=== PATIENT | male | born 1955 | race Caucasian/White ===

== ENCOUNTER 2017-07-15 16:54 | Inpatient (IN) | payer BC ==
[~2017-07-15] VITALS: Ht 177.8 cm; Wt 95.8 kg
[~2017-07-15 16:54] MED LIST: ALLO100T PO; AZIT250T12 PO; COLC0.6T53 PO; EMERGEN-C PO; FURO40TA4 PO; IPRA3AMP INH; LISI-556 PO; METO50TA15 PO; NEBU-140 MC; POTA-51 PO; RT-ALBUINH IH
--- OUTSIDE RECORDS SUMMARY | 2017-07-15 16:59 | XMS REPORT | Clinical Summary ---
Author Author [facility] Organization [facility] Address Unknown Phone Unavailable Care Team Providers Care Puddler [employer] D[employer] Name Role Phone PCP Unavailable Source Comments Some departments are not documenting in the electronic medical record. If you do not see the information that you expected, contact Release of Information in the Health Information Management department at [phone] for further assistance in locating additional records.[facility] Allergies No Known Allergies Current Medications Prescription Sig. Disp. Refills Start End Date Status Date albuterol (VENTOLIN HFA, Inhale 2 Puffs by mouth Active PROAIR HFA) 90 every 6 hours as needed mcg/actuation inhaler for Wheezing. colchicine 0.6 mg tablet Take 1.2 mg by mouth as Active Needed. lisinopril (PRINIVIL, Take 2.5 mg by mouth Active ZESTRIL) 2.5 mg tablet daily. albuterol-ipratropium Inhale 3 mL solution as Active (DUONEB) 0.5 mg-3 mg(2.5 directed every 4 hours as mg base)/3 mL nebulizer needed for Wheezing. solution furosemide (LASIX) 40 mg Take 40 mg by mouth twice Active tablet daily. allopurinol (ZYLOPRIM) Take 100 mg by mouth Active 100 mg tablet twice daily. metoprolol (LOPRESSOR) 25 Take 1 Tab by mouth twice 180 Tab 3 Active mg tablet daily. 15 Active Problems Problem Noted Date NICM (nonischemic cardiomyopathy) ([facility]) 06/01/2015 Alcohol use 06/01/2015 Tobacco use disorder 06/01/2015 Atrial flutter ([facility]) 05/31/2015 Family History Relation Name Status Comments Father Mother Alive Social History Tobacco Use Types Packs/Day Years Used Date Former Smoker Cigarettes 1 20 Quit: 04/30/2015 Tobacco Cessation: Counseling Given: Yes Alcohol Use Drinks/Week oz/Week Comments Yes 17 Shots of 10.2 liquor Sex Assigned at Date Recorded Not on file Last Filed Vital Signs Vital Sign Reading Time Taken Blood Pressure 111/66 06/02/2015 8:36 AM CDT Pulse 87 06/02/2015 9:10 AM CDT Temperature 36.8 C (98.3 F) 06/02/2015 8:36 AM CDT Respiratory Rate - - Oxygen Saturation 92% 06/02/2015 9:10 AM CDT Inhaled Oxygen - - Concentration Weight 87.5 kg (193 lb) 06/02/2015 7:15 AM CDT Height 180.3 cm (5' 10.98") 06/01/2015 1:12 PM CDT Body Mass Index 26.93 06/02/2015 7:15 AM CDT Plan of Treatment Health Maintenance Due Date Last Done Comments HEPATITIS C SCREENING 1955 PHYSICAL (COMPREHENSIVE) 12/22/1962 EXAM PERTUSSIS VACCINE 12/22/1966 TETANUS VACCINE 12/22/1972 COLORECTAL CANCER 12/22/2005 SCREENING SHINGLES VACCINE 2015 INFLUENZA VACCINE 03/03/2017 Results Not on filefrom Last 3 Months
--- OUTSIDE RECORDS SUMMARY | 2017-07-15 17:00 | XMS REPORT | Continuity of Care Document ---
Author Author [facility] Address Unknown Phone Unavailable Allergies Active Description Code Type Severity Reaction Onset Reported/Identified Relationship to Patient Clinical Status Yes No Known Drug Allergies [id number] Drug Allergy Unknown N/ A 12/09/2013 Medications Problems Date Dx Coded Attending Type Code Diagnosis Diagnosed By 06/23/2013 ELVIRA BARRIENTOS APRN V06.1 TDAP DX 05/02/2015 Ot 288.60 05/02/2015 Ot 786.07 05/02/2015 Ot 786.2 05/02/2015 MEMO LOPEZ, NATALIE Walton Ot 211.3 05/02/2015 MEMO LOPEZ, NATALIE Walton Ot 562.10 05/02/2015 MEMO LOPEZ, NATALIE Walton Ot V76.51 05/02/2015 NATALIE HAMPTON MD Ot V72.84 05/11/2015 Ot 288.60 05/11/2015 Ot 786.07 05/11/2015 Ot 786.2 05/11/2015 MEMO LOPEZ, NATALIE Walton Ot 211.3 05/11/2015 MEMO LOPEZ, NATALIE Walton Ot 562.10 05/11/2015 MEMO LOPEZ, NATALIE Walton Ot V76.51 05/11/2015 NATALIE HAMPTON MD Ot V72.84 05/24/2015 CALE LOPEZ, KEHINDE Issa Ot F17.210 05/24/2015 CALE LOPEZ, KEHINDE Issa Ot I10 05/24/2015 CALE LOPEZ, KEHINDE Issa Ot I42.9 05/24/2015 CALE LOPEZ, KEHINDE Issa Ot I44.1 05/24/2015 CALE LOPEZ, KEHINDE Issa Ot I48.92 05/24/2015 CALE LOPEZ, KEHINDE Issa Ot I50.21 05/24/2015 CALE LOPEZ, KEHINDE Issa Ot R60.0 05/25/2015 CALE LOPEZ, KEHINDE Issa Ot F17.210 05/25/2015 CALE LOPEZ, KEHINDE Issa Ot I10 05/25/2015 KEHINDE MADSEN MD Ot I42.9 05/25/2015 KEHINDE MADSEN MD Ot I44.1 05/25/2015 KEHINDE MADSEN MD Ot I48.92 05/25/2015 KEHINDE MADSEN MD Ot I50.21 05/25/2015 KEHINDE MADSEN MD Ot R60.0 05/25/2015 KEHINDE MADSEN MD Ot F17.210 05/25/2015 KEHINDE MADSEN MD Ot I10 05/25/2015 KEHINDE MADSEN MD Ot I42.9 05/25/2015 KEHINDE MADSEN MD Ot I44.1 05/25/2015 KEHINDE MADSEN MD Ot I48.92 05/25/2015 KEHINDE MADSEN MD Ot I50.21 05/25/2015 KEHINDE MADSEN MD Ot R60.0 05/25/2015 KEHINDE MADSEN MD Ot F17.210 NICOTINE DEPENDENCE, CIGARETTES, UNCOMPL 05/25/2015 KEHINDE MADSEN MD Ot I10 ESSENTIAL (PRIMARY) HYPERTENSION 05/25/2015 KEHINDE MADSEN MD Ot I42.9 CARDIOMYOPATHY, UNSPECIFIED 05/25/2015 KEHINDE MADSEN MD Ot I44.1 ATRIOVENTRICULAR BLOCK, SECOND DEGREE 05/25/2015 KEHINDE MADSEN MD Ot I48.92 UNSPECIFIED ATRIAL FLUTTER 05/25/2015 KEHINDE MADSEN MD Ot I50.21 ACUTE SYSTOLIC (CONGESTIVE) HEART FAILUR 05/25/2015 KEHINDE MADSEN MD Ot M10.9 GOUT, UNSPECIFIED 05/25/2015 KEHINDE MADSEN MD Ot N28.9 DISORDER OF KIDNEY AND URETER, UNSPECIFI 05/25/2015 KEHINDE MADSEN MD Ot R60.0 LOCALIZED EDEMA 05/25/2015 KEHINDE MADSEN MD Ot R79.89 OTHER SPECIFIED ABNORMAL FINDINGS OF BLO 05/25/2015 KEHINDE MADSEN MD Ot Z23 ENCOUNTER FOR IMMUNIZATION 05/31/2015 KEHINDE MADSEN MD Ot F17.210 NICOTINE DEPENDENCE, CIGARETTES, UNCOMPL 05/31/2015 KEHINDE MADSEN MD Ot I10 ESSENTIAL (PRIMARY) HYPERTENSION 05/31/2015 KEHINDE MADSEN MD Ot I48.92 UNSPECIFIED ATRIAL FLUTTER 05/31/2015 CALE LOPEZ, KEHINDE Issa Ot I50.23 ACUTE ON CHRONIC SYSTOLIC (CONGESTIVE) H 05/31/2015 CALE LOPEZ, KEHINDE Issa Ot R17 UNSPECIFIED JAUNDICE 05/31/2015 KEHINDE MADSEN MD Ot R79.89 OTHER SPECIFIED ABNORMAL FINDINGS OF BLO 05/31/2015 KEHINDE MADSEN MD Ot 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 06/05/2015 ASYA MARTIN APRN Ot F17.210 06/05/2015 ASYA MARTIN APRN Ot R00.0 06/05/2015 ASYA MARTIN APRN Ot R06.02 06/07/2015 KEHINDE MADSEN MD Ot G47.33 OBSTRUCTIVE SLEEP APNEA (ADULT) ( PEDIATR 06/07/2015 CALE LOPEZ, KEHINDE Issa Ot G47.61 PERIODIC LIMB MOVEMENT DISORDER 06/07/2015 KEHINDE MADSEN MD Ot I48.91 UNSPECIFIED ATRIAL FIBRILLATION 10/08/2015 JOE BRAVO L MASK DESIGN ENGINEER Ot I42.0 10/08/2015 JOE BRAVO L MASK DESIGN ENGINEER Ot I48.3 10/08/2015 JOE BRAVO L MASK DESIGN ENGINEER Ot I48.91 06/09/2016 MEMO LOPEZ, NATALIE Walton Ot 211.3 BENIGN NEOPLASM LG BOWEL 06/09/2016 MEMO LOPEZ, NATALIE Walton Ot 562.10 DIVERTICULOSIS COLON (W/O MENT OF HEMORR 06/09/2016 MEMO LOPEZ, NATALIE Walton Ot V76.51 SCREEN MAL NEOP-COLON 06/09/2016 MEMO LOPEZ, NATALIE Walton Ot V72.84 EXAM PRE-OPERATIVE NOS 06/09/2016 ASYA MARTIN FLOOR PERSON Ot F17.210 NICOTINE DEPENDENCE, CIGARETTES, UNCOMPL 06/09/2016 ASYA MARTIN FLOOR PERSON Ot R00.0 TACHYCARDIA, UNSPECIFIED 06/09/2016 ASYA MARTIN APRN Ot R06.02 SHORTNESS OF BREATH 06/09/2016 JOE BRAVO MASK DESIGN ENGINEER Ot I42.0 DILATED CARDIOMYOPATHY 06/09/2016 BAIJOE CHANG L MASK DESIGN ENGINEER Ot I48.3 TYPICAL ATRIAL FLUTTER 06/09/2016 JOE BRAVO L MASK DESIGN ENGINEER Ot I48.91 UNSPECIFIED ATRIAL FIBRILLATION Procedures Code Description Performed By Performed On [id number] 05/22/2015 [id number] 05/22/2015 [id number] 05/22/2015 Results Encounters ACCT No. Visit Date/Time Discharge Status Pt. Type Provider Facility Loc./Unit Complaint [id number] 06/23/2013 15:01:00 06/23/2013 23: 59:59 CLS Outpatient ELVIRA BARRIENTOS APRN [id number] 09/19/2015 07:58:00 2015 23:59:59 CLS Outpatient JOE BRAVO [facility] CARD CARDIOMYOPATHY,AFIB [id number] 06/06/2015 20:06:00 2014 04:25:00 DIS Outpatient KEHINDE MADSEN MD [facility] SLEEP WITNESSED APNEA, CAD [id number] 05/30/2015 09:00:00 2014 17:44:00 DIS Inpatient KEHINDE MADSEN MD [facility] ICU SINUS TACHYCARDIA, A FIB [id number] 05/21/2015 10:34:00 2014 12:00:00 DIS Inpatient KEHINDE MADSEN MD [facility] CSD WIDE COMPLEX TACHYCARDIA,DSYPNEA,EDEMA ,ACUTE HF [id number] 05/21/2015 09:40:00 2014 23:59:59 CLS Outpatient ASYA MARTIN APRN [facility] RAD SHORTNESS OF BREATH [id number] 12/09/2013 06:51:00 2013 23:59:59 CLS Outpatient NATALIE HAMPTON MD [facility] SDC SCREENING [id number] 12/08/2013 10:17:00 2013 23:59:59 CLS Outpatient NATALIE HAMPTON MD [facility] PREOP SCREENING [id number] 07/15/2017 16:55:00 ACT Emergency JIAN DASILVA MD [facility] ER COUGH;FEVER;SOA [id number] 12/04/2009 07:18:00 Document Registration
[2017-07-15] MEDS ORDERED: cefTRIAXone 1 GM (ROCEPHIN) VIAL IV STA (17:41)
[2017-07-15] MEDS ORDERED: NS IV PRN (17:45)
[2017-07-15] MEDS ORDERED: ACETAMINOPHEN 500 MG TAB (TYLENOL) PO PRN (17:45)
[2017-07-15] MEDS ORDERED: RT-ALBUTEROL/IPRATROPIUM 3 ML (DUONEB) VIAL INH ONE ×2 (17:45→20:00)
[2017-07-15 18:02] LABS: BASOPHILS % (AUTO) 0 % (0-10); EOSINOPHILS % (AUTO) 0 % (0-10); LYMPHOCYTES # (AUTO) 1.3 X 10^3 (1.0-4.0); LYMPHOCYTES % (AUTO) 5 % (12-44); MEAN CORPUSCULAR HEMOGLOBIN 35 PG (25-34); MEAN CORPUSCULAR HGB CONC 36 G/DL (32-36); MEAN CORPUSCULAR VOLUME 98 FL (80-99); MEAN PLATELET VOLUME 10.7 FL (7.4-10.4); MONOCYTES # (AUTO) 3.2 X 10^3 (0.0-1.0); MONOCYTES % (AUTO) 12 % (0-12); NEUTROPHILS # (AUTO) 21.3 X 10^3 (1.8-7.8); NEUTROPHILS % (AUTO) 83 % (42-75); PLATELET COUNT 143 10^3/uL (130-400); RED BLOOD COUNT 4.44 10^6/uL (4.35-5.85); RED CELL DISTRIBUTION WIDTH 12.7 % (10.0-14.5); WHITE BLOOD COUNT 25.7 10^3/uL (4.3-11.0)
[2017-07-15 18:13] LABS: INR 1.1 (0.8-1.4); PROTHROMBIN TIME PATIENT 14.5 SEC (12.2-14.7)
[2017-07-15 18:20] LABS: ALANINE AMINOTRANSFERASE 36 U/L (0-55); ALBUMIN 4.2 GM/DL (3.2-4.5); ANION GAP 12 MMOL/L (5-14); ASPARTATE AMINO TRANSFERASE 29 U/L (5-34); BLOOD UREA NITROGEN 16 MG/DL (7-18); BUN/CREATININE RATIO 15; CALCIUM 9.7 MG/DL (8.5-10.1); CARBON DIOXIDE 26 MMOL/L (21-32); CHLORIDE 89 MMOL/L (98-107); CREATININE SERUM 1.09 MG/DL (0.60-1.30); GFR ESTIMATED > 60; GLUCOSE 121 MG/DL (70-105); SODIUM 127 MMOL/L (135-145); TOTAL PROTEIN 7.6 GM/DL (6.4-8.2)
[2017-07-15 18:28] LABS: TROPONIN I < 0.30 NG/ML (<0.30)
--- NOTE | 2017-07-15 18:31 | Diagnostic Imaging Report ---
Patient History: Cough and congestion Technique: Single frontal view of the chest Comparison: 05/30/2015 FINDINGS: Lung volumes are mildly large. There is minimal opacity in the right lung base, likely scarring given the stability since 2014. No new focal consolidation is seen. No pleural effusion or pneumothorax is present. There are old right-sided rib fractures. The cardiac silhouette is normal in size. IMPRESSION: No acute pulmonary abnormality is seen. Dictated by: Dictated on workstation # [id number]
[2017-07-15 18:35] LABS: BILIRUBIN,URINE NEGATIVE (NEGATIVE); KETONES,URINE 3+ (NEGATIVE); LEUKOCYTE ESTERASE ,URINE 3+ (NEGATIVE); NITRITE,URINE POSITIVE (NEGATIVE); PH,URINE 6 (5-9); PROTEIN,URINE 3+ (NEGATIVE); UROBILINOGEN,URINE NORMAL (NORMAL)
[2017-07-15 18:49] LABS: WBC,URINE TNTC /HPF
[2017-07-15 18:54] LABS: BAND NEUTROPHILS 4 %; BASOPHILS % (MANUAL) 0 %; EOSINOPHILS % (MANUAL) 0 %; LYMPHOCYTES % (MANUAL) 11 %; NEUTROPHILS % (MANUAL) 81 %
[2017-07-15] MEDS ORDERED: IOHEXOL 350 MG/ML 100 ML (OMNIPAQUE 350) VIAL IV ONE (19:00)
[2017-07-15] MEDS ORDERED: NS 100 ML (IVPB) BAG IV ONE (19:00)
--- NOTE | 2017-07-15 19:32 | Diagnostic Imaging Report ---
PROCEDURE: CT abdomen and pelvis with contrast. TECHNIQUE: Multiple contiguous axial images were obtained through the abdomen and pelvis after administration of intravenous contrast. INDICATION: Low back pain with UTI for three days. COMPARISON: None. FINDINGS: The lung bases are clear. The heart is normal in size. There is no pericardial effusion. There is hepatic steatosis of the liver with no focal hepatic lesion seen. The spleen, pancreas and adrenal glands appear normal. A small splenule is noted. There is decreased enhancement extending to the cortex of the posterolateral superior right kidney, with surrounding perirenal stranding, bilaterally. There is also an area of decreased enhancement in the anterior left kidney (image 36 series 2). There is mild bilateral periureteral stranding. No evidence of obstruction or hydronephrosis is seen. The bowel loops are nondistended. No evidence of obstruction is seen. The appendix appears mildly large, but no periappendiceal fat stranding or fluid collections are seen. No free fluid or free air is seen. No acute osseous abnormality is seen. IMPRESSION: 1. Bilateral pyelonephritis. No hydronephrosis. 2. Hepatic steatosis. Dictated by: Dictated on workstation # [id number]
--- NOTE | 2017-07-15 19:47 | ED General ---
General Chief Complaint: Fever-Adult/Adol Stated Complaint: COUGH;FEVER;SOA Nursing Triage Note: C/O FEVER, COUGH SOA. STATES HE HAS NEB TX AT HOME BUT DID NOT COMPLETE TX TODAY. WENT TO URGENT CARE WHO SENT PT. TO ER. Nursing Sepsis Screen: No Definite Risk Source of Information: Patient, Spouse Exam Limitations: No Limitations History of Present Illness Initial Comments 61-year-old male patient presents to the emergency department with complaints of 102.5 fever, cough, shortness of air the last couple of days. Patient has used his nebulizer treatments at home without improvement. Was not able to tolerate the full treatment. Patient went to urgent care and was told to come to the emergency department. Denies any nausea, vomiting, diarrhea, abdominal pain. Does report poor appetite. Allergies and Home Medications Allergies Coded Allergies: No Known Drug Allergies (Unverified , 12/09/13) Home Medications Albuterol Sulfate 8.5 Gm Hfa.aer.ad, 8.5 GM IH BID, #1 Ref 6 Prescribed by: KEHINDE NICOLAS on 05/25/15 0935 Allopurinol 100 Mg Tablet, 100 MG PO BIDPC, #60 Ref 6 Prescribed by: KEHINDE NICOLAS on 05/25/15 0935 Colchicine 0.6 Mg Tablet, 0.6 MG PO UD, #30 Ref 1 2PILLS AT ONSET OF GOUT PAIN, 1PILL 6 HOURS LATER IF NEEDED. NOT TO EXCEED 4PILLS IN 24HOURS Prescribed by: KEHINDE NICOLAS on 05/25/15 0937 Furosemide 40 Mg Tablet, 40 MG PO DAILY@07,12, #60 Ref 6 Prescribed by: KEHINDE NICOLAS on 05/25/15 0935 Ipratropium/Albuterol Sulfate 3 Ml Ampul.neb, 3 ML INH RTQ4HR PRN for SOB , #30 Ref 1 Prescribed by: KEHINDE NICOLAS on 05/25/15 0935 Lisinopril 5 Mg Tablet, 2.5 MG PO DAILY, #30 Ref 6 Prescribed by: KEHINDE NICOLAS on 05/25/15 0935 Metoprolol Tartrate 50 Mg Tablet, 25 MG PO TID, #90 Ref 6 Prescribed by: KEHINDE NICOLAS on 05/25/15 0935 Potassium Chloride 20 Meq Tablet.er, 20 MEQ PO BID, #60 Ref 6 Prescribed by: KEHINDE NICOLAS on 05/25/15 0935 [Emergen-C] , 1,000 UNITS PO DAILY, (Reported) Past Rrqrcxc-Yycdkz-Efwqdc Hx Patient Social History Alcohol Use: Occasionally Uses Recreational Drug Use: No Smoking Status: Current Everyday Smoker 2nd Hand Smoke Exposure: No Recent Foreign Travel: No Contact w/Someone Who Travel: No Recent Infectious Disease Expo: No Immunizations Up To Date Tetanus Booster (TDap): Less than 5yrs Date of Pneumonia Vaccine: May 25, 2015 Date of Influenza Vaccine: May 25, 2015 Seasonal Allergies Seasonal Allergies: No Surgeries History of Surgeries: Yes (CARDIAC ABLASION) Surgeries: Orthopedic Respiratory History of Respiratory Disorde: Yes Respiratory Disorders: COPD Cardiovascular History of Cardiac Disorders: Yes Cardiac Disorders: Atrial Fibrillation, Hypertension Neurological History of Neurological Disord: No Reproductive System Hx Reproductive Disorders: No Genitourinary History of Genitourinary Disor: No Gastrointestinal History of Gastrointestinal Di: No Musculoskeletal History of Musculoskeletal Dis: Yes (ROTATOR CUFF SURGERY LAST YEAR) Musculoskeletal Disorders: Gout Endocrine History of Endocrine Disorders: No HEENT History of HEENT Disorders: No Cancer History of Cancer: No Psychosocial History of Psychiatric Problem: No Integumentary History of Skin or Integumenta: No Blood Transfusions History of Blood Disorders: No Adverse Reaction to a Blood Tr: No Family Medical History Significant Family History: Heart Disease, Diabetes, Hypertension Family Medial History: Cardiovascular disease G8 BROTHER Hypertension G8 BROTHER Physical Exam-Suspected Sepsis Physical Exam Vital Signs Vital Sign - Last 12Hours 07/15/17 07/15/17 17:27 17:52 Temp 103.1 Pulse 120 Resp 22 B/P (MAP) 184/82 (116) Pulse Ox 90 O2 Delivery Room Air O2 Flow Rate 2.00 Capillary Refill : Less Than 3 Seconds Blood Pressure Mean: 116 Focused Exam Evaluation Lactate Level Laboratory Tests 07/15/17 17:48: Lactic Acid Level 1.01 Lactic Acid Level Laboratory Tests Test 07/15/17 17:48 Lactic Acid Level 1.01 MMOL/L (0.50-2.00) Progress/Results/Core Measures Suspected Sepsis Recent Fever Within 48 Hours: Yes Infection Criteria Present: Suspected New Infection New/Unexplained Altered Menta: No Sepsis Screen: No Definite Risk Sepsis Diagnosis: SIRS Temperature:103.1 Pulse: 120 Respiratory Rate: 22 Laboratory Tests 07/15/17 17:48: White Blood Count 25.7H Blood Pressure 184 /82 Mean: 116 Laboratory Tests 07/15/17 17:48: Lactic Acid Level 1.01 Laboratory Tests 07/15/17 17:48: Creatinine 1.09, INR Comment 1.1, Platelet Count 143, Total Bilirubin 4.0H Results/Orders Lab Results Laboratory Tests Test 07/15/17 17:48 07/15/17 17:50 Range/Units White Blood Count 25.7 H 4.3-11.0 10^3/uL Red Blood Count 4.44 4.35-5.85 10^6/uL Hemoglobin 15.5 13.3-17.7 G/DL Hematocrit 44 40-54 % Mean Corpuscular Volume 98 80-99 FL Mean Corpuscular Hemoglobin 35 H 25-34 PG Mean Corpuscular Hemoglobin Concent 36 32-36 G/DL Red Cell Distribution Width 12.7 10.0-14.5 % Platelet Count 143 130-400 10^3/uL Mean Platelet Volume 10.7 H 7.4-10.4 FL Neutrophils (%) (Auto) 83 H 42-75 % Lymphocytes (%) (Auto) 5 L 12-44 % Monocytes (%) (Auto) 12 0-12 % Eosinophils (%) (Auto) 0 0-10 % Basophils (%) (Auto) 0 0-10 % Neutrophils # (Auto) 21.3 H 1.8-7.8 X 10^3 Lymphocytes # (Auto) 1.3 1.0-4.0 X 10^3 Monocytes # (Auto) 3.2 H 0.0-1.0 X 10^3 Eosinophils # (Auto) 0.0 0.0-0.3 10^3/uL Basophils # (Auto) 0.0 0.0-0.1 10^3/uL Neutrophils % (Manual) 81 % Lymphocytes % (Manual) 11 % Monocytes % (Manual) 4 % Eosinophils % (Manual) 0 % Basophils % (Manual) 0 % Band Neutrophils 4 % Blood Morphology Comment NORMAL Prothrombin Time 14.5 12.2-14.7 SEC INR Comment 1.1 0.8-1.4 Activated Partial Thromboplast Time 33 24-35 SEC D-Dimer 1.54 H 0.00-0.49 UG/ML Sodium Level 127 L 135-145 MMOL/L Potassium Level 4.0 3.6-5.0 MMOL/L Chloride Level 89 L 98-107 MMOL/L Carbon Dioxide Level 26 21-32 MMOL/L Anion Gap 12 5-14 MMOL/L Blood Urea Nitrogen 16 7-18 MG/DL Creatinine 1.09 0.60-1.30 MG/DL Estimat Glomerular Filtration Rate > 60 BUN/Creatinine Ratio 15 Glucose Level 121 H 70-105 MG/DL Lactic Acid Level 1.01 0.50-2.00 MMOL/L Calcium Level 9.7 8.5-10.1 MG/DL Total Bilirubin 4.0 H 0.1-1.0 MG/DL Aspartate Amino Transf (AST/SGOT) 29 5-34 U/L Alanine Aminotransferase (ALT/SGPT) 36 0-55 U/L Alkaline Phosphatase 76 40-136 U/L Troponin I < 0.30 <0.30 NG/ML Total Protein 7.6 6.4-8.2 GM/DL Albumin 4.2 3.2-4.5 GM/DL Urine Color ELSA H Urine Clarity VERY CLOUDY H Urine pH 6 5-9 Urine Specific [place] 1.010 L 1.016-1.022 Urine Protein 3+ H NEGATIVE Urine Glucose (UA) NEGATIVE NEGATIVE Urine Ketones 3+ H NEGATIVE Urine Nitrite POSITIVE H NEGATIVE Urine Bilirubin NEGATIVE NEGATIVE Urine Urobilinogen NORMAL NORMAL MG/DL Urine Leukocyte Esterase 3+ H NEGATIVE Urine RBC (Auto) 5+ H NEGATIVE Urine RBC 50-100 H /HPF Urine WBC TNTC H /HPF Urine Crystals NONE /LPF Urine Bacteria LARGE H /HPF Urine Casts NONE /LPF Urine Mucus NEGATIVE /LPF Urine Culture Indicated YES Micro Results Microbiology 07/15/17 Influenza Types A,B Antigen (NADYA) - Final, Complete My Orders Orders - ROMÁN BRYANT PA Albuterol/Ipra Inhalation Soln (Duoneb I (07/15/17 17:45) Svn Sm Volume Nebulizer Rt-Rfs (07/15/17 17:40) Cbc With Automated Diff (07/15/17 17:41) Comprehensive Metabolic Panel (07/15/17 17:41) Lactic Acid Analyzer (07/15/17 17:41) Blood Culture (07/15/17 17:41) Sputum Culture (07/15/17 17:41) Ua Culture If Indicated (07/15/17 17:41) Protime With Inr (07/15/17 17:41) Partial Thromboplastin Time (07/15/17 17:41) Chest 1 View, Ap/Pa Only (07/15/17 17:41) O2 (07/15/17 17:41) Acetaminophen Tablet (Tylenol Tablet) (07/15/17 17:45) Saline Lock/Iv-Start (07/15/17 17:41) Saline Lock/Iv-Start (07/15/17 17:41) Ekg Tracing (07/15/17 17:41) Troponin I (07/15/17 17:41) Ns Iv 1000 Ml (Sodium Chloride 0.9%) (07/15/17 17:45) Vital Signs Adult Sepsis Patie Q1H (07/15/17 17:41) Ceftriaxone Injection (Rocephin Injectio (07/15/17 17:41) Remove Rings In Anticipation O (07/15/17 17:41) Influenza A And B Antigens (07/15/17 17:41) Manual Differential (07/15/17 17:48) Urine Culture (07/15/17 17:50) Ct Abdomen/Pelvis W (07/15/17 18:56) Albuterol/Ipra Inhalation Soln (Duoneb I (07/15/17 20:00) Svn Sm Volume Nebulizer Rt-Rfs (07/15/17 19:47) Albuterol Pre-Mix Nebs (Rt) (Proventil (07/15/17 20:31) Fibrin Degradation Products (07/15/17 20:31) Svn Sm Volume Nebulizer Rt-Rfs (07/15/17 20:31) Levofloxacin 750 Mg/150 Ml Iv (Levaquin (07/15/17 20:37) Medications Given in ED Current Medications Medications Dose Ordered Sig/Sourav Route Start Time Stop Time Status Last Admin Dose Admin Acetaminophen 1,000 mg ONCE PRN PO 07/15/17 17:45 07/15/17 18:14 DC 07/15/17 18:10 1,000 MG Albuterol/ Ipratropium 3 ml ONCE ONCE INH 07/15/17 17:45 07/15/17 17:46 DC 07/15/17 18:06 3 ML Albuterol/ Ipratropium 3 ml ONCE ONCE INH 07/15/17 20:00 12/13/17 20:01 DC 07/15/17 19:55 3 ML Iohexol 100 ml ONCE ONCE IV 07/15/17 19:00 07/15/17 19:04 DC 07/15/17 19:10 100 ML Sodium Chloride 100 ml ONCE ONCE IV 07/15/17 19:00 07/15/17 19:04 DC 07/15/17 19:10 80 ML Sodium Chloride 2,844.03 ml @ 1,422.015 mls/hr PRN PRN IV 07/15/17 17:45 07/15/17 18:07 1,422.015 MLS/HR Vital Signs/I&O Vital Sign - Last 12Hours 07/15/17 07/15/17 07/15/17 07/15/17 17:27 17:45 17:52 17:54 Temp 103.1 103.1 Pulse 120 120 Resp 22 22 B/P (MAP) 184/82 (116) 184/82 Pulse Ox 90 91 90 O2 Delivery Room Air Room Air Nasal Cannula O2 Flow Rate 2.00 2.00 07/15/17 07/15/17 19:55 20:39 Pulse Ox 96 93 O2 Delivery Nasal Cannula Nasal Cannula O2 Flow Rate 2.00 3.00 Capillary Refill : Less Than 3 Seconds Blood Pressure Mean: 116 Departure Communication (Admissions) Time/Spoke to Admitting Phy: 17:[address] Nicolas graciously accepts patient Impression Impression: Primary Impression: Sepsis Additional Impressions: Acute pyelonephritis Hyponatremia Acute bronchitis Tobacco dependence Disposition: ADMITTED INPATIENT Condition: Stable Admissions Decision to Admit Reason: Admit from ER (General) Decision to Admit/Date: Jul 15, 2017 Time/Decision to Admit Time: 17:45 Departure-Patient Inst. Referrals: KEHINDE NICOLAS MD (PCP/Family) Primary Care Physician ROMÁN BRYANT Jul 15, 2017 19:47
[2017-07-15] MEDS ORDERED: RT-ALBUTEROL SULF 2.5 MG/3 ML PRE-MIX VIAL INH STA (20:31)
[2017-07-15] MEDS ORDERED: LEVOFLOXACIN 750 MG/150 ML IV 150 ML IV STA (20:37)
[2017-07-15 21:30] VITALS: BP 146/74
[2017-07-15] MEDS ORDERED: ONDANSETRON 4 MG/2 ML (SDV) Z0FRAN IV PRN (22:15)
[2017-07-15] MEDS ORDERED: CATHETER FLUSH 10 ML SYR IV PRN (22:15)
[2017-07-15] MEDS: NS IV 1000 ML 1,000 ML IV SCH (22:43)
[2017-07-15] MEDS ORDERED: LEVOFLOXACIN 750 MG/150 ML IV 150 ML IV ONE (22:49)
[2017-07-15] MEDS: KETOROLAC 30 MG/ML VIAL IV PRN (23:20)
[2017-07-16] VITALS (7 sets, daily range): BP systolic 110–146; BP diastolic 61–83
[2017-07-16] MEDS ORDERED: RT-ALBUTEROL/IPRATROPIUM 3 ML (DUONEB) VIAL INH PRN (00:30)
[2017-07-16] MEDS: RT-ALBUTEROL/IPRATROPIUM 3 ML (DUONEB) VIAL INH SCH ×6 (02:00→22:20)
[2017-07-16] MEDS: NS IV 1000 ML 1,000 ML IV SCH ×5 (02:48→22:58)
[2017-07-16 05:31] LABS: BASOPHILS % (AUTO) 0 % (0-10); EOSINOPHILS % (AUTO) 0 % (0-10); LYMPHOCYTES # (AUTO) 0.7 X 10^3 (1.0-4.0); LYMPHOCYTES % (AUTO) 3 % (12-44); MEAN CORPUSCULAR HEMOGLOBIN 35 PG (25-34); MEAN CORPUSCULAR HGB CONC 35 G/DL (32-36); MEAN CORPUSCULAR VOLUME 100 FL (80-99); MEAN PLATELET VOLUME 10.3 FL (7.4-10.4); MONOCYTES # (AUTO) 2.3 X 10^3 (0.0-1.0); MONOCYTES % (AUTO) 11 % (0-12); NEUTROPHILS # (AUTO) 18.8 X 10^3 (1.8-7.8); NEUTROPHILS % (AUTO) 86 % (42-75); PLATELET COUNT 109 10^3/uL (130-400); RED BLOOD COUNT 3.82 10^6/uL (4.35-5.85); RED CELL DISTRIBUTION WIDTH 12.7 % (10.0-14.5); WHITE BLOOD COUNT 21.9 10^3/uL (4.3-11.0)
[2017-07-16 05:57] LABS: ALANINE AMINOTRANSFERASE 29 U/L (0-55); ALBUMIN 3.5 GM/DL (3.2-4.5); ANION GAP 11 MMOL/L (5-14); ASPARTATE AMINO TRANSFERASE 29 U/L (5-34); BILIRUBIN,TOTAL 2.6 MG/DL (0.1-1.0); BLOOD UREA NITROGEN 16 MG/DL (7-18); BUN/CREATININE RATIO 16; CALCIUM 7.9 MG/DL (8.5-10.1); CARBON DIOXIDE 22 MMOL/L (21-32); CHLORIDE 97 MMOL/L (98-107); CREATININE SERUM 1.03 MG/DL (0.60-1.30); GFR ESTIMATED > 60; GLUCOSE 122 MG/DL (70-105); SODIUM 130 MMOL/L (135-145); TOTAL PROTEIN 5.5 GM/DL (6.4-8.2)
[2017-07-16] MEDS: CATHETER FLUSH 10 ML SYR IV SCH ×3 (06:00→22:13)
[2017-07-16] MEDS ORDERED: INFLUENZA TRIvalent 2017-2018 0.5 ML/45 MCG SYR IM ONE (07:00)
[2017-07-16] MEDS ORDERED: LISI2.5T PO (07:53)
[2017-07-16] MEDS ORDERED: METO-333 PO (07:53)
[2017-07-16] MEDS ORDERED: FURO40TA4 PO (07:53)
[2017-07-16] MEDS ORDERED: POTA20TA15 PO (07:53)
[2017-07-16] MEDS ORDERED: ALLO100T PO (07:53)
[2017-07-16] MEDS ORDERED: ALBU2.5V4 NEB (07:53)
[2017-07-16] MEDS ORDERED: RT-ALBUINH INH (07:53)
[2017-07-16] MEDS: ACETAMINOPHEN 500 MG TAB (TYLENOL) PO PRN ×2 (08:40→15:36)
[2017-07-16] MEDS ORDERED: ASCO-341 PO (09:06)
--- NOTE | 2017-07-16 09:21 | History & Physicial ---
History of Present Illness History of Present Illness Reason for visit/HPI PT IS A 61 Y/O MALE WHO HAS BEEN ADMITTED TO THE HOSPITAL WITH PYELONEPHRITIS, HE IS KNOWN TO ME FROM CLINIC. THE PATIENT REPORTS THAT HE HAS NOT BEEN FEELING WELL FOR ABOUT 7-10 DAYS. HE STATES THAT HE HAD BEEN HAVING TROUBLE URINATING FOR THE PAST WEEK AND HE HAS BEEN HAVING INCREASING DISCOMFORT WITH URINATION OVER THE PAST 3 DAYS. HIS REPORTS THAT ON THURSDAY HE CAME HOME AT LUNCH AND DID NOT GO BACK TO WORK. SHE STATES THAT SHE TRIED TO GET HIM TO CALL THE OFFICE ON THURSDAY, BUT JUSTUS DID NOT CALL THE OFFICE. SHE REPORTS THAT HE DID NOT GO IN TO WORK ON THURSDAY AND SHE TOLD HIM AGAIN TO CALL MY OFFICE TO BE SEEN, BUT BY THE TIME SHE GOT HOME FROM WORK AT 3:30 - 3:45, HE HAD NOT YET CALLED THE OFFICE. SHE REPORTS THAT SHE CALLED THE OFFICE AFTER 4PM , AND WAS ADVISED AT THAT TIME TO GO TO [facility] OR THE HOSPITAL. THEY WENT TO [facility], THEN WERE ADVISED FROM THE PROVIDERS AT THAT CLINIC TO GO TO THE HOSPITAL BECAUSE HE WAS TOO SICK TO BE CARED FOR AN OUTPATIENT. HE WAS SEEN IN THE EMERGENCY DEPARTMENT AND FOUND TO HAVE ELEVATED WHITE COUNT, FEVER, AND PYELONEPHRITIS. TODAY HE STATES THAT HE IS STILL FEELING POORLY, BUT HE IS BETTER THAN ON ADMISSION. Date of Admission Jul 15, 2017 at 20:30 Date Seen by Provider: Jul 16, 2017 Time Seen by Provider: 08:45 Attending Physician Kehinde Nicolas MD Admitting Physician Kehinde Nicolas MD Consult Allergies and Home Medications Allergies Coded Allergies: No Known Drug Allergies (Unverified , 12/09/13) Home Medications Albuterol Sulfate 1 Puff Puff, 2 PUFF INH Q6H PRN for SHORTNESS OF BREATH, ( Reported) Albuterol Sulfate 2.5 Mg/3 Ml Vial.neb, 2.5 MG NEB QID PRN for SHORTNESS OF BREATH, (Reported) Allopurinol 100 Mg Tablet, 100 MG PO DAIILY, (Reported) Ascorbic Acid/Multivit-Min 1,000 Mg Effpowdpkt, 1,000 MG PO DAILY, (Reported) Furosemide 40 Mg Tablet, 40 MG PO DAILY, (Reported) Lisinopril 2.5 Mg Tablet, 2.5 MG PO DAILY, (Reported) Metoprolol Tartrate 25 Mg Tablet, 25 MG PO DAILY, (Reported) Potassium Chloride 20 Meq Tab.er.prt, 20 MEQ PO DAILY, (Reported) Past Agimnbk-Fmetjv-Kfnskw Hx Patient Social History Marrital Status: Living Status: LIVES AT HOME WITH SPOUSE Employed/Student: employed Alcohol Use: Regular Use Number of Drinks Today: 2 Alcohol Beverage of Choice: [place] Recreational Drug Use: No Smoking Status: Current Everyday Smoker Type Used: Cigarettes 2nd Hand Smoke Exposure: No Physical Abuse Screen: No Sexual Abuse: No Recent Foreign Travel: No Contact w/other who traveled: No Recent Hopitalizations: No Recent Infectious Disease Expo: No Immunizations Up To Date Tetanus Booster (TDap): Less than 5yrs Date of Pneumonia Vaccine: May 25, 2015 Date of Influenza Vaccine: May 25, 2015 Seasonal Allergies Seasonal Allergies: No Surgeries Yes (CARDIAC ABLASION) Orthopedic Respiratory Yes Sleep Apnea Currently Using CPAP: No (DOESN'T WEAR) Cardiovascular Yes Atrial Fibrillation, Hypertension Neurological No Reproductive System Hx Reproductive Disorders: No Sexually Transmitted Disease: No HIV/AIDS: No Genitourinary No Gastrointestinal No Musculoskeletal Yes (ROTATOR CUFF SURGERY LAST YEAR) Gout Endocrine History of Endocrine Disorders: No HEENT History of HEENT Disorders: No Loss of Vision: Denies Cancer No Psychosocial History of Psychiatric Problem: No Integumentary History of Skin or Integumenta: No Blood Transfusions History of Blood Disorders: No Adverse Reaction to a Blood Tr: No Reviewed Nursing Assessment Reviewed/Agree w Nursing PMH: Yes Family Medical History Significant Family History: Heart Disease, Diabetes, Hypertension Family Hx: Cardiovascular disease G8 BROTHER Hypertension G8 BROTHER Constitutional: No chills, fever, malaise, weakness EENTM: No hearing loss, No hoarseness, No throat pain Respiratory: No cough, dyspnea on exertion, short of breath Cardiovascular: No chest pain, No palpitations Gastrointestinal: abdominal pain, No constipation, No diarrhea, No loss of appetite, No nausea Genitourinary: frequency Musculoskeletal: back pain Skin: no symptoms reported Psychiatric/Neurological: No Symptoms Reported All Other Systems Reviewed Negative Unless Noted: Yes Physical Exam Vital Signs Vital Sign - Last 12Hours 07/15/17 07/15/17 17:27 17:52 Temp 103.1 Pulse 120 Resp 22 B/P (MAP) 184/82 (116) Pulse Ox 90 O2 Delivery Room Air O2 Flow Rate 2.00 Capillary Refill : Less Than 3 Seconds General Appearance: No Apparent Distress, WD/WN Eyes: Bilateral Eye Normal Inspection, Bilateral Eye PERRL, Bilateral Eye EOMI HEENT: PERRL/EOMI, Pharynx Normal Neck: Full Range of Motion, Supple Respiratory: Chest Non Tender, Lungs Clear, Normal Breath Sounds, No Accessory Muscle Use Cardiovascular: Regular Rate, Rhythm, No Edema Gastrointestinal: Normal Bowel Sounds, Non Tender, Soft Rectal: Deferred Back: CVA Tenderness (L), CVA Tenderness (R) Extremity: Normal Capillary Refill, Non Tender, No Calf Tenderness, No Pedal Edema Neurologic/Psychiatric: Alert, Oriented x3, No Motor/Sensory Deficits, Normal Mood/Affect, clinical rehabilitation aide II-XII Norm as Tested Skin: Normal Color, Warm/Dry Lymphatic: No Adenopathy Assessment/Plan Assessment and Plan PYELONEPHRITIS WITH ECOLI FEVER HYPERTENSION ATRIAL FIBRILLATION TOBACCOISM HYPONATREMIA HYPERBILIRUBINEMIA COPD GOUT PYELONEPHRITIS WITH ECOLI - PT ON IV ANTIBIOTIC - ROCEPHIN - CONTINUE WITH TREATMENT - WAITING ON SENSITIVITIES FEVER - IMPROVED HYPERTENSION - STABLE - CONTINUE WITH HOME MEDICATION. ATRIAL FIBRILLATION - STABLE - MONITOR TOBACCOISM - CHRONIC - SUPPORTIVE CARE HYPONATREMIA - ON IV FLUIDS - CONTINUE WITH NORMAL SALINE AND MONITOR CMP. 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 COPD - DUE TO CHRONIC TOBACCOISM - MONITOR, RESTART PRN ALBUTEROL. GOUT - CHRONIC - RESUME ALLOPURINOL. DVT PROPHYLAXIS - SCD'S AND LOVENOX GI PROPHYLAXIS WITH PEPCID. Problems: Admission Diagnosis PYELONEPHRITIS FEVER HYPERTENSION ATRIAL FIBRILLATION TOBACCOISM HYPONATREMIA HYPERBILIRUBINEMIA COPD GOUT Clinical Quality Measures DVT/VTE Risk/Contraindication: Risk Factor Score Per Nursin RFS Level Per Nursing on Admit: 4+=Very High KEHINDE NICOLAS MD Jul 16, 2017 09:21
[2017-07-16] MEDS ORDERED: RT-ALBUTEROL SULF 2.5 MG/3 ML PRE-MIX VIAL INH PRN (09:30)
[2017-07-16] MEDS: ALLOPURINOL 100 MG (ZYLOPRIM) TAB PO SCH (10:12)
[2017-07-16] MEDS: ENOXAPARIN 40 MG/0.4 ML (LOVENOX) SYR SC SCH (10:12)
[2017-07-16] MEDS: meTOprolol TARTRATE 25 MG (LOPRESSOR) TABLET PO SCH (10:12)
[2017-07-16] MEDS: lisINopril 5 MG (PRINIVIL) TABLET PO SCH (10:12)
[2017-07-16] MEDS ORDERED: IOHEXOL 350 MG/ML 150 ML (OMNIPAQUE 350) VIAL IV ONE (13:15)
[2017-07-16] MEDS ORDERED: NS 100 ML (IVPB) BAG IV ONE (13:15)
[2017-07-16] MEDS ORDERED: LEVOFLOXACIN 500 MG/100 ML IV 100 ML IV NR (15:45)
[2017-07-16] MEDS ORDERED: KETOROLAC 15 MG/ML VIAL IVP NR (15:45)
[2017-07-16] MEDS: LACTOBACILLUS Acidoph/Bulgar (LACTINEX/FLORANEX) TAB PO SCH (15:56)
--- NOTE | 2017-07-16 15:57 | Diagnostic Imaging Report ---
PROCEDURE: CT angiography of the chest with contrast. TECHNIQUE: Multiple contiguous axial images were obtained through the chest after uneventful bolus administration of intravenous contrast. Reconstructed CTA MIP acquisitions were also performed. INDICATION: Shortness of breath. Elevated d-dimer. 125 mL of Omnipaque 350 is administered intravenously. FINDINGS: The pulmonary arteries are well opacified with no filling defects to suggest pulmonary embolism. The thoracic aorta is normal in caliber. No dissection or aneurysm. The heart size is normal. No pericardial or pleural effusion. There is a 1.2 cm mildly enlarged lymph node in the right hilum. No significant lymphadenopathy in the mediastinum or left hilum. No significant lymphadenopathy in the axilla. The lungs demonstrate minimal areas of consolidation in the bases favored to be atelectasis. A 7 mm pulmonary nodule in the right lung base, axial image 128 is seen, indeterminate. There is heterogenous enhancement in the upper pole of the right kidney probably related to pyelonephritis. Diffuse hepatic steatosis is seen. The osseous structures demonstrate mild degenerative changes in the thoracic spine. IMPRESSION: 1. No PE or aortic dissection. 2. Findings in the upper pole of the right kidney is probably secondary to pyelonephritis. Followup ultrasound of the kidneys in 6 weeks after treatment is recommended to ensure no residual mass. 3. Hepatic steatosis. 4. A 7 mm pulmonary nodule in the right lung base, indeterminate. Six months followup low dose CT chest without contrast is recommended to ensure no adverse development. Dictated by: Dictated on workstation # [id number]
[2017-07-16] MEDS: cefTRIAXone 1 GM/NS 50 ML IVPB IV SCH ×2 (17:23)
[2017-07-16] MEDS: KETOROLAC 30 MG/ML VIAL IV PRN (21:06)
[2017-07-17] VITALS (7 sets, daily range): BP systolic 112–136; BP diastolic 57–79
[2017-07-17] MEDS: ACETAMINOPHEN 500 MG TAB (TYLENOL) PO PRN ×4 (01:34→18:26)
[2017-07-17] MEDS: RT-ALBUTEROL/IPRATROPIUM 3 ML (DUONEB) VIAL INH SCH ×6 (02:00→22:12)
[2017-07-17] MEDS: KETOROLAC 30 MG/ML VIAL IV PRN (03:58)
[2017-07-17 05:43] LABS: MEAN PLATELET VOLUME 10.8 FL (7.4-10.4); RED BLOOD COUNT 3.47 10^6/uL (4.35-5.85); RED CELL DISTRIBUTION WIDTH 12.6 % (10.0-14.5)
[2017-07-17] MEDS: NS IV 1000 ML 1,000 ML IV SCH ×2 (05:58→15:05)
[2017-07-17] MEDS: LACTOBACILLUS Acidoph/Bulgar (LACTINEX/FLORANEX) TAB PO SCH ×3 (06:09→15:05)
[2017-07-17] MEDS: CATHETER FLUSH 10 ML SYR IV SCH ×3 (06:09→23:32)
[2017-07-17 06:10] LABS: ALANINE AMINOTRANSFERASE 31 U/L (0-55); ALBUMIN 3.1 GM/DL (3.2-4.5); ANION GAP 10 MMOL/L (5-14); ASPARTATE AMINO TRANSFERASE 35 U/L (5-34); BILIRUBIN,TOTAL 0.8 MG/DL (0.1-1.0); BLOOD UREA NITROGEN 12 MG/DL (7-18); BUN/CREATININE RATIO 13; CALCIUM 8.2 MG/DL (8.5-10.1); CARBON DIOXIDE 20 MMOL/L (21-32); CHLORIDE 104 MMOL/L (98-107); CREATININE SERUM 0.91 MG/DL (0.60-1.30); GFR ESTIMATED > 60; GLUCOSE 114 MG/DL (70-105); POTASSIUM 3.6 MMOL/L (3.6-5.0); SODIUM 134 MMOL/L (135-145); TOTAL PROTEIN 5.7 GM/DL (6.4-8.2)
[2017-07-17] MEDS: lisINopril 5 MG (PRINIVIL) TABLET PO SCH (08:16)
[2017-07-17] MEDS: meTOprolol TARTRATE 25 MG (LOPRESSOR) TABLET PO SCH (08:16)
[2017-07-17] MEDS: ALLOPURINOL 100 MG (ZYLOPRIM) TAB PO SCH (08:16)
[2017-07-17] MEDS: ENOXAPARIN 40 MG/0.4 ML (LOVENOX) SYR SC SCH (08:16)
--- NOTE | 2017-07-17 09:41 | Progress Note (SOAP) ---
Subjective Date Seen by Provider: Jul 17, 2017 Time Seen by Provider: 09:15 Subjective/Events-last exam PT STATES THAT HE IS FEELING BETTER TODAY - HE STATES THAT HE IS STILL FATIGUED , HE IS WHEEZING AND OVERALL FEELING WEAK, BUT HE HAS NOTICED THAT HIS BACK PAIN AND OVERALL MALAISE IS BETTER. Review of Systems General: Fatigue, Malaise (IMPROVING) Pulmonary: Dyspnea, No Cough Cardiovascular: No: Chest Pain, Palpitations, Edema Gastrointestinal: No: Nausea, Abdominal Pain, Constipation Genitourinary: No Dysuria, Frequency Musculoskeletal: back pain (IMPROVED) Neurological: Weakness, No: Confusion Objective Exam Vital Signs Date Time Temp Pulse Resp B/P (MAP) Pulse Ox O2 Delivery O2 Flow Rate FiO2 07/17/17 08:35 98.5 93 20 92 Room Air 07/17/17 08:00 97.7 82 20 112/66 (81) 95 Room Air 07/17/17 04:28 97.0 07/17/17 04:28 97.0 07/17/17 03:58 100.5 07/17/17 03:56 100.5 95 22 121/64 (83) 94 Nasal Cannula 2.00 07/17/17 02:04 99.8 07/17/17 01:34 100.5 07/17/17 01:10 103 96 07/17/17 01:00 101 07/17/17 00:00 99.1 95 24 136/79 (98) 94 Nasal Cannula 2.00 07/16/17 22:55 98.4 07/16/17 22:22 93 Nasal Cannula 2.00 07/16/17 21:06 101.0 07/16/17 19:49 98.7 90 22 110/71 (84) 94 Nasal Cannula 2.00 07/16/17 19:40 Nasal Cannula 3.00 07/16/17 19:00 108 07/16/17 18:25 93 Nasal Cannula 2.00 07/16/17 17:00 100.0 07/16/17 16:24 102.1 07/16/17 15:56 102.4 07/16/17 15:30 102.4 99 22 138/83 (101) 93 Nasal Cannula 2.00 07/16/17 14:37 93 Nasal Cannula 3.00 07/16/17 12:00 96.5 90 20 127/61 (83) 93 Nasal Cannula 2.00 07/16/17 10:38 92 Nasal Cannula 3.00 I & O 07/17/17 07:00 Intake Total 6877 ml Balance 6877 ml Capillary Refill : Less Than 3 SecondsLess Than 3 Seconds General Appearance: No Apparent Distress, WD/WN HEENT: PERRL/EOMI, Pharynx Normal Neck: Full Range of Motion, Supple Respiratory: Chest Non Tender, Decreased Breath Sounds, Wheezing Cardiovascular: Regular Rate, Rhythm Gastrointestinal: normal bowel sounds, non tender, soft Extremity: Normal Capillary Refill, No Pedal Edema Neurologic/Psychiatric: Alert, Oriented x3, No Motor/Sensory Deficits, Normal Mood/Affect, 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 Norm as Tested Skin: Warm/Dry Lymphatic: No Adenopathy Results Lab Laboratory Tests 07/16/17 16:20: Lactic Acid Level 1.10 07/17/17 05:00: White Blood Count 11.0, Red Blood Count 3.47L, Hemoglobin 12.0L, Hematocrit 35L , Mean Corpuscular Volume 99, Mean Corpuscular Hemoglobin 35H, Mean Corpuscular Hemoglobin Concent 35, Red Cell Distribution Width 12.6, Platelet Count 106L, Mean Platelet Volume 10.8H, Sodium Level 134L, Potassium Level 3.6, Chloride Level 104, Carbon Dioxide Level 20L, Anion Gap 10, Blood Urea Nitrogen 12, Creatinine 0.91, Estimat Glomerular Filtration Rate > 60, BUN/Creatinine Ratio 13, Glucose Level 114H, Calcium Level 8.2L, Total Bilirubin 0.8, Aspartate Amino Transf (AST/SGOT) 35H, Alanine Aminotransferase (ALT/SGPT) 31, Alkaline Phosphatase 64, Total Protein 5.7L, Albumin 3.1L Microbiology 07/15/17 Blood Culture - Preliminary, Resulted No growth 07/15/17 Influenza Types A,B Antigen (NADYA) - Final, Complete 07/15/17 Urine Culture - Preliminary, Resulted Escherichia Coli Assessment/Plan Assessment/Plan Assess & Plan/Chief Complaint PYELONEPHRITIS WITH ECOLI FEVER HYPERTENSION ATRIAL FIBRILLATION TOBACCOISM HYPONATREMIA HYPERBILIRUBINEMIA COPD GOUT PYELONEPHRITIS WITH ECOLI - PT ON IV ANTIBIOTIC - ROCEPHIN - CONTINUE WITH TREATMENT - CULTURE REPORT SHOWS STONE-SENSITIVITY - WILL CONTINUE WITH ROCEPHIN, PT SPIKED ANOTHER FEVER LAST NIGHT AND WAS GIVEN A ONE TIME DOSE OF LEVAQUIN - I WILL CONTINUE WITH THE ROCEPHIN, WAIT ON BLOOD CULTURES. FEVER - OVERALL IMPROVED -BUT PT SPIKED A TEMPERATURE LAST NIGHT AND WE WILL CONTINUE TO WAIT ON BLOOD CULTURE REPORT - THUS FAR HIS BLOOD CULTURE IS NEGATIVE. HYPERTENSION - STABLE - CONTINUE WITH HOME MEDICATION. ATRIAL FIBRILLATION - STABLE - MONITOR TOBACCOISM - CHRONIC - SUPPORTIVE CARE - HE WAS OFFERED WELLBUTRIN TODAY -BUT HE REFUSED. I TALKED TO JUSTUS ABOUT THE SMOKING CESSATION CLASS OFFERED AT THE HOSPITAL, BUT HE STATED "LETS TAKE CARE OF ONE THING AT A TIME" AND WAS NOT INTERESTED IN BEING SET UP WITH THE CLASS OR STARTING ON WELLBUTRIN. WHEEZING/COPD SYMPTOMS - WILL START ON ADVAIR, CONTINUE WITH BREATHING TREATMENTS, MONITOR BLOOD PRESSURE. HYPONATREMIA - RESOLVED - DECREASE RATE OF IV FLUIDS - CONTINUE WITH NORMAL SALINE AND MONITOR CMP. 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 GOUT - CHRONIC - RESUMED ALLOPURINOL. DVT PROPHYLAXIS - SCD'S AND LOVENOX GI PROPHYLAXIS WITH PEPCID. Clinical Quality Measures DVT/VTE Risk/Contraindication: Risk Factor Score Per Nursin RFS Level Per Nursing on Admit: 4+=Very High KEHINDE MADSEN MD Jul 17, 2017 09:41
[2017-07-17] MEDS: RT-ADVAIR HFA 115/21 MCG PER PUFF IH SCH ×2 (14:30→18:52)
[2017-07-17] MEDS ORDERED: SULF1TAB35 PO (16:34)
[2017-07-17] MEDS ORDERED: FLUT12AE4 IH (16:34)
[2017-07-17] MEDS: cefTRIAXone 1 GM/NS 50 ML IVPB IV SCH ×2 (18:21)
[2017-07-18] VITALS: BP 157/79
[2017-07-18] MEDS: KETOROLAC 30 MG/ML VIAL IV PRN ×2 (00:31→08:01)
[2017-07-18] MEDS: RT-ALBUTEROL/IPRATROPIUM 3 ML (DUONEB) VIAL INH SCH ×3 (03:28→11:07)
[2017-07-18 04:00] VITALS: BP 142/85
[2017-07-18] MEDS: LACTOBACILLUS Acidoph/Bulgar (LACTINEX/FLORANEX) TAB PO SCH ×2 (05:21→11:24)
[2017-07-18] MEDS: NS IV 1000 ML 1,000 ML IV SCH (05:21)
[2017-07-18] MEDS: CATHETER FLUSH 10 ML SYR IV SCH (06:08)
[2017-07-18 07:50] VITALS: BP 155/82
[2017-07-18] MEDS: lisINopril 5 MG (PRINIVIL) TABLET PO SCH (08:01)
[2017-07-18] MEDS: ALLOPURINOL 100 MG (ZYLOPRIM) TAB PO SCH (08:01)
[2017-07-18] MEDS: meTOprolol TARTRATE 25 MG (LOPRESSOR) TABLET PO SCH (08:01)
[2017-07-18] MEDS: ENOXAPARIN 40 MG/0.4 ML (LOVENOX) SYR SC SCH (08:02)
[2017-07-18] MEDS: RT-ADVAIR HFA 115/21 MCG PER PUFF IH SCH (11:07)
[2017-07-18 11:40] VITALS: BP 159/67
--- NOTE | 2017-07-18 12:14 | Progress Note-Hospitalist ---
Standard Progress Note Progress Notes/Assess & Plan Date Seen 07/18/17 Time Seen by Provider: 12:11 Assess & Plan/Chief Complaint The patient reports that he is feeling much better. His maximum temperature in the last 24 hours was 100.9 at midnight. His white blood count has fallen from 25,002 21,900-11,000 today. Creatinine is 0.91. His E coli is widely sensitive and will allow for discharge and completing his antibiotics as an outpatient. Physical exam: Lungs are clear to auscultation. CV is regular without murmur. Abdomen is obese but nontender. There is no CVA tenderness. Impression: Bilateral pyelonephritis Plan: discharge with one week of outpatient antibiotics. Labs Laboratory Tests 07/17/17 05:00 ASHELY BUSCH MD Jul 18, 2017 12:14
--- NOTE | 2017-07-18 12:15 | Discharge Instructions ---
Discharge Instructions Patient Instructions Patient Instructions: Outpatient medications as prescribed by Dr. Nicolas. Lots of liquids. Resume activities as tolerated Return to The Hospital For: Recurrence of fever and chills. Activity & Diet Discharge Diet: No Restrictions Activity as Tolerated: Yes ASHELY BUSCH MD Jul 18, 2017 12:15
== END 2017-07-18 13:20 | disposition home or self-care (01) | DRG 690 ==
LOC: EDUNIT# 16:54 → ER 16:55 → 4TH 20:30 → UNDOADMIN 20:30
PROVIDERS: ADMIT Family Medicine; ATTEND Family Medicine
DX: N10 Acute pyelonephritis (principal); B96.20 Unspecified Escherichia coli [E. coli] as the cause of diseases classified elsewhere; J44.0 Chronic obstructive pulmonary disease with (acute) lower respiratory infection; J20.9 Acute bronchitis, unspecified; I10 Essential (primary) hypertension; I48.91 Unspecified atrial fibrillation; F17.210 Nicotine dependence, cigarettes, uncomplicated; G47.30 Sleep apnea, unspecified; E87.1 Hypo-osmolality and hyponatremia; E80.6 Other disorders of bilirubin metabolism; M10.9 Gout, unspecified
CPT/HCPCS: 36415; 71010; 71275; 74177; 80053; 81000; 83605; 84484; 85007; 85025; 85027; 85379; 85610; 85730; 87040; 87088; 87186; 87324; 87449; 87804; 93005; 94640; 94760; 96361; 96374

== ENCOUNTER → 2017-07-24 | Outpatient (CLI) | payer BC ==
[~2017-07-24] MED LIST changes: +ALBU2.5V4 NEB; +ASCO-341 PO; +FLUT12AE4 IH; +LISI2.5T PO; +METO-333 PO; +POTA20TA15 PO; +RT-ALBUINH INH; +SULF1TAB35 PO
--- NOTE | 2017-07-24 08:43 | Diagnostic Imaging Report ---
PA and lateral views of the chest Indication: Cough. Findings: The lungs are clear. The heart size is normal. There is no effusion or pneumothorax The mediastinum and lesly appear unremarkable. Old rib fractures in the posterior lateral mid the right ribs seen. Impression: No acute process. Dictated by: Dictated on workstation # [id number]
== END ==
LOC: RAD 08:14
PROVIDERS: ATTEND Nurse Practitioner Family
DX: R05 Cough (principal); R06.2 Wheezing
CPT/HCPCS: 71020

== ENCOUNTER 2019-08-12 20:11 | Emergency (ER) | payer BC ==
[~2019-08-12] VITALS: Ht 180 cm; Wt 93.0 kg
[~2019-08-12 20:11] MED LIST changes: -IPRA3AMP INH; +IPRA3AMP31 INH
[2019-08-12] MEDS ORDERED: methylPREDNISolone 125 MG (Solu-MEDROL) VIAL IV STA (20:21)
[2019-08-12] MEDS ORDERED: diphenhydrAMINE 50 MG/ML INJ (BENADRYL) IV STA (20:21)
[2019-08-12] MEDS ORDERED: FAMOTIDINE 20MG/2ML IV (PEPCID) IV STA (20:21)
--- NOTE | 2019-08-12 20:24 | ED EENT ---
History of Present Illness General Chief Complaint: Oral/Throat Problems Stated Complaint: TONGUE SWELLING Nursing Triage Note: Patient reports his tongue starting to swell at 1600. 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 NO SWELLING ANYWHERE ELSE NO RASH OR ITCHING ANYWHERE NO HISTORY OF SIMILAR PT HAS BEEN ON SAME DOSE OF LISINOPRIL FOR YEARS PT WAS TREATED FOR PNEUMONIA A WEEK AGO, WHILE IN [place]. WAS GIVEN A SHOT OF ANTIBIOTICS, A SHOT OF STEROIDS, AND RX FOR LEVAQUIN 750 MG, AND STEROIDS. 08/05/19. PT STATES THOSE SYMPTOMS ARE MUCH IMPROVED. NO OTHER MEDICATION CHANGES NO NEW FOODS, ETC. TOOK 50 MG BENADRYL AT 1900--NO IMPROVEMENT PCP: DR MADSEN Allergies and Home Medications Allergies Coded Allergies: NATALY Inhibitors (Verified Allergy, Unknown, 08/12/19) angioedema Home Medications Albuterol Sulfate 1 Puff Puff, 2 PUFF INH Q6H PRN for SHORTNESS OF BREATH, (Re ported) Albuterol Sulfate 2.5 Mg/3 Ml Vial.neb, 2.5 MG NEB QID PRN for SHORTNESS OF BREATH, (Reported) Allopurinol 100 Mg Tablet, 100 MG PO DAIILY, (Reported) Ascorbic Acid/Multivit-Min 1,000 Mg Effpowdpkt, 1,000 MG PO DAILY, (Reported) Famotidine 40 Mg Tablet, 40 MG PO DAILY Prescribed by: DIDI NICHOLAS on 08/12/192155 Fluticasone/Salmeterol 12 Gm Hfa.aer.ad, 2 PUFF IH BID@ Prescribed by: ALEXANDRU TURNER on 07/17/17 1634 Furosemide 40 Mg Tablet, 40 MG PO DAILY, (Reported) Lisinopril 2.5 Mg Tablet, 2.5 MG PO DAILY, (Reported) Metoprolol Tartrate 25 Mg Tablet, 25 MG PO DAILY, (Reported) Potassium Chloride 20 Meq Tab.er.prt, 20 MEQ PO DAILY, (Reported) Prednisone 20 Mg Tab, 40 MG PO DAILY Prescribed by: DIDI NICHOLAS on 08/12/192155 Sulfamethoxazole/Trimethoprim 1 Each Tablet, 1 EACH PO BID Prescribed by: ALEXANDRU TURNER on 07/17/17 1634 Patient Home Medication List Home Medication List Reviewed: Yes Review of Systems Review of Systems Constitutional: no symptoms reported; No chills, No diaphoresis, No dizziness, No fever, No malaise Eyes: No Symptoms Reported Ears: No Symptoms Reported Nose: no symptoms reported Mouth: see HPI Throat: no symptoms reported; denies neck stiffness, denies hoarse, denies aphonia, denies painful swallowing, denies difficulty with fluids Respiratory: no symptoms reported; No cough, No short of breath, No wheezing Cardiovascular: no symptoms reported Gastrointestinal: no symptoms reported Musculoskeletal: no symptoms reported Skin: no symptoms reported; No pruritus, No rash Neurological: No Symptoms Reported Hematologic/Lymphatic: No Symptoms Reported Immunological/Allergic: no symptoms reported Past Tvadtsu-Jdkcwn-Qrwjfc Hx Past Med/Social Hx: Reviewed and Corrections made Patient Social History Alcohol Use: Regular Use (DRINKS BOURBON DAILY) Number of Drinks Today: BB Alcohol Beverage of Choice: [place] Recreational Drug Use: No Smoking Status: Current Everyday Smoker (1 PPD) Type Used: Cigarettes (1 PPD) 2nd Hand Smoke Exposure: No Recent Foreign Travel: No Contact w/Someone Who Travel: No Recent Infectious Disease Expo: No Recent Hopitalizations: No Immunizations Up To Date Tetanus Booster (TDap): Less than 5yrs Date of Pneumonia Vaccine: May 25, 2015 Date of Influenza Vaccine: May 25, 2015 Seasonal Allergies Seasonal Allergies: No Past Medical History Surgeries: Yes (CARDIAC ABLATION; ROTATOR CUFF REPAIR ) Cardiac, Orthopedic Respiratory: Yes Pneumonia, Sleep Apnea, COPD Currently Using CPAP: No (DOESN'T WEAR) Cardiac: Yes (CARDIAC ABLATION) Atrial Fibrillation, Hypertension Neurological: No Reproductive Disorders: No Sexually Transmitted Disease: No HIV/AIDS: No Genitourinary: No Gastrointestinal: No Musculoskeletal: Yes (ROTATOR CUFF SURGERY LAST YEAR) Gout Endocrine: No HEENT: No Loss of Vision: Denies Cancer: No Psychosocial: No Integumentary: No Blood Disorders: No Adverse Reaction/Blood Tranf: No Family Medical History Cardiovascular disease G8 BROTHER Hypertension G8 BROTHER Heart Disease, Diabetes, Hypertension Physical Exam Vital Signs Vital Signs - First Documented 08/12/19 20:17 Temp 36.8 Pulse 84 Resp 18 B/P (MAP) 138/79 (98) Pulse Ox 98 Height, Weight, BMI Height: 5'10.00" Weight: 211lbs. 3.0oz. 95.333659rw; 28.00 BMI Method:Stated General Appearance: WD/WN, no apparent distress, other (STRONG ODOR OF CIGARETTES, AND ALCOHOL. ) Eyes: bilateral eye normal inspection, bilateral eye PERRL, bilateral eye abnormal EOM Nose: normal inspection Mouth/Throat: No excessive drooling, No mandibular swelling; tongue swollen, voice changes (VOICE SLIGHTLY MUFFLED), other (MODERATE SWELLING TO ENTIRE TONGUE. DOES NOT TOUCH ROOF OF MOUTH OR EXTEND BEYOND TEETH, BUT UNABLE TO VISUALIZE POSTERIOR PHARYNX OR UVULA. PT ABLE TO HANDLE SECRETIONS/ NO DROOLING. 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 tested, no motor/sensory deficits, alert, normal mood/affect, oriented x 3 Skin: normal color, warm/dry; No rash Progress/Results/Core Measures Results/Orders My Orders Orders - DIDI NICHOLAS DO Ed Iv/Invasive Line Start (08/12/19 20:21) Monitor-Rhythm Ecg Trace Only (08/12/19 20:21) Diphenhydramine Injection (Benadryl Inje (08/12/19 20:21) Methylprednisolone Sod Succ (Solu-Medrol (08/12/19 20:21) Famotidine Injection (Pepcid Injection) (08/12/19 20:21) Epinephrine 1 Mg Injection (Adrenalin I (08/12/19 20:30) Epinephrine 1 Mg Injection (Adrenalin I (08/12/19 21:15) Methylprednisolone Sod Succ (Solu-Medrol (08/12/19 21:15) Diphenhydramine Injection (Benadryl Inje (08/12/19 21:15) Famotidine Injection (Pepcid Injection) (08/12/19 21:15) Medications Given in ED Current Medications Medications Dose Ordered Sig/Sourav Route Start Time Stop Time Status Last Admin Dose Admin Diphenhydramine HCl 50 mg ONCE ONCE IVP 08/12/19 21:15 08/12/19 21:16 DC 08/12/19 21:37 50 MG Epinephrine HCl 0.3 mg ONCE ONCE IM 08/12/19 20:30 08/12/19 20:31 DC 08/12/19 20:44 0.3 MG Famotidine 40 mg ONCE ONCE IVP 08/12/19 21:15 08/12/19 21:16 DC 08/12/19 21:37 40 MG Vital Signs/I&O 08/12/19 08/12/19 20:17 22:13 Temp 36.8 36.8 Pulse 84 84 Resp 18 18 B/P (MAP) 138/79 (98) 138/79 (98) Pulse Ox 98 98 Blood Pressure Mean: 98 Progress Progress Note : Progress Note GIVEN EPINEPHRINE, BENADRYL, SOLU-MEDROL AND PEPCID WITH IMPROVEMENT IN SYMPTOMS--TONGUE SIZE APPEARS TO BE DECREASED BY HALF, AND NOW ABLE TO VIEW SOFT PALATE AND MOST OF UVULA, WHICH APPEAR NORMAL. PT ABLE TO SWALLOW WATER WITHOUT DIFFICULTY NO DETERIORATION IN PT'S CONDITION DURING ER STAY PT FEELS COMFORTABLE GOING HOME Departure Impression Primary Impression: ANGIOEDEMA OF TONGUE Additional Impression: NATALY INHIBITOR USE Disposition: HOME, SELF-CARE Condition: Improved Departure-Patient Inst. Referrals: KEHINDE MADSEN MD (PCP/Family) Primary Care Physician Patient Instructions: Angioedema (DC) Add. Discharge Instructions: STOP LISINOPRIL TAKE BENADRYL 50 MG EVERY 4 HOURS NEEDED LOTS OF CLEAR LIQUIDS FOLLOW UP WITH DR. MADSEN ON THURSDAY FOR FURTHER CARE, RETURN TO ER IF SYMPTOMS WORSEN All discharge instructions reviewed with patient and/or family. Voiced understanding. Scripts Famotidine (Pepcid) 40 Mg Tablet 40 MG PO DAILY, #10 TAB Prov: CRISTOPHERSUDHAA K DO 08/12/19 Prednisone (Prednisone) 20 Mg Tab 40 MG PO DAILY for 3 Days, #6 TAB Prov: CRISTOPHER,DIDI K DO 08/12/19 CRISTOPHERDIDI K DO Aug 12, 2019 20:24
[2019-08-12] MEDS ORDERED: EPINEPHrine INJECTION 1 MG/ML AMP IM ONE ×2 (20:30→21:15)
[2019-08-12] MEDS ORDERED: FAMOTIDINE 20MG/2ML IV (PEPCID) IVP ONE (21:15)
[2019-08-12] MEDS ORDERED: methylPREDNISolone 125 MG (Solu-MEDROL) VIAL IVP ONE (21:15)
[2019-08-12] MEDS ORDERED: diphenhydrAMINE 50 MG/ML INJ (BENADRYL) IVP ONE (21:15)
[2019-08-12] MEDS ORDERED: FAMO40TA72 PO (21:56)
[2019-08-12] MEDS ORDERED: PRD20T PO (21:56)
[2019-08-12 22:13] VITALS: BP 138/79
== END 2019-08-12 22:10 | disposition home or self-care (01) ==
LOC: EDUNIT# 20:11 → ER 20:12
DX: T78.3XXA Angioneurotic edema, initial encounter (principal); J44.9 Chronic obstructive pulmonary disease, unspecified; I10 Essential (primary) hypertension; I48.91 Unspecified atrial fibrillation; M10.9 Gout, unspecified; F17.210 Nicotine dependence, cigarettes, uncomplicated; Z79.51 Long term (current) use of inhaled steroids; Z88.8 Allergy status to other drugs, medicaments and biological substances; Z82.49 Family history of ischemic heart disease and other diseases of the circulatory system
CPT/HCPCS: 93041; 96372; 96374; 96375; 96376

== ENCOUNTER → 2021-09-19 | Outpatient (CLI) | payer MEDICARE, OTHER ==
[~2021-09-19] MED LIST changes: +FAMO40TA72 PO; -LISI-556 PO; -LISI2.5T PO; +LISI2.5T13 PO; +LISI5TAB20 PO; +POTA-179 PO; -POTA20TA15 PO; +PRD20T PO; +RT-ALBUTEROL SULF 2.5 MG/3 ML PRE-MIX VIAL INH ONE; -SULF1TAB35 PO; +SULF1TAB38 PO
--- NOTE | 2021-09-19 10:35 | Diagnostic Imaging Report ---
PROCEDURE: CT chest without contrast. TECHNIQUE: Multiple contiguous axial images were obtained through the chest without the use of intravenous contrast. Auto Exposure Controls were utilized during the CT exam to meet ALARA standards for radiation dose reduction. INDICATION: 65-year-old male, COPD with cough, recent respiratory infection. CORRELATION: CTA chest 07/16/2017 FINDINGS: A few small, nonpathologic enlarged mediastinal and axillary lymph nodes are suggested with noncontrast study. The heart size is unremarkable. Scattered, mildly prominent coronary artery calcification. Thoracic aorta normal in contour. 9 x 7 x 9 mm well-circumscribed nodule deep lateral right costophrenic angle is slightly larger, previously 7 x 5 x 7 mm. There is no consolidating infiltrate. There is however a prominent bronchial wall thickening particularly in the bilateral lower lobe distribution. No significant effusion or pneumothorax. The visualized portions of the upper abdomen are unremarkable. Prominent bridging osteophytes through the thoracic spine. IMPRESSION: 1. Mild bronchial wall thickening particularly lower lobe distribution may reflect nonspecific bronchitis. No consolidating infiltrate. 2. Slight interval increase in size of a right lower lobe costophrenic angle nodule. This is overall very minimal growth considering nearly 4 year time frame but is more prominent. This is considered borderline in size for evaluation with PET imaging. Follow-up CT imaging approximate 6-12 months recommended. Dictated by: Dictated on workstation # [id number]
== END ==
LOC: RAD 08:00
PROVIDERS: ATTEND Family Medicine
DX: J44.1 Chronic obstructive pulmonary disease with (acute) exacerbation (principal); R91.1 Solitary pulmonary nodule
CPT/HCPCS: 71250; 94060; 94726; 94729

== ENCOUNTER → 2022-08-14 | Outpatient (CLI) | payer MEDICARE, OTHER ==
[~2022-08-14] MED LIST changes: +ALBU8.5H6 IH; +ALBU8.5H6 INH; -RT-ALBUINH IH; -RT-ALBUINH INH; -RT-ALBUTEROL SULF 2.5 MG/3 ML PRE-MIX VIAL INH ONE
--- NOTE | 2022-08-14 17:05 | Diagnostic Imaging Report ---
PROCEDURE: CT chest without contrast. TECHNIQUE: Multiple contiguous axial images were obtained through the chest without the use of intravenous contrast. Auto Exposure Controls were utilized during the CT exam to meet ALARA standards for radiation dose reduction. INDICATION: COPD, difficulty breathing, right lung nodule. COMPARISON with chest CT 09/19/2021. FINDINGS: A small nodule inferolateral right lower lobe measures today 9.1 x 7.1 mm, previously 9.4 x 7.0 mm. Minimal differences likely owing to slice localization. No significant change is felt present. It had no appreciable fatty component but it does likely have a flake of internal calcification. Circumscribed and well-marginated, its presence as far back as 2017. No spiculated new or suspicious lung mass. No axillary, hilar or mediastinal lymphadenopathy. The lungs are hyperexpanded in a symmetric fashion. No bronchiectasis, blebs, bullous disease or air cysts. No pneumonia or edema. There are old rib deformities, healed and chronic. No acute chest wall pathology. Upper abdomen showed no acute finding. IMPRESSION: Right lower lobe mass present for the past 5 years and showed minimal increased size from 2017, likely with a partial calcification consistent with benign behavior and requiring no further dedicated workup. COPD and coronary artery atherosclerotic calcifications, chronic. No pneumonia, failure or acute abnormality. Dictated by: Dictated on workstation # [id number]
== END ==
LOC: RAD 13:28
PROVIDERS: ATTEND Family Medicine
DX: R91.8 Other nonspecific abnormal finding of lung field (principal); J44.9 Chronic obstructive pulmonary disease, unspecified; I25.10 Atherosclerotic heart disease of native coronary artery without angina pectoris
CPT/HCPCS: 71250

== ENCOUNTER 2022-09-15 14:18 | Inpatient (IN) | payer MEDICARE, OTHER ==
[~2022-09-15] VITALS: Ht 180 cm; Wt 96.8 kg
[~2022-09-15 14:18] MED LIST changes: -ALB0.5V INH; -AMIO200T65 PO; -APIX5TAB PO; -DIGO250T3 PO; -DILT180C85 PO; -DILT240C91 PO; -PRD10T PO
[2022-09-15 14:54] LABS: BASOPHILS % (AUTO) 0 % (0-10); EOSINOPHILS % (AUTO) 0 % (0-10); HEMATOCRIT 46 % (40-54); HEMOGLOBIN 15.7 g/dL (13.3-17.7); LYMPHOCYTES # (AUTO) 1.3 10^3/uL (1.0-4.0); LYMPHOCYTES % (AUTO) 8 % (12-44); MEAN CORPUSCULAR HEMOGLOBIN 34 pg (25-34); MEAN CORPUSCULAR HGB CONC 34 g/dL (32-36); MEAN CORPUSCULAR VOLUME 100 fL (80-99); MEAN PLATELET VOLUME 9.8 fL (9.0-12.2); MONOCYTES # (AUTO) 0.9 10^3/uL (0.0-1.0); MONOCYTES % (AUTO) 6 % (0-12); NEUTROPHILS % (AUTO) 85 % (42-75); PLATELET COUNT 280 10^3/uL (130-400); WHITE BLOOD COUNT 15.2 10^3/uL (4.3-11.0)
[2022-09-15 15:04] LABS: ALBUMIN 4.5 GM/DL (3.2-4.5)
[2022-09-15] MEDS ORDERED: NS IV 1000 ML 1,000 ML IV STA (15:04)
[2022-09-15 15:05] LABS: CALCIUM 9.9 MG/DL (8.5-10.1)
[2022-09-15 15:07] LABS: TOTAL PROTEIN 7.2 GM/DL (6.4-8.2)
[2022-09-15 15:08] LABS: BILIRUBIN,TOTAL 1.5 MG/DL (0.1-1.0)
[2022-09-15 15:10] LABS: CREATININE SERUM 1.13 MG/DL (0.60-1.30)
--- NOTE | 2022-09-15 15:10 | Diagnostic Imaging Report ---
EXAMINATION: Chest 1 view HISTORY: Chest pain. COMPARISON: 07/15/2017. FINDINGS: Heart size and pulmonary vasculature are normal. The lungs are clear without consolidation, pleural effusion, or pneumothorax. The osseous structures are intact. IMPRESSION: 1. No acute radiographic abnormality in the chest. Dictated by: Dictated on workstation # [id number]
[2022-09-15 15:22] LABS: INR 1.1 (0.8-1.4); PROTHROMBIN TIME PATIENT 14.5 SEC (12.2-14.7)
--- NOTE | 2022-09-15 15:33 | ED Cardiac General ---
History of Present Illness General Chief Complaint: Cardiac/General Problems Stated Complaint: ELEVATED HEART RATE Nursing Triage Note: ARRIVED VIA AMB TO ROOM 07. STATES HE TO HAVE A ECHO BUT WAS SENT TO THE ER FOR A HIGH HEART RATE. Source: patient Exam Limitations: no limitations History of Present Illness Date Seen by Provider: Sep 15, 2022 Time Seen by Provider: 14:26 Initial Comments 66-year-old male with past medical history of a flutter status post ablation, recent diagnosis of A-fib now on Eliquis, diltiazem, and digoxin via Dr. Hughes coming in due to concerns for A-fib with RVR. He was in here earlier for an echo, they put him on the monitor, and referred him to the ER because his heart rate was elevated. He states that he does feel palpitations, and feels short of breath with it. Mild chest discomfort with it as well. He states he was diagnosed with A-fib [address] Hughes's office and he started him on all those new medications which she has been taking. Last had a flutter in 2015 which was fixed with the ablation, and as far as he knows he is never been in A- fib before. Has had an upper respiratory infection and is finishing some antibiotics and steroids at this time. Does have COPD as well and continues to smoke. Allergies and Home Medications Allergies Coded Allergies: NATALY Inhibitors (Verified Allergy, Unknown, 08/12/19) angioedema Patient Home Medication List Home Medication List Reviewed: Yes Albuterol Sulfate (Ventolin Hfa) 1 Puff Puff, 2 PUFF INH Q6H PRN for SHORTNESS OF BREATH, (Reported) Entered as Reported by: CARLO CHOE on 07/16/17752 Albuterol Sulfate (Albuterol Sulfate) 2.5 Mg/3 Ml Vial.neb, 2.5 MG NEB QID PRN for SHORTNESS OF BREATH, (Reported) Entered as Reported by: CARLO CHOE on 07/16/17752 Allopurinol (Allopurinol) 100 Mg Tablet, 100 MG PO DAIILY, (Reported) Entered as Reported by: CARLO CHOE on 07/16/17752 Ascorbic Acid/Multivit-Min (Emergen-C 1,000 mg Packet) 1,000 Mg Effpowdpkt, 1,000 MG PO DAILY, (Reported) Entered as Reported by: CARLO CHOE on 07/16/17 0906 Famotidine (Pepcid) 40 Mg Tablet, 40 MG PO DAILY Prescribed by: DIDI NICHOLAS on 08/12/192155 Fluticasone/Salmeterol (Advair Hfa 115-21 Mcg Inhaler) 12 Gm Hfa.aer.ad, 2 PUFF IH BID@ Prescribed by: ALEXANDRU STEWART on 07/17/17 163 Furosemide (Furosemide) 40 Mg Tablet, 40 MG PO DAILY, (Reported) Entered as Reported by: CARLO CHOE on 07/16/17 075 Lisinopril (Lisinopril) 2.5 Mg Tablet, 2.5 MG PO DAILY, (Reported) Entered as Reported by: CARLO CHOE on 07/16/17 075 Metoprolol Tartrate (Metoprolol Tartrate) 25 Mg Tablet, 25 MG PO DAILY, (Reported) Entered as Reported by: CARLO CHOE on 07/16/17 075 Potassium Chloride (Potassium Chloride) 20 Meq Tab.er.prt, 20 MEQ PO DAILY, (Reported) Entered as Reported by: CARLO CHOE on 07/16/17 075 Prednisone (Prednisone) 20 Mg Tab, 40 MG PO DAILY Prescribed by: DIDI NICHOLAS on 08/12/192155 Sulfamethoxazole/Trimethoprim (Bactrim Ds Tablet) 1 Each Tablet, 1 EACH PO BID Prescribed by: ALEXANDRU STEWART on 07/17/17 163 Review of Systems Review of Systems Constitutional: No fever EENTM: No Symptoms Reported Respiratory: See HPI Cardiovascular: See HPI Gastrointestinal: No Symptoms Reported Genitourinary: No Symptoms Reported Musculoskeletal: no symptoms reported Skin: no symptoms reported Psychiatric/Neurological: No Symptoms Reported Endocrine: No Symptoms Reported Hematologic/Lymphatic: No Symptoms Reported Past Csbvwvi-Qbntgu-Ksflwd Hx Patient Social History Tobacco Use?: Yes Smoking Status: Current Everyday Smoker Substance use?: No Alcohol Use?: Yes Alcohol Frequency: Couple times a week Immunizations Up To Date Tetanus Booster (TDap): Less than 5yrs Seasonal Allergies Seasonal Allergies: No Past Medical History Surgeries: Yes (CARDIAC ABLATION; ROTATOR CUFF REPAIR ) Cardiac, Orthopedic Respiratory: Yes Pneumonia, Sleep Apnea, COPD Currently Using CPAP: No (DOESN'T WEAR) Cardiac: Yes (CARDIAC ABLATION) Atrial Fibrillation, Hypertension Neurological: No Reproductive Disorders: No Sexually Transmitted Disease: No HIV/AIDS: No Genitourinary: No Gastrointestinal: No Musculoskeletal: Yes (ROTATOR CUFF SURGERY LAST YEAR) Gout Endocrine: No HEENT: No Loss of Vision: Denies Cancer: No Psychosocial: No Integumentary: No Blood Disorders: No Adverse Reaction/Blood Tranf: No Family Medical History Cardiovascular disease G8 BROTHER Hypertension G8 BROTHER Heart Disease, Diabetes, Hypertension Physical Exam Vital Signs Vital Signs - First Documented 09/15/22 14:40 Temp 36.3 Pulse 181 Resp 16 B/P (MAP) 111/79 (90) Pulse Ox 93 O2 Delivery Room Air Capillary Refill : Less Than 3 Seconds Height, Weight, BMI Height: 5'10.00" Weight: 211lbs. 3.0oz. 95.834658mw; 28.00 BMI Method:Stated General Appearance: No Apparent Distress, WD/WN HEENT: PERRL/EOMI, Normal ENT Inspection, Pharynx Normal Neck: Full Range of Motion, Normal Inspection, Non Tender, Supple Respiratory: Chest Non Tender, No Accessory Muscle Use, No Respiratory Distress, Wheezing Cardiovascular: No Edema, Normal Peripheral Pulses, Irregularly Irregular, Tachycardia Gastrointestinal: Normal Bowel Sounds, Non Tender, Soft; No Distended, No Guarding Extremity: Normal Capillary Refill, Normal Inspection, Normal Range of Motion, Non Tender, No Calf Tenderness, No Pedal Edema Neurologic/Psychiatric: Alert, No Motor/Sensory Deficits, Normal Mood/Affect Skin: Normal Color, Warm/Dry Lymphatic: No Adenopathy Progress/Results/Core Measures Results/Orders Lab Results Laboratory Tests Test 09/15/22 14:48 Range/Units White Blood Count 15.2 H 4.3-11.0 10^3/uL Red Blood Count 4.58 4.30-5.52 10^6/uL Hemoglobin 15.7 13.3-17.7 g/dL Hematocrit 46 40-54 % Mean Corpuscular Volume 100 H 80-99 fL Mean Corpuscular Hemoglobin 34 25-34 pg Mean Corpuscular Hemoglobin Concent 34 32-36 g/dL Red Cell Distribution Width 12.5 10.0-14.5 % Platelet Count 280 130-400 10^3/uL Mean Platelet Volume 9.8 9.0-12.2 fL Immature Granulocyte % (Auto) 1 % Neutrophils (%) (Auto) 85 H 42-75 % Lymphocytes (%) (Auto) 8 L 12-44 % Monocytes (%) (Auto) 6 0-12 % Eosinophils (%) (Auto) 0 0-10 % Basophils (%) (Auto) 0 0-10 % Neutrophils # (Auto) 13.0 H 1.8-7.8 10^3/uL Lymphocytes # (Auto) 1.3 1.0-4.0 10^3/uL Monocytes # (Auto) 0.9 0.0-1.0 10^3/uL Eosinophils # (Auto) 0.0 0.0-0.3 10^3/uL Basophils # (Auto) 0.0 0.0-0.1 10^3/uL Immature Granulocyte # (Auto) 0.1 0.0-0.1 10^3/uL Neutrophils % (Manual) 88 % Lymphocytes % (Manual) 6 % Monocytes % (Manual) 5 % Band Neutrophils 1 % Blood Morphology Comment NORMAL Prothrombin Time 14.5 12.2-14.7 SEC INR Comment 1.1 0.8-1.4 Activated Partial Thromboplast Time 37 H 24-35 SEC Sodium Level 139 135-145 MMOL/L Potassium Level 4.0 3.6-5.0 MMOL/L Chloride Level 92 L 98-107 MMOL/L Carbon Dioxide Level 33 H 21-32 MMOL/L Anion Gap 14 5-14 MMOL/L Blood Urea Nitrogen 19 H 7-18 MG/DL Creatinine 1.13 0.60-1.30 MG/DL Estimat Glomerular Filtration Rate 72 BUN/Creatinine Ratio 17 Glucose Level 145 H 70-105 MG/DL Calcium Level 9.9 8.5-10.1 MG/DL Corrected Calcium 9.5 8.5-10.1 MG/DL Magnesium Level 2.0 1.6-2.4 MG/DL Total Bilirubin 1.5 H 0.1-1.0 MG/DL Aspartate Amino Transf (AST/SGOT) 30 5-34 U/L Alanine Aminotransferase (ALT/SGPT) 72 H 0-55 U/L Alkaline Phosphatase 59 40-136 U/L Troponin I < 0.028 <0.028 NG/ML B-Type Natriuretic Peptide 123.2 H <100.0 PG/ML Total Protein 7.2 6.4-8.2 GM/DL Albumin 4.5 3.2-4.5 GM/DL Lipase 13 8-78 U/L My Orders Orders - GADIEL CELESTE MD Ekg Tracing (09/15/22 14:42) Cbc With Automated Diff (09/15/22 14:45) Magnesium (09/15/22 14:45) Chest 1 View, Ap/Pa Only (09/15/22 14:45) Ekg Tracing (09/15/22 14:45) Comprehensive Metabolic Panel (09/15/22 14:45) Protime With Inr (09/15/22 14:45) Partial Thromboplastin Time (09/15/22 14:45) O2 (09/15/22 14:45) Monitor-Rhythm Ecg Trace Only (09/15/22 14:45) Ed Iv/Invasive Line Start (09/15/22 14:45) Lipase (09/15/22 14:45) Bnp [place] (09/15/22 14:45) Troponin I [place] (09/15/22 14:45) Manual Differential (09/15/22 14:48) Ns (Ivpb) (Sodium C... W/Diltiazem Iv Fo (09/15/22 15:04) Diltiazem Injection (Cardizem Injection) (09/15/22 15:15) Ns Iv 1000 Ml (Sodium Chloride 0.9%) (09/15/22 15:04) Digoxin (09/15/22 15:47) Medications Given in ED Current Medications Medications Dose Ordered Sig/Sourav Route Start Time Stop Time Status Last Admin Dose Admin Diltiazem HCl 20 mg ONCE ONCE IVP 09/15/22 15:15 09/15/22 15:16 DC 09/15/22 15:16 20 MG Vital Signs/I&O 09/15/22 09/15/22 09/15/22 14:40 15:16 15:18 Temp 36.3 Pulse 181 174 174 Resp 16 B/P (MAP) 111/79 (90) 101/81 Pulse Ox 93 O2 Delivery Room Air Blood Pressure Mean: 88 Progress Progress Note : Progress Note 66-year-old male with above history coming in due to concern for being in A-fib with RVR. Heart rate 170s to 180s in A-fib on arrival with normal blood pressure. EKG with no acute ischemic changes, showing A-fib with RVR on my interpretation. An IV was placed and basic labs were obtained including cardiac biomarkers. Troponin negative, and labs unrevealing at this time. I suspect he is in RVR due to his respiratory infection he was discussing. He was started on a diltiazem drip. He is already anticoagulated. I discussed the case with Dr. Paiz for consultation. I contacted Dr. Nicolas for admission to the intensive care unit. I then contacted the animal treatment investigator for signout as well. Initial ECG Impression Date: Sep 15, 2022 Initial ECG Impression Time: 14:47 Initial ECG Rate: 177 Initial ECG Rhythm: A Fib/Flutter Comment Narrow QRS, borderline left axis deviation, no STEMI, PVCs Diagnostic Imaging Diagonstic Imaging: Xray (chest) Comments [facility] [place], [place] NAME: JUSTUS NORIEGA [facility] REC#: [id number] PT STATUS: REG ER : 1955 PHYSICIAN: GADIEL CELESTE MD ADMIT DATE: 09/15/22/ER Signed Date of Exam:09/15/22 CHEST 1 VIEW, AP/PA ONLY EXAMINATION: Chest 1 view HISTORY: Chest pain. COMPARISON: 07/15/2017. FINDINGS: Heart size and pulmonary vasculature are normal. The lungs are clear without consolidation, pleural effusion, or pneumothorax. The osseous structures are intact. IMPRESSION: 1. No acute radiographic abnormality in the chest. Dictated by: Dictated on workstation # [id number] Dict: 09/15/22 1508 Trans: 09/15/22 1520 [id number] Interpreted by: EVERETT TODD DO Electronically signed by: EVERETT TODD DO 09/15/22 1520 Departure Impression Primary Impression: Atrial fibrillation with RVR Disposition: ADMITTED INPATIENT Condition: Stable Admissions Decision to Admit Reason: Admit from ER (General) Decision to Admit/Date: Sep 15, 2022 Time/Decision to Admit Time: 15:40 Departure-Patient Inst. Referrals: KEHINDE NICOLAS MD (PCP/Family) Primary Care Physician GADIEL CELESTE MD Sep 15, 2022 15:33
[2022-09-15 15:44] LABS: BAND NEUTROPHILS 1 %; LYMPHOCYTES % (MANUAL) 6 %; MONOCYTES % (MANUAL) 5 %; NEUTROPHILS % (MANUAL) 88 %; RBC MORPH NORMAL
[2022-09-15 17:07] VITALS: BP 111/79
[2022-09-15] MEDS ORDERED: RT-ALBUTEROL SULF 2.5 MG/3 ML PRE-MIX VIAL INH PRN (17:15)
[2022-09-15] MEDS ORDERED: RT-IPRATROPIUM (ATROVENT) 0.5MG/2.5ML AMP IH PRN (17:15)
[2022-09-15] MEDS ORDERED: ACETAMINOPHEN 500 MG TAB (TYLENOL) PO PRN (17:30)
[2022-09-15] MEDS ORDERED: CATHETER FLUSH 10 ML SYR IVP PRN (17:30)
[2022-09-15] MEDS ORDERED: ONDANSETRON 4 MG/2 ML (SDV) Z0FRAN IV PRN (17:30)
--- NOTE | 2022-09-15 17:33 | Consultation-Cardiology ---
HPI-Cardiology Cardiology Consultation Date of Consultation 09/15/22 Date of Admission Time Seen by Provider: 17:29 Indication: Atrial fibrillation HPI 66 years old gentleman with history of atrial flutter ablation. Had a recent diagnosis of atrial fibrillation during visit with Dr. Hughes, he was started on Cardizem and digoxin. Started on Eliquis. Still tachycardic, patient came in for echocardiogram evaluation where he was sent to the emergency room. He has been complaining of dyspnea on exertion, generalized fatigue and loss of energy. No chest pain. No syncope or near syncopal episodes. Home Medications & Allergies Allergies: Coded Allergies: NATALY Inhibitors (Verified Allergy, Unknown, 08/12/19) angioedema Home Medication List Reviewed: Yes EEI-Crhywx-Cemodw Hx Patient Social History Marital Status: Employed/Student: employed Smoking Status: Current Everyday Smoker Type Used: Cigarettes 2nd Hand Smoke Exposure: No Recent Hopitalizations: No Have you traveled recently?: No Alcohol Use?: Yes Immunizations Up To Date Tetanus Booster (TDap): Less than 5yrs Date of Pneumonia Vaccine: May 25, 2015 Date of Influenza Vaccine: May 25, 2015 Past Medical History Discussed below Family Medical History Significant Family History: Heart Disease, Diabetes, Hypertension Family History: Cardiovascular disease G8 BROTHER Hypertension G8 BROTHER Review of Systems-General Review of Systems Constitutional: No fever; malaise EENTM: see HPI, no symptoms reported Respiratory: see HPI, dyspnea on exertion, short of breath Cardiovascular: see HPI; No chest pain, No edema, No Hx of Intervention, No palpitations, No syncope, No vascular heart diseas, No other Gastrointestinal: no symptoms reported, see HPI Genitourinary: no symptoms reported, see HPI Musculoskeletal: no symptoms reported Skin: no symptoms reported Psychiatric/Neurological: No Symptoms Reported Reviewed Test Results Reviewed Test Results Lab Laboratory Tests Test 09/15/22 14:48 Range/Units White Blood Count 15.2 H 4.3-11.0 10^3/uL Red Blood Count 4.58 4.30-5.52 10^6/uL Hemoglobin 15.7 13.3-17.7 g/dL Hematocrit 46 40-54 % Mean Corpuscular Volume 100 H 80-99 fL Mean Corpuscular Hemoglobin 34 25-34 pg Mean Corpuscular Hemoglobin Concent 34 32-36 g/dL Red Cell Distribution Width 12.5 10.0-14.5 % Platelet Count 280 130-400 10^3/uL Mean Platelet Volume 9.8 9.0-12.2 fL Immature Granulocyte % (Auto) 1 % Neutrophils (%) (Auto) 85 H 42-75 % Lymphocytes (%) (Auto) 8 L 12-44 % Monocytes (%) (Auto) 6 0-12 % Eosinophils (%) (Auto) 0 0-10 % Basophils (%) (Auto) 0 0-10 % Neutrophils # (Auto) 13.0 H 1.8-7.8 10^3/uL Lymphocytes # (Auto) 1.3 1.0-4.0 10^3/uL Monocytes # (Auto) 0.9 0.0-1.0 10^3/uL Eosinophils # (Auto) 0.0 0.0-0.3 10^3/uL Basophils # (Auto) 0.0 0.0-0.1 10^3/uL Immature Granulocyte # (Auto) 0.1 0.0-0.1 10^3/uL Neutrophils % (Manual) 88 % Lymphocytes % (Manual) 6 % Monocytes % (Manual) 5 % Band Neutrophils 1 % Blood Morphology Comment NORMAL Prothrombin Time 14.5 12.2-14.7 SEC INR Comment 1.1 0.8-1.4 Activated Partial Thromboplast Time 37 H 24-35 SEC Sodium Level 139 135-145 MMOL/L Potassium Level 4.0 3.6-5.0 MMOL/L Chloride Level 92 L 98-107 MMOL/L Carbon Dioxide Level 33 H 21-32 MMOL/L Anion Gap 14 5-14 MMOL/L Blood Urea Nitrogen 19 H 7-18 MG/DL Creatinine 1.13 0.60-1.30 MG/DL Estimat Glomerular Filtration Rate 72 BUN/Creatinine Ratio 17 Glucose Level 145 H 70-105 MG/DL Calcium Level 9.9 8.5-10.1 MG/DL Corrected Calcium 9.5 8.5-10.1 MG/DL Magnesium Level 2.0 1.6-2.4 MG/DL Total Bilirubin 1.5 H 0.1-1.0 MG/DL Aspartate Amino Transf (AST/SGOT) 30 5-34 U/L Alanine Aminotransferase (ALT/SGPT) 72 H 0-55 U/L Alkaline Phosphatase 59 40-136 U/L Troponin I < 0.028 <0.028 NG/ML B-Type Natriuretic Peptide 123.2 H <100.0 PG/ML Total Protein 7.2 6.4-8.2 GM/DL Albumin 4.5 3.2-4.5 GM/DL Lipase 13 8-78 U/L Digoxin Level 0.34 L 0.80-2.00 NG/ML Physical Exam Physical Exam Vital Signs Vital Signs - First Documented 09/15/22 09/15/22 09/15/22 14:40 16:45 17:07 Temp 36.3 Pulse 181 Resp 16 B/P (MAP) 111/79 (90) Pulse Ox 93 O2 Delivery Room Air O2 Flow Rate 3.00 FiO2 21 Capillary Refill : Less Than 3 Seconds Height, Weight, BMI Height: 5'10.00" Weight: 211lbs. 3.0oz. 95.232941nl; 28.08 BMI Method:Stated General Appearance: No Apparent Distress, WD/WN Eyes: Bilateral Eye Normal Inspection, Bilateral Eye PERRL, Bilateral Eye EOMI HEENT: PERRL/EOMI, Normal ENT Inspection, Pharynx Normal Neck: Full Range of Motion, Normal Inspection, Non Tender, Supple Respiratory: Chest Non Tender, No Accessory Muscle Use, No Respiratory Distress, Wheezing Cardiovascular: No Edema, Normal Peripheral Pulses, Irregularly Irregular, Tachycardia Gastrointestinal: Normal Bowel Sounds, Non Tender, Soft; No Distended, No Guarding Back: Normal Inspection, No CVA Tenderness, No Vertebral Tenderness Extremity: Normal Capillary Refill, Normal Inspection, Normal Range of Motion, Non Tender, No Calf Tenderness, No Pedal Edema Neurologic/Psychiatric: Alert, No Motor/Sensory Deficits, Normal Mood/Affect Skin: Normal Color, Warm/Dry Lymphatic: No Adenopathy A/P-Cardiology Admission Diagnosis Atrial fibrillation Atrial flutter COPD Shortness of breath Assessment/Plan Atrial fibrillation with rapid ventricular response Started on Cardizem, digoxin and Eliquis recently. Currently admitted to ICU and started on Cardizem drip, planning to proceed with DARSHANA with electrical cardioversion. History of atrial flutter, had ablation done by Dr. Padilla in May 2015. Congestive heart failure, history of nonischemic cardiomyopathy with ejection fraction 20% on DARSHANA in May 2015. Patient reported resolution of the heart failure after the atrial flutter ablation. Shortness of breath, worsening recently, probably secondary to underlying COPD and to the atrial fibrillation History of sleep apnea, CPAP was advised. Noncompliant. CT of the chest in August 2022 reported as right lower lobe mass for the past 5 years, minimal increase in size from 2017 Patient is scheduled to see 's case water. Hypertension, monitor blood pressure Hyperlipidemia, monitor lipids BJORN HEART MD Sep 15, 2022 17:33
[2022-09-15] MEDS ORDERED: dilTIAZem DRIP 125 MG/125 ML DRIP IV SCH (18:15)
[2022-09-15] MEDS ORDERED: FLU QUADRIvalent (6 months+) 60 mcg/0.5 ml 2022-23 (Fluzone) IM ONE (18:15)
[2022-09-15] MEDS: ESMOLOL DRIP PREMIX 250 ML IV SCH (18:24)
[2022-09-15] MEDS: dilTIAZem DRIP PRE-MIX 125 ML IV SCH (18:28)
--- NOTE | 2022-09-15 18:44 | Tele-ICU Progress Note ---
Progress Note Video assessment done , Hemodynamically stable Available charting reviewed, discussed with RN NO TELE-ICU CONSULT REQUESTED CONTINUE TO MONITOR PER USUAL TELE-ICU PROTOCOL No need for Tele-ICU interventions Plans as delineated by bedside physicians / consultants A fib - RVR Started on Cardizem, digoxin and Eliquis recently. Currently on Cardizem drip -- planning to proceed with DARSHANA with electrical cardioversion. Focused Exam Height, Weight, BMI Height: 5'10.00" Weight: 211lbs. 3.0oz. 95.816686fk; 28.08 BMI Method:Stated JONATHON CORTEZ MD Sep 15, 2022 18:44
[2022-09-15] MEDS: APIXABAN 5 MG (ELIQUIS) TABLET PO SCH (21:15)
[2022-09-15] MEDS: RT-ALBUTEROL SULF 2.5 MG/3 ML PRE-MIX VIAL INH SCH (21:34)
[2022-09-15] MEDS: RT-IPRATROPIUM (ATROVENT) 0.5MG/2.5ML AMP IH SCH (21:34)
[2022-09-15] MEDS: CATHETER FLUSH 10 ML SYR IVP SCH (22:20)
[2022-09-16] MEDS: ESMOLOL DRIP PREMIX 250 ML IV SCH ×3 (02:40→23:49)
[2022-09-16 03:58] LABS: BASOPHILS # (AUTO) 0.1 10^3/uL (0.0-0.1); BASOPHILS % (AUTO) 0 % (0-10); EOSINOPHILS # (AUTO) 0.1 10^3/uL (0.0-0.3); EOSINOPHILS % (AUTO) 1 % (0-10); HEMATOCRIT 42 % (40-54); HEMOGLOBIN 14.2 g/dL (13.3-17.7); LYMPHOCYTES # (AUTO) 3.3 10^3/uL (1.0-4.0); LYMPHOCYTES % (AUTO) 22 % (12-44); MEAN CORPUSCULAR HEMOGLOBIN 35 pg (25-34); MEAN CORPUSCULAR HGB CONC 34 g/dL (32-36); MEAN CORPUSCULAR VOLUME 102 fL (80-99); MEAN PLATELET VOLUME 9.9 fL (9.0-12.2); MONOCYTES # (AUTO) 1.7 10^3/uL (0.0-1.0); MONOCYTES % (AUTO) 11 % (0-12); NEUTROPHILS # (AUTO) 9.7 10^3/uL (1.8-7.8); NEUTROPHILS % (AUTO) 64 % (42-75); PLATELET COUNT 245 10^3/uL (130-400); WHITE BLOOD COUNT 15.1 10^3/uL (4.3-11.0)
[2022-09-16 04:10] LABS: ALBUMIN 3.9 GM/DL (3.2-4.5); CHLORIDE 99 MMOL/L (98-107); POTASSIUM 3.8 MMOL/L (3.6-5.0); SODIUM 139 MMOL/L (135-145)
[2022-09-16 04:11] LABS: CALCIUM 8.9 MG/DL (8.5-10.1)
[2022-09-16 04:13] LABS: GLUCOSE 103 MG/DL (70-105); TOTAL PROTEIN 6.2 GM/DL (6.4-8.2)
[2022-09-16 04:14] LABS: BILIRUBIN,TOTAL 1.1 MG/DL (0.1-1.0); CARBON DIOXIDE 29 MMOL/L (21-32)
[2022-09-16 04:16] LABS: ALKALINE PHOSPHATASE 48 U/L (40-136); CREATININE SERUM 1.06 MG/DL (0.60-1.30); GFR ESTIMATED 77; PHOSPHORUS 5.4 MG/DL (2.3-4.7)
[2022-09-16 04:17] LABS: BUN/CREATININE RATIO 22
[2022-09-16 04:19] LABS: ALANINE AMINOTRANSFERASE 55 U/L (0-55)
[2022-09-16 04:20] LABS: MAGNESIUM 2.1 MG/DL (1.6-2.4)
[2022-09-16] MEDS: dilTIAZem DRIP PRE-MIX 125 ML IV SCH (04:42)
[2022-09-16] MEDS ORDERED: NS IV 1000 ML 1,000 ML ONE (05:50)
[2022-09-16] MEDS ORDERED: NS IV 1000 ML 1,000 ML IV SCH (06:00)
[2022-09-16] MEDS: RT-IPRATROPIUM (ATROVENT) 0.5MG/2.5ML AMP IH SCH ×2 (06:03→22:18)
[2022-09-16] MEDS: RT-ALBUTEROL SULF 2.5 MG/3 ML PRE-MIX VIAL INH SCH ×2 (06:03→22:18)
[2022-09-16] MEDS: CATHETER FLUSH 10 ML SYR IVP SCH ×3 (06:24→21:24)
--- NOTE | 2022-09-16 07:28 | Cardiac Procedure Note-CS/ASA ---
Pre-Procedure Note Pre-Op Procedure Note Date of Available H&P: Sep 16, 2022 Date H&P Reviewed: Sep 16, 2022 Time H&P Reviewed: 07:28 History & Physical: H&P Reviewed, Patient Examed, No changes noted Pre-Operative Diagnosis: Atrial fibrillation Conscious Sedation Pre-Proced Time 07:28 ASA Score 3 For ASA 3 and 4: Consider anesthesia and medical clearance. Also, for patients with a history of failed moderate sedation consider anesthesia. Airway Lungs Heart ASA score ASA 1: a normal healthy patient ASA 2: a patient with a mild systemic disease (mid diabetes, controlled hypertension, obesity ASA 3: a patient with a severe systemic disease that limits activity (angina, COPD, prior Myocardial infarction) ASA 4: a patient with an incapacitating disease that is a constant threat to life (CHF, renal failure) ASA 5: a moribund patient not expected to survive 24 hrs. (ruptured aneurysm) ASA 6: a declared brain- patient whose organs are being harvested. For emergent operations, add the letter E after the classification Mallampati Classification Grade 3 Sedation Plan Analgesia, Amnesia, Plan communicated to team members, Discussed options with patient/fam, Discussed risks with patient/fam The patient is an appropriate candidate to undergo the planned procedure, sedation, and anesthesia. The patient immediately re-assessed prior to indication. BJORN HEART MD Sep 16, 2022 07:28
--- NOTE | 2022-09-16 07:28 | Cardiology Progress Note ---
Subjective Date Seen by Provider: Sep 16, 2022 Time Seen by Provider: 07:27 Subjective/Events-last exam Patient was seen at bedside, laying down comfortably, did not sleep last night. Review of Systems General: No Chills, No Night Sweats; Fatigue; No Malaise, No Appetite, No Other HEENT: No Head Aches, No Visual Changes, No Eye Pain, No Ear Pain, No Dysphasia, No Sinus Congestion, No Post Nasal Drip, No Sore Throat, No Other Pulmonary: No Dyspnea, No Cough, No Pleuritic Chest Pain, No Other Cardiovascular: No: Chest Pain, Palpitations, Orthopnea, Paroxysmal Noc. Dyspnea, Edema, Lt Headedness, Other Objective-Cardiology Exam Last Set of Vital Signs Vital Signs 09/15/22 09/16/22 09/16/22 09/16/22 17:07 04:00 06:15 06:45 Temp 36.2 Pulse 151 Resp 20 B/P (MAP) 109/81 (90) Pulse Ox 91 O2 Delivery Nasal Cannula O2 Flow Rate 5.00 FiO2 21 I&O Intake and Output 09/15/22 23:59 Intake Total 1500 ml Output Total 300 ml Balance 1200 ml Intake Oral 500 ml IV Total 1000 ml Output Urine Total 300 ml Daily Weight Change No General: Alert, Oriented X3, Cooperative HEENT: Atraumatic, PERRLA Neck: Supple, No JVD, No Thyromegaly Lungs: Normal Air Movement, Other (Bilateral rhonchi) Heart: Normal S1, Normal S2, No Murmurs, Other (Atrial fibrillation with rapid ventricular response) Abdomen: Normal Bowel Sounds, Soft, No Tenderness, No Hepatosplenomegaly, No Masses Extremities: No Clubbing, No Cyanosis, No Edema, Normal Pulses, No Tenderness/Swelling Skin: No Rashes, No Breakdown, No Significant Lesion Neuro: Normal Gait, Normal Speech, Strength at 5/5 X4 Ext, Normal Tone, Sensation Intact Psych/Mental Status: Mental Status NL, Mood NL Results Lab Laboratory Tests 09/15/22 14:48 09/16/22 03:50 A/P-Cardiology Admission Diagnosis Atrial fibrillation Atrial flutter COPD Shortness of breath Assessment/Plan Atrial fibrillation with rapid ventricular response Did not respond to Cardizem drip or esmolol drip Received digoxin Had episode of hypotension, responded to bolus of IV fluid Planning to proceed with DARSHANA and electrical cardioversion today. History of atrial flutter, had ablation done by Dr. Padilla in May 2015. Congestive heart failure, history of nonischemic cardiomyopathy with ejection f raction 20% on DARSHANA in May 2015. Patient reported resolution of the heart failure after the atrial flutter ablation. Shortness of breath, worsening recently, probably secondary to underlying COPD and to the atrial fibrillation History of sleep apnea, CPAP was advised. Noncompliant. CT of the chest in August 2022 reported as right lower lobe mass for the past 5 years, minimal increase in size from 2017 Patient is scheduled to see 's case water. Hypertension, monitor blood pressure Hyperlipidemia, monitor lipids BJORN HEART MD Sep 16, 2022 07:28
[2022-09-16] MEDS ORDERED: MIDAZOLAM 2 MG/2 ML (VERSED) VIAL ONE (07:32)
[2022-09-16] MEDS ORDERED: proPOfol 200 MG/20 ML (DIPRIVAN) VIAL IV ONE ×2 (07:32→11:37)
[2022-09-16] MEDS ORDERED: PROPOFOL INJECTION 0 ML IV ONE (07:32)
[2022-09-16] MEDS ORDERED: KETAMINE 50 MG/5 ML SYRINGE ONE (07:33)
[2022-09-16] MEDS ORDERED: LIDOCAINE 2% VISCOUS 15 ML UDC PO ONE ×2 (07:45→08:00)
[2022-09-16] MEDS ORDERED: AMIODARONE FOR BOLUS 150 MG in NS (IVPB) 100 ML IV ONE (08:00)
--- NOTE | 2022-09-16 08:17 | Anesthesia-General Post-Op ---
MAC Patient Condition Mental Status/LOC: Same as Preop Cardiovascular: Satisfactory Nausea/Vomiting: Absent Respiratory: Satisfactory Pain: Controlled Complications: Absent Post Op Complications Complications None Follow Up Care/Instructions Patient Instructions None needed. Anesthesiology Discharge Order Discharge Order Patient is doing well, no complaints, stable vital signs, no apparent adverse anesthesia problems. No complications reported per nursing. LUIS M WALL CRNA Sep 16, 2022 08:17
[2022-09-16] MEDS: DIGOXIN 0.25 MG (LANOXIN) TAB PO SCH ×2 (08:18→12:54)
[2022-09-16] MEDS: APIXABAN 5 MG (ELIQUIS) TABLET PO SCH ×2 (08:18→21:23)
--- NOTE | 2022-09-16 08:30 | Cardioversion ---
Cardioversion PROCEDURE PHYSICIAN: Bjorn Paiz DATE OF PROCEDURE: 09/16/22 DIRECT EXTERNAL ELECTRICAL CARDIOVERSION: Indications: Atrial Fibrillation with rapid ventricular rate Preoperative diagnoses: Atrial Fibrillation with rapid ventricular rate Postoperative diagnosis: Atrial fibrillation Anesthesia: By Anesthesia services Complications: None Specimen: None Contrast: 0 Flouroscopy: none Procedure Details: The patient was brought the photo lab technician after informed consent was taken, all the risks and complications were explained including the risk of stroke. Electrical cardioversion was carried out with anesthesia support with propofol. 200 joules of synchronized shock was delivered through external patches which promptly restored sinus rhythm. Patient returned to atrial fibrillation again within few minutes of the cardioversion Conclusions: DC cardioversion was successful in terminating atrial fibrillation, patient could not maintain sinus rhythm and went back to atrial fibrillation Patient will be loaded with amiodarone bolus and a drip and planning to attempt another cardioversion later today BJORN PAIZ MD Sep 16, 2022 08:30
--- NOTE | 2022-09-16 08:38 | History & Physical ---
History of Present Illness History of Present Illness Reason for visit/HPI Pt is a 66 y/o male who is known to me from clinic. He has hx of atrial flutter status post ablation, recent diagnosis of A-fib now on Eliquis, diltiazem, and digoxin via Dr. Carty as of 09/13/22. Pt presented to the hospital after having an ECHO which showed concerns for A-fib with RVR. He states that he does feel palpitations, and feels short of breath with it. Mild chest discomfort with it as well. He has COPD and continues to smoke daily. Date of Admission Sep 15, 2022 at 15:49 Date Seen by a Provider: Sep 16, 2022 Time Seen by a Provider: 08:35 Attending Physician Kehinde Nicolas MD Admitting Physician Admitting Physician: Kehinde Nicolas MD Attending Physician: Kehinde Nicolas MD Consult Allergies and Home Medications Allergies Coded Allergies: NATALY Inhibitors (Verified Allergy, Unknown, 08/12/19) angioedema Patient Home Medication List Home Medication List Reviewed: Yes Albuterol Sulfate (Ventolin Hfa) 1 Puff Puff, 2 PUFF INH Q6H PRN for SHORTNESS OF BREATH, (Reported) Entered as Reported by: CARLO CHOE on 07/16/17 0753 Last Action: Reviewed Albuterol Sulfate (Albuterol Sulfate) 2.5 Mg/0.5 Ml Vial.neb, 2.5 MG INH Q4H PRN for SHORTNESS OF BREATH, (Reported) Entered as Reported by: YAMILE KRUSE on 09/16/22 1136 Last Action: Reviewed Apixaban (Eliquis) 5 Mg Tablet, 5 MG PO BID, (Reported) Entered as Reported by: YAMILE KRUSE on 09/16/22 113 Last Action: Reviewed Ascorbic Acid/Multivit-Min (Emergen-C 1,000 mg Packet) 1,000 Mg Effpowdpkt, 1,000 MG PO DAILY, (Reported) Entered as Reported by: CARLO CHOE on 07/16/17 0906 Last Action: Reviewed Azithromycin (Azithromycin) 250 Mg Tablet, 250 MG PO DAILY, (Reported) Entered as Reported by: YAMILE KRUSE on 09/16/22 1126 Last Action: Reviewed Digoxin (Digoxin) 250 Mcg (0.25 Mg) Tablet, 250 MCG PO 1800, (Reported) Entered as Reported by: YAMILE KRUSE on 09/16/221125 Last Action: Reviewed Diltiazem HCl (Diltiazem 24Hr ER) 180 Mg Cap.er.24h, 180 MG PO DAILY, (Reported) Entered as Reported by: YAMILE KRUSE on 09/16/221125 Last Action: Reviewed Furosemide (Furosemide) 40 Mg Tablet, 40 MG PO DAILY, (Reported) Entered as Reported by: CARLO CHOE on 07/16/17752 Last Action: Reviewed Lisinopril (Lisinopril) 2.5 Mg Tablet, 2.5 MG PO DAILY, (Reported) Entered as Reported by: CARLO CHOE on 07/16/17752 Last Action: Reviewed Potassium Chloride (Potassium Chloride) 20 Meq Tab.er.prt, 20 MEQ PO DAILY, (Reported) Entered as Reported by: CARLO CHOE on 07/16/17752 Last Action: Reviewed Prednisone (Prednisone) 10 Mg Tab, MG PO DAILY, (Reported) Entered as Reported by: YAMILE KRUSE on 09/16/221125 Last Action: Reviewed Discontinued Medications Albuterol Sulfate (Albuterol Sulfate) 2.5 Mg/3 Ml Vial.neb, 2.5 MG NEB QID PRN for SHORTNESS OF BREATH, (Reported) Discontinued Reason: No Longer Taking Entered as Reported by: CARLO CHOE on 07/16/17752 Last Action: Discontinued Allopurinol (Allopurinol) 100 Mg Tablet, 100 MG PO DAIILY, (Reported) Discontinued Reason: No Longer Taking Entered as Reported by: CARLO CHOE on 07/16/17752 Last Action: Discontinued Famotidine (Pepcid) 40 Mg Tablet, 40 MG PO DAILY Discontinued Reason: No Longer Taking Prescribed by: DIDI NICHOLAS on 08/12/192155 Last Action: Discontinued Fluticasone/Salmeterol (Advair Hfa 115-21 Mcg Inhaler) 12 Gm Hfa.aer.ad, 2 PUFF IH BID@ Discontinued Reason: No Longer Taking Prescribed by: ALEXANDRU STEWART on 07/17/17 1634 Last Action: Discontinued Metoprolol Tartrate (Metoprolol Tartrate) 25 Mg Tablet, 25 MG PO DAILY, (Reporte d) Discontinued Reason: No Longer Taking Entered as Reported by: CARLO CHOE on 07/16/17 0753 Last Action: Discontinued Prednisone (Prednisone) 20 Mg Tab, 40 MG PO DAILY Discontinued Reason: No Longer Taking Prescribed by: DIDI NICHOLAS on 08/12/19 2156 Last Action: Discontinued Sulfamethoxazole/Trimethoprim (Bactrim Ds Tablet) 1 Each Tablet, 1 EACH PO BID Discontinued Reason: No Longer Taking Prescribed by: ALEXANDRU STEWART on 07/17/17 1634 Last Action: Discontinued Past Cfqdnop-Cmttli-Uhbzig Hx Patient Social History Marrital Status: Living Status: lives at home with spouse Employed/Student: employed Tobacco Use?: Yes Tobacco type used: Cigarettes Smoking Status: Current Everyday Smoker Smokeless Tobacco Frequency: Current Someday User Use of E-Cig and/or Vaping dev: No Substance use?: No Alcohol Use?: Yes Alcohol type: Hard Liquor Alcohol Frequency: Daily Pt feels they are or have been: No Immunizations Up To Date Date of Influenza Vaccine: May 25, 2015 Hepatitis A: No Hepatitis B: No Date of Pneumonia Vaccine: May 25, 2015 Seasonal Allergies Seasonal Allergies: No Current Status Advance Directives: No Communicates: Verbally Primary Language: Maori Preferred Spoken Language: Maori Is interpretation needed?: No Sensory deficits: Vision impairment Implanted or Applied Medical D: None Past Medical History Surgeries: Cardiac, Orthopedic Pneumonia, Sleep Apnea, COPD Currently Using CPAP: No (DOESN'T WEAR) Atrial Fibrillation, Hypertension Sexually Transmitted Disease: No HIV/AIDS: No Gout Loss of Vision: Denies Blood Disorders: No Adverse Reaction/Blood Tranf: No Family Medical History Reviewed Nursing Family Hx Cardiovascular disease G8 BROTHER Hypertension G8 BROTHER Heart Disease, Diabetes, Hypertension Review of Systems Constitutional: No chills, No fever, No malaise, No weakness EENTM: No hoarseness, No throat pain Respiratory: cough, dyspnea on exertion, short of breath Cardiovascular: No chest pain, No edema; Hx of Intervention, palpitations Gastrointestinal: No abdominal pain, No constipation, No diarrhea, No nausea, No vomiting Genitourinary: no symptoms reported Musculoskeletal: no symptoms reported Skin: no symptoms reported Psychiatric/Neurological: Denies Anxiety, Denies Depressed, Denies Weakness All Other Systems Reviewed Negative Unless Noted: Yes Physical Exam Vital Signs Vital Signs - First Documented 09/15/22 09/15/22 14:40 17:07 Temp 36.3 Pulse 181 Resp 16 B/P (MAP) 111/79 (90) Pulse Ox 93 O2 Delivery Room Air FiO2 21 Capillary Refill : Less Than 3 Seconds Height, Weight, BMI Height: 5'10.00" Weight: 211lbs. 3.0oz. [id number]; 28.08 BMI Method:Stated General Appearance: No Apparent Distress, WD/WN HEENT: PERRL/EOMI, Pharynx Normal Neck: Full Range of Motion, Supple Respiratory: Chest Non Tender, Decreased Breath Sounds, Wheezing Cardiovascular: Irregularly Irregular, Tachycardia Gastrointestinal: Normal Bowel Sounds, Non Tender, Soft Rectal: Deferred Extremity: Pedal Edema (trace) Neurologic/Psychiatric: Alert, Oriented x3, No Motor/Sensory Deficits, Normal Mood/Affect Skin: Normal Color, Warm/Dry Lymphatic: No Adenopathy Assessment/Plan Assessment and Plan Atrial fibrillation with RVR Hypertension COPD with chronic exacerbation Tobaccoism Atrial fibrillation with RVR - defer to multimedia production assistant - attempted cardioversion, will attempt later today with amiodarone bolus pt on anticoagulatin - waiting on ECHO report. Hypertension - pt on antihypertensive at this time COPD with chronic exacerbation - continue with steroids, antibiotics. - breathing treatments. Tobaccoism - continue to encourage cessation Admission Diagnosis Atrial fibrillation with RVR Hypertension COPD with chronic exacerbation Tobaccoism Admission Status: Inpatient Order (span 2 midnights) Reason for Inpatient Admission: inpatient admission for afib with rvr - will require 2-3 midnights for conversion, stabilization of rate, and medication monitoring KEHINDE NICOLAS MD Sep 16, 2022 08:38
[2022-09-16] MEDS ORDERED: ENOXAPARIN 100 MG/1 ML (LOVENOX) SYR SC NR (09:00)
[2022-09-16] MEDS: AMIODARONE INJECTION 450 MG in NORMAL SALINE 250 ML IV SCH ×2 (09:19→17:01)
[2022-09-16] MEDS ORDERED: PRD10T PO (11:26)
[2022-09-16] MEDS ORDERED: DIGO250T3 PO (11:26)
[2022-09-16] MEDS ORDERED: AZIT250T12 PO (11:26)
[2022-09-16] MEDS ORDERED: DILT180C85 PO (11:26)
[2022-09-16] MEDS ORDERED: ALB0.5V INH (11:36)
[2022-09-16] MEDS ORDERED: APIX5TAB PO (11:36)
--- NOTE | 2022-09-16 12:11 | Anesthesia-General Post-Op ---
MAC Significant Intra-Op Events Notes re sedated for cardioversion. pt still npo. start time 1145 end time 1200. 50mg propofol given iv. Patient Condition Mental Status/LOC: Same as Preop Cardiovascular: Satisfactory Nausea/Vomiting: Absent Respiratory: Satisfactory Pain: Controlled Complications: Absent Post Op Complications Complications None Follow Up Care/Instructions Patient Instructions None needed. Anesthesiology Discharge Order Discharge Order Patient is doing well, no complaints, stable vital signs, no apparent adverse anesthesia problems. No complications reported per nursing. LUIS M WALL CRNA Sep 16, 2022 12:11
--- NOTE | 2022-09-16 12:17 | Cardioversion ---
Cardioversion PROCEDURE PHYSICIAN: Bjorn Paiz DATE OF PROCEDURE: 09/16/22 DIRECT EXTERNAL ELECTRICAL CARDIOVERSION: Indications: Atrial Fibrillation with rapid ventricular rate Preoperative diagnoses: Atrial Fibrillation with rapid ventricular rate Postoperative diagnosis: Sinus rhythm, Successful Electrical Cardioversion Anesthesia: By Anesthesia services Complications: None Specimen: None Contrast: 0 Flouroscopy: none Procedure Details: 66 years old gentleman with history of atrial flutter ablation, admitted with atrial fibrillation that was difficult to control, did not achieve adequate heart rate controlled with Cardizem drip and or esmolol drip. Patient was hypotensive. DARSHANA was done and cardioversion was done, patient failed to maintain sinus rhythm. He was loaded with amiodarone and a second attempt was made for this afternoon. The patient was brought the dental laboratory assistant after informed consent was taken, all the risks and complications were explained including the risk of stroke. Electrical cardioversion was carried out with anesthesia support with propofol. 200 joules of synchronized shock was delivered through external patches for 3 attempts, patient continues to have paroxysmal atrial fibrillation with lower heart rate and intermittent sinus beats. Conclusions: Successful electrical cardioversion after 3 attempts BJORN PAIZ MD Sep 16, 2022 12:17
[2022-09-16] MEDS: AMIODARONE 200 MG (CORDARONE) TAB PO SCH ×2 (12:53→21:23)
[2022-09-17 04:15] LABS: BASOPHILS # (AUTO) 0.1 10^3/uL (0.0-0.1); BASOPHILS % (AUTO) 1 % (0-10); EOSINOPHILS # (AUTO) 0.2 10^3/uL (0.0-0.3); EOSINOPHILS % (AUTO) 2 % (0-10); HEMATOCRIT 43 % (40-54); HEMOGLOBIN 14.3 g/dL (13.3-17.7); LYMPHOCYTES # (AUTO) 1.8 10^3/uL (1.0-4.0); LYMPHOCYTES % (AUTO) 14 % (12-44); MEAN CORPUSCULAR HEMOGLOBIN 34 pg (25-34); MEAN CORPUSCULAR HGB CONC 33 g/dL (32-36); MEAN CORPUSCULAR VOLUME 103 fL (80-99); MEAN PLATELET VOLUME 10.3 fL (9.0-12.2); MONOCYTES # (AUTO) 1.4 10^3/uL (0.0-1.0); MONOCYTES % (AUTO) 10 % (0-12); NEUTROPHILS # (AUTO) 9.4 10^3/uL (1.8-7.8); NEUTROPHILS % (AUTO) 73 % (42-75); PLATELET COUNT 195 10^3/uL (130-400); WHITE BLOOD COUNT 12.9 10^3/uL (4.3-11.0)
[2022-09-17 04:29] LABS: ALBUMIN 3.8 GM/DL (3.2-4.5); POTASSIUM 3.9 MMOL/L (3.6-5.0)
[2022-09-17 04:31] LABS: CALCIUM 8.4 MG/DL (8.5-10.1)
[2022-09-17 04:34] LABS: BILIRUBIN,TOTAL 1.7 MG/DL (0.1-1.0)
[2022-09-17 04:35] LABS: PHOSPHORUS 3.8 MG/DL (2.3-4.7)
[2022-09-17 04:36] LABS: CREATININE SERUM 0.83 MG/DL (0.60-1.30)
[2022-09-17 04:38] LABS: MAGNESIUM 1.9 MG/DL (1.6-2.4)
[2022-09-17] MEDS: CATHETER FLUSH 10 ML SYR IVP SCH ×3 (05:46→22:00)
[2022-09-17] MEDS: ESMOLOL DRIP PREMIX 250 ML IV SCH (06:42)
[2022-09-17] MEDS: RT-ALBUTEROL SULF 2.5 MG/3 ML PRE-MIX VIAL INH SCH ×2 (07:01→21:26)
[2022-09-17] MEDS: RT-IPRATROPIUM (ATROVENT) 0.5MG/2.5ML AMP IH SCH ×2 (07:01→21:25)
[2022-09-17] MEDS: AMIODARONE 200 MG (CORDARONE) TAB PO SCH ×2 (08:16→20:20)
[2022-09-17] MEDS: APIXABAN 5 MG (ELIQUIS) TABLET PO SCH ×2 (08:16→20:20)
[2022-09-17] MEDS: DIGOXIN 0.25 MG (LANOXIN) TAB PO SCH (08:16)
--- NOTE | 2022-09-17 08:24 | Progress Note ---
Subjective Subjective Date Seen by Provider: Sep 17, 2022 Time Seen by Provider: 08:15 Pt reports that he was doing okay this morning, feeling better, his heart rate has slowed down some over the past 24 hours. He states that he does not want to be wearing oxygen when he is discharged. He admits to not wearing his CPAP. He reports that he feels more energetic than he did yesterday. Review of Systems General: No Chills, No Night Sweats; Fatigue; No Malaise HEENT: No Head Aches, No Visual Changes, No Eye Pain, No Dysphasia, No Sinus Congestion Pulmonary: No Dyspnea, No Cough, No Pleuritic Chest Pain Cardiovascular: Palpitations, Orthopnea; No: Chest Pain, Edema All Other Systems Reviewed All Other Systems Reviewed: Yes Objective Exam Vital Signs Vital Signs Date Time Temp Pulse Resp B/P (MAP) Pulse Ox O2 Delivery O2 Flow Rate FiO2 09/17/22 08:00 135 24 129/101 (107) 93 Nasal Cannula 5.00 09/17/22 07:35 36.7 09/17/22 07:01 Nasal Cannula 5.00 09/17/22 07:01 Nasal Cannula 5.00 09/17/22 07:00 135 27 128/91 (110) 94 Nasal Cannula 5.00 09/17/22 07:00 131 09/17/22 06:00 135 17 108/87 (93) 95 09/17/22 05:00 80 22 97 09/17/22 04:30 Nasal Cannula 5.00 09/17/22 04:15 36.1 09/17/22 04:00 70 16 127/93 (100) 94 Nasal Cannula 5.00 09/17/22 04:00 69 14 127/93 (100) 96 Nasal Cannula 5.00 09/17/22 03:00 77 20 123/94 (105) 93 09/17/22 03:00 73 29 123/94 (105) 93 Nasal Cannula 5.00 09/17/22 02:00 75 28 103/71 (78) 92 09/17/22 01:00 72 20 125/72 (92) 92 09/17/22 01:00 75 09/17/22 00:00 Nasal Cannula 5.00 09/17/22 00:00 36.2 137 24 121/84 (97) 93 Nasal Cannula 5.00 09/16/22 23:00 138 23 130/96 (107) 96 09/16/22 22:19 Nasal Cannula 5.00 09/16/22 22:00 117 23 110/97 (101) 94 09/16/22 21:00 128 28 126/85 (100) 94 09/16/22 20:00 Nasal Cannula 5.00 09/16/22 20:00 36.2 140 23 130/86 (102) 93 09/16/22 19:00 125 09/16/22 19:00 133 24 105/77 (86) 94 Nasal Cannula 5.00 09/16/22 18:00 77 18 126/74 (91) 96 Nasal Cannula 5.00 09/16/22 17:00 78 27 106/90 (95) 96 Nasal Cannula 5.00 09/16/22 16:00 85 42 108/95 (99) 93 Nasal Cannula 5.00 09/16/22 15:18 Nasal Cannula 5.00 09/16/22 15:00 81 25 106/71 (83) 94 Nasal Cannula 5.00 09/16/22 14:00 77 21 114/63 (80) 93 Nasal Cannula 5.00 09/16/22 13:00 73 33 169/101 (123) 93 Nasal Cannula 5.00 09/16/22 12:49 98 09/16/22 12:00 79 33 116/73 (87) 91 Nasal Cannula 5.00 09/16/22 12:00 Nasal Cannula 5.00 09/16/22 11:58 80 09/16/22 11:19 36.2 09/16/22 11:00 161 27 83/60 (68) 93 Nasal Cannula 5.00 09/16/22 10:00 163 26 102/82 (89) 93 Nasal Cannula 5.00 09/16/22 09:00 165 24 104/81 (89) 94 Nasal Cannula 5.00 I & O 09/17/22 07:00 Intake Total 1603 ml Output Total 1750 ml Balance -147 ml General Appearance: No Apparent Distress, WD/WN Eyes: Bilateral Eye Normal Inspection, Bilateral Eye PERRL, Bilateral Eye EOMI HEENT: PERRL/EOMI, Pharynx Normal Neck: Full Range of Motion, Supple Respiratory: Chest Non Tender, Decreased Breath Sounds, Wheezing Cardiovascular: Irregularly Irregular, Tachycardia Gastrointestinal: Normal Bowel Sounds, Non Tender, Soft Rectal: Deferred Back: Normal Inspection, No CVA Tenderness, No Vertebral Tenderness Extremity: Pedal Edema (trace) Neurologic/Psychiatric: Alert, Oriented x3, No Motor/Sensory Deficits, Normal Mood/Affect Skin: Normal Color, Warm/Dry Lymphatic: No Adenopathy Results Lab Laboratory Tests 09/17/22 03:40: White Blood Count 12.9H, Red Blood Count 4.20L, Hemoglobin 14.3, Hematocrit 43, Mean Corpuscular Volume 103H, Mean Corpuscular Hemoglobin 34, Mean Corpuscular Hemoglobin Concent 33, Red Cell Distribution Width 12.6, Platelet Count 195, Mean Platelet Volume 10.3, Immature Granulocyte % (Auto) 1, Neutrophils (%) (Auto) 73, Lymphocytes (%) (Auto) 14, Monocytes (%) (Auto) 10, Eosinophils (%) (Auto) 2, Basophils (%) (Auto) 1, Neutrophils # (Auto) 9.4H, Lymphocytes # (Auto) 1.8, Monocytes # (Auto) 1.4H, Eosinophils # (Auto) 0.2, Basophils # (Auto) 0.1, Immature Granulocyte # (Auto) 0.1, Sodium Level 137, Potassium Level 3.9, Chloride Level 98, Carbon Dioxide Level 27, Anion Gap 12, Blood Urea Nitrogen 16, Creatinine 0.83, Estimat Glomerular Filtration Rate 97, BUN/Creatinine Ratio 19, Glucose Level 94, Calcium Level 8.4L, Corrected Calcium 8.6, Phosphorus Level 3.8, Magnesium Level 1.9, Total Bilirubin 1.7H, Aspartate Amino Transf (AST/SGOT) 27, Alanine Aminotransferase (ALT/SGPT) 54, Alkaline Phosphatase 54, Total Protein 6.0L, Albumin 3.8 Microbiology 09/15/22 MRSA Screen - Final, Complete MRSA not isolated Assessment/Plan Assessment/Plan Admission Dx Atrial fibrillation with RVR Hypertension COPD with chronic exacerbation Tobaccoism Assessment and Plan Atrial fibrillation with RVR Hypertension COPD with chronic exacerbation Tobaccoism Atrial fibrillation with RVR - defer to alumni relations officer - attempted cardioversion, with cardiology x 2 yesterday, they will continue with amiodarone and cardiology will work with him to do a cardioversion as outpatient. pt on anticoagulation Hypertension - pt on antihypertensive at this time COPD with chronic exacerbation - continue with steroids, antibiotics. - breathing treatments. Tobaccoism - continue to encourage cessation Admission Dx Atrial fibrillation with RVR Hypertension COPD with chronic exacerbation Tobaccoism Clinical Quality Measures Admission Status Admission Dx Atrial fibrillation with RVR Hypertension COPD with chronic exacerbation Tobaccoism KEHINDE MADSEN MD Sep 17, 2022 08:23
--- NOTE | 2022-09-17 09:09 | Cardiology Progress Note ---
Subjective Date Seen by Provider: Sep 17, 2022 Time Seen by Provider: 09:08 Subjective/Events-last exam Patient was seen at bedside, was in atrial fibrillation, has been in and out of sinus rhythm Review of Systems General: No Chills, No Night Sweats, No Fatigue, No Malaise, No Appetite, No Other HEENT: No Head Aches, No Visual Changes, No Eye Pain, No Ear Pain, No Dysphasia, No Sinus Congestion, No Post Nasal Drip, No Sore Throat, No Other Pulmonary: Dyspnea; No Cough, No Pleuritic Chest Pain, No Other Cardiovascular: No: Chest Pain, Palpitations, Orthopnea, Paroxysmal Noc. Dyspnea, Edema, Lt Headedness, Other Objective-Cardiology Exam Last Set of Vital Signs Vital Signs 09/15/22 09/17/22 09/17/22 17:07 07:35 09:00 Temp 36.7 Pulse 125 Resp 20 B/P (MAP) 120/97 (108) Pulse Ox 93 O2 Delivery Nasal Cannula O2 Flow Rate 5.00 FiO2 21 I&O Intake and Output 09/17/22 00:00 Intake Total 3078 ml Output Total 1300 ml Balance 1778 ml Intake Oral 1600 ml IV Total 1478 ml Output Urine Total 1300 ml General: Alert, Oriented X3, Cooperative HEENT: Atraumatic, PERRLA Neck: Supple, No JVD, No Thyromegaly Lungs: Normal Air Movement, Other (Bilateral rhonchi) Heart: Normal S1, Normal S2, No Murmurs, Other (Atrial fibrillation with rapid ventricular response) Abdomen: Normal Bowel Sounds, Soft, No Tenderness, No Hepatosplenomegaly, No Masses Extremities: No Clubbing, No Cyanosis, No Edema, Normal Pulses, No Tenderness/Swelling Skin: No Rashes, No Breakdown, No Significant Lesion Neuro: Normal Gait, Normal Speech, Strength at 5/5 X4 Ext, Normal Tone, Sensation Intact Psych/Mental Status: Mental Status NL, Mood NL Results Lab Laboratory Tests 09/17/22 03:40 A/P-Cardiology Admission Diagnosis Atrial fibrillation Atrial flutter COPD Shortness of breath Assessment/Plan Atrial fibrillation with rapid ventricular response Did not respond to Cardizem drip or esmolol drip Received digoxin Having soft blood pressure, started on amiodarone bolus and a drip He was scheduled for cardioversion today and appeared to be going in and out of sinus rhythm. I will continue with loading with amiodarone and will consider repeating cardioversion in 1 week after he is fully loaded. May require another ablation History of atrial flutter, had ablation done by Dr. Padilla in May 2015. Congestive heart failure, history of nonischemic cardiomyopathy with ejection fraction 20% on DARSHANA in May 2015. Patient reported resolution of the heart failure after the atrial flutter ablation. Shortness of breath, worsening recently, probably secondary to underlying COPD and to the atrial fibrillation History of sleep apnea, CPAP was advised. Noncompliant. CT of the chest in August 2022 reported as right lower lobe mass for the past 5 years, minimal increase in size from 2017 Patient is scheduled to see 's case water. Hypertension, monitor blood pressure Hyperlipidemia, monitor lipids BJORN HEART MD Sep 17, 2022 09:09
[2022-09-17] MEDS ORDERED: FLUTICASONE/VILANTEROL 200 MCG 14'S (BREO) IH SCH (09:45)
[2022-09-17] MEDS ORDERED: AMIODARONE FOR BOLUS 150 MG in NS (IVPB) 100 ML IV NR (13:15)
[2022-09-17 13:38] VITALS: BP 148/78
[2022-09-17] MEDS: RT--FLUTICASONE/SALMETEROL 232-14 (AIRDUO RespiCLICK) IH SCH (21:26)
[2022-09-18 04:28] LABS: BASOPHILS % (AUTO) 0 % (0-10); EOSINOPHILS # (AUTO) 0.2 10^3/uL (0.0-0.3); EOSINOPHILS % (AUTO) 2 % (0-10); HEMATOCRIT 42 % (40-54); HEMOGLOBIN 14.3 g/dL (13.3-17.7); LYMPHOCYTES # (AUTO) 1.5 10^3/uL (1.0-4.0); LYMPHOCYTES % (AUTO) 12 % (12-44); MEAN CORPUSCULAR HEMOGLOBIN 35 pg (25-34); MEAN CORPUSCULAR HGB CONC 34 g/dL (32-36); MEAN CORPUSCULAR VOLUME 102 fL (80-99); MEAN PLATELET VOLUME 10.5 fL (9.0-12.2); MONOCYTES # (AUTO) 1.5 10^3/uL (0.0-1.0); MONOCYTES % (AUTO) 11 % (0-12); NEUTROPHILS # (AUTO) 9.5 10^3/uL (1.8-7.8); NEUTROPHILS % (AUTO) 75 % (42-75); PLATELET COUNT 195 10^3/uL (130-400); WHITE BLOOD COUNT 12.7 10^3/uL (4.3-11.0)
[2022-09-18 04:40] LABS: ALBUMIN 3.9 GM/DL (3.2-4.5); POTASSIUM 3.9 MMOL/L (3.6-5.0)
[2022-09-18 04:42] LABS: CALCIUM 8.5 MG/DL (8.5-10.1)
[2022-09-18 04:43] LABS: TOTAL PROTEIN 6.3 GM/DL (6.4-8.2)
[2022-09-18 04:45] LABS: BILIRUBIN,TOTAL 1.6 MG/DL (0.1-1.0)
[2022-09-18 04:46] LABS: PHOSPHORUS 2.6 MG/DL (2.3-4.7)
[2022-09-18 04:47] LABS: CREATININE SERUM 0.84 MG/DL (0.60-1.30)
[2022-09-18 04:50] LABS: MAGNESIUM 1.9 MG/DL (1.6-2.4)
[2022-09-18] MEDS ORDERED: NS IV 500 ML 500 ML IV PRN (06:00)
[2022-09-18] MEDS ORDERED: KCL 20 MEQ TAB (K-DUR) PO SCH (06:00)
[2022-09-18] MEDS ORDERED: KCL 20 MEQ TAB (K-DUR) PO ONE (06:00)
[2022-09-18] MEDS ORDERED: MAGNESIUM 1 GM/100 ML IVPB 100 ML IV SCH (06:00)
[2022-09-18] MEDS ORDERED: POTASSIUM CL 10MEQ/50ML IVPB 50 ML IV SCH (06:00)
[2022-09-18] MEDS: MAGNESIUM 1 GM/100 ML IVPB 100 ML IV SCH ×2 (06:30→06:31)
[2022-09-18] MEDS: CATHETER FLUSH 10 ML SYR IVP SCH ×3 (06:31→22:03)
[2022-09-18] MEDS: RT-ALBUTEROL SULF 2.5 MG/3 ML PRE-MIX VIAL INH SCH ×2 (07:24→21:46)
[2022-09-18] MEDS: RT-IPRATROPIUM (ATROVENT) 0.5MG/2.5ML AMP IH SCH ×2 (07:24→21:46)
[2022-09-18] MEDS: RT--FLUTICASONE/SALMETEROL 232-14 (AIRDUO RespiCLICK) IH SCH (07:24)
--- NOTE | 2022-09-18 08:13 | Cardiology Progress Note ---
Subjective Date Seen by Provider: Sep 18, 2022 Time Seen by Provider: 08:12 Subjective/Events-last exam Patient is lying down in bed, has been in and out of atrial fibrillation. Review of Systems General: No Chills, No Night Sweats, No Fatigue, No Malaise, No Appetite, No Other HEENT: No Head Aches, No Visual Changes, No Eye Pain, No Ear Pain, No Dysphasia, No Sinus Congestion, No Post Nasal Drip, No Sore Throat, No Other Pulmonary: No Dyspnea, No Cough, No Pleuritic Chest Pain, No Other Cardiovascular: No: Chest Pain, Palpitations, Orthopnea, Paroxysmal Noc. Dyspnea, Edema, Lt Headedness, Other Objective-Cardiology Exam Last Set of Vital Signs Vital Signs 09/15/22 09/18/22 09/18/22 17:07 07:55 08:00 Temp 36.5 Pulse 108 Resp 20 B/P (MAP) 121/87 (101) Pulse Ox 90 O2 Delivery Nasal Cannula O2 Flow Rate 4.00 FiO2 21 I&O Intake and Output 09/18/22 00:00 Intake Total 2462 ml Output Total 450 ml Balance 2011 ml Intake Oral 2100 ml IV Total 362 ml Output Urine Total 450 ml # Voids 3 General: Alert, Oriented X3, Cooperative HEENT: Atraumatic, PERRLA Neck: Supple, No JVD, No Thyromegaly Lungs: Normal Air Movement, Other (Bilateral rhonchi) Heart: Normal S1, Normal S2, No Murmurs, Other (Atrial fibrillation with rapid ventricular response) Abdomen: Normal Bowel Sounds, Soft, No Tenderness, No Hepatosplenomegaly, No Masses Extremities: No Clubbing, No Cyanosis, No Edema, Normal Pulses, No Tenderness/Swelling Skin: No Rashes, No Breakdown, No Significant Lesion Neuro: Normal Gait, Normal Speech, Strength at 5/5 X4 Ext, Normal Tone, Sen sation Intact Psych/Mental Status: Mental Status NL, Mood NL Results Lab Laboratory Tests 09/18/22 03:36 A/P-Cardiology Admission Diagnosis Atrial fibrillation Atrial flutter COPD Shortness of breath Assessment/Plan Atrial fibrillation with rapid ventricular response Did not respond to Cardizem drip or esmolol drip Received digoxin Having soft blood pressure, started on amiodarone bolus and a drip He was scheduled for cardioversion today and appeared to be going in and out of sinus rhythm. I will continue with loading with amiodarone and will consider repeating cardioversion in 1 week after he is fully loaded. May require another ablation History of atrial flutter, had ablation done by Dr. Padilla in May 2015. Congestive heart failure, history of nonischemic cardiomyopathy with ejection fraction 20% on DARSHANA in May 2015. Patient reported resolution of the heart failure after the atrial flutter ablation. Shortness of breath, worsening recently, probably secondary to underlying COPD and to the atrial fibrillation History of sleep apnea, CPAP was advised. Noncompliant. CT of the chest in August 2022 reported as right lower lobe mass for the past 5 years, minimal increase in size from 2017 Patient is scheduled to see 's case water. Hypertension, monitor blood pressure Hyperlipidemia, monitor lipids BJORN HEART MD Sep 18, 2022 08:13
[2022-09-18] MEDS: AMIODARONE 200 MG (CORDARONE) TAB PO SCH ×2 (09:10→21:31)
[2022-09-18] MEDS: DIGOXIN 0.25 MG (LANOXIN) TAB PO SCH (09:10)
[2022-09-18] MEDS: APIXABAN 5 MG (ELIQUIS) TABLET PO SCH ×2 (09:10→21:31)
--- NOTE | 2022-09-18 11:29 | Physician Query Clarification ---
Physician Query-General Query to Physician: The medical record reflects the following clinical evidence: Clinical Indicators: RR 16 on admission, Mostly the 20s highest recorded was 31, O2 sat on admission 93% this was on room air, was placed on O2 and a few hours later had a sats 88-89 on 3 L (P/F=172), Nursing is documentation of shortness of air at rest and with exertion on admission, with ongoing documentation of shortness of air at rest, currently on 4 L oxygen with documentation O2 sats 81 to 90%, O2 needs up to 5 L Risk Factor(s): At. Fib with RVR, Smoker, Cardiomyopathy, COPD, No documentation of home 02 use, "Has had an upper respiratory infection and is finishing some antibiotics and steroids at this time" Multiple cardioversions with sedation Treatment: Supplemental O2, Monitoring in ICU, Atrovent, Air duo, Albuterol, Acute respiratory failure with hypoxia, present on admission Other explanation of clinical findings Unable to determine (no explanation for clinical findings) Please clarify and document your clinical opinion in the progress notes and discharge summary including the definitive and/or presumptive diagnosis, (suspected or probable), related to the above clinical findings. Please include clinical findings supporting your diagnosis. Lee Ann To, MSN, RN Clinical Engineer Steam [phone] [email or web address] PHYSICIAN RESPONSE: Based on the clinical findings in the record, please respond to the query above on this document as an addendum. Physician Response: Physician Response 1 If you have questions please contact: Refining Still Operator: Ext: Thank you for your time and cooperation. Clinical Engineer Steam/Refining Still Operator This is a permanent part of the medical record LEE ANN TO Sep 18, 2022 11:29 TABATHA JOHNSON DO Sep 20, 2022 06:17
--- NOTE | 2022-09-18 14:20 | Progress Note ---
BRANDEE LOPEZ 09/18/22 1420: Subjective Subjective/Events-last exam Mr Garcia is seen at bedside this morning. He reports that he is feeling well with no chest pain or shortness of breath. He denies the sensation of palpitations and seems to be in normal sinus rhythm when viewing the monitor. He says that Dr. Paiz has seen him and wants to keep him another day in order to achieve better rate control and speak with electrophysiology. He denies any issues overnight. He has had BMs and is urinating without issue. Review of Systems General: No Chills, No Night Sweats HEENT: No Head Aches Pulmonary: No Dyspnea, No Cough Cardiovascular: No: Chest Pain, Palpitations (at the time of interview), Edema Gastrointestinal: No: Nausea, Vomiting, Abdominal Pain Genitourinary: No Dysuria, No Hematuria Neurological: No: Confusion Objective Exam Last Set of Vital Signs Vital Signs Date Time Temp Pulse Resp B/P (MAP) Pulse Ox O2 Delivery O2 Flow Rate FiO2 09/18/22 12:49 70 09/18/22 12:00 36.5 09/18/22 12:00 24 135/67 (93) 93 Nasal Cannula 4.00 09/15/22 17:07 21 Capillary Refill : Less Than 3 Seconds I&O Intake and Output 09/17/22 23:59 Intake Total 2462 ml Output Total 450 ml Balance 2012 ml Intake Oral 2100 ml IV Total 362 ml Output Urine Total 450 ml # Voids 3 General: Alert, Oriented X3, Cooperative HEENT: EOMI Neck: Supple Lungs: Clear to Auscultation, Normal Air Movement Heart: No Murmurs, Other (tachycardic in the 120s on my exam) Abdomen: Soft, No Tenderness Extremities: No Cyanosis, No Edema Neuro: Normal Speech Psych/Mental Status: Mental Status NL, Mood NL Results Lab Laboratory Tests 09/18/22 03:36: White Blood Count 12.7H, Red Blood Count 4.10L, Hemoglobin 14.3, Hematocrit 42, Mean Corpuscular Volume 102H, Mean Corpuscular Hemoglobin 35H, Mean Corpuscular Hemoglobin Concent 34, Red Cell Distribution Width 12.3, Platelet Count 195, Mean Platelet Volume 10.5, Immature Granulocyte % (Auto) 1, Neutrophils (%) (Auto) 75, Lymphocytes (%) (Auto) 12, Monocytes (%) (Auto) 11, Eosinophils (%) (Auto) 2, Basophils (%) (Auto) 0, Neutrophils # (Auto) 9.5H, Lymphocytes # (Auto) 1.5, Monocytes # (Auto) 1.5H, Eosinophils # (Auto) 0.2, Basophils # (Auto) 0.0, Immature Granulocyte # (Auto) 0.1, Sodium Level 138, Potassium Level 3.9, Chloride Level 97L, Carbon Dioxide Level 30, Anion Gap 11, Blood Urea Nitrogen 10, Creatinine 0.84, Estimat Glomerular Filtration Rate 96, BUN/Creatinine Ratio 12, Glucose Level 103, Calcium Level 8.5, Corrected Calcium 8.6, Phosphorus Level 2.6, Magnesium Level 1.9, Total Bilirubin 1.6H, Aspartate Amino Transf (AST/SGOT) 22, Alanine Aminotransferase (ALT/SGPT) 44, Alkaline Phosphatase 59, Total Protein 6.3L, Albumin 3.9 Microbiology 09/15/22 MRSA Screen - Final, Complete MRSA not isolated Assessment/Plan Assessment/Plan Assess & Plan/Chief Complaint Afib with RVR Cardiology consulted On oral amio, diltizem, and digoxin Cardioversion x2 on 09/16 Echo on 09/16 showing L atrial dilation with no thrombus in the L atrial appendage Continue apixaban for stroke prophylaxis Dr Paiz has recommended loading amiodarone and cardioversion in 1wk, pt may ultimately need ablation Exacerbation of COPD On 4L by va, satting in the low 90s Wears O2 at home while sleeping Continue nebulized treatments and steroid Needs smoking cessation HTN lisinopril and lasix home meds held Pressures in acceptable ranges today Leukocytosis On steroids 12.7 today down from 15.2 on admission Continue to monitor for signs of infection Elevated BNP resolved, echo 09/16 showing slightly reduced systolic function of left ventricle Hx of aflutter s/p ablation in 2014 MADIE JOHNSON DO 09/19/22 0548: Subjective Date Seen by a Provider: Sep 18, 2022 Time Seen by a Provider: 09:00 Supervisory-Addendum Brief Verification & Attestation Participated in pt care: history, MDM, physical Personally performed: exam, history, MDM, supervision of care Care discussed with: Medical Student Procedures: n/a Results interpretation: Verified all documentation Verification and Attestation of Medical Student E/M Service A medical student performed and documented this service in my presence. I reviewed and verified all information documented by the medical student and made modifications to such information, when appropriate. I personally performed the physical exam and medical decision making. Madie Johnson, Sep 19, 2022,05:47 BRANDEE LOPEZ Sep 18, 2022 14:20 MADIE JOHNSON DO Sep 19, 2022 05:48
--- NOTE | 2022-09-18 14:39 | Occupational Therapy Eval ---
OT Evaluation-General/PLF Medical Diagnosis Admission Date Sep 15, 2022 at 15:49 Medical Diagnosis: Atrial fibrillation with RVR Onset Date: Sep 15, 2022 Therapy Diagnosis Therapy Diagnosis: 02 dependency Height/Weight Height (Feet): 5 Height (Inches): 10.00 Weight (Pounds): 211 Weight (Ounces): 3.0 Precautions Precautions/Isolations: Fall Prevention, Standard Precautions Weight Bear Status Weight Bearing Restriction: Weight Bearing/Tolerated Referral Referral Reason: Evaluation/Treatment Medical History Pertinent Medical History: Atrial Fib, HTN Additional Medical History Atrial fibrillation with RVR Hypertension COPD with chronic exacerbation Tobaccoism Current History Pt is a 66 y/o male has hx of atrial flutter status post ablation, recent diagnosis of A-fib now on Eliquis, diltiazem, and digoxin via Dr. Carty as of 09/13/22. Pt presented to the hospital after having an ECHO which showed concerns for A-fib with RVR. He states that he does feel palpitations, and feels short of breath with it. Mild chest discomfort with it as well. He has COPD and continues to smoke daily, Patient reports feeling much better today 09/18/22 Reviewed History: Yes Social History Home: Single Level Current Living Status: Spouse ADL-Prior Level of Function SCALE: Activities may be completed with or without assistive devices. 8-Awqwurinub-cqwykau completes the activity by him/herself with no assistance from a helper. 5-Set-up or Clean-up Assistance-helper sets up or cleans up; patient completes activity. [place] assists only prior to or following the activity. 4-Supervision or Touching Assistance-helper provides verbal cues and/or touching/steadying and/or contact guard assistance as patient completes activity. Assistance may be provided throughout the activity or intermittently. 3-Partial/Moderate Assistance-helper does LESS THAN HALF the effort. [place] lifts, holds or supports trunk or limbs, but provides less than half the effort. 2-Substantial/Maximal Assistance-helper does MORE THAN HALF the effort. [place] lifts or holds trunk or limbs and provides more than half the effort. 4-Dtyspubac-xrgovm does ALL the effort. Patient does none of the effort to complete the activity. Or, the assistance of 2 or more helpers is required for the patient to complete the activity. If activity was not attempted, code reason: 7-Patient Refused. 9-Not Applicable-not attempted and the patient did not perform the activity before the current illness, exacerbation or injury. 10-Not Attempted due to Environmental Limitations-(lack of equipment, weather restraints, etc.). 88-Not Attempted due to Medical Conditions or Safety Concerns. Self Care: Independent Functional Cognition: Independent Drive Self: Yes OT Current Status Subjective UP in chair, reports Physical Therapy taught him the ZAYDA SÁNCHEZE Pain Numeric Pain Scale: 0-No Pain Mental Status/Objective Patient Orientation: Person, Place, Time, Situation Eager to return home, hopes this medication fixes the issue Attachments: Oxygen, Telemetry Current Glasses/Contacts: Yes Upper Extremity ROM BUE WNL ROM/Strength/sensation/coordination ADL-Treatment Eating (QC): 6 Oral Hygiene (QC): 6 Shower/Bathe Self (QC): 7 (not tested declined) Upper Body Dressing (QC): 6 Lower Body Dressing (QC): 6 On/Off Footwear (QC): 6 Toileting Hygiene (QC): 6 Education OT Patient Education: Disease process, Energy conservation, Exercise program, Progress toward Goal/Update tx plan, Purpose of tx/functional activities, Reviewed precautions, Rehab process, Safety issues, Transfer techniques, Use of adapted equipment Teaching Recipient: Patient Teaching Methods: Demonstration, Discussion Response to Teaching: Verbalize Understanding OT Paint Department Supervisor Goals Senior Care Goals 1=Demonstrate adherence to instructed precautions during ADL tasks. 2=Patient will verbalize/demonstrate understanding of assistive devices/modifications for ADL. 3=Patient will improve strength/tolerance for activity to enable patient to perform ADL's. OT Education/Plan Problem List/Assessment Assessment: No Skilled OT Needs ID'd Discharge Recommendations Plan/Recommendations: Discontinue OT Therapy Discharge Recommendati: Home & Family Treatment Plan/Plan of Care Treatment,Training & Education: Yes Patient would benefit from OT for education, treatment and training to promote independence in ADL's, mobility, safety and/or upper extremity function for ADL's. Plan of Care: OTHER (Evaluation only) Treatment Duration: Sep 18, 2022 Frequency: 1 time per week Estimated Hrs Per Day: .25 hour per day Agreement: Yes Rehab Potential: Good Time Start Time: 13:44 Stop Time: 14:02 DATE: Sep 18, 2022 Total Time Billed (hr/min): 16 Billed Treatment Time 1 visit EVl 1 16 min JEREL ARMENDARIZ OT Sep 18, 2022 14:39
--- NOTE | 2022-09-18 14:48 | Physical Therapy Evaluation ---
PT Evaluation-General Medical Diagnosis Admission Date Sep 15, 2022 at 15:49 Medical Diagnosis: A-fib with RVR Onset Date: Sep 15, 2022 Therapy Diagnosis Therapy Diagnosis: debility Height/Weight Height (Feet): 5 Height (Inches): 10.00 Weight (Pounds): 211 Weight (Ounces): 3.0 Precautions Precautions/Isolations: Fall Prevention, Standard Precautions Referral Physician: Franci Reason for Referral: Evaluation/Treatment Medical History Pertinent Medical History: Atrial Fib, COPD, HTN, Smoking Current History ER secondary to elevated HR Reviewed History: Yes Social History Home: Single Level Current Living Status: Spouse Prior Prior Level of Function SCALE: Activities may be completed with or without assistive devices. 2-Uumfmpatbz-neqrhnf completes the activity by him/herself with no assistance from a helper. 5-Set-up or Clean-up Assistance-helper sets up or cleans up; patient completes activity. [place] assists only prior to or following the activity. 4-Supervision or Touching Assistance-helper provides verbal cues and/or touc tanika/steadying and/or contact guard assistance as patient completes activity. Assistance may be provided throughout the activity or intermittently. 3-Partial/Moderate Assistance-helper does LESS THAN HALF the effort. [place] lifts, holds or supports trunk or limbs, but provides less than half the effort. 2-Substantial/Maximal Assistance-helper does MORE THAN HALF the effort. [place] lifts or holds trunk or limbs and provides more than half the effort. 0-Spmqgqdak-sbxojk does ALL the effort. Patient does none of the effort to complete the activity. Or, the assistance of 2 or more helpers is required for the patient to complete the activity. If activity was not attempted, code reason: 7-Patient Refused. 9-Not Applicable-not attempted and the patient did not perform the activity before the current illness, exacerbation or injury. 10-Not Attempted due to Environmental Limitations-(lack of equipment, weather restraints, etc.). 88-Not Attempted due to Medical Conditions or Safety Concerns. Bed Mobility: 6 Transfers (B,C,W/C): 6 Gait: 6 Stairs: 6 Indoor Mobility (Ambulation): Independent Stairs: Independent Prior Devices Use: None PT Evaluation-Current Subjective Patient agrees to PT. Objective Patient Orientation: Normal For Age ROM/Strength ROM Lower Extremities bilateral LE WFL Strength Lower Extremities 5/5 grossly bilateral LE all planes Integumentary/Posture Bowel Incontinence: No Bladder Incontinence: No Posture WFL Neuromuscular (Tone, Coordination, Reflexes) grossly intact Sensory Vision: Wears Glasses Hearing: Functional Transfers Lying to Sitting/Side of Bed(Q: 6 Sit to Stand (QC): 6 Chair/Jmt-xz-Nxfir Xfer(QC): 6 Gait Mode of Locomotion: Walk Anticipated Mode of Locomotion: Walk Walk 10 feet (QC): 6 Walk 50 ft with 2 Turns(QC): 6 Walk 150 ft (QC): 6 Distance: >500' Gait Assistive Device: None Comments/Gait Description safe and functional with no deviation Balance Sitting Static: Normal Sitting Dynamic: Normal Standing Static: Normal Standing Dynamic: Normal Assessment/Needs Patient is currently at independent [facility] with all gross motor skills and does not require skilled PT intervention at this time. Rehab Potential: Fair PT Plan Treatment/Plan Treatment Plan: Discontinue PT Treatment Duration: Sep 18, 2022 Frequency: 1 time per week Estimated Hrs Per Day: .25 hour per day Patient and/or Family Agrees t: Yes Time Time In: 1325 Time Out: 1337 DATE: Sep 18, 2022 Total Billed Treatment Time: 12 Total [facility] [address] [facility] JENNYFER COSBY PT Sep 18, 2022 14:48
[2022-09-19 05:27] LABS: BASOPHILS # (AUTO) 0.1 10^3/uL (0.0-0.1); BASOPHILS % (AUTO) 0 % (0-10); EOSINOPHILS # (AUTO) 0.3 10^3/uL (0.0-0.3); EOSINOPHILS % (AUTO) 2 % (0-10); HEMATOCRIT 42 % (40-54); HEMOGLOBIN 14.1 g/dL (13.3-17.7); LYMPHOCYTES # (AUTO) 1.3 10^3/uL (1.0-4.0); LYMPHOCYTES % (AUTO) 11 % (12-44); MEAN CORPUSCULAR HEMOGLOBIN 34 pg (25-34); MEAN CORPUSCULAR HGB CONC 33 g/dL (32-36); MEAN CORPUSCULAR VOLUME 102 fL (80-99); MEAN PLATELET VOLUME 9.7 fL (9.0-12.2); MONOCYTES # (AUTO) 1.3 10^3/uL (0.0-1.0); MONOCYTES % (AUTO) 11 % (0-12); NEUTROPHILS # (AUTO) 8.5 10^3/uL (1.8-7.8); NEUTROPHILS % (AUTO) 74 % (42-75); PLATELET COUNT 192 10^3/uL (130-400); WHITE BLOOD COUNT 11.5 10^3/uL (4.3-11.0)
[2022-09-19 05:48] LABS: ALBUMIN 3.7 GM/DL (3.2-4.5); BILIRUBIN,TOTAL 1.3 MG/DL (0.1-1.0); CALCIUM 8.7 MG/DL (8.5-10.1); CREATININE SERUM 0.83 MG/DL (0.60-1.30); MAGNESIUM 2.1 MG/DL (1.6-2.4); POTASSIUM 4.1 MMOL/L (3.6-5.0)
[2022-09-19] MEDS: CATHETER FLUSH 10 ML SYR IVP SCH (06:03)
[2022-09-19] MEDS: RT-ALBUTEROL SULF 2.5 MG/3 ML PRE-MIX VIAL INH SCH (07:45)
[2022-09-19] MEDS: RT--FLUTICASONE/SALMETEROL 232-14 (AIRDUO RespiCLICK) IH SCH (07:45)
[2022-09-19] MEDS: RT-IPRATROPIUM (ATROVENT) 0.5MG/2.5ML AMP IH SCH (07:45)
[2022-09-19] MEDS: APIXABAN 5 MG (ELIQUIS) TABLET PO SCH (08:20)
[2022-09-19] MEDS: DIGOXIN 0.25 MG (LANOXIN) TAB PO SCH (08:20)
[2022-09-19] MEDS: AMIODARONE 200 MG (CORDARONE) TAB PO SCH (08:21)
[2022-09-19] MEDS ORDERED: APIX5TAB PO (11:12)
[2022-09-19] MEDS ORDERED: AMIO200T65 PO (11:12)
[2022-09-19] MEDS ORDERED: DILT240C91 PO (11:24)
--- NOTE | 2022-09-19 11:24 | Discharge Summary ---
Diagnosis/Chief Complaint Date of Admission Sep 15, 2022 at 15:49 Date of Discharge Discharge Date: Sep 19, 2022 Discharge Diagnosis Assess & Plan/Chief Complaint Afib with RVR Cardiology consulted On oral amio, diltizem, and digoxin Cardioversion x2 on 09/16 Echo on 09/16 showing L atrial dilation with no thrombus in the L atrial appendage Continue apixaban for stroke prophylaxis Dr Paiz has recommended loading amiodarone and cardioversion in 1wk, pt may ultimately need ablation Exacerbation of COPD On 4L by nc, satting in the low 90s Wears O2 at home while sleeping Continue nebulized treatments and steroid Needs smoking cessation HTN lisinopril and lasix home meds held Pressures in acceptable ranges today Leukocytosis On steroids 12.7 today down from 15.2 on admission Continue to monitor for signs of infection Elevated BNP resolved, echo 09/16 showing slightly reduced systolic function of left ventricle Hx of aflutter s/p ablation in 2014 Discharge Summary Discharge Physical Examination Allergies: Coded Allergies: NATALY Inhibitors (Verified Allergy, Unknown, 08/12/19) angioedema Vitals & I&Os Vital Signs Date Time Temp Pulse Resp B/P (MAP) Pulse Ox O2 Delivery O2 Flow Rate FiO2 09/19/22 13:12 09/19/22 11:17 37.0 66 20 94 High Flow N/C 2.00 09/15/22 17:07 21 General Appearance: Alert, Oriented X3, Cooperative Respiratory: Other (subtle wheeze, no O2) Neuro: Normal Gait, Normal Speech, Strength at 5/5 X4 Ext Hospital Course Was the Problem List Reviewed?: Yes Edward Garcia is a 66M who presented to the ER on 09/15. Past medical Hx of HTN, HLD, and aflutter s/p ablation in 2014. HPI from ER "66-year-old male with past medical history of a flutter status post ablation, recent diagnosis of A-fib now on Eliquis, diltiazem, and digoxin via Dr. Hughes coming in due to concerns for A-fib with RVR. He was in here earlier for an echo, they put him on the monitor, and referred him to the ER because his heart rate was elevated. He states that he does feel palpitations, and feels short of breath with it. Mild chest discomfort with it as well. He states he was diagnosed with A-fib [address] Hughes's office and he started him on all those new medications which she has been taking. Last had a flutter in 2016 which was fixed with the ablation, and as far as he knows he is never been in A- fib before. Has had an upper respiratory infection and is finishing some antibiotics and steroids at this time. Does have COPD as well and continues to smoke." In the ER he was given diltiazem. Cardiac workup was negative. Cadiology was consulted as well as Dr Nicolas for admission to the ICU. HPI from admission "Pt is a 66 y/o male who is known to me from clinic. He has hx of atrial flutter status post ablation, recent diagnosis of A-fib now on Eliquis, diltiazem, and digoxin via Dr. Carty as of 09/13/22. Pt presented to the hospital after having an ECHO which showed concerns for A-fib with RVR. He states that he does feel palpitations, and feels short of breath with it. Mild chest discomfort with it as well. He has COPD and continues to smoke daily." Rate control was attempted with diltiazem, amiodarone, and digoxin. Patient failed rate control with esmolol drip and cardizem drip. Cardioversion with Dr Paiz on 09/16. Went into sinus rhythm. Eventually reverted to afib. Cardioversion again on 09/16 Echo on 09/16 showed atrial dilation with no evidence of clot in the L atrial appendage. Rate control continued to be managed by cardiology, converted to sinus rhythm Anticoagulated with apixaban during his hospitalization Electrolytes replaced as needed Leukocytosis resolved with declining values each progressive day Pt also treated for COPD exacerbation with nebulized treatments and steroids. Required oxygen by nasal cannula during his stay that was eventually DCed before discharge Pt moved from ICU to 4th floor on 09/18 On 09/18 and 09/19 Dr Nicolas was ill so Dr Johnson covered her service in the hospital PT/OT began working with patient when he moved to fourth floor with good results Pt was cleared from Cardiology on 09/19 with plans to follow up as an outpatient with Dr Padilla for electrophysiology consult and potential ablation. Will also follow up with Dr Paiz and Dr Nicolas as an outpatient. Rx reviewed and sent to his pharmacy JOHN,BRANDEE Labs (last 24 hrs) Laboratory Tests 09/15/22 14:48: White Blood Count 15.2H, Red Blood Count 4.58, Hemoglobin 15.7, Hematocrit 46, Mean Corpuscular Volume 100H, Mean Corpuscular Hemoglobin 34, Mean Corpuscular Hemoglobin Concent 34, Red Cell Distribution Width 12.5, Platelet Count 280, Mean Platelet Volume 9.8, Immature Granulocyte % (Auto) 1, Neutrophils (%) (Auto) 85H, Lymphocytes (%) (Auto) 8L, Monocytes (%) (Auto) 6, Eosinophils (%) (Auto) 0, Basophils (%) (Auto) 0, Neutrophils # (Auto) 13.0H, Lymphocytes # (Auto) 1.3, Monocytes # (Auto) 0.9, Eosinophils # (Auto) 0.0, Basophils # (Auto) 0.0, Immature Granulocyte # (Auto) 0.1, Neutrophils % (Manual) 88, Lymphocytes % (Manual) 6, Monocytes % (Manual) 5, Band Neutrophils 1, Blood Morphology Comment NORMAL, Prothrombin Time 14.5, INR Comment 1.1, Activated Partial Thromboplast Time 37H, Sodium Level 139, Potassium Level 4.0, Chloride Level 92L, Carbon Dioxide Level 33H, Anion Gap 14, Blood Urea Nitrogen 19H, Creatinine 1.13, Estimat Glomerular Filtration Rate 72, BUN/Creatinine Ratio 17, Glucose Level 145H, Calcium Level 9.9, Corrected Calcium 9.5, Magnesium Level 2.0, Total Bilirubin 1.5H, Aspartate Amino Transf (AST/SGOT) 30, Alanine Aminotransferase (ALT/SGPT) 72H, Alkaline Phosphatase 59, Troponin I < 0.028, B-Type Natriuretic Peptide 123.2H, Total Protein 7.2, Albumin 4.5, Lipase 13, Digoxin Level 0.34L 09/16/22 03:50: White Blood Count 15.1H, Red Blood Count 4.09L, Hemoglobin 14.2, Hematocrit 42, Mean Corpuscular Volume 102H, Mean Corpuscular Hemoglobin 35H, Mean Corpuscular Hemoglobin Concent 34, Red Cell Distribution Width 12.8, Platelet Count 245, Mean Platelet Volume 9.9, Immature Granulocyte % (Auto) 1, Neutrophils (%) (Auto) 64, Lymphocytes (%) (Auto) 22, Monocytes (%) (Auto) 11, Eosinophils (%) (Auto) 1, Basophils (%) (Auto) 0, Neutrophils # (Auto) 9.7H, Lymphocytes # (Auto) 3.3, Monocytes # (Auto) 1.7H, Eosinophils # (Auto) 0.1, Basophils # (Auto) 0.1, Immature Granulocyte # (Auto) 0.1, Sodium Level 139, Potassium Level 3.8, Chloride Level 99, Carbon Dioxide Level 29, Anion Gap 11, Blood Urea Nitrogen 23H, Creatinine 1.06, Estimat Glomerular Filtration Rate 77, BUN/Creatinine Ratio 22, Glucose Level 103, Calcium Level 8.9, Corrected Calcium 9.0, Magnesium Level 2.1, Total Bilirubin 1.1H, Aspartate Amino Transf (AST/SGOT) 19, Alanine Aminotransferase (ALT/SGPT) 55, Alkaline Phosphatase 48, Troponin I < 0.028, B-Type Natriuretic Peptide 79.9, Total Protein 6.2L, Albumin 3.9, Digoxin Level 0.35L, Phosphorus Level 5.4H, Thyroid Stimulating Hormone (TSH) 1.20 09/17/22 03:40: White Blood Count 12.9H, Red Blood Count 4.20L, Hemoglobin 14.3, Hematocrit 43, Mean Corpuscular Volume 103H, Mean Corpuscular Hemoglobin 34, Mean Corpuscular Hemoglobin Concent 33, Red Cell Distribution Width 12.6, Platelet Count 195, Mean Platelet Volume 10.3, Immature Granulocyte % (Auto) 1, Neutrophils (%) (Auto) 73, Lymphocytes (%) (Auto) 14, Monocytes (%) (Auto) 10, Eosinophils (%) (Auto) 2, Basophils (%) (Auto) 1, Neutrophils # (Auto) 9.4H, Lymphocytes # (Auto) 1.8, Monocytes # (Auto) 1.4H, Eosinophils # (Auto) 0.2, Basophils # (Auto) 0.1, Immature Granulocyte # (Auto) 0.1, Sodium Level 137, Potassium Level 3.9, Chloride Level 98, Carbon Dioxide Level 27, Anion Gap 12, Blood Urea Nitrogen 16, Creatinine 0.83, Estimat Glomerular Filtration Rate 97, BUN/Creatinine Ratio 19, Glucose Level 94, Calcium Level 8.4L, Corrected Calcium 8.6, Magnesium Level 1.9, Total Bilirubin 1.7H, Aspartate Amino Transf (AST/SGOT) 27, Alanine Aminotransferase (ALT/SGPT) 54, Alkaline Phosphatase 54, Total Protein 6.0L, Albumin 3.8, Phosphorus Level 3.8 09/18/22 03:36: White Blood Count 12.7H, Red Blood Count 4.10L, Hemoglobin 14.3, Hematocrit 42, Mean Corpuscular Volume 102H, Mean Corpuscular Hemoglobin 35H, Mean Corpuscular Hemoglobin Concent 34, Red Cell Distribution Width 12.3, Platelet Count 195, Mean Platelet Volume 10.5, Immature Granulocyte % (Auto) 1, Neutrophils (%) (Auto) 75, Lymphocytes (%) (Auto) 12, Monocytes (%) (Auto) 11, Eosinophils (%) (Auto) 2, Basophils (%) (Auto) 0, Neutrophils # (Auto) 9.5H, Lymphocytes # (Auto) 1.5, Monocytes # (Auto) 1.5H, Eosinophils # (Auto) 0.2, Basophils # (Auto) 0.0, Immature Granulocyte # (Auto) 0.1, Sodium Level 138, Potassium Level 3.9, Chloride Level 97L, Carbon Dioxide Level 30, Anion Gap 11, Blood Urea Nitrogen 10, Creatinine 0.84, Estimat Glomerular Filtration Rate 96, BUN/Creatinine Ratio 12, Glucose Level 103, Calcium Level 8.5, Corrected Calcium 8.6, Magnesium Level 1.9, Total Bilirubin 1.6H, Aspartate Amino Transf (AST/SGOT) 22, Alanine Aminotransferase (ALT/SGPT) 44, Alkaline Phosphatase 59, Total Protein 6.3L, Albumin 3.9, Phosphorus Level 2.6 09/19/22 05:07: White Blood Count 11.5H, Red Blood Count 4.15L, Hemoglobin 14.1, Hematocrit 42, Mean Corpuscular Volume 102H, Mean Corpuscular Hemoglobin 34, Mean Corpuscular Hemoglobin Concent 33, Red Cell Distribution Width 12.3, Platelet Count 192, Mean Platelet Volume 9.7, Immature Granulocyte % (Auto) 1, Neutrophils (%) (Auto) 74, Lymphocytes (%) (Auto) 11L, Monocytes (%) (Auto) 11, Eosinophils (%) (Auto) 2, Basophils (%) (Auto) 0, Neutrophils # (Auto) 8.5H, Lymphocytes # (Auto) 1.3, Monocytes # (Auto) 1.3H, Eosinophils # (Auto) 0.3, Basophils # (Auto) 0.1, Immature Granulocyte # (Auto) 0.1, Sodium Level 139, Potassium Level 4.1, Chloride Level 96L, Carbon Dioxide Level 35H, Anion Gap 8, Blood Urea Nitrogen 9, Creatinine 0.83, Estimat Glomerular Filtration Rate 97, BUN/Creatinine Ratio 11, Glucose Level 105, Calcium Level 8.7, Corrected Calcium 8.9, Magnesium Level 2.1, Total Bilirubin 1.3H, Aspartate Amino Transf (AST/SGOT) 22, Alanine Aminotransferase (ALT/SGPT) 38, Alkaline Phosphatase 58, Total Protein 6.0L, Albumin 3.7 Microbiology 09/15/22 MRSA Screen - Final, Complete MRSA not isolated Pending Labs Microbiology Date/Time Source Procedure Growth Status 09/15/22 17:15 Nasal MRSA Screen - Final MRSA not isolated Complete Laboratory Tests 09/15/22 14:48: White Blood Count 15.2, Red Blood Count 4.58, Hemoglobin 15.7, Hematocrit 46, Mean Corpuscular Volume 100, Mean Corpuscular Hemoglobin 34, Mean Corpuscular Hemoglobin Concent 34, Red Cell Distribution Width 12.5, Platelet Count 280, Mean Platelet Volume 9.8, Immature Granulocyte % (Auto) 1, Neutrophils (%) (Auto) 85, Lymphocytes (%) (Auto) 8, Monocytes (%) (Auto) 6, Eosinophils (%) (Auto) 0, Basophils (%) (Auto) 0, Neutrophils # (Auto) 13.0, Lymphocytes # (Auto) 1.3, Monocytes # (Auto) 0.9, Eosinophils # (Auto) 0.0, Basophils # (Auto) 0.0, Immature Granulocyte # (Auto) 0.1, Neutrophils % (Manual) 88, Lymphocytes % (Manual) 6, Monocytes % (Manual) 5, Band Neutrophils 1, Blood Morphology Comment NORMAL, Prothrombin Time 14.5, INR Comment 1.1, Activated Partial Thromboplast Time 37, Sodium Level 139, Potassium Level 4.0, Chloride Level 92, Carbon Dioxide Level 33, Anion Gap 14, Blood Urea Nitrogen 19, Creatinine 1.13, Estimat Glomerular Filtration Rate 72, BUN/Creatinine Ratio 17, Glucose Level 145, Calcium Level 9.9, Corrected Calcium 9.5, Magnesium Level 2.0, Total Bilirubin 1.5, Aspartate Amino Transf (AST/SGOT) 30, Alanine Aminotransferase (ALT/SGPT) 72, Alkaline Phosphatase 59, Troponin I < 0.028, B-Type Natriuretic Peptide 123.2, Total Protein 7.2, Albumin 4.5, Lipase 13, Digoxin Level 0.34 09/16/22 03:50: White Blood Count 15.1, Red Blood Count 4.09, Hemoglobin 14.2, Hematocrit 42, Mean Corpuscular Volume 102, Mean Corpuscular Hemoglobin 35, Mean Corpuscular He moglobin Concent 34, Red Cell Distribution Width 12.8, Platelet Count 245, Mean Platelet Volume 9.9, Immature Granulocyte % (Auto) 1, Neutrophils (%) (Auto) 64, Lymphocytes (%) (Auto) 22, Monocytes (%) (Auto) 11, Eosinophils (%) (Auto) 1, Basophils (%) (Auto) 0, Neutrophils # (Auto) 9.7, Lymphocytes # (Auto) 3.3, Monocytes # (Auto) 1.7, Eosinophils # (Auto) 0.1, Basophils # (Auto) 0.1, Immature Granulocyte # (Auto) 0.1, Sodium Level 139, Potassium Level 3.8, Chloride Level 99, Carbon Dioxide Level 29, Anion Gap 11, Blood Urea Nitrogen 23, Creatinine 1.06, Estimat Glomerular Filtration Rate 77, BUN/Creatinine Ratio 22, Glucose Level 103, Calcium Level 8.9, Corrected Calcium 9.0, Magnesium Level 2.1, Total Bilirubin 1.1, Aspartate Amino Transf (AST/SGOT) 19, Alanine Aminotransferase (ALT/SGPT) 55, Alkaline Phosphatase 48, Troponin I < 0.028, B- Type Natriuretic Peptide 79.9, Total Protein 6.2, Albumin 3.9, Digoxin Level 0.35, Phosphorus Level 5.4, Thyroid Stimulating Hormone (TSH) 1.20 09/17/22 03:40: White Blood Count 12.9, Red Blood Count 4.20, Hemoglobin 14.3, Hematocrit 43, Mean Corpuscular Volume 103, Mean Corpuscular Hemoglobin 34, Mean Corpuscular Hemoglobin Concent 33, Red Cell Distribution Width 12.6, Platelet Count 195, Mean Platelet Volume 10.3, Immature Granulocyte % (Auto) 1, Neutrophils (%) (Auto) 73, Lymphocytes (%) (Auto) 14, Monocytes (%) (Auto) 10, Eosinophils (%) (Auto) 2, Basophils (%) (Auto) 1, Neutrophils # (Auto) 9.4, Lymphocytes # (Auto) 1.8, Monocytes # (Auto) 1.4, Eosinophils # (Auto) 0.2, Basophils # (Auto) 0.1, Immature Granulocyte # (Auto) 0.1, Sodium Level 137, Potassium Level 3.9, Chloride Level 98, Carbon Dioxide Level 27, Anion Gap 12, Blood Urea Nitrogen 16, Creatinine 0.83, Estimat Glomerular Filtration Rate 97, BUN/Creatinine Ratio 19, Glucose Level 94, Calcium Level 8.4, Corrected Calcium 8.6, Magnesium Level 1.9, Total Bilirubin 1.7, Aspartate Amino Transf (AST/SGOT) 27, Alanine Aminotransferase (ALT/SGPT) 54, Alkaline Phosphatase 54, Total Protein 6.0, [place] min 3.8, Phosphorus Level 3.8 09/18/22 03:36: White Blood Count 12.7, Red Blood Count 4.10, Hemoglobin 14.3, Hematocrit 42, Mean Corpuscular Volume 102, Mean Corpuscular Hemoglobin 35, Mean Corpuscular Hemoglobin Concent 34, Red Cell Distribution Width 12.3, Platelet Count 195, Mean Platelet Volume 10.5, Immature Granulocyte % (Auto) 1, Neutrophils (%) (Auto) 75, Lymphocytes (%) (Auto) 12, Monocytes (%) (Auto) 11, Eosinophils (%) (Auto) 2, Basophils (%) (Auto) 0, Neutrophils # (Auto) 9.5, Lymphocytes # (Auto) 1.5, Monocytes # (Auto) 1.5, Eosinophils # (Auto) 0.2, Basophils # (Auto) 0.0, Immature Granulocyte # (Auto) 0.1, Sodium Level 138, Potassium Level 3.9, Chloride Level 97, Carbon Dioxide Level 30, Anion Gap 11, Blood Urea Nitrogen 1 0, Creatinine 0.84, Estimat Glomerular Filtration Rate 96, BUN/Creatinine Ratio 12, Glucose Level 103, Calcium Level 8.5, Corrected Calcium 8.6, Magnesium Level 1.9, Total Bilirubin 1.6, Aspartate Amino Transf (AST/SGOT) 22, Alanine Aminotransferase (ALT/SGPT) 44, Alkaline Phosphatase 59, Total Protein 6.3, Albumin 3.9, Phosphorus Level 2.6 09/19/22 05:07: White Blood Count 11.5, Red Blood Count 4.15, Hemoglobin 14.1, Hematocrit 42, Mean Corpuscular Volume 102, Mean Corpuscular Hemoglobin 34, Mean Corpuscular Hemoglobin Concent 33, Red Cell Distribution Width 12.3, Platelet Count 192, Mean Platelet Volume 9.7, Immature Granulocyte % (Auto) 1, Neutrophils (%) (Auto) 74, Lymphocytes (%) (Auto) 11, Monocytes (%) (Auto) 11, Eosinophils (%) ( Auto) 2, Basophils (%) (Auto) 0, Neutrophils # (Auto) 8.5, Lymphocytes # (Auto) 1.3, Monocytes # (Auto) 1.3, Eosinophils # (Auto) 0.3, Basophils # (Auto) 0.1, Immature Granulocyte # (Auto) 0.1, Sodium Level 139, Potassium Level 4.1, Chloride Level 96, Carbon Dioxide Level 35, Anion Gap 8, Blood Urea Nitrogen 9, Creatinine 0.83, Estimat Glomerular Filtration Rate 97, BUN/Creatinine Ratio 11, Glucose Level 105, Calcium Level 8.7, Corrected Calcium 8.9, Magnesium Level 2.1, Total Bilirubin 1.3, Aspartate Amino Transf (AST/SGOT) 22, Alanine Aminotransferase (ALT/SGPT) 38, Alkaline Phosphatase 58, Total Protein 6.0, Albumin 3.7 Discharge Home Medications: Active Scripts Active Diltiazem 24Hr ER (Diltiazem HCl) 240 Mg Cap.er.24h 240 Mg PO DAILY Amiodarone HCl 200 Mg Tablet 200 Mg PO UD Take 2 tablet twice daily Eliquis (Apixaban) 5 Mg Tablet 5 Mg PO BID Reported Albuterol Sulfate 2.5 Mg/0.5 Ml Vial.neb 2.5 Mg INH Q4H PRN Eliquis (Apixaban) 5 Mg Tablet 5 Mg PO BID Prednisone 10 Mg Tab Mg PO DAILY FILLED 09-09-2022 #64/25 DAY SUPPLY TAPER DIRECTIONS: 6 TABS ONCE DAILY X 3 DAYS AND DECREASE BY 1 TAB EVERY 3 DAYS (6,6,6,5,5,5,4,4,4,3,3,3,2,2,2,1,1,1) THEN TAB DAILY X 7 DAYS Digoxin 250 Mcg (0.25 Mg) Tablet 250 Mcg PO 1800 Emergen-C 1,000 mg Packet (Ascorbic Acid/Multivit-Min) 1,000 Mg Effpowdpkt 1,000 Mg PO DAILY Ventolin Hfa (Albuterol Sulfate) 1 Puff Puff 2 Puff INH Q6H PRN Instructions to patient/family Please see electronic discharge instructions given to patient. TABATHA JOHNSON DO Sep 19, 2022 11:24
--- NOTE | 2022-09-19 12:34 | Cardiology Progress Note ---
Subjective Date Seen by Provider: Sep 19, 2022 Time Seen by Provider: 12:33 Subjective/Events-last exam Patient was feeling better. No new complaint Review of Systems General: No Chills, No Night Sweats, No Fatigue, No Malaise, No Appetite, No Other HEENT: No Head Aches, No Visual Changes, No Eye Pain, No Ear Pain, No Dysphasia, No Sinus Congestion, No Post Nasal Drip, No Sore Throat, No Other Pulmonary: No Dyspnea, No Cough, No Pleuritic Chest Pain, No Other Cardiovascular: No: Chest Pain, Palpitations, Orthopnea, Paroxysmal Noc. Dyspnea, Edema, Lt Headedness, Other Objective-Cardiology Exam Last Set of Vital Signs Vital Signs 09/15/22 09/19/22 17:07 11:17 Temp 37.0 Pulse 66 Resp 20 B/P (MAP) 139/75 (96) Pulse Ox 94 O2 Delivery High Flow N/C O2 Flow Rate 2.00 FiO2 21 I&O Intake and Output 09/19/22 00:00 Intake Total 2470 ml Balance 2470 ml Intake Oral 2470 ml # Voids 9 # Bowel Movements 1 General: Alert, Oriented X3, Cooperative HEENT: EOMI Neck: Supple Lungs: Clear to Auscultation, Normal Air Movement Heart: Regular Rate, Normal S1, Normal S2, No Murmurs Abdomen: Soft, No Tenderness Extremities: No Cyanosis, No Edema Skin: No Rashes, No Breakdown, No Significant Lesion Neuro: Normal Speech Psych/Mental Status: Mental Status NL, Mood NL Results Lab Laboratory Tests 09/19/22 05:07 A/P-Cardiology Admission Diagnosis Atrial fibrillation Atrial flutter COPD Shortness of breath Assessment/Plan Atrial fibrillation with rapid ventricular response Did not respond to Cardizem drip or esmolol drip Received digoxin Having soft blood pressure, started on amiodarone bolus and a drip Converted to sinus rhythm. Continue on amiodarone and follow-up as an outpatient Arrange for evaluation with Dr. Padilla for possible EP study and ablation History of atrial flutter, had ablation done by Dr. Padilla in May 2015. Congestive heart failure, history of nonischemic cardiomyopathy with ejection fraction 20% on DARSHANA in May 2015. Patient reported resolution of the heart failure after the atrial flutter ablation. Shortness of breath, worsening recently, probably secondary to underlying COPD and to the atrial fibrillation History of sleep apnea, CPAP was advised. Noncompliant. CT of the chest in August 2022 reported as right lower lobe mass for the past 5 years, minimal increase in size from 2017 Patient is scheduled to see 's case water. Hypertension, monitor blood pressure Hyperlipidemia, monitor lipids BJORN HEART MD Sep 19, 2022 12:34
--- NOTE | 2022-09-19 13:55 | Progress Note ---
BRANDEE LOPEZ 09/19/22 1355: Progress Note Edward Garcia is a 66M who presented to the ER on 09/15. Past medical Hx of HTN, HLD, and aflutter s/p ablation in 2014. HPI from ER "66-year-old male with past medical history of a flutter status post ablation, recent diagnosis of A-fib now on Eliquis, diltiazem, and digoxin via Dr. Hughes coming in due to concerns for A-fib with RVR. He was in here earlier for an echo, they put him on the monitor, and referred him to the ER because his heart rate was elevated. He states that he does feel palpitations, and feels short of breath with it. Mild chest discomfort with it as well. He states he was diagnosed with A-fib [address] Hughes's office and he started him on all those new medications which she has been taking. Last had a flutter in 2015 which was fixed with the ablation, and as far as he knows he is never been in A- fib before. Has had an upper respiratory infection and is finishing some antibiotics and steroids at this time. Does have COPD as well and continues to smoke." In the ER he was given diltiazem. Cardiac workup was negative. Cadiology was consulted as well as Dr Nicolas for admission to the ICU. HPI from admission "Pt is a 66 y/o male who is known to me from clinic. He has hx of atrial flutter status post ablation, recent diagnosis of A-fib now on Eliquis, diltiazem, and digoxin via Dr. Carty as of 09/13/22. Pt presented to the hospital after having an ECHO which showed concerns for A-fib with RVR. He states that he does feel palpitations, and feels short of breath with it. Mild chest discomfort with it as well. He has COPD and continues to smoke daily." Rate control was attempted with diltiazem, amiodarone, and digoxin. Patient failed rate control with esmolol drip and cardizem drip. Cardioversion with Dr Paiz on 09/16. Went into sinus rhythm. Eventually reverted to afib. Cardioversion again on 09/16 Echo on 09/16 showed atrial dilation with no evidence of clot in the L atrial appendage. Rate control continued to be managed by cardiology, converted to sinus rhythm Anticoagulated with apixaban during his hospitalization Electrolytes replaced as needed Leukocytosis resolved with declining values each progressive day Pt also treated for COPD exacerbation with nebulized treatments and steroids. Required oxygen by nasal cannula during his stay that was eventually DCed before discharge Pt moved from ICU to 4th floor on 09/18 On 09/18 and 09/19 Dr Nicolas was ill so Dr Johnson covered her service in the hospital PT/OT began working with patient when he moved to fourth floor with good results Pt was cleared from Cardiology on 09/19 with plans to follow up as an outpatient with Dr Padilla for electrophysiology consult and potential ablation. Will also follow up with Dr Paiz and Dr Nicolas as an outpatient. Rx reviewed and sent to his pharmacy MADIE JOHNSON DO 09/20/22 0819: Supervisory-Addendum Brief Verification & Attestation Participated in pt care: history, MDM, physical Personally performed: exam, history, MDM, supervision of care Care discussed with: Medical Student Procedures: n/a Results interpretation: Verified all documentation Verification and Attestation of Medical Student E/M Service A medical student performed and documented this service in my presence. I reviewed and verified all information documented by the medical student and made modifications to such information, when appropriate. I personally performed the physical exam and medical decision making. Madie Johnson, Sep 20, 2022,08:19 BRANDEE LOPEZ Sep 19, 2022 13:55 MADIE JHONSON DO Sep 20, 2022 08:19
== END 2022-09-19 13:14 | disposition home or self-care (01) | DRG 308 ==
LOC: EDUNIT# 14:18 → ER 14:20 → ICU 15:49 → 4TH 09-18 15:45
PROVIDERS: ADMIT Family Medicine; ATTEND Internal Medicine
PROC: 5A2204Z Restoration of Cardiac Rhythm, Single (ICD-10-PCS; principal; 2022-09-16)
PROC: 5A0935A Assistance with Respiratory Ventilation, Less than 24 Consecutive Hours, High Flow/Velocity Cannula (ICD-10-PCS; 2022-09-18)
DX: I48.91 Unspecified atrial fibrillation (principal); J96.01 Acute respiratory failure with hypoxia; J44.1 Chronic obstructive pulmonary disease with (acute) exacerbation; D72.829 Elevated white blood cell count, unspecified; I48.92 Unspecified atrial flutter; Z79.899 Other long term (current) drug therapy; F17.210 Nicotine dependence, cigarettes, uncomplicated; Z79.01 Long term (current) use of anticoagulants; M10.9 Gout, unspecified; I50.9 Heart failure, unspecified; I42.8 Other cardiomyopathies; I11.0 Hypertensive heart disease with heart failure
CPT/HCPCS: 36415; 71045; 80053; 80162; 83690; 83735; 83880; 84100; 84443; 84484; 85007; 85025; 85027; 85610; 85730; 87081; 93005; 93041; 94640; 94760

== ENCOUNTER → 2022-09-15 | Outpatient (CLI) | payer MEDICARE, OTHER ==
[~2022-09-15] MED LIST changes: +ALB0.5V INH; +AMIO200T65 PO; +APIX5TAB PO; +DIGO250T3 PO; +DILT180C85 PO; +DILT240C91 PO; +PRD10T PO
== END ==
LOC: CARD 13:50
PROVIDERS: ATTEND Internal Medicine Cardiovascular Disease
DX: I48.0 Paroxysmal atrial fibrillation (principal)

== ENCOUNTER → 2022-10-09 | Outpatient (CLI) | payer MEDICARE, OTHER ==
[~2022-10-09] MED LIST changes: +ALB0.5V INH; +AMIO200T65 PO; +APIX5TAB PO; +DIGO250T3 PO; +DILT180C85 PO; +DILT240C91 PO; +PRD10T PO
== END ==
LOC: CARD 14:06
PROVIDERS: ATTEND Internal Medicine Cardiovascular Disease
DX: I51.7 Cardiomegaly (principal)
CPT/HCPCS: 93306

== ENCOUNTER 2022-11-06 07:23 | Emergency (ER) | payer MEDICARE, OTHER ==
[~2022-11-06] VITALS: Ht 180.3 cm; Wt 95.7 kg
[2022-11-06] MEDS ORDERED: SUCCINYLCHOLINE INJ 20 MG/1 ML 10 ML VIAL INJ ONE (07:26)
[2022-11-06] MEDS ORDERED: SODIUM BICARB 8.4% 50 MEQ/50 ML (ABBOTT) SYR INJ ONE (07:26)
[2022-11-06] MEDS ORDERED: fentaNYL INJ 100 MCG/2 ML AMP IV ONE (07:26)
[2022-11-06] MEDS ORDERED: MIDAZOLAM 5 MG/5 ML (VERSED) VIAL IJ ONE (07:26)
[2022-11-06] MEDS ORDERED: EPINEPHrine 0.1 MG/ML 10 ML (HOSPIRA) SYR INJ ONE (07:26)
[2022-11-06] MEDS ORDERED: KETAMINE 50 MG/ML 10 ML VIAL IJ ONE (07:26)
--- NOTE | 2022-11-06 07:38 | ED Respiratory ---
General Chief Complaint: Respiratory Problems Stated Complaint: SOA Nursing Triage Note: PT BROUGHT IN BY [facility] FROM HOME WITH COMPLAINT OF SOA. STATES SYMPTOMS STARTED 3 WEEKS AGO AND WORSENED OVER THE LAST FEW DAYS. HX OF COPD. Source: patient, EMS, old records Exam Limitations: no limitations History of Present Illness Date Seen by Provider: Nov 06, 2022 Time Seen by Provider: 07:25 Initial Comments 66-year-old male with past medical history of COPD on home oxygen, pAfib (on Eliquis, amiodarone, digoxin, diltiazem), hypertension coming in via EMS from home due to shortness of breath. He states its been getting worse over the past week and a half. He has a cough, not bringing much up. Denies any fever, chest pain, palpitations, focal weakness or numbness, nausea, vomiting, rash, or any other concerns. He has been using his albuterol which helps. He also notes his heart rates been in the high 50s since his most recent discharge with A-fib. At that time he was placed on amiodarone, diltiazem, and digoxin. 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 Allergies and Home Medications Allergies Coded Allergies: NATALY Inhibitors (Verified Allergy, Unknown, 08/12/19) angioedema Patient Home Medication List Home Medication List Reviewed: Yes Albuterol Sulfate (Ventolin Hfa) 1 Puff Puff, 2 PUFF INH Q6H PRN for SHORTNESS OF BREATH, (Reported) Entered as Reported by: CARLO CHOE on 07/16/17 0753 Albuterol Sulfate (Albuterol Sulfate) 2.5 Mg/0.5 Ml Vial.neb, 2.5 MG INH Q4H PRN for SHORTNESS OF BREATH, (Reported) Entered as Reported by: YAMILE KRUSE on 09/16/22 1136 Amiodarone HCl (Amiodarone HCl) 200 Mg Tablet, 200 MG PO UD Prescribed by: BJORN HEART on 09/19/22 1112 Apixaban (Eliquis) 5 Mg Tablet, 5 MG PO BID, (Reported) Entered as Reported by: YAMILE KRUSE on 09/16/22 1136 Apixaban (Eliquis) 5 Mg Tablet, 5 MG PO BID Prescribed by: BJORN HEART on 09/19/22 1112 Ascorbic Acid/Multivit-Min (Emergen-C 1,000 mg Packet) 1,000 Mg Effpowdpkt, 1,000 MG PO DAILY, (Reported) Entered as Reported by: CARLO CHOE on 07/16/17 0906 Digoxin (Digoxin) 250 Mcg (0.25 Mg) Tablet, 250 MCG PO 1800, (Reported) Entered as Reported by: YAMILE KRUSE on 09/16/22 1126 Diltiazem HCl (Diltiazem 24Hr ER) 240 Mg Cap.er.24h, 240 MG PO DAILY Prescribed by: TABATHA JOHNSON on 09/19/22 1124 Prednisone (Prednisone) 10 Mg Tab, MG PO DAILY, (Reported) Entered as Reported by: YAMILE KRUSE on 09/16/22 1126 Review of Systems Review of Systems Constitutional: No fever EENTM: no symptoms reported Respiratory: see HPI Cardiovascular: see HPI Gastrointestinal: no symptoms reported Genitourinary: no symptoms reported Musculoskeletal: no symptoms reported Skin: no symptoms reported Psychiatric/Neurological: No Symptoms Reported Hematologic/Lymphatic: No Symptoms Reported Immunological/Allergic: no symptoms reported Past Fadgezz-Yhbafv-Gxipmu Hx Patient Social History Tobacco Use?: No Smoking Status: Former Smoker Use of E-Cig and/or Vaping dev: No Substance use?: No Alcohol Use?: Yes Alcohol Frequency: Once in a while Pt feels they are or have been: No Immunizations Up To Date Tetanus Booster (TDap): Less than 5yrs First/Initial COVID19 Vaccinat: PHIZER Second COVID19 Vaccination Viktor: PHIZER Third COVID19 Vaccination Date: KENNYZER Seasonal Allergies Seasonal Allergies: No Past Medical History Surgeries: Yes (CARDIAC ABLATION; ROTATOR CUFF REPAIR ) Cardiac, Orthopedic Respiratory: Yes Pneumonia, Sleep Apnea, COPD Currently Using CPAP: No (DOESN'T WEAR) Cardiac: Yes (CARDIAC ABLATION) Atrial Fibrillation, Hypertension Neurological: No Reproductive Disorders: No Sexually Transmitted Disease: No HIV/AIDS: No Genitourinary: No Gastrointestinal: No Musculoskeletal: Yes (ROTATOR CUFF SURGERY LAST YEAR) Gout Endocrine: No HEENT: No Loss of Vision: Denies Cancer: No Psychosocial: No Integumentary: No Blood Disorders: No Adverse Reaction/Blood Tranf: No Family Medical History Cardiovascular disease G8 BROTHER Hypertension G8 BROTHER Heart Disease, Diabetes, Hypertension Physical Exam Vital Signs - First Documented 11/06/22 11/06/22 07:25 10:39 Temp 35.6 Pulse 56 Resp 22 B/P (MAP) 143/84 (103) Pulse Ox 93 O2 Delivery Nasal Cannula O2 Flow Rate 3.00 FiO2 80 Capillary Refill : Height: 5'10.00" Weight: 211lbs. 3.0oz. 95.172898ds; 29.00 BMI Method:Stated General Appearance: WD/WN, mild distress HEENT: PERRL/EOMI, normal ENT inspection, pharynx normal Neck: non-tender, full range of motion, supple, normal inspection Respiratory: chest non-tender, no accessory muscle use, crackles, wheezing Cardiovascular: normal peripheral pulses, bradycardia Gastrointestinal: normal bowel sounds, non tender, soft; No distended, No guarding, No rebound Extremities: normal range of motion, non-tender, no calf tenderness, normal capillary refill, pedal edema Neurologic/Psychiatric: no motor/sensory deficits, alert, normal mood/affect Skin: normal color, warm/dry Procedures/Interventions Date of ETT Placement: Nov 06, 2022 Intubation Method: orotracheal Tube Size: 7.5 Positive End Tide CO2: Yes Breath Sounds after Intubation: bilateral-equal Post Intubation Xray: Yes Patient was intubated during CPR with video laryngoscopy. He did have a swollen tongue which made it difficult to pass the tube. Initial tube placed at roughly 25 at the lip. There was bilateral breath sounds, but end-tidal CO2 was not great, it was difficult to say if this was from the patient actively being coded or tube placement. I then replaced the video scope to visualize again, the ET tube was in the correct place. There was an air leak, and concern was for potential balloon malfunction. At this point we replaced the ET tube over a michelle gie with again direct visual visualization. At this point we had good end-tidal CO2. Chest x-ray was obtained after ROSC with good ET tube placement. CPR: PEA arrest Rhythm: Sinus Bradycardia Multiple rounds of compressions with epinephrine were given. Patient intubated. With the initial ROSC, he was given ketamine which would theoretically help with COPD as well as sedation since he was intubated. Patient then coded again. ROSC was obtained each time he coded. With the final ROSC the patient had gagging on the ET tube. He was then given Versed and fentanyl. Progress/Results/Core Measures Suspected Sepsis SIRS Temperature: Pulse: 56 Respiratory Rate: 22 Laboratory Tests 11/06/22 07:37: White Blood Count 10.1 Blood Pressure 143 /84 Mean: 103 Laboratory Tests 11/06/22 07:37: Creatinine 0.99, Platelet Count 188, Total Bilirubin 1.6H Results/Orders Lab Results Laboratory Tests Test 11/06/22 07:37 11/06/22 08:35 11/06/22 08:55 11/06/22 10:09 Range/Units White Blood Count 10.1 4.3-11.0 10^3/uL Red Blood Count 4.40 4.30-5.52 10^6/uL Hemoglobin 15.0 13.3-17.7 g/dL Hematocrit 44 40-54 % Mean Corpuscular Volume 99 80-99 fL Mean Corpuscular Hemoglobin 34 25-34 pg Mean Corpuscular Hemoglobin Concent 34 32-36 g/dL Red Cell Distribution Width 12.5 10.0-14.5 % Platelet Count 188 130-400 10^3/uL Mean Platelet Volume 9.5 9.0-12.2 fL Immature Granulocyte % (Auto) 0 % Neutrophils (%) (Auto) 70 42-75 % Lymphocytes (%) (Auto) 13 12-44 % Monocytes (%) (Auto) 10 0-12 % Eosinophils (%) (Auto) 6 0-10 % Basophils (%) (Auto) 1 0-10 % Neutrophils # (Auto) 7.0 1.8-7.8 10^3/uL Lymphocytes # (Auto) 1.3 1.0-4.0 10^3/uL Monocytes # (Auto) 1.0 0.0-1.0 10^3/uL Eosinophils # (Auto) 0.6 H 0.0-0.3 10^3/uL Basophils # (Auto) 0.1 0.0-0.1 10^3/uL Immature Granulocyte # (Auto) 0.0 0.0-0.1 10^3/uL Neutrophils % (Manual) 76 % Lymphocytes % (Manual) 6 % Monocytes % (Manual) 11 % Eosinophils % (Manual) 6 % Basophils % (Manual) 1 % Band Neutrophils 0 % Percent Immature Platelet Fraction 0.0-7.6 % Polychromasia Blood Morphology Comment NORMAL Sodium Level 139 135-145 MMOL/L Potassium Level 4.3 3.6-5.0 MMOL/L Chloride Level 96 L 98-107 MMOL/L Carbon Dioxide Level 34 H 21-32 MMOL/L Anion Gap 9 5-14 MMOL/L Blood Urea Nitrogen 7 7-18 MG/DL Creatinine 0.99 0.60-1.30 MG/DL Estimat Glomerular Filtration Rate 84 BUN/Creatinine Ratio 7 Glucose Level 101 70-105 MG/DL Calcium Level 9.0 8.5-10.1 MG/DL Total Bilirubin 1.6 H 0.1-1.0 MG/DL Direct Bilirubin 0.5 H 0.0-0.3 MG/DL Indirect Bilirubin 1.1 MG/DL Aspartate Amino Transf (AST/SGOT) 20 5-34 U/L Alanine Aminotransferase (ALT/SGPT) 22 0-55 U/L Alkaline Phosphatase 66 40-136 U/L Troponin I < 0.028 <0.028 NG/ML B-Type Natriuretic Peptide 12.7 <100.0 PG/ML Total Protein 6.9 6.4-8.2 GM/DL Albumin 4.3 3.2-4.5 GM/DL Smear Scan Blood Gas Puncture Site LEFT RADIAL Blood Gas Patient Temperature 35.6 Arterial Blood pH 6.99 *L 7.37-7.43 Arterial Blood Partial Pressure CO2 119 *H 35-45 MMHG Arterial Blood Partial Pressure O2 213 H 79-93 MMHG Arterial Blood HCO3 28 H 23-27 MMOL/L Arterial Blood Total CO2 32.3 H 21.0-31.0 MMOL/L Arterial Blood Oxygen Saturation 99 94-100 % Arterial Blood Base Excess -2.7 L -2.5-2.5 MMOL/L Axel Test YES-POS Blood Gas Ventilator Setting YES Blood Gas Inspired Oxygen 100 Urine Color YELLOW Urine Clarity CLEAR Urine pH 7.0 5-9 Urine Specific [place] 1.010 L 1.016-1.022 Urine Protein 2+ H NEGATIVE Urine Glucose (UA) NEGATIVE NEGATIVE Urine Ketones NEGATIVE NEGATIVE Urine Nitrite NEGATIVE NEGATIVE Urine Bilirubin NEGATIVE NEGATIVE Urine Urobilinogen 0.2 < = 1.0 MG/DL Urine Leukocyte Esterase NEGATIVE NEGATIVE Urine RBC (Auto) 1+ H NEGATIVE Urine RBC 2-5 H /HPF Urine WBC 0-2 /HPF Urine Crystals NONE /LPF Urine Bacteria TRACE /HPF Urine Casts NONE /LPF Urine Mucus NEGATIVE /LPF Urine Other LG SPERM H /HPF Urine Culture Indicated NO Venous Blood pH 7.21 L 7.31-7.41 Venous Blood Partial Pressure CO2 75 H 40-52 MMHG Venous Blood HCO3 29 H 22-28 MMOL/L Test 11/06/22 12:24 Range/Units Blood Gas Puncture Site LEFT RAD Blood Gas Patient Temperature 35.6 Arterial Blood pH 7.16 *L 7.37-7.43 Arterial Blood Partial Pressure CO2 99 *H 35-45 MMHG Arterial Blood Partial Pressure O2 334 H 79-93 MMHG Arterial Blood HCO3 35 H 23-27 MMOL/L Arterial Blood Total CO2 38.2 H 21.0-31.0 MMOL/L Arterial Blood Oxygen Saturation 100 94-100 % Arterial Blood Base Excess 6.3 H -2.5-2.5 MMOL/L Axel Test YES-POS Blood Gas Ventilator Setting YES Blood Gas Inspired Oxygen 80 My Orders Orders - GADIEL CELESTE MD [facility] [place] (11/06/22 07:32) Troponin I [place] (11/06/22 07:32) Monitor-Rhythm Ecg Trace Only (11/06/22 07:32) Pulse Oximetry Order (11/06/22 07:32) Rt Request For Service (11/06/22 07:32) Methylprednisolone Sod Succ (Solu-Medrol (11/06/22 07:45) Albuterol/Ipra Inhalation Soln (Duoneb I (11/06/22 07:45) Ceftriaxone 1 Gm Pre-Mix (Rocephin 1 Gm (11/06/22 07:45) Sputum Culture (11/06/22 07:32) Cbc And Manual Diff (11/06/22 07:32) Basic Metabolic Panel (11/06/22 07:32) Liver Panel (11/06/22 07:32) Ekg Tracing (11/06/22 07:32) Doxycycline Hyclate Tablet (Vibramycin T (11/06/22 07:45) Chest 1 View, Ap/Pa Only (11/06/22 07:32) Furosemide Injection (Lasix Injection) (11/06/22 07:45) Albuterol/Ipra Inhalation Soln (Duoneb I (11/06/22 07:57) Ns Iv 1000 Ml (Sodium Chloride 0.9%) (11/06/22 07:57) Epinephrine (Pyxis Drip Kit) (Epinephrin (11/06/22 08:23) Ns (Ivpb) (Sodium Chloride 0.9%) (11/06/22 08:23) Albuterol/Ipra Inhalation Soln (Duoneb I (11/06/22 08:34) Arterial Blood Gas (11/06/22 08:37) Chest 1 View, Ap/Pa Only (11/06/22 08:43) Ct Angio Chest W (R/O Pe) (11/06/22 08:48) Ekg Tracing (11/06/22 08:48) Albuterol Pre-Mix Nebs (Rt) (Proventil (11/06/22 09:11) Ns Iv 1000 Ml (Sodium Chloride 0.9%) (11/06/22 09:30) Ns (Ivpb) (Sodium C... W/Epinephrine 1 (11/06/22 09:33) Venous Blood Gas (11/06/22 09:38) Ct Head Wo (11/06/22 09:38) Iohexol Injection (Omnipaque 350 Mg/Ml 1 (11/06/22 10:00) Received Contrast (Hold Metformin- Contr (11/06/22 10:00) Ns (Ivpb) (Sodium Chloride 0.9% Ivpb Bag (11/06/22 10:00) Ua Culture If Indicated (11/06/22 09:58) Albuterol Pre-Mix Nebs (Rt) (Proventil (11/06/22 09:10) Svn Small Volume Nebulizer (11/06/22 10:06) Propofol Drip (Icu) (Diprivan Drip (Icu) (11/06/22 12:02) Propofol Drip (Icu) (Diprivan Drip (Icu) (11/06/22 12:04) Arterial Blood Gas (11/06/22 12:26) Arterial Blood Draw - Obtain (11/06/22 ) Medications Given in ED Current Medications Medications Dose Ordered Sig/Sourav Route Start Time Stop Time Status Last Admin Dose Admin Albuterol Sulfate 10 mg ONCE ONCE INH 11/06/22 09:10 11/06/22 10:08 DC 11/06/22 09:12 10 MG Albuterol/ Ipratropium 3 ml ONCE ONCE IH 11/06/22 07:45 11/06/22 07:46 DC 11/06/22 07:50 3 ML Albuterol/ Ipratropium 3 ml STK-MED ONCE .ROUTE 11/06/22 07:57 11/06/22 08:01 DC 11/06/22 08:00 3 ML Albuterol/ Ipratropium 3 ml STK-MED ONCE .ROUTE 11/06/22 08:34 11/06/22 08:37 DC 11/06/22 09:54 3 ML Ceftriaxone Sodium/Dextrose 50 ml @ 100 mls/hr ONCE ONCE IV 11/06/22 07:45 11/06/22 08:14 DC 11/06/22 07:46 100 MLS/HR Doxycycline Hyclate 100 mg ONCE ONCE PO 11/06/22 07:45 11/06/22 07:46 DC 11/06/22 07:46 100 MG Furosemide 20 mg ONCE ONCE IVP 11/06/22 07:45 11/06/22 07:46 DC 11/06/22 07:46 20 MG Iohexol 100 ml ONCE ONCE IV 11/06/22 10:00 11/06/22 10:01 DC 11/06/22 10:34 75 ML Methylprednisolone Sodium Succinate 60 mg ONCE ONCE IV 11/06/22 07:45 11/06/22 07:46 DC 11/06/22 07:45 60 MG Sodium Chloride 100 ml ONCE ONCE IV 11/06/22 10:00 11/06/22 10:01 DC 11/06/22 10:34 80 ML Vital Signs/I&O 11/06/22 11/06/22 11/06/22 11/06/22 07:25 07:25 08:30 10:39 Temp 35.6 Pulse 56 42 53 Resp 22 25 B/P (MAP) 143/84 (103) Pulse Ox 93 100 O2 Delivery Nasal Cannula Nasal Cannula O2 Flow Rate 3.00 3.00 FiO2 80 11/06/22 11/06/22 11/06/22 11:29 12:10 13:34 Pulse 53 B/P (MAP) 163/71 O2 Delivery Mechanical Ventilator FiO2 40 Capillary Refill : Blood Pressure Mean: 103 Progress Note : Progress Note 66-year-old male with above history coming in due to respiratory issues. His oxygen saturation was in the high 90s on the 5 L on arrival. Given his history of COPD, oxygen turned down to roughly 3 L with a goal around 90 to 92% oxygen saturation. He was wheezing and did have some minimal crackles on exam, slightly increased work of breathing, but did appear similar to when I have had him as a patient in the past. He had very trace lower extremity edema with no clinical signs of a DVT. COPD management started with an IV placed, basic labs obtained, ceftriaxone and doxycycline ordered as well as steroids. 20 mg of IV Lasix also ordered to help with any fluid he potentially has around his lungs. I was then called to the room shortly after this, patient stating he is not feeling well, at this point he was tripoding, breathing rapidly, when I listen to his lungs he was not moving a lot of air. Immediately went to grab BiPAP, by the time the BiPAP machine was in the room, less than 15 seconds from this initial evaluation, the patient was unresponsive. ACLS was then initiated, the patient was intubated. ET tube had an air leak, balloon malfunction, it was replaced. Highest on my differential would be severe COPD exacerbation versus anaphylaxis from the ceftriaxone (it was running when this event occurred) versus PE. Patient significantly improved with inline DuoNeb with his ventilator pointing more towards COPD. I did a [id number] ultrasound at that time, I was not seeing any concerns for pneumothorax, he had good lung sliding bilaterally. CTA chest obtained showing no pulmonary embolus, no obvious opacities, no pneumothorax. No sedation has been given since shortly after his most recent ROSC, I am concerned with his mental status. Pupils are 4 mm and very sluggish. Patient initially with no responses other than a gag reflex. On reassessment, the patient opened his eyes spontaneously, and was moving all 4 extremities spontaneously. Pupils were still sluggish. His initial blood gas was 6.99 with improvement to around 7.2. We did titrate his ventilator to help get rid of more CO2. Contacted multiple facilities for transfer given likely need for neurology as well as pulmonology which we do not have at our facility. The patient was accepted to [facility] by Dr. Dallas. ECG Initial ECG Impression Date: Nov 06, 2022 Initial ECG Impression Time: 07:40 Initial ECG Rate: 53 Initial ECG Rhythm: S.Edy Comment Narrow QRS, left axis deviation, baseline wander, but accounting for that no significant ST changes EKG : Rate: 0906 Rhythm: S.Edy Comment Widened QRS compared to prior with now left bundle branch block, no STEMI Diagnostic Imaging Diagonstic Imaging: CT (Cta CHEST, CT head) Comments NAME: JUSTUS NORIEGA [facility] REC#: [id number] PT STATUS: REG ER : 1955 PHYSICIAN: GADIEL CELESTE MD ADMIT DATE: 11/06/22/ER Draft Date of Exam:11/06/22 CT ANGIO CHEST W (R/O PE) INDICATION: Shortness of air. The ET tube has the tip above the james. NG tube passes into the stomach. Evaluation of the pulmonary arterial system is without evidence of thromboembolism. No filling defects are seen within central, lobar or segmental branches. Thoracic aorta is normal caliber. There is no dissection. No pericardial or pleural fluid is identified. There is a pulmonary nodule in the right lower lobe measuring 9 mm. There is some minimal atelectasis in the posterior right lower lobe. Minimal subsegmental atelectasis left upper lobe is seen. Otherwise lungs are clear. Upper abdomen is unremarkable. IMPRESSION: 1. No evidence of pulmonary embolism or acute aortic disease. 2. Stable right lower lobe pulmonary nodule when compared with prior CT chest from 08/14/2022. Dictated on workstation # [id number] Dict: 11/06/22 1038 Trans: 11/06/22 1045 SLAVA [id number] Interpreted by: AUGUSTIN KUMAR MD Electronically signed by: NAME: JUSTUS NORIEGA [facility] REC#: [id number] PT STATUS: REG ER : 1955 PHYSICIAN: GADIEL CELESTE MD ADMIT DATE: 11/06/22/ER Signed Date of Exam:11/06/22 CT HEAD WO PROCEDURE: CT head without contrast. TECHNIQUE: Multiple contiguous axial images were obtained through the brain without the use of intravenous contrast. Auto Exposure Controls were utilized during the CT exam to meet ALARA standards for radiation dose reduction. INDICATION: Loss of consciousness, unresponsive The ventricles are normal in size, shape and position. There are no masses or hemorrhages. There are no extra-axial fluid collections. IMPRESSION: Negative CT head Dictated by: Dictated on workstation # [id number] Dict: 11/06/22 1035 Trans: 11/06/22 1036 TCB [id number] Interpreted by: DELMI TODD MD Electronically signed by: DELMI TODD MD 11/06/22 1036 Critical Care Note Critical Care Start Time: 08:20 Stop Time: 14:25 Total Time (minutes) 130 Progress Patient was at significant risk for hemodynamic compromise. All time billed for critical care is separate from procedures. Patient was being frequently reassessed at the bedside, a lot of time was spent discussing with consulting physicians and transferring physicians. Time was also spent chart reviewing as well as discussing the case with the family Departure Impression Primary Impression: COPD exacerbation Additional Impression: Respiratory failure Qualified Codes: J96.21 - Acute and chronic respiratory failure with hypoxia; J96.22 - Acute and chronic respiratory failure with hypercapnia Disposition: [facility] Condition: Critical Admissions Decision to Admit/Date: Nov 06, 2022 Time/Decision to Admit Time: 11:00 Transfer Transfer Reason: Exceeds level of care (needs neurology and pulmonology specialist) Time Spoke to Accepting Phy: 13:21 Transfer Progress Notes Called Dr. Madsen, she believes patient best served at higher level of care with pulm and neuro available. Contacted at 1106, call back at 1146 with no bed available. Contacted [facility] at 1149, call back at 1224 to discuss the case with the physician. Called back at 1247 with no beds available. Contacted [facility] at [phone], they have no beds available. Contacted [facility] at [phone]. Discussed with the FINANCIAL MANAGER for Dr. Dallas who accepted for transfer, awaiting bed placement. Transfer Facility: [facility] Method of Transfer: Air Departure-Patient Inst. Referrals: KEHINDE MADSEN MD (PCP/Family) Primary Care Physician GADIEL CELESTE MD Nov 06, 2022 07:38
[2022-11-06] MEDS ORDERED: FUROSEMIDE 40 MG/4 ML INJ (LASIX) IVP ONE (07:45)
[2022-11-06] MEDS ORDERED: RT-ALBUTEROL/IPRATROPIUM 3 ML (DUONEB) VIAL IH ONE (07:45)
[2022-11-06] MEDS ORDERED: DOXYCYCLINE 100 MG (VIBRAMYCIN) TABLET PO ONE (07:45)
[2022-11-06] MEDS ORDERED: methylPREDNISolone 125 MG (Solu-MEDROL) VIAL IV ONE (07:45)
[2022-11-06] MEDS ORDERED: cefTRIAXone 1 GM PRE-MIX 50 ML IV ONE (07:45)
[2022-11-06 07:46] LABS: BASOPHILS # (AUTO) 0.1 10^3/uL (0.0-0.1); BASOPHILS % (AUTO) 1 % (0-10); EOSINOPHILS # (AUTO) 0.6 10^3/uL (0.0-0.3); EOSINOPHILS % (AUTO) 6 % (0-10); HEMATOCRIT 44 % (40-54); LYMPHOCYTES # (AUTO) 1.3 10^3/uL (1.0-4.0); LYMPHOCYTES % (AUTO) 13 % (12-44); MEAN CORPUSCULAR HEMOGLOBIN 34 pg (25-34); MEAN CORPUSCULAR HGB CONC 34 g/dL (32-36); MEAN CORPUSCULAR VOLUME 99 fL (80-99); MEAN PLATELET VOLUME 9.5 fL (9.0-12.2); MONOCYTES % (AUTO) 10 % (0-12); NEUTROPHILS % (AUTO) 70 % (42-75); PLATELET COUNT 188 10^3/uL (130-400); WHITE BLOOD COUNT 10.1 10^3/uL (4.3-11.0)
[2022-11-06 07:56] LABS: ALBUMIN 4.3 GM/DL (3.2-4.5); CHLORIDE 96 MMOL/L (98-107); POTASSIUM 4.3 MMOL/L (3.6-5.0); SODIUM 139 MMOL/L (135-145)
--- NOTE | 2022-11-06 07:56 | Diagnostic Imaging Report ---
Indication: Shortness of breath Portable chest 7:39 AM Heart size and pulmonary vascularity are normal. Lungs are clear. There are no effusions or pneumothoraces. There are old healed fractures in the right posterior thoracic cage. IMPRESSION: No acute abnormalities in the chest Dictated by: Dictated on workstation # [id number]
[2022-11-06] MEDS ORDERED: NS IV 1000 ML 1,000 ML ONE (07:57)
[2022-11-06] MEDS ORDERED: RT-ALBUTEROL/IPRATROPIUM 3 ML (DUONEB) VIAL ONE ×2 (07:57→08:34)
[2022-11-06 07:58] LABS: GLUCOSE 101 MG/DL (70-105); TOTAL PROTEIN 6.9 GM/DL (6.4-8.2)
[2022-11-06 07:59] LABS: CARBON DIOXIDE 34 MMOL/L (21-32)
[2022-11-06 08:00] LABS: BILIRUBIN,TOTAL 1.6 MG/DL (0.1-1.0)
[2022-11-06] MEDS: NS IV 1000 ML 1,000 ML IV SCH ×2 (08:00→08:12)
[2022-11-06 08:02] LABS: ALKALINE PHOSPHATASE 66 U/L (40-136); CREATININE SERUM 0.99 MG/DL (0.60-1.30); GFR ESTIMATED 84
[2022-11-06 08:03] LABS: BUN/CREATININE RATIO 7
[2022-11-06 08:04] LABS: BILIRUBIN,DIRECT 0.5 MG/DL (0.0-0.3); BILIRUBIN,INDIRECT 1.1 MG/DL
[2022-11-06 08:05] LABS: ALANINE AMINOTRANSFERASE 22 U/L (0-55)
[2022-11-06] MEDS ORDERED: EPINEPHrine (PYXIS DRIP KIT ONLY) 1 MG/ML X 4 AMPS ONE (08:23)
[2022-11-06] MEDS ORDERED: NS (IVPB) 250 ML ONE (08:23)
[2022-11-06 08:36] LABS: BAND NEUTROPHILS 0 %; BASOPHILS % (MANUAL) 1 %; EOSINOPHILS % (MANUAL) 6 %; LYMPHOCYTES % (MANUAL) 6 %; MONOCYTES % (MANUAL) 11 %; NEUTROPHILS % (MANUAL) 76 %; RBC MORPH NORMAL
[2022-11-06 08:52] LABS: ABG BASE EXCESS -2.7 MMOL/L (-2.5-2.5); ABG OXYGEN SATURATION 99 % (94-100); ABG PO2 213 MMHG (79-93); ABG TCO2 32.3 MMOL/L (21.0-31.0)
[2022-11-06 08:55] LABS: ABG PCO2 119 MMHG (35-45); ABG PH 6.99 (7.37-7.43)
[2022-11-06 08:56] LABS: PATIENT TEMP 35.6; VENTILATOR YES
[2022-11-06 08:57] LABS: ALLENS TEST YES-POS; INSPIRED O2 100
--- NOTE | 2022-11-06 08:58 | Diagnostic Imaging Report ---
Indication: Chest pain Portable chest 8:32 AM There is ET tube projects over the trachea. Heart size and pulmonary vascularity are normal. Lungs are clear. There are no effusions or pneumothoraces. IMPRESSION: No acute abnormalities in the chest Dictated by: Dictated on workstation # [id number]
[2022-11-06] MEDS ORDERED: RT-ALBUTEROL SULF 2.5 MG/3 ML PRE-MIX VIAL INH ONE (09:10)
[2022-11-06] MEDS ORDERED: RT-ALBUTEROL SULF 2.5 MG/3 ML PRE-MIX VIAL ONE (09:11)
[2022-11-06] MEDS ORDERED: EPINEPHrine 1 MG INJECTION 4 MG in NS (IVPB) 246 ML IV STA (09:33)
[2022-11-06] MEDS ORDERED: NS 100 ML (IVPB) BAG IV ONE (10:00)
[2022-11-06] MEDS ORDERED: IOHEXOL 350 MG/ML 100 ML (OMNIPAQUE 350) VIAL IV ONE (10:00)
[2022-11-06] MEDS ORDERED: HOLD METFORMIN - RECEIVED CONTRAST 20 ML VIAL IV SCH (10:00)
[2022-11-06 10:15] LABS: BILIRUBIN,URINE NEGATIVE (NEGATIVE); CLARITY,URINE CLEAR; COLOR,URINE YELLOW; GLUCOSE, URINE (UA) NEGATIVE (NEGATIVE); KETONES,URINE NEGATIVE (NEGATIVE); LEUKOCYTE ESTERASE ,URINE NEGATIVE (NEGATIVE); NITRITE,URINE NEGATIVE (NEGATIVE); PROTEIN,URINE 2+ (NEGATIVE)
[2022-11-06 10:23] LABS: BACTERIA,URINE TRACE /HPF; URINE OTHER LG SPERM /HPF; WBC,URINE 0-2 /HPF
--- NOTE | 2022-11-06 10:37 | Diagnostic Imaging Report ---
PROCEDURE: CT head without contrast. TECHNIQUE: Multiple contiguous axial images were obtained through the brain without the use of intravenous contrast. Auto Exposure Controls were utilized during the CT exam to meet ALARA standards for radiation dose reduction. INDICATION: Loss of consciousness, unresponsive The ventricles are normal in size, shape and position. There are no masses or hemorrhages. There are no extra-axial fluid collections. IMPRESSION: Negative CT head Dictated by: Dictated on workstation # [id number]
[2022-11-06 10:39] VITALS: BP 162/74
--- NOTE | 2022-11-06 10:46 | Diagnostic Imaging Report ---
INDICATION: Shortness of air. The ET tube has the tip above the james. NG tube passes into the stomach. Evaluation of the pulmonary arterial system is without evidence of thromboembolism. No filling defects are seen within central, lobar or segmental branches. Thoracic aorta is normal caliber. There is no dissection. No pericardial or pleural fluid is identified. There is a pulmonary nodule in the right lower lobe measuring 9 mm. There is some minimal atelectasis in the posterior right lower lobe. Minimal subsegmental atelectasis left upper lobe is seen. Otherwise lungs are clear. Upper abdomen is unremarkable. IMPRESSION: 1. No evidence of pulmonary embolism or acute aortic disease. 2. Stable right lower lobe pulmonary nodule when compared with prior CT chest from 08/14/2022. Dictated by: Dictated on workstation # [id number]
[2022-11-06] MEDS ORDERED: PROPOFOL DRIP (ICU) 100 ML IV STA (12:02)
[2022-11-06] MEDS ORDERED: PROPOFOL DRIP (ICU) 100 ML IV ONE (12:04)
[2022-11-06 12:31] LABS: ABG BASE EXCESS 6.3 MMOL/L (-2.5-2.5); ABG OXYGEN SATURATION 100 % (94-100); ABG PO2 334 MMHG (79-93); ABG TCO2 38.2 MMOL/L (21.0-31.0)
[2022-11-06 12:38] LABS: ABG PCO2 99 MMHG (35-45); ABG PH 7.16 (7.37-7.43); ALLENS TEST YES-POS; INSPIRED O2 80; PATIENT TEMP 35.6; VENTILATOR YES
[2022-11-06 14:37] VITALS: BP 143/67
== END 2022-11-06 14:37 | disposition short-term general hospital (02) ==
LOC: EDUNIT# 07:23 → ER 07:25
DX: J44.9 Chronic obstructive pulmonary disease, unspecified (principal); J96.90 Respiratory failure, unspecified, unspecified whether with hypoxia or hypercapnia; I48.0 Paroxysmal atrial fibrillation; I44.7 Left bundle-branch block, unspecified; Z79.01 Long term (current) use of anticoagulants; Z79.899 Other long term (current) drug therapy; Z99.81 Dependence on supplemental oxygen; Z79.51 Long term (current) use of inhaled steroids; Z87.891 Personal history of nicotine dependence
CPT/HCPCS: 31500; 36415; 36600; 51702; 70450; 71045; 71275; 80048; 80076; 81000; 82805; 83880; 84484; 85007; 85027; 93005; 93041; 94640; 99291

== ENCOUNTER 2022-12-02 15:30 | Inpatient (IN) | payer MEDICARE, OTHER ==
[~2022-12-02] VITALS: Ht 177.8 cm; Wt 89.0 kg
[2022-12-02 15:30] VITALS: BP 110/61
--- OUTSIDE RECORDS SUMMARY | 2022-12-02 16:07 | XMS REPORT | Encounter Summary ---
Demographics Preferred Language Unknown Marital Status Unknown Spiritism Affiliation Unknown Race Unknown Ethnic Group Unknown Author Author [facility] Organization [facility] Address Unknown Phone Unavailable Care Team Providers Care Physician Office Specialist Name Role Phone PCP Unavailable Encounter Details Care Team Description Date Type Department Parish, Interface Unk Provider 11/06/2022 [employer] [facility] Virtual [facility] Location Social History Date Tobacco Use Types Packs/Day Years Used Smoking Tobacco: Never Assessed Date Recorded Sex and Gender Information Value Sex Assigned at Not on file Gender Identity Not on file Sexual Orientation Not on file documented as of this encounter Plan of Treatment Date/Time Name Type Priority Associated Diag noses 11/06/2022 5:34 PM CDT [employer] outside images External Films Routine for PACS documented as of this encounter Procedures Comments Procedure Name Priority Date/Time Associated Diag nosis [employer] OUTSIDE IMAGES Routine 11/06/2022 FOR PACS 5:34 PM CDT documented in this encounter Visit Diagnoses Not on filedocumented in this encounter
--- OUTSIDE RECORDS SUMMARY | 2022-12-02 16:07 | XMS REPORT | Encounter Summary ---
Demographics Preferred Language Unknown Marital Status Unknown Christianity Affiliation Unknown Race Unknown Ethnic Group Unknown Author Author [facility] Organization [facility] Address Unknown Phone Unavailable Care Team Providers Care Rough Planer Tender Name Role Phone PCP Unavailable Encounter Details Care Team Description Date Type Department Parish, Interface Unk Provider 11/06/2022 [place] [facility] Virtual Revenu e Location Social History Date [...]
--- OUTSIDE RECORDS SUMMARY | 2022-12-02 16:07 | XMS REPORT | CCD ---
Author Author Edward Nicoals Organization Tasha Nicolas MD, [facility] Address [address] [place] [address] Phone Care Team Providers Care [employer] Name Role Phone Tasha Nicolas PP Unavailable CCM Unavailable Summary Purpose Interface Exchange Insurance Providers Payer name Policy type / Coverage type Covered democrat ID Effective Begin Date Effective End Date WPS Medicare Part B Medicare Part B [id number] Unkno wn [employer] and Life Medicare Part B [id number] Unk nown Family history Brother Diagnosis Age At Onset Hypertension Unknown Hyperlipidemia Unknown Father Diagnosis Age At Onset Diabetes Unknown Mother Diagnosis Age At Onset liver failure Unknown Social History Social History Element Codes Description Effective Dates Marital status Unknown Steph 11/23/[address]: 8512303 Former smoker quit June 2015 06/11/[address]: 132026 Currently drinks alcohol 05/21 Number of years drinking alcohol Unknown 5 - 05/21/2015 Allergies, Adverse Reactions, Alerts Substance Reaction Codes Entered Date Inactivated Date Status * NO KNOWN DRUG ALLERGIES Unknown 05/30/2015 No Inactiv e Date Active Problems Condition Codes Effective Dates Condition Status COPD (chronic obstructive pulmonary disease) ICD-10: J 44.9 ICD-9: 496 09/29/2022 Active Essential (primary) hypertension ICD-10: I10 ICD-9: 401.9 05/12/2016 Active Paroxysmal A-fib ICD-10: I48.0 ICD-9: 427.31 09/29/2022 Active Chronic obstructive pulmonary disease with (acute) exa cerbation ICD-10: J44.1 ICD-9: 491.21 11/23/2017 Active Cough in adult ICD-10: R05.9 ICD-9: 786.2 08/07/2022 Active Incidental lung nodule ICD-10: R91.1 ICD-9: 793.11 08/07/2022 Active Acute bronchitis due to other specified organisms ICD- 10: J20.8 ICD-9: 466.0 07/23/2017 Active Cough productive of yellow sputum ICD-10: R05.8 ICD-9: 786.2 08/29/2021 Active Hypoxemia ICD-10: R09.02 ICD-9: 799.02 07/29/2018 Active Panlobular emphysema ICD-10: J43.1 ICD-9: 492.8 12/25/2021 Active Shortness of breath ICD-10: R06.02 ICD-9: 786.05 05/20/2015 Active Elevated liver enzymes ICD-10: R74.8 ICD-9: 790.5 12/25/2021 Active Tobacco use ICD-10: Z72.0 ICD-9: 305.1 11/11/2016 Active Mixed hyperlipidemia ICD-10: E78.2 ICD-9: 272.2 11/11/2016 Active Cough ICD-10: R05 ICD-9: 786.2 07/23/2017 Active Encounter for general adult medical examination with a bnormal findings ICD-10: Z00.01 ICD-9: V70.0 05/31/2020 Active Pneumonia of right lower lobe due to infectious organi sm ICD-10: J18.9 ICD-9: 486 05/31/2020 Active Chronic atrial fibrillation ICD-10: I48.2 ICD-9: 427.31 08/13/2015 Active Fever, unspecified ICD-10: R50.9 ICD-9: 780.60 07/23/2017 Active Hypertension Unknown 05/12/2017 Active Encounter for screening for malignant neoplasm of pros hernandez ICD-10: Z12.5 ICD-9: V76.44 11/11/2016 Active Laceration without foreign body of right hand, initial encounter ICD-10: S61.411A ICD-9: 882.2 05/12/2017 Active Allergic contact dermatitis due to plants, except food ICD-10: L23.7 ICD-9: 692.6 03/17/2016 Active VACCIN FOR INFLUENZA ICD-10: Z23 ICD-9: V04.81 05/12/2016 Active Edema, unspecified ICD-10: R60.9 ICD-9: 782.3 08/13/2015 Active Idiopathic sleep related nonobstructive alveolar hypov entilation ICD-10: G47.34 ICD-9: 327.24 08/13/2015 Active Tachycardia, unspecified ICD-10: R00.0 ICD-9: 785.0 05/29/2015 Active Encounter for other general examination ICD-10: Z00.8 ICD-9: V70.5 05/20/2015 Active Medications Medication Codes Instructions Start Date Stop Date Status Fill Instructions albuterol sulfate 2.5 mg/3 mL (0.083 %) solution for n ebulization RxNorm: 567928 INHALE ONE VIAL VIA NEBULIZER FOUR TIMES DAILY NEEDED FOR DYSPNEA 10/10/2022 02/06/2023 Active Eliquis 5 mg tablet RxNorm: 8985629 1 Tablet(s) Oral two times a da y 09/29/2022 No Stop Date Active digoxin 250 mcg (0.25 mg) tablet RxNorm: 932804 1 Tablet(s) Ora l every day 09/29/2022 No Stop Date Active diltiazem ER 240 mg tablet,extended release 24 hr RxNorm: 83 0879 1 Tablet(s) Oral every day 09/29/2022 No Stop Date Active amiodarone 200 mg tablet RxNorm: 447781 2 Tablet(s) Oral two ti mes a day 09/29/2022 10/28/2022 Active Ventolin HFA 90 mcg/actuation aerosol inhaler RxNorm: 940660 INHALE TWO PUFFS BY MOUTH TWICE DAILY 09/23/2022 04/20/2023 Active potassium chloride ER 20 mEq tablet,extended release(p art/cryst) RxNorm: 1680536 Take 1 Tablet(s) Oral every day 09/23/2022 09/28/2022 Inactive prednisone 10 mg tablets in a dose pack RxNorm: 344031 Take 1 Tablet(s) Oral as directed 6 tabs daily x 3 days then 5 tabs daily x 3 days then 4 tabs daily x 3 days then 3 tabs daily x 3 days then 2 tabs daily x 3 days then 1 tab daily x 3 days then 1/2 tab daily x 1 week then stop 09/09/2022 09/28/2022 Inact phuong dispense QS Zithromax Z-Branden 250 mg tablet RxNorm: 470298 Take 1 Tab let(s) Oral as directed 2 tabs on day #1, then 1 tab daily x 10 09/09/2022 09/28/2022 Inactive back to back zpacks furosemide 40 mg tablet RxNorm: 615049 Take 1 Tablet(s) Oral ev boni day 08/25/2022 09/28/2022 Inactive triamcinolone acetonide 40 mg/mL suspension for injection Rx Norm: 3465006 Take Milliliter(s) Injection 07/08/2022 07/08/2022 Inactive ceftriaxone 500 mg solution for injection RxNorm: 6483482 Take I njection 07/08/2022 07/08/2022 Inactive levofloxacin 500 mg tablet RxNorm: 257679 Take 1 Tablet(s) Oral every day 07/08/2022 07/14/2022 Inactive amoxicillin 875 mg-potassium clavulanate 125 mg tablet RxNor m: 740942 Take 1 Tablet(s) Oral two times a day 06/30/2022 07/13/2022 Inactive prednisone 20 mg tablet RxNorm: 905162 Take 3 Tablet(s) Oral ev boni day 06/30/2022 07/09/2022 Inactive albuterol sulfate 2.5 mg/3 mL (0.083 %) solution for n ebulization RxNorm: 774684 INHALE ONE VIAL VIA NEBULIZER FOUR TIMES DAILY NEEDED FOR DYSPNEA 06/25/2022 06/25/2022 Inactive lisinopril 2.5 mg tablet RxNorm: 315969 TAKE 1 TABLET B Y MOUTH DAILY Take 1 Tablet(s) Sublingual every day 06/20/2022 09/28/2022 Inactive allopurinol 100 mg tablet RxNorm: 637434 TAKE 1 TABLET BY MOUTH TWICE DAILY AFTER MEALS 06/11/2022 11/07/2022 Active albuterol sulfate 2.5 mg/3 mL (0.083 %) solution for n ebulization RxNorm: 708752 INHALE ONE VIAL VIA NEBULIZER FOUR TIMES DAILY NEEDED FOR DYSPNEA 04/28/2022 04/28/2022 Inactive potassium chloride ER 20 mEq tablet,extended release(p art/cryst) RxNorm: 2810080 Take 1 Tablet(s) Oral every day 04/28/2022 04/28/2022 Inactive prednisone 20 mg tablet RxNorm: 387957 Take 3 Tablet(s) Oral ev boni day 04/15/2022 04/24/2022 Inactive amoxicillin 875 mg-potassium clavulanate 125 mg tablet RxNor m: 208074 Take 1 Tablet(s) Oral two times a day 04/15/2022 04/28/2022 Inactive Ventolin HFA 90 mcg/actuation aerosol inhaler RxNorm: 248269 INHALE TWO PUFFS BY MOUTH TWICE DAILY 03/14/2022 03/14/2022 Inactive This prescript ion was filled on 03/14/2022. Any refills authorized will be placed on file. albuterol sulfate 2.5 mg/3 mL (0.083 %) solution for n ebulization RxNorm: 928106 INHALE ONE VIAL VIA NEBULIZER FOUR TIMES DAILY NEEDED FOR DYSPNEA 03/03/2022 03/03/2022 Inactive metoprolol tartrate 25 mg tablet RxNorm: 966386 TAKE 1 TABLET BY MOUTH TWICE DAILY 02/25/2022 09/28/2022 Inactive amoxicillin 875 mg-potassium clavulanate 125 mg tablet RxNor m: 419373 Take 1 Tablet(s) Oral two times a day 01/23/2022 02/05/2022 Inactive prednisone 20 mg tablet RxNorm: 824466 Take 3 Tablet(s) Oral ev boni day 01/23/2022 02/01/2022 Inactive furosemide 40 mg tablet RxNorm: 893986 TAKE 1 TABLET BY MOUTH DAILY 12/27/2021 12/27/2021 Inactive potassium chloride ER 20 mEq tablet,extended release(p art/cryst) RxNorm: 6049007 TAKE 1 TABLET BY MOUTH DAILY 12/27/2021 12/27/2021 Inactive albuterol sulfate 2.5 mg/3 mL (0.083 %) solution for n ebulization RxNorm: 411034 INHALE ONE VIAL VIA NEBULIZER FOUR TIMES DAILY NEEDED FOR DYSPNEA 12/13/2021 12/13/2021 Inactive doxycycline hyclate 100 mg tablet RxNorm: 5598338 Take 1 Tablet(s) Oral two times a day 12/02/2021 12/11/2021 Inactive prednisone 10 mg tablets in a dose pack RxNorm: 975746 Take 1 Tablet(s) Oral every night at bedtime 12/02/2021 12/07/2021 Inactive lisinopril 2.5 mg tablet RxNorm: 742956 TAKE 1 TABLET BY MOUTH RUDDY Y 11/27/2021 11/27/2021 Inactive albuterol sulfate 2.5 mg/3 mL (0.083 %) solution for n ebulization RxNorm: 907769 INHALE THE CONTENTS OF 1 VIAL PER NEBULI ZER FOUR TIMES DAILY NEEDED FOR DYSPNEA 09/23/2021 09/23/2021 Inactive prednisone 20 mg tablet RxNorm: 653459 Take 1 Tablet(s) Oral tw o times a day 09/06/2021 09/10/2021 Inactive Augmentin 875 mg-125 mg tablet RxNorm: 154796 Take 1 Ta blet(s) Oral two times a day 09/06/2021 09/12/2021 Inactive metoprolol tartrate 25 mg tablet RxNorm: 793284 TAKE 1 TABLET BY MOUTH TWICE DAILY 08/29/2021 08/29/2021 Inactive furosemide 40 mg tablet RxNorm: 832624 TAKE 1 TABLET BY MOUTH DAILY 08/29/2021 08/29/2021 Inactive potassium chloride ER 20 mEq tablet,extended release(p art/cryst) RxNorm: 8721648 TAKE 1 TABLET BY MOUTH DAILY 06/25/2021 06/25/2021 Inactive albuterol sulfate 2.5 mg/3 mL (0.083 %) solution for n ebulization RxNorm: 124529 INHALE THE CONTENTS OF 1 VIAL PER NEBULI ZER FOUR TIMES DAILY NEEDED FOR DYSPNEA 06/11/2021 06/11/2021 Inactive lisinopril 2.5 mg tablet RxNorm: 659298 TAKE 1 TABLET BY MOUTH RUDDY Y 05/30/2021 05/30/2021 Inactive albuterol sulfate HFA 90 mcg/actuation aerosol inhaler RxNor m: 3720830 INHALE TWO PUFFS BY MOUTH TWICE DAILY 05/15/2021 05/15/2021 Inactive metoprolol tartrate 25 mg tablet RxNorm: 888927 TAKE 1 TABLET BY MOUTH TWICE DAILY 05/09/2021 05/09/2021 Inactive albuterol sulfate HFA 90 mcg/actuation aerosol inhaler RxNor m: 7131244 INHALE TWO PUFFS BY MOUTH TWICE DAILY 03/08/2021 03/08/2021 Inactive furosemide 40 mg tablet RxNorm: 774321 TAKE 1 TABLET BY MOUTH DAILY 03/04/2021 03/04/2021 Inactive prednisone 20 mg tablet RxNorm: 826527 Take 2 Tablet(s) Oral every day as needed dyspnea 02/27/2021 03/03/2021 Inactive please keep on f ile for pt to refill as needed albuterol sulfate 2.5 mg/3 mL (0.083 %) solution for n ebulization RxNorm: 225947 INHALE THE CONTENTS OF 1 VIAL PER NEBULI ZER FOUR TIMES DAILY NEEDED FOR DYSPNEA 01/21/2021 01/21/2021 Inactive allopurinol 100 mg tablet RxNorm: 889898 TAKE 1 TABLET BY MOUTH TWICE DAILY AFTER MEALS 12/28/2020 12/28/2020 Inactive potassium chloride ER 20 mEq tablet,extended release(p art/cryst) RxNorm: 8770860 TAKE 1 TABLET BY MOUTH DAILY 12/28/2020 12/28/2020 Inactive ProAir HFA 90 mcg/actuation aerosol inhaler RxNorm: 821466 INHALE TWO PUFFS BY MOUTH TWICE DAILY 11/30/2020 11/30/2020 Inactive lisinopril 2.5 mg tablet RxNorm: 263745 TAKE 1 TABLET BY MOUTH RUDDY Y 11/30/2020 11/30/2020 Inactive prednisone 20 mg tablet RxNorm: 555495 2 Tablet(s) Oral every day 0 10/30/2020 11/03/2020 Inactive Zithromax Z-Branden 250 mg tablet RxNorm: 114791 1 Tablet(s) Oral a s directed 10/30/2020 11/03/2020 Inactive zpack as directed cefdinir 300 mg capsule RxNorm: 050349 1 Capsule(s) Oral two ti mes a day 10/30/2020 11/05/2020 Inactive make sure he gets a probiotic to take twice daily while on the antibiotic albuterol sulfate 2.5 mg/3 mL (0.083 %) solution for n ebulization RxNorm: 982448 INHALE THE CONTENTS OF 1 VIAL PER NEBULI ZER FOUR TIMES DAILY NEEDED FOR DYSPNEA 10/30/2020 10/30/2020 Inactive furosemide 40 mg tablet RxNorm: 340823 TAKE 1 TABLET BY MOUTH DAILY 09/06/2020 09/06/2020 Inactive ProAir HFA 90 mcg/actuation aerosol inhaler RxNorm: 501109 INHALE 2 PUFFS TWICE DAILY 09/06/2020 11/29/2020 Inactive lisinopril 2.5 mg tablet RxNorm: 624681 TAKE 1 TABLET BY MOUTH ONCE DAILY 09/06/2020 11/29/2020 Inactive albuterol sulfate 2.5 mg/3 mL (0.083 %) solution for n ebulization RxNorm: 132679 INHALE THE CONTENTS OF 1 VIAL PER NEBULI ZER FOUR TIMES DAILY NEEDED FOR DYSPNEA 07/24/2020 08/22/2020 Inactive potassium chloride ER 20 mEq tablet,extended release(p art/cryst) RxNorm: 5699276 TAKE 1 Tablet BY MOUTH ONCE DAILY 06/26/2020 12/22/2020 Inactiv e prednisone 20 mg tablet RxNorm: 268187 2 Tablet(s) Oral every day 1 06/05/2020 Inactive cefdinir 300 mg capsule RxNorm: 742766 1 Capsule(s) Oral two ti mes a day 05/31/2020 06/07/2020 Inactive make sure he gets a probiotic to take twice daily while on the antibiotic Kenalog 40 mg/mL suspension for injection RxNorm: 4841045 1.5 Milliliter(s) Injection 05/31/2020 05/31/2020 Inactive ceftriaxone 1 gram solution for injection RxNorm: 5821932 500 Milligram(s) Injection 05/31/2020 05/31/2020 Inactive potassium chloride ER 20 mEq tablet,extended release(p art/cryst) RxNorm: 4686927 TAKE 1 TABLET BY MOUTH ONCE DAILY 05/28/2020 06/25/2020 Inactiv e potassium chloride ER 20 mEq tablet,extended release(p art/cryst) RxNorm: 7613485 TAKE 1 TABLET BY MOUTH ONCE DAILY 04/27/2020 05/26/2020 Inactiv e lisinopril 2.5 mg tablet RxNorm: 184872 TAKE 1 TABLET BY MOUTH ONCE DAILY 04/27/2020 08/24/2020 Inactive ProAir HFA 90 mcg/actuation aerosol inhaler RxNorm: 985168 INHALE 2 PUFFS TWICE DAILY 04/27/2020 08/24/2020 Inactive furosemide 40 mg tablet RxNorm: 541101 TAKE 1 TABLET BY MOUTH DAILY 04/27/2020 08/24/2020 Inactive metoprolol tartrate 25 mg tablet RxNorm: 654080 TAKE 1 TABLET BY MOUTH TWICE DAILY 04/27/2020 04/27/2020 Inactive albuterol sulfate 2.5 mg/3 mL (0.083 %) solution for n ebulization RxNorm: 958635 INHALE THE CONTENTS OF 1 VIAL PER NEBULI ZER FOUR TIMES DAILY NEEDED FOR DYSPNEA 03/30/2020 04/28/2020 Inactive lisinopril 2.5 mg tablet RxNorm: 334329 TAKE 1 TABLET BY MOUTH ONCE DAILY 02/27/2020 03/27/2020 Inactive potassium chloride ER 20 mEq tablet,extended release(p art/cryst) RxNorm: 6981291 TAKE 1 TABLET BY MOUTH ONCE DAILY 02/27/2020 03/27/2020 Inactiv e furosemide 40 mg tablet RxNorm: 426082 TAKE 1 TABLET BY MOUTH DAILY 02/27/2020 03/27/2020 Inactive ProAir HFA 90 mcg/actuation aerosol inhaler RxNorm: 036730 INHALE 2 PUFFS TWICE DAILY 01/27/2020 04/25/2020 Inactive potassium chloride ER 20 mEq tablet,extended release(p art/cryst) RxNorm: 6340120 TAKE 1 TABLET BY MOUTH ONCE DAILY 01/27/2020 02/25/2020 Inactiv e lisinopril 2.5 mg tablet RxNorm: 819384 TAKE 1 TABLET BY MOUTH ONCE DAILY 01/27/2020 02/25/2020 Inactive metoprolol tartrate 25 mg tablet RxNorm: 111985 TAKE 1 TABLET BY MOUTH TWICE DAILY 01/27/2020 02/25/2020 Inactive furosemide 40 mg tablet RxNorm: 840130 TAKE 1 TABLET BY MOUTH DAILY 01/27/2020 02/25/2020 Inactive metoprolol tartrate 25 mg tablet RxNorm: 693083 TAKE 1 TABLET BY MOUTH TWICE DAILY 12/29/2019 01/26/2020 Inactive allopurinol 100 mg tablet RxNorm: 870838 TAKE 1 TABLET BY MOUTH TWICE DAILY AFTER MEALS 12/29/2019 06/25/2020 Inactive lisinopril 2.5 mg tablet RxNorm: 267352 TAKE 1 TABLET BY MOUTH ONCE DAILY 12/29/2019 01/26/2020 Inactive albuterol sulfate 2.5 mg/3 mL (0.083 %) solution for n ebulization RxNorm: 619358 INHALE THE CONTENTS OF 1 VIAL PER NEBULI ZER FOUR TIMES DAILY NEEDED FOR DYSPNEA 12/05/2019 12/19/2019 Inactive albuterol sulfate 2.5 mg/3 mL (0.083 %) solution for n ebulization RxNorm: 770631 INHALE THE CONTENTS OF 1 VIAL PER NEBULI ZER FOUR TIMES DAILY NEEDED FOR DYSPNEA 10/10/2019 11/08/2019 Inactive potassium chloride ER 20 mEq tablet,extended release(p art/cryst) RxNorm: 1835175 1TD 09/01/2019 01/26/2020 Inactive lisinopril 2.5 mg tablet RxNorm: 727914 TAKE 1 TABLET BY MOUTH ONCE DAILY 07/04/2019 12/28/2019 Inactive Generic For:ZESTRIL 2.5 MG TABLET 07/04/2019 9:42:31 AM ProAir HFA 90 mcg/actuation aerosol inhaler RxNorm: 323114 INHALE 2 PUFFS TWICE DAILY 07/04/2019 10/31/2019 Inactive Generic For:[place] HFA (200) 07/04/2019 9:42:10 AM furosemide 40 mg tablet RxNorm: 521503 TAKE 1 TABLET BY MOUTH DAILY 06/02/2019 01/26/2020 Inactive Generic For:LASIX 40MG 05/05 9:32:25 AM doxycycline hyclate 100 mg capsule RxNorm: 9958461 1 Cap jodi(s) Oral two times a day 05/09/2019 05/16/2019 Inactive DC zpack Zithromax Z-Branden 250 mg tablet RxNorm: 079749 1 Tablet(s) Oral a s directed 05/09/2019 05/08/2019 Inactive zpack as directed doxycycline hyclate 100 mg capsule RxNorm: 5588134 1 Cap jodi(s) Oral two times a day 05/09/2019 05/08/2019 Inactive Zithromax Z-Branden 250 mg tablet RxNorm: 351547 1 Tablet(s) Oral a s directed 05/09/2019 05/09/2019 Inactive zpack as directed prednisone 20 mg tablet RxNorm: 649629 1 Tablet(s) Oral two jay es a day 05/09/2019 05/14/2019 Inactive albuterol sulfate 2.5 mg/3 mL (0.083 %) solution for n ebulization RxNorm: 522630 Milliliter(s) 3 Milliliter(s) INH QID as needed dyspnea 04/07/20 19 10/09/2019 Inactive DX: J44.9 potassium chloride ER 20 mEq tablet,extended release(p art/cryst) RxNorm: 5341154 TAKE 1 TABLET BY MOUTH ONCE DAILY 03/03/2019 08/29/2019 Inactiv e Generic For:K- DUR 20 MEQ TABLET SA 03/02/2019 11:28:36 AM allopurinol 100 mg tablet RxNorm: 663197 TAKE 1 TABLET BY MOUTH TWICE DAILY AFTER MEALS 02/01/2019 08/29/2019 Inactive 02/01/2019 11:24 :00 AM metoprolol tartrate 25 mg tablet RxNorm: 779892 TAKE 1 TABLET BY MOUTH TWICE DAILY 02/01/2019 08/29/2019 Inactive 02/01/2019 11:23 :07 AM lisinopril 2.5 mg tablet RxNorm: 502269 TAKE 1 TABLET BY MOUTH ONCE DAILY 01/03/2019 07/01/2019 Inactive Generic For:ZESTRIL 2.5 MG TABLET 01/03/2019 11:16:41 AM ProAir HFA 90 mcg/actuation aerosol inhaler RxNorm: 504603 INHALE 2 PUFFS TWICE DAILY 12/03/2018 05/01/2019 Inactive Generic For:[place] HFA (200) 12/03/2018 3:25:56 PM furosemide 40 mg tablet RxNorm: 965840 TAKE 1 TABLET BY MOUTH DAILY 10/04/2018 05/31/2019 Inactive Generic For:LASIX 40MG 11/2018 2:30:30 PM albuterol sulfate 2.5 mg/3 mL (0.083 %) solution for n ebulization RxNorm: 316151 Milliliter(s) 3 Milliliter(s) INH QID as needed dyspnea 09/29/19 19 04/06/2019 Inactive DX: J44.9 albuterol sulfate 2.5 mg/3 mL (0.083 %) solution for n ebulization RxNorm: 817507 Milliliter(s) 3 Milliliter(s) INH QID as needed dyspnea 09/28/19 19 09/28/2018 Inactive DX: J44.9 potassium chloride ER 20 mEq tablet,extended release(p art/cryst) RxNorm: 1443428 TAKE 1 TABLET BY MOUTH ONCE DAILY 09/06/2018 03/02/2019 Inactiv e Generic For:K- DUR 20 MEQ TABLET SA 09/06/2018 10:05:54 AM prednisone 10 mg tablet RxNorm: 488569 Tablet(s) PO UD 08/12/201801/2019 Inactive 6,5,4,3,2,1 Levaquin 500 mg tablet RxNorm: 194386 1 Tablet(s) PO daily 08/06/1908/12/2018 Inactive Levaquin 500 mg tablet RxNorm: 409063 1 Tablet(s) PO daily 08/06/1908/05/2018 Inactive prednisone 10 mg tablet RxNorm: 473980 Tablet(s) PO UD 08/06/201804/2019 Inactive 6,5,4,3,2,1 prednisone 20 mg tablet RxNorm: 723937 2 Tablet(s) PO daily 018 08/02/2018 Inactive doxycycline hyclate 100 mg tablet RxNorm: 4875691 1 Tablet(s) PO BI D 07/29/2018 08/07/2018 Inactive Kenalog 40 mg/mL suspension for injection RxNorm: 6750808 1.5 Mi lliliter(s) Inj 07/29/2018 07/29/2018 Inactive ceftriaxone 1 gram solution for injection RxNorm: 9995330 Inj 07/29/2018 07/29/2018 Inactive Symbicort 160 mcg-4.5 mcg/actuation HFA aerosol inhaler RxNo rm: 9962297 2 Puff(s) INH BID 07/29/2018 08/27/2018 Inactive lisinopril 2.5 mg tablet RxNorm: 379133 TAKE 1 TABLET BY MOUTH ONCE DAILY 07/07/2018 01/02/2019 Inactive Generic For:ZESTRIL 2.5 MG TABLET 07/07/2018 9:08:01 AM ProAir HFA 90 mcg/actuation aerosol inhaler RxNorm: 370582 INHALE 2 PUFFS TWICE DAILY 05/19/2018 10/15/2018 Inactive 05/19/2018 9:02: 12 AM allopurinol 100 mg tablet RxNorm: 018247 TAKE 1 TABLET BY MOUTH TWICE DAILY AFTER MEALS 05/19/2018 12/14/2018 Inactive 05/19/2018 9:02: 09 AM albuterol sulfate 2.5 mg/3 mL (0.083 %) solution for n ebulization RxNorm: 075314 Milliliter(s) 3 Milliliter(s) INH QID as needed dyspnea 04/15/20 18 09/27/2018 Inactive potassium chloride ER 20 mEq tablet,extended release(p art/cryst) RxNorm: 2593045 TAKE 1 TABLET BY MOUTH ONCE DAILY 03/09/2018 09/04/2018 Inactiv e Generic For:K- DUR 20 MEQ TABLET SA 03/09/2018 9:10:29 AM furosemide 40 mg tablet RxNorm: 691708 TAKE 1 TABLET BY MOUTH DAILY 02/08/2018 10/03/2018 Inactive Generic For:LASIX 40MG 04/2018 9:01:52 AM lisinopril 2.5 mg tablet RxNorm: 519655 TAKE 1 TABLET BY MOUTH ONCE DAILY 01/08/2018 07/06/2018 Inactive Generic For:ZESTRIL 2.5 MG TABLET 01/08/2018 8:56:05 AM ceftriaxone 500 mg solution for injection RxNorm: 0999012 Inj 11/23/2017 11/23/2017 Inactive doxycycline hyclate 100 mg tablet RxNorm: 405510 1 Tablet(s) PO BID 11/23/2017 11/29/2017 Inactive Kenalog 40 mg/mL suspension for injection RxNorm: 3880382 Millil iter(s) Inj 11/23/2017 11/23/2017 Inactive metoprolol tartrate 25 mg tablet RxNorm: 919116 TAKE 1 TABLET BY MOUTH TWICE DAILY 11/09/2017 06/06/2018 Inactive 11/09/2017 9:08: 25 AM potassium chloride ER 20 mEq tablet,extended release(p art/cryst) RxNorm: 3751869 TAKE 1 TABLET BY MOUTH ONCE DAILY 09/10/2017 03/08/2018 Inactiv e Generic For:K- DUR 20 MEQ TABLET SA 09/10/2017 9:04:11 AM albuterol sulfate 2.5 mg/3 mL (0.083 %) solution for n ebulization RxNorm: 016632 Milliliter(s) 3 Milliliter(s) INH QID as needed dyspnea 07/24/20 17 04/14/2018 Inactive prednisone 10 mg tablet RxNorm: 859671 Tablet(s) PO UD 07/24/201708/2017 Inactive 6,5,4,3,2,1 Kenalog 40 mg/mL suspension for injection RxNorm: 2565551 1 Mill iliter(s) Inj 07/23/2017 07/23/2017 Inactive ProAir HFA 90 mcg/actuation aerosol inhaler RxNorm: 057605 INHALE 2 PUFFS TWICE DAILY 07/13/2017 12/09/2017 Inactive 07/13/2017 9:03: 32 AM lisinopril 2.5 mg tablet RxNorm: 261918 TAKE 1 TABLET BY MOUTH ONCE DAILY 07/13/2017 01/07/2018 Inactive Generic For:ZESTRIL 2.5 MG TABLET 07/13/2017 9:03:29 AM ProAir HFA 90 mcg/actuation aerosol inhaler RxNorm: 641020 2 INH BI D 06/15/2017 07/03/2019 Inactive ProAir HFA 90 mcg/actuation aerosol inhaler RxNorm: 335864 2 INH BI D 06/15/2017 06/14/2017 Inactive ProAir HFA 90 mcg/actuation aerosol inhaler RxNorm: 769366 2 INH BI D 06/15/2017 07/12/2017 Inactive furosemide 40 mg tablet RxNorm: 649011 TAKE 1 TABLET BY MOUTH DAILY 06/15/2017 02/07/2018 Inactive Generic For:LASIX 40MG 06/03 9:04:05 AM albuterol sulfate 2.5 mg/3 mL (0.083 %) solution for n ebulization RxNorm: 335050 3 Milliliter(s) INH QID as needed dyspnea 05/29/2017 07/23/2017 Inactive allopurinol 100 mg tablet RxNorm: 814541 TAKE 1 TABLET BY MOUTH TWICE DAILY AFTER MEALS 05/15/2017 12/10/2017 Inactive Generic For:ZYLO PRIM 100 MG TABLET 05/15/2017 11:34:11 AM potassium chloride ER 20 mEq tablet,extended release(p art/cryst) RxNorm: 4417552 TAKE 1 TABLET BY MOUTH ONCE DAILY 04/27/2017 08/24/2017 Inactiv e Generic For:K- DUR 20 MEQ TABLET SA 04/25/2017 9:11:14 AM ProAir HFA 90 mcg/actuation aerosol inhaler RxNorm: 815222 2 INH BI D 01/27/2017 05/26/2017 Inactive ProAir HFA 90 mcg/actuation aerosol inhaler RxNorm: 424393 2 INH BI D 01/27/2017 01/26/2017 Inactive triamcinolone acetonide 40 mg/mL suspension for injection Rx Norm: 8232334 1 Milliliter(s) Inj 01/15/2017 01/15/2017 Inactive potassium chloride ER 20 mEq tablet,extended release(p art/cryst) RxNorm: 5523381 TAKE 1 TABLET BY MOUTH ONCE DAILY 12/26/2016 04/24/2017 Inactiv e Generic For:K- DUR 20 MEQ TABLET 12/26/2016 9:09:04 AM lisinopril 2.5 mg tablet RxNorm: 398613 TAKE 1 TABLET BY MOUTH ONCE DAILY 12/26/2016 06/23/2017 Inactive Generic For:ZESTRIL 2.5 MG TABLET 12/26/2016 9:09:00 AM furosemide 40 mg tablet RxNorm: 786973 1 Tablet(s) PO daily 017 05/25/2017 Inactive albuterol sulfate 2.5 mg/3 mL (0.083 %) solution for n ebulization RxNorm: 313058 3 Milliliter(s) INH QID as needed dyspnea 11/11/2016 05/28/2017 Inactive metoprolol tartrate 25 mg tablet RxNorm: 766202 1 Tablet(s) PO BID 10/27/2016 05/24/2017 Inactive potassium chloride ER 20 mEq tablet,extended release RxNorm: 904181 1 Tablet(s) PO daily 08/28/2016 05/30/2020 Inactive lisinopril 5 mg tablet RxNorm: 133524 1/2 Tablet(s) PO daily 201505/11/2017 Inactive albuterol sulfate 2.5 mg/3 mL (0.083 %) solution for n ebulization RxNorm: 057375 1 Milliliter(s) INH QID as needed dyspnea 07/02/2016 11/10/2016 Inactive albuterol sulfate 2.5 mg/3 mL (0.083 %) solution for n ebulization RxNorm: 529993 1 Milliliter(s) INH QID as needed dyspnea 06/18/2016 07/01/2016 Inactive furosemide 40 mg tablet RxNorm: 110387 1 Tablet(s) PO daily 016 11/26/2016 Inactive allopurinol 100 mg tablet RxNorm: 226470 Tablet(s) daily 100 MG PO BIDPC 05/13/2016 12/08/2016 Inactive furosemide 40 mg tablet RxNorm: 064319 1 Tablet(s) PO daily 016 06/03/2016 Inactive potassium chloride ER 20 mEq tablet,extended release RxNorm: 067722 1 Tablet(s) PO daily 05/05/2016 08/27/2016 Inactive Kenalog 40 mg/mL suspension for injection RxNorm: 5671281 Millil iter(s) Inj 03/18/2016 03/18/2016 Inactive albuterol sulfate 2.5 mg/3 mL (0.083 %) solution for n ebulization RxNorm: 962888 1 Milliliter(s) INH QID as needed dyspnea 03/10/2016 06/17/2016 Inactive allopurinol 100 mg tablet RxNorm: 432142 100 MG PO BIDPC 01/28/2016 1 Inactive lisinopril 5 mg tablet RxNorm: 228383 1/2 Tablet(s) PO daily 201507/03/2016 Inactive albuterol sulfate 2.5 mg/3 mL (0.083 %) solution for n ebulization RxNorm: 642006 1 Milliliter(s) INH QID as needed dyspnea 12/26/2015 03/09/2016 Inactive amoxicillin 500 mg capsule RxNorm: 731673 1 Capsule(s) PO TID 12/2512/25/2015 Inactive amoxicillin 500 mg capsule RxNorm: 812686 1 Capsule(s) PO TID 12/2501/01/2016 Inactive metoprolol tartrate 25 mg tablet RxNorm: 646673 1 Tablet(s) PO BID 12/24/2015 07/20/2016 Inactive albuterol sulfate 2.5 mg/3 mL (0.083 %) solution for n ebulization RxNorm: 469763 1 Milliliter(s) INH QID as needed dyspnea 09/19/2015 12/25/2015 Inactive ipratropium-albuterol 0.5 mg-3 mg(2.5 mg base)/3 mL ne bulization soln RxNorm: 5289267 1 INH Q4H as needed 09/10/2015 03/07/2016 Inactive metoprolol tartrate 25 mg tablet RxNorm: 517777 1 Tablet(s) PO BID 08/14/2015 2015 Inactive furosemide 20 mg tablet RxNorm: 919538 1 Tablet(s) PO BID 08/14/2015 08/13/2015 Inactive furosemide 20 mg tablet RxNorm: 655392 1 Tablet(s) PO daily 08/13/2015 Inactive potassium chloride 20 meq RxNorm: 717187 Tablet(s) PO BID 08/14/2015 08/13/2015 Inactive lisinopril 2.5 mg tablet RxNorm: 518146 1 Tablet(s) PO daily 201501/06/2016 Inactive furosemide 40 mg tablet RxNorm: 561407 1 Tablet(s) PO daily 05/12/2016 Inactive potassium chloride ER 20 mEq tablet,extended release(p art/cryst) RxNorm: 1015207 1 Tablet(s) PO daily 08/14/2015 05/04/2016 Inactive allopurinol 100 mg tablet RxNorm: 412356 1 Tablet(s) PO BID 01/27/2016 Inactive ipratropium 20 mcg-albuterol 100 mcg/actuation mist fo r inhalation RxNorm: 9804259 1 INH Q4H as needed 09/10/2015 09/09/2015 Inactive albuterol sulfate 2.5 mg/3 mL (0.083 %) solution for n ebulization RxNorm: 746961 1 Milliliter(s) INH QID as needed dyspnea 09/19/2015 09/18/2015 Inactive Xarelto oral RxNorm: 4858872 oral 08/14/2015 08/13/2015 Inactive Medication Administered Medication Codes Instructions Start Date Status ceftriaxone 500 mg solution for injection RxNorm: 3069718 07/08/2022 No longer Active triamcinolone acetonide 40 mg/mL suspension for injection Rx Norm: 3611459 Milliliter 07/08/2022 No longer Active Kenalog 40 mg/mL suspension for injection RxNorm: 7948955 1.5Mil liliter 05/31/2020 No longer Active ceftriaxone 1 gram solution for injection RxNorm: 8950015 500Mil ligram 05/31/2020 No longer Active Kenalog 40 mg/mL suspension for injection RxNorm: 1661849 1.5Mil liliter 07/29/2018 No longer Active ceftriaxone 1 gram solution for injection RxNorm: 3445550 07/29/2018 No longer Active Kenalog 40 mg/mL suspension for injection RxNorm: 3289895 Millilite r 11/23/2017 No longer Active ceftriaxone 500 mg solution for injection RxNorm: 9041999 11/23/2017 No longer Active Kenalog 40 mg/mL suspension for injection RxNorm: 8009978 1Milli liter 07/23/2017 No longer Active triamcinolone acetonide 40 mg/mL suspension for injection Rx Norm: 0210057 1Milliliter 01/15/2017 No longer Active Kenalog 40 mg/mL suspension for injection RxNorm: 7080230 Millilite r 03/18/2016 No longer Active Immunizations Vaccine Codes Dose Date Status Influenza CVX: 197 06/03/2018 Influenza CVX: 197 09/01/2017 Influenza CVX: 197 0.5 05/13/2016 Complete Diphtheria, Tetanus, Pertussis CVX: 20 10/14/2014 Tetanus, Diptheria, Pertussis CVX: 10/14/2014 Tetanus/Diptheria CVX: 10/14/2014 Results Observation Observation Code Item Item Code Result Date S [facility] Location Uric Acid Ord77 Uric A 7.7 mg/dL 01/23/2022 Unknown Comp Metabolic Mht137 NA 138 mEq/L 01/23/2022 Unkn own Comp Metabolic Hqv441 K 4.0 mEq/L 01/23/2022 Unkn own Comp Metabolic Vwc439 CL 93 mEq/L 01/23/2022 Unkn own Comp Metabolic Vbl552 CO2 36.0 mEq/L 01/23/2022 Unk nown Comp Metabolic Yzw724 ANION GAP 13 01/23/2022 Unkn own Comp Metabolic Daq563 GLUCOSE 84 mg/dL 01/23/2022 Unkn own Comp Metabolic Qmw423 Creat 0.9 mg/dL 01/23/2022 Unkn own Comp Metabolic Jwp219 eGFR 96 ml/min/1.73m2 01/24/20 22 Unknown Comp Metabolic Tof284 BUN 7 mg/dL 01/23/2022 Unkn own Comp Metabolic Toy810 B/C Ratio 8.2 Ratio 01/23/2022 Unkn own Comp Metabolic Itx424 CALCIUM 9.6 mg/dL 01/23/2022 Unkn own Comp Metabolic Wbn895 ALK PHOS 69 U/L 01/23/2022 Unkn own Comp Metabolic Alh659 AST(SGOT) 36 U/L 01/23/2022 Unkn own Comp Metabolic Bje208 ALT(SGPT) 42 U/L 01/23/2022 Unkn own Comp Metabolic Nko648 BILI T 1.9 mg/dL 01/23/2022 Unkn own Comp Metabolic Wpq485 ALBUMIN 4.5 g/dL 01/23/2022 Unkn own Comp Metabolic Eui601 TPRO 6.9 g/dL 01/23/2022 Unkn own Comp Metabolic Zwr755 GLOB 2.4 g/dL 01/23/2022 Unkn own Comp Metabolic Fvs157 A/G Ratio 1.9 Ratio 01/23/2022 Unkn own Comp Metabolic Vfv236 Osmo 273 mOsmo 01/23/2022 Unkn own CULTURE, SPUTUM/LOWER RESPIRATORY M305 SPUTUM CULTURE S ee Note 09/06/2021 Unknown Tsh Ord6 TSH (3rd IS) 2.19 uIU/mL 09/03/2021 Unkn own Total Psa Ord10 PSA 0.82 ng/mL 09/03/2021 Unknown Lipid Ord30 CHOL 200 mg/dL 09/02/2021 Unknown Lipid Ord30 HDL 40.0 mg/dl 09/02/2021 Unknown Lipid Ord30 TRIG 252 mg/dL 09/02/2021 Unknown Lipid Ord30 LDL 110 mg/dL 09/02/2021 Unknown Lipid Ord30 C/HDL 5.0 Ratio 09/02/2021 Unknown Comp Metabolic Hgz902 NA 138 mEq/L 09/02/2021 Unkn own Comp Metabolic Fuk617 K 3.9 mEq/L 09/02/2021 Unkn own Comp Metabolic Jwr444 CL 92 mEq/L 09/02/2021 Unkn own Comp Metabolic Xrt985 CO2 37.0 mEq/L 09/02/2021 Unk nown Comp Metabolic Qlt621 ANION GAP 13 09/02/2021 Unkn own Comp Metabolic Qjd435 GLUCOSE 107 mg/dL 09/02/2021 Unkn own Comp Metabolic Brw634 Creat 0.9 mg/dL 09/02/2021 Unkn own Comp Metabolic Qtf204 eGFR 85 ml/min/1.73m2 09/02/19 22 Unknown Comp Metabolic Sdc349 BUN 9 mg/dL 09/02/2021 Unkn own Comp Metabolic Nss740 B/C Ratio 9.6 Ratio 09/02/2021 Unkn own Comp Metabolic Pgn352 CALCIUM 9.4 mg/dL 09/02/2021 Unkn own Comp Metabolic Ynb891 ALK PHOS 87 U/L 09/02/2021 Unkn own Comp Metabolic Yzk964 AST(SGOT) 59 U/L 09/02/2021 Unkn own Comp Metabolic Hai769 ALT(SGPT) 82 U/L 09/02/2021 Unkn own Comp Metabolic Tzb776 BILI T 1.4 mg/dL 09/02/2021 Unkn own Comp Metabolic Lnk825 ALBUMIN 4.8 g/dL 09/02/2021 Unkn own Comp Metabolic Hat032 TPRO 7.3 g/dL 09/02/2021 Unkn own Comp Metabolic Igo509 GLOB 2.5 g/dL 09/02/2021 Unkn own Comp Metabolic Nrc879 A/G Ratio 1.9 Ratio 09/02/2021 Unkn own Comp Metabolic Azt602 Osmo 275 mOsmo 09/02/2021 Unkn own Cbc With Differential Ord2 WBC 9.74 K/ul 09/02/19 22 Unknown Cbc With Differential Ord2 RBC 4.92 M/ul 09/02/19 22 Unknown Cbc With Differential Ord2 HGB 17.0 g/dl 09/02/19 22 Unknown Cbc With Differential Ord2 HCT 50.6 % 09/02/19 22 Unknown Cbc With Differential Ord2 Neut% 61.4 % 09/02/19 22 Unknown Cbc With Differential Ord2 MCV 102.8 fl 09/02/19 22 Unknown Cbc With Differential Ord2 Lymph% 20.8 % 09/02/19 22 Unknown Cbc With Differential Ord2 MCH 34.6 pg 09/02/19 22 Unknown Cbc With Differential Ord2 Parmer% 11.7 % 09/02/19 22 Unknown Cbc With Differential Ord2 MCHC 33.6 pg 09/02/19 22 Unknown Cbc With Differential Ord2 Eos% 5.2 % 09/02/19 22 Unknown Cbc With Differential Ord2 Baso% 0.9 % 09/02/19 22 Unknown Cbc With Differential Ord2 PLT 164 K/ul 09/02/19 22 Unknown Cbc With Differential Ord2 RDW 13.0 % 09/02/19 Unknown Cbc With Differential Ord2 Neut ABS# 5.97 K/ul 09/02/19 22 Unknown Cbc With Differential Ord2 Lymph ABS# 2.03 K/ul 022 Unknown Cbc With Differential Ord2 Parmer ABS# 1.1 K/ul 09/02/19 22 Unknown Cbc With Differential Ord2 Eos ABS# 0.5 K/ul 09/02/19 22 Unknown Cbc With Differential Ord2 Baso ABS# 0.1 K/ul 09/02/19 22 Unknown Lipid Ord30 CHOL 193 mg/dL 05/28/2020 Unknown Lipid Ord30 HDL 36.0 mg/dl 05/28/2020 Unknown Lipid Ord30 TRIG 326 mg/dL 05/28/2020 Unknown Lipid Ord30 LDL 92 mg/dL 05/28/2020 Unknown Lipid Ord30 C/HDL 5.4 Ratio 05/28/2020 Unknown Total Psa Ord10 PSA 0.73 ng/mL 05/28/2020 Unknown Cbc With Differential Ord2 WBC 9.92 K/ul 05/28/20 Unknown Cbc With Differential Ord2 RBC 4.77 M/ul 05/28/20 Unknown Cbc With Differential Ord2 HGB 16.7 g/dl 05/28/20 Unknown Cbc With Differential Ord2 HCT 49.3 % 05/28/20 Unknown Cbc With Differential Ord2 Neut% 65.6 % 05/28/20 Unknown Cbc With Differential Ord2 MCV 103.4 fl 05/28/20 Unknown Cbc With Differential Ord2 Lymph% 20.4 % 05/28/20 Unknown Cbc With Differential Ord2 Parmer% 10.0 % 05/28/20 Unknown Cbc With Differential Ord2 MCH 35.0 pg 05/28/20 Unknown Cbc With Differential Ord2 Eos% 3.3 % 05/28/20 Unknown Cbc With Differential Ord2 MCHC 33.9 pg 05/28/20 Unknown Cbc With Differential Ord2 Baso% 0.7 % 05/28/20 Unknown Cbc With Differential Ord2 PLT 179 K/ul 05/28/20 Unknown Cbc With Differential Ord2 RDW 12.5 % 05/28/20 Unknown Cbc With Differential Ord2 Neut ABS# 6.51 K/ul 05/28/20 Unknown Cbc With Differential Ord2 Lymph ABS# 2.02 K/ul 10/26/2 020 Unknown Cbc With Differential Ord2 Parmer ABS# 1.0 K/ul 05/28/20 20 Unknown Cbc With Differential Ord2 Eos ABS# 0.3 K/ul 05/28/20 20 Unknown Cbc With Differential Ord2 Baso ABS# 0.1 K/ul 05/28/20 20 Unknown Tsh Ord6 TSH (3rd IS) 1.71 uIU/mL 05/28/2020 Unkn own Comp Metabolic Jzq408 NA 140 mEq/L 05/28/2020 Unkn own Comp Metabolic Cbm948 K 4.2 mEq/L 05/28/2020 Unkn own Comp Metabolic Kie875 CL 95 mEq/L 05/28/2020 Unkn own Comp Metabolic Vqv108 CO2 39.0 mEq/L 05/28/2020 Unk nown Comp Metabolic Aeh046 ANION GAP 10 05/28/2020 Unkn own Comp Metabolic Enl045 GLUCOSE 95 mg/dL 05/28/2020 Unkn own Comp Metabolic Vsk111 Creat 0.9 mg/dL 05/28/2020 Unkn own Comp Metabolic Wet180 eGFR 89 ml/min/1.73m2 05/28/20 20 Unknown Comp Metabolic Yrk349 BUN 12 mg/dL 05/28/2020 Unkn own Comp Metabolic Rmh900 B/C Ratio 13.2 Ratio 05/28/2020 Unk nown Comp Metabolic Kxk181 CALCIUM 9.5 mg/dL 05/28/2020 Unkn own Comp Metabolic Yck251 ALK PHOS 74 U/L 05/28/2020 Unkn own Comp Metabolic Rnh110 AST(SGOT) 28 U/L 05/28/2020 Unkn own Comp Metabolic Biv937 ALT(SGPT) 44 U/L 05/28/2020 Unkn own Comp Metabolic Rkd468 BILI T 1.0 mg/dL 05/28/2020 Unkn own Comp Metabolic Cnm951 ALBUMIN 4.5 g/dL 05/28/2020 Unkn own Comp Metabolic Twm695 TPRO 6.9 g/dL 05/28/2020 Unkn own Comp Metabolic Ziy311 GLOB 2.4 g/dL 05/28/2020 Unkn own Comp Metabolic Fnp298 A/G Ratio 1.9 Ratio 05/28/2020 Unkn own Comp Metabolic Pvk615 Osmo 279 mOsmo 05/28/2020 Unkn own Testosterone Yli260 Testo 291.6 ng/dL 05/28/2020 Unkn own Cbc With Differential Ord2 WBC 6.04 K/ul 07/24/20 17 Unknown Cbc With Differential Ord2 RBC 4.02 M/ul 07/24/20 17 Unknown Cbc With Differential Ord2 HGB 13.6 g/dl 07/24/20 17 Unknown Cbc With Differential Ord2 HCT 41.0 % 07/24/20 17 Unknown Cbc With Differential Ord2 Neut% 66.0 % 07/24/20 17 Unknown Cbc With Differential Ord2 MCV 102.0 fl 07/24/20 17 Unknown Cbc With Differential Ord2 Lymph% 16.7 % 07/24/20 17 Unknown Cbc With Differential Ord2 MCH 33.8 pg 07/24/20 17 Unknown Cbc With Differential Ord2 Parmer% 13.6 % 07/24/20 17 Unknown Cbc With Differential Ord2 MCHC 33.2 pg 07/24/20 17 Unknown Cbc With Differential Ord2 Eos% 3.0 % 07/24/20 17 Unknown Cbc With Differential Ord2 PLT 338 K/ul 07/24/20 17 Unknown Cbc With Differential Ord2 Baso% 0.7 % 07/24/20 17 Unknown Cbc With Differential Ord2 RDW 13.1 % 07/24/20 17 Unknown Cbc With Differential Ord2 Neut ABS# 3.99 K/ul 07/24/20 17 Unknown Cbc With Differential Ord2 Lymph ABS# 1.01 K/ul 017 Unknown Cbc With Differential Ord2 Parmer ABS# 0.8 K/ul 07/24/20 17 Unknown Cbc With Differential Ord2 Eos ABS# 0.2 K/ul 07/24/20 17 Unknown Cbc With Differential Ord2 Baso ABS# 0.0 K/ul 07/24/20 17 Unknown Comp Metabolic Bbc873 NA 133 mEq/L 07/24/2017 Unkn own Comp Metabolic Usx026 K 4.7 mEq/L 07/24/2017 Unkn own Comp Metabolic Zla276 CL 94 mEq/L 07/24/2017 Unkn own Comp Metabolic Qvu198 CO2 33.0 mEq/L 07/24/2017 Unk nown Comp Metabolic Rke233 ANION GAP 11 07/24/2017 Unkn own Comp Metabolic Gjc650 GLUCOSE 114 mg/dL 07/24/2017 Unkn own Comp Metabolic Bkl440 Creat 1.0 mg/dL 07/24/2017 Unkn own Comp Metabolic Eoi251 eGFR 85 ml/min/1.73m2 07/24/20 17 Unknown Comp Metabolic Dtg682 BUN 14 mg/dL 07/24/2017 Unkn own Comp Metabolic Aoq748 B/C Ratio 14.7 Ratio 07/24/2017 Unk nown Comp Metabolic Ayr841 CALCIUM 8.7 mg/dL 07/24/2017 Unkn own Comp Metabolic Qsb052 ALK PHOS 120 U/L 07/24/2017 Unkn own Comp Metabolic Xky664 AST(SGOT) 37 U/L 07/24/2017 Unkn own Comp Metabolic Nhb445 ALT(SGPT) 70 U/L 07/24/2017 Unkn own Comp Metabolic Hbs011 BILI T 0.5 mg/dL 07/24/2017 Unkn own Comp Metabolic Ycg038 ALBUMIN 4.0 g/dL 07/24/2017 Unkn own Comp Metabolic Hkk345 TPRO 6.8 g/dL 07/24/2017 Unkn own Comp Metabolic Nnx958 GLOB 2.8 g/dL 07/24/2017 Unkn own Comp Metabolic Psn424 A/G Ratio 1.4 Ratio 07/24/2017 Unkn own Comp Metabolic Avj961 Osmo 268 mOsmo 07/24/2017 Unkn own Cbc With Differential Ord2 WBC 8.30 K/ul 05/12/20 17 Unknown Cbc With Differential Ord2 RBC 4.44 M/ul 05/12/20 17 Unknown Cbc With Differential Ord2 HGB 15.9 g/dl 05/12/20 17 Unknown Cbc With Differential Ord2 HCT 45.3 % 05/12/20 17 Unknown Cbc With Differential Ord2 Neut% 65.1 % 05/12/20 17 Unknown Cbc With Differential Ord2 MCV 102.0 fl 05/12/20 17 Unknown Cbc With Differential Ord2 Lymph% 20.4 % 05/12/20 17 Unknown Cbc With Differential Ord2 MCH 35.8 pg 05/12/20 17 Unknown Cbc With Differential Ord2 Parmer% 11.4 % 05/12/20 17 Unknown Cbc With Differential Ord2 MCHC 35.1 pg 05/12/20 17 Unknown Cbc With Differential Ord2 Eos% 2.5 % 05/12/20 17 Unknown Cbc With Differential Ord2 PLT 168 K/ul 05/12/20 17 Unknown Cbc With Differential Ord2 Baso% 0.6 % 05/12/20 17 Unknown Cbc With Differential Ord2 RDW 12.9 % 05/12/20 17 Unknown Cbc With Differential Ord2 Neut ABS# 5.40 K/ul 05/12/20 17 Unknown Cbc With Differential Ord2 Lymph ABS# 1.69 K/ul 017 Unknown Cbc With Differential Ord2 Parmer ABS# 1.0 K/ul 05/12/20 17 Unknown Cbc With Differential Ord2 Eos ABS# 0.2 K/ul 05/12/20 17 Unknown Cbc With Differential Ord2 Baso ABS# 0.1 K/ul 05/12/20 17 Unknown Tsh Ord6 hTSH II 1.72 uIU/mL 05/12/2017 Unknown Total Psa Ord10 PSA 0.70 ng/mL 05/12/2017 Unknown Lipid Ord30 CHOL 175 mg/dL 05/12/2017 Unknown Lipid Ord30 HDL 37.0 mg/dl 05/12/2017 Unknown Lipid Ord30 TRIG 195 mg/dL 05/12/2017 Unknown Lipid Ord30 LDL 99 mg/dL 05/12/2017 Unknown Lipid Ord30 C/HDL 4.7 Ratio 05/12/2017 Unknown Comp Metabolic Yjp063 NA 142 mEq/L 05/12/2017 Unkn own Comp Metabolic Yaj564 K 3.8 mEq/L 05/12/2017 Unkn own Comp Metabolic Ppe365 CL 100 mEq/L 05/12/2017 Unkn own Comp Metabolic Fgz673 CO2 34.0 mEq/L 05/12/2017 Unk nown Comp Metabolic Nsa799 ANION GAP 12 05/12/2017 Unkn own Comp Metabolic Tht788 GLUCOSE 106 mg/dL 05/12/2017 Unkn own Comp Metabolic Bsj367 Creat 0.9 mg/dL 05/12/2017 Unkn own Comp Metabolic Pfe841 eGFR 96 ml/min/1.73m2 05/12/20 17 Unknown Comp Metabolic Ake240 BUN 9 mg/dL 05/12/2017 Unkn own Comp Metabolic Rso094 B/C Ratio 10.5 Ratio 05/12/2017 Unk nown Comp Metabolic Njj999 CALCIUM 9.6 mg/dL 05/12/2017 Unkn own Comp Metabolic Xsz005 ALK PHOS 77 U/L 05/12/2017 Unkn own Comp Metabolic Pkt159 AST(SGOT) 33 U/L 05/12/2017 Unkn own Comp Metabolic Gst815 ALT(SGPT) 52 U/L 05/12/2017 Unkn own Comp Metabolic Fuk131 BILI T 0.8 mg/dL 05/12/2017 Unkn own Comp Metabolic Mjv160 ALBUMIN 4.6 g/dL 05/12/2017 Unkn own Comp Metabolic Nwd446 TPRO 6.6 g/dL 05/12/2017 Unkn own Comp Metabolic Lun190 GLOB 2.0 g/dL 05/12/2017 Unkn own Comp Metabolic Rhz637 A/G Ratio 2.3 Ratio 05/12/2017 Unkn own Comp Metabolic Fmz516 Osmo 282 mOsmo 05/12/2017 Unkn own Tsh Ord6 hTSH II 1.97 uIU/mL 11/13/2015 Unknown Lipid Ord30 CHOL 193 mg/dL 11/13/2015 Unknown Lipid Ord30 HDL 39.0 mg/dl 11/13/2015 Unknown Lipid Ord30 TRIG 259 mg/dL 11/13/2015 Unknown Lipid Ord30 LDL 102 mg/dL 11/13/2015 Unknown Lipid Ord30 C/HDL 4.9 Ratio 11/13/2015 Unknown Cbc With Differential Ord2 WBC 10.90 K/ul 016 Unknown Cbc With Differential Ord2 RBC 4.81 M/ul 11/13/19 16 Unknown Cbc With Differential Ord2 HGB 16.1 g/dl 11/13/19 16 Unknown Cbc With Differential Ord2 HCT 46.5 % 11/13/19 16 Unknown Cbc With Differential Ord2 Neut% 66.2 % 11/13/19 16 Unknown Cbc With Differential Ord2 MCV 96.7 fl 11/13/19 16 Unknown Cbc With Differential Ord2 Lymph% 17.8 % 11/13/19 16 Unknown Cbc With Differential Ord2 MCH 33.5 pg 11/13/19 16 Unknown Cbc With Differential Ord2 Parmer% 12.2 % 11/13/19 16 Unknown Cbc With Differential Ord2 MCHC 34.6 pg 11/13/19 16 Unknown Cbc With Differential Ord2 Eos% 3.2 % 11/13/19 16 Unknown Cbc With Differential Ord2 PLT 212 K/ul 11/13/19 16 Unknown Cbc With Differential Ord2 Baso% 0.6 % 11/13/19 16 Unknown Cbc With Differential Ord2 RDW 13.2 % 11/13/19 16 Unknown Cbc With Differential Ord2 Neut ABS# 7.22 K/ul 11/13/19 16 Unknown Cbc With Differential Ord2 Lymph ABS# 1.94 K/ul 016 Unknown Cbc With Differential Ord2 Parmer ABS# 1.3 K/ul 11/13/19 16 Unknown Cbc With Differential Ord2 Eos ABS# 0.4 K/ul 11/13/19 16 Unknown Cbc With Differential Ord2 Baso ABS# 0.1 K/ul 11/13/19 16 Unknown Cbc With Differential Ord2 New Analyzer Notice Please note new ref ranges starting 08-15-2015 due to implemntation of new five part differential hematolgy analyzer. 11/13/2015 Unknown Comp Metabolic Tvl730 NA 138 mEq/L 11/13/2015 Unkn own Comp Metabolic Byg597 K 4.1 mEq/L 11/13/2015 Unkn own Comp Metabolic Jxf129 CL 95 mEq/L 11/13/2015 Unkn own Comp Metabolic Gsx073 CO2 34.0 mEq/L 11/13/2015 Unk nown Comp Metabolic Nqc274 ANION GAP 13 11/13/2015 Unkn own Comp Metabolic Yky247 GLUCOSE 98 mg/dL 11/13/2015 Unkn own Comp Metabolic Kyv782 Creat 0.9 mg/dL 11/13/2015 Unkn own Comp Metabolic Mhf555 eGFR 94 ml/min/1.73m2 11/13/19 16 Unknown Comp Metabolic Ilb473 BUN 14 mg/dL 11/13/2015 Unkn own Comp Metabolic Zuz105 B/C Ratio 15.9 Ratio 11/13/2015 Unk nown Comp Metabolic Nbw133 CALCIUM 9.7 mg/dL 11/13/2015 Unkn own Comp Metabolic Pqc827 ALK PHOS 83 U/L 11/13/2015 Unkn own Comp Metabolic Zlv789 AST(SGOT) 26 U/L 11/13/2015 Unkn own Comp Metabolic Kmo296 ALT(SGPT) 33 U/L 11/13/2015 Unkn own Comp Metabolic Uoq121 BILI T 1.1 mg/dL 11/13/2015 Unkn own Comp Metabolic Mdn814 ALBUMIN 4.7 g/dL 11/13/2015 Unkn own Comp Metabolic Pde269 TPRO 7.3 g/dL 11/13/2015 Unkn own Comp Metabolic Dxd102 GLOB 2.6 g/dL 11/13/2015 Unkn own Comp Metabolic Iyp153 A/G Ratio 1.8 Ratio 11/13/2015 Unkn own Comp Metabolic Vsx816 Osmo 276 mOsmo 11/13/2015 Unkn own Comp Metabolic Veg475 NA 134 mEq/L 05/29/2015 Unkn own Comp Metabolic Gcy312 K 4.5 mEq/L 05/29/2015 Unkn own Comp Metabolic Tqp065 CL 92 mEq/L 05/29/2015 Unkn own Comp Metabolic Vxn060 CO2 35.0 mEq/L 05/29/2015 Unk nown Comp Metabolic Bzc369 ANION GAP 12 05/29/2015 Unkn own Comp Metabolic Taz746 GLUCOSE 91 mg/dL 05/29/2015 Unkn own Comp Metabolic Lng899 Creat 0.9 mg/dL 05/29/2015 Unkn own Comp Metabolic Bfq879 eGFR 88 ml/min/1.73m2 05/29/20 15 Unknown Comp Metabolic Guq301 BUN 17 mg/dL 05/29/2015 Unkn own Comp Metabolic Wzg954 B/C Ratio 18.3 Ratio 05/29/2015 Unk nown Comp Metabolic Ohy824 CALCIUM 9.9 mg/dL 05/29/2015 Unkn own Comp Metabolic Ysf412 ALK PHOS 103 U/L 05/29/2015 Unkn own Comp Metabolic Jpg027 AST(SGOT) 77 U/L 05/29/2015 Unkn own Comp Metabolic Vey134 ALT(SGPT) 199 U/L 05/29/2015 Unkn own Comp Metabolic Nwi766 BILI T 1.7 mg/dL 05/29/2015 Unkn own Comp Metabolic Ehe509 ALBUMIN 4.5 g/dL 05/29/2015 Unkn own Comp Metabolic Kos118 TPRO 7.0 g/dL 05/29/2015 Unkn own Comp Metabolic Umb707 GLOB 2.5 g/dL 05/29/2015 Unkn own Comp Metabolic Ofu385 A/G Ratio 1.8 Ratio 05/29/2015 Unkn own Comp Metabolic Vib623 Osmo 269 mOsmo 05/29/2015 Unkn own Cbc With Differential Ord2 WBC 11.9 K/uL 05/29/20 15 Unknown Cbc With Differential Ord2 LYM 1.7 K/uL 05/29/20 15 Unknown Cbc With Differential Ord2 LYM% 14.6 % 05/29/20 15 Unknown Cbc With Differential Ord2 NEUT/GRAN 9.4 K/uL 05/29/20 15 Unknown Cbc With Differential Ord2 NEUT/GRAN % 78.6 % 2014 Unknown Cbc With Differential Ord2 MID 0.8 K/uL 05/29/20 15 Unknown Cbc With Differential Ord2 MID% 6.8 % 05/29/20 15 Unknown Cbc With Differential Ord2 RBC 5.02 M/uL 05/29/20 15 Unknown Cbc With Differential Ord2 HGB 16.0 g/dL 05/29/20 15 Unknown Cbc With Differential Ord2 HCT 51.1 % 05/29/20 15 Unknown Cbc With Differential Ord2 MCV 102 fL 05/29/20 15 Unknown Cbc With Differential Ord2 MCH 32 pg 05/29/20 15 Unknown Cbc With Differential Ord2 MCHC 31 g/dL 05/29/20 15 Unknown Cbc With Differential Ord2 PLT 205 K/uL 05/29/20 15 Unknown Cbc With Differential Ord2 RDW 14.2 % 05/29/20 15 Unknown Comp Metabolic Rqi206 NA 136 mEq/L 05/21/2015 Unkn own Comp Metabolic Lun788 K 4.8 mEq/L 05/21/2015 Unkn own Comp Metabolic Zsw880 CL 98 mEq/L 05/21/2015 Unkn own Comp Metabolic Ahx712 CO2 32.0 mEq/L 05/21/2015 Unk nown Comp Metabolic Van668 ANION GAP 11 05/21/2015 Unkn own Comp Metabolic Jwt534 GLUCOSE 107 mg/dL 05/21/2015 Unkn own Comp Metabolic Qns925 Creat 1.0 mg/dL 05/21/2015 Unkn own Comp Metabolic Rkh365 eGFR 86 ml/min/1.73m2 05/21/20 15 Unknown Comp Metabolic Cxc977 BUN 12 mg/dL 05/21/2015 Unkn own Comp Metabolic Qay034 B/C Ratio 12.6 Ratio 05/21/2015 Unk nown Comp Metabolic Kwp365 CALCIUM 9.2 mg/dL 05/21/2015 Unkn own Comp Metabolic Zfv051 ALK PHOS 70 U/L 05/21/2015 Unkn own Comp Metabolic Bvy538 AST(SGOT) 22 U/L 05/21/2015 Unkn own Comp Metabolic Lst227 ALT(SGPT) 32 U/L 05/21/2015 Unkn own Comp Metabolic Tqb628 BILI T 1.3 mg/dL 05/21/2015 Unkn own Comp Metabolic Weu323 ALBUMIN 4.2 g/dL 05/21/2015 Unkn own Comp Metabolic Vwl088 TPRO 6.3 g/dL 05/21/2015 Unkn own Comp Metabolic Mut112 GLOB 2.1 g/dL 05/21/2015 Unkn own Comp Metabolic Zlp192 A/G Ratio 2.0 Ratio 05/21/2015 Unkn own Comp Metabolic Ful609 Osmo 272 mOsmo 05/21/2015 Unkn own Lipid Ord30 CHOL 147 mg/dL 05/21/2015 Unknown Lipid Ord30 HDL 37.0 mg/dl 05/21/2015 Unknown Lipid Ord30 TRIG 70 mg/dL 05/21/2015 Unknown Lipid Ord30 LDL 96 mg/dL 05/21/2015 Unknown Lipid Ord30 C/HDL 4.0 Ratio 05/21/2015 Unknown Cbc With Differential Ord2 WBC 11.9 K/uL 05/21/20 15 Unknown Cbc With Differential Ord2 LYM 1.6 K/uL 05/21/20 15 Unknown Cbc With Differential Ord2 LYM% 13.4 % 05/21/20 15 Unknown Cbc With Differential Ord2 NEUT/GRAN 9.6 K/uL 05/21/20 15 Unknown Cbc With Differential Ord2 NEUT/GRAN % 80.6 % 2014 Unknown Cbc With Differential Ord2 MID 0.7 K/uL 05/21/20 15 Unknown Cbc With Differential Ord2 MID% 6.0 % 05/21/20 15 Unknown Cbc With Differential Ord2 RBC 4.67 M/uL 05/21/20 15 Unknown Cbc With Differential Ord2 HGB 15.1 g/dL 05/21/20 15 Unknown Cbc With Differential Ord2 HCT 47.5 % 05/21/20 15 Unknown Cbc With Differential Ord2 MCV 102 fL 05/21/20 15 Unknown Cbc With Differential Ord2 MCH 32 pg 05/21/20 15 Unknown Cbc With Differential Ord2 MCHC 32 g/dL 05/21/20 15 Unknown Cbc With Differential Ord2 PLT 195 K/uL 05/21/20 15 Unknown Cbc With Differential Ord2 RDW 14.0 % 05/21/20 15 Unknown Procedures Procedure Codes Date THER/PROPH/DIAG INJ SC/IM CPT-4: 21119 07/08/2022 TRIAMCINOLONE ACET INJ NOS 10 mg CPT-4: J3301 022 THER/PROPH/DIAG INJ SC/IM CPT-4: 29572 07/08/2022 ROCEPHIN, PER 250 MG CPT-4: J0696 07/08/2022 ROCEPHIN, PER 250 MG CPT-4: J0696 05/31/2020 THER/PROPH/DIAG INJ SC/IM CPT-4: 54804 05/31/2020 TRIAMCINOLONE ACET INJ NOS 10 mg CPT-4: J3301 020 TRIAMCINOLONE ACET INJ NOS 10 mg CPT-4: J3301 018 ROCEPHIN, PER 250 MG CPT-4: J0696 07/29/2018 TRIAMCINOLONE ACET INJ NOS 10 mg CPT-4: J3301 018 ROCEPHIN, PER 250 MG CPT-4: J0696 11/23/2017 TRIAMCINOLONE ACET INJ NOS 10 mg CPT-4: J3301 017 TRIAMCINOLONE ACET INJ NOS 10 mg CPT-4: J3301 017 TOBACCO-USE FISHER SWORDFISH 3-[address]: [id number] CPT-4: G0436 11/11/2016 IMMUNIZATION ADMIN CPT-4: 98543 05/13/2016 IIV4 FLU VACC NO PRESERV ID Formatting Model/CDA Sections, Assigned to/Kiki Mcguire SNOMED CT: [id number] CPT-4: 10202Kmxolbn 05/13/2016 THER/PROPH/DIAG INJ SC/IM CPT-4: 44867 03/18/2016 TRIAMCINOLONE ACET INJ NOS 10 mg CPT-4: J3301 016 Vital Signs Date Vital 09/29/2022 Blood Pressure 1: 162/70 Code: 8480-6 BMI: 29.8 Code: 81004-8 Heart Rate 1: 76 bpm Height: 5'10" Code: 8302-2 SpO2: 93% Temperature: 36.3 (C) / 97.4 (F) Weight: 208 lbs Code: 16079-9 09/09/2022 Blood Pressure 1: 122/84 Code: 8480-6 Heart Rate 1: 100 bpm Height: 5'10" Code: 8302-2 SpO2: 93% Temperature: 36.2 (C) / 97.1 (F) 08/07/2022 Blood Pressure 1: 132/72 Code: 8480-6 BMI: 30.6 Code: 85945-5 Heart Rate 1: 74 bpm Height: 5'10" Code: 8302-2 SpO2: 94% Temperature: 36.2 (C) / 97.2 (F) Weight: 213 lbs Code: 60552-5 07/08/2022 Blood Pressure 1: 150/88 Code: 8480-6 BMI: 30.0 Code: 07152-8 Heart Rate 1: 51 bpm Height: 5'10" Code: 8302-2 Respiratory Rate: 17 bpm SpO2: 93% Temperature: 36.2 (C) / 97.2 (F) Weight: 209 lbs Code: 25618-6 01/23/2022 Blood Pressure 1: 146/86 Code: 8480-6 BMI: 30.3 Code: 04714-5 Heart Rate 1: 70 bpm Height: 5'10" Code: 8302-2 Respiratory Rate: 18 bpm SpO2: 90% Temperature: 36.3 (C) / 97.3 (F) Weight: 211 lbs Code: 35582-2 12/25/2021 Blood Pressure 1: 138/84 Code: 8480-6 BMI: 30.1 Code: 80311-8 Heart Rate 1: 84 bpm Height: 5'10" Code: 8302-2 Respiratory Rate: 22 bpm SpO2: 94% Temperature: 36.4 (C) / 97.5 (F) Weight: 210 lbs Code: 64331-9 12/02/2021 Blood Pressure 1: 140/87 Code: 8480-6 BMI: 30.7 Code: 10279-8 Heart Rate 1: 78 bpm Height: 5'10" Code: 8302-2 SpO2: 93% Temperature: 35.8 (C) / 96.5 (F) Weight: 214 lbs Code: 05131-1 09/25/2021 Blood Pressure 1: 144/86 Code: 8480-6 Heart Rate 1: 84 bpm Height: Code: 8302-2 Respiratory Rate: 19 bpm SpO2: 93% Temperature: 36 .6 (C) / 97.8 (F) Weight: Code: 01899-3 08/29/2021 Blood Pressure 1: 142/86 Code: 8480-6 BMI: 30.8 Code: 38829-3 Heart Rate 1: 73 bpm Height: 5'10" Code: 8302-2 Respiratory Rate: 17 bpm SpO2: 93% Temperature: 36.4 (C) / 97.6 (F) Weight: 215 lbs Code: 09703-0 02/27/2021 Blood Pressure 1: 156/80 Code: 8480-6 BMI: 29.8 Code: 94886-3 Heart Rate 1: 74 bpm Height: 5'10" Code: 8302-2 Respiratory Rate: 16 bpm SpO2: 94% Temperature: 36.1 (C) / 97.0 (F) Weight: 208 lbs Code: 51178-2 10/30/2020 Blood Pressure 1: 128/76 Code: 8480-6 BMI: 30.6 Code: 24040-8 Heart Rate 1: 76 bpm Height: 5'10" Code: 8302-2 SpO2: 92% Temperature: 36.3 (C) / 97.4 (F) Weight: 213 lbs Code: 97470-5 05/31/2020 Blood Pressure 1: 128/70 Code: 8480-6 BMI: 29.3 Code: 44495-1 Heart Rate 1: 76 bpm Height: 5'10" Code: 8302-2 Respiratory Rate: 19 bpm SpO2: 94% Temperature: 36.9 (C) / 98.4 (F) Weight: 204 lbs Code: 52382-1 08/12/2018 SpO2: 92% 08/09/2018 Blood Pressure 1: 156/80 Code: 8480-6 BMI: 29.8 Code: 93541-2 Heart Rate 1: 72 bpm Height: 5'10" Code: 8302-2 SpO2: 91% Weight: 208 l bs Code: 24390-0 07/29/2018 Blood Pressure 1: 140/82 Code: 8480-6 BMI: 29.8 Code: 63025-9 Heart Rate 1: 85 bpm Height: 5'10" Code: 8302-2 SpO2: 84% Temperature: 37.7 (C) / 99.8 (F) Weight: 208 lbs Code: 85821-7 11/23/2017 Blood Pressure 1: 118/68 Code: 8480-6 BMI: 30.4 Code: 19542-6 Heart Rate 1: 73 bpm Height: 5'10" Code: 8302-2 SpO2: 95% Temperature: 37.1 (C) / 98.8 (F) Weight: 212 lbs Code: 79377-0 11/10/2017 Blood Pressure 1: 138/78 Code: 8480-6 BMI: 30.1 Code: 77342-0 Heart Rate 1: 76 bpm Height: 5'10" Code: 8302-2 SpO2: 98% Weight: 210 l bs Code: 13384-0 08/04/2017 Blood Pressure 1: 124/76 Code: 8480-6 BMI: 29.4 Code: 98973-8 Heart Rate 1: 89 bpm Height: 5'10" Code: 8302-2 SpO2: 93% Temperature: 37.4 (C) / 99.3 (F) Weight: 205 lbs Code: 78024-1 07/23/2017 Blood Pressure 1: 130/60 Code: 8480-6 BMI: 29.3 Code: 16481-1 Heart Rate 1: 85 bpm Height: 5'10" Code: 8302-2 SpO2: 92% Temperature: 37.0 (C) / 98.6 (F) Weight: 204 lbs Code: 32018-3 05/12/2017 Blood Pressure 1: 146/80 Code: 8480-6 BMI: 30.6 Code: 84038-0 Heart Rate 1: 78 bpm Height: 5'10" Code: 8302-2 SpO2: 96% Weight: 213 l bs Code: 03318-8 01/15/2017 Blood Pressure 1: 140/78 Code: 8480-6 BMI: 29.7 Code: 52077-6 Heart Rate 1: 70 bpm Height: 5'10" Code: 8302-2 SpO2: 93% Weight: 210 l bs Code: 77481-3 11/11/2016 Blood Pressure 1: 162/86 Code: 8480-6 Bl ood Pressure 1: 138/88 Code: 8480-6 BMI: 29.7 Code: 61723-2 Heart Rate 1: 62 bpm Height: 5'10" Code: 8302-2 SpO2: 98% Weight: 210 lbs Code: 73834-5 05/13/2016 Blood Pressure 1: 130/70 Code: 8480-6 BMI: 29.0 Code: 95982-4 Heart Rate 1: 60 bpm Height: 5'10" Code: 8302-2 SpO2: 91% Weight: 205 l bs Code: 80656-2 11/13/2015 Blood Pressure 1: 136/86 Code: 8480-6 BMI: 29.3 Code: 38350-0 Heart Rate 1: 56 bpm Height: 5'10" Code: 8302-2 SpO2: 94% Weight: 207 l bs Code: 05326-0 08/14/2015 Blood Pressure 1: 138/68 Code: 8480-6 BMI: 29.1 Code: 17852-6 Heart Rate 1: 96 bpm Height: 5'10" Code: 8302-2 SpO2: 98% Weight: 206 l bs Code: 59313-0 06/11/2015 Blood Pressure 1: 120/72 Code: 8480-6 BMI: 27.2 Code: 08998-0 Heart Rate 1: 87 bpm Height: 5'10" Code: 8302-2 SpO2: 93% Weight: 192 l bs 8 oz Code: 63889-5 05/30/2015 Blood Pressure 1: 110/80 Code: 8480-6 Heart Rate 1: 147 bpm SpO2: 96% 05/21/2015 Blood Pressure 1: 124/60 Code: 8480-6 BMI: 29.1 Code: 27164-2 Heart Rate 1: 59 bpm Heart Rate 1: 120 bpm Height: 5'10" Code: 8302-2 SpO2: 97% Weight: 206 lbs Code: 83252-6 Functional Status No Functional Status data Reason For Visit Reason For Visit Effective Dates Notes Hospital Follow Up 09/29/2022 shortness of breath 09/09/2022 chest congestion 09/09/2022 shortness of breath 08/07/2022 chest congestion 08/07/2022 shortness of breath 07/08/2022 chest congestion 07/08/2022 chest congestion 01/23/2022 hypertension 12/25/2021 shortness of breath 12/25/2021 chest congestion 12/25/2021 cough 12/02/2021 shortness of breath 12/02/2021 shortness of breath 09/25/2021 hypertension 08/29/2021 shortness of breath 08/29/2021 chest congestion 08/29/2021 hypertension 02/27/2021 sinus congestion 10/30/2020 cough 10/30/2020 hypertension 05/31/2020 chest congestion 05/31/2020 cough 08/09/2018 cough 07/29/2018 cough 11/23/2017 hypertension 11/10/2017 sinus congestion 08/04/2017 fever 08/04/2017 sinus congestion 07/23/2017 fever 07/23/2017 hypertension 05/12/2017 skin lesion 05/12/2017 rash 01/15/2017 hypertension 11/11/2016 hypertension 05/13/2016 vaccination against influenza 05/13/2016 hypertension 11/13/2015 blood pressure followup 08/14/2015 Hospital Follow Up 06/11/2015 ~generic 05/30/2015 tachycardia shortness of breath 05/21/2015 edema 05/21/2015 Encounters Encounter Performer Location Location Address Codes Date [id number]) [id number] EST. PATIENT, LEVEL IV Diagnosis: COPD (chronic obstructive pulmonary disease)[ICD10: J44.9] Diagnosis: Paroxysmal A-fib[ICD10: I48.0] Diagnosis: Essential (primary) hypertension[ICD10: I10] Mela Nicolas MD, [facility] [address] [place] [address] CPT-4: 9921 4 09/29/2022 ([id number]) 34031 EST. PATIENT, LEVEL III Diagnosis: Chronic obstructive pulmonary disease with (acute) exacerbation[ICD10: J44.1] Tasha Nicolas MD, [facility] [address] [place] [address] CPT-4: 30445 09/09/2022 ([id number]) 54708 EST. PATIENT, LEVEL IV Diagnosis: Chronic obstructive pulmonary disease with (acute) exacerbation[ICD10: J44.1] Diagnosis: Incidental lung nodule[ICD10: R91.1] Diagnosis: Cough in adult[ICD10: R05.9] Tasha Nicolas MD, [facility] [address] [place] [address] CPT-4: 54592 08/07 ([id number]) 87216 EST. PATIENT, LEVEL IV Diagnosis: Chronic obstructive pulmonary disease with (acute) exacerbation[ICD10: J44.1] Diagnosis: Cough productive of yellow sputum[ICD10: R05.8] Diagnosis: Hypoxemia[ICD10: R09.02] [facility] [address] [place] [address] CPT-4: 12252 07/08/2022 ([id number]) 22035 EST. PATIENT, LEVEL IV Diagnosis: COPD with exacerbation[ICD10: J44.1] Diagnosis: Elevated liver enzymes[ICD10: R74.8] Diagnosis: Cough productive of yellow sputum[ICD10: R05.8] Tasha Nicolas MD, [facility] [address] [place] [address] CPT-4: 9921 4 01/23/2022 ([id number]) 97471 EST. PATIENT, LEVEL IV Diagnosis: Essential (primary) hypertension[ICD10: I10] Diagnosis: Panlobular emphysema[ICD10: J43.1] Diagnosis: Elevated liver enzymes[ICD10: R74.8] Tasha Nicolas MD, [facility] [address] [place] [address] CPT-4: 9921 4 12/25/2021 ([id number]) 04770 EST. PATIENT, LEVEL III Diagnosis: Chronic obstructive pulmonary disease with (acute) exacerbation[ICD10: J44.1] Mela Nicolas MD, [facility] [address] [place] [address] CPT-4: 88321 12/02/2021 ([id number]) 79914 EST. PATIENT, LEVEL IV Diagnosis: COPD with exacerbation[ICD10: J44.1] Diagnosis: Shortness of breath[ICD10: R06.02] Diagnosis: Tobacco use[ICD10: Z72.0] Diagnosis: Essential (primary) hypertension[ICD10: I10] Tasha Nicolas MD, [facility] [address] [place] [address] CPT-4: 9921 4 09/25/2021 ([id number]) 10317 EST. PATIENT, LEVEL IV Diagnosis: Essential (primary) hypertension[ICD10: I10] Diagnosis: COPD with exacerbation[ICD10: J44.1] Diagnosis: Cough productive of yellow sputum[ICD10: R05.8] Diagnosis: Mixed hyperlipidemia[ICD10: E78.2] Tasha christianson MD, [facility] [address] [place] [address] CPT-4: 9921 4 08/29/2021 ([id number]) 27634 EST. PATIENT, LEVEL IV Diagnosis: Essential (primary) hypertension[ICD10: I10] Diagnosis: COPD with exacerbation[ICD10: J44.1] Tasha Nicolas MD, [facility] [address] [place] [address] CPT-4: 9921 4 02/27/2021 ([id number]) 11278 EST. PATIENT, LEVEL III Diagnosis: Essential (primary) hypertension[ICD10: I10] Diagnosis: COPD with exacerbation[ICD10: J44.1] Tasha Nicolas MD, [facility] [address] [place] [address] CPT-4: 9921 3 10/30/2020 ([id number]) PREV VISIT EST AGE 40-64 Diagnosis: Encounter for general adult medical examination with abnormal findings[ICD10: Z00.01] Tasha Nicolas MD, [facility] [address] [place] [address] CPT-4: 65936 05/31/2020 ([id number]) 18332 EST. PATIENT, LEVEL I Diagnosis: COPD with exacerbation[ICD10: J44.1] Diagnosis: Cough[ICD10: R05] Diagnosis: Pneumonia of right lower lobe due to infectious organism[ICD10: J18.9] Tasha Nicolas MD, [facility] [address] [place] [address] CPT-4: 82023 05/31/2020 ([id number]) Miscellaneous no charge Diagnosis: Chronic obstructive pulmonary disease with (acute) exacerbation[ICD10: J44.1] Mela Nicolas MD, [facility] [address] [place] [address] CPT-4: 05132 08/12/2018 ([id number]) 60782 EST. PATIENT, LEVEL III Diagnosis: Cough[ICD10: R05] Diagnosis: Chronic obstructive pulmonary disease with (acute) exacerbation[ICD10: J44.1] Mela Nicolas MD, [facility] [address] [place] [address] CPT-4: 17132 08/09/2018 ([id number]) 68619 EST. PATIENT, LEVEL IV Diagnosis: Chronic obstructive pulmonary disease with (acute) exacerbation[ICD10: J44.1] Diagnosis: Cough[ICD10: R05] Diagnosis: Hypoxemia[ICD10: R09.02] Diagnosis: Essential (primary) hypertension[ICD10: I10] Mela Nicolas MD, [facility] [address] [place] [address] CPT-4: 9921 4 07/29/2018 ([id number]) 03703 EST. PATIENT, LEVEL III Diagnosis: Cough[ICD10: R05] Diagnosis: Chronic obstructive pulmonary disease with (acute) exacerbation[ICD10: J44.1] Mela Nicolas MD, [facility] [address] [place] [address] CPT-4: 84155 11/23/2017 ([id number]) 81879 EST. PATIENT, LEVEL III Diagnosis: Essential (primary) hypertension[ICD10: I10] Diagnosis: Tobacco use[ICD10: Z72.0] Mela Nicolas MD, [facility] [address] [place] [address] CPT-4: 56311 11/10 ([id number]) 97507 EST. PATIENT, LEVEL IV Diagnosis: Essential (primary) hypertension[ICD10: I10] Diagnosis: Shortness of breath[ICD10: R06.02] Diagnosis: Tobacco use[ICD10: Z72.0] Tasha Nicolas MD, [facility] [address] [place] [address] CPT-4: 88858 08/04/2017 82105 EST. PATIENT, LEVEL III Diagnosis: Acute bronchitis due to other specified organisms[ICD10: J20.8] Diagnosis: Cough[ICD10: R05] Diagnosis: Fever, unspecified[ICD10: R50.9] Cristy Walton, [facility] [address] [place] [address] CPT-4: 45003 07/23 ([id number]) 55031 EST. PATIENT, LEVEL IV Diagnosis: Essential (primary) hypertension[ICD10: I10] Diagnosis: Mixed hyperlipidemia[ICD10: E78.2] Diagnosis: Encounter for screening for malignant neoplasm of prostate[ICD10: Z12.5] Diagnosis: Laceration without foreign body of right hand, initial encounter[ICD10: S61.411A] Mela Nicolas MD, [facility] [address] [place] [address] CPT-4: 05423 05/12/2017 ([id number]) 86056 EST. PATIENT, LEVEL III Diagnosis: Allergic contact dermatitis due to plants, except food[ICD10: L23.7] Mela Nicolas MD, [facility] [address] [place] [address] CPT-4: 91334 01/15/2017 ([id number]) 25899 EST. PATIENT, LEVEL III Diagnosis: Essential (primary) hypertension[ICD10: I10] Diagnosis: Tobacco use[ICD10: Z72.0] Diagnosis: Mixed hyperlipidemia[ICD10: E78.2] Diagnosis: Encounter for screening for malignant neoplasm of prostate[ICD10: Z12.5] Mela Nicolas MD, [facility] [address] [place] [address] CPT-4: 66753 11/11/2016 ([id number]) 58908 EST. PATIENT, LEVEL III Diagnosis: Essential (primary) hypertension[ICD10: I10] Mela Nicolas MD, [facility] [address] [place] [address] CPT-4: 9921 3 05/13/2016 ([id number]) 04177 EST. PATIENT, LEVEL III Diagnosis: Essential (primary) hypertension[ICD10: I10] Mela Nicolas MD, [facility] [address] [place] [address] CPT-4: 9921 3 11/13/2015 ([id number]) 00580 EST. PATIENT, LEVEL IV Diagnosis: Idiopathic sleep related nonobstructive alveolar hypoventilation[ICD10: G47.34] Diagnosis: Chronic atrial fibrillation[ICD10: I48.2] Diagnosis: Edema, unspecified[ICD10: R60.9] Mela salcedo MD, [facility] [address] [place] [address] CPT-4: 9921 4 08/14/2015 ([id number]) 93078 EST. PATIENT, LEVEL IV Diagnosis: Chronic atrial fibrillation[ICD10: I48.2] Diagnosis: Idiopathic sleep related nonobstructive alveolar hypoventilation[ICD10: G47.34] Tasha Nicolas MD, [facility] [address] [place] [address] CPT-4: 66173 06/11/2015 ([id number]) Patient admitted to [facility] from clinic (NO CHARGE) Diagnosis: Tachycardia, unspecified[ICD10: R00.0] Tasha Blas MD, [facility] [address] [place] [address] CPT-4: 9921 2N 05/30/2015 ([id number]) Patient admitted to the [facility] from clinic (NO CHARGE) Diagnosis: Encounter for other general examination[ICD10: Z00.8] Diagnosis: Tobacco use[ICD10: Z72.0] Diagnosis: Edema, unspecified[ICD10: R60.9] Diagnosis: Tachycardia, unspecified[ICD10: R00.0] Diagnosis: Shortness of breath[ICD10: R06.02] Tasha christianson MD, [facility] [address] [place] [address] CPT-4: 9921 2N 05/21/2015 Plan of Care Planned Activity Notes Codes Status Date Visit Plan: Hypertension - well controll ed - continue with current medications, continue with no added salt diet. Pt has been encouraged to exercise daily. The pt has been advised to call the office if there are any acute concerns about change in blood pressure readings at home. Atrial Fibrillation - pt on chronic anticoagulation and is currently rate controlled. The pt is to have labs done as appropriate to monitor medication levels and is to report if they start to feel as if their heart rate is becoming uncontrolled. COPD - chronic problem for this patient - patient is going to schedule with Dr Roque for pulmonology - We have reviewed chronic treatment strategy, symptom control, and plans for acute exacerbations. No changes today to the current treatment plan as the patient is stable, monitor for acute changes. 09/29/2022 Appointment: Mela Stern WPtel: [address] [place], [place] [phone] (30 min) Complex 09/29/2022 Patient Education: Patient Medication Summary Completed 09/29/2022 Patient Education: Hypertension Completed 09/29/2022 Visit Plan: COPD exacerbation - steroids sent to pharmacy - as were antibiotics - continue with breathing treatments - we will try to get him in to see Diana Alvarenga instead of Dr. Garcia as was scheduled despite pt wanting to be seen in Diana's clinic. 09/09/2022 Appointment: [facility]Ptel[phone] (15 min) Moderate 09/09/2022 Patient Education: Patient Medication Summary Completed 09/09/2022 Visit Plan: COPD EXACERBATION - COPD is a chronic problem for this patient, however, the pt is experiencing an acute exacerbation of the COPD. Pt is to receive appropriate treatment as an out patient, but the pt is aware that if symptoms worsen or do not improve, to call [facility] for instructions, or go to the EMERGENCY ROOM if the symptoms are beyond acute control with rescue medications. We have reviewed chronic treatment strategy, symptom control, and plans for acute exacerbations. No changes today to the current treatment plan as the patient is stable, monitor for acute changes. Sample of trelegy sent with eloise ent today, referral to Diana Timmons NP for pulmonology, Pt needs CT scan of chest - pt had been advised of need previously, did not call back to have the imaging scheduled. WE will get him scheduled [facility] with plans for the pulmonology referral and CT scan 08/07/2022 Appointment: Tasha Nicolas WPtel: [address] [phone] (15 min) Moderate 08/07/2022 Patient Education: Patient Medication Summary Completed 08/07/2022 Patient Education: Obesity Completed 0 08/07/2022 Visit Plan: COPD EXACERBATION - COPD is a chronic problem for this patient, however, the pt is experiencing an acute exacerbation of the COPD. Pt is to receive appropriate treatment as an out patient, but the pt is aware that if symptoms worsen or do not improve, to call [facility] for instructions, or go to the EMERGENCY ROOM if the symptoms are beyond acute control with rescue medications. We have reviewed chronic treatment strategy, symptom control, and plans for acute exacerbations. No changes today to the current treatment plan as the patient is stable, monitor for acute changes. Culture sputum - rx for levaquin due to the degree of symptoms and suspicion for pseudomonal infection. you have to take a probiotic - like melvin gutierrez [facility] - to prevent a really bad infection in your gut from the antibiotic - called Cdiff - you can actually ask bob for refrigerated probiotic - which is even better than culturetwine rocephin and kenalog injection given to patient today in clinic 07/08/2022 Appointment: [facility]el[facility] [address] [phone] (15 min) Moderate 07/08/2022 Patient Education: Patient Medication Summary Completed 07/08/2022 Patient Education: Obesity Completed 1 09/08/2021 Patient Education: Patient Medication Summary Completed 06/30/2022 Patient Education: Patient Medication Summary Completed 04/15/2022 Visit Plan: COPD EXACERBATION - COPD is a chronic problem for this patient, however, the pt is experiencing an acute exacerbation of the COPD. Pt is to receive appropriate treatment as an out patient, but the pt is aware that if symptoms worsen or do not improve, to call [facility] for instructions, or go to the EMERGENCY ROOM if the symptoms are beyond acute control with rescue medications. We have reviewed chronic treatment strategy, symptom control, and plans for acute exacerbations. No changes today to the current treatment plan as the patient is stable, monitor for acute changes. RX for augmentin and steroids sent to pharmacy. Elevated LFT's - repeat labs off of allopurinol. 01/23/2022 Patient Education: Patient Medication Summary Completed 01/23/2022 Patient Education: Patient Medication Summary Completed 12/29/2021 Care Plan: Hepatic due in January 2022 Pending 12/29 Visit Plan: Hypertension - well controll ed - continue with current medications, continue with no added salt diet. Pt has been encouraged to exercise daily. The pt has been advised to call the office if there are any acute concerns about change in blood pressure readings at home. Hypertriglyceridemia - monitor symptoms - adjust diet, check labs again in 1 year. COPD/Emphysema - continue with current management - he feels like his breathing has improved after treatment with antibiotics. Pt to call if he has any congestion, shortness of breath, or worsening cough. Elevated Liver enzymes - hold allopurinol, repeat liver enzymes in 1 month. 12/25/2021 Appointment: Tasha Nicolas WPtel: [address] [place], [place] [phone] (15 min) Moderate 12/25/2021 Patient Education: Patient Medication Summary Completed 12/25/2021 Patient Education: Hypertension Completed 12/25/2021 Visit Plan: COPD EXACERBATION - COPD is a chronic problem for this patient, however, the pt is experiencing an acute exacerbation of the COPD. Pt is to receive appropriate treatment as an out patient, but the pt is aware that if symptoms worsen or do not improve, to call [facility] for instructions, or go to the EMERGENCY ROOM if the symptoms are beyond acute control with rescue medications. We have reviewed chronic treatment strategy, symptom control, and plans for acute exacerbations. No changes today to the current treatment plan as the patient is stable, monitor for acute changes. 12/02/2021 Appointment: Mela Setrn WPtel: [phone] (30 min) Complex 12/02/2021 Patient Education: Patient Medication Summary Completed 12/02/2021 Visit Plan: Hypertension - well controll ed - continue with current medications, continue with no added salt diet. Pt has been encouraged to exercise daily. The pt has been advised to call the office if there are any acute concerns about change in blood pressure readings at home. Hypertriglyceridemia - monitor symptoms - adjust diet, check labs again in 1 year. Progressive COPD with pulmonary decline - increased pulmonary effort on exertion - discussed with pt - I would like for him to see a supervisor spinning - he is not interested in seeing a supervisor spinning at this time. 09/25/2021 Appointment: Tasha Nicolas WPtel: [phone] [place] 30 min appointments only in this slot 09/25/2021 Patient Education: Patient Medication Summary Completed 09/25/2021 Patient Education: Smoking and Tobacco Addiction Completed 09/25/2021 Patient Education: Hypertension Completed 09/25/2021 Appointment: Tasha Nicolas WPtel: [phone] (15 min) Moderate 09/17/2021 Appointment: Tasha Nicolas WPtel: [address] [place], [place] [phone] (15 min) Moderate 09/12/2021 Patient Education: Patient Medication Summary Completed 09/06/2021 Appointment: Tasha Nicolas WPtel: [phone] [place] (15 min) Moderate 08/29/2021 Patient Education: Patient Medication Summary Completed 08/29/2021 Patient Education: Hypertension Completed 08/29/2021 Patient Education: Cholesterol Management Completed 08/29/2021 Visit Plan: COPD EXACERBATION - COPD is a chronic problem for this patient, however, the pt is experiencing an acute exacerbation of the COPD. Pt is to receive appropriate treatment as an out patient, but the pt is aware that if symptoms worsen or do not improve, to call [facility] for instructions, or go to the EMERGENCY ROOM if the symptoms are beyond acute control with rescue medications. We have reviewed chronic treatment strategy, symptom control, and plans for acute exacerbations. No changes today to the current treatment plan as the patient is stable, monitor for acute changes. Hypertension - well controlled - continue with current medications, continue with no added salt diet. Pt has been encouraged to exercise daily. The pt has been advised to call the office if there are any acute concerns about change in blood pressure readings at home. 02/27/2021 Appointment: Tasha Nicolas WPtel[facility] [address] [phone] (15 min) Moderate 02/27/2021 Patient Education: Patient Medication Summary Completed 02/27/2021 Patient Education: Hypertension Completed 02/27/2021 Visit Plan: COPD EXACERBATION - COPD is a chronic problem for this patient, however, the pt is experiencing an acute exacerbation of the COPD. Pt is to receive appropriate treatment as an out patient, but the pt is aware that if symptoms worsen or do not improve, to call [facility] for instructions, or go to the EMERGENCY ROOM if the symptoms are beyond acute control with rescue medications. We have reviewed chronic treatment strategy, symptom control, and plans for acute exacerbations. No changes today to the current treatment plan as the patient is stable, monitor for acute changes. Hypertension - well controlled - continue with current medications, continue with no added salt diet. Pt has been encouraged to exercise daily. The pt has been advised to call the office if there are any acute concerns about change in blood pressure readings at home. 10/30/2020 App[facility]ment: [phone] (15 min) Moderate 10/30/2020 Patient Education: Patient Medication Summary Completed 10/30/2020 Patient Education: Hypertension Completed 10/30/2020 Visit Plan: COPD EXACERBATION - COPD is a chronic problem for this patient, however, the pt is experiencing an acute exacerbation of the COPD. Pt is to receive appropriate treatment as an out patient, but the pt is aware that if symptoms worsen or do not improve, to call [facility] for instructions, or go to the EMERGENCY ROOM if the symptoms are beyond acute control with rescue medications. We have reviewed chronic treatment strategy, symptom control, and plans for acute exacerbations. No changes today to the current treatment plan as the patient is stable, monitor for acute changes. Pneumonia - RX for antibiotic and steroid sent to pharmacy - continue with Inhalers rocephin kenalog Hypertension - well controlled - continue with current medications, continue with no added salt diet. Pt has been encouraged to exercise daily. The pt has been advised to call the office if there are any acute concerns about change in blood pressure readings at home. Hypertriglyceridemia - monitor symptoms - adjust diet, check labs again in 1 year. 05/31/2020 Appointment: [phone] (15 min) Moderate 05/31/2020 Patient Education: Patient Medication Summary Completed 05/31/2020 Visit Plan: COPD exacerbation -repeat pr ednisone taper -use oxygen and breathing treatment as directed -follow up next week in the office, sooner if needed. 08/12/2018 Appointment: Nurse Visit 08/12/2018 Patient Education: Patient Medication Summary Completed 08/12/2018 Visit Plan: COPD exacerbation -cough- sy mptoms have improved some -patient is noncompliant with oxygen -instructed him to use oxygen as directed -continue with antibiotics and steriods as directed -continue with breathing treatments- return if symptoms any worse or go to ER if after hours. Follow up , sooner if needed. 08/09/2018 Appointment: [phone] (15 min) Moderate 08/09/2018 Patient Education: Patient Medication Summary Completed 08/09/2018 Visit Plan: COPD EXACERBATION - COPD is a chronic problem for this patient, however, the pt is experiencing an acute exacerbation of the COPD. Pt is to receive appropriate treatment as an out patient, but the pt is aware that if symptoms worsen or do not improve, to call [facility] for instructions, or go to the EMERGENCY ROOM if the symptoms are beyond acute control with rescue medications. We have reviewed chronic treatment strategy, symptom control, and plans for acute exacerbations. No changes today to the current treatment plan as the patient is stable, monitor for acute changes. Hypoxemia-due to COPD -patient o xygen saturation 84% on room air at rest-will send orders for oxygen to [facility] 07/29/2018 Appointment: Mela Sterntel: [phone] (15 min) Moderate 07/29/2018 Patient Education: Patient Medication Summary Completed 07/29/2018 Patient Education: Hypertension Completed 07/29/2018 Appointment: Mela Stern WPtel: [phone] (15 min) Moderate 05/11/2018 Visit Plan: COPD EXACERBATION - COPD is a chronic problem for this patient, however, the pt is experiencing an acute exacerbation of the COPD. Pt is to receive appropriate treatment as an out patient, but the pt is aware that if symptoms worsen or do not improve, to call [facility] for instructions, or go to the EMERGENCY ROOM if the symptoms are beyond acute control with rescue medications. We have reviewed chronic treatment strategy, symptom control, and plans for acute exacerbations. No changes today to the current treatment plan as the patient is stable, monitor for acute changes. 11/23/2017 Appointment: Mela Sterntel: [phone] (15 min) Moderate 11/23/2017 Patient Education: Patient Medication Summary Completed 11/23/2017 Visit Plan: Hypertension - well controll ed - continue with current medications, continue with no added salt diet. Pt has been encouraged to exercise daily. The pt has been advised to call the office if there are any acute concerns about change in blood pressure readings at home. Tobacco use - chronic - discussed cutting back on number of cigarettes per day to eventual smoking cessation 11/10/2017 Appointment: Mela Sterntel: [phone] (15 min) Moderate 11/10/2017 Patient Education: Patient Medication Summary Completed 11/10/2017 Visit Plan: Hypertension - well controll ed - continue with current medications, continue with no added salt diet. Pt has been encouraged to exercise daily. The pt has been advised to call the office if there are any acute concerns about change in blood pressure readings at home. Dyspnea - chronic - sample of BREO. 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 08/04/2017 Appointment: Tasha Nicolas WPtel: [phone] (15 min) Moderate 08/04/2017 Patient Education: Patient Medication Summary Completed 08/04/2017 Visit Plan: Bronchitis - acute case of b ronchitis identified. Pt has been given antibiotics, breathing treatments as appropriate, and pt has been instructed to call if symptoms are not improved, or if symptoms acutely worsen. URI - Pt advised to increase fluids, vitamin C. Discussed natural and expected course of this diagnosis and need to alert me if symptoms do not follow expected course, or if any worse. RX sent to patient's pharmacy. 07/23/2017 Appointment: Cristy Hutson WPtel: [phone] (15 min) Moderate 07/23/2017 Patient Education: Patient Medication Summary Completed 07/23/2017 Appointment: Mela Stern WPtel: [address] [place], [place] [phone] (15 min) Moderate 05/12/2017 Patient Education: Patient Medication Summary Completed 05/12/2017 Patient Education: Obesity Completed 1 Visit Plan: Poison Sindy - pt is to use to pical treatments as directed. Pt is cleanse clothing in hot water with soap, and call if symptoms do not improve or if they worsen. 01/15/2017 Appointment: Mela Stern WPtel: [phone] (15 min) Moderate 01/15/2017 Patient Education: Patient Medication Summary Completed 01/15/2017 Patient Education: Obesity Completed 0 01/15/2017 Visit Plan: Hypertension - well controll ed - continue with current medications, continue with no added salt diet. Pt has been encouraged to exercise daily. The pt has been advised to call the office if there are any acute concerns about change in blood pressure readings at home. Hyperlipidemia-check labs Tobacco use-discussed cessation 11/11/2016 Appointment: Mela Stern WPtel: [phone] (30 min) Complex 11/11/2016 Patient Education: Patient Medication Summary Completed 11/11/2016 Patient Education: Obesity Completed 0 11/11/2016 Patient Education: Smoking and Tobacco Addiction Completed 11/11/2016 Patient Education: Hypertension Completed 11/11/2016 Care Plan: Comp Metabolic Pending Care Plan: Cbc With Differential Pending 11/11/2016 Care Plan: Tsh Pending 11/11/2016 Care Plan: Lipid Pending 11/11/2016 Care Plan: Total Psa Cancelled 017 Visit Plan: Hypertension - well controll ed - continue with current medications, continue with no added salt diet. Pt has been encouraged to exercise daily. The pt has been advised to call the office if there are any acute concerns about change in blood pressure readings at home. 05/13/2016 Appointment: Mela Stern WPtel: [phone] (30 min) Complex 05/13/2016 Patient Education: Patient Medication Summary Completed 05/13/2016 Appointment: Injection 03/18/2016 Patient Education: Patient Medication Summary Completed 03/18/2016 Visit Plan: Hypertension - well controll ed - continue with current medications, continue with no added salt diet. Pt has been encouraged to exercise daily. The pt has been advised to call the office if there are any acute concerns about change in blood pressure readings at home. 11/13/2015 Appointment: Mela Stern WPtel: [facility] [phone] (30 min) Complex 11/13/2015 Patient Education: Patient Medication Summary Completed 11/13/2015 Care Plan: Comp Metabolic Pending Care Plan: Cbc With Differential Pending 11/13/2015 Care Plan: Lipid Pending 11/13/2015 Care Plan: Tsh Pending 11/13/2015 Visit Plan: Obstructive sleep apnea-eloise ent to get CPAP from [facility] Afib-patient had cardioversion then ablation at -feeling great-patient to follow up with Dr Carty Cgpob-baiehbwi-qculespy lasix 40mg to daily-monitor symptoms for return and instructed patient to call immediately with any symptoms or concerns 08/14/2015 Appointment: (30 min) Complex 08/14/2015 Patient Education: Patient Medication Summary Completed 08/14/2015 Visit Plan: Afib - pt has been cardiover nannette - and then an ablation at - continue with xarelto. cardiomyopathy - due to his long standing afib - pt should have improvement in symptoms with a regular heart rate - he will have follow up ECHO in the next 6 months. Sleep apnea - pt needs to have his study completed and he will need cpap supplies - he will let us know who he would like to see. 06/11/2015 Patient Education: Patient Medication Summary Completed 06/11/2015 Appointment: (15 min) Moderate 5 Appointment: (15 min) Moderate 5 Visit Plan: Admission to Hospital - Pt h as diagnosis of acute illness necessitating hospital admission from the clinic. I have discussed the diagnosis and need for further work-up and acute hospital stay for the patient's health benefit. 05/30/2015 Patient Education: Patient Medication Summary Completed 05/30/2015 Visit Plan: Shortness of breath and bila teral lower extremity edema - Will order blood work. - CBC, CMP, TSH, Lipid Panel - diuretic orders pending renal function. 40 year history of smoking, dyspnea on exertion, bilateral wheezing and diminished breath sounds - will order a Chest X-ray PA and Lat. Lower extremity edema for 1 week, rapid heart rate - Pt has never seen cardiology - will get an EKG and refer to cardiology. 05/21/2015 Patient Education: Patient Medication Summary Completed 05/21/2015 Patient Education: Smoking and Tobacco Addiction Completed 05/21/2015 Instructions Comment Date . Hypertension - well controlled - jeovany nue with current medications, continue with no added salt diet. Pt has been encouraged to exercise daily. The pt has been advised to call the office if there are any acute concerns about change in blood pressure readings at home. Atrial Fibrillation - pt on chronic anticoagulation and is currently rate controlled. The pt is to have labs done as appropriate to monitor medication levels and is to report if they start to feel as if their heart rate is becoming uncontrolled. COPD - chronic problem for this patient - patient is going to schedule with Dr Roque for pulmonology - We have reviewed chronic treatment strategy, symptom control, and plans for acute exacerbations. No changes today to the current treatment plan as the patient is stable, monitor for acute changes. 09/29/2022 . COPD exacerbation - steroids sent to [facility] - as were antibiotics - continue with breathing treatments - we will try to get him in to see Diana Alvarenga instead of Dr. Garcia as was scheduled despite pt wanting to be seen in Diana's clinic. 09/09/2022 . COPD EXACERBATION - COPD is a chronic problem for this patient, however, the pt is experiencing an acute exacerbation of the COPD. Pt is to receive appropriate treatment as an out patient, but the pt is aware that if symptoms worsen or do not improve, to call [facility] for instructions, or go to the EMERGENCY ROOM if the symptoms are beyond acute control with rescue medications. We have reviewed chronic treatment strategy, symptom control, and plans for acute exacerbations. No changes today to the current treatment plan as the patient is stable, monitor for acute changes. Sample of trelegy sent with patient today, referral to Diana Timmons NP for pulmonology, Pt needs CT scan of chest - pt had been advised of need previously, did not call back to have the imaging scheduled. WE will get him scheduled [facility] with plans for the pulmonology referral and CT scan 08/07/2022 you have to take a probiotic - like cult urelle, Datical - to prevent a really bad infection in your gut from the antibiotic - called Cdiff - you can actually ask bob for refrigerated probiotic - which is even better than culturelle . COPD EXACERBATION - COPD is a chronic problem for this patient, however, the pt is experiencing an acute exacerbation of the COPD. Pt is to receive appropriate treatment as an out patient, but the pt is aware that if symptoms worsen or do not improve, to call [facility] for instructions, or go to the EMERGENCY ROOM if the symptoms are beyond acute control with rescue medications. We have reviewed chronic treatment strategy, symptom control, and plans for acute exacerbations. No changes today to the current treatment plan as the patient is stable, monitor for acute changes. Culture sputum - rx for levaquin due to the degree of symptoms and suspicion for pseudomonal infection. you have to take a probiotic - like culturelle, Datical - to prevent a really bad infection in your gut from the antibiotic - called Cdiff - you can actually ask bob for refrigerated probiotic - which is even better than matt aliceaephin and kenalog injection given to patient today in clinic 07/08/2022 . COPD EXACERBATION - COPD is a chronic problem for this patient, however, the pt is experiencing an acute exacerbation of the COPD. Pt is to receive appropriate treatment as an out patient, but the pt is aware that if symptoms worsen or do not improve, to call [facility] for instructions, or go to the EMERGENCY ROOM if the symptoms are beyond acute control with rescue medications. We have reviewed chronic treatment strategy, symptom control, and plans for acute exacerbations. No changes today to the current treatment plan as the patient is stable, monitor for acute changes. RX for augmentin and steroids sent to pharmacy. Elevated LFT's - repeat labs off of allopurinol. 01/23/2022 hold the allopurinol for the next month - we will check repeat liver enzymes in one month . Hypertension - well controlled - continue with current medications, continue with no added salt diet. Pt has been encouraged to exercise daily. The pt has been advised to call the office if there are any acute concerns about change in blood pressure readings at home. Hypertriglyceridemia - monitor symptoms - adjust diet, check labs again in 1 year. COPD/Emphysema - continue with current management - he feels like his breathing has improved after treatment with antibiotics. Pt to call if he has any congestion, shortness of breath, or worsening cough. Elevated Liver enzymes - hold allopurinol, repeat liver enzymes in 1 month. 12/25/2021 . COPD EXACERBATION - COPD is a chronic problem for this patient, however, the pt is experiencing an acute exacerbation of the COPD. Pt is to receive appropriate treatment as an out patient, but the pt is aware that if symptoms worsen or do not improve, to call [facility] for instructions, or go to the EMERGENCY ROOM if the symptoms are beyond acute control with rescue medications. We have reviewed chronic treatment strategy, symptom control, and plans for acute exacerbations. No changes today to the current treatment plan as the patient is stable, monitor for acute changes. 12/02/2021 . Hypertension - well controlled - continue with current medications, continue with no added salt diet. Pt has been encouraged to exercise daily. The pt has been advised to call the office if there are any acute concerns about change in blood pressure readings at home. Hypertriglyceridemia - monitor symptoms - adjust diet, check labs again in 1 year. Progressive COPD with pulmonary decline - increased pulmonary effort on exertion - discussed with pt - I would like for him to see a supervisor spinning - he is not interested in seeing a supervisor spinning at this time. 09/25/2021 lucrecia 180mg or zyrtec 10mg or claritin 10mg or xyzal 5mg - try one of these to see if they help . COPD EXACERBATION - COPD is a chronic problem for this patient, however, the pt is experiencing an acute exacerbation of the COPD. Pt is to receive appropriate treatment as an out patient, but the pt is aware that if symptoms worsen or do not improve, to call [facility] for instructions, or go to the EMERGENCY ROOM if the symptoms are beyond acute control with rescue medications. We have reviewed chronic treatment strategy, symptom control, and plans for acute exacerbations. No changes today to the current treatment plan as the patient is stable, monitor for acute changes. Hypertension - well controlled - continue with current medications, continue with no added salt diet. Pt has been encouraged to exercise daily. The pt has been advised to call the office if there are any acute concerns about change in blood pressure readings at home. 02/27/2021 lucrecia 180 one pill daily . COPD EXACERBATION - COPD is a chronic problem for this patient, however, the pt is experiencing an acute exacerbation of the COPD. Pt is to receive appropriate treatment as an out patient, but the pt is aware that if symptoms worsen or do not improve, to call [facility] for instructions, or go to the EMERGENCY ROOM if the symptoms are beyond acute control with rescue medications. We have reviewed chronic treatment strategy, symptom control, and plans for acute exacerbations. No changes today to the current treatment plan as the patient is stable, monitor for acute changes. Hypertension - well controlled - continue with current medications, continue with no added salt diet. Pt has been encouraged to exercise daily. The pt has been advised to call the office if there are any acute concerns about change in blood pressure readings at home. 10/30/2020 . COPD EXACERBATION - COPD is a chronic problem for this patient, however, the pt is experiencing an acute exacerbation of the COPD. Pt is to receive appropriate treatment as an out patient, but the pt is aware that if symptoms worsen or do not improve, to call [facility] for instructions, or go to the EMERGENCY ROOM if the symptoms are beyond acute control with rescue medications. We have reviewed chronic treatment strategy, symptom control, and plans for acute exacerbations. No changes today to the current treatment plan as the patient is stable, monitor for acute changes. Pneumonia - RX for antibiotic and steroid sent to pharmacy - continue with Inhalers rocephin kenalog Hypertension - well controlled - continue with current medications, continue with no added salt diet. Pt has been encouraged to exercise daily. The pt has been advised to call the office if there are any acute concerns about change in blood pressure readings at home. Hypertriglyceridemia - monitor symptoms - adjust diet, check labs again in 1 year. 05/31/2020 . COPD exacerbation -repeat prednisone t aper -use oxygen and breathing treatment as directed -follow up next week in the office, sooner if needed. 08/12/2018 . COPD exacerbation -cough- symptoms hav e improved some -patient is noncompliant with oxygen -instructed him to use oxygen as directed -continue with antibiotics and steriods as directed -continue with breathing treatments- return if symptoms any worse or go to ER if after hours. Follow up , sooner if needed. 08/09/2018 MUCINEX TWICE DAILY SYMBICORT 2 PUFFS TWICE DAILY DOXYCYCLINE TWICE DAILY PREDNISONE 2 TABS DAILY X 5 DAYS ROCEPHIN AND KENALOG INJECTIONS TODAY OXYGEN THROUGH [facility] USE ALBUTEROL NEBULIZER NEEDED . COPD EXACERBATION - COPD is a chronic problem for this patient, however, the pt is experiencing an acute exacerbation of the COPD. Pt is to receive appropriate treatment as an out patient, but the pt is aware that if symptoms worsen or do not improve, to call [facility] for instructions, or go to the EMERGENCY ROOM if the symptoms are beyond acute control with rescue medications. We have reviewed chronic treatment strategy, symptom control, and plans for acute exacerbations. No changes today to the current treatment plan as the patient is stable, monitor for acute changes. Hypoxemia-due to COPD -patient oxygen saturation 84% on room air at rest-will send orders for oxygen to [facility] 07/29/2018 rocephin and kenalog injection today continue albuterol nebulizer doxycycline twice daily breo 1 puff daily . COPD EXACERBATION - COPD is a chronic problem for this patient, however, the pt is experiencing an acute exacerbation of the COPD. Pt is to receive appropriate treatment as an out patient, but the pt is aware that if symptoms worsen or do not improve, to call [facility] for instructions, or go to the EMERGENCY ROOM if the symptoms are beyond acute control with rescue medications. We have reviewed chronic treatment strategy, symptom control, and plans for acute exacerbations. No changes today to the current treatment plan as the patient is stable, monitor for acute changes. 11/23/2017 . Hypertension - well controlled - jeovany nue with current medications, continue with no added salt diet. Pt has been encouraged to exercise daily. The pt has been advised to call the office if there are any acute concerns about change in blood pressure readings at home. Tobacco use - chronic - discussed cutting back on number of cigarettes per day to eventual smoking cessation 11/10/2017 . Hypertension - well controlled - jeovany nue with current medications, continue with no added salt diet. Pt has been encouraged to exercise daily. The pt has been advised to call the office if there are any acute concerns about change in blood pressure readings at home. Dyspnea - chronic - sample of BREO. 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 08/04/2017 . Bronchitis - acute case of bronchitis identified. Pt has been given antibiotics, breathing treatments as appropriate, and pt has been instructed to call if symptoms are not improved, or if symptoms acutely worsen. URI - Pt advised to increase fluids, vitamin C. Discussed natural and expected course of this diagnosis and need to alert me if symptoms do not follow expected course, or if any worse. RX sent to patient's pharmacy. 07/23/2017 Kenalog injection . Poison Sindy - pt is to use topical marcia tments as directed. Pt is cleanse clothing in hot water with soap, and call if symptoms do not improve or if they worsen. 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 Hypertension - well controlled - jeovany nue with current medications, continue with no added salt diet. Pt has been encouraged to exercise daily. The pt has been advised to call the office if there are any acute concerns about change in blood pressure readings at home. Hyperlipidemia-check labs Tobacco use-discussed cessation 11/11/2016 REPEAT CBC FLU SHOT . Hypertension - well controlled - jeovany nue with current medications, continue with no added salt diet. Pt has been encouraged to exercise daily. The pt has been advised to call the office if there are any acute concerns about change in blood pressure readings at home. 05/13/2016 . Hypertension - well controlled - jeovany nue with current medications, continue with no added salt diet. Pt has been encouraged to exercise daily. The pt has been advised to call the office if there are any acute concerns about change in blood pressure readings at home. 11/13/2015 Decrease furosemide 40mg and potassium 2 0mEq to DAILY IN THE MORNING CALL IF SWELLING, SHORTNESS OF BREATH OR NEW SYMPTOMS DEVELOP . Obstructive sleep apnea-patient to get CPAP from [facility]-patient had cardioversion then ablation at -feeling great-patient to follow up with Dr Carty [id number] lasix 40mg to daily-monitor symptoms for return and instructed patient to call immediately with any symptoms or concerns 08/14/2015 . Afib - pt has been cardioverted - and then an ablation at - continue with xarelto. cardiomyopathy - due to his long standing afib - pt should have improvement in symptoms with a regular heart rate - he will have follow up ECHO in the next 6 months. Sleep apnea - pt needs to have his study completed and he will need cpap supplies - he will let us know who he would like to see. 06/11/2015 . Admission to Hospital - Pt has diagnosis of acute illness necessitating hospital admission from the clinic. I have discussed the diagnosis and need for further work-up and acute hospital stay for the patient's health benefit. 05/30/2015 Will get blood work here in office, Go get EKG and CXR. Follow up in 10 days. . Shortness of breath and bilateral lower extremity edema - Will order blood work. - CBC, CMP, TSH, Lipid Panel - diuretic orders pending renal function. 40 year history of smoking, dyspnea on e xertion, bilateral wheezing and diminished breath sounds - will order a Chest X-ray PA and Lat. Lower extremity edema for 1 week, rapid heart rate - Pt has never seen cardiology - will get an EKG and refer to cardiology. 05/21/2015 Medical Equipment No Medical Equipment data Health Concerns Section Health Concerns data not found Goals Section Goals data not found Interventions Section Interventions data not found Health Status Evaluations/Outcomes Section Health Status Evaluations/Outcomes data not found Advance Directives No Advance Directive data
--- OUTSIDE RECORDS SUMMARY | 2022-12-02 16:07 | XMS REPORT | Encounter Summary ---
Demographics Preferred Language Unknown Marital Status Unknown Presybeterian Affiliation Unknown Race Unknown Ethnic Group Unknown Author Author [facility] Organization [facility] Address Unknown Phone Unavailable Care Team Providers Care Structural Fitter Name Role Phone PCP Unavailable Encounter Details Care Team Description Date Type Department Parish, Interface Unk Provider 11/06/2022 Ambow Education [facility] Virtual Revenu e Location Social History [...]
--- OUTSIDE RECORDS SUMMARY | 2022-12-02 16:07 | XMS REPORT | CCD ---
Author Author Edward Nicolas Organization Tasha Nicolas MD, [facility] Address [address] [place] [address] Phone Care Team Providers Care Director Of Instrumental Music Name Role Phone Tasha Nicolas PP Unavailable CCM Unavailable Summary Purpose Interface Exchange Insurance Providers Payer name Policy type / Coverage type Covered republican ID Effective Begin Date Effective End Date WPS Medicare Part B Medicare Part B [id number] Unkno wn [employer] Medicare Part B [id number] Unk nown Family history Brother Diagnosis Age At Onset Hypertension Unknown Hyperlipidemia Unknown Father Diagnosis Age At Onset Diabetes Unknown Mother Diagnosis Age At Onset liver failure Unknown Social History Social History Element Codes Description Effective Dates Marital status Unknown Steph 11/23/[address]: 6593158 Former smoker quit June 2015 06/11/[address]: 455241 Currently drinks alcohol 05/21 Number of years [...] (0.083 %) solution for n ebulization RxNorm: 914150 INHALE ONE VIAL VIA NEBULIZER FOUR TIMES DAILY NEEDED FOR DYSPNEA 10/10/2022 02/06/2023 Active Eliquis 5 mg tablet RxNorm: 3538116 1 Tablet(s) Oral two times a da y 09/29/2022 No Stop Date Active digoxin 250 mcg (0.25 mg) tablet RxNorm: 047733 1 Tablet(s) Ora l every day 09/29/2022 No Stop Date Active diltiazem ER 240 mg tablet,extended release 24 hr RxNorm: 83 0879 1 Tablet(s) Oral every day 09/29/2022 No Stop Date Active amiodarone 200 mg tablet RxNorm: 480694 2 Tablet(s) Oral two ti mes a day 09/29/2022 10/28/2022 Active Ventolin HFA 90 mcg/actuation aerosol inhaler RxNorm: 486174 INHALE TWO PUFFS BY MOUTH TWICE DAILY 09/23/2022 04/20/2023 Active potassium chloride ER 20 mEq tablet,extended release(p art/cryst) RxNorm: 3864853 Take 1 Tablet(s) Oral every day 09/23/2022 09/28/2022 Inactive prednisone 10 mg tablets in a dose pack RxNorm: 720049 Take 1 Tablet(s) Oral as directed 6 [...] QS Zithromax Z-Branden 250 mg tablet RxNorm: 977661 Take 1 Tab let(s) Oral as directed 2 tabs on day #1, then 1 tab daily x 10 09/09/2022 09/28/2022 Inactive back to back zpacks furosemide 40 mg tablet RxNorm: 831600 Take 1 Tablet(s) Oral ev boni day 08/25/2022 09/28/2022 Inactive triamcinolone acetonide 40 mg/mL suspension for injection Rx Norm: 4416553 Take Milliliter(s) Injection 07/08/2022 07/08/2022 Inactive ceftriaxone 500 mg solution for injection RxNorm: 4290243 Take I njection 07/08/2022 07/08/2022 Inactive levofloxacin 500 mg tablet RxNorm: 561633 Take 1 Tablet(s) Oral every day 07/08/2022 07/14/2022 Inactive amoxicillin 875 mg-potassium clavulanate 125 mg tablet RxNor m: 125987 Take 1 Tablet(s) Oral two times a day 06/30/2022 07/13/2022 Inactive prednisone 20 mg tablet RxNorm: 479380 Take 3 Tablet(s) Oral ev boni day 06/30/2022 07/09/2022 Inactive albuterol sulfate 2.5 mg/3 mL (0.083 %) solution for n ebulization RxNorm: 702097 INHALE ONE VIAL VIA NEBULIZER FOUR TIMES DAILY NEEDED FOR DYSPNEA 06/25/2022 06/25/2022 Inactive lisinopril 2.5 mg tablet RxNorm: 646805 TAKE 1 TABLET B Y MOUTH DAILY Take 1 Tablet(s) Sublingual every day 06/20/2022 09/28/2022 Inactive allopurinol 100 mg tablet RxNorm: 207467 TAKE 1 TABLET BY MOUTH TWICE DAILY AFTER MEALS 06/11/2022 11/07/2022 Active albuterol sulfate 2.5 mg/3 mL (0.083 %) solution for n ebulization RxNorm: 080606 INHALE ONE VIAL VIA NEBULIZER FOUR TIMES DAILY NEEDED FOR DYSPNEA 04/28/2022 04/28/2022 Inactive potassium chloride ER 20 mEq tablet,extended release(p art/cryst) RxNorm: 8782272 Take 1 Tablet(s) Oral every day 04/28/2022 04/28/2022 Inactive prednisone 20 mg tablet RxNorm: 310251 Take 3 Tablet(s) Oral ev boni day 04/15/2022 04/24/2022 Inactive amoxicillin 875 mg-potassium clavulanate 125 mg tablet RxNor m: 596496 Take 1 Tablet(s) Oral two times a day 04/15/2022 04/28/2022 Inactive Ventolin HFA 90 mcg/actuation aerosol inhaler RxNorm: 760695 INHALE TWO PUFFS BY MOUTH TWICE DAILY 03/14/2022 03/14/2022 Inactive This prescript ion was filled on 03/14/2022. Any refills authorized will be placed on file. albuterol sulfate 2.5 mg/3 mL (0.083 %) solution for n ebulization RxNorm: 404790 INHALE ONE VIAL VIA NEBULIZER FOUR TIMES DAILY NEEDED FOR DYSPNEA 03/03/2022 03/03/2022 Inactive metoprolol tartrate 25 mg tablet RxNorm: 416835 TAKE 1 TABLET BY MOUTH TWICE DAILY 02/25/2022 09/28/2022 Inactive amoxicillin 875 mg-potassium clavulanate 125 mg tablet RxNor m: 334013 Take 1 Tablet(s) Oral two times a day 01/23/2022 02/05/2022 Inactive prednisone 20 mg tablet RxNorm: 545111 Take 3 Tablet(s) Oral ev boni day 01/23/2022 02/01/2022 Inactive furosemide 40 mg tablet RxNorm: 874211 TAKE 1 TABLET BY MOUTH DAILY 12/27/2021 12/27/2021 Inactive potassium chloride ER 20 mEq tablet,extended release(p art/cryst) RxNorm: 5622033 TAKE 1 TABLET BY MOUTH DAILY 12/27/2021 12/27/2021 Inactive albuterol sulfate 2.5 mg/3 mL (0.083 %) solution for n ebulization RxNorm: 110545 INHALE ONE VIAL VIA NEBULIZER FOUR TIMES DAILY NEEDED FOR DYSPNEA 12/13/2021 12/13/2021 Inactive doxycycline hyclate 100 mg tablet RxNorm: 2389552 Take 1 Tablet(s) Oral two times a day 12/02/2021 12/11/2021 Inactive prednisone 10 mg tablets in a dose pack RxNorm: 359583 Take 1 Tablet(s) Oral every night at bedtime 12/02/2021 12/07/2021 Inactive lisinopril 2.5 mg tablet RxNorm: 458458 TAKE 1 TABLET BY MOUTH RUDDY Y 11/27/2021 11/27/2021 Inactive albuterol sulfate 2.5 mg/3 mL (0.083 %) solution for n ebulization RxNorm: 118132 INHALE THE CONTENTS OF 1 VIAL PER NEBULI ZER FOUR TIMES DAILY NEEDED FOR DYSPNEA 09/23/2021 09/23/2021 Inactive prednisone 20 mg tablet RxNorm: 041140 Take 1 Tablet(s) Oral tw o times a day 09/06/2021 09/10/2021 Inactive Augmentin 875 mg-125 mg tablet RxNorm: 790697 Take 1 Ta blet(s) Oral two times a day 09/06/2021 09/12/2021 Inactive metoprolol tartrate 25 mg tablet RxNorm: 967220 TAKE 1 TABLET BY MOUTH TWICE DAILY 08/29/2021 08/29/2021 Inactive furosemide 40 mg tablet RxNorm: 170782 TAKE 1 TABLET BY MOUTH DAILY 08/29/2021 08/29/2021 Inactive potassium chloride ER 20 mEq tablet,extended release(p art/cryst) RxNorm: 4769313 TAKE 1 TABLET BY MOUTH DAILY 06/25/2021 06/25/2021 Inactive albuterol sulfate 2.5 mg/3 mL (0.083 %) solution for n ebulization RxNorm: 332989 INHALE THE CONTENTS OF 1 VIAL PER NEBULI ZER FOUR TIMES DAILY NEEDED FOR DYSPNEA 06/11/2021 06/11/2021 Inactive lisinopril 2.5 mg tablet RxNorm: 255127 TAKE 1 TABLET BY MOUTH RUDDY Y 05/30/2021 05/30/2021 Inactive albuterol sulfate HFA 90 mcg/actuation aerosol inhaler RxNor m: 5974885 INHALE TWO PUFFS BY MOUTH TWICE DAILY 05/15/2021 05/15/2021 Inactive metoprolol tartrate 25 mg tablet RxNorm: 532336 TAKE 1 TABLET BY MOUTH TWICE DAILY 05/09/2021 05/09/2021 Inactive albuterol sulfate HFA 90 mcg/actuation aerosol inhaler RxNor m: 8997975 INHALE TWO PUFFS BY MOUTH TWICE DAILY 03/08/2021 03/08/2021 Inactive furosemide 40 mg tablet RxNorm: 904784 TAKE 1 TABLET BY MOUTH DAILY 03/04/2021 03/04/2021 Inactive prednisone 20 mg tablet RxNorm: 781837 Take 2 Tablet(s) Oral every day as needed dyspnea 02/27/2021 03/03/2021 Inactive please keep on f ile for pt to refill as needed albuterol sulfate 2.5 mg/3 mL (0.083 %) solution for n ebulization RxNorm: 765311 INHALE THE CONTENTS OF 1 VIAL PER NEBULI ZER FOUR TIMES DAILY NEEDED FOR DYSPNEA 01/21/2021 01/21/2021 Inactive allopurinol 100 mg tablet RxNorm: 658617 TAKE 1 TABLET BY MOUTH TWICE DAILY AFTER MEALS 12/28/2020 12/28/2020 Inactive potassium chloride ER 20 mEq tablet,extended release(p art/cryst) RxNorm: 3606763 TAKE 1 TABLET BY MOUTH DAILY 12/28/2020 12/28/2020 Inactive ProAir HFA 90 mcg/actuation aerosol inhaler RxNorm: 787348 INHALE TWO PUFFS BY MOUTH TWICE DAILY 11/30/2020 11/30/2020 Inactive lisinopril 2.5 mg tablet RxNorm: 817644 TAKE 1 TABLET BY MOUTH RUDDY Y 11/30/2020 11/30/2020 Inactive prednisone 20 mg tablet RxNorm: 436954 2 Tablet(s) Oral every day 0 10/30/2020 11/03/2020 Inactive Zithromax Z-Branden 250 mg tablet RxNorm: 004656 1 Tablet(s) Oral a s directed 10/30/2020 11/03/2020 Inactive zpack as directed cefdinir 300 mg capsule RxNorm: 795583 1 Capsule(s) Oral two ti mes a day 10/30/2020 11/05/2020 Inactive make sure he gets a probiotic to take twice daily while on the antibiotic albuterol sulfate 2.5 mg/3 mL (0.083 %) solution for n ebulization RxNorm: 239044 INHALE THE CONTENTS OF 1 VIAL PER NEBULI ZER FOUR TIMES DAILY NEEDED FOR DYSPNEA 10/30/2020 10/30/2020 Inactive furosemide 40 mg tablet RxNorm: 020862 TAKE 1 TABLET BY MOUTH DAILY 09/06/2020 09/06/2020 Inactive ProAir HFA 90 mcg/actuation aerosol inhaler RxNorm: 870562 INHALE 2 PUFFS TWICE DAILY 09/06/2020 11/29/2020 Inactive lisinopril 2.5 mg tablet RxNorm: 644365 TAKE 1 TABLET BY MOUTH ONCE DAILY 09/06/2020 11/29/2020 Inactive albuterol sulfate 2.5 mg/3 mL (0.083 %) solution for n ebulization RxNorm: 910994 INHALE THE CONTENTS OF 1 VIAL PER NEBULI ZER FOUR TIMES DAILY NEEDED FOR DYSPNEA 07/24/2020 08/22/2020 Inactive potassium chloride ER 20 mEq tablet,extended release(p art/cryst) RxNorm: 4113292 TAKE 1 Tablet BY MOUTH ONCE DAILY 06/26/2020 12/22/2020 Inactiv e prednisone 20 mg tablet RxNorm: 506183 2 Tablet(s) Oral every day 1 06/05/2020 Inactive cefdinir 300 mg capsule RxNorm: 325445 1 Capsule(s) Oral two ti mes a day 05/31/2020 06/07/2020 Inactive make sure he gets a probiotic to take twice daily while on the antibiotic Kenalog 40 mg/mL suspension for injection RxNorm: 9688656 1.5 Milliliter(s) Injection 05/31/2020 05/31/2020 Inactive ceftriaxone 1 gram solution for injection RxNorm: 4694742 500 Milligram(s) Injection 05/31/2020 05/31/2020 Inactive potassium chloride ER 20 mEq tablet,extended release(p art/cryst) RxNorm: 3862129 TAKE 1 TABLET BY MOUTH ONCE DAILY 05/28/2020 06/25/2020 Inactiv e potassium chloride ER 20 mEq tablet,extended release(p art/cryst) RxNorm: 5744778 TAKE 1 TABLET BY MOUTH ONCE DAILY 04/27/2020 05/26/2020 Inactiv e lisinopril 2.5 mg tablet RxNorm: 942738 TAKE 1 TABLET BY MOUTH ONCE DAILY 04/27/2020 08/24/2020 Inactive ProAir HFA 90 mcg/actuation aerosol inhaler RxNorm: 201936 INHALE 2 PUFFS TWICE DAILY 04/27/2020 08/24/2020 Inactive furosemide 40 mg tablet RxNorm: 386503 TAKE 1 TABLET BY MOUTH DAILY 04/27/2020 08/24/2020 Inactive metoprolol tartrate 25 mg tablet RxNorm: 022293 TAKE 1 TABLET BY MOUTH TWICE DAILY 04/27/2020 04/27/2020 Inactive albuterol sulfate 2.5 mg/3 mL (0.083 %) solution for n ebulization RxNorm: 847201 INHALE THE CONTENTS OF 1 VIAL PER NEBULI ZER FOUR TIMES DAILY NEEDED FOR DYSPNEA 03/30/2020 04/28/2020 Inactive lisinopril 2.5 mg tablet RxNorm: 747654 TAKE 1 TABLET BY MOUTH ONCE DAILY 02/27/2020 03/27/2020 Inactive potassium chloride ER 20 mEq tablet,extended release(p art/cryst) RxNorm: 6127056 TAKE 1 TABLET BY MOUTH ONCE DAILY 02/27/2020 03/27/2020 Inactiv e furosemide 40 mg tablet RxNorm: 696982 TAKE 1 TABLET BY MOUTH DAILY 02/27/2020 03/27/2020 Inactive ProAir HFA 90 mcg/actuation aerosol inhaler RxNorm: 336808 INHALE 2 PUFFS TWICE DAILY 01/27/2020 04/25/2020 Inactive potassium chloride ER 20 mEq tablet,extended release(p art/cryst) RxNorm: 0290699 TAKE 1 TABLET BY MOUTH ONCE DAILY 01/27/2020 02/25/2020 Inactiv e lisinopril 2.5 mg tablet RxNorm: 958291 TAKE 1 TABLET BY MOUTH ONCE DAILY 01/27/2020 02/25/2020 Inactive metoprolol tartrate 25 mg tablet RxNorm: 417922 TAKE 1 TABLET BY MOUTH TWICE DAILY 01/27/2020 02/25/2020 Inactive furosemide 40 mg tablet RxNorm: 744474 TAKE 1 TABLET BY MOUTH DAILY 01/27/2020 02/25/2020 Inactive metoprolol tartrate 25 mg tablet RxNorm: 868963 TAKE 1 TABLET BY MOUTH TWICE DAILY 12/29/2019 01/26/2020 Inactive allopurinol 100 mg tablet RxNorm: 735860 TAKE 1 TABLET BY MOUTH TWICE DAILY AFTER MEALS 12/29/2019 06/25/2020 Inactive lisinopril 2.5 mg tablet RxNorm: 943590 TAKE 1 TABLET BY MOUTH ONCE DAILY 12/29/2019 01/26/2020 Inactive albuterol sulfate 2.5 mg/3 mL (0.083 %) solution for n ebulization RxNorm: 685785 INHALE THE CONTENTS OF 1 VIAL PER NEBULI ZER FOUR TIMES DAILY NEEDED FOR DYSPNEA 12/05/2019 12/19/2019 Inactive albuterol sulfate 2.5 mg/3 mL (0.083 %) solution for n ebulization RxNorm: 662950 INHALE THE CONTENTS OF 1 VIAL PER NEBULI ZER FOUR TIMES DAILY NEEDED FOR DYSPNEA 10/10/2019 11/08/2019 Inactive potassium chloride ER 20 mEq tablet,extended release(p art/cryst) RxNorm: 1799019 1TD 09/01/2019 01/26/2020 Inactive lisinopril 2.5 mg tablet RxNorm: 093174 TAKE 1 TABLET BY MOUTH ONCE DAILY 07/04/2019 12/28/2019 Inactive Generic For:ZESTRIL 2.5 MG TABLET 07/04/2019 9:42:31 AM ProAir HFA 90 mcg/actuation aerosol inhaler RxNorm: 169229 INHALE 2 PUFFS TWICE DAILY 07/04/2019 10/31/2019 Inactive Generic For:VENT JERESY HFA (200) 07/04/2019 9:42:10 AM furosemide 40 mg tablet RxNorm: 327248 TAKE 1 TABLET BY MOUTH DAILY 06/02/2019 01/26/2020 Inactive Generic For:LASIX 40MG 05/05 9:32:25 AM doxycycline hyclate 100 mg capsule RxNorm: 0129099 1 Cap jodi(s) Oral two times a day 05/09/2019 05/16/2019 Inactive DC zpack Zithromax Z-Branden 250 mg tablet RxNorm: 479077 1 Tablet(s) Oral a s directed 05/09/2019 05/08/2019 Inactive zpack as directed doxycycline hyclate 100 mg capsule RxNorm: 6663289 1 Cap jodi(s) Oral two times a day 05/09/2019 05/08/2019 Inactive Zithromax Z-Branden 250 mg tablet RxNorm: 451708 1 Tablet(s) Oral a s directed 05/09/2019 05/09/2019 Inactive zpack as directed prednisone 20 mg tablet RxNorm: 821006 1 Tablet(s) Oral two jay es a day 05/09/2019 05/14/2019 Inactive albuterol sulfate 2.5 mg/3 mL (0.083 %) solution for n ebulization RxNorm: 214363 Milliliter(s) 3 Milliliter(s) INH QID as needed dyspnea 04/07/20 19 10/09/2019 Inactive DX: J44.9 potassium chloride ER 20 mEq tablet,extended release(p art/cryst) RxNorm: 5996251 TAKE 1 TABLET BY MOUTH ONCE DAILY 03/03/2019 08/29/2019 Inactiv e Generic For:K- DUR 20 MEQ TABLET SA 03/02/2019 11:28:36 AM allopurinol 100 mg tablet RxNorm: 103692 TAKE 1 TABLET BY MOUTH TWICE DAILY AFTER MEALS 02/01/2019 08/29/2019 Inactive 02/01/2019 11:24 :00 AM metoprolol tartrate 25 mg tablet RxNorm: 918344 TAKE 1 TABLET BY MOUTH TWICE DAILY 02/01/2019 08/29/2019 Inactive 02/01/2019 11:23 :07 AM lisinopril 2.5 mg tablet RxNorm: 596854 TAKE 1 TABLET BY MOUTH ONCE DAILY 01/03/2019 07/01/2019 Inactive Generic For:ZESTRIL 2.5 MG TABLET 01/03/2019 11:16:41 AM ProAir HFA 90 mcg/actuation aerosol inhaler RxNorm: 900381 INHALE 2 PUFFS TWICE DAILY 12/03/2018 05/01/2019 Inactive Generic For:VENT JERSEY HFA (200) 12/03/2018 3:25:56 PM furosemide 40 mg tablet RxNorm: 428244 TAKE 1 TABLET BY MOUTH DAILY 10/04/2018 05/31/2019 Inactive Generic For:LASIX 40MG 11/2018 2:30:30 PM albuterol sulfate 2.5 mg/3 mL (0.083 %) solution for n ebulization RxNorm: 836433 Milliliter(s) 3 Milliliter(s) INH QID as needed dyspnea 09/29/19 19 04/06/2019 Inactive DX: J44.9 albuterol sulfate 2.5 mg/3 mL (0.083 %) solution for n ebulization RxNorm: 555762 Milliliter(s) 3 Milliliter(s) INH QID as needed dyspnea 09/28/19 19 09/28/2018 Inactive DX: J44.9 potassium chloride ER 20 mEq tablet,extended release(p art/cryst) RxNorm: 7407903 TAKE 1 TABLET BY MOUTH ONCE DAILY 09/06/2018 03/02/2019 Inactiv e Generic For:K- DUR 20 MEQ TABLET SA 09/06/2018 10:05:54 AM prednisone 10 mg tablet RxNorm: 319308 Tablet(s) PO UD 08/12/201801/2019 Inactive 6,5,4,3,2,1 Levaquin 500 mg tablet RxNorm: 055164 1 Tablet(s) PO daily 08/06/1908/12/2018 Inactive Levaquin 500 mg tablet RxNorm: 019748 1 Tablet(s) PO daily 08/06/1908/05/2018 Inactive prednisone 10 mg tablet RxNorm: 135909 Tablet(s) PO UD 08/06/201804/2019 Inactive 6,5,4,3,2,1 prednisone 20 mg tablet RxNorm: 060121 2 Tablet(s) PO daily 018 08/02/2018 Inactive doxycycline hyclate 100 mg tablet RxNorm: 8578469 1 Tablet(s) PO BI D 07/29/2018 08/07/2018 Inactive Kenalog 40 mg/mL suspension for injection RxNorm: 8914796 1.5 Mi lliliter(s) Inj 07/29/2018 07/29/2018 Inactive ceftriaxone 1 gram solution for injection RxNorm: 3839196 Inj 07/29/2018 07/29/2018 Inactive Symbicort 160 mcg-4.5 mcg/actuation HFA aerosol inhaler RxNo rm: 7767632 2 Puff(s) INH BID 07/29/2018 08/27/2018 Inactive lisinopril 2.5 mg tablet RxNorm: 025799 TAKE 1 TABLET BY MOUTH ONCE DAILY 07/07/2018 01/02/2019 Inactive Generic For:ZESTRIL 2.5 MG TABLET 07/07/2018 9:08:01 AM ProAir HFA 90 mcg/actuation aerosol inhaler RxNorm: 920542 INHALE 2 PUFFS TWICE DAILY 05/19/2018 10/15/2018 Inactive 05/19/2018 9:02: 12 AM allopurinol 100 mg tablet RxNorm: 659032 TAKE 1 TABLET BY MOUTH TWICE DAILY AFTER MEALS 05/19/2018 12/14/2018 Inactive 05/19/2018 9:02: 09 AM albuterol sulfate 2.5 mg/3 mL (0.083 %) solution for n ebulization RxNorm: 107549 Milliliter(s) 3 Milliliter(s) INH QID as needed dyspnea 04/15/20 18 09/27/2018 Inactive potassium chloride ER 20 mEq tablet,extended release(p art/cryst) RxNorm: 2533443 TAKE 1 TABLET BY MOUTH ONCE DAILY 03/09/2018 09/04/2018 Inactiv e Generic For:K- DUR 20 MEQ TABLET SA 03/09/2018 9:10:29 AM furosemide 40 mg tablet RxNorm: 132809 TAKE 1 TABLET BY MOUTH DAILY 02/08/2018 10/03/2018 Inactive Generic For:LASIX 40MG 04/2018 9:01:52 AM lisinopril 2.5 mg tablet RxNorm: 820209 TAKE 1 TABLET BY MOUTH ONCE DAILY 01/08/2018 07/06/2018 Inactive Generic For:ZESTRIL 2.5 MG TABLET 01/08/2018 8:56:05 AM ceftriaxone 500 mg solution for injection RxNorm: 3445286 Inj 11/23/2017 11/23/2017 Inactive doxycycline hyclate 100 mg tablet RxNorm: 848347 1 Tablet(s) PO BID 11/23/2017 11/29/2017 Inactive Kenalog 40 mg/mL suspension for injection RxNorm: 8562457 Millil iter(s) Inj 11/23/2017 11/23/2017 Inactive metoprolol tartrate 25 mg tablet RxNorm: 486397 TAKE 1 TABLET BY MOUTH TWICE DAILY 11/09/2017 06/06/2018 Inactive 11/09/2017 9:08: 25 AM potassium chloride ER 20 mEq tablet,extended release(p art/cryst) RxNorm: 7422775 TAKE 1 TABLET BY MOUTH ONCE DAILY 09/10/2017 03/08/2018 Inactiv e Generic For:K- DUR 20 MEQ TABLET SA 09/10/2017 9:04:11 AM albuterol sulfate 2.5 mg/3 mL (0.083 %) solution for n ebulization RxNorm: 155922 Milliliter(s) 3 Milliliter(s) INH QID as needed dyspnea 07/24/20 17 04/14/2018 Inactive prednisone 10 mg tablet RxNorm: 732778 Tablet(s) PO UD 07/24/201708/2017 Inactive 6,5,4,3,2,1 Kenalog 40 mg/mL suspension for injection RxNorm: 7322934 1 Mill iliter(s) Inj 07/23/2017 07/23/2017 Inactive ProAir HFA 90 mcg/actuation aerosol inhaler RxNorm: 934801 INHALE 2 PUFFS TWICE DAILY 07/13/2017 12/09/2017 Inactive 07/13/2017 9:03: 32 AM lisinopril 2.5 mg tablet RxNorm: 391424 TAKE 1 TABLET BY MOUTH ONCE DAILY 07/13/2017 01/07/2018 Inactive Generic For:ZESTRIL 2.5 MG TABLET 07/13/2017 9:03:29 AM ProAir HFA 90 mcg/actuation aerosol inhaler RxNorm: 144487 2 INH BI D 06/15/2017 07/03/2019 Inactive ProAir HFA 90 mcg/actuation aerosol inhaler RxNorm: 129714 2 INH BI D 06/15/2017 06/14/2017 Inactive ProAir HFA 90 mcg/actuation aerosol inhaler RxNorm: 625113 2 INH BI D 06/15/2017 07/12/2017 Inactive furosemide 40 mg tablet RxNorm: 867128 TAKE 1 TABLET BY MOUTH DAILY 06/15/2017 02/07/2018 Inactive Generic For:LASIX 40MG 06/03 9:04:05 AM albuterol sulfate 2.5 mg/3 mL (0.083 %) solution for n ebulization RxNorm: 393815 3 Milliliter(s) INH QID as needed dyspnea 05/29/2017 07/23/2017 Inactive allopurinol 100 mg tablet RxNorm: 156879 TAKE 1 TABLET BY MOUTH TWICE DAILY AFTER MEALS 05/15/2017 12/10/2017 Inactive Generic For:ZYLO PRIM 100 MG TABLET 05/15/2017 11:34:11 AM potassium chloride ER 20 mEq tablet,extended release(p art/cryst) RxNorm: 8534247 TAKE 1 TABLET BY MOUTH ONCE DAILY 04/27/2017 08/24/2017 Inactiv e Generic For:K- DUR 20 MEQ TABLET SA 04/25/2017 9:11:14 AM ProAir HFA 90 mcg/actuation aerosol inhaler RxNorm: 313125 2 INH BI D 01/27/2017 05/26/2017 Inactive ProAir HFA 90 mcg/actuation aerosol inhaler RxNorm: 743556 2 INH BI D 01/27/2017 01/26/2017 Inactive triamcinolone acetonide 40 mg/mL suspension for injection Rx Norm: 7267502 1 Milliliter(s) Inj 01/15/2017 01/15/2017 Inactive potassium chloride ER 20 mEq tablet,extended release(p art/cryst) RxNorm: 0344182 TAKE 1 TABLET BY MOUTH ONCE DAILY 12/26/2016 04/24/2017 Inactiv e Generic For:K- DUR 20 MEQ TABLET 12/26/2016 9:09:04 AM lisinopril 2.5 mg tablet RxNorm: 084910 TAKE 1 TABLET BY MOUTH ONCE DAILY 12/26/2016 06/23/2017 Inactive Generic For:ZESTRIL 2.5 MG TABLET 12/26/2016 9:09:00 AM furosemide 40 mg tablet RxNorm: 228117 1 Tablet(s) PO daily 017 05/25/2017 Inactive albuterol sulfate 2.5 mg/3 mL (0.083 %) solution for n ebulization RxNorm: 896472 3 Milliliter(s) INH QID as needed dyspnea 11/11/2016 05/28/2017 Inactive metoprolol tartrate 25 mg tablet RxNorm: 117397 1 Tablet(s) PO BID 10/27/2016 05/24/2017 Inactive potassium chloride ER 20 mEq tablet,extended release RxNorm: 104457 1 Tablet(s) PO daily 08/28/2016 05/30/2020 Inactive lisinopril 5 mg tablet RxNorm: 771449 1/2 Tablet(s) PO daily 201505/11/2017 Inactive albuterol sulfate 2.5 mg/3 mL (0.083 %) solution for n ebulization RxNorm: 413699 1 Milliliter(s) INH QID as needed dyspnea 07/02/2016 11/10/2016 Inactive albuterol sulfate 2.5 mg/3 mL (0.083 %) solution for n ebulization RxNorm: 844050 1 Milliliter(s) INH QID as needed dyspnea 06/18/2016 07/01/2016 Inactive furosemide 40 mg tablet RxNorm: 688390 1 Tablet(s) PO daily 016 11/26/2016 Inactive allopurinol 100 mg tablet RxNorm: 746211 Tablet(s) daily 100 MG PO BIDPC 05/13/2016 12/08/2016 Inactive furosemide 40 mg tablet RxNorm: 469602 1 Tablet(s) PO daily 016 06/03/2016 Inactive potassium chloride ER 20 mEq tablet,extended release RxNorm: 679343 1 Tablet(s) PO daily 05/05/2016 08/27/2016 Inactive Kenalog 40 mg/mL suspension for injection RxNorm: 3074702 Millil iter(s) Inj 03/18/2016 03/18/2016 Inactive albuterol sulfate 2.5 mg/3 mL (0.083 %) solution for n ebulization RxNorm: 768349 1 Milliliter(s) INH QID as needed dyspnea 03/10/2016 06/17/2016 Inactive allopurinol 100 mg tablet RxNorm: 083759 100 MG PO BIDPC 01/28/2016 1 Inactive lisinopril 5 mg tablet RxNorm: 677542 1/2 Tablet(s) PO daily 201507/03/2016 Inactive albuterol sulfate 2.5 mg/3 mL (0.083 %) solution for n ebulization RxNorm: 044134 1 Milliliter(s) INH QID as needed dyspnea 12/26/2015 03/09/2016 Inactive amoxicillin 500 mg capsule RxNorm: 035263 1 Capsule(s) PO TID 12/2512/25/2015 Inactive amoxicillin 500 mg capsule RxNorm: 371021 1 Capsule(s) PO TID 12/2501/01/2016 Inactive metoprolol tartrate 25 mg tablet RxNorm: 427100 1 Tablet(s) PO BID 12/24/2015 07/20/2016 Inactive albuterol sulfate 2.5 mg/3 mL (0.083 %) solution for n ebulization RxNorm: 110349 1 Milliliter(s) INH QID as needed dyspnea 09/19/2015 12/25/2015 Inactive ipratropium-albuterol 0.5 mg-3 mg(2.5 mg base)/3 mL ne bulization soln RxNorm: 7032185 1 INH Q4H as needed 09/10/2015 03/07/2016 Inactive metoprolol tartrate 25 mg tablet RxNorm: 228800 1 Tablet(s) PO BID 08/14/2015 2015 Inactive furosemide 20 mg tablet RxNorm: 385464 1 Tablet(s) PO BID 08/14/2015 08/13/2015 Inactive furosemide 20 mg tablet RxNorm: 945079 1 Tablet(s) PO daily 08/13/2015 Inactive potassium chloride 20 meq RxNorm: 370083 Tablet(s) PO BID 08/14/2015 08/13/2015 Inactive lisinopril 2.5 mg tablet RxNorm: 831577 1 Tablet(s) PO daily 201501/06/2016 Inactive furosemide 40 mg tablet RxNorm: 897814 1 Tablet(s) PO daily 05/12/2016 Inactive potassium chloride ER 20 mEq tablet,extended release(p art/cryst) RxNorm: 7179200 1 Tablet(s) PO daily 08/14/2015 05/04/2016 Inactive allopurinol 100 mg tablet RxNorm: 374559 1 Tablet(s) PO BID 01/27/2016 Inactive ipratropium 20 mcg-albuterol 100 mcg/actuation mist fo r inhalation RxNorm: 5940816 1 INH Q4H as needed 09/10/2015 09/09/2015 Inactive albuterol sulfate 2.5 mg/3 mL (0.083 %) solution for n ebulization RxNorm: 361065 1 Milliliter(s) INH QID as needed dyspnea 09/19/2015 09/18/2015 Inactive Xarelto oral RxNorm: 3854940 oral 08/14/2015 08/13/2015 Inactive Medication Administered Medication Codes Instructions Start Date Status ceftriaxone 500 mg solution for injection RxNorm: 3116742 07/08/2022 No longer Active triamcinolone acetonide 40 mg/mL suspension for injection Rx Norm: 6006587 Milliliter 07/08/2022 No longer Active Kenalog 40 mg/mL suspension for injection RxNorm: 6871888 1.5Mil liliter 05/31/2020 No longer Active ceftriaxone 1 gram solution for injection RxNorm: 6813836 500Mil ligram 05/31/2020 No longer Active Kenalog 40 mg/mL suspension for injection RxNorm: 6757281 1.5Mil liliter 07/29/2018 No longer Active ceftriaxone 1 gram solution for injection RxNorm: 8971000 07/29/2018 No longer Active Kenalog 40 mg/mL suspension for injection RxNorm: 5710405 Millilite r 11/23/2017 No longer Active ceftriaxone 500 mg solution for injection RxNorm: 2233577 11/23/2017 No longer Active Kenalog 40 mg/mL suspension for injection RxNorm: 4760040 1Milli liter 07/23/2017 No longer Active triamcinolone acetonide 40 mg/mL suspension for injection Rx Norm: 5620569 1Milliliter 01/15/2017 No longer Active Kenalog 40 mg/mL suspension for injection RxNorm: 1816385 Millilite r 03/18/2016 No longer Active Immunizations Vaccine Codes Dose Date Status Influenza CVX: 197 06/03/2018 Influenza CVX: 197 09/01/2017 Influenza CVX: 197 0.5 05/13/2016 Complete Diphtheria, Tetanus, Pertussis CVX: 20 10/14/2014 Tetanus, Diptheria, Pertussis CVX: 10/14/2014 Tetanus/Diptheria CVX: 10/14/2014 Results Observation Observation Code Item Item Code Result Date S [facility] Location Uric Acid Ord77 Uric A 7.7 mg/dL 01/23/2022 Unknown Comp Metabolic Nig402 NA 138 mEq/L 01/23/2022 Unkn own Comp Metabolic Oqv271 K 4.0 mEq/L 01/23/2022 Unkn own Comp Metabolic Xyp120 CL 93 mEq/L 01/23/2022 Unkn own Comp Metabolic Gor536 CO2 36.0 mEq/L 01/23/2022 Unk nown Comp Metabolic Dbk809 ANION GAP 13 01/23/2022 Unkn own Comp Metabolic Vig835 GLUCOSE 84 mg/dL 01/23/2022 Unkn own Comp Metabolic Bfj254 Creat 0.9 mg/dL 01/23/2022 Unkn own Comp Metabolic Izw731 eGFR 96 ml/min/1.73m2 01/24/20 22 Unknown Comp Metabolic Hcd627 BUN 7 mg/dL 01/23/2022 Unkn own Comp Metabolic Ddz715 B/C Ratio 8.2 Ratio 01/23/2022 Unkn own Comp Metabolic Rwr819 CALCIUM 9.6 mg/dL 01/23/2022 Unkn own Comp Metabolic Dxg362 ALK PHOS 69 U/L 01/23/2022 Unkn own Comp Metabolic Kbu951 AST(SGOT) 36 U/L 01/23/2022 Unkn own Comp Metabolic Uya389 ALT(SGPT) 42 U/L 01/23/2022 Unkn own Comp Metabolic Mta790 BILI T 1.9 mg/dL 01/23/2022 Unkn own Comp Metabolic Mfx632 ALBUMIN 4.5 g/dL 01/23/2022 Unkn own Comp Metabolic Ffb538 TPRO 6.9 g/dL 01/23/2022 Unkn own Comp Metabolic Bhr560 GLOB 2.4 g/dL 01/23/2022 Unkn own Comp Metabolic Oro388 A/G Ratio 1.9 Ratio 01/23/2022 Unkn own Comp Metabolic Par491 Osmo 273 mOsmo 01/23/2022 Unkn own CULTURE, [...] C/HDL 5.0 Ratio 09/02/2021 Unknown Comp Metabolic Rgh541 NA 138 mEq/L 09/02/2021 Unkn own Comp Metabolic Moq621 K 3.9 mEq/L 09/02/2021 Unkn own Comp Metabolic Wht186 CL 92 mEq/L 09/02/2021 Unkn own Comp Metabolic Zlk262 CO2 37.0 mEq/L 09/02/2021 Unk nown Comp Metabolic Bzy838 ANION GAP 13 09/02/2021 Unkn own Comp Metabolic Pnq182 GLUCOSE 107 mg/dL 09/02/2021 Unkn own Comp Metabolic Akc213 Creat 0.9 mg/dL 09/02/2021 Unkn own Comp Metabolic Tyv817 eGFR 85 ml/min/1.73m2 09/02/19 22 Unknown Comp Metabolic Vmw178 BUN 9 mg/dL 09/02/2021 Unkn own Comp Metabolic Yjv040 B/C Ratio 9.6 Ratio 09/02/2021 Unkn own Comp Metabolic Rqe776 CALCIUM 9.4 mg/dL 09/02/2021 Unkn own Comp Metabolic Qyl968 ALK PHOS 87 U/L 09/02/2021 Unkn own Comp Metabolic Ega197 AST(SGOT) 59 U/L 09/02/2021 Unkn own Comp Metabolic Ffm091 ALT(SGPT) 82 U/L 09/02/2021 Unkn own Comp Metabolic Vcy550 BILI T 1.4 mg/dL 09/02/2021 Unkn own Comp Metabolic Pkb722 ALBUMIN 4.8 g/dL 09/02/2021 Unkn own Comp Metabolic Pnb356 TPRO 7.3 g/dL 09/02/2021 Unkn own Comp Metabolic Lsx591 GLOB 2.5 g/dL 09/02/2021 Unkn own Comp Metabolic Kxx934 A/G Ratio 1.9 Ratio 09/02/2021 Unkn own Comp Metabolic Ftn697 Osmo 275 mOsmo 09/02/2021 Unkn own Cbc [...] 09/02/19 22 Unknown Cbc With Differential Ord2 Irion% 11.7 % 09/02/19 22 Unknown Cbc With [...] K/ul 022 Unknown Cbc With Differential Ord2 Irion ABS# 1.1 K/ul 09/02/19 22 Unknown Cbc [...] % 05/28/20 Unknown Cbc With Differential Ord2 Irion% 10.0 % 05/28/20 Unknown Cbc With Differential [...] 10/26/2 020 Unknown Cbc With Differential Ord2 Irion ABS# 1.0 K/ul 05/28/20 20 Unknown Cbc With Differential Ord2 Eos ABS# 0.3 K/ul 05/28/20 20 Unknown Cbc With Differential Ord2 Baso ABS# 0.1 K/ul 05/28/20 20 Unknown Tsh Ord6 TSH (3rd IS) 1.71 uIU/mL 05/28/2020 Unkn own Comp Metabolic Ixb128 NA 140 mEq/L 05/28/2020 Unkn own Comp Metabolic Lzy769 K 4.2 mEq/L 05/28/2020 Unkn own Comp Metabolic Iin457 CL 95 mEq/L 05/28/2020 Unkn own Comp Metabolic Qxq410 CO2 39.0 mEq/L 05/28/2020 Unk nown Comp Metabolic Tsm320 ANION GAP 10 05/28/2020 Unkn own Comp Metabolic Nkh848 GLUCOSE 95 mg/dL 05/28/2020 Unkn own Comp Metabolic Cwd234 Creat 0.9 mg/dL 05/28/2020 Unkn own Comp Metabolic Ckb864 eGFR 89 ml/min/1.73m2 05/28/20 20 Unknown Comp Metabolic Eyh874 BUN 12 mg/dL 05/28/2020 Unkn own Comp Metabolic Unx944 B/C Ratio 13.2 Ratio 05/28/2020 Unk nown Comp Metabolic Ujh340 CALCIUM 9.5 mg/dL 05/28/2020 Unkn own Comp Metabolic Pcd511 ALK PHOS 74 U/L 05/28/2020 Unkn own Comp Metabolic Cpr888 AST(SGOT) 28 U/L 05/28/2020 Unkn own Comp Metabolic Qxd795 ALT(SGPT) 44 U/L 05/28/2020 Unkn own Comp Metabolic Vwf440 BILI T 1.0 mg/dL 05/28/2020 Unkn own Comp Metabolic Fhi580 ALBUMIN 4.5 g/dL 05/28/2020 Unkn own Comp Metabolic Kyz911 TPRO 6.9 g/dL 05/28/2020 Unkn own Comp Metabolic Pel397 GLOB 2.4 g/dL 05/28/2020 Unkn own Comp Metabolic Bpq213 A/G Ratio 1.9 Ratio 05/28/2020 Unkn own Comp Metabolic Wmo192 Osmo 279 mOsmo 05/28/2020 Unkn own Testosterone Zog184 Testo 291.6 ng/dL 05/28/2020 Unkn own Cbc [...] 07/24/20 17 Unknown Cbc With Differential Ord2 Irion% 13.6 % 07/24/20 17 Unknown Cbc With [...] K/ul 017 Unknown Cbc With Differential Ord2 Irion ABS# 0.8 K/ul 07/24/20 17 Unknown Cbc With Differential Ord2 Eos ABS# 0.2 K/ul 07/24/20 17 Unknown Cbc With Differential Ord2 Baso ABS# 0.0 K/ul 07/24/20 17 Unknown Comp Metabolic Vew649 NA 133 mEq/L 07/24/2017 Unkn own Comp Metabolic Akz368 K 4.7 mEq/L 07/24/2017 Unkn own Comp Metabolic Xel527 CL 94 mEq/L 07/24/2017 Unkn own Comp Metabolic Eem394 CO2 33.0 mEq/L 07/24/2017 Unk nown Comp Metabolic Peg842 ANION GAP 11 07/24/2017 Unkn own Comp Metabolic Tpp289 GLUCOSE 114 mg/dL 07/24/2017 Unkn own Comp Metabolic Fkw784 Creat 1.0 mg/dL 07/24/2017 Unkn own Comp Metabolic Voe516 eGFR 85 ml/min/1.73m2 07/24/20 17 Unknown Comp Metabolic Odr066 BUN 14 mg/dL 07/24/2017 Unkn own Comp Metabolic Dlc387 B/C Ratio 14.7 Ratio 07/24/2017 Unk nown Comp Metabolic Ovs063 CALCIUM 8.7 mg/dL 07/24/2017 Unkn own Comp Metabolic Yys420 ALK PHOS 120 U/L 07/24/2017 Unkn own Comp Metabolic Lda642 AST(SGOT) 37 U/L 07/24/2017 Unkn own Comp Metabolic Fkf595 ALT(SGPT) 70 U/L 07/24/2017 Unkn own Comp Metabolic Tgz096 BILI T 0.5 mg/dL 07/24/2017 Unkn own Comp Metabolic Pgl896 ALBUMIN 4.0 g/dL 07/24/2017 Unkn own Comp Metabolic Pek631 TPRO 6.8 g/dL 07/24/2017 Unkn own Comp Metabolic Hxp090 GLOB 2.8 g/dL 07/24/2017 Unkn own Comp Metabolic Rms202 A/G Ratio 1.4 Ratio 07/24/2017 Unkn own Comp Metabolic Bcw193 Osmo 268 mOsmo 07/24/2017 Unkn own Cbc [...] 05/12/20 17 Unknown Cbc With Differential Ord2 Irion% 11.4 % 05/12/20 17 Unknown Cbc With [...] K/ul 017 Unknown Cbc With Differential Ord2 Irion ABS# 1.0 K/ul 05/12/20 17 Unknown Cbc [...] C/HDL 4.7 Ratio 05/12/2017 Unknown Comp Metabolic Jwn817 NA 142 mEq/L 05/12/2017 Unkn own Comp Metabolic Rjc255 K 3.8 mEq/L 05/12/2017 Unkn own Comp Metabolic Pmw856 CL 100 mEq/L 05/12/2017 Unkn own Comp Metabolic Cqt405 CO2 34.0 mEq/L 05/12/2017 Unk nown Comp Metabolic Oxu383 ANION GAP 12 05/12/2017 Unkn own Comp Metabolic Jne681 GLUCOSE 106 mg/dL 05/12/2017 Unkn own Comp Metabolic Cpz219 Creat 0.9 mg/dL 05/12/2017 Unkn own Comp Metabolic Bln575 eGFR 96 ml/min/1.73m2 05/12/20 17 Unknown Comp Metabolic Kce435 BUN 9 mg/dL 05/12/2017 Unkn own Comp Metabolic Rfc063 B/C Ratio 10.5 Ratio 05/12/2017 Unk nown Comp Metabolic Tzk396 CALCIUM 9.6 mg/dL 05/12/2017 Unkn own Comp Metabolic Yxi525 ALK PHOS 77 U/L 05/12/2017 Unkn own Comp Metabolic Opx880 AST(SGOT) 33 U/L 05/12/2017 Unkn own Comp Metabolic Kdp478 ALT(SGPT) 52 U/L 05/12/2017 Unkn own Comp Metabolic Sln478 BILI T 0.8 mg/dL 05/12/2017 Unkn own Comp Metabolic Szx882 ALBUMIN 4.6 g/dL 05/12/2017 Unkn own Comp Metabolic Tap405 TPRO 6.6 g/dL 05/12/2017 Unkn own Comp Metabolic Ihw960 GLOB 2.0 g/dL 05/12/2017 Unkn own Comp Metabolic Rbd082 A/G Ratio 2.3 Ratio 05/12/2017 Unkn own Comp Metabolic Trk425 Osmo 282 mOsmo 05/12/2017 Unkn own Tsh [...] 11/13/19 16 Unknown Cbc With Differential Ord2 Irion% 12.2 % 11/13/19 16 Unknown Cbc With [...] K/ul 016 Unknown Cbc With Differential Ord2 Irion ABS# 1.3 K/ul 11/13/19 16 Unknown Cbc With Differential Ord2 Eos ABS# 0.4 K/ul 11/13/19 16 Unknown Cbc With Differential Ord2 Baso ABS# 0.1 K/ul 11/13/19 16 Unknown Cbc With Differential Ord2 New Analyzer Notice Please note new ref ranges starting 08-15-2015 due to implemntation of new five part differential hematolgy analyzer. 11/13/2015 Unknown Comp Metabolic Zyi841 NA 138 mEq/L 11/13/2015 Unkn own Comp Metabolic Wzh393 K 4.1 mEq/L 11/13/2015 Unkn own Comp Metabolic Fjk797 CL 95 mEq/L 11/13/2015 Unkn own Comp Metabolic Kpi869 CO2 34.0 mEq/L 11/13/2015 Unk nown Comp Metabolic Uee519 ANION GAP 13 11/13/2015 Unkn own Comp Metabolic Uxv072 GLUCOSE 98 mg/dL 11/13/2015 Unkn own Comp Metabolic Zrh967 Creat 0.9 mg/dL 11/13/2015 Unkn own Comp Metabolic Zco174 eGFR 94 ml/min/1.73m2 11/13/19 16 Unknown Comp Metabolic Efb880 BUN 14 mg/dL 11/13/2015 Unkn own Comp Metabolic Wps669 B/C Ratio 15.9 Ratio 11/13/2015 Unk nown Comp Metabolic Nnb685 CALCIUM 9.7 mg/dL 11/13/2015 Unkn own Comp Metabolic Ksm077 ALK PHOS 83 U/L 11/13/2015 Unkn own Comp Metabolic Uzb203 AST(SGOT) 26 U/L 11/13/2015 Unkn own Comp Metabolic Fkk655 ALT(SGPT) 33 U/L 11/13/2015 Unkn own Comp Metabolic Qbp272 BILI T 1.1 mg/dL 11/13/2015 Unkn own Comp Metabolic Scx575 ALBUMIN 4.7 g/dL 11/13/2015 Unkn own Comp Metabolic Any776 TPRO 7.3 g/dL 11/13/2015 Unkn own Comp Metabolic Ezh658 GLOB 2.6 g/dL 11/13/2015 Unkn own Comp Metabolic Jhr101 A/G Ratio 1.8 Ratio 11/13/2015 Unkn own Comp Metabolic Erz251 Osmo 276 mOsmo 11/13/2015 Unkn own Comp Metabolic Ukf384 NA 134 mEq/L 05/29/2015 Unkn own Comp Metabolic Bko805 K 4.5 mEq/L 05/29/2015 Unkn own Comp Metabolic Njk237 CL 92 mEq/L 05/29/2015 Unkn own Comp Metabolic Fxu244 CO2 35.0 mEq/L 05/29/2015 Unk nown Comp Metabolic Vzq436 ANION GAP 12 05/29/2015 Unkn own Comp Metabolic Iaf718 GLUCOSE 91 mg/dL 05/29/2015 Unkn own Comp Metabolic Grw560 Creat 0.9 mg/dL 05/29/2015 Unkn own Comp Metabolic Cxi532 eGFR 88 ml/min/1.73m2 05/29/20 15 Unknown Comp Metabolic Ymq512 BUN 17 mg/dL 05/29/2015 Unkn own Comp Metabolic Uap698 B/C Ratio 18.3 Ratio 05/29/2015 Unk nown Comp Metabolic Fqv270 CALCIUM 9.9 mg/dL 05/29/2015 Unkn own Comp Metabolic Irp348 ALK PHOS 103 U/L 05/29/2015 Unkn own Comp Metabolic Htq792 AST(SGOT) 77 U/L 05/29/2015 Unkn own Comp Metabolic Ylg954 ALT(SGPT) 199 U/L 05/29/2015 Unkn own Comp Metabolic Ajc013 BILI T 1.7 mg/dL 05/29/2015 Unkn own Comp Metabolic Xcn359 ALBUMIN 4.5 g/dL 05/29/2015 Unkn own Comp Metabolic Ypr524 TPRO 7.0 g/dL 05/29/2015 Unkn own Comp Metabolic Wmz101 GLOB 2.5 g/dL 05/29/2015 Unkn own Comp Metabolic Dml789 A/G Ratio 1.8 Ratio 05/29/2015 Unkn own Comp Metabolic Ckt985 Osmo 269 mOsmo 05/29/2015 Unkn own Cbc [...] 14.2 % 05/29/20 15 Unknown Comp Metabolic Tqu282 NA 136 mEq/L 05/21/2015 Unkn own Comp Metabolic Ctr094 K 4.8 mEq/L 05/21/2015 Unkn own Comp Metabolic Wli475 CL 98 mEq/L 05/21/2015 Unkn own Comp Metabolic Jrx202 CO2 32.0 mEq/L 05/21/2015 Unk nown Comp Metabolic Uvn943 ANION GAP 11 05/21/2015 Unkn own Comp Metabolic Xnj551 GLUCOSE 107 mg/dL 05/21/2015 Unkn own Comp Metabolic Eqi579 Creat 1.0 mg/dL 05/21/2015 Unkn own Comp Metabolic Ode166 eGFR 86 ml/min/1.73m2 05/21/20 15 Unknown Comp Metabolic Zlj158 BUN 12 mg/dL 05/21/2015 Unkn own Comp Metabolic Vjc174 B/C Ratio 12.6 Ratio 05/21/2015 Unk nown Comp Metabolic Aoc575 CALCIUM 9.2 mg/dL 05/21/2015 Unkn own Comp Metabolic Isr582 ALK PHOS 70 U/L 05/21/2015 Unkn own Comp Metabolic Rdz545 AST(SGOT) 22 U/L 05/21/2015 Unkn own Comp Metabolic Ytq331 ALT(SGPT) 32 U/L 05/21/2015 Unkn own Comp Metabolic Tdu476 BILI T 1.3 mg/dL 05/21/2015 Unkn own Comp Metabolic Uxz843 ALBUMIN 4.2 g/dL 05/21/2015 Unkn own Comp Metabolic Vyx584 TPRO 6.3 g/dL 05/21/2015 Unkn own Comp Metabolic Kql137 GLOB 2.1 g/dL 05/21/2015 Unkn own Comp Metabolic Xvw965 A/G Ratio 2.0 Ratio 05/21/2015 Unkn own Comp Metabolic Tmh201 Osmo 272 mOsmo 05/21/2015 Unkn own Lipid [...] Procedure Codes Date THER/PROPH/DIAG INJ SC/IM CPT-4: 32618 07/08/2022 TRIAMCINOLONE ACET INJ NOS 10 mg CPT-4: J3301 022 THER/PROPH/DIAG INJ SC/IM CPT-4: 70905 07/08/2022 ROCEPHIN, PER 250 MG CPT-4: J0696 07/08/2022 ROCEPHIN, PER 250 MG CPT-4: J0696 05/31/2020 THER/PROPH/DIAG INJ SC/IM CPT-4: 03865 05/31/2020 TRIAMCINOLONE ACET INJ NOS 10 mg CPT-4: J3301 020 TRIAMCINOLONE ACET INJ NOS 10 mg CPT-4: J3301 018 ROCEPHIN, PER 250 MG CPT-4: J0696 07/29/2018 TRIAMCINOLONE ACET INJ NOS 10 mg CPT-4: J3301 018 ROCEPHIN, PER 250 MG CPT-4: J0696 11/23/2017 TRIAMCINOLONE ACET INJ NOS 10 mg CPT-4: J3301 017 TRIAMCINOLONE ACET INJ NOS 10 mg CPT-4: J3301 017 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 3-[address]: [id number] CPT-4: G0436 11/11/2016 IMMUNIZATION ADMIN CPT-4: 48204 05/13/2016 IIV4 FLU VACC NO PRESERV ID Formatting Model/CDA Sections, Assigned to/Kiki Mcguire SNOMED CT: [id number] CPT-4: 99782Ulnownl 05/13/2016 THER/PROPH/DIAG INJ SC/IM CPT-4: 26865 03/18/2016 TRIAMCINOLONE ACET INJ NOS 10 mg CPT-4: J3301 016 Vital Signs Date Vital 09/29/2022 Blood Pressure 1: 162/70 Code: 8480-6 BMI: 29.8 Code: 63091-3 Heart Rate 1: 76 bpm Height: 5'10" Code: 8302-2 SpO2: 93% Temperature: 36.3 (C) / 97.4 (F) Weight: 208 lbs Code: 38282-5 09/09/2022 Blood Pressure 1: 122/84 Code: 8480-6 Heart Rate 1: 100 bpm Height: 5'10" Code: 8302-2 SpO2: 93% Temperature: 36.2 (C) / 97.1 (F) 08/07/2022 Blood Pressure 1: 132/72 Code: 8480-6 BMI: 30.6 Code: 46340-5 Heart Rate 1: 74 bpm Height: 5'10" Code: 8302-2 SpO2: 94% Temperature: 36.2 (C) / 97.2 (F) Weight: 213 lbs Code: 39345-8 07/08/2022 Blood Pressure 1: 150/88 Code: 8480-6 BMI: 30.0 Code: 39911-8 Heart Rate 1: 51 bpm Height: 5'10" Code: 8302-2 Respiratory Rate: 17 bpm SpO2: 93% Temperature: 36.2 (C) / 97.2 (F) Weight: 209 lbs Code: 39797-2 01/23/2022 Blood Pressure 1: 146/86 Code: 8480-6 BMI: 30.3 Code: 32361-9 Heart Rate 1: 70 bpm Height: 5'10" Code: 8302-2 Respiratory Rate: 18 bpm SpO2: 90% Temperature: 36.3 (C) / 97.3 (F) Weight: 211 lbs Code: 43148-6 12/25/2021 Blood Pressure 1: 138/84 Code: 8480-6 BMI: 30.1 Code: 18047-2 Heart Rate 1: 84 bpm Height: 5'10" Code: 8302-2 Respiratory Rate: 22 bpm SpO2: 94% Temperature: 36.4 (C) / 97.5 (F) Weight: 210 lbs Code: 25238-2 12/02/2021 Blood Pressure 1: 140/87 Code: 8480-6 BMI: 30.7 Code: 55871-4 Heart Rate 1: 78 bpm Height: 5'10" Code: 8302-2 SpO2: 93% Temperature: 35.8 (C) / 96.5 (F) Weight: 214 lbs Code: 98021-5 09/25/2021 Blood Pressure 1: 144/86 Code: 8480-6 Heart Rate 1: 84 bpm Height: Code: 8302-2 Respiratory Rate: 19 bpm SpO2: 93% Temperature: 36 .6 (C) / 97.8 (F) Weight: Code: 89876-4 08/29/2021 Blood Pressure 1: 142/86 Code: 8480-6 BMI: 30.8 Code: 33540-3 Heart Rate 1: 73 bpm Height: 5'10" Code: 8302-2 Respiratory Rate: 17 bpm SpO2: 93% Temperature: 36.4 (C) / 97.6 (F) Weight: 215 lbs Code: 92252-0 02/27/2021 Blood Pressure 1: 156/80 Code: 8480-6 BMI: 29.8 Code: 20127-1 Heart Rate 1: 74 bpm Height: 5'10" Code: 8302-2 Respiratory Rate: 16 bpm SpO2: 94% Temperature: 36.1 (C) / 97.0 (F) Weight: 208 lbs Code: 11620-1 10/30/2020 Blood Pressure 1: 128/76 Code: 8480-6 BMI: 30.6 Code: 28048-7 Heart Rate 1: 76 bpm Height: 5'10" Code: 8302-2 SpO2: 92% Temperature: 36.3 (C) / 97.4 (F) Weight: 213 lbs Code: 36757-5 05/31/2020 Blood Pressure 1: 128/70 Code: 8480-6 BMI: 29.3 Code: 08960-1 Heart Rate 1: 76 bpm Height: 5'10" Code: 8302-2 Respiratory Rate: 19 bpm SpO2: 94% Temperature: 36.9 (C) / 98.4 (F) Weight: 204 lbs Code: 05643-8 08/12/2018 SpO2: 92% 08/09/2018 Blood Pressure 1: 156/80 Code: 8480-6 BMI: 29.8 Code: 59655-5 Heart Rate 1: 72 bpm Height: 5'10" Code: 8302-2 SpO2: 91% Weight: 208 l bs Code: 07694-9 07/29/2018 Blood Pressure 1: 140/82 Code: 8480-6 BMI: 29.8 Code: 15379-8 Heart Rate 1: 85 bpm Height: 5'10" Code: 8302-2 SpO2: 84% Temperature: 37.7 (C) / 99.8 (F) Weight: 208 lbs Code: 40842-2 11/23/2017 Blood Pressure 1: 118/68 Code: 8480-6 BMI: 30.4 Code: 82400-8 Heart Rate 1: 73 bpm Height: 5'10" Code: 8302-2 SpO2: 95% Temperature: 37.1 (C) / 98.8 (F) Weight: 212 lbs Code: 54828-1 11/10/2017 Blood Pressure 1: 138/78 Code: 8480-6 BMI: 30.1 Code: 56558-0 Heart Rate 1: 76 bpm Height: 5'10" Code: 8302-2 SpO2: 98% Weight: 210 l bs Code: 35147-2 08/04/2017 Blood Pressure 1: 124/76 Code: 8480-6 BMI: 29.4 Code: 16911-3 Heart Rate 1: 89 bpm Height: 5'10" Code: 8302-2 SpO2: 93% Temperature: 37.4 (C) / 99.3 (F) Weight: 205 lbs Code: 21296-8 07/23/2017 Blood Pressure 1: 130/60 Code: 8480-6 BMI: 29.3 Code: 45234-2 Heart Rate 1: 85 bpm Height: 5'10" Code: 8302-2 SpO2: 92% Temperature: 37.0 (C) / 98.6 (F) Weight: 204 lbs Code: 97822-8 05/12/2017 Blood Pressure 1: 146/80 Code: 8480-6 BMI: 30.6 Code: 03592-9 Heart Rate 1: 78 bpm Height: 5'10" Code: 8302-2 SpO2: 96% Weight: 213 l bs Code: 91209-6 01/15/2017 Blood Pressure 1: 140/78 Code: 8480-6 BMI: 29.7 Code: 95049-7 Heart Rate 1: 70 bpm Height: 5'10" Code: 8302-2 SpO2: 93% Weight: 210 l bs Code: 35421-3 11/11/2016 Blood Pressure 1: 162/86 Code: 8480-6 Bl ood Pressure 1: 138/88 Code: 8480-6 BMI: 29.7 Code: 75265-3 Heart Rate 1: 62 bpm Height: 5'10" Code: 8302-2 SpO2: 98% Weight: 210 lbs Code: 59898-7 05/13/2016 Blood Pressure 1: 130/70 Code: 8480-6 BMI: 29.0 Code: 50772-8 Heart Rate 1: 60 bpm Height: 5'10" Code: 8302-2 SpO2: 91% Weight: 205 l bs Code: 99881-1 11/13/2015 Blood Pressure 1: 136/86 Code: 8480-6 BMI: 29.3 Code: 92552-6 Heart Rate 1: 56 bpm Height: 5'10" Code: 8302-2 SpO2: 94% Weight: 207 l bs Code: 52054-1 08/14/2015 Blood Pressure 1: 138/68 Code: 8480-6 BMI: 29.1 Code: 90255-8 Heart Rate 1: 96 bpm Height: 5'10" Code: 8302-2 SpO2: 98% Weight: 206 l bs Code: 56076-5 06/11/2015 Blood Pressure 1: 120/72 Code: 8480-6 BMI: 27.2 Code: 35477-0 Heart Rate 1: 87 bpm Height: 5'10" Code: 8302-2 SpO2: 93% Weight: 192 l bs 8 oz Code: 07676-7 05/30/2015 Blood Pressure 1: 110/80 Code: 8480-6 Heart Rate 1: 147 bpm SpO2: 96% 05/21/2015 Blood Pressure 1: 124/60 Code: 8480-6 BMI: 29.1 Code: 58778-8 Heart Rate 1: 59 bpm Heart Rate 1: 120 bpm Height: 5'10" Code: 8302-2 SpO2: 97% Weight: 206 lbs Code: 64595-9 Functional Status No Functional Status data Reason [...] Encounter Performer Location Location Address Codes Date [id number]) [id number] EST. PATIENT, LEVEL IV Diagnosis: COPD (chronic obstructive pulmonary disease)[ICD10: J44.9] Diagnosis: Paroxysmal A-fib[ICD10: I48.0] Diagnosis: Essential (primary) hypertension[ICD10: I10] Mela Nicolas MD, [facility] [address] [place] [address] CPT-4: 9921 4 09/29/2022 ([id number]) [id number] EST. PATIENT, LEVEL III Diagnosis: Chronic obstructive pulmonary disease with (acute) exacerbation[ICD10: J44.1] Tasha Nicolas MD, [facility] [address] [place] [address] CPT-4: 98555 09/09/2022 ([id number]) 08187 EST. PATIENT, LEVEL IV Diagnosis: Chronic obstructive pulmonary disease with (acute) exacerbation[ICD10: J44.1] Diagnosis: Incidental lung nodule[ICD10: R91.1] Diagnosis: Cough in adult[ICD10: R05.9] Tasha Nicolas MD, [facility] [address] [place] [address] CPT-4: 70409 08/07 ([id number]) 67067 EST. PATIENT, LEVEL IV Diagnosis: Chronic obstructive pulmonary disease with (acute) exacerbation[ICD10: J44.1] Diagnosis: Cough productive of yellow sputum[ICD10: R05.8] Diagnosis: Hypoxemia[ICD10: R09.02] [facility] [address] [place] [address] CPT-4: 01955 07/08/2022 ([id number]) 54195 EST. PATIENT, LEVEL IV Diagnosis: COPD with exacerbation[ICD10: J44.1] Diagnosis: Elevated liver enzymes[ICD10: R74.8] Diagnosis: Cough productive of yellow sputum[ICD10: R05.8] Tasha Nicolas MD, [facility] [address] [place] [address] CPT-4: 9921 4 01/23/2022 ([id number]) 35763 EST. PATIENT, LEVEL IV Diagnosis: Essential (primary) hypertension[ICD10: I10] Diagnosis: Panlobular emphysema[ICD10: J43.1] Diagnosis: Elevated liver enzymes[ICD10: R74.8] Tasha Nicolas MD, [facility] [address] [place] [address] CPT-4: 9921 4 12/25/2021 ([id number]) 17298 EST. PATIENT, LEVEL III Diagnosis: Chronic obstructive pulmonary disease with (acute) exacerbation[ICD10: J44.1] Mela Nicolas MD, [facility] [address] [place] [address] CPT-4: 91245 12/02/2021 ([id number]) 83923 EST. PATIENT, LEVEL IV Diagnosis: COPD with exacerbation[ICD10: J44.1] Diagnosis: Shortness of breath[ICD10: R06.02] Diagnosis: Tobacco use[ICD10: Z72.0] Diagnosis: Essential (primary) hypertension[ICD10: I10] Tasha Nicolas MD, [facility] [address] [place] [address] CPT-4: 9921 4 09/25/2021 ([id number]) 93973 EST. PATIENT, LEVEL IV Diagnosis: Essential (primary) hypertension[ICD10: I10] Diagnosis: COPD with exacerbation[ICD10: J44.1] Diagnosis: Cough productive of yellow sputum[ICD10: R05.8] Diagnosis: Mixed hyperlipidemia[ICD10: E78.2] Tasha christianson MD, [facility] [address] [place] [address] CPT-4: 9921 4 08/29/2021 ([id number]) [id number] EST. PATIENT, LEVEL IV Diagnosis: Essential (primary) hypertension[ICD10: I10] Diagnosis: COPD with exacerbation[ICD10: J44.1] Tasha Nicolas MD, [facility] [address] [place] [address] CPT-4: 9921 4 02/27/2021 ([id number]) 58491 EST. PATIENT, LEVEL III Diagnosis: Essential (primary) hypertension[ICD10: I10] Diagnosis: COPD with exacerbation[ICD10: J44.1] Tasha Nicolas MD, [facility] [address] [place] [address] CPT-4: 9921 3 10/30/2020 ([id number]) PREV VISIT EST AGE 40-64 Diagnosis: Encounter for general adult medical examination with abnormal findings[ICD10: Z00.01] Tasha Nicolas MD, [facility] [address] [place] [address] CPT-4: 14098 05/31/2020 ([id number]) 46305 EST. PATIENT, LEVEL I Diagnosis: COPD with exacerbation[ICD10: J44.1] Diagnosis: Cough[ICD10: R05] Diagnosis: Pneumonia of right lower lobe due to infectious organism[ICD10: J18.9] Tasha Nicolas MD, [facility] [address] [place] [address] CPT-4: 87050 05/31/2020 ([id number]) Miscellaneous no charge Diagnosis: Chronic obstructive pulmonary disease with (acute) exacerbation[ICD10: J44.1] Mela Nicolas MD, [facility] [address] [place] [address] CPT-4: 87022 08/12/2018 ([id number]) 31339 EST. PATIENT, LEVEL III Diagnosis: Cough[ICD10: R05] Diagnosis: Chronic obstructive pulmonary disease with (acute) exacerbation[ICD10: J44.1] Mela Nicolas MD, [facility] [address] [place] [address] CPT-4: 01051 08/09/2018 ([id number]) 77530 EST. PATIENT, LEVEL IV Diagnosis: Chronic obstructive pulmonary disease with (acute) exacerbation[ICD10: J44.1] Diagnosis: Cough[ICD10: R05] Diagnosis: Hypoxemia[ICD10: R09.02] Diagnosis: Essential (primary) hypertension[ICD10: I10] Mela Nicolas MD, [facility] [address] [place] [address] CPT-4: 9921 4 07/29/2018 ([id number]) 22433 EST. PATIENT, LEVEL III Diagnosis: Cough[ICD10: R05] Diagnosis: Chronic obstructive pulmonary disease with (acute) exacerbation[ICD10: J44.1] Mela Nicolas MD, [facility] [address] [place] [address] CPT-4: 56662 11/23/2017 ([id number]) 28516 EST. PATIENT, LEVEL III Diagnosis: Essential (primary) hypertension[ICD10: I10] Diagnosis: Tobacco use[ICD10: Z72.0] Mela Nicolas MD, [facility] [address] [place] [address] CPT-4: 57769 11/10 ([id number]) 65765 EST. PATIENT, LEVEL IV Diagnosis: Essential (primary) hypertension[ICD10: I10] Diagnosis: Shortness of breath[ICD10: R06.02] Diagnosis: Tobacco use[ICD10: Z72.0] Tasha Nicolas MD, [facility] [address] [place] [address] CPT-4: 71140 08/04/2017 15472 EST. PATIENT, LEVEL III Diagnosis: Acute bronchitis due to other specified organisms[ICD10: J20.8] Diagnosis: Cough[ICD10: R05] Diagnosis: Fever, unspecified[ICD10: R50.9] Cristy Walton, [facility] [address] [place] [address] CPT-4: 95914 07/23 ([id number]) 15710 EST. PATIENT, LEVEL IV Diagnosis: Essential (primary) hypertension[ICD10: I10] Diagnosis: Mixed hyperlipidemia[ICD10: E78.2] Diagnosis: Encounter for screening for malignant neoplasm of prostate[ICD10: Z12.5] Diagnosis: Laceration without foreign body of right hand, initial encounter[ICD10: S61.411A] Mela Nicolas MD, [facility] [address], [place] [id number] CPT-4: 14487 05/12/2017 ([id number]) 74814 EST. PATIENT, LEVEL III Diagnosis: Allergic contact dermatitis due to plants, except food[ICD10: L23.7] Mela Nicolas MD, [facility] [address] [place] [address] CPT-4: 46412 01/15/2017 ([id number]) 72699 EST. PATIENT, LEVEL III Diagnosis: Essential (primary) hypertension[ICD10: I10] Diagnosis: Tobacco use[ICD10: Z72.0] Diagnosis: Mixed hyperlipidemia[ICD10: E78.2] Diagnosis: Encounter for screening for malignant neoplasm of prostate[ICD10: Z12.5] Mela Nicolas MD, [facility] [address] [place] [address] CPT-4: 40835 11/11/2016 ([id number]) 49004 EST. PATIENT, LEVEL III Diagnosis: Essential (primary) hypertension[ICD10: I10] Mela Nicolas MD, [facility] [address] [place] [address] CPT-4: 9921 3 05/13/2016 ([id number]) 09493 EST. PATIENT, LEVEL III Diagnosis: Essential (primary) hypertension[ICD10: I10] Mela Nicolas MD, [facility] [address] [place] [address] CPT-4: 9921 3 11/13/2015 ([id number]) 29436 EST. PATIENT, LEVEL IV Diagnosis: Idiopathic sleep related nonobstructive alveolar hypoventilation[ICD10: G47.34] Diagnosis: Chronic atrial fibrillation[ICD10: I48.2] Diagnosis: Edema, unspecified[ICD10: R60.9] Mela salcedo MD, [facility] [address] [place] [address] CPT-4: 9921 4 08/14/2015 ([id number]) 09684 EST. PATIENT, LEVEL IV Diagnosis: Chronic atrial fibrillation[ICD10: I48.2] Diagnosis: Idiopathic sleep related nonobstructive alveolar hypoventilation[ICD10: G47.34] Tasha Nicolas MD, [facility] [address] [place] [address] CPT-4: 61550 06/11/2015 ([id number]) Patient admitted to the [facility] from clinic (NO CHARGE) Diagnosis: Tachycardia, unspecified[ICD10: R00.0] Tasha Blas MD, [facility] [address] [place] [address] CPT-4: 9921 2N 05/30/2015 ([id number]) Patient admitted to the [facility] from clinic (NO CHARGE) Diagnosis: Encounter for other general examination[ICD10: Z00.8] Diagnosis: Tobacco use[ICD10: Z72.0] Diagnosis: Edema, unspecified[ICD10: R60.9] Diagnosis: Tachycardia, unspecified[ICD10: R00.0] Diagnosis: Shortness of breath[ICD10: R06.02] Tasha christianson MD, [facility] [address] [place] [address] CPT-4: 9921 2N 05/21/2015 Plan of Care [...] acute changes. 09/29/2022 Appointment: Mela Stern WPtel: [address] [place], [place] [phone] (30 min) Complex 09/29/2022 Patient Education: Patient [...] [facility] 09/09/2022 Appointment: [facility]Ptel[phone] (15 min) Moderate 09/09/2022 Patient Education: Patient [...] scan 08/07/2022 Appointment: Tasha Nicolas WPtel: [address] [phone] (15 min) Moderate 08/07/2022 Patient Education: Patient [...] take a probiotic - like melvin gutierrez on license of [facility] - to prevent a really bad infection in your gut from the antibiotic - called Cdiff - you can actually ask bob for refrigerated probiotic - which is even better than culturetwine rocephin and kenalog injection given to patient today in clinic 07/08/2022 Appointment: Tasha [facility]Ptel[facility] [address] [phone] (15 min) Moderate 07/08/2022 Patient Education: Patient [...] 1 month. 12/25/2021 Appointment: Tasha Nicolas WPtel: [address] [place], [place] [phone] (15 min) Moderate 12/25/2021 Patient Education: Patient [...] monitor for acute changes. 12/02/2021 Appointment: [facility] Stern [facility]Ptel[phone] (30 min) Complex 12/02/2021 Patient Education: Patient [...] would like for him to see a fur clipper - he is not interested in seeing a fur clipper at this time. 09/25/2021 Appointment: Tasha Nicolas WPtel: [phone] [place] 30 min appointments only in this slot 09/25/2021 Patient Education: Patient Medication Summary Completed 09/25/2021 Patient Education: Smoking and Tobacco Addiction Completed 09/25/2021 Patient Education: Hypertension Completed 09/25/2021 Appointment: Tasha Nicolas WPtel: [phone] (15 min) Moderate 09/17/2021 Appointment: Tasha Nicolas WPtel: [address] [place], [place] [phone] (15 min) Moderate 09/12/2021 Patient Education: Patient Medication Summary Completed 09/06/2021 Appointment: Tasha Nicolas WPtel: [phone] [place] (15 min) Moderate 08/29/2021 Patient Education: [...] home. 02/27/2021 Appointment: Tasha [facility] WPtel[facility] [address] [phone] (15 min) Moderate 02/27/2021 Patient Education: Patient [...] home. 10/30/2020 Appointment: Tasha [facility]Ptel[facility] [address] [phone] (15 min) Moderate 10/30/2020 Patient Education: Patient [...] year. 05/31/2020 Appointment: Tasha [facility]Ptel[facility] [address] [phone] (15 min) Moderate 05/31/2020 Patient Education: Patient [...] if needed. 08/09/2018 Appointment: Mela Stern [facility]Ptel[facility] [phone] (15 min) Moderate 08/09/2018 Patient Education: Patient [...] at rest-will send orders for oxygen to [facility] 07/29/2018 Appointment: Mela Sterntel: [phone] (15 min) Moderate 07/29/2018 Patient Education: Patient Medication Summary Completed 07/29/2018 Patient Education: Hypertension Completed 07/29/2018 Appointment: Mela Stern WPtel: [phone] (15 min) Moderate 05/11/2018 Visit Plan: [...] for acute changes. 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 08/04/2017 Appointment: Tasha Nicolas WPtel: [phone] (15 min) Moderate 08/04/2017 Patient Education: Patient [...] patient's pharmacy. 07/23/2017 Appointment: Cristy Hutson WPtel: [facility] (15 min) Moderate 07/23/2017 Patient Education: Patient Medication Summary Completed 07/23/2017 Appointment: Mela Stern WPtel: [address] [place], [place] [phone] (15 min) Moderate 05/12/2017 Patient Education: Patient Medication Summary Completed 05/12/2017 Patient Education: Obesity Completed 1 Visit Plan: Poison Sindy - pt is to use to pical treatments as directed. Pt is cleanse clothing in hot water with soap, and call if symptoms do not improve or if they worsen. 01/15/2017 Appointment: Mela Stern WPtel: [phone] (15 min) Moderate 01/15/2017 Patient Education: Patient [...] use-discussed cessation 11/11/2016 Appointment: Mela Stern WPtel: [phone] (30 min) Complex 11/11/2016 Patient Education: Patient [...] at home. 05/13/2016 Appointment: Mela Stern WPtel: [phone] (30 min) Complex 05/13/2016 Patient Education: Patient [...] at home. 11/13/2015 Appointment: Mela Stern WPtel: [phone] (30 min) Complex 11/13/2015 Patient Education: Patient Medication Summary Completed 11/13/2015 Care Plan: Comp Metabolic Pending Care Plan: Cbc With Differential Pending 11/13/2015 Care Plan: Lipid Pending 11/13/2015 Care Plan: Tsh Pending 11/13/2015 Visit Plan: Obstructive sleep apnea-eloise ent to get CPAP from [facility]-patient had cardioversion then [facility]patient to follow up with Dr Carty Kiran-vpkmtmci-ehkfseuv lasix 40mg to daily-monitor symptoms for return [...] take a probiotic - like cult urelle, [employer] - to prevent a really bad infection [...] to take a probiotic - like culturelle, [employer] - to prevent a really bad infection [...] would like for him to see a fur clipper - he is not interested in seeing a fur clipper at this time. 09/25/2021 lucrecia 180mg or [...] ROCEPHIN AND KENALOG INJECTIONS TODAY OXYGEN THROUGH [facility] [place] USE ALBUTEROL NEBULIZER NEEDED . 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 08/04/2017 . Bronchitis - [...] Obstructive sleep apnea-patient to get CPAP from [facility]-patient had cardioversion then [facility]patient to follow up with Dr Carty Kbfuh-pchngbeg-oaryaqij lasix 40mg to daily-monitor symptoms for return [...]
--- OUTSIDE RECORDS SUMMARY | 2022-12-02 16:07 | XMS REPORT | Encounter Summary ---
Author Author [facility] Organization [facility] Address Unknown Phone Unavailable Care Team Providers Care Ammunition Storage Superintendent Name Role Phone Tasha Nicolas MD PCP Luzma Mendoza RN Unavailable Unavailable Encounter Details Care Team Description Date Type Department 10/24/2022 Travel Social History Date Tobacco Use Types Packs/Day Years Used Quit: 04/30/2015 Smoking Tobacco: Former Cigarettes 1 20 Comments Alcohol Use Standard Drinks/Week Yes 17 (1 standard drink = 0.6 oz pure alcohol) Sex Assigned at Date Recorded Not on file Date Recorded COVID-19 Exposure Response 10/24/2022 1:20 PM CDT In the last 10 days, have you been in contact with N o / Unsure someone who was confirmed or suspected to have Coronavirus/COVID-19? documented as of this encounter Functional Status Date of Assessment Functional Status Response 06/02/2015 Does the patient have a hearing impairment: No 06/02/2015 Does the patient have a visual impairment: No 06/02/2015 Does the patient have impaired ambulation: No 06/02/2015 Does the patient have an activity of daily living No (ADL) impairment: 06/02/2015 Does the patient have an instrumental activity of No daily living (IADL) impairment: Date of Assessment Cognitive Status Response 06/02/2015 Does the patient have a cognitive impairment: No documented as of this encounter Plan of Treatment Not on filedocumented as of this encounter Visit Diagnoses Not on filedocumented in this encounter Care Teams Start Date End Date Ammunition Storage Superintendent Relationship Specialty 05/31/15 Tasha Nicolas MD PCP - General [address] [address] 06/01/15 Luzma Mendoza RN documented as of this encounter
--- OUTSIDE RECORDS SUMMARY | 2022-12-02 16:07 | XMS REPORT | Encounter Summary ---
Author Author [facility] Organization [facility] Address Unknown Phone Unavailable Care Team Providers Care Vice President Global Digital Marketing Name Role Phone Tasha Nicolas MD PCP Luzma Mendoza RN Unavailable Unavailable Reason for Visit * Reason Onset Date Comments Care Coordination 11/03/2022 Encounter Details Care Team Description Date Type Department Rajesh Camp, RN Care Coordination 11/03/2022 Telephone Cardiology: [facility] [address] [place] [address], [address] [place] [address] Social History Date Tobacco Use Types Packs/Day [...] impairment: No documented as of this encounter Miscellaneous Notes * Telephone Encounter - Rajesh Camp RN - 11/03/2022 1:52 PM CDT RC to pt. Discussed pt is on list to get scheduled for his procedure and will CB to pt to coordinate in the next several weeks, for a likely procedure date in or Mar, 2023. Pt reports he is interested in a sooner date and requested po tential for one of [facility]'s partners do the procedure. Will discuss w/ [facility] for plan and CB to pt w/ updated recs. Reviewed plan with the patient. Patient verbalized understanding and does not nichols ve any further questions or concerns. No further education requested from magdiel oneill. Patient has our contact information for future needs. * Telephone Encounter - Rajesh Camp RN - 11/03/2022 1:51 PM CDT ----- Message from Danielle Gonzalez LPN sent at 11/03/2022 12:10 PM CDT ----- Regarding: [facility]- f/u OV VM on triage line from patient at 11:55am. Said that he saw [facility] in [place] and he was going to schedule ablation. He can also come to [facility] if it can be done sooner then at [place]. Call him at #[phone] to schedule. documented in this encounter Plan of Treatment Not on filedocumented as of this encounter Visit Diagnoses Not on filedocumented in this encounter Care Teams Start Date End Date Vice President Global Digital Marketing Relationship Specialty 05/31/15 Tasha Nicolas MD PCP - General [address] [address] [place] [address] 06/01/15 Luzma Mendoza RN documented as of this encounter
--- OUTSIDE RECORDS SUMMARY | 2022-12-02 16:07 | XMS REPORT | Clinical Summary ---
Author Author [facility] Organization [facility] Address Unknown Phone Unavailable Care Team Providers Care Fig Bar Machine Operator Name Role Phone Tasha Nicolas MD PCP Luzma Mendoza RN Unavailable Unavailable Source Comments Some departments are not documenting in the electronic medical record. If you d o not see the information that you expected, contact Release of Information in [facility] [employer] Information Management department at [phone] for further assistan ce in locating additional records.[facility] Allergies No known active allergies Medications End Date Status Medication Sig Dispensed Refills Start Date Active albuterol (VENTOLIN HFA, Inhale two 0 PROAIR HFA) 90 puffs by mcg/actuation inhaler mouth into the lungs every 6 hours as needed for Wheezing. Active colchicine 0.6 mg tablet Take two 0 tablets by mouth as Needed. Active lisinopril (PRINIVIL, Take one 0 ZESTRIL) 2.5 mg tablet tablet by mouth daily. Active albuterol-ipratropium Inhale 3 mL 0 (DUONEB) 0.5 mg-3 mg(2.5 solution by mg base)/3 mL nebulizer nebulizer as solution directed every 4 hours as needed for Wheezing. Active furosemide (LASIX) 40 mg Take one 0 tablet tablet by mouth twice daily. Active allopurinol (ZYLOPRIM) Take one 0 100 mg tablet tablet by mouth twice daily. Active metoprolol (LOPRESSOR) 25 Take 1 Tab by 180 Tab 3 06/02/201 mg tablet mouth twice 5 daily. Active amiodarone (CORDARONE) Take two 0 200 mg tablet tablets by mouth daily. Take with food. Active digoxin (LANOXIN) 250 mcg Take one 0 (0.25 mg) tablet tablet by mouth daily. Active diltiazem CD (CARDIZEM Take one 0 CD) 240 mg capsule capsule by mouth daily. Active apixaban (ELIQUIS) 5 mg Take two 0 tablet tablets by mouth twice daily. Active Ascorbic Take by 0 Poup-Nxfdgjymn-Pcp mouth. (EMERGEN-C) 1,000 mg pwep Active OXYGEN-AIR DELIVERY Use as 0 SYSTEMS MISC directed. 3ltr o2 per [address]c [address] [facility] Active Problems Problem Noted Date Atrial fibrillation 10/18/2022 Overview: Per OV note on 10/01/[address] Dao Carty ([facility]) 09/16/2022 - DARSHANA + DCCV: ([facility]) - DARSHANA: Dilated LA and KRISITNE, no clot or thrombus was seen. Dilated RA. Patient was tachycardiac, systolic func tion appeared to be in the lower normal limit which could be underestima nannette due to the tachycardia. Mild MVR. Mild TVR. - DCCV: DC cardioversion was successfu l in terminating AF, patient could not maintain SR and went back into AF. Patient will be loaded with Amiodarone bolus and a drip and plannin g to attempt another cardioversion later today. 09/16/2022 - DCCV: ([facility]) Successful electrical cardioversion after 3 attemp ts. COPD (chronic obstructive pulmonary disease) 023 Overview: Per OV note on 10/01/[address] Dao Carty ([facility]) DELIA (obstructive sleep apnea) 10/18/2022 Overview: Per OV note on 10/01/[address] Dao Carty ([facility]) NICM (nonischemic cardiomyopathy) 06/01/2015 Overview: 10/09/2022 - ECHO: ([facility]) LV cavity size is normal. There is mild c oncentric LVH. LV systolic function is normal. EF ~ 60-65%. There were no regional wall motion abnormalities identified. Alcohol use 06/01/2015 Tobacco use disorder 06/01/2015 Atrial flutter 05/31/2015 Encounters Care Team Description Date Type Specialty Camden Padilla MD Follow-up Phone Call (Procedure set up ) 11/06/2022 Telephone Cardiology Rajesh Camp, RN Care Coordination 11/03/2022 Telephone Cardiology Camden Padilla MD 10/24/2022 Office Visit Cardiology 10/24/2022 Travel Lashaun Cavazos RN New Patient; Records Request 10/18/2022 Patient Profile Cardiology Bolivar Junea 09/25/2022 Telephone Cardiology Camden Padilla MD External Communication 09/18/2022 Documentation Cardiology from Last 3 Months Surgical History Surgery Date Site/Laterality Comments CARDIOVERSION ELECTROCARDIOGRAM DOPPLER ECHOCARDIOGRAPHY TRANSESOPHAGEAL ECHO Medical History Medical History Date Comments Atrial flutter with rapid ventricular response (HCC) Coronary artery disease Atrial fibrillation (HCC) 10/18/2022 COPD (chronic obstructive pulmonary 10/18/2022 disease) (HCC) DELIA (obstructive sleep apnea) 10/18/2022 Family History Relation Name Status Comments Father Mother Alive Social History Date Tobacco Use Types Packs/Day Years Used Quit: 04/30/2015 Smoking Tobacco: Former Cigarettes 1 20 Tobacco Cessation: Counseling Given: Not Answered Comments Alcohol Use Standard Drinks/Week Yes 17 (1 standard drink = 0.6 oz pure alcohol) Sex Assigned at Date Recorded Not on file Obstetrics History Last Filed Vital Signs Reading Time Taken Comments Vital Sign 153/74 10/24/2022 1:53 PM CDT Blood Pressure 68 10/24/2022 1:53 PM CDT Pulse 36.4 C (97.6 F) 10/24/2022 1:53 PM CDT Temperature - - Respiratory Rate 92% 06/02/2015 9:10 AM CDT Oxygen Saturation - - Inhaled Oxygen Concentration 95.2 kg (209 lb 12.8 oz) 10/24/2022 1:53 PM CDT Weight 180.3 cm (5' 10.98") 06/01/2015 1:12 PM CDT Height 29.27 06/01/2015 1:12 PM CDT Body Mass Index Plan of Treatment Health Maintenance Due Date Last Done Comments MEDICARE ANNUAL WELLNESS 1955 VISIT PNEUMOCOCCAL VACCINE 65+ 12/22/1961 YRS (1 - PCV) DTAP/TDAP VACCINES (1 - 12/22/1973 Tdap) HEPATITIS C SCREENING 12/22/1973 PHYSICAL (COMPREHENSIVE) 12/22/1973 EXAM COLORECTAL CANCER 12/22/2000 SCREENING SHINGLES RECOMBINANT 12/22/2005 VACCINE (1 of 2) ABDOMINAL AORTIC ANEURYSM 12/22/2020 SCREENING COVID-19 VACCINE (5 - 03/06/2022 01/09/2022, Booster) 06/21/2021, 09/25/2020, Additional history exists ADVANCED CARE PLANNING 08/03/2022 DISCUSSION AND DOCUMENTATION DEPRESSION SCREENING 08/03/2022 INFLUENZA VACCINE (Season 05/03/2023 Ended) Results Not on filefrom Last 3 Months Insurance Type Payer Benefit Subscriber ID Effective Phone Address Plan / Dates Group Medicare MEDICARE MEDICARE [id number] 2020-P [phone] [address] [place] [address] AETNA AETNA [id number] 2020-P [address] [address] [place] [phone] Advance Directives Date Inactivated Comments Code Status Date Activated 06/02/2015 1:54 PM Full Code 05/31/2015 8:00 PM Comments Question Answer Provider has Yes discussed Code Status w/Patient or Family? Care Teams Start Date End Date Fig Bar Machine Operator Relationship Specialty 05/31/15 Tasha Nicolas MD PCP - General Family [address] [place] [address] 06/01/15 Luzma Mendoza RN
--- OUTSIDE RECORDS SUMMARY | 2022-12-02 16:07 | XMS REPORT | Encounter Summary ---
Author Author [facility] Organization [facility] Address Unknown Phone Unavailable Care Team Providers Care Digital Campaign Specialist Name Role Phone Tasha Nicolas MD PCP Luzma Mendoza RN Unavailable Unavailable Reason for Visit * Reason Onset Date Comments Follow-up Phone Call 11/06/2022 Procedure set up Encounter Details Care Team Description Date Type Department Camden Padilla MD [address] [facility] [id number] [place] [address] Follow-up Phone Call (Procedure set up ) 11/06/2022 Telephone Cardiology: [facility] [address] [facility], [address] [place] [address] Social History Date Tobacco Use [...] encounter Miscellaneous Notes * Telephone Encounter - Marina Cervantes RN - 11/06/2022 1:45 PM CDT Spoke with patient's spouse Steph, who said patient became ill today and went int o cardiac arrest. State pt was flown to [facility] and is on the ve ntilator. States she will call our team with updates on patients status. Will de nadia setting up [facility] at this time. * Telephone Encounter - Marina Cervantes RN - 11/06/2022 11:16 AM CDT Called patient to set up [facility] w/ [facility]. LVM. documented in this encounter Plan of Treatment Not on filedocumented as of this encounter Visit Diagnoses Not on filedocumented in this encounter Care Teams Start Date End Date Digital Campaign Specialist Relationship Specialty 05/31/15 Tasha Nicolas MD PCP - General [address] [address] 06/01/15 Luzma Mendoza RN documented as of this encounter
--- OUTSIDE RECORDS SUMMARY | 2022-12-02 16:07 | XMS REPORT | Encounter Summary ---
Author Author [facility] Organization [facility] Address Unknown Phone Unavailable Care Team Providers Care Final Inspector Paper Name Role Phone Tasha Nicolas MD PCP Luzma Mendoza RN Unavailable Unavailable Reason for Visit * Consult, Test & Treat (Routine) - Pending Review Diagnoses / Procedures Referred By Contact Referred To Conta ct Specialty Nehal Paiz MD [address] [place] [address] Referral ID Status Reason Start Date Expiration Visits Vi sits Date Requested Authorized [id number] Pending 09/24/2022 09/24/2023 1 1 Review Encounter Details Care Team Description Date Type Department Camden Padilla MD [address] [place] [address] 10/24/2022 Office Visit Cardiovascular Med[facility]: [place] [facility] [address] [place] [address] Social History Date Tobacco Use Types Packs/Day [...] have Coronavirus/COVID-19? documented as of this encounter Last Filed Vital Signs Reading Time Taken Comments Vital Sign 153/74 10/24/2022 1:53 PM CDT Blood Pressure 68 10/24/2022 1:53 PM CDT Pulse 36.4 C (97.6 F) 10/24/2022 1:53 PM CDT Temperature - - Respiratory Rate - - Oxygen Saturation - - Inhaled Oxygen Concentration 95.2 kg (209 lb 12.8 oz) 10/24/2022 1:53 PM CDT Weight - - Height 29.27 06/01/2015 1:12 PM CDT Body Mass Index documented in this encounter Functional Status Date of Assessment [...] impairment: No documented as of this encounter Progress Notes * Camden Padilla MD - 10/24/2022 1:30 PM CDT Date of Service: 10/24/2022 Edward Garcia is a 66 y.o. male. HPI I had the pleasure of seeing your patient Edward Garcia as a part of the [facility] at [facility] in [place] today for in itial Electrophysiolgy Consultation regarding his Paroxysmal Atrial Fibrillation with RVR. He is typically followed and was referred by my colleague Dr. Dao Carty, his pr imary foundry tender here in [facility]. Mr. Gacria is an exceptionally pleasant 66 y.o. male All data in this note, including the past medical history, was newly collected today. His PMHx briefly includes: Paroxysmal Atrial Fibrillation with RVR; CTI Depende nt Typical Atrial Flutter--> S/P CTI AFL RFA Presenting in AFL (06/01/2015); Tachycardia Induced Cardiomyopathy; COPD; OSAS-noncompliant with CPAP; Alcohol Abuse (Quit 08/2022); Tobacco Abuse (Quit 08/2022); Cardiac Catheterization with Nonobstructive CAD ([address] Carty) He has a [id number] score of 2: Age>65; CM To Review Detailed Updated PMHx see below the ASSESSMENT AND PLAN section of thi s note. His HPI for today is discussed in greater detail as a part of the Assessment and Plan below. FHx, SHx and ROS documented and I have reviewed. Most pertinent ROS is included /discussed throughout the note, e.g. HPI and A/P. ASSESSMENT AND PLAN: -- Paroxysmal Atrial Fibrillation with RVR (09/2022) -- Atrial Flutter--> S/P CTI AFL RFA (06/01/2015) -- Tachycardia Induced Cardiomyopathy -- COPD -- OSAS-noncompliant with CPAP, uses Nocturnal O2 -- Alcohol Abuse (Quit 08/2022) -- Tobacco Abuse (Quit 08/2022) Mr. Garcia, as noted above, presenting with rapid A-fib September 2022 to [facility]. Ultimately sinus rhythm was restored. Given the difficulty with rate control and the fact that he is currently on amio darone Dr. Carty referred him for EP consultation and possible AFIB Ablation. He denies any recurrent AFIB. Of asked him to check his pulse through his watch and by feeling his pulse on a daily basis. We had a lengthy discussion regarding Atrial Fibrillation, the pathophysiology, the mechanism, and therapeutic options. We discussed what I call the 3 R's: The Rhythm being abnormal; the Rate being Rapid; and the Risk of stroke. Regarding Rhythm--Dr. Carty had a difficult time converting his AFIB plus he nichols d rapid ventricular rates despite intervention. He also had relative hypotensio n. Ultimately he initiated Mr. Garcia on amiodarone and he was able to restore and maintain sinus rhythm. This was as of September. He currently remains on Amiodarone 400 mg daily. He appears to be maintaining sinus rhythm. We will decrease his Amiodarone to 200 mg daily starting November 01 Recent echo suggest that his LA size is normal although the DARSHANA a month ago sugvicente gibbonsd his LA was significantly enlarged. We discussed rhythm-control strategies to include continuing to take Amiodarone at least for another 4-6 months at which point I would either pursue AFIB ablati on or discontinue it, let it wash out, initiate alternative antiarrhythmic drug therapy such as sotalol or Tikosyn. If Sotalol were to be used the target dose should be at least 120 mg twice daily . Alternatively pursuing an AFIB Ablation would be the other option at which point would likely discontinue his amiodarone 2 weeks before the procedure for at arden st some "washout." He was interested in hearing more about and pursuing an AFIB Ablation. We discussed that the 5 year cure rate of the procedure for him is approximately 80% if his LA size is normal which the last echo suggested, and to achieve that rate sometimes require a second redo or touchup procedure. We also discussed that the incidence of needing a repeat procedure is generally approximately 20%-30%. We discussed the procedure and risks of an AFIB Ablation procedure to include, b ut not limited to: , AK, stroke, cardiac perforation, pulmonary vein steno sis, diaphragmatic paralysis via phrenic nerve injury, catheter entrapment in th e mitral valve or other location, bleeding, infection, DVT, vascular injury, or worsening atrial arrhythmias. There is also a low risk of possible vagal nerve i njury, esophageal ulceration, atrial esophageal fistula, atrial bronchial fistul a, or even possible need for major surgery to address one of these complications . We discussed the procedure is done under general anesthesia. We discussed that recurrent AFIB in the first 2-3 months post procedure is a par t of the healing process, and has no impact on the overall longer term success o f the ablation. Therefore, we use an Antiarrhythmic Drug for the first 3 months post-procedure i n an effort to reduce the incidence of these events. We again, also discussed the possible need for a repeat AFIB Ablation procedure. The incidence of needing a repeat procedure is generally approximately 20%-30%. Finally, we discussed the differences between an RFA vs Cryo-Ablation. I recomme nded we do a Cryo-Ablation. He expressed a verbal understanding of these details, the procedure, and the ris ks. After extensive discussion, He WISHES TO PURSUE an AFIB CRYO-ABLATION. Therefore, we will: -- Obtain a CT Angiogram to assess his PV anatomy, and proceed accordingly. NOTE-- the CT angiogram will be done here in [facility]. -- Hold his current Amiodarone antiarrhythmic drug therapy 2 WEEKS before the pr ocedure -- Continue with his AV jose daniel suppressing drug therapy, including the morning of the procedure. (That is not hold it) -- Obtain a DARSHANA prior to the procedure. -- Do the procedure under General Anesthesia. -- The patient was/will be initiated on Protonix one week before the procedure a nd should be continued, including the morning of the procedure -- Hold Eliquis the morning of the procedure and take the last dose no later bri n 6:00 PM the night before. -- Immediately post-procedure, he will reinitiate Anticoagulation Tx with Eliqui s. -- Post-ablation, he will continue to let the Amiodarone wash out of his system. Regarding Rate--as noted he is on amiodarone which contributes to ventricular ra te control, he is also on diltiazem to 40 mg daily and digoxin 0.25 mg daily. N ew A digoxin level apparently is pending. It is critical to follow that up especia lly since he is on amiodarone which interacts with the junction increase the lev el. Obviously he will be off amiodarone post procedure Regarding Risk of Stroke--interestingly, as noted he has a [id number] Score of 2 . He is currently on Eliquis 5 mg twice daily. Denies any bleeding issues. Denies any blood in the urine or blood in the stool . -- Since he is on anticoagulation, I have asked him to monitor for any signs or symptoms of bleeding, including blood in the stool or urine, etc and to contact his PMD if any occurs. We discussed the association between obstructive sleep apnea and AFIB and that i nadequately Tx'd sleep apnea will increase the risk of recurrent AFIB and make c ontrolling the AFIB much more difficult. Thus I emphasized the need to be stric tly compliant with his CPAP, etc. And asked him to discuss with his PMD reassess ing his CPAP settings if it hadn't been done over the last year. See additional plan details below. PLAN: -- 2 AFIB ablation with details described above including CTA, etc. --See comments regarding sleep apnea above -- Since he is on anticoagulation, I have asked him to monitor for any signs or symptoms of bleeding, including blood in the stool or urine, etc and to contact his PMD if any occurs -- I have asked him to check his pulse once daily for irregularity and/or rapidi ty and contact our office if it occurs and persists. I have asked him to keep a log including date, once a day HR, regular or irregular--elaborating on skipped beat or AFIB. If they have an Apple Watch or [employer] Mobile device, I have also a sked them to check once a day to confirm their rhythm. Total Time Today was 73 minutes in the following activities: Preparing to see th e patient, Obtaining and/or reviewing separately obtained history, Performing a medically appropriate examination and/or evaluation, Counseling and educating th e patient/family/caregiver, Ordering medications, tests, or procedures, Referrin g and communication with other health patient care (when not separately re ported) and Documenting clinical information in the electronic or other health r ecord Mr. Garcia was educated regarding plan of care. He was instructed to call our o ffice with any questions or concerns, as well as to notify us of any new or wors ening symptoms. He verbalized understanding. I appreciate the opportunity to participate in the care of your patient. Please do not hesitate to contact me directly if you have any questions or furth er insights into his care. DETAILED UPDATED PMHx: -- 05/22/2015: Cardiac Catheterization by Dr. Owens: No significant CAD -- 05/31/2015: Documentation Encounter (Dr. Padilla): I received a call from Dr. Carty today. We will be transferring the patient to [facility] for further Tx. He was just Dx'd with AFL, incidentally during PMD exam. Admitted and Dr. Carty doc umented an echo with severe LV dysfunction thought Tachycardia induced. He did a CARDIAC CATHETERIZATION which showed nonobstructive disease. He was rate contr olled and cardioverted and sent home for future EP referral to me, Dr. Padilla. Ho wever he was readmitted with recurrent AFL with rapid 2:1 conduction. He has tr ied to achieve rate control, however, he is having difficulty with resultant hyp otension. He inquired re: Possible more "urgent" AFL RFA. After our discussion, I recommended he Transfer the pt to [facility] for probable AFL RFA tomorrow. -- 06/01/2015: He had successful CTI AFL RFA when he presented to [facility] and was in persistent atrial flutter. Dr. Padilla did a EP study confirming th at it was a Right-sided counterclockwise cavotricuspid isthmus atrial flutter ci rcuit. RF ablation terminated the atrial flutter. RF was completed through the substation isthmus creating bidirectional block. -- 08/14/2022: CT Chest: Right lower lobe mass present for the past 5 yearsand showed minimal increased size from 2017, likely with a partial calcification con sistent with benign behavior and requiring no further dedicated workup. COPD and coronary artery atherosclerotic calcifications, chronic. No pneumonia, failure or acute abnormality. -- 09/15/2022: ADMIT TO [place], [place] for AFIB with RVR - underwent cardiove rsion after DARSHANA was carried out, which was initially successful after 3 attempts - however, he converted back to a-fib with RVR and was then started on amiodaro ne by Dr. Paiz -- 09/16/2022: DARSHANA + DCCV: ([place] [facility]) - DARSHANA: Dilated LA and KRISTINE, no clot or thrombus was seen. Dilated RA. Patient was tachycardiac, systolic function appeared to be in the lower normal limit wh ich could be underestimated due to the tachycardia. Mild MVR. Mild TVR. - DCCV: DC cardioversion was successful in terminating AF, patient could not m aintain SR and went back into AF. Patient will be loaded with Amiodarone bolus and a drip and planning to attempt another cardioversion later today. -- 09/18/2022: Documentation Encounter (Dr. Padilla): I received a phone call fro marisela Paiz today. the patient presented to [facility] in [facility] in asymptomatic AFIB with RVR with rates in the 160 bpm range on 09/15/22 Dr. Paiz had difficul ty with rate control despite diltiazem. His SBPs are running in the 99 mmHg ran ge. He added digoxin. He also added IV amiodarone and a 24-hour amiodarone drip . Initiate the patient on amiodarone 400 mg twice daily. He attempted cardiove rsion. The patient's rate briefly slowed but he did not restore sinus. After a dditional amiodarone he planned to attempt repeat cardioversion however the eloise ent was in sinus rhythm but then went back in atrial fibrillation. Therefore, a ppropriately, repeat cardioversion was not performed at that time. The patient w ill be discharged home on amiodarone 400 mg twice daily. He will undergo 7 days of monitoring to see if he is having intermittent AFIB or persistent. Dr. Paiz did a DARSHANA prior to the initial cardioversion confirming that his EF at least at this time is still normal. If after 1 week his AFIB is intermittent and hopeful ly the amiodarone will better control it. If his A-fib is persistent then I will undergo repeat cardioversion. If his rhythm is difficult to control and he cont inues to have RVR with relative hypotension then he will potentially need to be admitted to [facility] and undergo more urgent AFIB Ablation. -- 10/01/22: ECG with NSR -- 10/09/2022: ECHO: ([place] [facility]) LV cavity s ize is normal. There is mild concentric LVH. LV systolic function is normal. EF ~ 60-65%. There were no regional wall motion abnormalities identified. Repo rtedly Normal LA Size Vitals: 10/24/22 1353 BP: (!) 153/74 Pulse: 68 Temp: 36.4 C (97.6 F) Weight: 95.2 kg (209 lb 12.8 oz) Body mass index is 29.27 kg/m. Past Medical History Patient Active Problem List Diagnosis Date Noted Atrial fibrillation (HCC) 10/18/2022 Per OV note on 10/01/[address] Dao Carty ([place] [facility]) 09/16/2022 - DARSHANA + DCCV: ([facility]) - DARSHANA: Dilated LA and KRISTINE, no clot or thrombus was seen. Dilated RA. Patient was tachycardiac, systolic function appeared to be in the lower normal limit wh ich could be underestimated due to the tachycardia. Mild MVR. Mild TVR. - DCCV: DC cardioversion was successful in terminating AF, patient could not m aintain SR and went back into AF. Patient will be loaded with Amiodarone bolus and a drip and planning to attempt another cardioversion later today. 09/16/2022 - DCCV: ([facility]) Successful elec trical cardioversion after 3 attempts. COPD (chronic obstructive pulmonary disease) (HCC) 10/18/2022 Per OV note on 10/01/[address] Dao Carty ([facility]) DELIA (obstructive sleep apnea) 10/18/2022 Per OV note on 10/01/[address] Dao Carty ([place] [facility]) NICM (nonischemic cardiomyopathy) ([facility]) 06/01/2015 10/09/2022 - ECHO: ([place] [facility]) LV cavity s ize is normal. There is mild concentric LVH. LV systolic function is normal. EF ~ 60-65%. There were no regional wall motion abnormalities identified. Alcohol use 06/01/2015 Tobacco use disorder 06/01/2015 Atrial flutter (HCC) 05/31/2015 Review of Systems All other systems reviewed and are negative. Physical Exam Constitutional: He is in no acute distress, resting comfortably. Skin/Integument: Warm and dry. Eyes: PERRL, sclera are non-icteric and no xanthelasmas noted. ENT: Hearing is intact. Heme/Lym/Immun: Supple neck, without thyromegaly. Respiratory-Pulmonary/Chest: Effort normal and breath sounds normal. No respira tory distress or accessory muscle use. No obvious tracheal deviation. Clear to auscultation bilaterally. Cardiovascular: No evidence of increased jugular venous pressure, carotids are 2+/4+ equal bilaterally. Regular rhythm, S1, S2. I-2/6 systolic murmur HBA the left sternal border. No heaves, thrills or rubs. Musc/Skeletal-Extremities: Without significant peripheral edema. With what appe ars to be full ROM. Neuro: Patient is alert and oriented to person, place, and time. Psych: Patient does not appear anxious, he appears appropriate, with normal non -pressured speech and what appears to be appropriate judgement Cardiovascular Studies ECG today documents NSR at 60 bpm with significant baseline noise, RSR prime in V1, with no preexcitation left axis deviation. Cardiovascular Health Factors Vitals BP Readings from Last 3 Encounters: 10/24/22 (!) 153/74 06/02/15 111/66 Wt Readings from Last 3 Encounters: 10/24/22 95.2 kg (209 lb 12.8 oz) 06/02/15 87.5 kg (193 lb) BMI Readings from Last 3 Encounters: 10/24/22 29.27 kg/m 06/02/15 26.93 kg/m Smoking Social History Tobacco Use Smoking Status Former Packs/day: 1.00 Years: 20.00 Pack years: 20.00 Types: Cigarettes Quit date: 04/30/2015 Years since quittin.4 Smokeless Tobacco Not on file Lipid Profile Cholesterol Date Value Ref Range Status 05/31/2015 148 <200 MG/DL Final HDL Date Value Ref Range Status 05/31/2015 27 (L) >40 MG/DL Final LDL Date Value Ref Range Status 05/31/2015 85 <100 MG/DL Final Triglycerides Date Value Ref Range Status 05/31/2015 224 (H) <150 MG/DL Final Blood Sugar Hemoglobin A1C Date Value Ref Range Status 05/31/2015 5.8 4.0 - 6.0 % Final Comment: The ADA recommends that most patients with type 1 and type 2 diabetes maintain an A1c level <7%. Glucose Date Value Ref Range Status 06/02/2015 86 70 - 100 MG/DL Final 05/31/2015 86 70 - 100 MG/DL Final Problems Addressed Today No diagnosis found. Current Medications (including today's revisions) albuterol (VENTOLIN HFA, PROAIR HFA) 90 mcg/actuation inhaler Inhale 2 Puffs by mouth every 6 hours as needed for Wheezing. albuterol-ipratropium (DUONEB) 0.5 mg-3 mg(2.5 mg base)/3 mL nebulizer solut ion Inhale 3 mL solution as directed every 4 hours as needed for Wheezing. allopurinol (ZYLOPRIM) 100 mg tablet Take 100 mg by mouth twice daily. colchicine 0.6 mg tablet Take 1.2 mg by mouth as Needed. furosemide (LASIX) 40 mg tablet Take 40 mg by mouth twice daily. lisinopril (PRINIVIL, ZESTRIL) 2.5 mg tablet Take 2.5 mg by mouth daily. metoprolol (LOPRESSOR) 25 mg tablet Take 1 Tab by mouth twice daily. documented in this encounter Miscellaneous Notes * Patient Instructions - Jana Gilbert RN - 10/24/2022 1:30 PM CDT We will be calling you to schedule an atrial fibrillation ablation. -- Since you are on anticoagulation, monitor for any signs or symptoms of bleedi ng, including blood in the stool or urine, etc and to contact your Primary Care Physician if any occurs. I would like you to check your pulse daily to ensure it is not irregular or rapi d and contact our office either occurs and persists. Also keep a log of your heart rates(HR) and note if your pulse is regular(R) or irregular(I) and bring that log with you during each office visit. If you have a n Apple Watch, I would also like you to check once a day to confirm your rhythm. In order to provide you the best care possible we ask that you follow up as kris montalvo: For NON-URGENT questions please contact us through your [employer] account. For all medication refills please contact your pharmacy or send a request staci Rubio. For all questions that may need to be addressed urgently please call the nursing triage line at [phone] Thursday - Thursday 8-5 only. Please leave a detailed m essage with your name, date of , and reason for your call. To schedule an appointment call [phone]. Please allow 10-15 business days for the results of any testing to be reviewed. Please call our office if you have not heard from a nurse within this time frame . documented in this encounter Plan of Treatment Not on filedocumented as of this encounter Visit Diagnoses Diagnosis Atrial fibrillation, unspecified type ( HCC) - Primary DELIA (obstructive sleep apnea) Obstructive sleep apnea (adult) (pediat cecilia) documented in this encounter Historical Medications * This list may reflect changes made after this encounter. Start Date End Date Medication Sig Dispensed Refills OXYGEN-AIR DELIVERY Use as 0 SYSTEMS MISC directed. 3ltr o2 per nc at noc Ascorbic Take by 0 Szyk-Gegeepwsy-Mge mouth. (EMERGEN-C) 1,000 mg pwep apixaban (ELIQUIS) 5 mg Take two 0 tablet tablets by mouth twice daily. diltiazem CD (CARDIZEM Take one 0 CD) 240 mg capsule capsule by mouth daily. digoxin (LANOXIN) 250 mcg Take one 0 (0.25 mg) tablet tablet by mouth daily. amiodarone (CORDARONE) Take two 0 200 mg tablet tablets by mouth daily. Take with food. added in this encounter Care Teams Start Date End Date Final Inspector Paper Relationship Specialty 05/31/15 Tasha Nicolas MD PCP - General Family [address] [place] [id number] 06/01/15 Luzma Mendoza RN documented as of this encounter
--- OUTSIDE RECORDS SUMMARY | 2022-12-02 16:07 | XMS REPORT | Encounter Summary ---
Author Author [facility] Organization [facility] Address Unknown Phone Unavailable Care Team Providers Care Transitions Manager Rn Name Role Phone Tasha Nicolas MD PCP Luzma Mendoza RN Unavailable Unavailable Reason for Visit * Reason Comments New Patient Records Request Encounter Details Care Team Description Date Type Department Lashaun Cavazos RN New Patient; Records Request 10/18/2022 Patient Profile Cardiology: [facility] [address] [place] [address] Social History Date Tobacco Use Types Packs/Day Years Used Quit: 04/30/2015 Smoking Tobacco: Former Cigarettes 1 20 Tobacco Cessation: Counseling Given: Not Answered Comments Alcohol Use Standard Drinks/Week Yes 17 (1 standard drink = 0.6 oz pure alcohol) Sex Assigned at Date Recorded Not on file documented as of this encounter Functional Status [...] Diagnosis Atrial fibrillation, unspecified type ( HCC) NICM (nonischemic cardiomyopathy) (HCC) Other primary cardiomyopathies Chronic obstructive pulmonary disease, unspecified COPD type (HCC) DELIA (obstructive sleep apnea) Obstructive sleep apnea (adult) (pediat cecilia) documented in this encounter Care Teams Start Date End Date Transitions Manager Rn Relationship Specialty 05/31/15 Tasha Nicolas MD PCP - General Family [address] [place] [address] 06/01/15 Luzma Mendoza RN documented as of this encounter
--- OUTSIDE RECORDS SUMMARY | 2022-12-02 16:08 | XMS REPORT | Clinical Summary ---
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 Name Role Phone PCP Unavailable Allergies Not on File Medications Not on file Active Problems Not on file Encounters Care Team Description Date Type Department [place], Interface Unk Provider 11/06/2022 [facility] [place], [place] Unk Provider 11/06/2022 [facility] [place], Interface Un Provider 11/06/2022 [facility] [place], Interface Unk Provider 11/06/2022 [facility] from Last 3 Months Social History Date Tobacco Use Types Packs/Day Years Used Smoking Tobacco: Never Assessed Date Recorded Sex and Gender Information Value Sex Assigned at Not on file Gender Identity Not on file Sexual Orientation Not on file Last Filed Vital Signs Not on file Plan of Treatment Not on file Procedures Comments Procedure Name Priority Date/Time Associated Diag nosis POWERSHARE OUTSIDE IMAGES Routine 11/06/2022 FOR PACS 5:34 PM CDT POWERSHARE OUTSIDE IMAGES Routine 11/06/2022 FOR PACS 5:34 PM CDT POWERSHARE OUTSIDE IMAGES Routine 11/06/2022 FOR PACS 5:34 PM CDT POWERSHARE OUTSIDE IMAGES Routine 11/06/2022 FOR PACS 5:34 PM CDT from Last 3 Months Results Not on filefrom Last 3 Months
[2022-12-02] MEDS ORDERED: ALBU18HF2 INH (16:13)
[2022-12-02] MEDS ORDERED: AMIO200T65 PO (16:13)
[2022-12-02] MEDS ORDERED: HYDR-3820 PO (16:13)
[2022-12-02] MEDS ORDERED: THIA100T80 PO (16:13)
[2022-12-02] MEDS ORDERED: APIX5TAB PO (16:13)
[2022-12-02] MEDS ORDERED: TIOT4MIS3 IH (16:13)
[2022-12-02] MEDS ORDERED: FOLI1TAB33 PO (16:13)
[2022-12-02] MEDS ORDERED: MTP25TSR PO (16:13)
--- NOTE | 2022-12-02 17:22 | PM&R Post Admission Assessment ---
PM&R HP Date of Visit: December 02, 2022 Time of Visit: 18:00 History of Present Illness CC: Debility following cardiac arrest 11/06/22 HPI: This is a 66yoWM clinic patient of Dr Nicolas who has h/o COPD and DELIA who presents following [facility] admit on 11/06/22 following a cardiac arrest. (ER HPI by Dr Jay on 11/06/22: 66-year-old male with above history coming in due to respiratory issues. His oxygen saturation was in the high 90s on the 5 L on arrival. Given his history of COPD, oxygen turned down to roughly 3 L with a goal around 90 to 92% oxygen saturation. He was wheezing and did have some minimal crackles on exam, slightly increased work of breathing, but did appear similar to when I have had him as a patient in the past. He had very trace lower extremity edema with no clinical signs of a DVT. COPD management started with an IV placed, basic labs obtained, ceftriaxone and doxycycline ordered as well as steroids. 20 mg of IV Lasix also ordered to help with any fluid he potentially has around his lungs. I was then called to the room shortly after this, patient stating he is not feeling well, at this point he was tripoding, breathing rapidly, when I listen to his lungs he was not moving a lot of air. Immediately went to grab BiPAP, by the time the BiPAP machine was in the room, less than 15 seconds from this initial evaluation, the patient was unresponsive. ACLS was then initiated, the patient was intubated. ET tube had an air leak, balloon malfunction, it was replaced. Highest on my differential would be severe COPD exacerbation versus anaphylaxis from the ceftriaxone (it was running when this event occurred) versus PE. Patient significantly improved with inline DuoNeb with his ventilator pointing more towards COPD. I did a lwzpy-gi-slui ultrasound at that time, I was not seeing any concerns for pneumothorax, he had good lung sliding bilaterally. CTA chest obtained showing no pulmonary embolus, no obvious opacities, no pneumothorax. No sedation has been given since shortly after his most recent ROSC, I am concerned with his mental status. Pupils are 4 mm and very sluggish. Patient initially with no responses other than a gag reflex. On reassessment, the patient opened his eyes spontaneously, and was moving all 4 extremities spontaneously. Pupils were still sluggish. His initial blood gas was 6.99 with improvement to around 7.2. We did titrate his ventilator to help get rid of more CO2. Contacted multiple facilities for transfer given likely need for neurology as well as pulmonology which we do not have at our facility. The patient was accepted to [facility] by Dr. Dallas). He had left sided PTX requiring a chest tube and remained with SQ emphysema on the left side with wound vac to the left chest wall wound. He has a h/o AF and HTN. He is most concerned about his lack of ability in ambulation. Past Nulsqst-Lwxmwx-Iovoyt Hx Past Med/Social Hx: Reviewed Nursing Past Med/Soc Hx, Reviewed and Corrections made Patient Social History Marrital Status: Employed/Student: retired Alcohol Use: Regular Use Alcohol Beverage of Choice: [place] Smoking Status: Former Smoker Type Used: Cigarettes 2nd Hand Smoke Exposure: No Recent Hopitalizations: No Immunizations Up To Date Tetanus Booster (TDap): Less than 5yrs Date of Pneumonia Vaccine: May 25, 2015 Date of Influenza Vaccine: May 25, 2015 Seasonal Allergies Seasonal Allergies: No Past Medical History Surgeries: Cardiac, Orthopedic Respiratory: COPD, Sleep Apnea Currently Using CPAP: No (DOESN'T WEAR) Cardiac: Atrial Fibrillation, Hypertension Reproductive: No Sexually Transmitted Disease: No HIV/AIDS: No Musculoskeletal: Gout Loss of Vision: Denies History of Blood Disorders: No Adverse Reaction to Blood Guillermo: No Family History Cardiovascular disease G8 BROTHER Hypertension G8 BROTHER Heart Disease, Diabetes, Hypertension PM&R Allergy/Meds/Data Review Allergies Coded Allergies: NATALY Inhibitors (Verified Allergy, Unknown, 08/12/19) angioedema Home Medications Scheduled Albuterol Sulfate (Ventolin Hfa), 2 PUFF INH BID, (Reported) Amiodarone HCl (Amiodarone HCl), 200 MG PO DAILY, (Reported) Apixaban (Eliquis), 5 MG PO BID, (Reported) Folic Acid (Folic Acid), 1 MG PO DAILY, (Reported) Metoprolol Succinate (Metoprolol Succinate), 25 MG PO DAILY, (Reported) Thiamine HCl (Vitamin B-1), 100 MG PO DAILY, (Reported) Tiotropium Br/Olodaterol HCl (Stiolto Respimat Inhal Hunter), 2 PUFF IH DAILY, (Reported) Scheduled PRN Albuterol Sulfate (Ventolin Hfa), 2 PUFF INH Q4H PRN for SHORTNESS OF BREATH, (Reported) Albuterol Sulfate (Albuterol Sulfate), 2.5 MG INH Q6H PRN for SHORTNESS OF BREATH, (Reported) Hydrocodone/Acetaminophen (Hydrocodone-Acetamin 10-325 mg), 1 EACH PO Q4H PRN for PAIN-MODERATE (5-7), (Reported) Discontinued Medications Amiodarone HCl (Amiodarone HCl), 200 MG PO UD Discontinued Reason: No Longer Taking Apixaban (Eliquis), 5 MG PO BID, (Reported) Discontinued Reason: No Longer Taking Apixaban (Eliquis), 5 MG PO BID Discontinued Reason: No Longer Taking Ascorbic Acid/Multivit-Min (Emergen-C 1,000 mg Packet), 1,000 MG PO DAILY, (Reported) Discontinued Reason: No Longer Taking Digoxin (Digoxin), 250 MCG PO 1800, (Reported) Discontinued Reason: No Longer Taking Diltiazem HCl (Diltiazem 24Hr ER), 240 MG PO DAILY Discontinued Reason: No Longer Taking Prednisone (Prednisone), MG PO DAILY, (Reported) Discontinued Reason: No Longer Taking Current Medications Current Medications Reviewed Review of Systems Constitutional: see HPI, malaise, weakness EENTM: no symptoms reported Respiratory: dyspnea on exertion, short of breath, wheezing Cardiovascular: edema Gastrointestinal: no symptoms reported Genitourinary: no symptoms reported Musculoskeletal: back pain, joint pain Skin: no symptoms reported Psychiatric/Neurological: Anxiety, Depressed All Other Systems Reviewed Negative Unless Noted: Yes Physical Exam Physical Exam Vital Signs Capillary Refill : Height, Weight, BMI Height: 5'10.00" Weight: 211lbs. 3.0oz. [id number]; 29.00 BMI Method:Stated General Appearance: No Apparent Distress, WD/WN, Chronically ill Eyes: Bilateral Eye Normal Inspection, Bilateral Eye PERRL HEENT: PERRL/EOMI, Normal ENT Inspection, Pharynx Normal Neck: Full Range of Motion, Normal Inspection, Non Tender, Supple, Carotid Bruit Respiratory: Chest Non Tender, No Accessory Muscle Use, No Respiratory Distress, Crackles, Decreased Breath Sounds, Wheezing Cardiovascular: Regular Rate, Rhythm, No Gallop, No JVD, No Murmur, Normal Peripheral Pulses Gastrointestinal: Normal Bowel Sounds, No Organomegaly, No Pulsatile Mass, Non Tender, Soft Back: Normal Inspection, No CVA Tenderness, No Vertebral Tenderness Extremity: Normal Capillary Refill, Normal Inspection, Normal Range of Motion, Non Tender, No Calf Tenderness, Pedal Edema Neurologic/Psychiatric: Alert, Oriented x3, Normal Mood/Affect, type bar 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 segment assembler II-XII Norm as Tested, Abnormal Gait, Motor Weakness (generalized) Skin: Normal Color, Warm/Dry Lymphatic: No Adenopathy PM&R Medical Assessment & Plan REHAB/MEDICAL ASSESSMENT AND PLAN: REHAB IMPAIRMENT GROUP: Debility following cardiac arrest with left sided PTX ETIOLOGIC DIAGNOSIS: Debility following cardiac arrest with left sided PTX The comorbidities that impact the patients function and/or functional outcome by: SQ emphysema left side, severe debility, unable to ambulate, AF REHAB PLAN: The patient is being admitted to our comprehensive inpatient rehabilitation facility and can tolerate the intensity of service consisting of at least: 180 minutes of therapy a day, 5 out of 7 days a week Rehab treatment will consist of: PT OT will focus on regaining baseline strength and ambulation in order to return back home to spouse with use of AD The patient/family has a good understanding of our discharge process and will benefit from an interdisciplinary inpatient rehabilitation program. The patient has potential to make improvement and is in need of at least two of the following multidisciplinary therapies including but not limited to physical, occupational, speech, and prosthetics and orthotics. Additionally the patient will need services from respiratory, nutritional services, wound care, psychology, etc. (Customize this to each patient). Given the patients complex condition and risk of further medical complications, rehabilitation services cannot be safely or effectively provided at a lower level of care such as a shelter facility. BARRIERS TO DISCHARGE: Weakness ESTIMATED LOS: 7 days DISPOSITION: Home RELEVANT CHANGES SINCE PREADMISSION SCREENING: I have compared the patients medical and functional status at the time of the preadmission screening and there are: no changes PROGNOSIS: Good REHABILITATION GOALS: 1. PT OT will focus on regaining baseline strength and ambulation in order to return back home to spouse with use of AD All the above goals were reviewed with the patient and he/she is in agreement. By signing this document, I acknowledge that I have personally performed a full physical examination on this patient within 24 hours of admission to this inpatient rehabilitation facility and have determined the patient to be able to tolerate the above course of treatment at an intensive level for a reasonable period of time. I will be completing a detailed individualized Plan of Care for this patient by day #4 of the patients stay based upon the Preadmission Screen, the Post-Admission Evaluation, and the therapy evaluations. Admission Dx/Comorbidities: (1) Respiratory failure Status: Acute ICD Codes: J96.90 - Respiratory failure, unspecified, unspecified whether with hypoxia or hypercapnia Assessment/Plan Assessment and Plan Assess & Plan/Chief Complaint Assessment: Debility following cardiac arrest 11/06/22 Left sided PTX s/p chest tube now residual SQ emphysema AF HTN HLP COPD DELIA non-compliant with CPAP Plan: PT OT Home meds Monitor closely TABATHA JOHNSON DO December 02, 2022 17:22
[2022-12-02] MEDS ORDERED: LOPERAMIDE 2 MG (IMODIUM) TABLET PO PRN (17:30)
[2022-12-02] MEDS ORDERED: ALPRAZolam 0.25 MG (XANAX) TAB PO PRN (17:30)
[2022-12-02] MEDS ORDERED: BISACODYL 10 MG SUPP (DULCOLAX) PR PRN (17:30)
[2022-12-02] MEDS ORDERED: diphenhydrAMINE 25 MG TAB (BENADRYL) PO PRN (17:30)
[2022-12-02] MEDS ORDERED: CALCIUM CARBONATE 500 MG (TUMS) TAB.CHEW PO PRN (17:30)
[2022-12-02] MEDS ORDERED: guaiFENesin/CODEINE (ROBITUSSIN AC) 10ML UDC PO PRN (17:30)
[2022-12-02] MEDS ORDERED: ONDANSETRON 4 MG (ZOFRAN) ORAL DISSOLVE TAB PO PRN (17:30)
[2022-12-02] MEDS ORDERED: DOCUSATE SODIUM 100 MG (COLACE) CAP PO PRN (17:30)
[2022-12-02] MEDS ORDERED: MELATONIN 3 MG TABLET PO PRN (17:30)
[2022-12-02] MEDS ORDERED: FLEET ENEMA ADULT 1 EA BTL PR PRN (17:30)
[2022-12-02] MEDS ORDERED: RT-ALBUTEROL SULF 2.5 MG/3 ML PRE-MIX VIAL INH PRN ×2 (17:30)
[2022-12-02] MEDS ORDERED: LACTULOSE SYRUP 10GM/15ML (ENULOSE) 30ML UDC PO PRN (17:30)
[2022-12-02] MEDS ORDERED: ACETAMINOPHEN 325 MG TABLET PO PRN (17:30)
[2022-12-02] MEDS ORDERED: SALINE NASAL SPRAY (OCEAN) 45 ML BTL PRN (18:30)
[2022-12-02 20:05] VITALS: BP 114/54
[2022-12-02] MEDS: RT-ALBUTEROL HFA 8.5 GM INHALER IH SCH (20:48)
[2022-12-02] MEDS ORDERED: RT-ALBUTEROL SULF 2.5 MG/3 ML PRE-MIX VIAL INH SCH (21:00)
[2022-12-02] MEDS: APIXABAN 5 MG (ELIQUIS) TABLET PO SCH (21:59)
[2022-12-02] MEDS: DOCUSATE SODIUM 100 MG (COLACE) CAP PO SCH (21:59)
[2022-12-02] MEDS: MAGNESIUM OXIDE (MAG-OX)400 MG TAB PO SCH (21:59)
[2022-12-02] MEDS: SENNA W/DOCUSATE (SENOKOT S) TABLET PO SCH (21:59)
[2022-12-02] MEDS: polyethylene glycoL POWDER 17 GM (MIRALAX) PACK PO SCH (21:59)
[2022-12-03] MEDS: RT-ALBUTEROL HFA 8.5 GM INHALER IH SCH ×4 (02:46→21:02)
--- NOTE | 2022-12-03 05:43 | PM&R Progress Note ---
Subjective HPI/CC On Admission Date Seen by Provider: December 03, 2022 Time Seen by Provider: 09:00 Subjective/Events-last exam 12/03/2022: Doing well Improving with therapy No pain Wound care consulted Review of Systems General: Fatigue, Malaise Objective Exam Vital Signs Vital Signs Date Time Temp Pulse Resp B/P (MAP) Pulse Ox O2 Delivery O2 Flow Rate FiO2 12/03/22 20:09 37.1 58 20 117/59 (78) 95 Nasal Cannula 2.50 12/02/22 20:48 Capillary Refill : General Appearance: No Apparent Distress, WD/WN, Chronically ill HEENT: PERRL/EOMI, Normal ENT Inspection, Pharynx Normal Neck: Full Range of Motion, Normal Inspection, Non Tender, Supple, Carotid Bruit Respiratory: Chest Non Tender, No Accessory Muscle Use, No Respiratory Distress, Crackles, Decreased Breath Sounds, Wheezing Cardiovascular: Regular Rate, Rhythm, No Gallop, No JVD, No Murmur, Normal Peripheral Pulses Gastrointestinal: Normal Bowel Sounds, No Organomegaly, No Pulsatile Mass, Non Tender, Soft Back: Normal Inspection, No CVA Tenderness, No Vertebral Tenderness Extremity: Normal Capillary Refill, Normal Inspection, Normal Range of Motion, Non Tender, No Calf Tenderness, Pedal Edema Neurologic/Psychiatric: Alert, Oriented x3, Normal 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 FIM Transfers Therapy Code Descriptions/Definitions Functional [place] Measure: 0=Not Assessed/NA 4=Minimal Assistance 1=Total Assistance 5=Supervision or Setup 2=Maximal Assistance 6=Modified [place] 3=Moderate Assistance 7=Complete IndependenceSCALE: Activities may be completed with or without assistive devices. 1-Jhagicofgv-zwfqcxo completes the activity by him/herself with no assistance from a helper. 5-Set-up or Clean-up Assistance-helper sets up or cleans up; patient completes activity. [place] assists only prior to or following the activity. 4-Supervision or Touching Assistance-helper provides verbal cues and/or touching/steadying and/or contact guard assistance as patient completes activity. Assistance may be provided throughout the activity or intermittently. 3-Partial/Moderate Assistance-helper does LESS THAN HALF the effort. [place] lifts, holds or supports trunk or limbs, but provides less than half the effort. 2-Substantial/Maximal Assistance-helper does MORE THAN HALF the effort. [place] lifts or holds trunk or limbs and provides more than half the effort. 8-Izfmmbbdb-rnqeau does ALL the effort. Patient does none of the effort to complete the activity. Or, the assistance of 2 or more helpers is required for the patient to complete the activity. If activity was not attempted, code reason: 7-Patient Refused. 9-Not Applicable-not attempted and the patient did not perform the activity before the current illness, exacerbation or injury. 10-Not Attempted due to Environmental Limitations-(lack of equipment, weather restraints, etc.). 88-Not Attempted due to Medical Conditions or Safety Concerns. Assessment/Plan Assessment and Plan Assess & Plan/Chief Complaint Assessment: Debility following cardiac arrest 11/06/22 Left sided PTX s/p chest tube now residual SQ emphysema AF HTN HLP COPD DELIA non-compliant with CPAP Plan: PT OT Home meds Monitor closely 12/03/2022: Monitor closely Cardiology consulted (1) Respiratory failure Status: Acute TABATHA JOHNSON December 03, 2022 05:43
[2022-12-03 07:18] LABS: ALBUMIN 2.8 GM/DL (3.2-4.5); POTASSIUM 4.2 MMOL/L (3.6-5.0)
[2022-12-03 07:20] LABS: CALCIUM 8.3 MG/DL (8.5-10.1)
[2022-12-03 07:21] LABS: TOTAL PROTEIN 5.5 GM/DL (6.4-8.2)
[2022-12-03 07:23] LABS: BILIRUBIN,TOTAL 0.7 MG/DL (0.1-1.0)
[2022-12-03 07:24] LABS: CREATININE SERUM 0.72 MG/DL (0.60-1.30)
[2022-12-03] MEDS: AMIODARONE 200 MG (CORDARONE) TAB PO SCH (07:27)
[2022-12-03] MEDS: THIAMINE 100 MG (VITAMIN B-1) TAB PO SCH (07:27)
[2022-12-03] MEDS: DOCUSATE SODIUM 100 MG (COLACE) CAP PO SCH ×2 (07:27→20:30)
[2022-12-03] MEDS: APIXABAN 5 MG (ELIQUIS) TABLET PO SCH ×2 (07:27→20:30)
[2022-12-03] MEDS: FOLIC ACID 1 MG TAB PO SCH (07:27)
[2022-12-03] MEDS: SENNA W/DOCUSATE (SENOKOT S) TABLET PO SCH ×2 (07:27→20:30)
[2022-12-03] MEDS: MAGNESIUM OXIDE (MAG-OX)400 MG TAB PO SCH ×2 (07:27→20:30)
[2022-12-03] MEDS: MULTIVITAMINS LIQUID 15 ML UDC PO SCH (07:28)
[2022-12-03] MEDS: UMECLIDINIUM BROMIDE (INCRUSE ELLIPTA) 7'S IH SCH (08:00)
[2022-12-03 08:10] VITALS: BP 104/78
[2022-12-03 09:00] VITALS: BP 108/68
[2022-12-03] MEDS: polyethylene glycoL POWDER 17 GM (MIRALAX) PACK PO SCH ×2 (09:00→20:30)
[2022-12-03] MEDS ORDERED: FOLIC ACID 1 MG TAB PO SCH (09:00)
[2022-12-03] MEDS ORDERED: NON-FORMULARY MEDICATION 1 EA EA (Tiotropium Br/Olodaterol HCl (Stiolto Respimat Inhal Spr IH SCH (09:00)
--- NOTE | 2022-12-03 11:03 | Occupational Ther Daily Note ---
OT Current Status-Daily Note Subjective Pt in recliner, agreeable to OT Tx. Mental Status/Objective Patient Orientation: Person, Place, Time, Situation ADL-Treatment Therapy Code Descriptions/Definitions Functional [place] Measure: 0=Not Assessed/NA 4=Minimal Assistance 1=Total Assistance 5=Supervision or Setup 2=Maximal Assistance 6=Modified [place] 3=Moderate Assistance 7=Complete IndependenceSCALE: Activities may be completed with or without assistive devices. 7-Ojkpfhulch-gjtligw completes the activity by him/herself with no assistance from a helper. 5-Set-up or Clean-up Assistance-helper sets up or cleans up; patient completes activity. [place] assists only prior to or following the activity. 4-Supervision or Touching Assistance-helper provides verbal cues and/or touching/steadying and/or contact guard assistance as patient completes activity. Assistance may be provided throughout the activity or intermittently. 3-Partial/Moderate Assistance-helper does LESS THAN HALF the effort. [place] lifts, holds or supports trunk or limbs, but provides less than half the effort. 2-Substantial/Maximal Assistance-helper does MORE THAN HALF the effort. [place] lifts or holds trunk or limbs and provides more than half the effort. 9-Lasivplmt-rntijj does ALL the effort. Patient does none of the effort to complete the activity. Or, the assistance of 2 or more helpers is required for the patient to complete the activity. If activity was not attempted, code reason: 7-Patient Refused. 9-Not Applicable-not attempted and the patient did not perform the activity before the current illness, exacerbation or injury. 10-Not Attempted due to Environmental Limitations-(lack of equipment, weather restraints, etc.). 88-Not Attempted due to Medical Conditions or Safety Concerns. Other Treatment Pt seated in recliner. OT tx focused on increasing BUE Strength and activity tolerance. OT educated pt on UE theraband exercises, moderate resistance(red) theraband. Pt completed x15 reps, 5/5 exercises. Post tx, pt in recliner, call light in reach and all needs met. Education OT Patient Education: Correct positioning, Energy conservation, Modified ADL techniques, Progress toward Goal/Update tx plan, Purpose of tx/functional activities, Rehab process Teaching Recipient: Patient Teaching Methods: Discussion Response to Teaching: Verbalize Understanding BIMS CAM BIMS Expression of Ideas and Wants: Without Difficulty Understanding Verbal Content: Understands Brief Interview/Mental Status: Yes IRF KASH BIMS: IRF KASH BIMS Response (Comments) Value Repitition of Three Words Three 3 Recalls Socks Yes, No Cue Required 2 Recalls Blue Yes, No Cue Required 2 Recalls Bed Yes, No Cue Required 2 Year Correct 3 Month Missed by 6 Days/1 Month 1 Day Correct 1 Total 14 Should Staff Asses. Mental St.: No CAM Mental Status Change/Baseline: 0 Inattention: 0 Disorganized thinkin Altered level of consciousness: 0 OT Short Term Goals Short Term Goals Time Frame: December 12, 2022 Shower/bathe self: 5 Lower body dressin Putting on/taking off footwear: 5 OT Residential Goals Residential Goals Time Frame: December 26, 2022 Eating (QC): 6 Oral Hygiene (QC): 6 Toileting Hygiene (QC): 6 Shower/Bathe Self (QC): 6 Upper Body Dressing (QC): 6 Lower Body Dressing (QC): 6 On/Off Footwear (QC): 6 Additional Goals: 1-Demonstrate ADL Tasks, 2-Verbalize Understanding, 3- ImproveStrength/Natalia 1=Demonstrate adherence to instructed precautions during ADL tasks. 2=Patient will verbalize/demonstrate understanding of assistive devices/modifications for ADL. 3=Patient will improve strength/tolerance for activity to enable patient to perform ADL's. OT Education/Plan Problem List/Assessment Assessment: Decreased Activ Tolerance, Decreased UE Strength, Impaired Funct Balance, Impaired I ADL's Discharge Recommendations Plan/Recommendations: Continue POC Treatment Plan/Plan of Care Patient would benefit from OT for education, treatment and training to promote independence in ADL's, mobility, safety and/or upper extremity function for ADL's. Plan of Care: ADL Retraining, Functional Mobility, Group Exercise/Act as Ind, UE Funct Exercise/Act Treatment Duration: December 26, 2022 Frequency: At least 5 of 7 days/Wk (IRF) Estimated Hrs Per Day: 1.5 hours per day Agreement: Yes Rehab Potential: Good Time Start Time: 10:30 Stop Time: 10:50 DATE: December 03, 2022 Total Time Billed (hr/min): 20 Billed Treatment Time 1, EX GENOVEVA WOODWARD OT December 03, 2022 11:03
--- NOTE | 2022-12-03 11:12 | Speech Therapy Progress Note ---
Therapy Progress Note Speech pathology received a consultation for the patient. At this time, skilled speech pathology services have not been requested or warranted. Please re- consult speech pathology with any changes or concerns. Thank you. MUKUL RAMIREZ December 03, 2022 11:12
[2022-12-03 11:41] LABS: BASOPHILS # (AUTO) 0.1 10^3/uL (0.0-0.1); BASOPHILS % (AUTO) 0 % (0-10); EOSINOPHILS # (AUTO) 1.2 10^3/uL (0.0-0.3); EOSINOPHILS % (AUTO) 9 % (0-10); HEMATOCRIT 29 % (40-54); HEMOGLOBIN 9.7 g/dL (13.3-17.7); LYMPHOCYTES # (AUTO) 1.1 10^3/uL (1.0-4.0); LYMPHOCYTES % (AUTO) 9 % (12-44); MEAN CORPUSCULAR HEMOGLOBIN 33 pg (25-34); MEAN CORPUSCULAR HGB CONC 33 g/dL (32-36); MEAN CORPUSCULAR VOLUME 100 fL (80-99); MEAN PLATELET VOLUME 10.4 fL (9.0-12.2); MONOCYTES # (AUTO) 0.9 10^3/uL (0.0-1.0); MONOCYTES % (AUTO) 7 % (0-12); NEUTROPHILS # (AUTO) 9.7 10^3/uL (1.8-7.8); NEUTROPHILS % (AUTO) 73 % (42-75); PLATELET COUNT 167 10^3/uL (130-400); WHITE BLOOD COUNT 13.2 10^3/uL (4.3-11.0)
--- NOTE | 2022-12-03 11:46 | Physical Therapy Daily Note ---
PT Daily Note-Current Pain Section J - Health Conditions 1. Rarely or not at all 2. Occasionally 3. Frequently 4. Almost constantly 8. Unable to answer Pain Effect on Sleep: 0 Pain Interference with Therapy: 0 Pain Interference w/Day-to-Day: 0 Mental Status Patient Orientation: Person, Place, Time, Situation Comprehension: 5 Expression: 6 Social Interaction: 6 Problem Solvin Memory: 5 Transfers SCALE: Activities may be completed with or without assistive devices. 0-Fhahjrccyw-ijeohor completes the activity by him/herself with no assistance from a helper. 5-Set-up or Clean-up Assistance-helper sets up or cleans up; patient completes activity. [place] assists only prior to or following the activity. 4-Supervision or Touching Assistance-helper provides verbal cues and/or touching/steadying and/or contact guard assistance as patient completes activity. Assistance may be provided throughout the activity or intermittently. 3-Partial/Moderate Assistance-helper does LESS THAN HALF the effort. [place] lifts, holds or supports trunk or limbs, but provides less than half the effort. 2-Substantial/Maximal Assistance-helper does MORE THAN HALF the effort. [place] lifts or holds trunk or limbs and provides more than half the effort. 6-Bwrkgexrm-sluylp does ALL the effort. Patient does none of the effort to complete the activity. Or, the assistance of 2 or more helpers is required for the patient to complete the activity. If activity was not attempted, code reason: 7-Patient Refused. 9-Not Applicable-not attempted and the patient did not perform the activity before the current illness, exacerbation or injury. 10-Not Attempted due to Environmental Limitations-(lack of equipment, weather restraints, etc.). 88-Not Attempted due to Medical Conditions or Safety Concerns. Roll Left & Right (QC): 6 Sit to Lying (QC): 6 Lying to Sitting/Side of Bed(Q: 5 Sit to Stand (QC): 4 Chair/Aex-kr-Xugqz Xfer(QC): 4 Toilet Transfer (QC): 4 Car Transfer (QC): 4 Gait Training Walk 10 feet (QC): 4 Walk 50 ft with 2 Turns(QC): 4 Walk 150 ft (QC): 4 Walking 10ft/uneven surface-QC: 4 Stair Training 1 Step (curb) (QC): 3 4 Steps (QC): 3 12 Steps (QC): 3 Exercises Seated Therapy Exercises: Sit to stand, Long arc quads, Hip flexion, Hamstring Curls, Glut set Treatments Pt ambulated with Rw and SBA with 10% VC for directional changed and O2 cord management. pt is able to execute sitting ther-ex in all planes of motion with BLE in sitting with green thera-band and 2 sets x 10 reps each wit h rest break in between with SOB. pt O2 is WFL at all times and with pursed lip breathing pt is able to catch his breath and resume activity. Assessment Current Status: Good Progress PT Senior Care Goals Equipment Mechanic Specialist Goals PT Senior Care Goals Time Frame: December 16, 2022 Roll Left & Right (QC): 6 Sit to Lying (QC): 6 Lying-Sitting on Side/Bed(QC): 6 Sit to Stand (QC): 6 Chair/Ikh-mo-Evxlx Xfer(QC): 6 Toilet Transfer (QC): 6 Car Transfer (QC): 6 Does the Patient Walk: Yes Walk 10 feet (QC): 6 Walk 50ft with 2 Turns (QC): 6 Walk 150 ft (QC): 6 Walking 10ft on Uneven Surface: 6 1 Step (curb) (QC): 6 4 Steps (QC): 6 12 Steps (QC): 6 Picking up an Object (QC): 6 Wheel 50 feet with 2 turns (QC: 9 Wheel 150 feet: 9 PT Plan Treatment/Plan Treatment Plan: Continue Plan of Care Treatment Duration: December 16, 2022 Frequency: At least 5 of 7 days/Wk (IRF) Time Time In: 0944 Time Out: 1014 DATE: December 03, 2022 Total Billed Treatment Time: 30 Total Billed Treatment 1 GT EX Cathy Hicks FLEET MAINTENANCE FOREMAN December 03, 2022 11:46
--- NOTE | 2022-12-03 12:27 | Consultation-Cardiology ---
HPI-Cardiology Cardiology Consultation: Date of Consultation 12/03/22 Time Seen by a Provider: 11:55 Date of Admission Attending Physician Tasha Nicolas MD Admitting Physician Admitting Physician: Madie Johnson DO Attending Physician: Madie Johnson DO Consulting Physician NADIR ORTEGA MD, MA, FACP, FACC, FSCAI, CCDS Physician requesting consult: Dr Johnson HPI: Chief Complaint: Reason for Card consult: Cardiac f/u 66 yo man who initially presented to this hospital on 11/06/22 with dyspnea and resp status worsened and required intubation and mech vent. Also, apparently transiently had PEA. Was diagnosed with spontaneous pneumothorax on the L. Had chest tube place. Was transferred to [facility] in where he spent a month and is now being treated by Dr Johnson in her Rehab Unit. He denies cp or palp or syncope since having come off the vent on which he thinks he was for many day. He denies swelling. Notes gen weakness and malaise. Reports bilat leg weakness due to bed-ridden status for multiple weeks. Review of Systems-Cardiology Review of Systems Constitutional: As described under HPI Eyes: No vision change Ears/Nose/Throat: No ear discharge, No nasal drainage, No recent hearing loss Respiratory: As described under HPI Cardiovascular: As described under HPI Gastrointestinal: No constipation, No diarrhea, No vomiting Genitourinary: No dysuria, No hematuria, No urine frequency changes Musculoskeletal: No back pain, No joint pain Skin: No rash, No ulcerations Psychiatric/Neurological: No seizure, No focal weakness, No syncope Hematologic: No bleeding abnormalities All Other Systems Reviewed Negative Unless Noted: Yes TBI-Kodizm-Rhdfdc Hx Patient Social History Marrital Status: Employed/Student: retired Smoking Status: Former Smoker 2nd Hand Smoke Exposure: No Have you traveled recently?: No Alcohol Use?: Yes Pt feels they are or have been: No Tobacco type used: Cigarettes Immunizations Up To Date Tetanus Booster (TDap): Less than 5yrs Date of Pneumonia Vaccine: May 25, 2015 Date of Influenza Vaccine: May 25, 2015 Past Medical History PMH As described under Assessment. Family Medical History Family Medical History: He reports an older brother with CAD and HTN. Family History: Cardiovascular disease G8 BROTHER Hypertension G8 BROTHER Allergies and Home Medications Allergies Coded Allergies: NATALY Inhibitors (Verified Allergy, Unknown, 08/12/19) angioedema Patient Home Medication List Home Medication List Reviewed: Yes Albuterol Sulfate (Ventolin Hfa) 90 Mcg Hfa.aer.ad, 2 PUFF INH Q4H PRN for SHORTNESS OF BREATH, (Reported) Entered as Reported by: CARLO CHOE on 07/16/17 0753 Last Action: Continued Albuterol Sulfate (Albuterol Sulfate) 2.5 Mg/0.5 Ml Vial.neb, 2.5 MG INH Q6H PRN for SHORTNESS OF BREATH, (Reported) Entered as Reported by: YAMILE KRUSE on 09/16/22 1136 Last Action: Continued Albuterol Sulfate (Ventolin Hfa) 90 Mcg Hfa.aer.ad, 2 PUFF INH BID, (Reported) Entered as Reported by: YAMILE KRUSE on 12/02/221612 Last Action: Continued Amiodarone HCl (Amiodarone HCl) 200 Mg Tablet, 200 MG PO DAILY, (Reported) Entered as Reported by: YAMILE KRUSE on 12/02/221612 Last Action: Continued Apixaban (Eliquis) 5 Mg Tablet, 5 MG PO BID, (Reported) Entered as Reported by: YAMILE KRUSE on 12/02/221612 Last Action: Continued Folic Acid (Folic Acid) 1 Mg Tablet, 1 MG PO DAILY, (Reported) Entered as Reported by: YAMILE KRUSE on 12/02/221612 Last Action: Continued Hydrocodone/Acetaminophen (Hydrocodone-Acetamin 10-325 mg) 10 Mg-325 Mg Tablet, 1 EACH PO Q4H PRN for PAIN-MODERATE (5-7), (Reported) Entered as Reported by: YAMILE KRUSE on 12/02/221612 Last Action: Continued Metoprolol Succinate (Metoprolol Succinate) 25 Mg Tab.er.24h, 25 MG PO DAILY, (Reported) Entered as Reported by: YAMILE KRUSE on 12/02/221612 Last Action: Continued Thiamine HCl (Vitamin B-1) 100 Mg Tablet, 100 MG PO DAILY, (Reported) Entered as Reported by: YAMILE KRUSE on 12/02/221612 Last Action: Continued Tiotropium Br/Olodaterol HCl (Stiolto Respimat Inhal [place]) 2.5 Mcg-2.5 Mcg/Actuation Mist.inhal, 2 PUFF IH DAILY, (Reported) Entered as Reported by: YAMILE KRUSE on 12/02/22 1613 Last Action: Converted Discontinued Medications Amiodarone HCl (Amiodarone HCl) 200 Mg Tablet, 200 MG PO UD Discontinued Reason: No Longer Taking Prescribed by: BJORN HEART on 09/19/22 1112 Last Action: Discontinued Apixaban (Eliquis) 5 Mg Tablet, 5 MG PO BID, (Reported) Discontinued Reason: No Longer Taking Entered as Reported by: YAMILE KRUSE on 09/16/22 1136 Last Action: Discontinued Apixaban (Eliquis) 5 Mg Tablet, 5 MG PO BID Discontinued Reason: No Longer Taking Prescribed by: BOJRN HEART on 09/19/22 111 Last Action: Discontinued Ascorbic Acid/Multivit-Min (Emergen-C 1,000 mg Packet) 1,000 Mg Effpowdpkt, 1,000 MG PO DAILY, (Reported) Discontinued Reason: No Longer Taking Entered as Reported by: CARLO CHOE on 07/16/17 0906 Last Action: Discontinued Digoxin (Digoxin) 250 Mcg (0.25 Mg) Tablet, 250 MCG PO 1800, (Reported) Discontinued Reason: No Longer Taking Entered as Reported by: YAMILE KRUSE on 09/16/22 112 Last Action: Discontinued Diltiazem HCl (Diltiazem 24Hr ER) 240 Mg Cap.er.24h, 240 MG PO DAILY Discontinued Reason: No Longer Taking Prescribed by: MADIE JOHNSON on 09/19/22 1124 Last Action: Discontinued Prednisone (Prednisone) 10 Mg Tab, MG PO DAILY, (Reported) Discontinued Reason: No Longer Taking Entered as Reported by: YAMILE KRUSE on 09/16/22 112 Last Action: Discontinued Physical Exam-Cardiology Physical Exam Vital Signs/I&O 12/03/22 12/03/22 12/03/22 12/03/22 02:47 08:00 08:10 09:10 Temp 36.2 Pulse 58 Resp 24 B/P (MAP) 104/78 (87) Pulse Ox 95 98 94 94 O2 Delivery Nasal Cannula Nasal Cannula Nasal Cannula Nasal Cannula O2 Flow Rate 2.50 2.50 2.50 2.50 Capillary Refill : Constitutional: AAO x 3, well-developed, well-nourished HEENT: EOMI, hearing is well preserved; No xanthelasmas are seen Respiratory: No accessory muscle use; chest expansion is symmetric, chest is bilaterally symmetric, other (fair to good, bilateral air entry) Cardiovascular: irregularly irregular, S1 and S2, systolic murmur (soft RAYSHAWN at card base) Gastrointestinal: No tender; soft; No guarding, No rebound; audible bowel sounds Extremities: No clubbing, No cyanosis, No significant edema Neurologic/Psychiatric: oriented x 3, other (moves all limbs) Skin: normal color, warm/dry; No cyanosis, No cool, No diaphoresis, No rash on exposed areas, No ulcerations on exposed areas Data Review Labs Laboratory Tests 12/03/22 00:00: White Blood Count 13.2H, Red Blood Count 2.93L, Hemoglobin 9.7L, Hematocrit 29L, Mean Corpuscular Volume 100H, Mean Corpuscular Hemoglobin 33, Mean Corpuscular Hemoglobin Concent 33, Red Cell Distribution Width 12.6, Platelet Count 167, Mean Platelet Volume 10.4, Immature Granulocyte % (Auto) 2, Neutrophils (%) (Auto) 73, Lymphocytes (%) (Auto) 9L, Monocytes (%) (Auto) 7, Eosinophils (%) (Auto) 9, Basophils (%) (Auto) 0, Neutrophils # (Auto) 9.7H, Lymphocytes # (Auto) 1.1, Monocytes # (Auto) 0.9, Eosinophils # (Auto) 1.2H, Basophils # (Auto) 0.1, Immature Granulocyte # (Auto) 0.3H 12/03/22 06:34: Sodium Level 138, Potassium Level 4.2, Chloride Level 95L, Carbon Dioxide Level 32, Anion Gap 11, Blood Urea Nitrogen 8, Creatinine 0.72, Estimat Glomerular Filtration Rate 101, BUN/Creatinine Ratio 11, Glucose Level 82, Calcium Level 8.3L, Corrected Calcium 9.3, Total Bilirubin 0.7, Aspartate Amino Transf (AST/SGOT) 27, Alanine Aminotransferase (ALT/SGPT) 43, Alkaline Phosphatase 121, Total Protein 5.5L, Albumin 2.8L Laboratory Tests 12/03/22 00:00 12/03/22 06:34 A/P-Cardiology Assessment/Admission Diagnosis Ac resp failure (and transient PEA) due to spontaneous L pneumothorax due to ruptured bleb (treated at [facility] in ) PAF, currently NSR with PACs Ch COPD H/o heavy EtOH use H/o NICD bu techo at [facility], is reported to have shown normal LVEF (Dr Rizzo,s note of 11/29/22) H/o DELIA Discussion and Recomendations * Continue amio, bb, OAC * Monitor labs closely * We reviewed his [facility] records (to the extent available) NADIR ORTEGA MD FACP FAC CCDS December 03, 2022 12:27
--- NOTE | 2022-12-03 13:01 | Occupational Ther Daily Note ---
OT Current Status-Daily Note Subjective Pt alert, sitting up in bed. Pt agrees to therapy. No c/o pain. Mental Status/Objective Patient Orientation: Person, Place, Time, Situation Attachments: Oxygen (2-3L) ADL-Treatment Pt independent with eating. Pt agrees to shower. Supervision for toileting. Supervision for shower. SBA for transfers using FWW. Set up for UBD, LBD and footwear. Independent for oral care sitting at sink. Pt took increased time to complete all tasks due to SOA and lengthy recovery breaks. Therapy Code Descriptions/Definitions Functional [place] Measure: 0=Not Assessed/NA 4=Minimal Assistance 1=Total Assistance 5=Supervision or Setup 2=Maximal Assistance 6=Modified [place] 3=Moderate Assistance 7=Complete IndependenceSCALE: Activities may be completed with or without assistive devices. 8-Ezazarsykk-zwmylhz completes the activity by him/herself with no assistance from a helper. 5-Set-up or Clean-up Assistance-helper sets up or cleans up; patient completes activity. [place] assists only prior to or following the activity. 4-Supervision or Touching Assistance-helper provides verbal cues and/or touching/steadying and/or contact guard assistance as patient completes activity. Assistance may be provided throughout the activity or intermittently. 3-Partial/Moderate Assistance-helper does LESS THAN HALF the effort. Corona lifts, holds or supports trunk or limbs, but provides less than half the effort. 2-Substantial/Maximal Assistance-helper does MORE THAN HALF the effort. [place] lifts or holds trunk or limbs and provides more than half the effort. 4-Wevhothgv-ruskyh does ALL the effort. Patient does none of the effort to complete the activity. Or, the assistance of 2 or more helpers is required for the patient to complete the activity. If activity was not attempted, code reason: 7-Patient Refused. 9-Not Applicable-not attempted and the patient did not perform the activity before the current illness, exacerbation or injury. 10-Not Attempted due to Environmental Limitations-(lack of equipment, weather restraints, etc.). 88-Not Attempted due to Medical Conditions or Safety Concerns. Eating (QC): 6 Oral Hygiene (QC): 6 Shower/Bathe Self (QC): 4 Upper Body Dressing (QC): 5 Lower Body Dressing (QC): 5 On/Off Footwear: 5 Toileting Hygiene (QC): 4 Toilet Transfer (QC): 4 OT Short Term Goals Short Term Goals Time Frame: December 12, 2022 Shower/bathe self: 5 Lower body dressin Putting on/taking off footwear: 5 OT Marketing Project Lead Goals Mcc Goals Time Frame: December 26, 2022 Acute change in mental status: 0 Inattention: 0 Disorganized thinkin Altered level of consciousness: 0 Eating (QC): 6 Oral Hygiene (QC): 6 Toileting Hygiene (QC): 6 Shower/Bathe Self (QC): 6 Upper Body Dressing (QC): 6 Lower Body Dressing (QC): 6 On/Off Footwear (QC): 6 Additional Goals: 1-Demonstrate ADL Tasks, 2-Verbalize Understanding, 3-Improv eStrength/Natalia 1=Demonstrate adherence to instructed precautions during ADL tasks. 2=Patient will verbalize/demonstrate understanding of assistive devices/modifications for ADL. 3=Patient will improve strength/tolerance for activity to enable patient to p erform ADL's. OT Education/Plan Problem List/Assessment Assessment: Decreased Activ Tolerance, Impaired Self-Care Skills Discharge Recommendations Plan/Recommendations: Continue POC Treatment Plan/Plan of Care Patient would benefit from OT for education, treatment and training to promote independence in ADL's, mobility, safety and/or upper extremity function for ADL's. Plan of Care: ADL Retraining, Functional Mobility, Group Exercise/Act as Ind, UE Funct Exercise/Act Treatment Duration: December 26, 2022 Frequency: At least 5 of 7 days/Wk (IRF) Estimated Hrs Per Day: 1.5 hours per day Agreement: Yes Rehab Potential: Good Time Start Time: 07:45 Stop Time: 09:00 DATE: December 03, 2022 Total Time Billed (hr/min): 75 Billed Treatment Time 1 vsiit-ADL 5 (75 min) MELISSA PEREZ December 03, 2022 13:01
--- NOTE | 2022-12-03 13:36 | Wound Care Assessment ---
Wound Care Assessment Date Seen by Provider: December 03, 2022 Time Seen by Provider: 12:05 Chief Complaint Left anterior chest wound HPI Edward Garcia is a 66 yo male who was transferred from [facility] for rehab. Edward is post-cardiac arrest from 11-06-22. The patient had a chest tube placed for pleural effusion management while at [facility] and further had a wound VAC placed on his left anterior chest for management of "air underneath my skin" along his anterior chest, neck, and lower face. There is no evidence of persistent crepitus today and his wound is small in size. Chest tube sites x 3 appear small and healing appropriately. The patient states he had the wound VAC placed on 11/26, which was removed 1.5 weeks later. He admits only minimal pain from his wound site at this time. He also notes multiple small ulcers along his midline buttocks secondary to his sedentary status for the past several weeks. His wound healing will be delayed by his protein energy malnutrition and his anemia. Past Medical History: Admits Heart Disease HTN, PEM, Anemia Smoking Status: Former Smoker (quit 1 year ago) Recreational Drug Use: No Alcohol Use: Regular Use Review of Systems General: No Chills Cardiovascular: Chest Pain (chest wall) Exam Vital Signs Date Time Temp Pulse Resp B/P (MAP) Pulse Ox O2 Delivery O2 Flow Rate FiO2 12/03/22 09:10 94 Nasal Cannula 2.50 12/03/22 08:10 36.2 58 24 104/78 (87) 12/02/22 20:48 Capillary Refill : General Appearance: WD/WN, no apparent distress HEENT: PERRL/EOMI Skin: normal color, other (open wound 1.5x3x1 cm to the left anterior chest wall, exposed tissue is beefy red and non-granulating. Exudate is sersanguinous ) Wound assessment: [id number]. The epithelialization is none. There is no tunneling or undermining. Drainage is large and serosanguinous. Granulation is medium and pink. Necrotic is medium and slough. Margins is flat. Results Laboratory Tests 12/03/22 00:00: White Blood Count 13.2H, Red Blood Count 2.93L, Hemoglobin 9.7L, Hematocrit 29L, Mean Corpuscular Volume 100H, Mean Corpuscular Hemoglobin 33, Mean Corpuscular Hemoglobin Concent 33, Red Cell Distribution Width 12.6, Platelet Count 167, Mean Platelet Volume 10.4, Immature Granulocyte % (Auto) 2, Neutrophils (%) (Auto) 73, Lymphocytes (%) (Auto) 9L, Monocytes (%) (Auto) 7, Eosinophils (%) (Auto) 9, Basophils (%) (Auto) 0, Neutrophils # (Auto) 9.7H, Lymphocytes # (Auto) 1.1, Monocytes # (Auto) 0.9, Eosinophils # (Auto) 1.2H, Basophils # (Auto) 0.1, Immature Granulocyte # (Auto) 0.3H 12/03/22 06:34: Sodium Level 138, Potassium Level 4.2, Chloride Level 95L, Carbon Dioxide Level 32, Anion Gap 11, Blood Urea Nitrogen 8, Creatinine 0.72, Estimat Glomerular Filtration Rate 101, BUN/Creatinine Ratio 11, Glucose Level 82, Calcium Level 8.3L, Corrected Calcium 9.3, Total Bilirubin 0.7, Aspartate Amino Transf (AST/S GOT) 27, Alanine Aminotransferase (ALT/SGPT) 43, Alkaline Phosphatase 121, Total Protein 5.5L, Albumin 2.8L Assessment/Plan/Dx A: 1. Left anterior chest wound 2. Chest tube sites 3. PEM 4. Anemia P: 1. Cleanse daily with Vashe. Apply silver alginate hydrofiber to wound bed and secure with allevyn BFD. Change daily 2. Wilber liberally twice daily with betadine and air dry. Dry gauze dressing if drainage noted 3. Protein supplementation 4. Per primary team. Supervisory-Addendum Brief Verification & Attestation Participated in pt care: history, MDM, physical Personally performed: exam, history, MDM, supervision of care Care discussed with: Medical Student Procedures: n/a Results interpretation: Verified all documentation JUSTIN Klein MD December 03, 2022 13:36 LO MUNGUIA MD December 03, 2022 15:45
--- NOTE | 2022-12-03 14:59 | Physical Therapy Daily Note ---
PT Daily Note-Current Subjective Pt in room in recliner upon arrival and willing for therapy this day. pt states slight pain in the left rib where chest tub was 3/10. Pain Section J - Health Conditions 1. Rarely or not at all 2. Occasionally 3. Frequently 4. Almost constantly 8. Unable to answer Pain Effect on Sleep: 0 Pain Interference with Therapy: 0 Pain Interference w/Day-to-Day: 0 Transfers SCALE: Activities may be completed with or without assistive devices. 4-Vuvtezjasb-jdrkdkn completes the activity by him/herself with no assistance from a helper. 5-Set-up or Clean-up Assistance-helper sets up or cleans up; patient completes activity. Sasser assists only prior to or following the activity. 4-Supervision or Touching Assistance-helper provides verbal cues and/or touching/steadying and/or contact guard assistance as patient completes activity. Assistance may be provided throughout the activity or intermittently. 3-Partial/Moderate Assistance-helper does LESS THAN HALF the effort. Sasser lifts, holds or supports trunk or limbs, but provides less than half the effort. 2-Substantial/Maximal Assistance-helper does MORE THAN HALF the effort. Sasser lifts or holds trunk or limbs and provides more than half the effort. 0-Zwkmmojub-oukhlk does ALL the effort. Patient does none of the effort to complete the activity. Or, the assistance of 2 or more helpers is required for the patient to complete the activity. If activity was not attempted, code reason: 7-Patient Refused. 9-Not Applicable-not attempted and the patient did not perform the activity before the current illness, exacerbation or injury. 10-Not Attempted due to Environmental Limitations-(lack of equipment, weather restraints, etc.). 88-Not Attempted due to Medical Conditions or Safety Concerns. Exercises Seated Therapy Exercises: Sit to stand, Long arc quads, Chair press-ups, Hip flexion, Hamstring Curls, Glut set Standing: Sit to Stand, Side steps Treatments Pt is able to ambulate 217 ft with Rw and multiple rest breaks for SOB. O2 was WFL at all times. pt is able to rest for aprox 1-3 minutes and is able to continue with ambulation. pt is able to preform the-ex in all planes of motion with BLE for 2 sets of 15 each with rest in between each set secondary to fatigue. Pt executed standing dynamic balance incorporating moving outside COG with no LOB present but requires VC of 15% for safety and energy conservation to be able to finished assigned task. Assessment Current Status: Excellent Progress PT Halfway Goals Unit Educator Goals PT Halfway Goals Time Frame: December 16, 2022 Roll Left & Right (QC): 6 Sit to Lying (QC): 6 Lying-Sitting on Side/Bed(QC): 6 Sit to Stand (QC): 6 Chair/Dbr-eu-Jwgmf Xfer(QC): 6 Toilet Transfer (QC): 6 Car Transfer (QC): 6 Does the Patient Walk: Yes Walk 10 feet (QC): 6 Walk 50ft with 2 Turns (QC): 6 Walk 150 ft (QC): 6 Walking 10ft on Uneven Surface: 6 1 Step (curb) (QC): 6 4 Steps (QC): 6 12 Steps (QC): 6 Picking up an Object (QC): 6 Wheel 50 feet with 2 turns (QC: 9 Wheel 150 feet: 9 PT Plan Treatment/Plan Treatment Plan: Continue Plan of Care Treatment Duration: December 16, 2022 Frequency: At least 5 of 7 days/Wk (IRF) Time Time In: 1300 Time Out: 1400 DATE: December 03, 2022 Total Billed Treatment Time: 60 Total Billed Treatment 1 GTx2 EX FA Cathy Hicks MALTHOUSE LABORER December 03, 2022 14:59
[2022-12-03] MEDS ORDERED: HYPOCHLOROUS ACID/NaCl (VASHE) 250 ML IR SCH (15:45)
[2022-12-03 20:09] VITALS: BP 117/59
[2022-12-04] MEDS: RT-ALBUTEROL HFA 8.5 GM INHALER IH SCH ×4 (03:16→21:31)
--- NOTE | 2022-12-04 05:31 | PM&R Progress Note ---
Subjective HPI/CC On Admission Date Seen by Provider: December 04, 2022 Time Seen by Provider: 11:30 Subjective/Events-last exam 12/04/2022: Doing really well Gaining function No falls Dyspnea improved No pain 12/03/2022: Doing well Improving with therapy No pain Wound care consulted Review of Systems General: Fatigue, Malaise Objective Exam Vital Signs Vital Signs Date Time Temp Pulse Resp B/P (MAP) Pulse Ox O2 Delivery O2 Flow Rate FiO2 12/05/22 02:40 Nasal Cannula 2.00 12/04/22 21:15 96 12/04/22 20:15 37.4 66 20 108/59 (75) 12/02/22 20:48 Capillary Refill : General Appearance: No Apparent Distress, WD/WN, Chronically ill HEENT: PERRL/EOMI, Normal ENT Inspection, Pharynx Normal Neck: Full Range of Motion, Normal Inspection, Non Tender, Supple, Carotid Bruit Respiratory: Chest Non Tender, No Accessory Muscle Use, No Respiratory Distress, Crackles, Decreased Breath Sounds, Wheezing Cardiovascular: Regular Rate, Rhythm, No Gallop, No JVD, No Murmur, Normal Peripheral Pulses Gastrointestinal: Normal Bowel Sounds, No Organomegaly, No Pulsatile Mass, Non Tender, Soft Back: Normal Inspection, No CVA Tenderness, No Vertebral Tenderness Extremity: Normal Capillary Refill, Normal Inspection, Normal Range of Motion, Non Tender, No Calf Tenderness, Pedal Edema Neurologic/Psychiatric: Alert, Oriented x3, Normal Mood/Affect, order booker II-XII Norm as Tested, Abnormal Gait, Motor Weakness (generalized) Skin: Normal Color, Warm/Dry Lymphatic: No Adenopathy Results/Procedures Lab Patient resulted labs reviewed. FIM Transfers Therapy Code Descriptions/Definitions Functional [place] Measure: 0=Not Assessed/NA 4=Minimal Assistance 1=Total Assistance 5=Supervision or Setup 2=Maximal Assistance 6=Modified [place] 3=Moderate Assistance 7=Complete IndependenceSCALE: Activities may be completed with or without assistive devices. 6-Yzthiazouo-wtrnpth completes the activity by him/herself with no assistance from a helper. 5-Set-up or Clean-up Assistance-helper sets up or cleans up; patient completes activity. [place] assists only prior to or following the activity. 4-Supervision or Touching Assistance-helper provides verbal cues and/or touching/steadying and/or contact guard assistance as patient completes activity. Assistance may be provided throughout the activity or intermittently. 3-Partial/Moderate Assistance-helper does LESS THAN HALF the effort. [place] lifts, holds or supports trunk or limbs, but provides less than half the effort. 2-Substantial/Maximal Assistance-helper does MORE THAN HALF the effort. [place] lifts or holds trunk or limbs and provides more than half the effort. 0-Ripxiqngz-eycloa does ALL the effort. Patient does none of the effort to complete the activity. Or, the assistance of 2 or more helpers is required for the patient to complete the activity. If activity was not attempted, code reason: 7-Patient Refused. 9-Not Applicable-not attempted and the patient did not perform the activity before the current illness, exacerbation or injury. 10-Not Attempted due to Environmental Limitations-(lack of equipment, weather restraints, etc.). 88-Not Attempted due to Medical Conditions or Safety Concerns. Roll Left to Right (QC): 6 Sit to Lying (QC): 6 Sit to Stand (QC): 4 Chair/Olf-wc-Ujrga Xfer(QC): 4 Car Transfer (QC): 4 Gait Training Walk 10 feet (QC): 4 Walk 50 ft with 2 Turns(QC): 4 Walk 150 ft (QC): 4 Walking 10ft/uneven surface-QC: 4 Stair Training 1 Step (curb) (QC): 3 4 Steps (QC): 3 12 Steps (QC): 3 Mental Status/Objective Comprehension: 5 Expression: 6 Social Interaction: 6 Problem Solvin Memory: 5 ADL-Treatment Eating (QC): 6 Oral Hygiene (QC): 6 Shower/Bathe Self (QC): 4 Upper Body Dressing (QC): 5 Lower Body Dressing (QC): 5 On/Off Footwear (QC): 5 Toileting Hygiene (QC): 4 Toilet Transfer (QC): 4 Assessment/Plan Assessment and Plan Assess & Plan/Chief Complaint Assessment: Debility following cardiac arrest 11/06/22 Left sided PTX s/p chest tube now residual SQ emphysema AF HTN HLP COPD DELIA non-compliant with CPAP Plan: PT OT Home meds Monitor closely 12/03/2022: Monitor closely Cardiology consulted 12/04/2022: Monitor closely (1) Respiratory failure Status: Acute TABATHA JOHNSON DO December 04, 2022 05:31
--- NOTE | 2022-12-04 05:31 | Individualized Plan of Care ---
Individualized Plan of Care Rehab Nursing IPOC Order Admission Date December 02, 2022 at 15:30 Current Orders Orders Heart Healthy (12/02/22 Dinner) Admission Order(Inpt,Obs,Sdc) (12/02/22 17:22) Vital Signs: Per Unit Policy ( 08,16,00 (12/02/22 17:22) Rex Calderon 09,21 (12/02/22 17:22) Sequential Compression Device (12/02/22 17:22) Special Education Instructor-Inpt Rehab Con (12/02/22 17:22) Rehab Nursing Orders-Ipoc (12/02/22 17:22) Physical Therapy Rehab Orders (12/02/22 17:22) Occupational Therapy Rehab Ord (12/02/22 17:22) Speech Therapy Rehab Orders (12/02/22:) Cbc With Automated Diff (12/03/22 06:00) Comprehensive Metabolic Panel (12/03/22 06:00) Precautions (Aru) (12/02/22 17:22) Weekly Weight WEEK (12/02/22:22) Rehab-Intensity Of Therapy (12/02/22 17:22) Initiate Admission Nursing Pro .admission (12/02/22 17:22) Alprazolam Tablet (Xanax Tablet) (12/02/22 17:30) Calcium Carbonate Chew Tablet (Antacid C (12/02/22 17:30) Diphenhydramine Tablet (Benadryl Tablet) (12/02/22 17:30) Docusate Sodium Capsule (Colace Capsule) (12/02/22 21:00) Docusate Sodium Capsule (Colace Capsule) (12/02/22 17:30) Bisacodyl Suppository (Dulcolax Supposit (12/02/22 17:30) Lactulose Oral Solution (Enulose Oral So (12/02/22 17:30) Na Phos/Na Biphos Enema (Fleet Enema Marky (12/02/22 17:30) Guaifenesin/Codeine Syrup (Robitussin Ac (12/02/22 17:30) Loperamide Tablet (Imodium Tablet) (12/02/22 17:30) Melatonin Tablet (Melatonin Tablet) (12/02/22 17:30) Polyethylene Glycol Powder Pkt (Miralax (12/02/22 21:00) Ondansetron Oral Dissolve Tab (Zofran (12/02/22 17:30) Senna S Tablet (Senokot S Tablet) (12/02/22 21:00) Acetaminophen Tablet/Caplet (Tylenol T (12/02/22 17:30) Code/Resuscitation (12/02/22 17:22) Initiate Admission Nursing Pro .admission (12/02/22 17:22) Albuterol Pre-Mix Nebs (Rt) (Proventil (12/02/22 17:30) Albuterol Pre-Mix Nebs (Rt) (Proventil (12/02/22 21:00) Albuterol Pre-Mix Nebs (Rt) (Proventil (12/02/22 17:30) Amiodarone Tablet (Cordarone Tablet) (12/03/22 09:00) Apixaban Tablet (Eliquis Tablet) (12/02/22 21:00) Folic Acid Tablet (Folic Acid Tablet) (12/03/22 09:00) Hydrocodone/Apap 10/325 Tablet (Lortab 1 (12/02/22 17:30) Metoprolol Succinate (Xl) Tab (Toprol Xl (12/03/22 09:00) Thiamine Tablet (Vitamin B-1 Tablet) (12/03/22 09:00) (Nf) Tiotropium Br/Olodaterol Hcl (Stiol (12/03/22 09:00) Svn Small Volume Nebulizer (12/02/22 17:24) Svn Small Volume Nebulizer (12/02/22 17:24) Svn Small Volume Nebulizer (12/02/22 17:24) Magnesium Oxide Tablet (Mag Ox Tablet) (12/02/22 21:00) Multivitamins Liquid (Geritol Liquid) (12/03/22 09:00) Folic Acid Tablet (Folic Acid Tablet) (12/03/22 09:00) Albuterol Inhaler (Albuterol) (12/02/22 21:00) Umeclidinium Mina Inhaler (Incruse El (12/03/22 08:00) Saline Nasal [place] ([place] Nasal [place]) (12/02/22 18:30) Lifting Restrictions (12/02/22 19:27) Oxygen Delivery Set Up (12/03/22 02:54) Ekg Tracing (12/03/22 11:00) Patient Visit (12/02/22 ) Pt Eval Moderate Complexity (12/02/22 ) Rt Request For Service (12/03/22 12:25) Incentive Spirometry (Nursing) Q2H (12/03/22 12:25) Consult Wound Care Physician (12/03/22 13:27) Hypochlorous Acid/Sod Chloride (Vashe Wo (12/03/22 13:30) Patient Visit (12/03/22 ) Gait Training, Ea 15 Min (12/03/22 ) Exercise Therap, Ea 15 Min (12/03/22 ) Patient Visit (12/03/22 ) Gait Training, Ea 15 Min (12/03/22 ) Functional Activities, Ea 15 (12/03/22 ) Exercise Therap, Ea 15 Min (12/03/22 ) Hypochlorous Acid/Sod Chloride (Vashe Wo (12/03/22 15:45) Dressing Order (Intervention) DAILY (12/03/22 15:35) Dressing Order (Intervention) BID (12/03/22 15:35) Povidone Iodine 10% Solution (Betadine (12/04/22 09:00) Ensure Hi Protein Variety WM (12/03/22 15:45) Povidone Iodine 10% Ointment (Betadine (12/04/22 21:00) Hypochlorous Acid/Sod Chloride (Vashe Wo (12/05/22 09:00) Povidone Iodine 10% Solution (Betadine (12/04/22 21:00) Furosemide Injection (Lasix Injection) (12/04/22 10:30) Furosemide Tablet (Lasix Tablet) (12/05/22 09:00) Basic Metabolic Panel (12/05/22 05:00) Magnesium (12/05/22 05:00) Chest Pa/Lat (2 View) (12/04/22 10:18) Patient Visit (12/04/22 ) Gait Training, Ea 15 Min (12/04/22 ) Exercise Therap, Ea 15 Min (12/04/22 ) Functional Activities, Ea 15 (12/04/22 ) Patient Visit (12/04/22 ) Exercise Therap, Ea 15 Min (12/04/22 ) Rehab Nursing Orders: Ongoing Assess. of Cognitive Status, Ongoing Assess. of Function Status, Bladder Management, Bladder Scan, Bladder Training, Bowel Management, Bowel Training, Disease Management & Educaiton, DVT Prophylaxis, Fall Prevention, Fluid/Electrolyte/Nutrition Mgmt, Infection Prevention, Medication Management & Education, Management of Risks & Complications, Management of Skin Intergrity, Nutrition Management, Pain Management, Danielle ent/Family Support, Safety Management, Wound Management Intensity of Therapy to be met Patient to be seen: Min.3h per day/5 of 7d PT IPOC Problem List: Activity Tolerance, Functional Strength, Safety, Balance, Gait, Transfer, Bed Mobility, ROM Treatment Plan: Continue Plan of Care Concurrent Therapy, Functional Activity Natalia, Functional Strength, Transfers Treatment Duration: December 16, 2022 Frequency: At least 5 of 7 days/Wk (IRF) Estimated Hrs Per Day: 2 hours per day OT IPOC Problems: Decreased Activ Tolerance, Impaired Self-Care Skills OT Treatment, Training and Edu: Yes Plan of Care: ADL Retraining, Functional Mobility, Group Exercise/Act as Ind, UE Funct Exercise/Act Treatment Duration: December 26, 2022 Frequency: At least 5 of 7 days/Wk (IRF) Estimated Hrs Per Day: 1.[address] IPOC Speech Therapy Treatment Plan: Discontinue ST Treatment Duration: December 04, 2022 Frequency: Modified Program (IRF) Estimated Hrs Per Day: Other Special Education Instructor/Case Mgmt Special Education Instructor/Case Managemen: Discharge Planning Dietitian/Recruitment And Outreach Assistant Dietitian/Recruitment And Outreach Assistant to monitor nutritional status and make changes and/or recommendations as needed and work with speech pathology on dietary upgrades as the occur. Physician IPOC Medical Issues being managed closely and that require the 24 hour availability of a physician: Recent cardiac and respiratory arrest with subsequent rib fractures from CPR and left chest wall wound will require cardiology management and adjustment of meds and high risk for decompensation Medical Issues: Bowel/Bladder Function, DVT Prophylaxis, Falls Precautions, Fluid/Electrolyte/Nutrition Balance, Infection Protection, Pain Management, Wound Care Brief Synthesis of Preadmission Screen, Post-Admission Evaluation, and Therapy Evaluations: PT OT will focus on regaining function and stamina with ambulation and increase ability to return to independent status Medical Prognosis: Good Anticipated Length of Stay: 7 days TABATHA JOHNSON DO December 04, 2022 05:31
[2022-12-04 06:59] VITALS: BP 107/53
[2022-12-04] MEDS: APIXABAN 5 MG (ELIQUIS) TABLET PO SCH ×2 (07:06→21:16)
[2022-12-04] MEDS: SENNA W/DOCUSATE (SENOKOT S) TABLET PO SCH ×3 (07:06→21:16)
[2022-12-04] MEDS: MULTIVITAMINS LIQUID 15 ML UDC PO SCH (07:06)
[2022-12-04] MEDS: FOLIC ACID 1 MG TAB PO SCH (07:07)
[2022-12-04] MEDS: AMIODARONE 200 MG (CORDARONE) TAB PO SCH (07:07)
[2022-12-04] MEDS: THIAMINE 100 MG (VITAMIN B-1) TAB PO SCH (07:07)
[2022-12-04] MEDS: MAGNESIUM OXIDE (MAG-OX)400 MG TAB PO SCH ×2 (07:07→21:16)
[2022-12-04] MEDS: DOCUSATE SODIUM 100 MG (COLACE) CAP PO SCH ×2 (07:07→21:16)
[2022-12-04] MEDS: HYPOCHLOROUS ACID/NaCl (VASHE) 250 ML IR PRN (07:08)
[2022-12-04] MEDS: polyethylene glycoL POWDER 17 GM (MIRALAX) PACK PO SCH ×2 (08:44→21:22)
--- NOTE | 2022-12-04 08:45 | Consultation ---
History of Present Illness History of Present Illness Patient Consulted On(viktor/time) 12/04/22 08:45 Date Seen by Provider: December 04, 2022 Time Seen by Provider: 09:10 Allergies and Home Medications Allergies Coded Allergies: NATALY Inhibitors (Verified Allergy, Unknown, 08/12/19) angioedema Patient Home Medication List Albuterol Sulfate (Ventolin Hfa) 90 Mcg Hfa.aer.ad, 2 PUFF INH Q4H PRN for SHORTNESS OF BREATH, (Reported) Entered as Reported by: CARLO CHOE on 07/16/17 0753 Last Action: Continued Albuterol Sulfate (Albuterol Sulfate) 2.5 Mg/0.5 Ml Vial.neb, 2.5 MG INH Q6H PRN for SHORTNESS OF BREATH, (Reported) Entered as Reported by: YAMILE KRUSE on 09/16/22 1136 Last Action: Continued Albuterol Sulfate (Ventolin Hfa) 90 Mcg Hfa.aer.ad, 2 PUFF INH BID, (Reported) Entered as Reported by: YAMILE KRUSE on 12/02/221612 Last Action: Continued Amiodarone HCl (Amiodarone HCl) 200 Mg Tablet, 200 MG PO DAILY, (Reported) Entered as Reported by: YAMILE KRUSE on 12/02/221612 Last Action: Continued Apixaban (Eliquis) 5 Mg Tablet, 5 MG PO BID, (Reported) Entered as Reported by: YAMILE KRUSE on 12/02/221612 Last Action: Continued Folic Acid (Folic Acid) 1 Mg Tablet, 1 MG PO DAILY, (Reported) Entered as Reported by: YAMILE KRUSE on 12/02/221612 Last Action: Continued Hydrocodone/Acetaminophen (Hydrocodone-Acetamin 10-325 mg) 10 Mg-325 Mg Tablet, 1 EACH PO Q4H PRN for PAIN-MODERATE (5-7), (Reported) Entered as Reported by: YAMILE KRUSE on 12/02/221612 Last Action: Continued Metoprolol Succinate (Metoprolol Succinate) 25 Mg Tab.er.24h, 25 MG PO DAILY, (Reported) Entered as Reported by: YAMILE KRUSE on 12/02/221612 Last Action: Continued Thiamine HCl (Vitamin B-1) 100 Mg Tablet, 100 MG PO DAILY, (Reported) Entered as Reported by: YAMILE KRUSE on 12/02/22 161 Last Action: Continued Tiotropium Br/Olodaterol HCl (Stiolto Respimat Inhal [place]) 2.5 Mcg-2.5 Mcg/Actuation Mist.inhal, 2 PUFF IH DAILY, (Reported) Entered as Reported by: YAMILE KRUSE on 12/02/22 1613 Last Action: Converted Discontinued Medications Amiodarone HCl (Amiodarone HCl) 200 Mg Tablet, 200 MG PO UD Discontinued Reason: No Longer Taking Prescribed by: BJORN HEART on 09/19/22 111 Last Action: Discontinued Apixaban (Eliquis) 5 Mg Tablet, 5 MG PO BID, (Reported) Discontinued Reason: No Longer Taking Entered as Reported by: YAMILE KRUSE on 09/16/22 113 Last Action: Discontinued Apixaban (Eliquis) 5 Mg Tablet, 5 MG PO BID Discontinued Reason: No Longer Taking Prescribed by: BJORN HEART on 09/19/22 111 Last Action: Discontinued Ascorbic Acid/Multivit-Min (Emergen-C 1,000 mg Packet) 1,000 Mg Effpowdpkt, 1,000 MG PO DAILY, (Reported) Discontinued Reason: No Longer Taking Entered as Reported by: CARLO CHOE on 07/16/17 0906 Last Action: Discontinued Digoxin (Digoxin) 250 Mcg (0.25 Mg) Tablet, 250 MCG PO 1800, (Reported) Discontinued Reason: No Longer Taking Entered as Reported by: YAMILE KRUSE on 09/16/22 112 Last Action: Discontinued Diltiazem HCl (Diltiazem 24Hr ER) 240 Mg Cap.er.24h, 240 MG PO DAILY Discontinued Reason: No Longer Taking Prescribed by: TABATHA JOHNSON on 09/19/22 1124 Last Action: Discontinued Prednisone (Prednisone) 10 Mg Tab, MG PO DAILY, (Reported) Discontinued Reason: No Longer Taking Entered as Reported by: YAMILE KRUSE on 09/16/221125 Last Action: Discontinued Past Xhzhvqc-Kuxdtx-Kzwmgb Hx Patient Social History Marrital Status: Employed/Student: retired Tobacco Use?: Yes Tobacco type used: Cigarettes Smoking Status: Former Smoker (quit 1 year ago) Substance use?: No Alcohol Use?: Yes Alcohol type: Beer Alcohol Frequency: Daily Pt feels they are or have been: No Immunizations Up To Date Date of Influenza Vaccine: May 25, 2015 First/Initial COVID19 Vaccinat: MANUELA Second COVID19 Vaccination Viktor: MANUELA Hepatitis A: No Hepatitis B: No Date of Pneumonia Vaccine: May 25, 2015 Seasonal Allergies Seasonal Allergies: No Current Status Advance Directives: No Communicates: Verbally Primary Language: Jamaican Preferred Spoken Language: Jamaican Is interpretation needed?: No Implanted or Applied Medical D: None Past Medical History Surgeries: Cardiac, Orthopedic Pneumonia, Sleep Apnea, COPD Currently Using CPAP: No (DOESN'T WEAR) Atrial Fibrillation, Hypertension Sexually Transmitted Disease: No HIV/AIDS: No Gout Loss of Vision: Denies Blood Disorders: No Adverse Reaction/Blood Tranf: No Family Medical History Cardiovascular disease G8 BROTHER Hypertension G8 BROTHER Heart Disease, Diabetes, Hypertension Review of Systems Review of Systems General: Fatigue, Malaise Cardiovascular: Chest Pain (chest wall) All Other Systems Reviewed All Other Systems Reviewed: Yes Physical Exam Vital Signs Vital Signs - First Documented 12/02/22 15:30 Temp 36.4 Pulse 58 Resp 20 B/P (MAP) 110/61 (77) Pulse Ox 94 O2 Delivery Nasal Cannula O2 Flow Rate 3.00 Capillary Refill : Height, Weight, BMI Height: 5'10.00" Weight: 211lbs. 3.0oz. 95.112578js; 27.36 BMI Method:Stated KEHINDE MADSEN MD December 04, 2022 08:45
[2022-12-04] MEDS ORDERED: POVIDONE (BETADINE) 10% SOLN 240 ML BTL TOP SCH (09:00)
[2022-12-04] MEDS: UMECLIDINIUM BROMIDE (INCRUSE ELLIPTA) 7'S IH SCH (09:22)
--- NOTE | 2022-12-04 09:22 | Physical Therapy Daily Note ---
PT Daily Note-Current Subjective Pt in recliner upon arrival. pt pt willing for therapy. pt stated he chest felt heavy with 3/10 pain. nursing was notified and was then assessed by nursing. pt did stated his calfs were both tight and the lower half of both legs were tingly. no pain in BLE noted. pt was able to be more self aware of SOB and does preform breathing tch and energy conservation tech when fatigued or SOB. O2 was WFL at all times and checked after each new activity. PT states he is finalliy realizing how much his endurance has dissipated during his recent hospital stay and the recovery time may no t be as quick as he anticipated. . pt was left in room in recliner with call light and all needs met visiting with DR Nicolas. Pain Section J - Health Conditions 1. Rarely or not at all 2. Occasionally 3. Frequently 4. Almost constantly 8. Unable to answer Pain Effect on Sleep: 0 Pain Interference with Therapy: 0 Pain Interference w/Day-to-Day: 0 Mental Status Patient Orientation: Person, Place, Time, Situation Transfers SCALE: Activities may be completed with or without assistive devices. 5-Fvnlvukmcx-mijgdtf completes the activity by him/herself with no assistance from a helper. 5-Set-up or Clean-up Assistance-helper sets up or cleans up; patient completes activity. [place] assists only prior to or following the activity. 4-Supervision or Touching Assistance-helper provides verbal cues and/or touching/steadying and/or contact guard assistance as patient completes activity. Assistance may be provided throughout the activity or intermittently. 3-Partial/Moderate Assistance-helper does LESS THAN HALF the effort. [place] lifts, holds or supports trunk or limbs, but provides less than half the effort. 2-Substantial/Maximal Assistance-helper does MORE THAN HALF the effort. [place] lifts or holds trunk or limbs and provides more than half the effort. 8-Hlzojoplq-vywxhy does ALL the effort. Patient does none of the effort to complete the activity. Or, the assistance of 2 or more helpers is required for the patient to complete the activity. If activity was not attempted, code reason: 7-Patient Refused. 9-Not Applicable-not attempted and the patient did not perform the activity before the current illness, exacerbation or injury. 10-Not Attempted due to Environmental Limitations-(lack of equipment, weather restraints, etc.). 88-Not Attempted due to Medical Conditions or Safety Concerns. Exercises Seated Therapy Exercises: Sit to stand, Long arc quads, Hip flexion, Hamstring Curls, Glut set Standing: Mini squats, Sit to Stand, Step-ups NuStep Minutes: 3 Treatments Pt is able to ambulate 75ft with RW to therapy gym and requires sitting rest for SOB. pt is able to preform sitting ther-ex in all planes of motion available with BLE for 2 sets of 20 with rest in between each set secondary to SOB. Pt is able to execute standing marching and step up to curb for 20 reps at a time for 2 sets with rest of aprox 2-3 min in between for SOB. Pt was able to ride Nu- Step for 1:48 min before getting SOB, and after 2-3 min rest is able to resume for a total of 3 min at lever 1 work load. Pt ambulated 75ft back to room and is able to walk from recliner to bathroom managing O2 tubing safely with no LOB. 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 Goals Longterm Goals PT Framing Mill Operator Helper Goals Time Frame: December 16, 2022 Roll Left & Right (QC): 6 Sit to Lying (QC): 6 Lying-Sitting on Side/Bed(QC): 6 Sit to Stand (QC): 6 Chair/Lgv-sk-Qfjpi Xfer(QC): 6 Toilet Transfer (QC): 6 Car Transfer (QC): 6 Does the Patient Walk: Yes Walk 10 feet (QC): 6 Walk 50ft with 2 Turns (QC): 6 Walk 150 ft (QC): 6 Walking 10ft on Uneven Surface: 6 1 Step (curb) (QC): 6 4 Steps (QC): 6 12 Steps (QC): 6 Picking up an Object (QC): 6 Wheel 50 feet with 2 turns (QC: 9 Wheel 150 feet: 9 PT Plan Problem List Problem List: Activity Tolerance Treatment/Plan Treatment Plan: Continue Plan of Care Treatment Duration: December 16, 2022 Frequency: At least 5 of 7 days/Wk (IRF) Time Time In: 814 Time Out: 914 DATE: December 04, 2022 Total Billed Treatment Time: 60 Total Billed Treatment 1 GT EX x 2 FA Cathy Hicks ALODIZE MACHINE OPERATOR December 04, 2022 09:22
[2022-12-04] MEDS ORDERED: FUROSEMIDE 40 MG/4 ML INJ (LASIX) IVP NR (10:30)
--- NOTE | 2022-12-04 10:54 | Occupational Ther Daily Note ---
OT Current Status-Daily Note Subjective Pt alert, sitting in recliner. Pt agrees to therapy. No c/o pain. Pt takes increased time to complete all tasks due to SOA and lengthy recovery breaks. Mental Status/Objective Patient Orientation: Person, Place, Time, Situation Attachments: Oxygen (2.5L) ADL-Treatment Independent with toileting. Independent with oral care sitting at sink. Set up for UBD. Pt ambulates to/from areas using FWW with SBA and assist to manipulate O2 tubing. Therapy Code Descriptions/Definitions Functional [place] Measure: 0=Not Assessed/NA 4=Minimal Assistance 1=Total Assistance 5=Supervision or Setup 2=Maximal Assistance 6=Modified [place] 3=Moderate Assistance 7=Complete IndependenceSCALE: Activities may be completed with or without assistive devices. 7-Gosntntlxm-zbyynmz completes the activity by him/herself with no assistance from a helper. 5-Set-up or Clean-up Assistance-helper sets up or cleans up; patient completes activity. [place] assists only prior to or following the activity. 4-Supervision or Touching Assistance-helper provides verbal cues and/or touching/steadying and/or contact guard assistance as patient completes activity. Assistance may be provided throughout the activity or intermittently. 3-Partial/Moderate Assistance-helper does LESS THAN HALF the effort. [place] lifts, holds or supports trunk or limbs, but provides less than half the effort. 2-Substantial/Maximal Assistance-helper does MORE THAN HALF the effort. [place] lifts or holds trunk or limbs and provides more than half the effort. 6-Fqswxvohn-yimjgo does ALL the effort. Patient does none of the effort to complete the activity. Or, the assistance of 2 or more helpers is required for the patient to complete the activity. If activity was not attempted, code reason: 7-Patient Refused. 9-Not Applicable-not attempted and the patient did not perform the activity before the current illness, exacerbation or injury. 10-Not Attempted due to Environmental Limitations-(lack of equipment, weather restraints, etc.). 88-Not Attempted due to Medical Conditions or Safety Concerns. Other Treatment Pt completed arm bike for 8 min at 15 mejía resistance to increase strength and activity tolerance for daily functional tasks. After session, pt left in care of x-ray tech. All needs met in room. OT Short Term Goals Short Term Goals Time Frame: December 12, 2022 Shower/bathe self: 5 Lower body dressin Putting on/taking off footwear: 5 OT Custodial Goals Custodial Goals Time Frame: December 26, 2022 Acute change in mental status: 0 Inattention: 0 Disorganized thinkin Altered level of consciousness: 0 Eating (QC): 6 Oral Hygiene (QC): 6 Toileting Hygiene (QC): 6 Shower/Bathe Self (QC): 6 Upper Body Dressing (QC): 6 Lower Body Dressing (QC): 6 On/Off Footwear (QC): 6 Additional Goals: 1-Demonstrate ADL Tasks, 2-Verbalize Understanding, 3- ImproveStrength/Natalia 1=Demonstrate adherence to instructed precautions during ADL tasks. 2=Patient will verbalize/demonstrate understanding of assistive devices/modific ations for ADL. 3=Patient will improve strength/tolerance for activity to enable patient to perform ADL's. OT Education/Plan Problem List/Assessment Assessment: Decreased Activ Tolerance, Impaired Self-Care Skills Discharge Recommendations Plan/Recommendations: Continue POC Treatment Plan/Plan of Care Patient would benefit from OT for education, treatment and training to promote independence in ADL's, mobility, safety and/or upper extremity function for ADL's. Plan of Care: ADL Retraining, Functional Mobility, Group Exercise/Act as Ind, UE Funct Exercise/Act Treatment Duration: December 26, 2022 Frequency: At least 5 of 7 days/Wk (IRF) Estimated Hrs Per Day: 1.5 hours per day Agreement: Yes Rehab Potential: Good Time Start Time: 09:45 Stop Time: 10:45 DATE: December 04, 2022 Total Time Billed (hr/min): 60 Billed Treatment Time 1 visit-ADL 3 (45 min) EX 1 (15 min) MELISSA PEREZ December 04, 2022 10:54
--- NOTE | 2022-12-04 13:29 | Progress Note - Cardiology ---
Cardiology SOAP Progress Note Subjective: More short of breath this am along with a feeling of vague, mild discomfort of the chest (no radiation, continuous, better with supple oxygen) No n/v/d No focal weakness Gen weakness, sergio of both legs Mild swelling of both legs Objective: I&O/Vital Signs 12/04/22 12/04/22 12/04/22 12/04/22 03:16 06:59 09:25 09:29 Temp 36.6 Pulse 58 Resp 20 B/P (MAP) 107/53 (71) Pulse Ox 92 96 93 93 O2 Delivery Nasal Cannula Nasal Cannula Nasal Cannula O2 Flow Rate 2.50 2.50 2.50 12/04/22 09:52 O2 Delivery Nasal Cannula O2 Flow Rate 2.50 12/04/22 00:00 Intake Total 600 ml Balance 600 ml Weight (Pounds): 211 Weight (Ounces): 3.0 Weight (Calculated Kilograms): [id number] Constitutional: AAO x 3, well-developed, well-nourished Respiratory: No accessory muscle use; chest expansion is symmetric, chest is bilaterally symmetric, other (fair to good, bilateral air entry; bibasilar crack les) Cardiovascular: irregularly irregular, S1 and S2, systolic murmur (soft RAYSHAWN at card base) Gastrointestional: No tender; soft; No guarding, No rebound; audible bowel sounds Extremities: swelling (mild, bilateral leg swelling); No clubbing, No cyanosis Neurologic/Psychiatric: oriented x 3, other (moves all limbs) Skin: normal color, warm/dry; No cyanosis, No cool, No diaphoresis, No rash on exposed areas, No ulcerations on exposed areas A/P: Assessment: Ac resp failure (and transient PEA) due to spontaneous L pneumothorax due to ruptured bleb (treated at [facility] in ) Ac CHF of undetermined etiology, mild PAF, currently NSR with PACs Ch COPD H/o heavy EtOH use H/o NICD bu techo at [facility], is reported to have shown normal LVEF (Dr Rizzo,s note of 11/29/22) H/o DELIA Plan: * Add diuretic * Continue amio, bb, OAC * Monitor labs closely * Echo NADIR ORTEGA MD FACP FAC CCDS December 04, 2022 13:29
--- NOTE | 2022-12-04 13:34 | Occupational Ther Daily Note ---
OT Current Status-Daily Note Subjective Pt alert, sitting in recliner. and visitors in room. Pt agrees to therapy. No c/o pain at this time. Mental Status/Objective Patient Orientation: Person, Place, Time, Situation ADL-Treatment Independent with toileting and toilet transfer. Therapy Code Descriptions/Definitions Functional [place] Measure: 0=Not Assessed/NA 4=Minimal Assistance 1=Total Assistance 5=Supervision or Setup 2=Maximal Assistance 6=Modified [place] 3=Moderate Assistance 7=Complete IndependenceSCALE: Activities may be completed with or without assistive devices. 4-Tncynnqhms-rwhftiz completes the activity by him/herself with no assistance from a helper. 5-Set-up or Clean-up Assistance-helper sets up or cleans up; patient completes activity. [place] assists only prior to or following the activity. 4-Supervision or Touching Assistance-helper provides verbal cues and/or touching/steadying and/or contact guard assistance as patient completes activity. Assistance may be provided throughout the activity or intermittently. 3-Partial/Moderate Assistance-helper does LESS THAN HALF the effort. [place] lifts, holds or supports trunk or limbs, but provides less than half the effort. 2-Substantial/Maximal Assistance-helper does MORE THAN HALF the effort. [place] lifts or holds trunk or limbs and provides more than half the effort. 6-Vmruvipqd-njnofb does ALL the effort. Patient does none of the effort to complete the activity. Or, the assistance of 2 or more helpers is required for the patient to complete the activity. If activity was not attempted, code reason: 7-Patient Refused. 9-Not Applicable-not attempted and the patient did not perform the activity before the current illness, exacerbation or injury. 10-Not Attempted due to Environmental Limitations-(lack of equipment, weather restraints, etc.). 88-Not Attempted due to Medical Conditions or Safety Concerns. Toileting Hygiene (QC): 6 Toilet Transfer (QC): 6 Other Treatment Pt completed B UE theraband exercises to increase strength and stamina for daily functional tasks. Pt completed 1 set 12 reps of 5 exercises with significant recovery breaks. After session, pt sitting in recliner with call light/phone in reach. All needs met in room. OT Short Term Goals Short Term Goals Time Frame: December 12, 2022 Shower/bathe self: 5 Lower body dressin Putting on/taking off footwear: 5 OT X Ray Physician Goals [facility] Goals Time Frame: December 26, 2022 Acute change in mental status: 0 Inattention: 0 Disorganized thinkin Altered level of consciousness: 0 Eating (QC): 6 Oral Hygiene (QC): 6 Toileting Hygiene (QC): 6 Shower/Bathe Self (QC): 6 Upper Body Dressing (QC): 6 Lower Body Dressing (QC): 6 On/Off Footwear (QC): 6 Additional Goals: 1-Demonstrate ADL Tasks, 2-Verbalize Understanding, 3- ImproveStrength/Natalia 1=Demonstrate adherence to instructed precautions during ADL tasks. 2=Patient will verbalize/demonstrate understanding of assistive devices/modifications for ADL. 3=Patient will improve strength/tolerance for activity to enable patient to perform ADL's. OT Education/Plan Problem List/Assessment Assessment: Decreased Activ Tolerance, Decreased UE Strength Discharge Recommendations Plan/Recommendations: Continue POC Treatment Plan/Plan of Care Patient would benefit from OT for education, treatment and training to promote independence in ADL's, mobility, safety and/or upper extremity function for ADL's. Plan of Care: ADL Retraining, Functional Mobility, Group Exercise/Act as Ind, UE Funct Exercise/Act Treatment Duration: December 26, 2022 Frequency: At least 5 of 7 days/Wk (IRF) Estimated Hrs Per Day: 1.5 hours per day Agreement: Yes Rehab Potential: Good Time Start Time: 13:00 Stop Time: 13:30 DATE: December 04, 2022 Total Time Billed (hr/min): 30 Billed Treatment Time 1 visit-ADL 1 (20 min) EX 1 (10 min) MELISSA PEREZ December 04, 2022 13:34
--- NOTE | 2022-12-04 14:27 | Physical Therapy Daily Note ---
PT Daily Note-Current Subjective Pt in recliner upon arrival and willing for therapy. pt stated Dr. Maravilla has given him Lasix and he has since peed 6 times since and requested to stay close to the bathroom. pt left n recliner with call light and all needs met at the end of therapy session, Pain Section J - Health Conditions 1. Rarely or not at all 2. Occasionally 3. Frequently 4. Almost constantly 8. Unable to answer Pain Effect on Sleep: 0 Pain Interference with Therapy: 0 Pain Interference w/Day-to-Day: 0 Transfers SCALE: Activities may be completed with or without assistive devices. 7-Izhiciuuui-bbjpaxi completes the activity by him/herself with no assistance from a helper. 5-Set-up or Clean-up Assistance-helper sets up or cleans up; patient completes activity. [place] assists only prior to or following the activity. 4-Supervision or Touching Assistance-helper provides verbal cues and/or touching/steadying and/or contact guard assistance as patient completes activity. Assistance may be provided throughout the activity or intermittently. 3-Partial/Moderate Assistance-helper does LESS THAN HALF the effort. [place] lifts, holds or supports trunk or limbs, but provides less than half the effort. 2-Substantial/Maximal Assistance-helper does MORE THAN HALF the effort. [place] lifts or holds trunk or limbs and provides more than half the effort. 3-Wydjuqkcp-szkduh does ALL the effort. Patient does none of the effort to complete the activity. Or, the assistance of 2 or more helpers is required for the patient to complete the activity. If activity was not attempted, code reason: 7-Patient Refused. 9-Not Applicable-not attempted and the patient did not perform the activity before the current illness, exacerbation or injury. 10-Not Attempted due to Environmental Limitations-(lack of equipment, weather restraints, etc.). 88-Not Attempted due to Medical Conditions or Safety Concerns. Exercises Seated Therapy Exercises: Ankle pumps, Sit to stand, Long arc quads, Hamstring Curls, Glut set Standing: Marching, Mini squats, Sit to Stand Treatments Pt preformed sitting and standing ther-ex in all planes of motion available with BLE. pt is able to preform such with green thera-band for increased resistance and mm building. pt is able to preform 3 sets x 20 sitting and 2 sets x 20 standing. pt was able to exicute a 54 sec standing marching holding onto RW before fatiguing with SOB presents. O2 was WFL and with pursed lip breathing pt is able to resume normal breathing in aporx 1-2 minutes. . PT Mcfp Goals Mcfp Goals PT Home Health Care Provider Goals Time Frame: December 16, 2022 Roll Left & Right (QC): 6 Sit to Lying (QC): 6 Lying-Sitting on Side/Bed(QC): 6 Sit to Stand (QC): 6 Chair/Flt-iq-Inrcy Xfer(QC): 6 Toilet Transfer (QC): 6 Car Transfer (QC): 6 Does the Patient Walk: Yes Walk 10 feet (QC): 6 Walk 50ft with 2 Turns (QC): 6 Walk 150 ft (QC): 6 Walking 10ft on Uneven Surface: 6 1 Step (curb) (QC): 6 4 Steps (QC): 6 12 Steps (QC): 6 Picking up an Object (QC): 6 Wheel 50 feet with 2 turns (QC: 9 Wheel 150 feet: 9 PT Plan Treatment/Plan Treatment Plan: Continue Plan of Care Treatment Duration: December 16, 2022 Frequency: At least 5 of 7 days/Wk (IRF) Time Time In: 1336 Time Out: 1406 DATE: December 04, 2022 Total Billed Treatment Time: 30 Total Billed Treatment 1 EX x 2 Cathy Hicks CALCULATING MACHINE OPERATOR December 04, 2022 14:26
--- NOTE | 2022-12-04 14:32 | Diagnostic Imaging Report ---
EXAMINATION: Chest 2 view HISTORY: Abnormal lung sounds. COMPARISON: 08/06/2018. FINDINGS: Heart size and pulmonary vasculature are normal. There are trace bilateral pleural effusions or pleural thickening. No consolidation or pneumothorax. Degenerative changes of the thoracic spine. Osseous structures are otherwise intact. Chronic right rib deformities. IMPRESSION: 1. No acute radiographic abnormality in the chest. Dictated by: Dictated on workstation # [id number]
[2022-12-04 20:15] VITALS: BP 108/59
[2022-12-04] MEDS ORDERED: POVIDONE (BETADINE) 10% OINT 30 GM TUBE TOP SCH (21:00)
[2022-12-04] MEDS: POVIDONE (BETADINE) 10% SOLN 240 ML BTL TOP SCH (21:17)
[2022-12-05] MEDS: RT-ALBUTEROL HFA 8.5 GM INHALER IH SCH ×4 (02:40→21:09)
[2022-12-05 05:34] LABS: CALCIUM 7.9 MG/DL (8.5-10.1); CREATININE SERUM 0.79 MG/DL (0.60-1.30); MAGNESIUM 1.9 MG/DL (1.6-2.4); POTASSIUM 3.7 MMOL/L (3.6-5.0)
--- NOTE | 2022-12-05 06:27 | PM&R Progress Note ---
Subjective HPI/CC On Admission Date Seen by Provider: December 05, 2022 Time Seen by Provider: 11:30 Subjective/Events-last exam 12/05/2022: Patient doing well Focused on BM this am No pain reported Less dyspnea 12/04/2022: Doing really well Gaining function No falls Dyspnea improved No pain 12/03/2022: Doing well Improving with therapy No pain Wound care consulted Review of Systems General: Fatigue, Malaise Objective Exam Vital Signs Vital Signs Date Time Temp Pulse Resp B/P (MAP) Pulse Ox O2 Delivery O2 Flow Rate FiO2 12/05/22 21:07 96 Nasal Cannula 2.00 12/05/22 19:10 36.8 60 20 107/59 (75) 12/02/22 20:48 Capillary Refill : General Appearance: No Apparent Distress, WD/WN, Chronically ill HEENT: PERRL/EOMI, Normal ENT Inspection, Pharynx Normal Neck: Full Range of Motion, Normal Inspection, Non Tender, Supple, Carotid Bruit Respiratory: Chest Non Tender, No Accessory Muscle Use, No Respiratory Distress , Crackles, Decreased Breath Sounds, Wheezing Cardiovascular: Regular Rate, Rhythm, No Gallop, No JVD, No Murmur, Normal Peripheral Pulses Gastrointestinal: Normal Bowel Sounds, No Organomegaly, No Pulsatile Mass, Non Tender, Soft Back: Normal Inspection, No CVA Tenderness, No Vertebral Tenderness Extremity: Normal Capillary Refill, Normal Inspection, Normal Range of Motion, Non Tender, No Calf Tenderness, Pedal Edema Neurologic/Psychiatric: Alert, Oriented x3, Normal Mood/Affect, manager stone II-XII Norm as Tested, Abnormal Gait, Motor Weakness (generalized) Skin: Normal Color, Warm/Dry Lymphatic: No Adenopathy Results/Procedures Lab Laboratory Tests 12/05/22 05:01 Patient resulted labs reviewed. FIM Transfers Therapy Code Descriptions/Definitions Functional [place] Measure: 0=Not Assessed/NA 4=Minimal Assistance 1=Total Assistance 5=Supervision or Setup 2=Maximal Assistance 6=Modified [place] 3=Moderate Assistance 7=Complete IndependenceSCALE: Activities may be completed with or without assistive devices. 8-Kgslhjirbb-noejhia completes the activity by him/herself with no assistance from a helper. 5-Set-up or Clean-up Assistance-helper sets up or cleans up; patient completes activity. [place] assists only prior to or following the activity. 4-Supervision or Touching Assistance-helper provides verbal cues and/or touching/steadying and/or contact guard assistance as patient completes activity. Assistance may be provided throughout the activity or intermittently. 3-Partial/Moderate Assistance-helper does LESS THAN HALF the effort. [place] li fts, holds or supports trunk or limbs, but provides less than half the effort. 2-Substantial/Maximal Assistance-helper does MORE THAN HALF the effort. [place] lifts or holds trunk or limbs and provides more than half the effort. 2-Pnygnfcvh-ocruuw does ALL the effort. Patient does none of the effort to complete the activity. Or, the assistance of 2 or more helpers is required for the patient to complete the activity. If activity was not attempted, code reason: 7-Patient Refused. 9-Not Applicable-not attempted and the patient did not perform the activity before the current illness, exacerbation or injury. 10-Not Attempted due to Environmental Limitations-(lack of equipment, weather restraints, etc.). 88-Not Attempted due to Medical Conditions or Safety Concerns. Roll Left to Right (QC): 6 Sit to Lying (QC): 6 Sit to Stand (QC): 4 Chair/Vgj-jq-Beeep Xfer(QC): 4 Car Transfer (QC): 4 Gait Training Walk 10 feet (QC): 4 Walk 50 ft with 2 Turns(QC): 4 Walk 150 ft (QC): 4 Walking 10ft/uneven surface-QC: 4 Stair Training 1 Step (curb) (QC): 3 4 Steps (QC): 3 12 Steps (QC): 3 Mental Status/Objective Comprehension: 5 Expression: 6 Social Interaction: 6 Problem Solvin Memory: 5 ADL-Treatment Eating (QC): 6 Oral Hygiene (QC): 6 Shower/Bathe Self (QC): 4 Upper Body Dressing (QC): 5 Lower Body Dressing (QC): 5 On/Off Footwear (QC): 5 Toileting Hygiene (QC): 6 Toilet Transfer (QC): 6 Assessment/Plan Assessment and Plan Assess & Plan/Chief Complaint Assessment: Debility following cardiac arrest 11/06/22 Left sided PTX s/p chest tube now residual SQ emphysema AF HTN HLP COPD DELIA non-compliant with CPAP Plan: PT OT Home meds Monitor closely 12/03/2022: Monitor closely Cardiology consulted 12/04/2022: Monitor closely 12/05/2022: CXR ok Use IS Nebs (1) Respiratory failure Status: Acute TABATHA JOHNSON DO December 05, 2022 06:27
[2022-12-05 07:51] VITALS: BP 119/59
[2022-12-05 08:11] VITALS: BP 119/59
[2022-12-05] MEDS: APIXABAN 5 MG (ELIQUIS) TABLET PO SCH ×2 (08:42→20:09)
[2022-12-05] MEDS: MAGNESIUM OXIDE (MAG-OX)400 MG TAB PO SCH ×2 (08:42→20:09)
[2022-12-05] MEDS: THIAMINE 100 MG (VITAMIN B-1) TAB PO SCH (08:42)
[2022-12-05] MEDS: FOLIC ACID 1 MG TAB PO SCH (08:42)
[2022-12-05] MEDS: MULTIVITAMINS LIQUID 15 ML UDC PO SCH (08:42)
[2022-12-05] MEDS: AMIODARONE 200 MG (CORDARONE) TAB PO SCH (08:42)
[2022-12-05] MEDS: SENNA W/DOCUSATE (SENOKOT S) TABLET PO SCH ×2 (08:42→20:34)
[2022-12-05] MEDS: DOCUSATE SODIUM 100 MG (COLACE) CAP PO SCH ×2 (08:42→20:34)
--- NOTE | 2022-12-05 08:58 | Progress Note - Cardiology ---
Cardiology SOAP Progress Note Objective: I&O/Vital Signs 12/08/22 12/08/22 03:30 08:20 Resp 20 B/P (MAP) 115/52 (73) Pulse Ox 94 95 O2 Delivery Nasal Cannula Nasal Cannula O2 Flow Rate 2.50 2.50 12/07/22 23:59 Intake Total 880 ml Output Total 7 ml Balance 873 ml Weight (Pounds): 211 Weight (Ounces): 3.0 Weight (Calculated Kilograms): 95.079580 Constitutional: AAO x 3, well-developed, well-nourished Respiratory: No accessory muscle use; chest expansion is symmetric, chest is bilaterally symmetric, other (fair to good, bilateral air entry; bibasilar crackles) Cardiovascular: irregularly irregular, S1 and S2, systolic murmur (soft RAYSHAWN at card base) Gastrointestional: No tender; soft; No guarding, No rebound; audible bowel sounds Extremities: swelling (mild, bilateral leg swelling); No clubbing, No cyanosis Neurologic/Psychiatric: oriented x 3, other (moves all limbs) Skin: normal color, warm/dry; No cyanosis, No cool, No diaphoresis, No rash on exposed areas, No ulcerations on exposed areas Results/Procedures: Labs Laboratory Tests 12/08/22 07:10: White Blood Count 10.3, Red Blood Count 2.97L, Hemoglobin 9.8L, Hematocrit 30L, Mean Corpuscular Volume 99, Mean Corpuscular Hemoglobin 33, Mean Corpuscular Hemoglobin Concent 33, Red Cell Distribution Width 12.7, Platelet Count 200, Mean Platelet Volume 10.1, Immature Granulocyte % (Auto) 1, Neutrophils (%) (Auto) 70, Lymphocytes (%) (Auto) 12, Monocytes (%) (Auto) 8, Eosinophils (%) (Auto) 8, Basophils (%) (Auto) 1, Neutrophils # (Auto) 7.3, Lymphocytes # (Auto) 1.3, Monocytes # (Auto) 0.8, Eosinophils # (Auto) 0.9H, Basophils # (Auto) 0.1, Immature Granulocyte # (Auto) 0.1, Sodium Level 138, Potassium Level 4.0, Chloride Level 93L, Carbon Dioxide Level 32, Anion Gap 13, Blood Urea Nitrogen 11, Creatinine 0.82, Estimat Glomerular Filtration Rate 97, BUN/Creatinine Ratio 13, Glucose Level 100, Calcium Level 8.6, Corrected Calcium 9.3, Total Bilirubin 0.5, Aspartate Amino Transf (AST/SGOT) 18, Alanine Aminotransferase (ALT/SGPT) 29, Alkaline Phosphatase 116, Total Protein 6.0L, Albumin 3.1L A/P: Assessment: Ac resp failure (and transient PEA) due to spontaneous L pneumothorax due to ruptured bleb (treated at [facility] in ) Ac CHF of undetermined etiology, mild PAF, currently NSR with PACs Ch COPD H/o heavy EtOH use H/o NICD bu techo at [facility], is reported to have shown normal LVEF (Dr Rizzo,s note of 11/29/22) H/o DELIA Plan: * Continue diuretic * Continue amio, bb, OAC * Monitor labs closely * Echo pending JOE BRAVO December 05, 2022 08:58
[2022-12-05] MEDS ORDERED: FUROSEMIDE 40 MG (LASIX) TAB PO SCH (09:00)
[2022-12-05] MEDS: UMECLIDINIUM BROMIDE (INCRUSE ELLIPTA) 7'S IH SCH (10:48)
--- NOTE | 2022-12-05 11:56 | Occupational Ther Daily Note ---
OT Current Status-Daily Note Subjective Pt alert, sitting in recliner. Pt agrees to therapy. No c/o pain at this time. Pt stated that he took medicine for bowel movement and wants to stay close to toilet, wait for shower until he has BM. Mental Status/Objective Patient Orientation: Person, Place, Time, Situation Attachments: Oxygen (2L) ADL-Treatment Pt independent with toileting, toilet transfer, oral care and grooming. Pt is able to move safely around room using FWW and managing O2 tubing. Therapy Code Descriptions/Definitions Functional [place] Measure: 0=Not Assessed/NA 4=Minimal Assistance 1=Total Assistance 5=Supervision or Setup 2=Maximal Assistance 6=Modified [place] 3=Moderate Assistance 7=Complete IndependenceSCALE: Activities may be completed with or without assistive devices. 7-Yeecqbhqxm-gxvgtpj completes the activity by him/herself with no assistance from a helper. 5-Set-up or Clean-up Assistance-helper sets up or cleans up; patient completes activity. [place] assists only prior to or following the activity. 4-Supervision or Touching Assistance-helper provides verbal cues and/or touching/steadying and/or contact guard assistance as patient completes activity. Assistance may be provided throughout the activity or intermittently. 3-Partial/Moderate Assistance-helper does LESS THAN HALF the effort. [place] lifts, holds or supports trunk or limbs, but provides less than half the effort. 2-Substantial/Maximal Assistance-helper does MORE THAN HALF the effort. [place] lifts or holds trunk or limbs and provides more than half the effort. 7-Thtzmvqtz-jftrgm does ALL the effort. Patient does none of the effort to complete the activity. Or, the assistance of 2 or more helpers is required for the patient to complete the activity. If activity was not attempted, code reason: 7-Patient Refused. 9-Not Applicable-not attempted and the patient did not perform the activity before the current illness, exacerbation or injury. 10-Not Attempted due to Environmental Limitations-(lack of equipment, weather restraints, etc.). 88-Not Attempted due to Medical Conditions or Safety Concerns. Oral Hygiene (QC): 6 Toileting Hygiene (QC): 6 Toilet Transfer (QC): 6 Other Treatment Pt completed B UE exercises to increase strength and stamina for B UE's. Skilled instruction for correct technique and modifications when necessary. 1# wt attached to wrists when completing resistive clothespins. Using 3# wt, pt able to complete 7 B UE exercises 2 sets 15 reps with recovery break between each set each exercise. Theraputty completed to work on dexterity, coordination and fine motor strength. Putty and 3# wt left in room for pt to use throughout weekend. After session, pt sitting in recliner with call light/phone in reach. All needs met in room. Education OT Patient Education: Exercise program Teaching Recipient: Patient Teaching Methods: Demonstration, Discussion Response to Teaching: Verbalize Understanding, Return Demonstration OT Short Term Goals Short Term Goals Time Frame: December 12, 2022 Shower/bathe self: 5 Lower body dressin Putting on/taking off footwear: 5 OT Aoc Director Intelligence Officer Goals Nursing Home Goals Time Frame: December 26, 2022 Acute change in mental status: 0 Inattention: 0 Disorganized thinkin Altered level of consciousness: 0 Eating (QC): 6 Oral Hygiene (QC): 6 Toileting Hygiene (QC): 6 Shower/Bathe Self (QC): 6 Upper Body Dressing (QC): 6 Lower Body Dressing (QC): 6 On/Off Footwear (QC): 6 Additional Goals: 1-Demonstrate ADL Tasks, 2-Verbalize Understanding, 3- ImproveStrength/Natalia 1=Demonstrate adherence to instructed precautions during ADL tasks. 2=Patient will verbalize/demonstrate understanding of assistive devices/modifications for ADL. 3=Patient will improve strength/tolerance for activity to enable patient to perform ADL's. OT Education/Plan Problem List/Assessment Assessment: Decreased Activ Tolerance, Decreased UE Strength, Impaired Self- Care Skills Discharge Recommendations Plan/Recommendations: Continue POC Treatment Plan/Plan of Care Patient would benefit from OT for education, treatment and training to promote independence in ADL's, mobility, safety and/or upper extremity function for ADL's. Plan of Care: ADL Retraining, Functional Mobility, Group Exercise/Act as Ind, UE Funct Exercise/Act Treatment Duration: December 26, 2022 Frequency: At least 5 of 7 days/Wk (IRF) Estimated Hrs Per Day: 1.5 hours per day Agreement: Yes Rehab Potential: Good Time Start Time: 10:30 Stop Time: 12:00 DATE: December 05, 2022 Total Time Billed (hr/min): 90 Billed Treatment Time 1 visit-ADL 2 (30 min) EX 4 (60 min) MELISSA PEREZ December 05, 2022 11:56
--- NOTE | 2022-12-05 13:53 | Physical Therapy Daily Note ---
PT Daily Note-Current Subjective Pt in recliner upon arrival and willing for therapy. pt states no pain but does have some when coughing. Pt stated that he did not have a BM lately and request I ask nursing for a laxative. Pain Section J - Health Conditions 1. Rarely or not at all 2. Occasionally 3. Frequently 4. Almost constantly 8. Unable to answer Pain Effect on Sleep: 0 Pain Interference with Therapy: 0 Pain Interference w/Day-to-Day: 0 Mental Status Patient Orientation: Person, Place, Time, Situation Transfers SCALE: Activities may be completed with or without assistive devices. 1-Cphpiiadcq-bfkrjwj completes the activity by him/herself with no assistance from a helper. 5-Set-up or Clean-up Assistance-helper sets up or cleans up; patient completes activity. [place] assists only prior to or following the activity. 4-Supervision or Touching Assistance-helper provides verbal cues and/or touching/steadying and/or contact guard assistance as patient completes activity. Assistance may be provided throughout the activity or intermittently. 3-Partial/Moderate Assistance-helper does LESS THAN HALF the effort. [place] lifts, holds or supports trunk or limbs, but provides less than half the effort. 2-Substantial/Maximal Assistance-helper does MORE THAN HALF the effort. [place] lifts or holds trunk or limbs and provides more than half the effort. 3-Ntsaaspwt-yzvxmq does ALL the effort. Patient does none of the effort to complete the activity. Or, the assistance of 2 or more helpers is required for the patient to complete the activity. If activity was not attempted, code reason: 7-Patient Refused. 9-Not Applicable-not attempted and the patient did not perform the activity before the current illness, exacerbation or injury. 10-Not Attempted due to Environmental Limitations-(lack of equipment, weather restraints, etc.). 88-Not Attempted due to Medical Conditions or Safety Concerns. Exercises Standing: Hip Abduction, Hamstring curls, Marching, Mini squats, Sit to Stand, Step-ups, Stepping over objects NuStep Minutes: 20 NuStep Workload: 1 Treatments Pt is able to preform 20 min Nu-Step at level one. pt does require multiple rest breaks secondary to SOB but O2 was WFL at all times. with pursed lip breathing pt is able to resume activity. pt is able to preform standing calf stretches. pt also executed standing marches for 60 sec x 3 with rest in between. pt is able to preform sitting ther-ex in all planes of motion available with BLE for 3 sets of 12 with 1lb ankle weight. Assessment Current Status: Good Progress PT Technical Cable Jointer Goals Technical Cable Jointer Goals PT Group Home Goals Time Frame: December 16, 2022 Roll Left & Right (QC): 6 Sit to Lying (QC): 6 Lying-Sitting on Side/Bed(QC): 6 Sit to Stand (QC): 6 Chair/Hqo-wt-Sblet Xfer(QC): 6 Toilet Transfer (QC): 6 Car Transfer (QC): 6 Does the Patient Walk: Yes Walk 10 feet (QC): 6 Walk 50ft with 2 Turns (QC): 6 Walk 150 ft (QC): 6 Walking 10ft on Uneven Surface: 6 1 Step (curb) (QC): 6 4 Steps (QC): 6 12 Steps (QC): 6 Picking up an Object (QC): 6 Wheel 50 feet with 2 turns (QC: 9 Wheel 150 feet: 9 PT Plan Problem List Problem List: Activity Tolerance Treatment/Plan Treatment Plan: Continue Plan of Care Treatment Plan: Concurrent Therapy, Functional Activity Natalia, Functional Strength, Transfers Treatment Duration: December 16, 2022 Frequency: At least 5 of 7 days/Wk (IRF) Estimated Hrs Per Day: 2 hours per day Time Time In: 0800 Time Out: 0900 DATE: December 05, 2022 Total Billed Treatment Time: 90 Total Billed Treatment 1 EX x 2 FA x 2 EX x 2 Cathy Hicks FORMING PRESS OPERATOR December 05, 2022 13:53
--- NOTE | 2022-12-05 15:51 | Progress Note - Cardiology ---
Cardiology SOAP Progress Note Subjective: Feels better today No cp Shortness of breath better but not resolved No focal weakness Gen weakness and malaise present No n/v/d Objective: I&O/Vital Signs 12/05/22 12/05/22 12/05/22 12/05/22 07:51 08:11 09:17 10:48 Temp 36.4 36.4 Pulse 69 69 Resp 18 18 B/P (MAP) 119/59 (79) 119/59 (79) Pulse Ox 92 92 92 95 O2 Delivery Nasal Cannula Nasal Cannula Nasal Cannula Nasal Cannula O2 Flow Rate 4.00 2.50 2.50 2.00 2.50 12/05/22 12/05/22 10:50 15:09 Pulse Ox 95 96 O2 Delivery Nasal Cannula Nasal Cannula O2 Flow Rate 2.00 2.00 12/04/22 23:59 Intake Total 880 ml Output Total 2800 ml Balance -1920 ml Weight (Pounds): 211 Weight (Ounces): 3.0 Weight (Calculated Kilograms): 95.499830 Constitutional: AAO x 3, well-developed, well-nourished Respiratory: No accessory muscle use; chest expansion is symmetric, chest is bilaterally symmetric, other (fair to good, bilateral air entry; bibasilar crackles) Cardiovascular: irregularly irregular, S1 and S2, systolic murmur (soft RAYSHAWN at card base) Gastrointestional: No tender; soft; No guarding, No rebound; audible bowel sounds Extremities: swelling (mild, bilateral leg swelling); No clubbing, No cyanosis Neurologic/Psychiatric: oriented x 3, other (moves all limbs) Skin: normal color, warm/dry; No cyanosis, No cool, No diaphoresis, No rash on exposed areas, No ulcerations on exposed areas Results/Procedures: Labs Laboratory Tests 12/05/22 05:01: Sodium Level 139, Potassium Level 3.7, Chloride Level 94L, Carbon Dioxide Level 39H, Anion Gap 6, Blood Urea Nitrogen 11, Creatinine 0.79, Estimat Glomerular Filtration Rate 98, BUN/Creatinine Ratio 14, Glucose Level 109H, Calcium Level 7.9L, Magnesium Level 1.9 Laboratory Tests 12/05/22 05:01 A/P: Assessment: Ac resp failure (and transient PEA) due to spontaneous L pneumothorax due to ruptured bleb (treated at [facility] in ) Ac diastolic CHF, resolved - Echo of 12-05-22: LVEF 55-60%, PASP 30-35 mmHg PAF, currently NSR with PACs Ch COPD H/o heavy EtOH use H/o NICD but echo at [facility], is reported to have shown normal LVEF (Dr Rizzo's note of 11/29/22) H/o DELIA Plan: * Reduce diuretic * Continue amio, bb, OAC * Monitor labs NADIR ORTEGA MD FACP FAC CCDS December 05, 2022 15:51
[2022-12-05 19:10] VITALS: BP 107/59
[2022-12-05] MEDS: polyethylene glycoL POWDER 17 GM (MIRALAX) PACK PO SCH (19:59)
[2022-12-05] MEDS: POVIDONE (BETADINE) 10% SOLN 240 ML BTL TOP SCH (20:34)
[2022-12-06] MEDS: RT-ALBUTEROL HFA 8.5 GM INHALER IH SCH ×4 (03:02→20:50)
--- NOTE | 2022-12-06 06:44 | PM&R Progress Note ---
Subjective HPI/CC On Admission Date Seen by Provider: December 06, 2022 Time Seen by Provider: 11:30 Subjective/Events-last exam 12/06/2022: Doing well i the independent room at bedside No pain Improved strength 12/05/2022: Patient doing well Focused on BM this am No pain reported Less dyspnea 12/04/2022: Doing really well Gaining function No falls Dyspnea improved No pain 12/03/2022: Doing well Improving with therapy No pain Wound care consulted Review of Systems General: Fatigue, Malaise Objective Exam Vital Signs Vital Signs Date Time Temp Pulse Resp B/P (MAP) Pulse Ox O2 Delivery O2 Flow Rate FiO2 12/06/22 09:35 Nasal Cannula 2.50 12/06/22 09:29 97 12/06/22 07:13 36.4 60 20 113/69 (84) 12/02/22 20:48 Capillary Refill : General Appearance: No Apparent Distress, WD/WN, Chronically ill HEENT: PERRL/EOMI, Normal ENT Inspection, Pharynx Normal Neck: Full Range of Motion, Normal Inspection, Non Tender, Supple, Carotid Bruit Respiratory: Chest Non Tender, No Accessory Muscle Use, No Respiratory Distress, Crackles, Decreased Breath Sounds, Wheezing Cardiovascular: Regular Rate, Rhythm, No Gallop, No JVD, No Murmur, Normal Peripheral Pulses Gastrointestinal: Normal Bowel Sounds, No Organomegaly, No Pulsatile Mass, Non Tender, Soft Back: Normal Inspection, No CVA Tenderness, No Vertebral Tenderness Extremity: Normal Capillary Refill, Normal Inspection, Normal Range of Motion, Non Tender, No Calf Tenderness, Pedal Edema Neurologic/Psychiatric: Alert, Oriented x3, Normal Mood/Affect, lubrication servicer II-XII Norm as Tested, Abnormal Gait, Motor Weakness (generalized) Skin: Normal Color, Warm/Dry Lymphatic: No Adenopathy Results/Procedures Lab Patient resulted labs reviewed. FIM Transfers Therapy Code Descriptions/Definitions Functional [place] Measure: 0=Not Assessed/NA 4=Minimal Assistance 1=Total Assistance 5=Supervision or Setup 2=Maximal Assistance 6=Modified [place] 3=Moderate Assistance 7=Complete IndependenceSCALE: Activities may be completed with or without assistive devices. 3-Rghoulhxwl-czcbqwi completes the activity by him/herself with no assistance from a helper. 5-Set-up or Clean-up Assistance-helper sets up or cleans up; patient completes activity. [place] assists only prior to or following the activity. 4-Supervision or Touching Assistance-helper provides verbal cues and/or touching/steadying and/or contact guard assistance as patient completes activity. Assistance may be provided throughout the activity or intermittently. 3-Partial/Moderate Assistance-helper does LESS THAN HALF the effort. [place] lifts, holds or supports trunk or limbs, but provides less than half the effort. 2-Substantial/Maximal Assistance-helper does MORE THAN HALF the effort. [place] lifts or holds trunk or limbs and provides more than half the effort. 4-Avfbwhpsv-vugbvz does ALL the effort. Patient does none of the effort to complete the activity. Or, the assistance of 2 or more helpers is required for the patient to complete the activity. If activity was not attempted, code reason: 7-Patient Refused. 9-Not Applicable-not attempted and the patient did not perform the activity before the current illness, exacerbation or injury. 10-Not Attempted due to Environmental Limitations-(lack of equipment, weather restraints, etc.). 88-Not Attempted due to Medical Conditions or Safety Concerns. Roll Left to Right (QC): 6 Sit to Lying (QC): 6 Sit to Stand (QC): 4 Chair/Nif-kw-Puxjz Xfer(QC): 4 Car Transfer (QC): 4 Gait Training Walk 10 feet (QC): 4 Walk 50 ft with 2 Turns(QC): 4 Walk 150 ft (QC): 4 Walking 10ft/uneven surface-QC: 4 Stair Training 1 Step (curb) (QC): 3 4 Steps (QC): 3 12 Steps (QC): 3 Mental Status/Objective Comprehension: 5 Expression: 6 Social Interaction: 6 Problem Solvin Memory: 5 ADL-Treatment Eating (QC): 6 Oral Hygiene (QC): 6 Shower/Bathe Self (QC): 4 Upper Body Dressing (QC): 5 Lower Body Dressing (QC): 5 On/Off Footwear (QC): 5 Toileting Hygiene (QC): 6 Toilet Transfer (QC): 6 Assessment/Plan Assessment and Plan Assess & Plan/Chief Complaint Assessment: Debility following cardiac arrest 11/06/22 Left sided PTX s/p chest tube now residual SQ emphysema AF HTN HLP COPD DELIA non-compliant with CPAP Plan: PT OT Home meds Monitor closely 12/03/2022: Monitor closely Cardiology consulted 12/04/2022: Monitor closely 12/05/2022: CXR ok Use IS Nebs 12/06/2022: Monitor O2 Nebs (1) Respiratory failure Status: Acute TABATHA JOHNSON DO December 06, 2022 06:44
[2022-12-06 07:13] VITALS: BP 113/69
[2022-12-06] MEDS: THIAMINE 100 MG (VITAMIN B-1) TAB PO SCH (08:07)
[2022-12-06] MEDS: FOLIC ACID 1 MG TAB PO SCH (08:07)
[2022-12-06] MEDS: APIXABAN 5 MG (ELIQUIS) TABLET PO SCH ×2 (08:07→20:42)
[2022-12-06] MEDS: AMIODARONE 200 MG (CORDARONE) TAB PO SCH (08:07)
[2022-12-06] MEDS: SENNA W/DOCUSATE (SENOKOT S) TABLET PO SCH ×2 (08:07→20:42)
[2022-12-06] MEDS: MULTIVITAMINS LIQUID 15 ML UDC PO SCH (08:07)
[2022-12-06] MEDS: MAGNESIUM OXIDE (MAG-OX)400 MG TAB PO SCH ×2 (08:07→20:42)
[2022-12-06] MEDS: POVIDONE (BETADINE) 10% SOLN 240 ML BTL TOP SCH ×2 (08:08→21:58)
[2022-12-06] MEDS: DOCUSATE SODIUM 100 MG (COLACE) CAP PO SCH ×2 (08:08→20:42)
[2022-12-06] MEDS: HYPOCHLOROUS ACID/NaCl (VASHE) 250 ML IR PRN ×2 (08:08→08:09)
[2022-12-06] MEDS: HYPOCHLOROUS ACID/NaCl (VASHE) 250 ML IR SCH ×2 (08:09→11:59)
--- NOTE | 2022-12-06 09:14 | Occupational Ther Daily Note ---
OT Current Status-Daily Note Subjective Pt found in sitting in chair in room. Pt was alert and cooperative, agreed to OT. no pain mentioned. Mental Status/Objective Patient Orientation: Person, Place, Time, Situation Attachments: Oxygen (2-3L) ADL-Treatment Pt agreed to a shower. Pt ambulated with FWW to shower transfer bench with SBA. Pt was independent with shower/bathed self. Pt was independent with toileting. Pt independent for oral care and grooming while seated at sink. Pt took increased time to complete all tasks due to SOA and multiple recovery breaks. Pt set up for upper body dressing as well as lower body dressing. Pt set up for donning footwear. Pt ambulated with FWW, SBA to sink and sat in chair to complete oral care and grooming. Pt ambulated back to chair in room using FWW, SBA. Pt completed theraputty activity to address dexterity, coordination, and fine motor strength. Pt was educated on HEP and red and green therabands were left on tray to work on throughout the weekend. Pt was educated to use call light when getting up to use restroom/grooming for safety, nursing was in room when educated pt on safety and getting up. Pt was left sitting up in chair, with call light and phone within reach. All needs met in room. Therapy Code Descriptions/Definitions Functional [place] Measure: 0=Not Assessed/NA 4=Minimal Assistance 1=Total Assistance 5=Supervision or Setup 2=Maximal Assistance 6=Modified [place] 3=Moderate Assistance 7=Complete IndependenceSCALE: Activities may be completed with or without assistive devices. 1-Xxbelklhqt-ifruxdz completes the activity by him/herself with no assistance from a helper. 5-Set-up or Clean-up Assistance-helper sets up or cleans up; patient completes activity. [place] assists only prior to or following the activity. 4-Supervision or Touching Assistance-helper provides verbal cues and/or touching/steadying and/or contact guard assistance as patient completes activity. Assistance may be provided throughout the activity or intermittently. 3-Partial/Moderate Assistance-helper does LESS THAN HALF the effort. [place] lifts, holds or supports trunk or limbs, but provides less than half the effort. 2-Substantial/Maximal Assistance-helper does MORE THAN HALF the effort. [place] lifts or holds trunk or limbs and provides more than half the effort. 7-Viyroizmd-vctbvq does ALL the effort. Patient does none of the effort to complete the activity. Or, the assistance of 2 or more helpers is required for the patient to complete the activity. If activity was not attempted, code reason: 7-Patient Refused. 9-Not Applicable-not attempted and the patient did not perform the activity before the current illness, exacerbation or injury. 10-Not Attempted due to Environmental Limitations-(lack of equipment, weather restraints, etc.). 88-Not Attempted due to Medical Conditions or Safety Concerns. Eating (QC): 6 Oral Hygiene (QC): 6 (while seated) Shower/Bathe Self (QC): 6 Upper Body Dressing (QC): 5 Lower Body Dressing (QC): 5 On/Off Footwear: 5 Toileting Hygiene (QC): 6 Toilet Transfer (QC): 6 Education OT Patient Education: Energy conservation, Home exercise program Teaching Recipient: Patient Teaching Methods: Demonstration Response to Teaching: Verbalize Understanding OT Short Term Goals Short Term Goals Time Frame: December 12, 2022 Shower/bathe self: 5 Lower body dressin Putting on/taking off footwear: 5 OT Supervisor Records Change Goals Residential Goals Time Frame: December 26, 2022 Acute change in mental status: 0 Inattention: 0 Disorganized thinkin Altered level of consciousness: 0 Eating (QC): 6 Oral Hygiene (QC): 6 Toileting Hygiene (QC): 6 Shower/Bathe Self (QC): 6 Upper Body Dressing (QC): 6 Lower Body Dressing (QC): 6 On/Off Footwear (QC): 6 Additional Goals: 1-Demonstrate ADL Tasks, 2-Verbalize Understanding, 3-Improv eStrength/Natalia 1=Demonstrate adherence to instructed precautions during ADL tasks. 2=Patient will verbalize/demonstrate understanding of assistive devices/modifications for ADL. 3=Patient will improve strength/tolerance for activity to enable patient to p erform ADL's. OT Education/Plan Discharge Recommendations Plan/Recommendations: Continue POC Treatment Plan/Plan of Care Patient would benefit from OT for education, treatment and training to promote independence in ADL's, mobility, safety and/or upper extremity function for ADL's. Plan of Care: ADL Retraining, Functional Mobility, Group Exercise/Act as Ind, UE Funct Exercise/Act Treatment Duration: December 26, 2022 Frequency: At least 5 of 7 days/Wk (IRF) Estimated Hrs Per Day: 1.5 hours per day Agreement: Yes Rehab Potential: Good Time Start Time: 07:30 Stop Time: 09:00 DATE: December 06, 2022 Total Time Billed (hr/min): 90 Billed Treatment Time 1 visit ADL 5 Ex 1 [employer] COTA December 06, 2022 09:14
[2022-12-06] MEDS: UMECLIDINIUM BROMIDE (INCRUSE ELLIPTA) 7'S IH SCH (09:29)
[2022-12-06] MEDS: polyethylene glycoL POWDER 17 GM (MIRALAX) PACK PO SCH ×2 (11:59→19:21)
--- NOTE | 2022-12-06 12:02 | Physical Therapy Daily Note ---
PT Daily Note-Current Subjective Pt in room upon arrival and agrees to PT. Pain Section J - Health Conditions 1. Rarely or not at all 2. Occasionally 3. Frequently 4. Almost constantly 8. Unable to answer Pain Effect on Sleep: 0 Pain Interference with Therapy: 0 Pain Interference w/Day-to-Day: 0 Mental Status Patient Orientation: Person, Place, Time, Situation Transfers SCALE: Activities may be completed with or without assistive devices. 8-Juvnjbxcrk-vlyqvnc completes the activity by him/herself with no assistance from a helper. 5-Set-up or Clean-up Assistance-helper sets up or cleans up; patient completes activity. [place] assists only prior to or following the activity. 4-Supervision or Touching Assistance-helper provides verbal cues and/or touching/steadying and/or contact guard assistance as patient completes acti vity. Assistance may be provided throughout the activity or intermittently. 3-Partial/Moderate Assistance-helper does LESS THAN HALF the effort. [place] lifts, holds or supports trunk or limbs, but provides less than half the effort. 2-Substantial/Maximal Assistance-helper does MORE THAN HALF the effort. [place] lifts or holds trunk or limbs and provides more than half the effort. 4-Zqwtwxmvg-ueecqs does ALL the effort. Patient does none of the effort to complete the activity. Or, the assistance of 2 or more helpers is required for the patient to complete the activity. If activity was not attempted, code reason: 7-Patient Refused. 9-Not Applicable-not attempted and the patient did not perform the activity before the current illness, exacerbation or injury. 10-Not Attempted due to Environmental Limitations-(lack of equipment, weather restraints, etc.). 88-Not Attempted due to Medical Conditions or Safety Concerns. Sit to Stand (QC): 5 Gait Training Does the Patient Walk?: Yes Distance: 250' x 2 50' x2 Walk 10 feet (QC): 5 Walk 50 ft with 2 Turns(QC): 5 Walk 150 ft (QC): 5 Gait Assistive Device: FWW Exercises Seated Therapy Exercises: Sit to stand Seated Reps: [address] Ex=Flex, Abd, Ext, Mini squats, Side steps, Step-ups Standing Reps: 20 NuStep Minutes: 25 NuStep Workload: 2 Treatments Pt amb from room out into gutierrez and into therapy gym. Pt then TFs to nustep. Pt then amb to // bars and performs standing exs. Pt then amb back to room and TFs to recliner. Call light nearby and all needs met. Assessment Current Status: Good Progress Pt required rest breaks throughout but tolerated treatment well. Pt fatigued towards end of treatment. Pt required cues for hand and foot placement for transfers. PT Dicer Machine Operator Goals Dicer Machine Operator Goals PT Retirement Goals Time Frame: December 16, 2022 Roll Left & Right (QC): 6 Sit to Lying (QC): 6 Lying-Sitting on Side/Bed(QC): 6 Sit to Stand (QC): 6 Chair/Ccl-qw-Izlda Xfer(QC): 6 Toilet Transfer (QC): 6 Car Transfer (QC): 6 Does the Patient Walk: Yes Walk 10 feet (QC): 6 Walk 50ft with 2 Turns (QC): 6 Walk 150 ft (QC): 6 Walking 10ft on Uneven Surface: 6 1 Step (curb) (QC): 6 4 Steps (QC): 6 12 Steps (QC): 6 Picking up an Object (QC): 6 Wheel 50 feet with 2 turns (QC: 9 Wheel 150 feet: 9 PT Plan Problem List Problem List: Activity Tolerance, Functional Strength Treatment/Plan Treatment Plan: Continue Plan of Care Treatment Plan: Concurrent Therapy, Functional Activity Natalia, Functional Strength, Transfers Treatment Duration: December 16, 2022 Frequency: At least 5 of 7 days/Wk (IRF) Estimated Hrs Per Day: 2 hours per day Safety Risks/Education Patient Education: Gait Training Teaching Recipient: Patient Teaching Methods: Discussion Response to Teaching: Return Demonstration Time Time In: 0945 Time Out: 1115 DATE: December 06, 2022 Total Billed Treatment Time: 90 Total Billed Treatment 1, Ex x 4, GT x 2 ISADORA DAUGHERTY PTA December 06, 2022 12:02
--- NOTE | 2022-12-06 14:15 | Progress Note - Cardiology ---
Cardiology SOAP Progress Note Subjective: Some chronic chest soreness Shortness of breath improving Mild, bilateral leg swelling No n/v/d No palp or syncope Objective: I&O/Vital Signs 12/06/22 12/06/22 12/06/22 12/06/22 03:02 07:13 09:29 09:35 Temp 36.4 Pulse 60 Resp 20 B/P (MAP) 113/69 (84) Pulse Ox 95 95 97 O2 Delivery Nasal Cannula Nasal Cannula Nasal Cannula Nasal Cannula O2 Flow Rate 2.00 2.50 2.50 2.50 12/05/22 23:59 Intake Total 1140 ml Output Total 2800 ml Balance -1660 ml Weight (Pounds): 211 Weight (Ounces): 3.0 Weight (Calculated Kilograms): 95.543205 Constitutional: AAO x 3, well-developed, well-nourished Respiratory: No accessory muscle use; chest expansion is symmetric, chest is bilaterally symmetric, other (fair to good, bilateral air entry; bibasilar crackles) Cardiovascular: irregularly irregular, S1 and S2, systolic murmur (soft RAYSHAWN at card base) Gastrointestional: No tender; soft; No guarding, No rebound; audible bowel sounds Extremities: swelling (mild, bilateral leg swelling); No clubbing, No cyanosis Neurologic/Psychiatric: oriented x 3, other (moves all limbs) Skin: normal color, warm/dry; No cyanosis, No cool, No diaphoresis, No rash on exposed areas, No ulcerations on exposed areas Results/Procedures: Labs Laboratory Tests 12/05/22 05:01 A/P: Assessment: Ac resp failure (and transient PEA) due to spontaneous L pneumothorax due to ruptured bleb (treated at [facility] in ) Ac diastolic CHF, resolved - Echo of 12-05-22: LVEF 55-60%, PASP 30-35 mmHg PAF, currently NSR with PACs Ch COPD H/o heavy EtOH use H/o NICD but echo at [facility], is reported to have shown normal LVEF (Dr Rizzo's note of 11/29/22) H/o DELIA Plan: * diuretic reduced * Continue amio, bb, OAC * Monitor labs NADIR ORTEGA MD FACP FAC CCDS December 06, 2022 14:15
[2022-12-06 19:52] VITALS: BP 126/71
[2022-12-07] MEDS: RT-ALBUTEROL HFA 8.5 GM INHALER IH SCH ×2 (02:34→10:04)
--- NOTE | 2022-12-07 07:02 | PM&R Progress Note ---
Subjective HPI/CC On Admission Date Seen by Provider: December 07, 2022 Time Seen by Provider: 12:00 Subjective/Events-last exam 12/07/2022: Improved overall No pain reported Breathing well No falls 12/06/2022: Doing well i the independent room at bedside No pain Improved strength 12/05/2022: Patient doing well Focused on BM this am No pain reported Less dyspnea 12/04/2022: Doing really well Gaining function No falls Dyspnea improved No pain 12/03/2022: Doing well Improving with therapy No pain Wound care consulted Review of Systems General: Fatigue, Malaise Objective Exam Vital Signs Vital Signs Date Time Temp Pulse Resp B/P (MAP) Pulse Ox O2 Delivery O2 Flow Rate FiO2 12/07/22 10:05 95 Nasal Cannula 2.50 12/07/22 08:26 36.6 60 20 109/58 (75) 12/02/22 20:48 Capillary Refill : General Appearance: No Apparent Distress, WD/WN, Chronically ill HEENT: PERRL/EOMI, Normal ENT Inspection, Pharynx Normal Neck: Full Range of Motion, Normal Inspection, Non Tender, Supple, Carotid Bruit Respiratory: Chest Non Tender, No Accessory Muscle Use, No Respiratory Distress, Crackles, Decreased Breath Sounds, Wheezing Cardiovascular: Regular Rate, Rhythm, No Gallop, No JVD, No Murmur, Normal Peripheral Pulses Gastrointestinal: Normal Bowel Sounds, No Organomegaly, No Pulsatile Mass, Non Tender, Soft Back: Normal Inspection, No CVA Tenderness, No Vertebral Tenderness Extremity: Normal Capillary Refill, Normal Inspection, Normal Range of Motion, Non Tender, No Calf Tenderness, Pedal Edema Neurologic/Psychiatric: Alert, Oriented x3, Normal Mood/Affect, tool storage attendant II-XII Norm as Tested, Abnormal Gait, Motor Weakness (generalized) Skin: Normal Color, Warm/Dry Lymphatic: No Adenopathy Results/Procedures Lab Patient resulted labs reviewed. FIM Transfers Therapy Code Descriptions/Definitions Functional [place] Measure: 0=Not Assessed/NA 4=Minimal Assistance 1=Total Assistance 5=Supervision or Setup 2=Maximal Assistance 6=Modified [place] 3=Moderate Assistance 7=Complete IndependenceSCALE: Activities may be completed with or without assistive devices. 7-Hzmnvndght-nobwsbw completes the activity by him/herself with no assistance from a helper. 5-Set-up or Clean-up Assistance-helper sets up or cleans up; patient completes activity. [place] assists only prior to or following the activity. 4-Supervision or Touching Assistance-helper provides verbal cues and/or touching/steadying and/or contact guard assistance as patient completes activity. Assistance may be provided throughout the activity or intermittently. 3-Partial/Moderate Assistance-helper does LESS THAN HALF the effort. [place] lifts, holds or supports trunk or limbs, but provides less than half the effort. 2-Substantial/Maximal Assistance-helper does MORE THAN HALF the effort. [place] lifts or holds trunk or limbs and provides more than half the effort. 0-Unrjpsbny-jaykpv does ALL the effort. Patient does none of the effort to complete the activity. Or, the assistance of 2 or more helpers is required for the patient to complete the activity. If activity was not attempted, code reason: 7-Patient Refused. 9-Not Applicable-not attempted and the patient did not perform the activity before the current illness, exacerbation or injury. 10-Not Attempted due to Environmental Limitations-(lack of equipment, weather restraints, etc.). 88-Not Attempted due to Medical Conditions or Safety Concerns. Roll Left to Right (QC): 6 Sit to Lying (QC): 6 Sit to Stand (QC): 5 Chair/Esp-cn-Kdqur Xfer(QC): 4 Car Transfer (QC): 4 Gait Training Does the Patient Walk?: Yes Distance: 250' x 2 50' x2 Walk 10 feet (QC): 5 Walk 50 ft with 2 Turns(QC): 5 Walk 150 ft (QC): 5 Walking 10ft/uneven surface-QC: 4 Gait Assistive Device: FWW Stair Training 1 Step (curb) (QC): 3 4 Steps (QC): 3 12 Steps (QC): 3 Mental Status/Objective Comprehension: 5 Expression: 6 Social Interaction: 6 Problem Solvin Memory: 5 ADL-Treatment Eating (QC): 6 Oral Hygiene (QC): 6 (while seated) Shower/Bathe Self (QC): 6 Upper Body Dressing (QC): 5 Lower Body Dressing (QC): 5 On/Off Footwear (QC): 5 Toileting Hygiene (QC): 6 Toilet Transfer (QC): 6 Assessment/Plan Assessment and Plan Assess & Plan/Chief Complaint Assessment: Debility following cardiac arrest 11/06/22 Left sided PTX s/p chest tube now residual SQ emphysema AF HTN HLP COPD DELIA non-compliant with CPAP Plan: PT OT Home meds Monitor closely 12/03/2022: Monitor closely Cardiology consulted 12/04/2022: Monitor closely 12/05/2022: CXR ok Use IS Nebs 12/06/2022: Monitor O2 Nebs 12/07/2022: Monitor closely (1) Respiratory failure Status: Acute TABATHA JOHNSON DO December 07, 2022 07:01
[2022-12-07 08:26] VITALS: BP 109/58
[2022-12-07] MEDS: THIAMINE 100 MG (VITAMIN B-1) TAB PO SCH (08:48)
[2022-12-07] MEDS: FOLIC ACID 1 MG TAB PO SCH (08:48)
[2022-12-07] MEDS: MULTIVITAMINS LIQUID 15 ML UDC PO SCH (08:48)
[2022-12-07] MEDS: POVIDONE (BETADINE) 10% SOLN 240 ML BTL TOP SCH ×2 (08:49→21:34)
[2022-12-07] MEDS: MAGNESIUM OXIDE (MAG-OX)400 MG TAB PO SCH ×2 (08:49→21:22)
[2022-12-07] MEDS: APIXABAN 5 MG (ELIQUIS) TABLET PO SCH ×2 (08:49→21:22)
[2022-12-07] MEDS: DOCUSATE SODIUM 100 MG (COLACE) CAP PO SCH ×2 (08:49→21:22)
[2022-12-07] MEDS: HYPOCHLOROUS ACID/NaCl (VASHE) 250 ML IR PRN (08:49)
[2022-12-07] MEDS: AMIODARONE 200 MG (CORDARONE) TAB PO SCH (08:49)
[2022-12-07] MEDS: SENNA W/DOCUSATE (SENOKOT S) TABLET PO SCH ×2 (08:58→21:22)
[2022-12-07] MEDS ORDERED: FUROSEMIDE 40 MG (LASIX) TAB PO SCH (09:00)
[2022-12-07] MEDS: HYPOCHLOROUS ACID/NaCl (VASHE) 250 ML IR SCH (09:59)
[2022-12-07] MEDS: polyethylene glycoL POWDER 17 GM (MIRALAX) PACK PO SCH ×2 (09:59→18:52)
[2022-12-07] MEDS: UMECLIDINIUM BROMIDE (INCRUSE ELLIPTA) 7'S IH SCH (10:04)
[2022-12-07 19:15] VITALS: BP 121/58
--- NOTE | 2022-12-08 06:49 | PM&R Progress Note ---
Subjective HPI/CC On Admission Date Seen by Provider: December 08, 2022 Time Seen by Provider: 08:30 Subjective/Events-last exam 12/08/2022: No major events No pain reported Improved breathing No falls 12/07/2022: Improved overall No pain reported Breathing well No falls 12/06/2022: Doing well i the independent room at bedside No pain Improved strength 12/05/2022: Patient doing well Focused on BM this am No pain reported Less dyspnea 12/04/2022: Doing really well Gaining function No falls Dyspnea improved No pain 12/03/2022: Doing well Improving with therapy No pain Wound care consulted Review of Systems General: Fatigue, Malaise Objective Exam Vital Signs Vital Signs Date Time Temp Pulse Resp B/P (MAP) Pulse Ox O2 Delivery O2 Flow Rate FiO2 12/09/22 02:22 Nasal Cannula 2.50 12/08/22 21:30 95 12/08/22 20:15 37.2 61 20 110/59 (76) Capillary Refill : General Appearance: No Apparent Distress, WD/WN, Chronically ill HEENT: PERRL/EOMI, Normal ENT Inspection, Pharynx Normal Neck: Full Range of Motion, Normal Inspection, Non Tender, Supple, Carotid Bruit Respiratory: Chest Non Tender, No Accessory Muscle Use, No Respiratory Distress, Crackles, Decreased Breath Sounds, Wheezing Cardiovascular: Regular Rate, Rhythm, No Gallop, No JVD, No Murmur, Normal Peripheral Pulses Gastrointestinal: Normal Bowel Sounds, No Organomegaly, No Pulsatile Mass, Non Tender, Soft Back: Normal Inspection, No CVA Tenderness, No Vertebral Tenderness Extremity: Normal Capillary Refill, Normal Inspection, Normal Range of Motion, Non Tender, No Calf Tenderness, Pedal Edema Neurologic/Psychiatric: Alert, Oriented x3, Normal Mood/Affect, wrapping checker II-XII Norm as Tested, Abnormal Gait, Motor Weakness (generalized) Skin: Normal Color, Warm/Dry Lymphatic: No Adenopathy Results/Procedures Lab Laboratory Tests 12/08/22 07:10 Patient resulted labs reviewed. FIM Transfers Therapy Code Descriptions/Definitions Functional [place] Measure: 0=Not Assessed/NA 4=Minimal Assistance 1=Total Assistance 5=Supervision or Setup 2=Maximal Assistance 6=Modified [place] 3=Moderate Assistance 7=Complete IndependenceSCALE: Activities may be completed with or without assistive devices. 5-Kgovqvncwj-pekdffy completes the activity by him/herself with no assistance from a helper. 5-Set-up or Clean-up Assistance-helper sets up or cleans up; patient completes activity. [place] assists only prior to or following the activity. 4-Supervision or Touching Assistance-helper provides verbal cues and/or touch ing/steadying and/or contact guard assistance as patient completes activity. Assistance may be provided throughout the activity or intermittently. 3-Partial/Moderate Assistance-helper does LESS THAN HALF the effort. [place] lifts, holds or supports trunk or limbs, but provides less than half the effort. 2-Substantial/Maximal Assistance-helper does MORE THAN HALF the effort. [place] lifts or holds trunk or limbs and provides more than half the effort. 3-Dpuiogomy-mwenhc does ALL the effort. Patient does none of the effort to complete the activity. Or, the assistance of 2 or more helpers is required for the patient to complete the activity. If activity was not attempted, code reason: 7-Patient Refused. 9-Not Applicable-not attempted and the patient did not perform the activity bef ore the current illness, exacerbation or injury. 10-Not Attempted due to Environmental Limitations-(lack of equipment, weather restraints, etc.). 88-Not Attempted due to Medical Conditions or Safety Concerns. Roll Left to Right (QC): 6 Sit to Lying (QC): 6 Sit to Stand (QC): 5 Chair/Xjv-oh-Czdqm Xfer(QC): 4 Car Transfer (QC): 4 Gait Training Does the Patient Walk?: Yes Distance: 250' x 2 50' x2 Walk 10 feet (QC): 5 Walk 50 ft with 2 Turns(QC): 5 Walk 150 ft (QC): 5 Walking 10ft/uneven surface-QC: 4 Gait Assistive Device: FWW Stair Training 1 Step (curb) (QC): 3 4 Steps (QC): 3 12 Steps (QC): 3 Mental Status/Objective Comprehension: 5 Expression: 6 Social Interaction: 6 Problem Solvin Memory: 5 ADL-Treatment Eating (QC): 6 Oral Hygiene (QC): 6 (while seated) Shower/Bathe Self (QC): 6 Upper Body Dressing (QC): 5 Lower Body Dressing (QC): 5 On/Off Footwear (QC): 5 Toileting Hygiene (QC): 6 Toilet Transfer (QC): 6 Assessment/Plan Assessment and Plan Assess & Plan/Chief Complaint Assessment: Debility following cardiac arrest 11/06/22 Left sided PTX s/p chest tube now residual SQ emphysema AF HTN HLP COPD DELIA non-compliant with CPAP Chest wall wound Plan: PT OT Home meds Monitor closely 12/03/2022: Monitor closely Cardiology consulted 12/04/2022: Monitor closely 12/05/2022: CXR ok Use IS Nebs 12/06/2022: Monitor O2 Nebs 12/07/2022: Monitor closely 12/08/2022: Continue wound care (1) Respiratory failure Status: Acute TABATHA JOHNSON DO December 08, 2022 06:49
[2022-12-08 07:19] LABS: BASOPHILS # (AUTO) 0.1 10^3/uL (0.0-0.1); BASOPHILS % (AUTO) 1 % (0-10); EOSINOPHILS # (AUTO) 0.9 10^3/uL (0.0-0.3); EOSINOPHILS % (AUTO) 8 % (0-10); HEMATOCRIT 30 % (40-54); HEMOGLOBIN 9.8 g/dL (13.3-17.7); LYMPHOCYTES # (AUTO) 1.3 10^3/uL (1.0-4.0); LYMPHOCYTES % (AUTO) 12 % (12-44); MEAN CORPUSCULAR HEMOGLOBIN 33 pg (25-34); MEAN CORPUSCULAR HGB CONC 33 g/dL (32-36); MEAN CORPUSCULAR VOLUME 99 fL (80-99); MEAN PLATELET VOLUME 10.1 fL (9.0-12.2); MONOCYTES # (AUTO) 0.8 10^3/uL (0.0-1.0); MONOCYTES % (AUTO) 8 % (0-12); NEUTROPHILS # (AUTO) 7.3 10^3/uL (1.8-7.8); NEUTROPHILS % (AUTO) 70 % (42-75); PLATELET COUNT 200 10^3/uL (130-400); WHITE BLOOD COUNT 10.3 10^3/uL (4.3-11.0)
[2022-12-08 07:37] LABS: ALBUMIN 3.1 GM/DL (3.2-4.5)
[2022-12-08 07:39] LABS: CALCIUM 8.6 MG/DL (8.5-10.1)
[2022-12-08 07:42] LABS: BILIRUBIN,TOTAL 0.5 MG/DL (0.1-1.0)
[2022-12-08 07:44] LABS: CREATININE SERUM 0.82 MG/DL (0.60-1.30)
[2022-12-08 08:20] VITALS: BP 115/52
[2022-12-08] MEDS: DOCUSATE SODIUM 100 MG (COLACE) CAP PO SCH ×2 (08:21→21:30)
[2022-12-08] MEDS: FOLIC ACID 1 MG TAB PO SCH (08:21)
[2022-12-08] MEDS: THIAMINE 100 MG (VITAMIN B-1) TAB PO SCH (08:21)
[2022-12-08] MEDS: MAGNESIUM OXIDE (MAG-OX)400 MG TAB PO SCH ×2 (08:21→21:54)
[2022-12-08] MEDS: APIXABAN 5 MG (ELIQUIS) TABLET PO SCH ×2 (08:21→21:54)
[2022-12-08] MEDS: SENNA W/DOCUSATE (SENOKOT S) TABLET PO SCH ×2 (08:21→21:30)
[2022-12-08] MEDS: AMIODARONE 200 MG (CORDARONE) TAB PO SCH (08:22)
[2022-12-08] MEDS: MULTIVITAMINS LIQUID 15 ML UDC PO SCH (08:22)
[2022-12-08] MEDS: HYPOCHLOROUS ACID/NaCl (VASHE) 250 ML IR PRN (08:22)
[2022-12-08] MEDS: polyethylene glycoL POWDER 17 GM (MIRALAX) PACK PO SCH ×2 (08:22→21:30)
--- NOTE | 2022-12-08 08:52 | Occupational Ther Daily Note ---
OT Current Status-Daily Note Subjective Pt found in room in chair. Pt alert and cooperative. Mental Status/Objective Patient Orientation: Person, Place, Time, Situation ADL-Treatment Pt independent with eating, Pt ambulated to bathroom independently, with FWW. Pt independent with toilet transfer and toilet hygiene. Pt ambulated back to chair in room with FWW, independently. Pt was left in chair with call light and phone within reach. All needs met. Therapy Code Descriptions/Definitions Functional [place] Measure: 0=Not Assessed/NA 4=Minimal Assistance 1=Total Assistance 5=Supervision or Setup 2=Maximal Assistance 6=Modified [place] 3=Moderate Assistance 7=Complete IndependenceSCALE: Activities may be completed with or without assistive devices. 8-Rsihmaukie-ldpvnry completes the activity by him/herself with no assistance from a helper. 5-Set-up or Clean-up Assistance-helper sets up or cleans up; patient completes activity. [place] assists only prior to or following the activity. 4-Supervision or Touching Assistance-helper provides verbal cues and/or touching/steadying and/or contact guard assistance as patient completes activity. Assistance may be provided throughout the activity or intermittently. 3-Partial/Moderate Assistance-helper does LESS THAN HALF the effort. [place] lifts, holds or supports trunk or limbs, but provides less than half the effort. 2-Substantial/Maximal Assistance-helper does MORE THAN HALF the effort. [place] lifts or holds trunk or limbs and provides more than half the effort. 1-Xvtzqmhwq-iqmdpg does ALL the effort. Patient does none of the effort to complete the activity. Or, the assistance of 2 or more helpers is required for the patient to complete the activity. If activity was not attempted, code reason: 7-Patient Refused. 9-Not Applicable-not attempted and the patient did not perform the activity before the current illness, exacerbation or injury. 10-Not Attempted due to Environmental Limitations-(lack of equipment, weather restraints, etc.). 88-Not Attempted due to Medical Conditions or Safety Concerns. Toileting Hygiene (QC): 6 Toilet Transfer (QC): 6 OT Short Term Goals Short Term Goals Time Frame: December 12, 2022 Shower/bathe self: 5 Lower body dressin Putting on/taking off footwear: 5 OT Hobbing Machine Operator Goals [facility] Goals Time Frame: December 26, 2022 Acute change in mental status: 0 Inattention: 0 Disorganized thinkin Altered level of consciousness: 0 Eating (QC): 6 Oral Hygiene (QC): 6 Toileting Hygiene (QC): 6 Shower/Bathe Self (QC): 6 Upper Body Dressing (QC): 6 Lower Body Dressing (QC): 6 On/Off Footwear (QC): 6 Additional Goals: 1-Demonstrate ADL Tasks, 2-Verbalize Understanding, 3- ImproveStrength/Natalia 1=Demonstrate adherence to instructed precautions during ADL tasks. 2=Patient will verbalize/demonstrate understanding of assistive devices/modifications for ADL. 3=Patient will improve strength/tolerance for activity to enable patient to perform ADL's. OT Education/Plan Discharge Recommendations Plan/Recommendations: Continue POC Treatment Plan/Plan of Care Patient would benefit from OT for education, treatment and training to promote independence in ADL's, mobility, safety and/or upper extremity function for ADL's. Plan of Care: ADL Retraining, Functional Mobility, Group Exercise/Act as Ind, UE Funct Exercise/Act Treatment Duration: December 26, 2022 Frequency: At least 5 of 7 days/Wk (IRF) Estimated Hrs Per Day: 1.5 hours per day Agreement: Yes Rehab Potential: Good Time Start Time: 07:15 Stop Time: 07:30 DATE: December 08, 2022 Total Time Billed (hr/min): 15 Billed Treatment Time 1 visit ADL 1 (15min) Ifrah Church COTA December 08, 2022 08:52
[2022-12-08] MEDS: POVIDONE (BETADINE) 10% SOLN 240 ML BTL TOP SCH ×2 (09:01→21:54)
[2022-12-08] MEDS: HYPOCHLOROUS ACID/NaCl (VASHE) 250 ML IR SCH (09:01)
--- NOTE | 2022-12-08 09:08 | Progress Note - Cardiology ---
Cardiology SOAP Progress Note Subjective: Up with PT Reports increasing SOB with lose cough C/O increasing bilat LE swelling Objective: I&O/Vital Signs 12/09/22 12/09/22 12/09/22 12/09/22 02:22 07:44 07:44 07:56 Temp 36.7 Pulse 58 Resp 20 B/P (MAP) 118/58 (78) Pulse Ox 92 95 O2 Delivery Nasal Cannula Nasal Cannula Nasal Cannula Nasal Cannula O2 Flow Rate 2.50 2.50 2.50 2.50 12/09/22 09:44 Temp 36.7 Pulse 58 Pulse Ox 95 FiO2 28 12/09/22 00:00 Intake Total 800 ml Output Total 1150 ml Balance -350 ml Weight (Pounds): 211 Weight (Ounces): 3.0 Weight (Calculated Kilograms): [id number] Constitutional: AAO x 3, well-developed, well-nourished Respiratory: No accessory muscle use; chest expansion is symmetric, chest is bilaterally symmetric, other (fair to good, bilateral air entry; bibasilar crackles) Cardiovascular: irregularly irregular, S1 and S2, systolic murmur (soft RAYSHAWN at card base) Gastrointestional: No tender; soft; No guarding, No rebound; audible bowel sounds Extremities: swelling (Bilat LE pitting edema); No clubbing, No cyanosis Neurologic/Psychiatric: oriented x 3, other (moves all limbs) Skin: normal color, warm/dry; No cyanosis, No cool, No diaphoresis, No rash on exposed areas, No ulcerations on exposed areas Results/Procedures: Labs Laboratory Tests 12/09/22 05:14: Sodium Level 140, Potassium Level 4.3, Chloride Level 94L, Carbon Dioxide Level 35H, Anion Gap 11, Blood Urea Nitrogen 11, Creatinine 0.79, Estimat Glomerular Filtration Rate 98, BUN/Creatinine Ratio 14, Glucose Level 88, Calcium Level 8.6, Magnesium Level 2.0 A/P: Assessment: Ac resp failure (and transient PEA) due to spontaneous L pneumothorax due to ruptured bleb (treated at [facility] in ) Ac diastolic CHF, resolved - Echo of 12-05-22: LVEF 55-60%, PASP 30-35 mmHg PAF, currently NSR with PACs Ch COPD H/o heavy EtOH use H/o NICD but echo at [facility], is reported to have shown normal LVEF (Dr Rizzo's note of 11/29/22) H/o DELIA Plan: * Increasing SOB with increasing LE swelling - increase diuretics * Reports unable to wear NATALIE d/t * Continue amio, bb, OAC * Monitor labs and replace electrolytes as indicated JOE BRAVO December 08, 2022 09:08
[2022-12-08] MEDS ORDERED: FUROSEMIDE 40 MG/4 ML INJ (LASIX) IVP ONE (09:30)
--- NOTE | 2022-12-08 09:40 | Physical Therapy Daily Note ---
PT Daily Note-Current Subjective pt in recliner and willing for therapy. pt BLE noticeable more swollen this day. pt stated he had to have NATALIE hose cut off last night due to swelling. Dayday was going to Leg wrap after shower with cathy bandage but decided to go with tuba machinist supervisor outside. pt states his feet feel "tingly and do not work right" pt left in restr oom with call light and all needs met. Pain Section J - Health Conditions 1. Rarely or not at all 2. Occasionally 3. Frequently 4. Almost constantly 8. Unable to answer Pain Effect on Sleep: 0 Pain Interference with Therapy: 0 Pain Interference w/Day-to-Day: 0 Mental Status Patient Orientation: Person, Place, Time, Situation Transfers SCALE: Activities may be completed with or without assistive devices. 5-Yziaxdeoht-ijhkwyy completes the activity by him/herself with no assistance from a helper. 5-Set-up or Clean-up Assistance-helper sets up or cleans up; patient completes activity. [place] assists only prior to or following the activity. 4-Supervision or Touching Assistance-helper provides verbal cues and/or touching/steadying and/or contact guard assistance as patient completes activity. Assistance may be provided throughout the activity or intermittently. 3-Partial/Moderate Assistance-helper does LESS THAN HALF the effort. [place] lifts, holds or supports trunk or limbs, but provides less than half the effort. 2-Substantial/Maximal Assistance-helper does MORE THAN HALF the effort. [place] lifts or holds trunk or limbs and provides more than half the effort. 9-Wyewqjbeh-bpvrps does ALL the effort. Patient does none of the effort to complete the activity. Or, the assistance of 2 or more helpers is required for the patient to complete the activity. If activity was not attempted, code reason: 7-Patient Refused. 9-Not Applicable-not attempted and the patient did not perform the activity before the current illness, exacerbation or injury. 10-Not Attempted due to Environmental Limitations-(lack of equipment, weather restraints, etc.). 88-Not Attempted due to Medical Conditions or Safety Concerns. Roll Left & Right (QC): 6 Sit to Lying (QC): 6 Lying to Sitting/Side of Bed(Q: 6 Sit to Stand (QC): 6 Chair/Npu-eh-Mvcsi Xfer(QC): 6 Toilet Transfer (QC): 6 Car Transfer (QC): 6 Gait Training Walk 10 feet (QC): 6 Walk 50 ft with 2 Turns(QC): 6 Walk 150 ft (QC): 6 Walking 10ft/uneven surface-QC: 6 Exercises NuStep Minutes: 15 NuStep Workload: 2 Treatments Pt is able to ambulate 150ft with RW and supervision with Oxygen tank follow. pt did get fatigued and did require a rest break. pt is able to reform Nu-Step for 15 min level 2 with one rest break at 10 mins. but is able to resume after rest break. pt preformed sitting and standing BLE stretching with supervision Pt is working on standing tolerance with 2 min standing at this time, sitting rest after 2 mins. pt can repeat this 5 times. Assessment Current Status: Good Progress PT Riffler Tender Goals Riffler Tender Goals PT Riffler Tender Goals Time Frame: December 16, 2022 Roll Left & Right (QC): 6 Sit to Lying (QC): 6 Lying-Sitting on Side/Bed(QC): 6 Sit to Stand (QC): 6 Chair/Hox-kp-Evnot Xfer(QC): 6 Toilet Transfer (QC): 6 Car Transfer (QC): 6 Does the Patient Walk: Yes Walk 10 feet (QC): 6 Walk 50ft with 2 Turns (QC): 6 Walk 150 ft (QC): 6 Walking 10ft on Uneven Surface: 6 1 Step (curb) (QC): 6 4 Steps (QC): 6 12 Steps (QC): 6 Picking up an Object (QC): 6 Wheel 50 feet with 2 turns (QC: 9 Wheel 150 feet: 9 PT Plan Treatment/Plan Treatment Plan: Continue Plan of Care Treatment Plan: Concurrent Therapy, Functional Activity Natalia, Functional Strength, Transfers Treatment Duration: December 16, 2022 Frequency: At least 5 of 7 days/Wk (IRF) Estimated Hrs Per Day: 2 hours per day Time Time In: 0800 Time Out: 0930 DATE: December 08, 2022 Total Billed Treatment Time: 90 Total Billed Treatment 1 GT x 2 FA x 2 EX x 2 Cathy Hicks SUPERVISOR ROSE GRADING December 08, 2022 09:40
[2022-12-08] MEDS: RT-ALBUTEROL HFA 8.5 GM INHALER IH SCH ×3 (10:02→21:00)
[2022-12-08] MEDS: UMECLIDINIUM BROMIDE (INCRUSE ELLIPTA) 7'S IH SCH (10:02)
--- NOTE | 2022-12-08 10:19 | Occupational Ther Daily Note ---
OT Current Status-Daily Note Subjective Pt found in bathroom, took over from PT. Alert and cooperative, agreed to OT. Appearance Mental Status/Objective Patient Orientation: Person, Place, Time, Situation Attachments: Oxygen (2-3 L) ADL-Treatment Pt ambulated from toilet to shower transfer bench with FWW, independently. Pt showered and bathed self independently, seated 90% to clean body, pt stood to clean buttocks independently. Pt transferred out of shower to chair in bathroom with FWW independently. Pt sat at sink in chair and completed grooming independently. Pt then completed upper body dressing lower with set up assist. P t ambulated to chair in room. Pt took multiple recovery breaks throughout session. Pt completed 4 B UE exercises with 3 # dumbbells. Pt completed 2 sets of 10 reps of each exercise, taking small recovery breaks after each exercise as well as each set. Skilled instruction needed for correct technique and minimal verbal cues needed for correct form during exercises. Pt also completed theraputty bead activity (green medium resistance) to address fine motor coordination, hand and finger strengthening. Pt was left in room with feet raised in chair to help with swelling. Pt had call light and phone within reach,all needs met. Therapy Code Descriptions/Definitions Functional [place] Measure: 0=Not Assessed/NA 4=Minimal Assistance 1=Total Assistance 5=Supervision or Setup 2=Maximal Assistance 6=Modified [place] 3=Moderate Assistance 7=Complete IndependenceSCALE: Activities may be completed with or without assistive devices. 6-Luglnxcdlu-dspiwoc completes the activity by him/herself with no assistance from a helper. 5-Set-up or Clean-up Assistance-helper sets up or cleans up; patient completes activity. [place] assists only prior to or following the activity. 4-Supervision or Touching Assistance-helper provides verbal cues and/or touching/steadying and/or contact guard assistance as patient completes activity. Assistance may be provided throughout the activity or intermittently. 3-Partial/Moderate Assistance-helper does LESS THAN HALF the effort. [place] lifts, holds or supports trunk or limbs, but provides less than half the effort. 2-Substantial/Maximal Assistance-helper does MORE THAN HALF the effort. [place] lifts or holds trunk or limbs and provides more than half the effort. 1-Rcyxxcdeq-rrycyk does ALL the effort. Patient does none of the effort to complete the activity. Or, the assistance of 2 or more helpers is required for the patient to complete the activity. If activity was not attempted, code reason: 7-Patient Refused. 9-Not Applicable-not attempted and the patient did not perform the activity before the current illness, exacerbation or injury. 10-Not Attempted due to Environmental Limitations-(lack of equipment, weather restraints, etc.). 88-Not Attempted due to Medical Conditions or Safety Concerns. Eating (QC): 6 Oral Hygiene (QC): 6 (seated) Bathing Location: L Arm, R Arm, L Upper Leg, R Upper Leg, L Lower Leg (includin g foot), R Lower Leg (including foot), Chest, Abdomen, Buttocks, Perineal Area Shower/Bathe Self (QC): 6 Upper Body Dressing (QC): 5 Lower Body Dressing (QC): 5 On/Off Footwear: 5 Toileting Hygiene (QC): 6 Toilet Transfer (QC): 6 Education OT Patient Education: Energy conservation, Exercise program, Home exercise program, Modified ADL techniques Teaching Recipient: Patient Teaching Methods: Demonstration Response to Teaching: Verbalize Understanding OT Short Term Goals Short Term Goals Time Frame: December 12, 2022 Shower/bathe self: 5 Lower body dressin Putting on/taking off footwear: 5 OT [facility] Goals Human Resources Analyst Goals Time Frame: December 26, 2022 Acute change in mental status: 0 Inattention: 0 Disorganized thinkin Altered level of consciousness: 0 Eating (QC): 6 Oral Hygiene (QC): 6 Toileting Hygiene (QC): 6 Shower/Bathe Self (QC): 6 Upper Body Dressing (QC): 6 Lower Body Dressing (QC): 6 On/Off Footwear (QC): 6 Additional Goals: 1-Demonstrate ADL Tasks, 2-Verbalize Understanding, 3-ImproveStrength/Natalia 1=Demonstrate adherence to instructed precautions during ADL tasks. 2=Patient will verbalize/demonstrate understanding of assistive devices/modifications for ADL. 3=Patient will improve strength/tolerance for activity to enable patient to perf orm ADL's. OT Education/Plan Problem List/Assessment Assessment: Decreased Activ Tolerance, Decreased UE Strength Discharge Recommendations Plan/Recommendations: Continue POC Treatment Plan/Plan of Care Patient would benefit from OT for education, treatment and training to promote independence in ADL's, mobility, safety and/or upper extremity function for ADL's. Plan of Care: ADL Retraining, Functional Mobility, Group Exercise/Act as Ind, UE Funct Exercise/Act Treatment Duration: December 26, 2022 Frequency: At least 5 of 7 days/Wk (IRF) Estimated Hrs Per Day: 1.5 hours per day Agreement: Yes Rehab Potential: Good Time Start Time: 09:30 Stop Time: 10:45 DATE: December 08, 2022 Total Time Billed (hr/min): 75 Billed Treatment Time 1 visit ADL 3 (45) EX 2 (30) Ifrah Church COTA December 08, 2022 10:19
[2022-12-08] MEDS ORDERED: FUROSEMIDE 40 MG (LASIX) TAB PO NR (12:30)
[2022-12-08] MEDS ORDERED: KCL 20 MEQ TAB (K-DUR) PO NR (12:30)
--- NOTE | 2022-12-08 13:20 | Physical Therapy Daily Note ---
PT Daily Note-Current Subjective States to nursing that NATALIE hose are too tight and he cannot wear them. Pain Section J - Health Conditions 1. Rarely or not at all 2. Occasionally 3. Frequently 4. Almost constantly 8. Unable to answer Pain Effect on Sleep: 0 Pain Interference with Therapy: 0 Pain Interference w/Day-to-Day: 0 Appearance significant foot/lower leg 2+ edema (B) Transfers SCALE: Activities may be completed with or without assistive devices. 7-Wppfvbafhh-nwheqnd completes the activity by him/herself with no assistance from a helper. 5-Set-up or Clean-up Assistance-helper sets up or cleans up; patient completes activity. [place] assists only prior to or following the activity. 4-Supervision or Touching Assistance-helper provides verbal cues and/or touching/steadying and/or contact guard assistance as patient completes ac tivity. Assistance may be provided throughout the activity or intermittently. 3-Partial/Moderate Assistance-helper does LESS THAN HALF the effort. [place] lifts, holds or supports trunk or limbs, but provides less than half the effort. 2-Substantial/Maximal Assistance-helper does MORE THAN HALF the effort. [place] lifts or holds trunk or limbs and provides more than half the effort. 8-Hdbbculjg-gbgwfa does ALL the effort. Patient does none of the effort to complete the activity. Or, the assistance of 2 or more helpers is required for the patient to complete the activity. If activity was not attempted, code reason: 7-Patient Refused. 9-Not Applicable-not attempted and the patient did not perform the activity before the current illness, exacerbation or injury. 10-Not Attempted due to Environmental Limitations-(lack of equipment, weather restraints, etc.). 88-Not Attempted due to Medical Conditions or Safety Concerns. Treatments E-tubgrip measured from bend of knee to end of toes and extra length added to double over foot. Tubigrip cut and applied to (B) LE's to bend of knee, double lay over foot with toes exposed. Patient verbalized increased comfort after tubigrip was applied. Shoes donned for patient with max (A). Educated patient to keep feet elevated while sitting in recliner. Educated patient to alert nursing with increased SOB or new calf pain. Akila Alvarenga, nurse cable installation manager, present when tubigrip was applied. Assessment Tolerated E tubigrip well on (B) LE's. No pain reported after application. PT [facility] Goals Fci Goals PT [facility] Goals Time Frame: December 16, 2022 Roll Left & Right (QC): 6 Sit to Lying (QC): 6 Lying-Sitting on Side/Bed(QC): 6 Sit to Stand (QC): 6 Chair/Dlt-jt-Gmesj Xfer(QC): 6 Toilet Transfer (QC): 6 Car Transfer (QC): 6 Does the Patient Walk: Yes Walk 10 feet (QC): 6 Walk 50ft with 2 Turns (QC): 6 Walk 150 ft (QC): 6 Walking 10ft on Uneven Surface: 6 1 Step (curb) (QC): 6 4 Steps (QC): 6 12 Steps (QC): 6 Picking up an Object (QC): 6 Wheel 50 feet with 2 turns (QC: 9 Wheel 150 feet: 9 PT Plan Problem List Problem List: Other ((B) LE edema - patient cannot tolerate NATALIE hose.) Treatment/Plan Treatment Plan: Continue Plan of Care Treatment Plan: Concurrent Therapy, Functional Activity Natalia, Functional Strength, Transfers Treatment Duration: December 16, 2022 Frequency: At least 5 of 7 days/Wk (IRF) Estimated Hrs Per Day: 2 hours per day Discharge Recommendations Plan Will provided extra lengths of tubigrip for discharge. Recommend he acquire knee high compression socks once edema decreases with tubigrip. Time Time In: 1008 Time Out: 1018 DATE: December 08, 2022 Total Billed Treatment Time: 10 Total Billed Treatment 10' FA Kym Araujo PT December 08, 2022 13:20
[2022-12-08 20:15] VITALS: BP 110/59
[2022-12-09] MEDS: RT-ALBUTEROL HFA 8.5 GM INHALER IH SCH ×3 (02:22→20:10)
[2022-12-09 05:37] LABS: POTASSIUM 4.3 MMOL/L (3.6-5.0)
[2022-12-09 05:38] LABS: CALCIUM 8.6 MG/DL (8.5-10.1)
[2022-12-09 05:42] LABS: CREATININE SERUM 0.79 MG/DL (0.60-1.30)
--- NOTE | 2022-12-09 06:48 | PM&R Progress Note ---
Subjective HPI/CC On Admission Date Seen by Provider: December 09, 2022 Time Seen by Provider: 09:00 Subjective/Events-last exam 12/09/2022: Doing well overall Ready for DC tomorrow 12/08/2022: No major events No pain reported Improved breathing No falls 12/07/2022: Improved overall No pain reported Breathing well No falls 12/06/2022: Doing well i the independent room at bedside No pain Improved strength 12/05/2022: Patient doing well Focused on BM this am No pain reported Less dyspnea 12/04/2022: Doing really well Gaining function No falls Dyspnea improved No pain 12/03/2022: Doing well Improving with therapy No pain Wound care consulted Review of Systems General: Fatigue, Malaise Objective Exam Vital Signs Vital Signs Date Time Temp Pulse Resp B/P (MAP) Pulse Ox O2 Delivery O2 Flow Rate FiO2 12/09/22 20:50 94 Nasal Cannula 2.50 12/09/22 20:15 36.4 69 20 121/58 (79) 12/09/22 09:44 28 Capillary Refill : General Appearance: No Apparent Distress, WD/WN, Chronically ill HEENT: PERRL/EOMI, Normal ENT Inspection, Pharynx Normal Neck: Full Range of Motion, Normal Inspection, Non Tender, Supple, Carotid Bruit Respiratory: Chest Non Tender, No Accessory Muscle Use, No Respiratory Distress, Crackles, Decreased Breath Sounds, Wheezing Cardiovascular: Regular Rate, Rhythm, No Gallop, No JVD, No Murmur, Normal Peripheral Pulses Gastrointestinal: Normal Bowel Sounds, No Organomegaly, No Pulsatile Mass, Non Tender, Soft Back: Normal Inspection, No CVA Tenderness, No Vertebral Tenderness Extremity: Normal Capillary Refill, Normal Inspection, Normal Range of Motion, Non Tender, No Calf Tenderness, Pedal Edema Neurologic/Psychiatric: Alert, Oriented x3, Normal Mood/Affect, forming acid dumper II-XII Norm as Tested, Abnormal Gait, Motor Weakness (generalized) Skin: Normal Color, Warm/Dry Lymphatic: No Adenopathy Results/Procedures Lab Laboratory Tests 12/09/22 05:14 Patient resulted labs reviewed. FIM Transfers Therapy Code Descriptions/Definitions Functional [place] Measure: 0=Not Assessed/NA 4=Minimal Assistance 1=Total Assistance 5=Supervision or Setup 2=Maximal Assistance 6=Modified [place] 3=Moderate Assistance 7=Complete IndependenceSCALE: Activities may be completed with or without assistive devices. 1-Qjnlcldbnq-uipsuzz completes the activity by him/herself with no assistance from a helper. 5-Set-up or Clean-up Assistance-helper sets up or cleans up; patient completes activity. [place] assists only prior to or following the activity. 4-Supervision or Touching Assistance-helper provides verbal cues and/or touching/steadying and/or contact guard assistance as patient completes activity. Assistance may be provided throughout the activity or intermittently. 3-Partial/Moderate Assistance-helper does LESS THAN HALF the effort. [place] lifts, holds or supports trunk or limbs, but provides less than half the effort. 2-Substantial/Maximal Assistance-helper does MORE THAN HALF the effort. [place] lifts or holds trunk or limbs and provides more than half the effort. 5-Nwxxpagba-crpiew does ALL the effort. Patient does none of the effort to complete the activity. Or, the assistance of 2 or more helpers is required for the patient to complete the activity. If activity was not attempted, code reason: 7-Patient Refused. 9-Not Applicable-not attempted and the patient did not perform the activity before the current illness, exacerbation or injury. 10-Not Attempted due to Environmental Limitations-(lack of equipment, weather restraints, etc.). 88-Not Attempted due to Medical Conditions or Safety Concerns. Roll Left to Right (QC): 6 Sit to Lying (QC): 6 Sit to Stand (QC): 6 Chair/Wxg-bj-Nlyps Xfer(QC): 6 Car Transfer (QC): 6 Gait Training Does the Patient Walk?: Yes Distance: 250' x 2 50' x2 Walk 10 feet (QC): 6 Walk 50 ft with 2 Turns(QC): 6 Walk 150 ft (QC): 6 Walking 10ft/uneven surface-QC: 6 Gait Assistive Device: FWW Stair Training 1 Step (curb) (QC): 3 4 Steps (QC): 3 12 Steps (QC): 3 Mental Status/Objective Comprehension: 5 Expression: 6 Social Interaction: 6 Problem Solvin Memory: 5 ADL-Treatment Eating (QC): 6 Oral Hygiene (QC): 6 (seated) Bathing Location: L Arm, R Arm, L Upper Leg, R Upper Leg, L Lower Leg (including foot), R Lower Leg (including foot), Chest, Abdomen, Buttocks, Perineal Area Shower/Bathe Self (QC): 6 Upper Body Dressing (QC): 5 Lower Body Dressing (QC): 5 On/Off Footwear (QC): 5 Toileting Hygiene (QC): 6 Toilet Transfer (QC): 6 Assessment/Plan Assessment and Plan Assess & Plan/Chief Complaint Assessment: Debility following cardiac arrest 11/06/22 Left sided PTX s/p chest tube now residual SQ emphysema AF HTN HLP COPD DELIA non-compliant with CPAP Chest wall wound Plan: PT OT Home meds Monitor closely 12/03/2022: Monitor closely Cardiology consulted 12/04/2022: Monitor closely 12/05/2022: CXR ok Use IS Nebs 12/06/2022: Monitor O2 Nebs 12/07/2022: Monitor closely 12/08/2022: Continue wound care 12/09/2022: DC tomorrow (1) Respiratory failure Status: Acute TABATHA JOHNSON DO December 09, 2022 06:48
[2022-12-09] MEDS: UMECLIDINIUM BROMIDE (INCRUSE ELLIPTA) 7'S IH SCH (07:43)
[2022-12-09 07:56] VITALS: BP 118/58
[2022-12-09] MEDS: HYPOCHLOROUS ACID/NaCl (VASHE) 250 ML IR PRN (08:06)
[2022-12-09] MEDS: THIAMINE 100 MG (VITAMIN B-1) TAB PO SCH (08:07)
[2022-12-09] MEDS: APIXABAN 5 MG (ELIQUIS) TABLET PO SCH ×2 (08:07→20:57)
[2022-12-09] MEDS: POVIDONE (BETADINE) 10% SOLN 240 ML BTL TOP SCH ×2 (08:07→20:58)
[2022-12-09] MEDS: AMIODARONE 200 MG (CORDARONE) TAB PO SCH (08:07)
[2022-12-09] MEDS: FOLIC ACID 1 MG TAB PO SCH (08:07)
[2022-12-09] MEDS: FUROSEMIDE 40 MG (LASIX) TAB PO SCH (08:07)
[2022-12-09] MEDS: MAGNESIUM OXIDE (MAG-OX)400 MG TAB PO SCH ×2 (08:07→20:56)
[2022-12-09] MEDS: MULTIVITAMINS LIQUID 15 ML UDC PO SCH (08:08)
[2022-12-09] MEDS: polyethylene glycoL POWDER 17 GM (MIRALAX) PACK PO SCH ×2 (08:08→20:57)
[2022-12-09] MEDS: SENNA W/DOCUSATE (SENOKOT S) TABLET PO SCH ×2 (08:08→20:57)
[2022-12-09] MEDS: DOCUSATE SODIUM 100 MG (COLACE) CAP PO SCH ×2 (08:08→20:57)
[2022-12-09 09:44] VITALS: BP 118/58
[2022-12-09] MEDS: HYPOCHLOROUS ACID/NaCl (VASHE) 250 ML IR SCH (09:51)
--- NOTE | 2022-12-09 09:58 | Occupational Ther Daily Note ---
OT Current Status-Daily Note Subjective Pt found in room in chair, alert and cooperative. Agreed to OT. Mental Status/Objective Patient Orientation: Person, Place, Time, Situation Attachments: Oxygen (2-3 L) ADL-Treatment Pt ambulated to bathroom, FWW, independently. Pt completed toileting transfer, toilet hygiene, grooming and oral hygiene all independently using FWW. Pt ambulated back to chair in room with FWW, independently. Pt is independent with upper body dressing and lower lower body dressing as demonstrated in previous session. Pt also independent with donning and doffing footwear. Pt educated on benefits of walker basket and plan to use in treatment later today. Pt has demonstrated showering and bathing independently in previous session. Pt navigates room with FWW and managing tubing very well independently. Pt completed theraputty activity to address fine motor, dexterity, and coordination. Pt was left in room with call light and phone within reach. All needs met in room. Therapy Code Descriptions/Definitions Functional [place] Measure: 0=Not Assessed/NA 4=Minimal Assistance 1=Total Assistance 5=Supervision or Setup 2=Maximal Assistance 6=Modified [place] 3=Moderate Assistance 7=Complete IndependenceSCALE: Activities may be completed with or without assistive devices. 5-Kztomfzubd-smewjmj completes the activity by him/herself with no assistance from a helper. 5-Set-up or Clean-up Assistance-helper sets up or cleans up; patient completes activity. [place] assists only prior to or following the activity. 4-Supervision or Touching Assistance-helper provides verbal cues and/or touching/steadying and/or contact guard assistance as patient completes activity. Assistance may be provided throughout the activity or intermittently. 3-Partial/Moderate Assistance-helper does LESS THAN HALF the effort. [place] lifts, holds or supports trunk or limbs, but provides less than half the effort. 2-Substantial/Maximal Assistance-helper does MORE THAN HALF the effort. [place] lifts or holds trunk or limbs and provides more than half the effort. 9-Mprtltmui-agrtwj does ALL the effort. Patient does none of the effort to complete the activity. Or, the assistance of 2 or more helpers is required for the patient to complete the activity. If activity was not attempted, code reason: 7-Patient Refused. 9-Not Applicable-not attempted and the patient did not perform the activity before the current illness, exacerbation or injury. 10-Not Attempted due to Environmental Limitations-(lack of equipment, weather restraints, etc.). 88-Not Attempted due to Medical Conditions or Safety Concerns. Eating (QC): 6 Oral Hygiene (QC): 6 Bathing Location: L Arm, R Arm, L Upper Leg, R Upper Leg, L Lower Leg (including foot), R Lower Leg (including foot), Chest, Abdomen, Buttocks, Perineal Area Shower/Bathe Self (QC): 6 Upper Body Dressing (QC): 6 Lower Body Dressing (QC): 6 On/Off Footwear: 6 Toileting Hygiene (QC): 6 Toilet Transfer (QC): 6 Education Teaching Recipient: Patient Teaching Methods: Demonstration Response to Teaching: Verbalize Understanding BIMS CAM BIMS Expression of Ideas and Wants: Without Difficulty Understanding Verbal Content: Understands Brief Interview/Mental Status: Yes IRF KASH BIMS: IRF KASH BIMS Response (Comments) Value Repitition of Three Words Three 3 Recalls Socks Yes, No Cue Required 2 Recalls Blue Yes, No Cue Required 2 Recalls Bed Yes, No Cue Required 2 Year Correct 3 Month Accurate Within 5 Days 2 Day Correct 1 Total 15 Patient Normally Able to Recal: Current Session, Location of own room, Staff Names and faces, That he/she in a [facility] Should Staff Asses. Mental St.: No Memory/Recall Ability: Current Season, Location of Own Room, Staff Names and Faces, That He/She in [facility] Mental Status Change/Baseline: 0 Inattention: 0 Disorganized thinkin Altered level of consciousness: 0 OT Short Term Goals Short Term Goals Time Frame: December 12, 2022 Shower/bathe self: 5 Lower body dressin Putting on/taking off footwear: 5 OT Supervisor [employer] Goals Jail Goals Time Frame: December 26, 2022 Acute change in mental status: 0 Inattention: 0 Disorganized thinkin Altered level of consciousness: 0 Eating (QC): 6 (met) Oral Hygiene (QC): 6 (met) Toileting Hygiene (QC): 6 (met) Shower/Bathe Self (QC): 6 (met) Upper Body Dressing (QC): 6 (met) Lower Body Dressing (QC): 6 (met) On/Off Footwear (QC): 6 (met) Additional Goals: 1-Demonstrate ADL Tasks, 2-Verbalize Understanding, 3- ImproveStrength/Natalia 1=Demonstrate adherence to instructed precautions during ADL tasks. 2=Patient will verbalize/demonstrate understanding of assistive devices/modifications for ADL. 3=Patient will improve strength/tolerance for activity to enable patient to perform ADL's. OT Education/Plan Discharge Recommendations Plan/Recommendations: Continue POC Treatment Plan/Plan of Care Patient would benefit from OT for education, treatment and training to promote independence in ADL's, mobility, safety and/or upper extremity function for ADL's. Plan of Care: ADL Retraining, Functional Mobility, Group Exercise/Act as Ind, UE Funct Exercise/Act Treatment Duration: December 26, 2022 Frequency: At least 5 of 7 days/Wk (IRF) Estimated Hrs Per Day: 1.5 hours per day Agreement: Yes Rehab Potential: Good Time Start Time: 08:50 Stop Time: 09:25 DATE: December 09, 2022 Total Time Billed (hr/min): 35 Billed Treatment Time 1 visit ADL 1(15) Ex 1(20) [employer] COTA December 09, 2022 09:58
--- NOTE | 2022-12-09 10:07 | Physical Therapy Daily Note ---
PT Daily Note-Current Subjective pt in room upon arrival and willing for therapy. pt reported no pain before during or after therapy this day. pt was left in room in recliner with call light and all needs met. Pain Section J - Health Conditions 1. Rarely or not at all 2. Occasionally 3. Frequently 4. Almost constantly 8. Unable to answer Pain Effect on Sleep: 0 Pain Interference with Therapy: 0 Pain Interference w/Day-to-Day: 0 Transfers SCALE: Activities may be completed with or without assistive devices. 3-Dkyxgqpebs-hefsrhs completes the activity by him/herself with no assistance from a helper. 5-Set-up or Clean-up Assistance-helper sets up or cleans up; patient completes activity. [place] assists only prior to or following the activity. 4-Supervision or Touching Assistance-helper provides verbal cues and/or touching/steadying and/or contact guard assistance as patient completes activity. Assistance may be provided throughout the activity or intermittently. 3-Partial/Moderate Assistance-helper does LESS THAN HALF the effort. [place] lifts, holds or supports trunk or limbs, but provides less than half the effort. 2-Substantial/Maximal Assistance-helper does MORE THAN HALF the effort. [place] lifts or holds trunk or limbs and provides more than half the effort. 6-Ongauhdct-fohwzd does ALL the effort. Patient does none of the effort to complete the activity. Or, the assistance of 2 or more helpers is required for the patient to complete the activity. If activity was not attempted, code reason: 7-Patient Refused. 9-Not Applicable-not attempted and the patient did not perform the activity before the current illness, exacerbation or injury. 10-Not Attempted due to Environmental Limitations-(lack of equipment, weather restraints, etc.). 88-Not Attempted due to Medical Conditions or Safety Concerns. Roll Left & Right (QC): 6 Sit to Lying (QC): 6 Lying to Sitting/Side of Bed(Q: 6 Sit to Stand (QC): 6 Chair/Ull-no-Hxxvb Xfer(QC): 6 Toilet Transfer (QC): 6 Car Transfer (QC): 6 Stair Training 1 Step (curb) (QC): 6 4 Steps (QC): 6 12 Steps (QC): 6 Exercises NuStep Minutes: 10 NuStep Workload: 2 Treatments Pt is able to preform car transfer with independence No VC needed or LOB this day. pt is able to ambulate on uneven surfaces this day with RW independently with no LOB and no VC needed. Pt executed Nu-step with 10 min interval with no rest showing increased endurance level. Assessment Current Status: Good Progress PT Nursing Home Goals [employer] Reporter Goals PT Nursing Home Goals Time Frame: December 16, 2022 Roll Left & Right (QC): 6 Sit to Lying (QC): 6 Lying-Sitting on Side/Bed(QC): 6 Sit to Stand (QC): 6 Chair/Iyc-ct-Ijmhk Xfer(QC): 6 Toilet Transfer (QC): 6 Car Transfer (QC): 6 Does the Patient Walk: Yes Walk 10 feet (QC): 6 Walk 50ft with 2 Turns (QC): 6 Walk 150 ft (QC): 6 Walking 10ft on Uneven Surface: 6 1 Step (curb) (QC): 6 4 Steps (QC): 6 12 Steps (QC): 6 Picking up an Object (QC): 6 Wheel 50 feet with 2 turns (QC: 9 Wheel 150 feet: 9 PT Plan Treatment/Plan Treatment Plan: Continue Plan of Care Treatment Plan: Concurrent Therapy, Functional Activity Natalia, Functional Strength, Transfers Treatment Duration: December 16, 2022 Frequency: At least 5 of 7 days/Wk (IRF) Estimated Hrs Per Day: 2 hours per day Time Time In: 0930 Time Out: 1000 DATE: December 09, 2022 Total Billed Treatment Time: 30 Total Billed Treatment 1 GT EX Cathy Hicks TALENT DEVELOPMENT SPECIALIST December 09, 2022 10:07
--- NOTE | 2022-12-09 10:18 | Progress Note - Cardiology ---
Cardiology SOAP Progress Note Subjective: Sitting up in recliner at the bedside States he feels well this morning and likely will go home tomorrow Less dyspneic with conversation today Objective: I&O/Vital Signs 12/10/22 12/10/22 12/10/22 06:59 07:00 07:38 Temp 36.3 Pulse 65 Resp 18 B/P (MAP) 110/59 (76) Pulse Ox 92 94 O2 Delivery Nasal Cannula Nasal Cannula Room Air O2 Flow Rate 2.50 2.50 12/10/22 00:00 Intake Total 794 ml Balance 794 ml Weight (Pounds): 211 Weight (Ounces): 3.0 Weight (Calculated Kilograms): [id number] Constitutional: AAO x 3, well-developed, well-nourished Respiratory: No accessory muscle use; chest expansion is symmetric, chest is bilaterally symmetric, other (fair to good, bilateral air entry; bibasilar crackles) Cardiovascular: irregularly irregular, S1 and S2, systolic murmur (soft RAYSHAWN at card base) Gastrointestional: No tender; soft; No guarding, No rebound; audible bowel sounds Extremities: swelling (mild to mod LE swelling (improved)); No clubbing, No cyanosis Neurologic/Psychiatric: oriented x 3, other (moves all limbs) Skin: normal color, warm/dry; No cyanosis, No cool, No diaphoresis, No rash on exposed areas, No ulcerations on exposed areas Results/Procedures: Labs A/P: Assessment: Ac resp failure (and transient PEA) due to spontaneous L pneumothorax due to ruptured bleb (treated at [facility] in ) Ac diastolic CHF, resolved - Echo of 12-05-22: LVEF 55-60%, PASP 30-35 mmHg PAF, currently NSR with PACs Ch COPD H/o heavy EtOH use H/o NICD but echo at [facility], is reported to have shown normal LVEF (Dr Rizzo's note of 11/29/22) H/o DELIA Plan: * Good response to diuretics yesterday - LE swelling and SOB improved - continue current regimen * Continue amio, bb, OAC * Monitor labs and replace electrolytes as indicated * Likely d/c home tomorrow - out pt f/u advised in 2 weeks JOE BRAVO December 09, 2022 10:18
[2022-12-09] MEDS ORDERED: FURO40TA4 PO (10:19)
--- NOTE | 2022-12-09 13:20 | Occupational Ther Daily Note ---
OT Current Status-Daily Note Subjective Pt found in room with . Family trainin/education cotx with PT 30 (mins) ADL-Treatment PT focused on demonstrating compression socks application, gait, steps and other concerns family had. OT recommended shower chair bench at home with hand rails on sides, as well as basket for walker to retrieve items and carry items around the house. Pt and family education on HEP handout and pt going home with theraband as well as theraputty. Pt and family verbalized understanding and had no further questions or concerns. Pt left in room with phone and call light within reach, all needs met. Therapy Code Descriptions/Definitions Functional [place] Measure: 0=Not Assessed/NA 4=Minimal Assistance 1=Total Assistance 5=Supervision or Setup 2=Maximal Assistance 6=Modified [place] 3=Moderate Assistance 7=Complete IndependenceSCALE: Activities may be completed with or without assistive devices. 7-Uhfjxorack-gepxxvc completes the activity by him/herself with no assistance from a helper. 5-Set-up or Clean-up Assistance-helper sets up or cleans up; patient completes activity. [place] assists only prior to or following the activity. 4-Supervision or Touching Assistance-helper provides verbal cues and/or touching/steadying and/or contact guard assistance as patient completes activity. Assistance may be provided throughout the activity or intermittently. 3-Partial/Moderate Assistance-helper does LESS THAN HALF the effort. [place] lifts, holds or supports trunk or limbs, but provides less than half the effort. 2-Substantial/Maximal Assistance-helper does MORE THAN HALF the effort. [place] lifts or holds trunk or limbs and provides more than half the effort. 2-Zqherdvqf-dlmnnf does ALL the effort. Patient does none of the effort to complete the activity. Or, the assistance of 2 or more helpers is required for the patient to complete the activity. If activity was not attempted, code reason: 7-Patient Refused. 9-Not Applicable-not attempted and the patient did not perform the activity before the current illness, exacerbation or injury. 10-Not Attempted due to Environmental Limitations-(lack of equipment, weather restraints, etc.). 88-Not Attempted due to Medical Conditions or Safety Concerns. Education OT Patient Education: Energy conservation, Home exercise program Teaching Recipient: Patient, Family Teaching Methods: Demonstration, Handout Response to Teaching: Verbalize Understanding OT Short Term Goals Short Term Goals Time Frame: December 12, 2022 Shower/bathe self: 5 Lower body dressin Putting on/taking off footwear: 5 OT Fpc Goals Fpc Goals Time Frame: December 26, 2022 Acute change in mental status: 0 Inattention: 0 Disorganized thinkin Altered level of consciousness: 0 Eating (QC): 6 (met) Oral Hygiene (QC): 6 (met) Toileting Hygiene (QC): 6 (met) Shower/Bathe Self (QC): 6 (met) Upper Body Dressing (QC): 6 (met) Lower Body Dressing (QC): 6 (met) On/Off Footwear (QC): 6 (met) Additional Goals: 1-Demonstrate ADL Tasks, 2-Verbalize Understanding, 3- ImproveStrength/Natalia 1=Demonstrate adherence to instructed precautions during ADL tasks. 2=Patient will verbalize/demonstrate understanding of assistive devices/modifications for ADL. 3=Patient will improve strength/tolerance for activity to enable patient to perform ADL's. OT Education/Plan Discharge Recommendations Plan/Recommendations: Continue POC Treatment Plan/Plan of Care Patient would benefit from OT for education, treatment and training to promote independence in ADL's, mobility, safety and/or upper extremity function for ADL's. Plan of Care: ADL Retraining, Functional Mobility, Group Exercise/Act as Ind, UE Funct Exercise/Act Treatment Duration: December 26, 2022 Frequency: At least 5 of 7 days/Wk (IRF) Estimated Hrs Per Day: 1.5 hours per day Agreement: Yes Rehab Potential: Good Time Start Time: 11:30 Stop Time: 12:00 DATE: December 09, 2022 Total Time Billed (hr/min): 30 Billed Treatment Time COTX 30 mins 1 visit ADL 2 (30 min) [employer] COTA December 09, 2022 13:20
--- NOTE | 2022-12-09 13:36 | Occupational Ther Daily Note ---
OT Current Status-Daily Note Subjective Pt found in room in chair, alert and cooperative. no pain mentioned Mental Status/Objective Patient Orientation: Person, Place, Time, Situation ADL-Treatment Pt completed cone retrieval using wheelchair basket. Pt ambulated around the room navigating the oxygen tubing just fine, pt completed this retrieval independently. Pt also completed B UE exercises with 3 # wts, 15 reps 2 sets. Pt ambulated to bathroom with FWW independently. Pt completed toilet transfer, toiler hygiene with FWW independently. Pt ambulated back to chair in room with FWW independently. Pt was left in room with call light and phone within reach. All needs met in room. Therapy Code Descriptions/Definitions Functional Brandon Measure: 0=Not Assessed/NA 4=Minimal Assistance 1=Total Assistance 5=Supervision or Setup 2=Maximal Assistance 6=Modified Brandon 3=Moderate Assistance 7=Complete IndependenceSCALE: Activities may be completed with or without assistive devices. 1-Ehrygfomry-imcqxll completes the activity by him/herself with no assistance from a helper. 5-Set-up or Clean-up Assistance-helper sets up or cleans up; patient completes activity. [place] assists only prior to or following the activity. 4-Supervision or Touching Assistance-helper provides verbal cues and/or touching/steadying and/or contact guard assistance as patient completes activity. Assistance may be provided throughout the activity or intermittently. 3-Partial/Moderate Assistance-helper does LESS THAN HALF the effort. [place] lifts, holds or supports trunk or limbs, but provides less than half the effort. 2-Substantial/Maximal Assistance-helper does MORE THAN HALF the effort. [place] lifts or holds trunk or limbs and provides more than half the effort. 4-Vjsgfpneg-arykvj does ALL the effort. Patient does none of the effort to compl ete the activity. Or, the assistance of 2 or more helpers is required for the patient to complete the activity. If activity was not attempted, code reason: 7-Patient Refused. 9-Not Applicable-not attempted and the patient did not perform the activity before the current illness, exacerbation or injury. 10-Not Attempted due to Environmental Limitations-(lack of equipment, weather restraints, etc.). 88-Not Attempted due to Medical Conditions or Safety Concerns. Toileting Hygiene (QC): 6 Toilet Transfer (QC): 6 Education Teaching Recipient: Patient Teaching Methods: Demonstration Response to Teaching: Verbalize Understanding OT Short Term Goals Short Term Goals Time Frame: December 12, 2022 Shower/bathe self: 5 Lower body dressin Putting on/taking off footwear: 5 OT Usp Goals Usp Goals Time Frame: December 26, 2022 Acute change in mental status: 0 Inattention: 0 Disorganized thinkin Altered level of consciousness: 0 Eating (QC): 6 (met) Oral Hygiene (QC): 6 (met) Toileting Hygiene (QC): 6 (met) Shower/Bathe Self (QC): 6 (met) Upper Body Dressing (QC): 6 (met) Lower Body Dressing (QC): 6 (met) On/Off Footwear (QC): 6 (met) Additional Goals: 1-Demonstrate ADL Tasks, 2-Verbalize Understanding, 3- ImproveStrength/Natalia 1=Demonstrate adherence to instructed precautions during ADL tasks. 2=Patient will verbalize/demonstrate understanding of assistive devices/modifications for ADL. 3=Patient will improve strength/tolerance for activity to enable patient to perform ADL's. OT Education/Plan Discharge Recommendations Plan/Recommendations: Continue POC Treatment Plan/Plan of Care Patient would benefit from OT for education, treatment and training to promote independence in ADL's, mobility, safety and/or upper extremity function for ADL's. Plan of Care: ADL Retraining, Functional Mobility, Group Exercise/Act as Ind, UE Funct Exercise/Act Treatment Duration: December 26, 2022 Frequency: At least 5 of 7 days/Wk (IRF) Estimated Hrs Per Day: 1.5 hours per day Agreement: Yes Rehab Potential: Good Time Start Time: 10:22 Stop Time: 10:50 DATE: December 09, 2022 Total Time Billed (hr/min): 25 Billed Treatment Time 1 visit EX 2 (25 mins) Ifrah [employer] COTA December 09, 2022 13:36
--- NOTE | 2022-12-09 15:27 | Progress Note - Cardiology ---
Cardiology SOAP Progress Note Subjective: No cp or palp or syncope No n/v/d Gen weakness improving Shortness of breath improving Objective: I&O/Vital Signs 12/09/22 12/09/22 12/09/22 12/09/22 07:44 07:44 07:56 09:44 Temp 36.7 36.7 Pulse 58 58 Resp 20 B/P (MAP) 118/58 (78) Pulse Ox 92 95 95 O2 Delivery Nasal Cannula Nasal Cannula Nasal Cannula O2 Flow Rate 2.50 2.50 2.50 FiO2 28 12/09/22 10:10 O2 Delivery Nasal Cannula O2 Flow Rate 2.50 12/08/22 23:59 Intake Total 800 ml Output Total 1150 ml Balance -350 ml Weight (Pounds): 211 Weight (Ounces): 3.0 Weight (Calculated Kilograms): [id number] Constitutional: AAO x 3, well-developed, well-nourished Respiratory: No accessory muscle use; chest expansion is symmetric, chest is bilaterally symmetric, other (fair to good, bilateral air entry; bibasilar crackles) Cardiovascular: irregularly irregular, S1 and S2, systolic murmur (soft RAYSHAWN at card base) Gastrointestional: No tender; soft; No guarding, No rebound; audible bowel sounds Extremities: swelling (mild to mod LE swelling (improved)); No clubbing, No cyanosis Neurologic/Psychiatric: oriented x 3, other (moves all limbs) Skin: normal color, warm/dry; No cyanosis, No cool, No diaphoresis, No rash on exposed areas, No ulcerations on exposed areas Results/Procedures: Labs Laboratory Tests 12/09/22 05:14: Sodium Level 140, Potassium Level 4.3, Chloride Level 94L, Carbon Dioxide Level 35H, Anion Gap 11, Blood Urea Nitrogen 11, Creatinine 0.79, Estimat Glomerular Filtration Rate 98, BUN/Creatinine Ratio 14, Glucose Level 88, Calcium Level 8.6, Magnesium Level 2.0 Laboratory Tests 12/08/22 07:10 12/09/22 05:14 A/P: Assessment: Ac resp failure (and transient PEA) due to spontaneous L pneumothorax due to ruptured bleb (treated at [facility] in ) in November 2022 Ac diastolic CHF, resolved - Echo of 12-05-22: LVEF 55-60%, PASP 30-35 mmHg PAF, currently NSR with PACs Ch COPD H/o heavy EtOH use H/o NICD but echo at [facility], , is reported to have shown normal LVEF (Dr Rizzo's note of 11/29/22) H/o DELIA Plan: * Good response to diuretics yesterday - LE swelling and SOB improved - continue current regimen * Continue amio, bb, OAC * Monitor labs and replace electrolytes as indicated * Likely d/c home tomorrow - out pt f/u advised in 2 weeks NADIR ORTEGA MD FACP FAC CCDS December 09, 2022 15:27
[2022-12-09 20:15] VITALS: BP 121/58
[2022-12-10] MEDS ORDERED: MGX400T PO (05:18)
[2022-12-10] MEDS ORDERED: [UNRECOGNIZED DRUG - CODE] PO (05:18)
[2022-12-10] MEDS ORDERED: FOLI1TAB33 PO (05:18)
[2022-12-10] MEDS ORDERED: HYDR-3820 PO (05:18)
[2022-12-10] MEDS ORDERED: THIA100T80 PO (05:18)
--- NOTE | 2022-12-10 05:21 | D/C HH Face to Face Order ---
D/C Face to Face Orders Reconcile Patient Problems Problems Reviewed?: Yes Instructions for Patient Via [facility], Patient Instructions/FollowUp: Fidencio as scheduled Physician to follow Patient: Fidencio Discharge Diet for Home: No Restrictions Patient Problems: Debility Respiratory arrest Patient Data-Allergies,Ht & Wt Patient Allergies: Coded Allergies: NATALY Inhibitors (Verified Allergy, Unknown, 08/12/19) angioedema Height (Feet): 5 Height (Inches): 10.00 Weight (Pounds): 211 Weight (Ounces): 3.0 Home Health Need/Face to Face Date of Face to Face: December 10, 2022 Clinical Findings: Generalized weakness and fatigue, Muscle weakness, Shortness of breath, Unsteady gait I have seen Pt brfw-al-[id number]: Yes Discharged To: Home Diagnosis/Conditions: Debility Respiratory arrest Patient is Homebound due to: Shortness of breath/distress Homebound Status Due to the above stated illness, injury or surgical procedure (medical condition or diagnosis) and associated clinical findings, the patient is homebound because of his/her inability to leave home except with aid of a supportive device and/or person AND leaving the home requires a considerable and taxing effort or is medically contraindicated. Pt req the following assistanc: [facility] Home Health Nursing Orders Home Health Services Order: Nursing Services, Insulating Machine Operator-Evaluate & Treat, Physical Therapy-Evaluate & Treat Certify Stmt I certify that this patient is under my care and that I, a nurse practitioner or a physician; a bilingual medical assistant working with me, had a face to face encounter that - meets the physician face to face encounter requirements with this patient as dated. TABATHA JOHNSON DO December 10, 2022 05:21
--- NOTE | 2022-12-10 05:22 | Discharge Summary ---
Diagnosis/Chief Complaint Date of Admission December 02, 2022 at 15:30 Date of Discharge Discharge Date: December 10, 2022 Discharge Diagnosis Assessment: Debility following cardiac arrest 11/06/22 Left sided PTX s/p chest tube now residual SQ emphysema AF HTN HLP COPD DELIA non-compliant with CPAP Chest wall wound Plan: PT OT Home meds Monitor closely 12/03/2022: Monitor closely Cardiology consulted 12/04/2022: Monitor closely 12/05/2022: CXR ok Use IS Nebs 12/06/2022: Monitor O2 Nebs 12/07/2022: Monitor closely 12/08/2022: Continue wound care 12/09/2022: DC tomorrow (1) Respiratory failure Discharge Summary Discharge Physical Examination Allergies: Coded Allergies: NATALY Inhibitors (Verified Allergy, Unknown, 08/12/19) angioedema Vitals & I&Os Vital Signs Date Time Temp Pulse Resp B/P (MAP) Pulse Ox O2 Delivery O2 Flow Rate FiO2 12/10/22 10:17 36.3 65 18 110/59 94 Nasal Cannula 2.50 12/09/22 09:44 28 General Appearance: Alert, Oriented X3, Cooperative Respiratory: Clear to Auscultation Psych/Mental Status: Mental Status NL Hospital Course Was the Problem List Reviewed?: Yes Uneventful course after he was admitted from [facility] following respiratory and cardiac arrest in our ER. Patient was maintained on vent and ultimately required left chest tube placement and subsequent wound which was managed here on ARU. Overall he was able to regain function with AD with ambulation and Cardiology was consulted and modified meds. Overall he had a productive course and was DC on HH. Labs (last 24 hrs) Laboratory Tests 12/03/22 00:00: White Blood Count 13.2H, Red Blood Count 2.93L, Hemoglobin 9.7L, Hematocrit 29L, Mean Corpuscular Volume 100H, Mean Corpuscular Hemoglobin 33, Mean Corpuscular Hemoglobin Concent 33, Red Cell Distribution Width 12.6, Platelet Count 167, Mean Platelet Volume 10.4, Immature Granulocyte % (Auto) 2, Neutrophils (%) (Auto) 73, Lymphocytes (%) (Auto) 9L, Monocytes (%) (Auto) 7, Eosinophils (%) (Auto) 9, Basophils (%) (Auto) 0, Neutrophils # (Auto) 9.7H, Lymphocytes # (Auto) 1.1, Monocytes # (Auto) 0.9, Eosinophils # (Auto) 1.2H, Basophils # (Aut o) 0.1, Immature Granulocyte # (Auto) 0.3H 12/03/22 06:34: Sodium Level 138, Potassium Level 4.2, Chloride Level 95L, Carbon Dioxide Level 32, Anion Gap 11, Blood Urea Nitrogen 8, Creatinine 0.72, Estimat Glomerular Filtration Rate 101, BUN/Creatinine Ratio 11, Glucose Level 82, Calcium Level 8.3L, Corrected Calcium 9.3, Total Bilirubin 0.7, Aspartate Amino Transf (AST/SGOT) 27, Alanine Aminotransferase (ALT/SGPT) 43, Alkaline Phosphatase 121, Total Protein 5.5L, Albumin 2.8L 12/05/22 05:01: Sodium Level 139, Potassium Level 3.7, Chloride Level 94L, Carbon Dioxide Level 39H, Anion Gap 6, Blood Urea Nitrogen 11, Creatinine 0.79, Estimat Glomerular Filtration Rate 98, BUN/Creatinine Ratio 14, Glucose Level 109H, Calcium Level 7.9L, Magnesium Level 1.9 12/08/22 07:10: White Blood Count 10.3, Red Blood Count 2.97L, Hemoglobin 9.8L, Hematocrit 30L, Mean Corpuscular Volume 99, Mean Corpuscular Hemoglobin 33, Mean Corpuscular Hemoglobin Concent 33, Red Cell Distribution Width 12.7, Platelet Count 200, Mean Platelet Volume 10.1, Immature Granulocyte % (Auto) 1, Neutrophils (%) (Auto) 70, Lymphocytes (%) (Auto) 12, Monocytes (%) (Auto) 8, Eosinophils (%) (Auto) 8, Basophils (%) (Auto) 1, Neutrophils # (Auto) 7.3, Lymphocytes # (Auto) 1.3, Monocytes # (Auto) 0.8, Eosinophils # (Auto) 0.9H, Basophils # (Auto) 0.1, Immature Granulocyte # (Auto) 0.1, Sodium Level 138, Potassium Level 4.0, Chloride Level 93L, Carbon Dioxide Level 32, Anion Gap 13, Blood Urea Nitrogen 11, Creatinine 0.82, Estimat Glomerular Filtration Rate 97, BUN/Creatinine Ratio 13, Glucose Level 100, Calcium Level 8.6, Corrected Calcium 9.3, Total Bilirubin 0.5, Aspartate Amino Transf (AST/SGOT) 18, Alanine Aminotransferase (ALT/SGPT) 29, Alkaline Phosphatase 116, Total Protein 6.0L, Albumin 3.1L 12/09/22 05:14: Sodium Level 140, Potassium Level 4.3, Chloride Level 94L, Carbon Dioxide Level 35H, Anion Gap 11, Blood Urea Nitrogen 11, Creatinine 0.79, Estimat Glomerular Filtration Rate 98, BUN/Creatinine Ratio 14, Glucose Level 88, Calcium Level 8.6 , Magnesium Level 2.0 Pending Labs Laboratory Tests 12/03/22 00:00: White Blood Count 13.2, Red Blood Count 2.93, Hemoglobin 9.7, Hematocrit 29, Mean Corpuscular Volume 100, Mean Corpuscular Hemoglobin 33, Mean Corpuscular Hemoglobin Concent 33, Red Cell Distribution Width 12.6, Platelet Count 167, Mean Platelet Volume 10.4, Immature Granulocyte % (Auto) 2, Neutrophils (%) (Auto) 73, Lymphocytes (%) (Auto) 9, Monocytes (%) (Auto) 7, Eosinophils (%) (Auto) 9, Basophils (%) (Auto) 0, Neutrophils # (Auto) 9.7, Lymphocytes # (Auto) 1.1, Monocytes # (Auto) 0.9, Eosinophils # (Auto) 1.2, Basophils # (Auto) 0.1, Immature Granulocyte # (Auto) 0.3 12/03/22 06:34: Sodium Level 138, Potassium Level 4.2, Chloride Level 95, Carbon Dioxide Level 32, Anion Gap 11, Blood Urea Nitrogen 8, Creatinine 0.72, Estimat Glomerular Filtration Rate 101, BUN/Creatinine Ratio 11, Glucose Level 82, Calcium Level 8.3, Corrected Calcium 9.3, Total Bilirubin 0.7, Aspartate Amino Transf (AST/SGOT) 27, Alanine Aminotransferase (ALT/SGPT) 43, Alkaline Phosphatase 121, Total Protein 5.5, Albumin 2.8 12/05/22 05:01: Sodium Level 139, Potassium Level 3.7, Chloride Level 94, Carbon Dioxide Level 39, Anion Gap 6, Blood Urea Nitrogen 11, Creatinine 0.79, Estimat Glomerular Filtration Rate 98, BUN/Creatinine Ratio 14, Glucose Level 109, Calcium Level 7.9, Magnesium Level 1.9 12/08/22 07:10: White Blood Count 10.3, Red Blood Count 2.97, Hemoglobin 9.8, Hematocrit 30, Mean Corpuscular Volume 99, Mean Corpuscular Hemoglobin 33, Mean Corpuscular Hemoglobin Concent 33, Red Cell Distribution Width 12.7, Platelet Count 200, Mean Platelet Volume 10.1, Immature Granulocyte % (Auto) 1, Neutrophils (%) (Auto) 70, Lymphocytes (%) (Auto) 12, Monocytes (%) (Auto) 8, Eosinophils (%) (Auto) 8, Basophils (%) (Auto) 1, Neutrophils # (Auto) 7.3, Lymphocytes # (Auto) 1.3, Monocytes # (Auto) 0.8, Eosinophils # (Auto) 0.9, Basophils # (Auto) 0.1, Immature Granulocyte # (Auto) 0.1, Sodium Level 138, Potassium Level 4.0, Chloride Level 93, Carbon Dioxide Level 32, Anion Gap 13, Blood Urea Nitrogen 11, Creatinine 0.82, Estimat Glomerular Filtration Rate 97, BUN/Creatinine Ratio 13, Glucose Level 100, Calcium Level 8.6, Corrected Calcium 9.3, Total Bilirubin 0.5, Aspartate Amino Transf (AST/SGOT) 18, Alanine Aminotransferase (ALT/SGPT) 29, Alkaline Phosphatase 116, Total Protein 6.0, Albumin 3.1 12/09/22 05:14: Sodium Level 140, Potassium Level 4.3, Chloride Level 94, Carbon Dioxide Level 35, Anion Gap 11, Blood Urea Nitrogen 11, Creatinine 0.79, Estimat Glomerular Filtration Rate 98, BUN/Creatinine Ratio 14, Glucose Level 88, Calcium Level 8.6, Magnesium Level 2.0 Discharge Home Medications: Active Scripts Active Stiolto Respimat Inhal Bonesteel (Tiotropium Br/Olodaterol HCl) 2.5 Mcg-2.5 Mcg/Actuation Mist.inhal 2 Puff IH DAILY Metoprolol Succinate 25 Mg Tab.er.24h 25 Mg PO DAILY [facility] Multiv[facility]-Min Liq (Multivits W-Min/Ferrous Gluc) 9 Mg Iron/15 Ml Liquid 5 Ml PO DAILY Magnesium Oxide 400 Mg (241.3 Mg Magnesium) Tablet 400 Mg PO BID Vitamin B-1 (Thiamine HCl) 100 Mg Tablet 100 Mg PO DAILY Hydrocodone-Acetamin 10-325 mg (Hydrocodone/Acetaminophen) 10 Mg-325 Mg Tablet 1 Each PO Q4H PRN Folic Acid 1 Mg Tablet 1 Mg PO DAILY Furosemide 40 Mg Tablet 40 Mg PO DAILY Reported Eliquis (Apixaban) 5 Mg Tablet 5 Mg PO BID Amiodarone HCl 200 Mg Tablet 200 Mg PO DAILY Ventolin Hfa (Albuterol Sulfate) 90 Mcg Hfa.aer.ad 2 Puff INH BID Albuterol Sulfate 2.5 Mg/0.5 Ml Vial.neb 2.5 Mg INH Q6H PRN Ventolin Hfa (Albuterol Sulfate) 90 Mcg Hfa.aer.ad 2 Puff INH Q4H PRN Instructions to patient/family Please see electronic discharge instructions given to patient. Diagnosis/Problems Diagnosis/Problems (1) Respiratory failure Status: Acute TABATHA JOHNSON DO December 10, 2022 05:22
[2022-12-10] MEDS: UMECLIDINIUM BROMIDE (INCRUSE ELLIPTA) 7'S IH SCH (06:50)
[2022-12-10] MEDS: RT-ALBUTEROL HFA 8.5 GM INHALER IH SCH (06:51)
[2022-12-10 07:38] VITALS: BP 110/59
[2022-12-10] MEDS: FUROSEMIDE 40 MG (LASIX) TAB PO SCH (08:22)
[2022-12-10] MEDS: MAGNESIUM OXIDE (MAG-OX)400 MG TAB PO SCH (08:22)
[2022-12-10] MEDS: FOLIC ACID 1 MG TAB PO SCH (08:22)
[2022-12-10] MEDS: MULTIVITAMINS LIQUID 15 ML UDC PO SCH (08:22)
[2022-12-10] MEDS: THIAMINE 100 MG (VITAMIN B-1) TAB PO SCH (08:22)
[2022-12-10] MEDS: APIXABAN 5 MG (ELIQUIS) TABLET PO SCH (08:23)
[2022-12-10] MEDS: SENNA W/DOCUSATE (SENOKOT S) TABLET PO SCH (08:31)
[2022-12-10] MEDS: DOCUSATE SODIUM 100 MG (COLACE) CAP PO SCH (08:31)
[2022-12-10] MEDS: AMIODARONE 200 MG (CORDARONE) TAB PO SCH (08:31)
[2022-12-10] MEDS: polyethylene glycoL POWDER 17 GM (MIRALAX) PACK PO SCH (08:31)
[2022-12-10] MEDS: HYPOCHLOROUS ACID/NaCl (VASHE) 250 ML IR PRN (08:32)
--- NOTE | 2022-12-10 08:56 | Physical Therapy Daily Note ---
PT Daily Note-Current Subjective pt in recliner upon arrival. willing for therapy this day. Pain Section J - Health Conditions 1. Rarely or not at all 2. Occasionally 3. Frequently 4. Almost constantly 8. Unable to answer Pain Effect on Sleep: 0 Pain Interference with Therapy: 0 Pain Interference w/Day-to-Day: 0 Transfers SCALE: Activities may be completed with or without assistive devices. 9-Bcbfncvihy-ltzzcru completes the activity by him/herself with no assistance from a helper. 5-Set-up or Clean-up Assistance-helper sets up or cleans up; patient completes activity. [place] assists only prior to or following the activity. 4-Supervision or Touching Assistance-helper provides verbal cues and/or touching/steadying and/or contact guard assistance as patient completes activity. Assistance may be provided throughout the activity or intermittently. 3-Partial/Moderate Assistance-helper does LESS THAN HALF the effort. [place] lifts, holds or supports trunk or limbs, but provides less than half the effort. 2-Substantial/Maximal Assistance-helper does MORE THAN HALF the effort. [place] lifts or holds trunk or limbs and provides more than half the effort. 2-Kwwwalert-awlkku does ALL the effort. Patient does none of the effort to com plete the activity. Or, the assistance of 2 or more helpers is required for the patient to complete the activity. If activity was not attempted, code reason: 7-Patient Refused. 9-Not Applicable-not attempted and the patient did not perform the activity before the current illness, exacerbation or injury. 10-Not Attempted due to Environmental Limitations-(lack of equipment, weather restraints, etc.). 88-Not Attempted due to Medical Conditions or Safety Concerns. Treatments Pt is able to ambulate 400FT with RW independently with therapist following for O2 management. pt did get SOB and required sitting rest breaks and preformed pursed lip breathing. O2 was WFL at all times. pt did not loose balance at any point while ambulating. Assessment Current Status: Excellent Progress PT Snf Goals Air Intercept Controller Goals PT Snf Goals Time Frame: December 16, 2022 Roll Left & Right (QC): 6 Sit to Lying (QC): 6 Lying-Sitting on Side/Bed(QC): 6 Sit to Stand (QC): 6 Chair/Srb-cy-Zwkyh Xfer(QC): 6 Toilet Transfer (QC): 6 Car Transfer (QC): 6 Does the Patient Walk: Yes Walk 10 feet (QC): 6 Walk 50ft with 2 Turns (QC): 6 Walk 150 ft (QC): 6 Walking 10ft on Uneven Surface: 6 1 Step (curb) (QC): 6 4 Steps (QC): 6 12 Steps (QC): 6 Picking up an Object (QC): 6 Wheel 50 feet with 2 turns (QC: 9 Wheel 150 feet: 9 PT Plan Treatment/Plan Treatment Plan: Continue Plan of Care Treatment Plan: Concurrent Therapy, Functional Activity Natalia, Functional Strength, Transfers Treatment Duration: December 16, 2022 Frequency: At least 5 of 7 days/Wk (IRF) Estimated Hrs Per Day: 2 hours per day Time Time In: 1300 Time Out: 1325 DATE: December 09, 2022 Total Billed Treatment Time: 25 Total Billed Treatment 1 GT x 2 Cathy Hicks CORRECTIONAL SUBSTANCE ABUSE COUNSELOR December 10, 2022 08:56
--- NOTE | 2022-12-10 09:01 | Physical Therapy Daily Note ---
PT Daily Note-Current Subjective PT in recliner upon entering with for family DC information and training this day. pt and family understood education given to them. Pain Section J - Health Conditions 1. Rarely or not at all 2. Occasionally 3. Frequently 4. Almost constantly 8. Unable to answer Pain Effect on Sleep: 0 Pain Interference with Therapy: 0 Pain Interference w/Day-to-Day: 0 Mental Status Patient Orientation: Person, Place, Time, Listless Transfers SCALE: Activities may be completed with or without assistive devices. 3-Zzcxpivezk-jdydpcg completes the activity by him/herself with no assistance from a helper. 5-Set-up or Clean-up Assistance-helper sets up or cleans up; patient completes activity. [place] assists only prior to or following the activity. 4-Supervision or Touching Assistance-helper provides verbal cues and/or touching/steadying and/or contact guard assistance as patient completes activity. Assistance may be provided throughout the activity or intermittently. 3-Partial/Moderate Assistance-helper does LESS THAN HALF the effort. [place] l ifts, holds or supports trunk or limbs, but provides less than half the effort. 2-Substantial/Maximal Assistance-helper does MORE THAN HALF the effort. [place] lifts or holds trunk or limbs and provides more than half the effort. 7-Mryxwplyu-bfwjqy does ALL the effort. Patient does none of the effort to complete the activity. Or, the assistance of 2 or more helpers is required for t he patient to complete the activity. If activity was not attempted, code reason: 7-Patient Refused. 9-Not Applicable-not attempted and the patient did not perform the activity before the current illness, exacerbation or injury. 10-Not Attempted due to Environmental Limitations-(lack of equipment, weather restraints, etc.). 88-Not Attempted due to Medical Conditions or Safety Concerns. Treatments pt was educated with him and his about energy conservation techniques. O2 Tubing management. tubi director of restaurants compression don and doffing. Pt did not have any question or concerns for discharge at this time. Co-Treat with OT about safety precautions and procures for the future was needed for a safe and effective home transition. PT Prison Goals Prison Goals PT Prison Goals Time Frame: December 16, 2022 Roll Left & Right (QC): 6 Sit to Lying (QC): 6 Lying-Sitting on Side/Bed(QC): 6 Sit to Stand (QC): 6 Chair/Tce-fo-Cjjsu Xfer(QC): 6 Toilet Transfer (QC): 6 Car Transfer (QC): 6 Does the Patient Walk: Yes Walk 10 feet (QC): 6 Walk 50ft with 2 Turns (QC): 6 Walk 150 ft (QC): 6 Walking 10ft on Uneven Surface: 6 1 Step (curb) (QC): 6 4 Steps (QC): 6 12 Steps (QC): 6 Picking up an Object (QC): 6 Wheel 50 feet with 2 turns (QC: 9 Wheel 150 feet: 9 PT Plan Treatment/Plan Treatment Plan: Continue Plan of Care Treatment Plan: Concurrent Therapy, Functional Activity Natalia, Functional Strength, Transfers Treatment Duration: December 16, 2022 Frequency: At least 5 of 7 days/Wk (IRF) Estimated Hrs Per Day: 2 hours per day Time Time In: 1130 Time Out: 1205 DATE: December 09, 2022 Total Billed Treatment Time: 35 Total Billed Treatment 1 FA x 2 Cot treat with OT from 11:30 to 12:05 for discharge family planning. Cathy Hicks CLINICAL PRODUCT MANAGER December 10, 2022 09:00
[2022-12-10 10:17] VITALS: BP 110/59
[2022-12-10] MEDS ORDERED: MTP25TSR PO (10:46)
[2022-12-10] MEDS ORDERED: TIOT4MIS3 IH (10:48)
--- NOTE | 2022-12-12 11:35 | Therapy Team Discharge Summary ---
Therapy Discharge Summary Discharge Recommendations Date of Discharge December 10, 2022 at 10:15 Physical Therapy Roll Left to Right (QC): 6 Sit to Lying (QC): 6 Lying to Sitting/Side of Bed(Q: 6 Sit to Stand (QC): 6 Chair/Crj-cc-Relwe Xfer(QC): 6 Toilet Transfer (QC): 6 Car Transfer (QC): 6 Does the Patient Walk: Yes Walk 10 feet (QC): 6 Walk 50 ft with 2 Turns(QC): 6 Walk 150 ft (QC): 6 Walking 10ft on uneven surface: 6 Gait Assistive Device: FWW 1 Step (curb) (QC): 6 4 Steps (QC): 6 12 Steps (QC): 6 Occupational Therapy Pt admitted to ARU with debility/pneumothorax. At [facility], pt was independent with ADLs and functional mobility, no AD. Upon initial evaluation, pt was independent with eating, required set up with oral care and UE dressing, CGA showering, LE dressing and toileting and min A footwear. OT tx focused on increasing BUE Strength and activity tolerance, and increasing safety with ADLs and functional mobility. Pt made good progress towards goals, attaining IND level with all ADLs. Pt discharged home, d/c from OT. Decreased Activ Tolerance, Decreased UE Strength Eating (QC): 6 Oral Hygiene (QC): 6 Shower/Bathe Self (QC): 6 Upper Body Dressing (QC): 6 Lower Body Dressing (QC): 6 On/Off Footwear (QC): 6 Toileting Hygiene (QC): 6 PT National Sales Director Goals Senior Care Goals PT National Sales Director Goals Time Frame: December 16, 2022 Roll Left to Right (QC): 6 Sit to Lying (QC): 6 Lying-Sitting on Side/Bed(QC): 6 Sit to Stand (QC): 6 Chair/Lvq-sc-Njqaz Xfer(QC): 6 Toilet/Commode Transfer (QC): 6 Car Transfer (QC): 6 Does the Patient Walk: Yes Walk 10 feet (QC): 6 Walk 10ft-Uneven Surface(QC): 6 Walk 50ft with 2 Turns (QC): 6 Walk 150 ft (QC): 6 Wheel 50 feet with 2 turns (QC: 9 Wheel 150 feet: 9 1 Step (curb) (QC): 6 4 Steps (QC): 6 12 Steps (QC): 6 Picking up an Object (QC): 6 OT National Sales Director Goals Senior Care Goals Time Frame: December 26, 2022 Acute change in mental status: 0 Inattention: 0 Disorganized thinkin Altered level of consciousness: 0 Eating (QC): 6 (met) Oral Hygiene (QC): 6 (met) Toileting Hygiene (QC): 6 (met) Shower/Bathe Self (QC): 6 (met) Upper Body Dressing (QC): 6 (met) Lower Body Dressing (QC): 6 (met) On/Off Footwear (QC): 6 (met) Additional Goals: 1-Demonstrate ADL Tasks, 2-Verbalize Understanding, 3-ImproveStrength/Natalia 1=Demonstrate adherence to instructed precautions during ADL tasks. 2=Patient will verbalize/demonstrate understanding of assistive devices/modifications for ADL. 3=Patient will improve strength/tolerance for activity to enable patient to perform ADL's. GENOVEVA WOODWARD OT December 12, 2022 11:35
--- NOTE | 2022-12-12 13:12 | Therapy Team Discharge Summary ---
Therapy Discharge Summary Discharge Recommendations Date of Discharge December 10, 2022 at 10:15 Physical Therapy Patient admitted to ARU 12/02/[address] and 11/06/22 and pneumothorax. At the time of D/C, patient was (I) with all bed mobility, all transfers with use of a FWW and (I) with all gait with FWW for distances up to 400 feet. Patient using portable O2 for all mobility. Patient able to ascend/descend curb with FWW (I), and ascend/descend 12 steps (I) with rails. He was also able to pick an object off the floor without a device (I). Family training was completed with juarez. O2 and functional mobility. Also, E tubigrip was placed on lower legs for edema, doubled at foot. Handout given for Dr. Kaba compression (8-15 mmg) socks for wear at home to prevent foot/ankle/lower leg swelling. Roll Left to Right (QC): 6 Sit to Lying (QC): 6 Lying to Sitting/Side of Bed(Q: 6 Sit to Stand (QC): 6 Chair/Npk-gs-Xlirh Xfer(QC): 6 Toilet Transfer (QC): 6 Car Transfer (QC): 6 Does the Patient Walk: Yes Walk 10 feet (QC): 6 Walk 50 ft with 2 Turns(QC): 6 Walk 150 ft (QC): 6 Walking 10ft on uneven surface: 6 Distance: up to 400' with FWW Gait Assistive Device: FWW 1 Step (curb) (QC): 6 4 Steps (QC): 6 12 Steps (QC): 6 Occupational Therapy Decreased Activ Tolerance, Decreased UE Strength Eating (QC): 6 Oral Hygiene (QC): 6 Shower/Bathe Self (QC): 6 Upper Body Dressing (QC): 6 Lower Body Dressing (QC): 6 On/Off Footwear (QC): 6 Toileting Hygiene (QC): 6 PT Fdc Goals Hat Sizer Goals PT Fdc Goals Time Frame: December 16, 2022 Roll Left to Right (QC): 6 Sit to Lying (QC): 6 Lying-Sitting on Side/Bed(QC): 6 Sit to Stand (QC): 6 Chair/Tpj-vr-Duwer Xfer(QC): 6 Toilet/Commode Transfer (QC): 6 Car Transfer (QC): 6 Does the Patient Walk: Yes Walk 10 feet (QC): 6 Walk 10ft-Uneven Surface(QC): 6 Walk 50ft with 2 Turns (QC): 6 Walk 150 ft (QC): 6 Wheel 50 feet with 2 turns (QC: 9 Wheel 150 feet: 9 1 Step (curb) (QC): 6 4 Steps (QC): 6 12 Steps (QC): 6 Picking up an Object (QC): 6 OT Hat Sizer Goals Fdc Goals Time Frame: December 26, 2022 Acute change in mental status: 0 Inattention: 0 Disorganized thinkin Altered level of consciousness: 0 Eating (QC): 6 (met) Oral Hygiene (QC): 6 (met) Toileting Hygiene (QC): 6 (met) Shower/Bathe Self (QC): 6 (met) Upper Body Dressing (QC): 6 (met) Lower Body Dressing (QC): 6 (met) On/Off Footwear (QC): 6 (met) Additional Goals: 1-Demonstrate ADL Tasks, 2-Verbalize Understanding, 3-ImproveStrength/Natalia 1=Demonstrate adherence to instructed precautions during ADL tasks. 2=Patient will verbalize/demonstrate understanding of assistive devices/modifications for ADL. 3=Patient will improve strength/tolerance for activity to enable patient to perform ADL's. Kym Araujo PT December 12, 2022 13:12
== END 2022-12-10 10:15 | disposition home health service (06) | DRG 948 ==
PROVIDERS: ADMIT Internal Medicine; ATTEND Internal Medicine
DX: R53.81 Other malaise (principal); E46 Unspecified protein-calorie malnutrition; J44.9 Chronic obstructive pulmonary disease, unspecified; G47.33 Obstructive sleep apnea (adult) (pediatric); I48.0 Paroxysmal atrial fibrillation; M10.9 Gout, unspecified; I10 Essential (primary) hypertension; E78.5 Hyperlipidemia, unspecified; T81.82XA Emphysema (subcutaneous) resulting from a procedure, initial encounter; D64.9 Anemia, unspecified; Z91.199 Patient's noncompliance with other medical treatment and regimen due to unspecified reason; Z87.891 Personal history of nicotine dependence; Z68.27 Body mass index [BMI] 27.0-27.9, adult
CPT/HCPCS: 36415; 71046; 80048; 80053; 83735; 85025; 93005; 93306; 94640; 94760; 94761

== ENCOUNTER → 2022-12-15 | Outpatient (CLI) | payer MEDICARE, OTHER ==
[~2022-12-15] MED LIST changes: +ALBU18HF2 INH; +FOLI1TAB33 PO; +HYDR-3820 PO; +MGX400T PO; +MTP25TSR PO; +THIA100T80 PO; +TIOT4MIS3 IH; +[UNRECOGNIZED DRUG - CODE] PO
== END ==
LOC: WOUNDCARE 08:57
PROVIDERS: ATTEND Family Medicine
DX: T79.7XXA Traumatic subcutaneous emphysema, initial encounter (principal); S27.0XXA Traumatic pneumothorax, initial encounter; I46.8 Cardiac arrest due to other underlying condition
CPT/HCPCS: 99213

== ENCOUNTER 2023-05-03 15:56 | Inpatient (IN) | payer MEDICARE, OTHER ==
[~2023-05-03] VITALS: Ht 177.8 cm; Wt 96.3 kg
[~2023-05-03 15:56] MED LIST changes: +POTA-330 PO; -POTA-51 PO
[2023-05-03 16:29] LABS: BASOPHILS # (AUTO) 0.1 10^3/uL (0.0-0.1); BASOPHILS % (AUTO) 0 % (0-10); EOSINOPHILS % (AUTO) 0 % (0-10); HEMATOCRIT 43 % (40-54); HEMOGLOBIN 14.1 g/dL (13.3-17.7); LYMPHOCYTES # (AUTO) 0.6 X 10^3 (1.0-4.0); LYMPHOCYTES % (AUTO) 2 % (12-44); MEAN CORPUSCULAR HEMOGLOBIN 32 pg (25-34); MEAN CORPUSCULAR HGB CONC 33 g/dL (32-36); MEAN CORPUSCULAR VOLUME 96 fL (80-99); MONOCYTES # (AUTO) 2.1 X 10^3 (0.0-1.0); MONOCYTES % (AUTO) 7 % (0-12); NEUTROPHILS # (AUTO) 29.2 X 10^3 (1.8-7.8); NEUTROPHILS % (AUTO) 91 % (42-75); PLATELET COUNT 203 10^3/uL (130-400)
[2023-05-03 16:30] LABS: WHITE BLOOD COUNT 32.1 10^3/uL (4.3-11.0)
[2023-05-03] MEDS ORDERED: ACETAMINOPHEN 500 MG TABLET PO ONE (16:30)
[2023-05-03 16:38] LABS: ALBUMIN 4.4 GM/DL (3.2-4.5); POTASSIUM 4.1 MMOL/L (3.6-5.0)
[2023-05-03 16:39] LABS: CALCIUM 9.2 MG/DL (8.5-10.1)
--- NOTE | 2023-05-03 16:40 | Diagnostic Imaging Report ---
EXAMINATION: Chest radiograph, portable AP view. DATE: 05/03/2023 4:37 PM INDICATION: 67-year-old male, cough and shortness of breath. COMPARISON: November 06, 2022 FINDINGS: Heart size and mediastinal contours are unchanged. There is no identified pneumothorax. There is no large pleural effusion. There are chronic appearing right rib deformities. There are streaky opacities in left midlung. IMPRESSION: 1. Streaky opacities in the left midlung which may relate to atelectasis and/or infiltrate. Dictated by: Dictated on workstation # [id number]
[2023-05-03 16:41] LABS: INR 1.2 (0.8-1.4); PROTHROMBIN TIME PATIENT 15.6 SEC (12.2-14.7); TOTAL PROTEIN 7.1 GM/DL (6.4-8.2)
[2023-05-03 16:42] LABS: BILIRUBIN,TOTAL 2.8 MG/DL (0.1-1.0)
[2023-05-03 16:44] LABS: CREATININE SERUM 1.32 MG/DL (0.60-1.30)
[2023-05-03 17:01] LABS: ANISOCYTOSIS SLIGHT; BAND NEUTROPHILS 15 %; BASOPHILS % (MANUAL) 0 %; EOSINOPHILS % (MANUAL) 0 %; LYMPHOCYTES % (MANUAL) 5 %; MONOCYTES % (MANUAL) 6 %; NEUTROPHILS % (MANUAL) 74 %; STOMATOCYTES SLIGHT
[2023-05-03] MEDS ORDERED: MEROPENEM INJECTION 1,000 MG in NS (IVPB) 100 ML 100 ML IV ONE (17:30)
[2023-05-03] MEDS ORDERED: NS IV 1000 ML 1,000 ML IV SCH ×2 (18:15→20:15)
--- NOTE | 2023-05-03 18:19 | ED General ---
General Chief Complaint: Respiratory Problems Stated Complaint: SOA/FEVER/CONGESTION Nursing Triage Note: PT AMB TO RM 9 WITH COMPLAINT OF SOA, CONGESTION. STATES STARTED YESTERDAY. HAS BEEN IN [place] THE LAST FEW DAYS AND DROVE HOME TODAY. Source of Information: Patient Exam Limitations: No Limitations History of Present Illness Date Seen by Provider: May 03, 2023 Time Seen by Provider: 16:08 Initial Comments This 67-year-old gentleman presents to the emergency room with flulike symptoms including fever, cough, sputum production, and shortness of breath. Symptoms started yesterday about noon. He has had chills and is notably febrile during assessment here with temperature of 40 C. He normally only uses supplemental oxygen by nasal cannula at night but is requiring 1 to 3 L by nasal cannula now to keep his oxygen saturations around 93%. He does not report any chest pain. He has been in [place] the last few days and drove home today. He has history of paroxysmal atrial fibrillation and takes Eliquis with his last dose being this morning. He reports using his albuterol nebulizers at home without much benefit. He also uses his maintenance inhalers. He has history of an anaphylactic episode from Rocephin administration in November. He developed several complications from this incident resulting in prolonged intubation. He was transferred to [facility] in [place] and returned to our facility at [facility] in [place] for rehab. He denies any nausea, vomiting, or diarrhea. His primary care provider is Dr. Nicolas. His residential construction instructor is Dr. Carty. Allergies and Home Medications Allergies Coded Allergies: ceftriaxone (Verified Allergy, Severe, Anaphylaxis, 05/03/23) NATALY Inhibitors (Verified Allergy, Unknown, 08/12/19) angioedema Patient Home Medication List Home Medication List Reviewed: Yes Albuterol Sulfate (Ventolin Hfa) 90 Mcg Hfa.aer.ad, 2 PUFF INH Q4H PRN for SHORTNESS OF BREATH, (Reported) Entered as Reported by: CARLO CHOE on 07/16/17 0753 Albuterol Sulfate (Albuterol Sulfate) 2.5 Mg/0.5 Ml Vial.neb, 2.5 MG INH Q6H PRN for SHORTNESS OF BREATH, (Reported) Entered as Reported by: YAMILE KRUSE on 09/16/22 1136 Albuterol Sulfate (Ventolin Hfa) 90 Mcg Hfa.aer.ad, 2 PUFF INH BID, (Reported) Entered as Reported by: YAMILE KRUSE on 12/02/221612 Amiodarone HCl (Amiodarone HCl) 200 Mg Tablet, 200 MG PO DAILY, (Reported) Entered as Reported by: YAMILE KRUSE on 12/02/22 161 Apixaban (Eliquis) 5 Mg Tablet, 5 MG PO BID, (Reported) Entered as Reported by: YAMILE KRUSE on 12/02/221612 Folic Acid (Folic Acid) 1 Mg Tablet, 1 MG PO DAILY Prescribed by: TABATHA JOHNSON on 12/10/22 05 Furosemide (Furosemide) 40 Mg Tablet, 40 MG PO DAILY Prescribed by: JOE BRAVO on 12/09/22 1019 Hydrocodone/Acetaminophen (Hydrocodone-Acetamin 10-325 mg) 10 Mg-325 Mg Tablet, 1 EACH PO Q4H PRN for PAIN-MODERATE (5-7) Prescribed by: TABATHA JOHNSON on 12/10/22 05 Magnesium Oxide (Magnesium Oxide) 400 Mg (241.3 Mg Magnesium) Tablet, 400 MG PO BID Prescribed by: TABATHA JOHNSON on 12/10/22 05 Metoprolol Succinate (Metoprolol Succinate) 25 Mg Tab.er.24h, 25 MG PO DAILY Prescribed by: TABATHA JOHNSON on 12/10/22 1046 Multivits W-Min/Ferrous Gluc (Centram-Care Multivit-Min Liq) 9 Mg Iron/15 Ml Liquid, 5 ML PO DAILY Prescribed by: TABATHA JOHNSON on 12/10/22 05 Thiamine HCl (Vitamin B-1) 100 Mg Tablet, 100 MG PO DAILY Prescribed by: TABATHA JOHNSON on 12/10/22 05 Tiotropium Br/Olodaterol HCl (Stiolto Respimat Inhal [place]) 2.5 Mcg-2.5 Mcg/A ctuation Mist.inhal, 2 PUFF IH DAILY Prescribed by: TABATHA JOHNSON on 12/10/22 1048 Review of Systems Review of Systems Constitutional: see HPI, chills, diaphoresis, fever EENTM: no symptoms reported Respiratory: see HPI Cardiovascular: no symptoms reported Gastrointestinal: no symptoms reported Genitourinary: no symptoms reported Musculoskeletal: no symptoms reported Skin: no symptoms reported Psychiatric/Neurological: No Symptoms Reported Hematologic/Lymphatic: No Symptoms Reported Past Cqmafls-Fkmpza-Ymsbcg Hx Patient Social History Tobacco Use?: No Smoking Status: Former Smoker Use of E-Cig and/or Vaping dev: No Substance use?: No Alcohol Use?: No Pt feels they are or have been: No Immunizations Up To Date Tetanus Booster (TDap): Less than 5yrs First/Initial COVID19 Vaccinat: PHIZER Second COVID19 Vaccination Viktor: PHIZER Third COVID19 Vaccination Date: PHIZER Seasonal Allergies Seasonal Allergies: No Past Medical History Surgery/Hospitalization HX: Bilateral rotator cuff repair, 2015 cardiac ablation (aflutter), Surgeries: Yes (CARDIAC ABLATION; ROTATOR CUFF REPAIR ) Cardiac (Cardiac ablation for atrial fibrillation), Orthopedic Respiratory: Yes Pneumonia, Sleep Apnea (Uses supplemental oxygen by nasal cannula at night), COPD Currently Using CPAP: No (DOESN'T WEAR) Cardiac: Yes (CARDIAC ABLATION) Atrial Fibrillation (Paroxysmal), Hypertension Neurological: No Reproductive Disorders: No Sexually Transmitted Disease: No HIV/AIDS: No Genitourinary: No Gastrointestinal: No Musculoskeletal: Yes (ROTATOR CUFF SURGERY LAST YEAR) Gout Endocrine: No HEENT: No Loss of Vision: Denies Cancer: No Psychosocial: No Integumentary: No Blood Disorders: No Adverse Reaction/Blood Tranf: No Family Medical History Cardiovascular disease G8 BROTHER Hypertension G8 BROTHER Heart Disease, Diabetes, Hypertension Physical Exam-Suspected Sepsis Physical Exam Vital Signs Vital Signs - First Documented 05/03/23 20:23 FiO2 32 Capillary Refill : Less Than 3 Seconds Blood Pressure Mean: 90 Height, Weight, BMI Height: 5'10.00" Weight: 211lbs. 3.0oz. [id number]; 28.00 BMI Method:Stated General Appearance: WD/WN, Moderate Distress, Other (Diaphoretic and dyspneic) HEENT: PERRL/EOMI, Normal ENT Inspection Neck: Normal Inspection; No JVD Respiratory: Normal Breath Sounds, Crackles (Left base), Other (Pursing lips with prolonged expiratory phase) Cardiovascular: No Murmur, Tachycardia (Regular), Other (Mild soft lower extremity edema equal bilaterally) Gastrointestinal: Non Tender, Soft; No Distended Extremity: Non Tender, Swelling Neurologic/Psychiatric: Alert, Oriented x3, No Motor/Sensory Deficits, Normal Mood/Affect Skin: normal color, diaphoresis Focused Exam Lactate Level 05/03/23 16:14: Lactic Acid Level 1.70 Lactic Acid Level Procedures/Interventions Date of ETT Placement: Nov 06, 2022 CPR: PEA arrest Progress/Results/Core Measures Suspected Sepsis SIRS Temperature: Pulse: 84 Respiratory Rate: 30 Laboratory Tests 05/03/23 16:14: White Blood Count 32.1*H Blood Pressure 140 /65 Mean: 90 05/03/23 16:14: Lactic Acid Level 1.70 Laboratory Tests 05/03/23 16:14: Creatinine 1.32H, INR Comment 1.2, Platelet Count 203, Total Bilirubin 2.8H Results/Orders Lab Results Laboratory Tests Test 05/03/23 16:14 Range/Units White Blood Count 32.1 *H 4.3-11.0 10^3/uL Red Blood Count 4.43 4.30-5.52 10^6/uL Hemoglobin 14.1 13.3-17.7 g/dL Hematocrit 43 40-54 % Mean Corpuscular Volume 96 80-99 fL Mean Corpuscular Hemoglobin 32 25-34 pg Mean Corpuscular Hemoglobin Concent 33 32-36 g/dL Red Cell Distribution Width 15.9 H 10.0-14.5 % Platelet Count 203 130-400 10^3/uL Mean Platelet Volume 10.0 9.0-12.2 fL Immature Granulocyte % (Auto) 1 % Neutrophils (%) (Auto) 91 H 42-75 % Lymphocytes (%) (Auto) 2 L 12-44 % Monocytes (%) (Auto) 7 0-12 % Eosinophils (%) (Auto) 0 0-10 % Basophils (%) (Auto) 0 0-10 % Neutrophils # (Auto) 29.2 H 1.8-7.8 X 10^3 Lymphocytes # (Auto) 0.6 L 1.0-4.0 X 10^3 Monocytes # (Auto) 2.1 H 0.0-1.0 X 10^3 Eosinophils # (Auto) 0.0 0.0-0.3 10^3/uL Basophils # (Auto) 0.1 0.0-0.1 10^3/uL Immature Granulocyte # (Auto) 0.2 H 0.0-0.1 10^3/uL Neutrophils % (Manual) 74 % Lymphocytes % (Manual) 5 % Monocytes % (Manual) 6 % Eosinophils % (Manual) 0 % Basophils % (Manual) 0 % Band Neutrophils 15 % Anisocytosis SLIGHT Stomatocytes SLIGHT Prothrombin Time 15.6 H 12.2-14.7 SEC INR Comment 1.2 0.8-1.4 Activated Partial Thromboplast Time 36 H 24-35 SEC Sodium Level 138 135-145 MMOL/L Potassium Level 4.1 3.6-5.0 MMOL/L Chloride Level 96 L 98-107 MMOL/L Carbon Dioxide Level 28 21-32 MMOL/L Anion Gap 14 5-14 MMOL/L Blood Urea Nitrogen 17 7-18 MG/DL Creatinine 1.32 H 0.60-1.30 MG/DL Estimat Glomerular Filtration Rate 59 BUN/Creatinine Ratio 13 Glucose Level 107 H 70-105 MG/DL Lactic Acid Level 1.70 0.50-2.00 MMOL/L Calcium Level 9.2 8.5-10.1 MG/DL Corrected Calcium 8.9 8.5-10.1 MG/DL Total Bilirubin 2.8 H 0.1-1.0 MG/DL Aspartate Amino Transf (AST/SGOT) 42 H 5-34 U/L Alanine Aminotransferase (ALT/SGPT) 45 0-55 U/L Alkaline Phosphatase 68 40-136 U/L C-Reactive Protein High Sensitivity 4.80 H 0.00-0.50 MG/DL B-Type Natriuretic Peptide 68.2 <100.0 PG/ML Total Protein 7.1 6.4-8.2 GM/DL Albumin 4.4 3.2-4.5 GM/DL Influenza Type A (RT-PCR) Not Detected Not Detecte Influenza Type B (RT-PCR) Not Detected Not Detecte SARS-CoV-2 RNA (RT-PCR) Not Detected Not Detecte My Orders Orders - JIAN DASILVA MD Covid 19 Inhouse Test (05/03/23 16:08) Influenza A And B By Pcr (05/03/23 16:08) Cbc And Automated Diff (05/03/23 16:08) Comprehensive Metabolic Panel (05/03/23 16:08) Blood Culture (05/03/23 16:08) Sputum Culture (05/03/23 16:08) Urinalysis (05/03/23 16:08) Urine Culture (05/03/23 16:08) Protime With Inr (10/1/23 16:08) Partial Thromboplastin Time (05/03/23 16:08) Chest 1 View, Ap/Pa Only (05/03/23 16:08) Ed Iv/Invasive Line Start (05/03/23 16:08) Ed Iv/Invasive Line Start (05/03/23 16:08) Vital Signs Adult Sepsis Patie Q15M (05/03/23 16:08) O2 (05/03/23 16:08) Remove Rings In Anticipation O (05/03/23 16:08) Lactic Acid Analyzer (05/03/23 16:08) Ekg Tracing (05/03/23 16:16) Acetaminophen Tablet (Acetaminophen Ta (05/03/23 16:30) Manual Differential (05/03/23 16:14) Bnp Misael (05/03/23 16:31) Hs C Reactive Protein (05/03/23 16:31) Meropenem Injection (Meropenem Injection (05/03/23 17:30) Ns Iv 1000 Ml (Ns Iv 1000 Ml) (05/03/23 18:15) Ed Admission (Communication) (05/03/23 20:01) Medications Given in ED Current Medications Medications Dose Ordered Sig/Sourav Route Start Time Stop Time Status Last Admin Dose Admin Acetaminophen 1,000 mg ONCE ONCE PO 05/03/23 16:30 05/03/23 16:31 DC 05/03/23 16:44 1,000 MG Meropenem 1000 mg/ Sodium Chloride 100 ml @ 200 mls/hr ONCE ONCE IV 05/03/23 17:30 05/03/23 17:59 DC 05/03/23 18:12 200 MLS/HR Vital Signs/I&O 05/03/23 05/03/23 05/03/23 05/03/23 16:05 16:05 16:05 19:20 Temp 40.0 Pulse 84 70 Resp 30 20 B/P (MAP) 140/65 (90) 104/50 Pulse Ox 93 96 O2 Delivery Nasal Cannula Nasal Cannula Nasal Cannula Nasal Cannula O2 Flow Rate 3.00 3.00 3.00 3.00 05/03/23 05/03/23 20:23 20:30 Pulse 70 Pulse Ox 96 O2 Delivery Nasal Cannula O2 Flow Rate 3.00 FiO2 32 Capillary Refill : Less Than 3 Seconds Blood Pressure Mean: 90 Progress Note : Progress Note Septic work-up was pursued. Labs were obtained, reviewed, and interpreted by me. He had marked leukocytosis with a WBC of 32 with a left shift. CMP was notable for mildly bumped creatinine of 1.32. Bilirubin was 2.8 which does not appear to have a clinical correlation. CMP was otherwise unremarkable. BNP and lactic acid were normal. CRP was modestly elevated at 4.8. Coag panel was unremarkable. Swabs for influenza and COVID-19 were negative. Patient was treated with meropenem. He has had a prior anaphylactic reaction to Rocephin. Penicillins and cephalosporins were therefore avoided. He was hydrated with a liter of normal saline. Tylenol was given for fever. Chest x-ray was viewed by me and report reviewed. He appears to have some infiltrate in the left midlung suspicious for pneumonia. I discussed CODE STATUS with the patient. He elects full CODE STATUS. ECG Initial ECG Impression Date: May 03, 2023 Initial ECG Impression Time: 16:15 Initial ECG Rate: 77 Initial ECG Rhythm: Normal Sinus Comment Sinus rhythm with no ST elevation or depression. Left axis deviation by automated read. QRS slightly prolonged at 114 ms. Diagnostic Imaging Diagonstic Imaging: Xray Plain Films/CT/US/NM/MRI: chest Comments NAME: JUSTUS NORIEGA [facility] REC#: [id number] PT STATUS: REG ER : 1955 PHYSICIAN: JIAN DASILVA MD ADMIT DATE: 05/03/23/ER Signed Date of Exam:05/03/23 CHEST 1 VIEW, AP/PA ONLY EXAMINATION: Chest radiograph, portable AP view. DATE: 05/03/2023 4:37 PM INDICATION: 67-year-old male, cough and shortness of breath. COMPARISON: November 06, 2022 FINDINGS: Heart size and mediastinal contours are unchanged. There is no identified pneumothorax. There is no large pleural effusion. There are chronic appearing right rib deformities. There are streaky opacities in left midlung. IMPRESSION: 1. Streaky opacities in the left midlung which may relate to atelectasis and/or infiltrate. Dictated by: Dictated on workstation # [id number] Dict: 05/03/23 1638 Trans: 05/03/23 1640 CVB [id number] Interpreted by: LESTER RAINES MD Electronically signed by: LESTER RAINES MD 05/03/23 1640 Departure Communication (Admissions) Time/Spoke to Admitting Phy: 18:15 Dr. Johnson Impression Primary Impression: Sepsis Qualified Codes: A41.9 - Sepsis, unspecified organism Additional Impressions: Pneumonia Qualified Codes: J18.9 - Pneumonia, unspecified organism Hypoxia Disposition: ADMITTED INPATIENT Condition: Stable Admissions Decision to Admit Reason: Admit from ER (General) Decision to Admit/Date: May 03, 2023 Time/Decision to Admit Time: 18:15 Departure-Patient Inst. Referrals: KEHINDE NICOLAS MD (PCP/Family) Primary Care Physician Copy Copies To 1: KEHINDE NICOLAS MD, JOSHUA T MD May 03, 2023 18:19
[2023-05-03] MEDS ORDERED: ACETAMINOPHEN 325 MG TABLET PO PRN (20:15)
[2023-05-03] MEDS ORDERED: NS IV 500 ML 500 ML IV PRN (20:15)
[2023-05-03] MEDS ORDERED: ANTACID SUSPENSION 30 ML UDC PO PRN (20:15)
[2023-05-03] MEDS ORDERED: diphenhydrAMINE 25 MG TABLET PO PRN (20:15)
[2023-05-03] MEDS ORDERED: HYDROmorphone INJECTION 2 MG/ML VIAL IV PRN (20:15)
[2023-05-03] MEDS ORDERED: CALCIUM CARBONATE 500 MG CHEW TABLET PO PRN (20:15)
[2023-05-03] MEDS ORDERED: BENZONATATE 100 MG CAPSULE PO PRN (20:15)
[2023-05-03] MEDS ORDERED: MELATONIN 3 MG TABLET PO PRN (20:15)
[2023-05-03] MEDS ORDERED: MILK OF MAGNESIA 400 MG/5 ML 30 ML UDC PO PRN (20:15)
[2023-05-03] MEDS ORDERED: LACTULOSE SYRUP 10GM/15ML 30ML UDC PO PRN (20:15)
[2023-05-03] MEDS ORDERED: diphenhydrAMINE INJ 50 MG/ML VIAL IVP PRN (20:15)
[2023-05-03] MEDS ORDERED: BISACODYL 10 MG SUPPOSITORY PR PRN (20:15)
[2023-05-03] MEDS ORDERED: ONDANSETRON INJECTION 4 MG/2 ML (SDV) IV PRN (20:15)
[2023-05-03] MEDS ORDERED: oxyCODONE IMMEDIATE RELEASE 5 MG TABLET PO PRN (20:15)
[2023-05-03] MEDS ORDERED: ONDANSETRON 4 MG ORAL DISSOLVE TABLET PO PRN (20:15)
[2023-05-03] MEDS ORDERED: RT-Ipratropium/Albuterol NEB 3 ML VIAL ONE (21:31)
[2023-05-03] MEDS: RT-Ipratropium/Albuterol NEB 3 ML VIAL INH SCH (21:48)
[2023-05-03] MEDS: MONTELUKAST 10 MG TABLET PO SCH (22:07)
[2023-05-03] MEDS: APIXABAN 5 MG TABLET PO SCH (22:07)
[2023-05-03] MEDS: DOCUSATE SODIUM 100 MG CAPSULE PO SCH (22:08)
[2023-05-03] MEDS: SENNOSIDES 8.6 MG TABLET PO SCH (22:08)
[2023-05-03] MEDS ORDERED: ALLO100T PO (23:19)
[2023-05-03] MEDS ORDERED: MONT-47 PO (23:19)
[2023-05-04 00:12] LABS: CLARITY,URINE CLEAR; COLOR,URINE YELLOW
[2023-05-04 00:13] LABS: BACTERIA,URINE NEGATIVE /HPF; BILIRUBIN,URINE NEGATIVE (NEGATIVE); GLUCOSE, URINE (UA) NEGATIVE (NEGATIVE); KETONES,URINE TRACE (NEGATIVE); LEUKOCYTE ESTERASE ,URINE TRACE (NEGATIVE); NITRITE,URINE NEGATIVE (NEGATIVE); PROTEIN,URINE 1+ (NEGATIVE); RBC,URINE RARE /HPF; WBC,URINE 0-2 /HPF
[2023-05-04 00:14] LABS: URINE OTHER FEW SPERM /HPF
[2023-05-04] MEDS: MEROPENEM INJECTION 500 MG in NS (IVPB) 100 ML 100 ML IV SCH ×4 (00:19→21:30)
[2023-05-04] MEDS: RT-Ipratropium/Albuterol NEB 3 ML VIAL INH SCH ×6 (01:58→23:22)
[2023-05-04 04:30] LABS: BASOPHILS # (AUTO) 0.1 10^3/uL (0.0-0.1); BASOPHILS % (AUTO) 0 % (0-10); EOSINOPHILS % (AUTO) 0 % (0-10); HEMATOCRIT 36 % (40-54); HEMOGLOBIN 12.3 g/dL (13.3-17.7); LYMPHOCYTES % (AUTO) 3 % (12-44); MEAN CORPUSCULAR HEMOGLOBIN 32 pg (25-34); MEAN CORPUSCULAR HGB CONC 34 g/dL (32-36); MEAN CORPUSCULAR VOLUME 95 fL (80-99); MEAN PLATELET VOLUME 10.6 fL (9.0-12.2); MONOCYTES # (AUTO) 2.2 10^3/uL (0.0-1.0); MONOCYTES % (AUTO) 7 % (0-12); NEUTROPHILS # (AUTO) 29.7 10^3/uL (1.8-7.8); NEUTROPHILS % (AUTO) 87 % (42-75); PLATELET COUNT 148 10^3/uL (130-400)
[2023-05-04 04:38] LABS: WHITE BLOOD COUNT 34.3 10^3/uL (4.3-11.0)
[2023-05-04 05:06] LABS: ALBUMIN 3.7 GM/DL (3.2-4.5); CALCIUM 8.1 MG/DL (8.5-10.1); CREATININE SERUM 1.13 MG/DL (0.60-1.30); MAGNESIUM 1.8 MG/DL (1.6-2.4); PHOSPHORUS 3.1 MG/DL (2.3-4.7); POTASSIUM 3.7 MMOL/L (3.6-5.0); TOTAL PROTEIN 6.4 GM/DL (6.4-8.2)
[2023-05-04] MEDS: POTASSIUM CL 10MEQ/50ML IVPB 50 ML IV SCH (05:22)
[2023-05-04] MEDS: POTASSIUM CHLORIDE 20 MEQ TABLET PO SCH (05:22)
[2023-05-04] MEDS: MAGNESIUM 1 GM/100 ML IVPB 100 ML IV SCH ×3 (05:22→08:24)
[2023-05-04] MEDS ORDERED: POTASSIUM CHLORIDE 20 MEQ TABLET PO ONE (06:00)
--- NOTE | 2023-05-04 08:24 | Physical Therapy Evaluation ---
PT Evaluation-General Medical Diagnosis Admission Date May 03, 2023 at 20:03 Medical Diagnosis: pneumonia/sepsis Onset Date: May 03, 2023 Therapy Diagnosis Therapy Diagnosis: debility Height/Weight Height (Feet): 5 Height (Inches): 10.00 Weight (Pounds): 211 Weight (Ounces): 3.0 Precautions Precautions/Isolations: Fall Prevention, Standard Precautions Referral Physician: Franci Reason for Referral: Evaluation/Treatment Medical History Pertinent Medical History: Atrial Fib, COPD (O2 at night), HTN, Smoking Current History ambulated to ER room secondary to SOA and congestion Reviewed History: Yes Social History Home: Single Level Current Living Status: Spouse Prior Prior Level of Function SCALE: Activities may be completed with or without assistive devices. 5-Jenbfnjuti-ruokmbb completes the activity by him/herself with no assistance from a helper. 5-Set-up or Clean-up Assistance-helper sets up or cleans up; patient completes activity. Austin assists only prior to or following the activity. 4-Supervision or Touching Assistance-helper provides verbal cues and/or touching/steadying and/or contact guard assistance as patient completes activity. Assistance may be provided throughout the activity or intermittently. 3-Partial/Moderate Assistance-helper does LESS THAN HALF the effort. Austin lifts, holds or supports trunk or limbs, but provides less than half the effort. 2-Substantial/Maximal Assistance-helper does MORE THAN HALF the effort. Austin lifts or holds trunk or limbs and provides more than half the effort. 3-Fseprnkfk-ywmhhd does ALL the effort. Patient does none of the effort to complete the activity. Or, the assistance of 2 or more helpers is required for the patient to complete the activity. If activity was not attempted, code reason: 7-Patient Refused. 9-Not Applicable-not attempted and the patient did not perform the activity before the current illness, exacerbation or injury. 10-Not Attempted due to Environmental Limitations-(lack of equipment, weather restraints, etc.). 88-Not Attempted due to Medical Conditions or Safety Concerns. Bed Mobility: 6 Transfers (B,C,W/C): 6 Gait: 6 Stairs: 6 Indoor Mobility (Ambulation): Independent Stairs: Independent Prior Devices Use: None PT Evaluation-Current Subjective Patient agrees to PT. Objective Patient Orientation: Normal For Age Attachments: Oxygen, IV ROM/Strength ROM Lower Extremities bilateral LE WFL Strength Lower Extremities 5/5 grossly bilateral LE all planes Integumentary/Posture Bowel Incontinence: No Bladder Incontinence: No Posture WFL Neuromuscular (Tone, Coordination, Reflexes) grossly intact Sensory Vision: Wears Glasses Hearing: Functional Transfers Lying to Sitting/Side of Bed(Q: 6 Sit to Stand (QC): 6 Chair/Cdg-je-Prhqd Xfer(QC): 6 Gait Mode of Locomotion: Walk Anticipated Mode of Locomotion: Walk Walk 10 feet (QC): 6 Walk 50 ft with 2 Turns(QC): 6 Gait Assistive Device: None Comments/Gait Description safe and functional with no deviation Balance Sitting Static: Normal Sitting Dynamic: Normal Standing Static: Normal Standing Dynamic: Normal Assessment/Needs Patient is currently at independent LOF with all gross motor skills safely and does not require skilled PT intervention at this time. Rehab Potential: Fair PT Plan Treatment/Plan Treatment Plan: Discontinue PT, goals met Treatment Duration: May 04, 2023 Frequency: 1 time per week Estimated Hrs Per Day: .25 hour per day Patient and/or Family Agrees t: Yes Time Time In: 740 Time Out: 750 DATE: May 04, 2023 Total Billed Treatment Time: 10 Total Billed Treatment 1 visit EVLow 10 min JENNYFER COSBY PT May 04, 2023 08:24
[2023-05-04] MEDS: APIXABAN 5 MG TABLET PO SCH ×2 (08:25→20:50)
--- NOTE | 2023-05-04 08:42 | Consultation-Cardiology ---
HPI-Cardiology Cardiology Consultation: Date of Consultation 05/04/23 Time Seen by a Provider: 08:15 Date of Admission 05-03-23 Attending Physician Tasha Nicolas MD Admitting Physician Admitting Physician: Madie Johnson DO Attending Physician: Madie Johnson DO Consulting Physician Dao Carty MD HPI: Chief Complaint: Pneumonia Provider requesting consult: Dr. Johnson Mr. Noriega is a 67 yr old male admitted to ICU 9 from the ED with pneumonia. He reports he has recently been visiting family in [place]. He reports he developed increasing SOB with frequent prod cough of thick phlegm. He reports fever, muscle aches. He denies any c/o CP, palpitations, syncope, near syncope or LE swelling. He reports his breathing is somewhat better this morning. Review of Systems-Cardiology Review of Systems Constitutional: chills, fever, malaise Eyes: No vision change Ears/Nose/Throat: No epistaxis Respiratory: As described under HPI Cardiovascular: As described under HPI Gastrointestinal: No constipation, No diarrhea, No nausea, No vomiting Genitourinary: No dysuria, No hematuria Musculoskeletal: As describe under HPI Skin: No rash on exposed areas, No ulcerations on exposed areas Psychiatric/Neurological: No anxiety, No depression, No seizure, No focal weakness, No syncope Hematologic: No bleeding abnormalities NOI-Pumsdu-Ayrocb Hx Patient Social History Smoking Status: Former Smoker 2nd Hand Smoke Exposure: No Alcohol Use?: No Pt feels they are or have been: No Immunizations Up To Date Tetanus Booster (TDap): Less than 5yrs Date of Pneumonia Vaccine: May 25, 2015 Date of Influenza Vaccine: May 25, 2015 Past Medical History PMH As described under Assessment. Family Medical History Family Medical History: He reports an older brother with CAD and HTN. Family History: Cardiovascular disease G8 BROTHER Hypertension G8 BROTHER Allergies and Home Medications Allergies Coded Allergies: ceftriaxone (Verified Allergy, Severe, Anaphylaxis, 05/03/23) NATALY Inhibitors (Verified Allergy, Unknown, 08/12/19) angioedema Patient Home Medication List Albuterol Sulfate (Ventolin Hfa) 90 Mcg Hfa.aer.ad, 2 PUFF INH Q6H PRN for SHORTNESS OF BREATH, (Reported) Entered as Reported by: YAMILE KRUSE on 12/02/22 7441 Last Action: Held Albuterol Sulfate (Albuterol Sulfate) 2.5 Mg/3 Ml (0.083 %) Vial.neb, 2.5 MG NEB Q8H PRN for SHORTNESS OF BREATH, (Reported) Entered as Reported by: YAMILE KRUSE on 05/04/231354 Last Action: Held Allopurinol (Allopurinol) 100 Mg Tablet, 100 MG PO 3X WEEKLY @HS, (Reported) Entered as Reported by: MARIA LOO on 05/03/232318 Last Action: Continued Amiodarone HCl (Amiodarone HCl) 200 Mg Tablet, 200 MG PO 1900, (Reported) Entered as Reported by: YAMILE KRUSE on 12/02/221612 Last Action: Held Apixaban (Eliquis) 5 Mg Tablet, 5 MG PO BID, (Reported) Entered as Reported by: YAMILE KRUSE on 12/02/221612 Last Action: Reviewed Budesonide/Glycopyr/Formoterol (Breztri Aerosphere Inhaler) 160 Mcg-9 Mcg-4.8 Mcg/Actuation Hfa.aer.ad, 2 PUFF INH BID, (Reported) Entered as Reported by: YAMILE KRUSE on 05/04/231354 Last Action: Converted Folic Acid (Folic Acid) 1 Mg Tablet, 1 MG PO DAILY, (Reported) Entered as Reported by: YAMILE KRUSE on 05/04/231354 Last Action: Continued Furosemide (Furosemide) 40 Mg Tablet, 40 MG PO DAILY, (Reported) Entered as Reported by: YAMILE KRUSE on 05/04/231354 Last Action: Held Magnesium Oxide (Magnesium) 400 Mg Magnesium Tablet, 400 MG PO BID, (Reported) Entered as Reported by: YAMILE KRUSE on 05/04/231354 Last Action: Converted Metoprolol Succinate (Metoprolol Succinate) 25 Mg Tab.er.24h, 25 MG PO DAILY, (Reported) Entered as Reported by: YAMILE KRUSE on 05/04/231354 Last Action: Continued Montelukast Sodium (Singulair) 10 Mg Tablet, 10 MG PO HS, (Reported) Entered as Reported by: MARIA LOO on 05/03/232318 Last Action: Continued Thiamine HCl (Vitamin B-1) 100 Mg Tablet, 100 MG PO DAILY, (Reported) Entered as Reported by: YAMILE KRUSE on 05/04/23 1355 Last Action: Continued Discontinued Medications Albuterol Sulfate (Ventolin Hfa) 90 Mcg Hfa.aer.ad, 2 PUFF INH Q4H PRN for SHORTNESS OF BREATH, (Reported) Discontinued Reason: Duplicate Order Entered as Reported by: CARLO CHOE on 07/16/17 0753 Last Action: Discontinued Albuterol Sulfate (Albuterol Sulfate) 2.5 Mg/0.5 Ml Vial.neb, 2.5 MG INH Q6H PRN for SHORTNESS OF BREATH, (Reported) Discontinued Reason: Duplicate Order Entered as Reported by: YAMILE KRUSE on 09/16/22 1136 Last Action: Discontinued Folic Acid (Folic Acid) 1 Mg Tablet, 1 MG PO DAILY Discontinued Reason: Duplicate Order Prescribed by: MADIE JOHNSON on 12/10/22517 Last Action: Discontinued Furosemide (Furosemide) 40 Mg Tablet, 40 MG PO DAILY Discontinued Reason: Duplicate Order Prescribed by: JOE BRAVO on 12/09/22 1019 Last Action: Discontinued Magnesium Oxide (Magnesium Oxide) 400 Mg (241.3 Mg Magnesium) Tablet, 400 MG PO BID Discontinued Reason: Duplicate Order Prescribed by: MADIE JOHNSON on 12/10/22517 Last Action: Discontinued Metoprolol Succinate (Metoprolol Succinate) 25 Mg Tab.er.24h, 25 MG PO DAILY Discontinued Reason: Duplicate Order Prescribed by: MADIE JOHNSON on 12/10/221045 Last Action: Discontinued Multivits W-Min/Ferrous Gluc ([facility]q) 9 Mg Iron/15 Ml Liquid, 5 ML PO DAILY Discontinued Reason: No Longer Taking Prescribed by: MADIE JOHNSON on 12/10/22517 Last Action: Discontinued Thiamine HCl (Vitamin B-1) 100 Mg Tablet, 100 MG PO DAILY Discontinued Reason: Duplicate Order Prescribed by: MADIE JOHNSON on 12/10/22517 Last Action: Discontinued Tiotropium Br/Olodaterol HCl (Stiolto Respimat Inhal [place]) 2.5 Mcg-2.5 Mcg/Actuation Mist.inhal, 2 PUFF IH DAILY Discontinued Reason: No Longer Taking Prescribed by: MADIE JOHNSON on 12/10/221047 Last Action: Discontinued Physical Exam-Cardiology Physical Exam Vital Signs/I&O 05/04/23 05/04/23 05/04/23 05/05/23 20:02 20:52 23:55 01:00 Temp 36.9 36.0 Pulse 70 68 72 Resp 22 20 B/P (MAP) 115/63 (80) 115/70 (85) Pulse Ox 93 95 94 O2 Delivery Nasal Cannula Nasal Cannula Nasal Cannula O2 Flow Rate 3.50 3.50 3.50 3.50 05/05/23 05/05/23 05/05/23 05/05/23 02:00 03:27 07:05 07:46 Temp 37.0 36.2 Pulse 73 63 69 Resp 20 20 B/P (MAP) 117/47 (70) 129/63 (85) Pulse Ox 94 96 O2 Delivery Nasal Cannula Nasal Cannula Nasal Cannula O2 Flow Rate 3.00 3.00 3.00 3.00 Capillary Refill : Less Than 3 Seconds Constitutional: AAO x 3, well-developed, well-nourished HEENT: PERRL, hearing is well preserved, oral hygience is good Neck: No carotid bruit; carotid pulses are 2 + bilaterally Respiratory: No accessory muscle use; respiratory distress, chest expansion is symmetric, chest is bilaterally symmetric, rhonchi (scattered), other (coarse breath sounds) Cardiovascular: regular rate-rhythm; No JVD; S1 and S2 Gastrointestinal: No tender; soft, round; No guarding; audible bowel sounds Extremities: no lower extremity edema bilateral Skin: normal color, diaphoresis; No rash on exposed areas, No ulcerations on exposed areas Data Review Labs Laboratory Tests 05/05/23 04:27: White Blood Count 18.7H, Red Blood Count 3.52L, Hemoglobin 11.3L, Hematocrit 34L , Mean Corpuscular Volume 96, Mean Corpuscular Hemoglobin 32, Mean Corpuscular Hemoglobin Concent 34, Red Cell Distribution Width 15.9H, Platelet Count 136, Mean Platelet Volume 10.5, Immature Granulocyte % (Auto) 1, Neutrophils (%) (Auto) 86H, Lymphocytes (%) (Auto) 5L, Monocytes (%) (Auto) 7, Eosinophils (%) (Auto) 1, Basophils (%) (Auto) 0, Neutrophils # (Auto) 16.1H, Lymphocytes # (Auto) 1.0, Monocytes # (Auto) 1.2H, Eosinophils # (Auto) 0.1, Basophils # (Auto) 0.1, Immature Granulocyte # (Auto) 0.1, Percent Immature Platelet Fraction 4.9, Sodium Level 141, Potassium Level 3.6, Chloride Level 105, Carbon Dioxide Level 27, Anion Gap 9, Blood Urea Nitrogen 12, Creatinine 0.84, Estimat Glomerular Filtration Rate 96, BUN/Creatinine Ratio 14, Glucose Level 113H, Calcium Level 8.3L, Corrected Calcium 8.8, Magnesium Level 2.2, Total Bilirubin 1.0, Aspartate Amino Transf (AST/SGOT) 32, Alanine Aminotransferase (ALT/SGPT) 32, Alkaline Phosphatase 79, Total Protein 6.1L, Albumin 3.4 Microbiology 05/03/23 MRSA Screen - Final, Complete MRSA not isolated 05/03/23 Blood Culture - Preliminary, Resulted Radiology NAME: JUSTUS NORIEGA [facility] REC#: [id number] PT STATUS: REG ER : 1955 PHYSICIAN: JIAN DASILVA MD ADMIT DATE: 05/03/23/ER Signed Date of Exam:05/03/23 CHEST 1 VIEW, AP/PA ONLY EXAMINATION: Chest radiograph, portable AP view. DATE: 05/03/2023 4:37 PM INDICATION: 67-year-old male, cough and shortness of breath. COMPARISON: November 06, 2022 FINDINGS: Heart size and mediastinal contours are unchanged. There is no identified pneumothorax. There is no large pleural effusion. There are chronic appearing right rib deformities. There are streaky opacities in left midlung. IMPRESSION: 1. Streaky opacities in the left midlung which may relate to atelectasis and/or infiltrate. Dictated by: Dictated on workstation # [id number] Dict: 05/03/23 1638 Trans: 05/03/23 1640 [id number] [id number] Interpreted by: LESTER RAINES MD Electronically signed by: LESTER RAINES MD 05/03/23 1640 ECG Impression ECG Initial ECG Rhythm: Normal Sinus A/P-Cardiology Assessment/Admission Diagnosis Pneumonia - management per medical services H/O ac resp failure (and transient PEA) due to spontaneous L pneumothorax due to ruptured bleb (treated at [facility] in ) in November 2022 Ch diastolic CHF - clinically compensated - Echo of 12-05-22: LVEF 55-60%, PASP 30-35 mmHg Ch COPD H/o NICM - but echo at [facility], , is reported to have shown normal LVEF (Dr Rizzo's note of 11/29/22) - No significant CAD on cath of 05/22/[address] Owens - LVEF 20% on DARSHANA of 05/23/15 - pt reports resolution of heart failure and cardiomyopathy after ablation of A Fl in May [address] Padilla at [facility] - DARSHANA prior to elec CV on 09/16/22: reduced systolic function, no thrombus, no shunt, mild MR, no veg H/o DELIA H/o Atrial flutter - treated with ablation by Dr Padilla in May 2015 - admitted on 09-15-22 to [facility] d/t a-fib with RVR - underwent cardioversion after DARSHANA was carried out, which was initially successful after 3 attempts - however, he converted back to a-fib with RVR and was then started on amiodarone by Dr. Paiz - CT chest 08/14/22 - Right lower lobe mass present for the past 5 years and showed minimal increased size from 2017, likely with a partial calcification consistent with benign behavior and requiring no further dedicated workup. COPD and coronary artery atherosclerotic calcification, chronic. No pneumonia, failure or acute abnormality. Chronic tobacco use, quit in Aug 2022 H/o heavy alcohol use, none since Aug 2022 per his report COPD - followed and treated by his product strategy director Dr Roque Discussion and Recomendations Pneumonia - management per medical/eICU services Continue home medications including rate controlling agents and OAC Monitor lab closely Further recs will be based on his hospital course We would like to thank medical services for this consult JOE BRAVO May 04, 2023 08:42
--- NOTE | 2023-05-04 08:56 | Diagnostic Imaging Report ---
INDICATION: Pneumonia. Frontal chest obtained at 0242 a.m. and is compared with yesterday. Left perihilar and right basilar infiltrates appear similar to the previous study. There is no pneumothorax or pleural fluid. IMPRESSION: Unchanged left perihilar and right basilar infiltrates with no pneumothorax or pleural fluid. Dictated by: Dictated on workstation # [id number]
[2023-05-04] MEDS ORDERED: AMIODARONE 200 MG TABLET PO SCH (09:00)
[2023-05-04] MEDS: DOCUSATE SODIUM 100 MG CAPSULE PO SCH ×2 (09:39→20:50)
[2023-05-04] MEDS: AMIODARONE 200 MG TABLET PO SCH (09:39)
[2023-05-04] MEDS: SENNOSIDES 8.6 MG TABLET PO SCH ×2 (09:40→20:50)
--- NOTE | 2023-05-04 11:03 | History & Physical ---
CARYN DIALLO 05/04/23 1103: History of Present Illness History of Present Illness Reason for visit/HPI 05/04/2023 CC: Pneumonia HPI: Edward is a 67 year old male that presented to the ED on 05/03 due to some flu-like symptoms and SOB. Edward has a history of respiratory concerns, with him having been intubated in 11/23. Since this event he uses 2L at night. Due to the SOB, he has been on 3L all day and night. He also notes that he has had issues with COPD. Edward notes that he is not at his baseline yet, but feels much improved. He says that when talking he gets SOB and has to stop talking. He also notes that he cannot sleep in the bed, only the chair. At home he said he was able to sleep in a bed, but now he gets SOB. He denies any pain and says that he couldn't sleep much. Edward notes that he recently travelled to [place], but denies any contact with sick individuals. No other concerns. Date of Admission May 03, 2023 at 20:03 I consulted on this patient on 05/04/23 10:53 Attending Physician Tasha Nicolas MD Admitting Physician Admitting Physician: Madie Johnson DO Attending Physician: Madie Johnson DO Consult Allergies and Home Medications Allergies Coded Allergies: ceftriaxone (Verified Allergy, Severe, Anaphylaxis, 05/03/23) NATALY Inhibitors (Verified Allergy, Unknown, 08/12/19) angioedema Patient Home Medication List Home Medication List Reviewed: Yes Albuterol Sulfate (Ventolin Hfa) 90 Mcg Hfa.aer.ad, 2 PUFF INH Q6H PRN for SHORTNESS OF BREATH, (Reported) Entered as Reported by: YAMILE KRUSE on 12/02/22 1613 Last Action: Held Albuterol Sulfate (Albuterol Sulfate) 2.5 Mg/3 Ml (0.083 %) Vial.neb, 2.5 MG NEB Q8H PRN for SHORTNESS OF BREATH, (Reported) Entered as Reported by: YAMILE KRUSE on 05/04/23 1355 Last Action: Held Allopurinol (Allopurinol) 100 Mg Tablet, 100 MG PO 3X WEEKLY @HS, (Reported) Entered as Reported by: MARIA LOO on 05/03/23 2319 Last Action: Continued Amiodarone HCl (Amiodarone HCl) 200 Mg Tablet, 200 MG PO 1900, (Reported) Entered as Reported by: YAMILE KRUSE on 12/02/221612 Last Action: Held Apixaban (Eliquis) 5 Mg Tablet, 5 MG PO BID, (Reported) Entered as Reported by: YAMILE KRUSE on 12/02/221612 Last Action: Reviewed Budesonide/Glycopyr/Formoterol (Breztri Aerosphere Inhaler) 160 Mcg-9 Mcg-4.8 Mcg/Actuation Hfa.aer.ad, 2 PUFF INH BID, (Reported) Entered as Reported by: YAMILE KRUSE on 05/04/231354 Last Action: Converted Folic Acid (Folic Acid) 1 Mg Tablet, 1 MG PO DAILY, (Reported) Entered as Reported by: YAMILE KRUSE on 05/04/231354 Last Action: Continued Furosemide (Furosemide) 40 Mg Tablet, 40 MG PO DAILY, (Reported) Entered as Reported by: YAMILE KRUSE on 05/04/231354 Last Action: Held Magnesium Oxide (Magnesium) 400 Mg Magnesium Tablet, 400 MG PO BID, (Reported) Entered as Reported by: YAMILE KRUSE on 05/04/231354 Last Action: Converted Metoprolol Succinate (Metoprolol Succinate) 25 Mg Tab.er.24h, 25 MG PO DAILY, (Reported) Entered as Reported by: YAMILE KRUSE on 05/04/231354 Last Action: Continued Montelukast Sodium (Singulair) 10 Mg Tablet, 10 MG PO HS, (Reported) Entered as Reported by: MARIA LOO on 05/03/23 9458 Last Action: Continued Thiamine HCl (Vitamin B-1) 100 Mg Tablet, 100 MG PO DAILY, (Reported) Entered as Reported by: YAMILE KRUSE on 05/04/231354 Last Action: Continued Discontinued Medications Albuterol Sulfate (Ventolin Hfa) 90 Mcg Hfa.aer.ad, 2 PUFF INH Q4H PRN for SHORTNESS OF BREATH, (Reported) Discontinued Reason: Duplicate Order Entered as Reported by: CARLO CHOE on 07/16/17 9845 Last Action: Discontinued Albuterol Sulfate (Albuterol Sulfate) 2.5 Mg/0.5 Ml Vial.neb, 2.5 MG INH Q6H PRN for SHORTNESS OF BREATH, (Reported) Discontinued Reason: Duplicate Order Entered as Reported by: YAMILE KRUSE on 09/16/22 1136 Last Action: Discontinued Folic Acid (Folic Acid) 1 Mg Tablet, 1 MG PO DAILY Discontinued Reason: Duplicate Order Prescribed by: MADIE JOHNSON on 12/10/22517 Last Action: Discontinued Furosemide (Furosemide) 40 Mg Tablet, 40 MG PO DAILY Discontinued Reason: Duplicate Order Prescribed by: JOE BRAVO on 12/09/22 1019 Last Action: Discontinued Magnesium Oxide (Magnesium Oxide) 400 Mg (241.3 Mg Magnesium) Tablet, 400 MG PO BID Discontinued Reason: Duplicate Order Prescribed by: MADIE JOHNSON on 12/10/22517 Last Action: Discontinued Metoprolol Succinate (Metoprolol Succinate) 25 Mg Tab.er.24h, 25 MG PO DAILY Discontinued Reason: Duplicate Order Prescribed by: MADIE JOHNSON on 12/10/22 104 Last Action: Discontinued Multivits W-Min/Ferrous Gluc ([facility] Multivit-Min Liq) 9 Mg Iron/15 Ml Liquid, 5 ML PO DAILY Discontinued Reason: No Longer Taking Prescribed by: MADIE JOHNSON on 12/10/22517 Last Action: Discontinued Thiamine HCl (Vitamin B-1) 100 Mg Tablet, 100 MG PO DAILY Discontinued Reason: Duplicate Order Prescribed by: MADIE JOHNSON on 12/10/22517 Last Action: Discontinued Tiotropium Br/Olodaterol HCl (Stiolto Respimat Inhal [place]) 2.5 Mcg-2.5 Mcg/Actuation Mist.inhal, 2 PUFF IH DAILY Discontinued Reason: No Longer Taking Prescribed by: MADIE JOHNSON on 12/10/221047 Last Action: Discontinued Past Djpkpie-Jtlbsc-Xunzda Hx Patient Social History Marrital Status: Tobacco Use?: No Smoking Status: Former Smoker Use of E-Cig and/or Vaping dev: No Substance use?: No Alcohol Use?: No Pt feels they are or have been: No Immunizations Up To Date Date of Influenza Vaccine: May 25, 2015 First/Initial COVID19 Vaccinat: PHIZER Second COVID19 Vaccination Viktor: PHIZER Hepatitis A: No Hepatitis B: No Date of Pneumonia Vaccine: May 25, 2015 Seasonal Allergies Seasonal Allergies: No Current Status Advance Directives: Unable to obtain Communicates: Verbally Primary Language: Welsh Preferred Spoken Language: Welsh Is interpretation needed?: No Sensory deficits: Vision impairment Implanted or Applied Medical D: CPAP Past Medical History Surgeries: Cardiac (Cardiac ablation for atrial fibrillation), Orthopedic Pneumonia, Sleep Apnea (Uses supplemental oxygen by nasal cannula at night), COPD Currently Using CPAP: No (DOESN'T WEAR) Atrial Fibrillation (Paroxysmal), Hypertension Sexually Transmitted Disease: No HIV/AIDS: No Gout Loss of Vision: Denies Blood Disorders: No Adverse Reaction/Blood Tranf: No Family Medical History Cardiovascular disease G8 BROTHER Hypertension G8 BROTHER Heart Disease, Diabetes, Hypertension Review of Systems Constitutional: no symptoms reported EENTM: no symptoms reported Respiratory: see HPI, cough, dyspnea on exertion, phlegm, short of breath, wheezing Cardiovascular: no symptoms reported Gastrointestinal: no symptoms reported Genitourinary: no symptoms reported Musculoskeletal: no symptoms reported Skin: no symptoms reported Psychiatric/Neurological: No Symptoms Reported Physical Exam Vital Signs Vital Signs - First Documented 05/03/23 20:23 FiO2 32 Capillary Refill : Less Than 3 Seconds Height, Weight, BMI Height: 5'10.00" Weight: 211lbs. 3.0oz. [id number]; 28.69 BMI Method:Stated General Appearance: No Apparent Distress, WD/WN Eyes: Bilateral Eye Normal Inspection, Bilateral Eye EOMI HEENT: PERRL/EOMI, Normal ENT Inspection; No Pale Conjunctivae (L), No Pale Conjunctivae (R), No Scleral Icterus (L), No Scleral Icterus (R) Neck: Full Range of Motion, Normal Inspection, Supple; No JVD Respiratory: No Accessory Muscle Use, No Respiratory Distress, Crackles, Expiration, Inspiration, Wheezing Cardiovascular: Regular Rate, Rhythm, No Edema, No Gallop, No JVD, No Murmur, Normal Peripheral Pulses Gastrointestinal: Normal Bowel Sounds, Non Tender; No Distended Rectal: Deferred Back: Normal Inspection Extremity: Normal Capillary Refill, Normal Inspection, Normal Range of Motion, Non Tender, No Calf Tenderness, No Pedal Edema Neurologic/Psychiatric: Alert, Oriented x3, No Motor/Sensory Deficits, Normal Mood/Affect, booking 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 II-XII Norm as Tested Skin: Normal Color, Cool Lymphatic: No Adenopathy Comments Labs: WBC: 34.3H BUN: 21H, AST: 36H Bili: 3.0H Serology negative for Flu A/B and COVID Assessment/Plan Assessment and Plan 05/04/2023: Assessment: * Acute on Chronic Hypoxic Respiratory Failure * PNA * Sepsis * Organ Dysfunction- NANCY, Liver Damage * Hx of A.Fib with Ablation Plan: * O2, Meropenem, CXR * Fluids * Step-Down Unit * CBC/CMP * Home Medication Review * Cardio Consult Problems: (1) Acute on chronic hypoxic respiratory failure Status: Acute (2) COPD (chronic obstructive pulmonary disease) Status: Chronic Qualifiers: Qualified Codes: J44.1 - Chronic obstructive pulmonary disease with (acute) exacerbation (3) Pneumonia Status: Acute Qualifiers: Qualified Codes: J18.9 - Pneumonia, unspecified organism (4) COPD exacerbation Status: Acute (5) Sepsis Status: Acute Qualifiers: Qualified Codes: A41.9 - Sepsis, unspecified organism; R65.20 - Severe sepsis without septic shock; J96.01 - Acute respiratory failure with hypoxia (6) Elevated liver enzymes Status: Acute Admission Diagnosis Acute on Chronic Hypoxic Respiratory Failure Admission Status: Inpatient Order (span 2 midnights) Reason for Inpatient Admission: respiratory concerns MADIE JOHNSON 05/04/232048: History of Present Illness History of Present Illness Reason for visit/HPI Chief complaint: Acute hypoxic respiratory failure with fever HPI: This is a 67-year-old male known to me from inpatient rehab stay who has a past medical history of lung disease and atrial fibrillation who presented to the ER with fever of 104 and cough found to have a pneumonia. Due to the fact of such a high fever and atrial fibrillation history and history of intubation after Rocephin allergic reaction he was sent to the ICU and monitor closely. Currently he is doing much better and is at the bedside. Date Seen by a Provider: May 04, 2023 Time Seen by a Provider: 10:00 Allergies and Home Medications Allergies Coded Allergies: ceftriaxone (Verified Allergy, Severe, Anaphylaxis, 05/03/23) NATALY Inhibitors (Verified Allergy, Unknown, 08/12/19) angioedema Patient Home Medication List Albuterol Sulfate (Ventolin Hfa) 90 Mcg Hfa.aer.ad, 2 PUFF INH Q6H PRN for SHORTNESS OF BREATH, (Reported) Entered as Reported by: YAMILE KRUSE on 5/2/23 1613 Last Action: Held Albuterol Sulfate (Albuterol Sulfate) 2.5 Mg/3 Ml (0.083 %) Vial.neb, 2.5 MG NEB Q8H PRN for SHORTNESS OF BREATH, (Reported) Entered as Reported by: YAMILE KRUSE on 05/04/231354 Last Action: Held Allopurinol (Allopurinol) 100 Mg Tablet, 100 MG PO 3X WEEKLY @HS, (Reported) Entered as Reported by: MARIA LOO on 05/03/232318 Last Action: Continued Amiodarone HCl (Amiodarone HCl) 200 Mg Tablet, 200 MG PO 1900, (Reported) Entered as Reported by: YAMILE KRUSE on 12/02/221612 Last Action: Held Apixaban (Eliquis) 5 Mg Tablet, 5 MG PO BID, (Reported) Entered as Reported by: YAMILE KRUSE on 12/02/221612 Last Action: Reviewed Budesonide/Glycopyr/Formoterol (Breztri Aerosphere Inhaler) 160 Mcg-9 Mcg-4.8 Mcg/Actuation Hfa.aer.ad, 2 PUFF INH BID, (Reported) Entered as Reported by: YAMILE KRUSE on 05/04/231354 Last Action: Converted Folic Acid (Folic Acid) 1 Mg Tablet, 1 MG PO DAILY, (Reported) Entered as Reported by: YAMILE KRUSE on 05/04/231354 Last Action: Continued Furosemide (Furosemide) 40 Mg Tablet, 40 MG PO DAILY, (Reported) Entered as Reported by: YAMILE KRUSE on 05/04/231354 Last Action: Held Magnesium Oxide (Magnesium) 400 Mg Magnesium Tablet, 400 MG PO BID, (Reported) Entered as Reported by: YAMILE KRUSE on 05/04/231354 Last Action: Converted Metoprolol Succinate (Metoprolol Succinate) 25 Mg Tab.er.24h, 25 MG PO DAILY, (Reported) Entered as Reported by: YAMILE KRUSE on 05/04/231354 Last Action: Continued Montelukast Sodium (Singulair) 10 Mg Tablet, 10 MG PO HS, (Reported) Entered as Reported by: MARIA LOO on 05/03/232318 Last Action: Continued Thiamine HCl (Vitamin B-1) 100 Mg Tablet, 100 MG PO DAILY, (Reported) Entered as Reported by: YAMILE KRUSE on 05/04/23 1355 Last Action: Continued Discontinued Medications Albuterol Sulfate (Ventolin Hfa) 90 Mcg Hfa.aer.ad, 2 PUFF INH Q4H PRN for SHORTNESS OF BREATH, (Reported) Discontinued Reason: Duplicate Order Entered as Reported by: CARLO CHOE on 07/16/17 0753 Last Action: Discontinued Albuterol Sulfate (Albuterol Sulfate) 2.5 Mg/0.5 Ml Vial.neb, 2.5 MG INH Q6H PRN for SHORTNESS OF BREATH, (Reported) Discontinued Reason: Duplicate Order Entered as Reported by: YAMILE KRUSE on 09/16/22 1136 Last Action: Discontinued Folic Acid (Folic Acid) 1 Mg Tablet, 1 MG PO DAILY Discontinued Reason: Duplicate Order Prescribed by: MADIE JOHNSON on 12/10/22517 Last Action: Discontinued Furosemide (Furosemide) 40 Mg Tablet, 40 MG PO DAILY Discontinued Reason: Duplicate Order Prescribed by: JOE BRAVO on 12/09/22 1019 Last Action: Discontinued Magnesium Oxide (Magnesium Oxide) 400 Mg (241.3 Mg Magnesium) Tablet, 400 MG PO BID Discontinued Reason: Duplicate Order Prescribed by: MADIE JOHNSON on 12/10/22517 Last Action: Discontinued Metoprolol Succinate (Metoprolol Succinate) 25 Mg Tab.er.24h, 25 MG PO DAILY Discontinued Reason: Duplicate Order Prescribed by: MADIE JOHNSON on 12/10/22 104 Last Action: Discontinued Multivits W-Min/Ferrous Gluc ([facility] Multivit-Min Liq) 9 Mg Iron/15 Ml Liquid, 5 ML PO DAILY Discontinued Reason: No Longer Taking Prescribed by: MADIE JOHNSON on 12/10/22517 Last Action: Discontinued Thiamine HCl (Vitamin B-1) 100 Mg Tablet, 100 MG PO DAILY Discontinued Reason: Duplicate Order Prescribed by: MADIE JOHNSON on 12/10/22517 Last Action: Discontinued Tiotropium Br/Olodaterol HCl (Stiolto Respimat Inhal [place]) 2.5 Mcg-2.5 Mcg/Actu ation Mist.inhal, 2 PUFF IH DAILY Discontinued Reason: No Longer Taking Prescribed by: MADIE JOHNSON on 5/10/23 1048 Last Action: Discontinued Past Extojza-Lrrlyo-Oigtzm Hx Patient Social History Marrital Status: Employed/Student: employed Smoking Status: Former Smoker Past Medical History Pneumonia, COPD Atrial Fibrillation, High Cholesterol, Hypertension Family Medical History Cardiovascular disease G8 BROTHER Hypertension G8 BROTHER Review of Systems Constitutional: see HPI Respiratory: cough, dyspnea on exertion, short of breath Physical Exam General Appearance: No Apparent Distress, WD/WN, Chronically ill Respiratory: Decreased Breath Sounds, Expiration, Inspiration, Wheezing Neurologic/Psychiatric: Alert, Oriented x3, No Motor/Sensory Deficits, Normal Mood/Affect Assessment/Plan Assessment and Plan Assessment: Sepsis Acute on chronic hypoxic respiratory failure Pneumonia Acute kidney injury Atrial fibrillation Plan: Cardiology consult ICU IV antibiotics Hep-Lock IV fluid Home meds Supervisory-Addendum Brief Verification & Attestation Participated in pt care: history, MDM, physical Personally performed: exam, history, MDM, supervision of care Care discussed with: Medical Student Procedures: n/a Results interpretation: Verified all documentation Verification and Attestation of Medical Student E/M Service A medical student performed and documented this service in my presence. I reviewed and verified all information documented by the medical student and made modifications to such information, when appropriate. I personally performed the physical exam and medical decision making. Madie Johnson May 04, 2023,20:50 CARYN DIALLO May 04, 2023 11:03 MADIE JOHNSON DO May 04, 2023 20:49
[2023-05-04] MEDS ORDERED: MAGN400T39 PO (13:55)
[2023-05-04] MEDS ORDERED: THIA100T80 PO (13:55)
[2023-05-04] MEDS ORDERED: FOLI1TAB33 PO (13:55)
[2023-05-04] MEDS ORDERED: BUDE10.7 INH (13:55)
[2023-05-04] MEDS ORDERED: MTP25TSR PO (13:55)
[2023-05-04] MEDS ORDERED: FURO40TA4 PO (13:55)
[2023-05-04] MEDS ORDERED: ALBU2.5V4 NEB (13:55)
--- NOTE | 2023-05-04 14:17 | Consultation-Cardiology ---
HPI-Cardiology Cardiology Consultation: Date of Consultation 05/04/23 Time Seen by a Provider: 09:15 Date of Admission Attending Physician Tasha Nicolas MD Admitting Physician Admitting Physician: Madie Johnson DO Attending Physician: Madie Johnson DO Consulting Physician NADIR ORTEGA MD, MA, FACP, FACC, [facility], CCDS Physician requesting Card consult: Dr Johnson HPI: Chief Complaint: CC: Shortness of breath Mr. Garcia is a 67 yr old male admitted to ICU 9 from the ED with pneumonia. He reports he has recently been visiting family in [place]. He reports he developed increasing SOB with frequent prod cough of thick phlegm. He reports fever, muscle aches. He denies any c/o CP, palpitations, syncope, near syncope or LE swelling. He reports his breathing is somewhat better this morning. Review of Systems-Cardiology Review of Systems Constitutional: chills, fever, malaise Eyes: No vision change Ears/Nose/Throat: No epistaxis Respiratory: As described under HPI Cardiovascular: As described under HPI Gastrointestinal: No constipation, No diarrhea, No nausea, No vomiting Genitourinary: No dysuria, No hematuria Musculoskeletal: As describe under HPI Skin: No rash on exposed areas, No ulcerations on exposed areas Psychiatric/Neurological: No anxiety, No depression, No seizure, No focal weakness, No syncope Hematologic: No bleeding abnormalities [id number]-[id number] Hx Patient Social History Marrital Status: Smoking Status: Former Smoker 2nd Hand Smoke Exposure: No Alcohol Use?: No Pt feels they are or have been: No Immunizations Up To Date Tetanus Booster (TDap): Less than 5yrs Date of Pneumonia Vaccine: May 25, 2015 Date of Influenza Vaccine: May 25, 2015 Past Medical History PMH As described under Assessment. Family Medical History Family Medical History: He reports an older brother with CAD and HTN. Family History: Cardiovascular disease G8 BROTHER Hypertension G8 BROTHER Allergies and Home Medications Allergies Coded Allergies: ceftriaxone (Verified Allergy, Severe, Anaphylaxis, 05/03/23) NATALY Inhibitors (Verified Allergy, Unknown, 08/12/19) angioedema Patient Home Medication List Home Medication List Reviewed: Yes Albuterol Sulfate (Ventolin Hfa) 90 Mcg Hfa.aer.ad, 2 PUFF INH Q6H PRN for SHORTNESS OF BREATH, (Reported) Entered as Reported by: YAMILE KRUSE on 12/02/221612 Last Action: Reviewed Albuterol Sulfate (Albuterol Sulfate) 2.5 Mg/3 Ml (0.083 %) Vial.neb, 2.5 MG NEB Q8H PRN for SHORTNESS OF BREATH, (Reported) Entered as Reported by: YAMILE KRUSE on 05/04/231354 Last Action: Reviewed Allopurinol (Allopurinol) 100 Mg Tablet, 100 MG PO 3X WEEKLY @HS, (Reported) Entered as Reported by: MARIA LOO on 05/03/232318 Last Action: Reviewed Amiodarone HCl (Amiodarone HCl) 200 Mg Tablet, 200 MG PO 1900, (Reported) Entered as Reported by: YAMILE KRUSE on 12/02/221612 Last Action: Reviewed Apixaban (Eliquis) 5 Mg Tablet, 5 MG PO BID, (Reported) Entered as Reported by: YAMILE KRUSE on 12/02/221612 Last Action: Reviewed Budesonide/Glycopyr/Formoterol (Breztri Aerosphere Inhaler) 160 Mcg-9 Mcg-4.8 Mcg/Actuation Hfa.aer.ad, 2 PUFF INH BID, (Reported) Entered as Reported by: YAMILE KRUSE on 05/04/231354 Last Action: Reviewed Folic Acid (Folic Acid) 1 Mg Tablet, 1 MG PO DAILY, (Reported) Entered as Reported by: YAMILE KRUSE on 05/04/231354 Last Action: Reviewed Furosemide (Furosemide) 40 Mg Tablet, 40 MG PO DAILY, (Reported) Entered as Reported by: YAMILE KRUSE on 05/04/231354 Last Action: Reviewed Magnesium Oxide (Magnesium) 400 Mg Magnesium Tablet, 400 MG PO BID, (Reported) Entered as Reported by: YAMILE KRUSE on 05/04/231354 Last Action: Reviewed Metoprolol Succinate (Metoprolol Succinate) 25 Mg Tab.er.24h, 25 MG PO DAILY, (Reported) Entered as Reported by: YAMILE KRUSE on 05/04/231354 Last Action: Reviewed Montelukast Sodium (Singulair) 10 Mg Tablet, 10 MG PO HS, (Reported) Entered as Reported by: MARIA LOO on 10/1/23 2319 Last Action: Reviewed Thiamine HCl (Vitamin B-1) 100 Mg Tablet, 100 MG PO DAILY, (Reported) Entered as Reported by: YAMILE KRUSE on 05/04/23 1355 Last Action: Reviewed Discontinued Medications Albuterol Sulfate (Ventolin Hfa) 90 Mcg Hfa.aer.ad, 2 PUFF INH Q4H PRN for SHORTNESS OF BREATH, (Reported) Discontinued Reason: Duplicate Order Entered as Reported by: CARLO CHOE on 07/16/17 0753 Last Action: Discontinued Albuterol Sulfate (Albuterol Sulfate) 2.5 Mg/0.5 Ml Vial.neb, 2.5 MG INH Q6H PRN for SHORTNESS OF BREATH, (Reported) Discontinued Reason: Duplicate Order Entered as Reported by: YAMILE KRUSE on 09/16/22 1136 Last Action: Discontinued Folic Acid (Folic Acid) 1 Mg Tablet, 1 MG PO DAILY Discontinued Reason: Duplicate Order Prescribed by: MADIE JOHNSON on 12/10/22517 Last Action: Discontinued Furosemide (Furosemide) 40 Mg Tablet, 40 MG PO DAILY Discontinued Reason: Duplicate Order Prescribed by: JOE BRAVO on 12/09/22 1019 Last Action: Discontinued Magnesium Oxide (Magnesium Oxide) 400 Mg (241.3 Mg Magnesium) Tablet, 400 MG PO BID Discontinued Reason: Duplicate Order Prescribed by: MADIE JOHNSON on 12/10/22517 Last Action: Discontinued Metoprolol Succinate (Metoprolol Succinate) 25 Mg Tab.er.24h, 25 MG PO DAILY Discontinued Reason: Duplicate Order Prescribed by: MADIE JOHNSON on 12/10/22 1046 Last Action: Discontinued Multivits W-Min/Ferrous Gluc ([facility]q) 9 Mg Iron/15 Ml Liquid, 5 ML PO DAILY Discontinued Reason: No Longer Taking Prescribed by: MADIE JOHNSON on 12/10/22517 Last Action: Discontinued Thiamine HCl (Vitamin B-1) 100 Mg Tablet, 100 MG PO DAILY Discontinued Reason: Duplicate Order Prescribed by: MADIE JOHNSON on 12/10/22517 Last Action: Discontinued Tiotropium Br/Olodaterol HCl (Stiolto Respimat Inhal [place]) 2.5 Mcg-2.5 Mcg/Actuation Mist.inhal, 2 PUFF IH DAILY Discontinued Reason: No Longer Taking Prescribed by: MADIE JOHNSON on 12/10/22 1048 Last Action: Discontinued Physical Exam-Cardiology Physical Exam Vital Signs/I&O 05/04/23 05/04/23 05/04/23 05/04/23 03:00 04:00 04:20 04:27 Temp 36.7 Pulse 68 66 Resp 24 20 B/P (MAP) 115/48 (80) 108/63 (78) Pulse Ox 97 94 95 O2 Delivery Nasal Cannula Nasal Cannula Nasal Cannula O2 Flow Rate 3.00 3.00 3.00 05/04/23 05/04/23 05/04/23 05/04/23 05:00 06:49 07:00 07:27 Pulse 62 62 66 Resp 35 24 B/P (MAP) 106/59 (75) Pulse Ox 98 97 96 O2 Delivery Nasal Cannula Nasal Cannula Nasal Cannula O2 Flow Rate 3.00 3.00 3.00 05/04/23 05/04/23 05/04/23 05/04/23 08:00 08:00 08:00 09:00 Temp 36.5 Pulse 68 68 Resp 21 25 B/P (MAP) 109/59 (76) 112/56 (74) Pulse Ox 95 97 95 O2 Delivery Nasal Cannula Nasal Cannula Nasal Cannula O2 Flow Rate 3.00 3.00 3.00 05/04/23 05/04/23 05/04/23 05/04/23 10:00 10:46 10:55 11:00 Pulse 70 67 Resp 23 29 B/P (MAP) 112/59 (76) 115/61 (79) Pulse Ox 96 93 94 94 O2 Delivery Nasal Cannula Nasal Cannula Nasal Cannula Nasal Cannula O2 Flow Rate 3.00 3.00 2.00 3.00 05/04/23 05/04/23 05/04/23 05/04/23 11:27 11:36 12:27 13:00 Temp 36.4 Pulse 71 68 68 Resp 30 19 B/P (MAP) 113/67 (82) Pulse Ox 96 97 O2 Delivery Nasal Cannula Nasal Cannula O2 Flow Rate 3.00 3.00 05/04/23 00:00 Intake Total 1100 ml Balance 1100 ml Capillary Refill : Less Than 3 Seconds Constitutional: AAO x 3, well-developed, well-nourished HEENT: PERRL, hearing is well preserved, oral hygience is good Neck: No carotid bruit; carotid pulses are 2 + bilaterally Respiratory: No accessory muscle use; respiratory distress, chest expansion is symmetric, chest is bilaterally symmetric, rhonchi (scattered), other (coarse breath sounds) Cardiovascular: regular rate-rhythm; No JVD; S1 and S2 Gastrointestinal: No tender; soft, round; No guarding; audible bowel sounds Extremities: no lower extremity edema bilateral Skin: normal color, diaphoresis; No rash on exposed areas, No ulcerations on exposed areas Data Review Labs Laboratory Tests 05/03/23 16:14: White Blood Count 32.1*H, Red Blood Count 4.43, Hemoglobin 14.1, Hematocrit 43, Mean Corpuscular Volume 96, Mean Corpuscular Hemoglobin 32, Mean Corpuscular Hemoglobin Concent 33, Red Cell Distribution Width 15.9H, Platelet Count 203, Mean Platelet Volume 10.0, Immature Granulocyte % (Auto) 1, Neutrophils (%) (Auto) 91H, Lymphocytes (%) (Auto) 2L, Monocytes (%) (Auto) 7, Eosinophils (%) (Auto) 0, Basophils (%) (Auto) 0, Neutrophils # (Auto) 29.2H, Lymphocytes # (Auto) 0.6L, Monocytes # (Auto) 2.1H, Eosinophils # (Auto) 0.0, Basophils # (Auto) 0.1, Immature Granulocyte # (Auto) 0.2H, Neutrophils % (Manual) 74, Lymphocytes % (Manual) 5, Monocytes % (Manual) 6, Eosinophils % (Manual) 0, Basophils % (Manual) 0, Band Neutrophils 15, Anisocytosis SLIGHT, Stomatocytes SLIGHT, Prothrombin Time 15.6H, INR Comment 1.2, Activated Partial Thromboplast Time 36H, Sodium Level 138, Potassium Level 4.1, Chloride Level 96L, Carbon Dioxide Level 28, Anion Gap 14, Blood Urea Nitrogen 17, Creatinine 1.32H, E stimat Glomerular Filtration Rate 59, BUN/Creatinine Ratio 13, Glucose Level 107H, Lactic Acid Level 1.70, Calcium Level 9.2, Corrected Calcium 8.9, Total Bilirubin 2.8H, Aspartate Amino Transf (AST/SGOT) 42H, Alanine Aminotransferase (ALT/SGPT) 45, Alkaline Phosphatase 68, C-Reactive Protein High Sensitivity 4.80H, B-Type Natriuretic Peptide 68.2, Total Protein 7.1, Albumin 4.4, Influenza Type A (RT-PCR) Not Detected, Influenza Type B (RT-PCR) Not Detected, SARS-CoV-2 RNA (RT-PCR) Not Detected 05/03/23 23:25: Urine Color YELLOW, Urine Clarity CLEAR, Urine pH 7.0, Urine Specific [place] 1.015L, Urine Protein 1+H, Urine Glucose (UA) NEGATIVE, Urine Ketones TRACEH, Urine Nitrite NEGATIVE, Urine Bilirubin NEGATIVE, Urine Urobilinogen 1.0, Urine Leukocyte Esterase TRACEH, Urine RBC (Auto) NEGATIVE, Urine RBC RARE, Urine WBC 0-2, Urine Crystals NONE, Urine Bacteria NEGATIVE, Urine Casts NONE, Urine Mucus NEGATIVE, Urine Other FEW SPERMH, Urine Culture Indicated CULTURE PENDING 05/04/23 03:51: White Blood Count 34.3*H, Red Blood Count 3.81L, Hemoglobin 12.3L, Hematocrit 36L, Mean Corpuscular Volume 95, Mean Corpuscular Hemoglobin 32, Mean Corpuscular Hemoglobin Concent 34, Red Cell Distribution Width 16.2H, Platelet Count 148, Mean Platelet Volume 10.6, Immature Granulocyte % (Auto) 4, Neutrophils (%) (Auto) 87H, Lymphocytes (%) (Auto) 3L, Monocytes (%) (Auto) 7, Eosinophils (%) (Auto) 0, Basophils (%) (Auto) 0, Neutrophils # (Auto) 29.7H, Lymphocytes # (Auto) 1.0, Monocytes # (Auto) 2.2H, Eosinophils # (Auto) 0.0, Basophils # (Auto) 0.1, Immature Granulocyte # (Auto) 1.2H, Sodium Level 137, Potassium Level 3.7, Chloride Level 99, Carbon Dioxide Level 25, Anion Gap 13, Blood Urea Nitrogen 21H, Creatinine 1.13, Estimat Glomerular Filtration Rate 71, BUN/Creatinine Ratio 19, Glucose Level 127H, Calcium Level 8.1L, Corrected Calcium 8.3L, Total Bilirubin 3.0H, Aspartate Amino Transf (AST/SGOT) 36H, Alanine Aminotransferase (ALT/SGPT) 36, Alkaline Phosphatase 57, Total Protein 6.4, Albumin 3.7, Phosphorus Level 3.1, Magnesium Level 1.8 A/P-Cardiology Assessment/Admission Diagnosis Pneumonia - management per medical services H/O ac resp failure (and transient PEA) due to spontaneous L pneumothorax due to ruptured bleb (treated at [facility] in ) in November 2022 Ch diastolic CHF - clinically compensated - Echo of 12-05-22: LVEF 55-60%, PASP 30-35 mmHg Ch COPD H/o NICM - but echo at [facility], is reported to have shown normal LVEF (Dr Rizzo's note of 11/29/22) - No significant CAD on cath of 05/22/[address] Owens - LVEF 20% on DARSHANA of 05/23/15 - pt reports resolution of heart failure and cardiomyopathy after ablation of A Fl in May [address] Padilla at [facility] - DAR[facility]NA prior to elec CV on 09/16/22: reduced systolic function, no thrombus, no shunt, mild MR, no veg H/o DELIA H/o Atrial flutter - treated with ablation by Dr Padilla in May 2015 - admitted on 09-15-22 to [facility] d/t a-fib with RVR - underwent cardioversion after DARSHANA was carried out, which was initially successful after 3 attempts - however, he converted back to a-fib with RVR and was then started on amiodarone by Dr. Paiz - CT chest 08/14/22 - Right lower lobe mass present for the past 5 years and showed minimal increased size from 2017, likely with a partial calcification consistent with benign behavior and requiring no further dedicated workup. COPD and coronary artery atherosclerotic calcification, chronic. No pneumonia, failure or acute abnormality. Chronic tobacco use, quit in Aug 2022 H/o heavy alcohol use, none since Aug 2022 per his report COPD - followed and treated by his administration dean Dr Roque Discussion and Recomendations Pneumonia - management per medical/eICU services Continue home medications including rate controlling agents and OAC Monitor lab closely Further recs will be based on his hospital course We would like to thank medical services for this consult NADIR [facility]GA [facility] CCDS May 04, 2023 14:17
[2023-05-04 20:02] VITALS: BP 115/63
[2023-05-04] MEDS: MONTELUKAST 10 MG TABLET PO SCH (20:50)
[2023-05-04] MEDS ORDERED: MONTELUKAST 10 MG TABLET PO SCH (21:00)
[2023-05-04] MEDS ORDERED: ALLOPURINOL 100 MG TABLET PO SCH (21:00)
[2023-05-04 23:55] VITALS: BP 115/70
[2023-05-05] VITALS (7 sets, daily range): BP systolic 117–137; BP diastolic 47–75
[2023-05-05] MEDS: RT-Ipratropium/Albuterol NEB 3 ML VIAL INH SCH ×6 (02:00→22:35)
[2023-05-05] MEDS: MEROPENEM INJECTION 500 MG in NS (IVPB) 100 ML 100 ML IV SCH ×4 (03:43→22:04)
[2023-05-05 04:44] LABS: BASOPHILS # (AUTO) 0.1 10^3/uL (0.0-0.1); BASOPHILS % (AUTO) 0 % (0-10); EOSINOPHILS # (AUTO) 0.1 10^3/uL (0.0-0.3); EOSINOPHILS % (AUTO) 1 % (0-10); HEMOGLOBIN 11.3 g/dL (13.3-17.7); MEAN CORPUSCULAR VOLUME 96 fL (80-99)
[2023-05-05 04:46] LABS: HEMATOCRIT 34 % (40-54); LYMPHOCYTES % (AUTO) 5 % (12-44); MEAN CORPUSCULAR HEMOGLOBIN 32 pg (25-34); MEAN CORPUSCULAR HGB CONC 34 g/dL (32-36); MEAN PLATELET VOLUME 10.5 fL (9.0-12.2); MONOCYTES # (AUTO) 1.2 10^3/uL (0.0-1.0); MONOCYTES % (AUTO) 7 % (0-12); NEUTROPHILS # (AUTO) 16.1 10^3/uL (1.8-7.8); NEUTROPHILS % (AUTO) 86 % (42-75); PLATELET COUNT 136 10^3/uL (130-400); WHITE BLOOD COUNT 18.7 10^3/uL (4.3-11.0)
[2023-05-05 05:26] LABS: ALBUMIN 3.4 GM/DL (3.2-4.5); CALCIUM 8.3 MG/DL (8.5-10.1); CREATININE SERUM 0.84 MG/DL (0.60-1.30); MAGNESIUM 2.2 MG/DL (1.6-2.4); POTASSIUM 3.6 MMOL/L (3.6-5.0); TOTAL PROTEIN 6.1 GM/DL (6.4-8.2)
[2023-05-05] MEDS: POTASSIUM CL 10MEQ/50ML IVPB 50 ML IV SCH (05:32)
[2023-05-05] MEDS: MAGNESIUM 1 GM/100 ML IVPB 100 ML IV SCH (05:32)
[2023-05-05] MEDS: POTASSIUM CHLORIDE 20 MEQ TABLET PO SCH (05:41)
[2023-05-05] MEDS ORDERED: TIOTROPIUM INH 4 GM (SPIRIVA Respimat) IH SCH (08:00)
[2023-05-05] MEDS ORDERED: FLUTICASONE/VILANTEROL 200/25 MCG (7 DOSES) IH SCH (08:00)
--- NOTE | 2023-05-05 08:22 | Diagnostic Imaging Report ---
INDICATION: Pneumonia Frontal chest obtained at 4:07 a.m. and compared to 05/04/23. Heart is borderline in size. Mediastinal silhouette is unremarkable. There is unchanged left perihilar infiltrate with some right basilar infiltrate. There is no pneumothorax or pleural fluid. IMPRESSION: Unchanged bilateral infiltrates compared to yesterday with no new abnormality. Dictated by: Dictated on workstation # [id number]
--- NOTE | 2023-05-05 08:25 | Progress Note - Cardiology ---
Cardiology SOAP Progress Note Subjective: Sitting up in recliner at the bedside Feels breathing is better No c/o CP or palpitations No LE swelling Objective: I&O/Vital Signs 05/06/23 05/06/23 05/06/23 05/06/23 01:00 02:15 03:33 05:07 Temp 37.0 36.2 Pulse 71 74 82 Resp 18 B/P (MAP) 126/69 (88) Pulse Ox 95 94 95 O2 Delivery Nasal Cannula Nasal Cannula O2 Flow Rate 3.00 3.00 3.00 FiO2 32 05/06/23 05/06/23 05/06/23 05/06/23 07:00 07:26 08:00 11:10 Temp 36.6 36.6 Pulse 69 61 67 Resp 16 17 B/P (MAP) 115/67 (83) 132/67 (88) Pulse Ox 96 94 O2 Delivery Nasal Cannula Nasal Cannula Nasal Cannula O2 Flow Rate 3.00 3.00 3.00 05/06/23 00:00 Intake Total 1600 ml Balance 1600 ml Weight (Pounds): 211 Weight (Ounces): 3.0 Weight (Calculated Kilograms): 95.797841 Constitutional: AAO x 3, well-developed, well-nourished Respiratory: No accessory muscle use; respiratory distress, chest expansion is symmetric, chest is bilaterally symmetric, rhonchi (scattered), other (coarse breath sounds) Cardiovascular: regular rate-rhythm; No JVD; S1 and S2 Gastrointestional: No tender; soft, round; No guarding; audible bowel sounds Extremities: no lower extremity edema bilateral Neurologic/Psychiatric: oriented x 3, other (moves all extremities) Skin: normal color; No rash on exposed areas, No ulcerations on exposed areas Results/Procedures: Labs Laboratory Tests 05/06/23 05:15: White Blood Count 11.9H, Red Blood Count 3.56L, Hemoglobin 11.4L, Hematocrit 35L , Mean Corpuscular Volume 99, Mean Corpuscular Hemoglobin 32, Mean Corpuscular Hemoglobin Concent 32, Red Cell Distribution Width 15.9H, Platelet Count 146, Mean Platelet Volume 11.1, Immature Granulocyte % (Auto) 1, Neutrophils (%) (Auto) 80H, Lymphocytes (%) (Auto) 9L, Monocytes (%) (Auto) 8, Eosinophils (%) (Auto) 2, Basophils (%) (Auto) 0, Neutrophils # (Auto) 9.6H, Lymphocytes # (Auto) 1.1, Monocytes # (Auto) 1.0, Eosinophils # (Auto) 0.2, Basophils # (Auto) 0.1, Immature Granulocyte # (Auto) 0.1, Sodium Level 142, Potassium Level 3.9, Chloride Level 102, Carbon Dioxide Level 29, Anion Gap 11, Blood Urea Nitrogen 9, Creatinine 0.76, Estimat Glomerular Filtration Rate 99, BUN/Creatinine Ratio 12, Glucose Level 86, Calcium Level 8.6, Corrected Calcium 8.9, Magnesium Level 2.0, Total Bilirubin 1.2H, Aspartate Amino Transf (AST/SGOT) 19, Alanine Aminotransferase (ALT/SGPT) 28, Alkaline Phosphatase 66, Total Protein 6.4, Albumin 3.6 Microbiology 05/03/23 Urine Culture - Final, Complete NO GROWTH 05/03/23 MRSA Screen - Final, Complete MRSA not isolated 05/03/23 Blood Culture - Preliminary, Resulted Procedures NAME: JUSTUS NORIEGA [facility] REC#: [id number] PT STATUS: ADM IN : 1955 PHYSICIAN: TABATHA JOHNSON DO ADMIT DATE: 05/03/23/[facility] Draft Date of Exam:05/05/23 CHEST 1 VIEW, AP/PA ONLY INDICATION: Pneumonia Frontal chest obtained at 4:07 a.m. and compared to 05/04/23. Heart is borderline in size. Mediastinal silhouette is unremarkable. There is unchanged left perihilar infiltrate with some right basilar infiltrate. There is no pneumothorax or pleural fluid. IMPRESSION: Unchanged bilateral infiltrates compared to yesterday with no new abnormality. Dictated on workstation # [id number] Dict: 05/05/23 0757 Trans: 05/05/23 0821 [id number] Interpreted by: SAKINA HODGES MD Electronically signed by: A/P: Assessment: Pneumonia - management per medical services H/O ac resp failure (and transient PEA) due to spontaneous L pneumothorax due to ruptured bleb (treated at [facility] in ) in November 2022 Ch diastolic CHF - clinically compensated - Echo of 12-05-22: LVEF 55-60%, PASP 30-35 mmHg Ch COPD H/o NICM - but echo at [facility], , is reported to have shown normal LVEF (Dr Rizzo's note of 11/29/22) - No significant CAD on cath of 05/22/[address] Owens - LVEF 20% on DARSHANA of 05/23/15 - pt reports resolution of heart failure and cardiomyopathy after ablation of A Fl in [address] Padilla at [facility] - [facility] prior to elec CV on 09/16/22: reduced systolic function, no thrombus, no shunt, mild MR, no veg H/o DELIA - intolerant to CPAP tx per pt report H/o Atrial flutter - treated with ablation by Dr Padilla in May 2015 - admitted on 09-15-22 to [facility] d/t a-fib with RVR - underwent cardioversion after DARSHANA was carried out, which was initially successful after 3 attempts - however, he converted back to a-fib with RVR and was then started on amiodarone by Dr. Paiz - SR CT chest 08/14/22 - Right lower lobe mass present for the past 5 years and showed minimal increased size from 2017, likely with a partial calcification consistent with benign behavior and requiring no further dedicated workup. COPD and coronary artery atherosclerotic calcification, chronic. No pneumonia, failure or acute abnormality. Chronic tobacco use, quit in Aug 2022 H/o heavy alcohol use, none since Aug 2022 per his report COPD - followed and treated by his robotics engineer Dr Roque Plan: Pneumonia - management per medical/eICU services Continue home medications including rate controlling agents and OAC Monitor lab closely Hold Paula for JOE Bullock May 05, 2023 08:25
[2023-05-05] MEDS: AMIODARONE 200 MG TABLET PO SCH (08:41)
[2023-05-05] MEDS: MAGNESIUM OXIDE 400 MG TABLET PO SCH ×2 (08:41→17:39)
[2023-05-05] MEDS: FOLIC ACID 1 MG TAB PO SCH (08:42)
[2023-05-05] MEDS: THIAMINE 100 MG (VITAMIN B-1) TAB PO SCH (08:42)
[2023-05-05] MEDS: APIXABAN 5 MG TABLET PO SCH ×2 (08:42→19:38)
[2023-05-05] MEDS: SENNOSIDES 8.6 MG TABLET PO SCH ×2 (08:45→19:38)
[2023-05-05] MEDS: DOCUSATE SODIUM 100 MG CAPSULE PO SCH ×2 (08:47→19:38)
--- NOTE | 2023-05-05 10:22 | Progress Note ---
CARYN DIALLO 05/05/23 1022: Subjective Date Seen by a Provider: May 05, 2023 Time Seen by a Provider: 09:25 Subjective/Events-last exam 05/05/2023: CC: Acute on Chronic Hypoxic Respiratory Failure HPI: Edward, 67M, is on hospital day 2. Since yesterday, he states that he has improved slightly, but still has respiratory concerns. He notes that when he is moving around he gets SOB. He also is still unable to sleep supine in bed, he has to sleep in the recliner. He also notes that he has been more tired. Additionally, Edward has had some increased anxiety about his lung function. He notes that 6 months prior he had lung issues that resulted in intubation, so he worries that this is going to happen again. He says that the RT has helped and he thinks that the breathing treatments are helping. He says that the only things that cause SOB are walking and talking extensively. He notes that he is not in pain. He has no other concerns. He is urinating and BM. He wants to go home, but he understands that he needs IV ABx due to his drug allergies. Review of Systems General: No Chills, No Night Sweats; Fatigue; No Malaise HEENT: No Head Aches, No Visual Changes, No Eye Pain Pulmonary: No Dyspnea; Cough; No Pleuritic Chest Pain Cardiovascular: No: Chest Pain, Palpitations, Orthopnea, Edema Gastrointestinal: No: Nausea, Vomiting, Abdominal Pain, Diarrhea, Constipation Genitourinary: No Dysuria, No Frequency Musculoskeletal: No: neck pain, shoulder pain, arm pain, leg pain Neurological: No: Weakness, Numbness, Change in speech, Confusion Focused Exam Lactate Level 05/03/23 16:14: Lactic Acid Level 1.70 Objective Exam Last Set of Vital Signs Vital Signs Date Time Temp Pulse Resp B/P (MAP) Pulse Ox O2 Delivery O2 Flow Rate FiO2 05/05/23 08:22 95 Nasal Cannula 3.00 05/05/23 07:46 36.2 69 20 129/63 (85) 05/03/23 20:23 32 Capillary Refill : Less Than 3 Seconds I&O Intake and Output 05/05/23 00:00 Intake Total 2400 ml Output Total 975 ml Balance 1425 ml Intake Oral 1000 ml IV Total 1400 ml Output Urine Total 975 ml # Bowel Movements 1 General: Alert, Oriented X3, Cooperative, No Acute Distress HEENT: PERRLA, EOMI Neck: Supple, No JVD Lungs: Other (Rhonci, crackles, and cough) Heart: Regular Rate, Normal S1, Normal S2, No Murmurs Abdomen: Soft, No Tenderness Extremities: No Clubbing, No Cyanosis, No Edema Skin: No Rashes, No Significant Lesion Neuro: Normal Gait, Normal Speech, Sensation Intact Results Lab Laboratory Tests 05/05/23 04:27: White Blood Count 18.7H, Red Blood Count 3.52L, Hemoglobin 11.3L, Hematocrit 34L , Mean Corpuscular Volume 96, Mean Corpuscular Hemoglobin 32, Mean Corpuscular Hemoglobin Concent 34, Red Cell Distribution Width 15.9H, Platelet Count 136, Mean Platelet Volume 10.5, Immature Granulocyte % (Auto) 1, Neutrophils (%) (Auto) 86H, Lymphocytes (%) (Auto) 5L, Monocytes (%) (Auto) 7, Eosinophils (%) (Auto) 1, Basophils (%) (Auto) 0, Neutrophils # (Auto) 16.1H, Lymphocytes # (Auto) 1.0, Monocytes # (Auto) 1.2H, Eosinophils # (Auto) 0.1, Basophils # (Auto) 0.1, Immature Granulocyte # (Auto) 0.1, Percent Immature Platelet Fraction 4.9, Sodium Level 141, Potassium Level 3.6, Chloride Level 105, Carbon Dioxide Level 27, Anion Gap 9, Blood Urea Nitrogen 12, Creatinine 0.84, Estimat Glomerular Filtration Rate 96, BUN/Creatinine Ratio 14, Glucose Level 113H, Calcium Level 8.3L, Corrected Calcium 8.8, Magnesium Level 2.2, Total Bilirubin 1.0, Aspartate Amino Transf (AST/SGOT) 32, Alanine Aminotransferase (ALT/SGPT) 32, Alkaline Phosphatase 79, Total Protein 6.1L, Albumin 3.4 Microbiology 05/03/23 MRSA Screen - Final, Complete MRSA not isolated 05/03/23 Blood Culture - Preliminary, Resulted Assessment/Plan Assessment/Plan Assess & Plan/Chief Complaint 05/05/2023: Assessment/Plan: -Acute on Chronic Hypoxic Respiratory Failure * O2 Support, RT, Spiriva, Brio, Albuterol/Ipratropium -PNA * IV Meropenem, repeat CXR, -Sepsis * ABX, CBC and CMP monitoring -COPD Exacerbation Transfer to 4th floor due to decreased acuity of symptoms Diagnosis/Problems Diagnosis/Problems (1) Acute on chronic hypoxic respiratory failure Status: Acute (2) COPD (chronic obstructive pulmonary disease) Status: Chronic Qualifiers: Qualified Codes: J44.1 - Chronic obstructive pulmonary disease with (acute) exacerbation (3) Pneumonia Status: Acute Qualifiers: Qualified Codes: J18.9 - Pneumonia, unspecified organism (4) COPD exacerbation Status: Acute (5) Sepsis Status: Acute Qualifiers: Qualified Codes: A41.9 - Sepsis, unspecified organism (6) Elevated liver enzymes Status: Acute Clinical Quality Measures Admission Status Admission Dx Acute on Chronic Hypoxic Respiratory Failure MADIE JOHNSON DO 05/05/232053: Subjective Subjective/Events-last exam Patient much improved Denies any new issues Cough is minimal Review of Systems General: Fatigue, Malaise Objective Exam General: Alert, Oriented X3, Cooperative, No Acute Distress Lungs: Clear to Auscultation, Normal Air Movement Heart: Regular Rate, Normal S1, Normal S2, No Murmurs Psych/Mental Status: Mental Status NL, Mood NL Assessment/Plan Assessment/Plan Assess & Plan/Chief Complaint Continue antibiotics O2 Supportive care Supervisory-Addendum Brief Verification & Attestation Participated in pt care: history, MDM, physical Personally performed: exam, history, MDM, supervision of care Care discussed with: Medical Student Procedures: n/a Results interpretation: Verified all documentation Verification and Attestation of Medical Student E/M Service A medical student performed and documented this service in my presence. I revi ewed and verified all information documented by the medical student and made modifications to such information, when appropriate. I personally performed the physical exam and medical decision making. Madie Johnson May 05, 2023,20:53 CARYN DIALLO May 05, 2023 10:22 MADIE JOHNSON DO May 05, 2023 20:54
[2023-05-05] MEDS ORDERED: PATIENT MAY USE OWN MED,SINGLE MED PO SCH (15:30)
[2023-05-05] MEDS: MONTELUKAST 10 MG TABLET PO SCH (19:38)
[2023-05-06] MEDS ORDERED: RT-Ipratropium/Albuterol NEB 3 ML VIAL INH PRN (02:30)
[2023-05-06 03:33] VITALS: BP 126/69
[2023-05-06] MEDS: MEROPENEM INJECTION 500 MG in NS (IVPB) 100 ML 100 ML IV SCH ×4 (04:02→21:21)
[2023-05-06] MEDS ORDERED: SALINE NASAL SPRAY 45 ML BTL PRN (05:15)
[2023-05-06 05:38] LABS: BASOPHILS # (AUTO) 0.1 10^3/uL (0.0-0.1); BASOPHILS % (AUTO) 0 % (0-10); EOSINOPHILS # (AUTO) 0.2 10^3/uL (0.0-0.3); EOSINOPHILS % (AUTO) 2 % (0-10); HEMATOCRIT 35 % (40-54); HEMOGLOBIN 11.4 g/dL (13.3-17.7); LYMPHOCYTES # (AUTO) 1.1 10^3/uL (1.0-4.0); LYMPHOCYTES % (AUTO) 9 % (12-44); MEAN CORPUSCULAR HEMOGLOBIN 32 pg (25-34); MEAN CORPUSCULAR HGB CONC 32 g/dL (32-36); MEAN CORPUSCULAR VOLUME 99 fL (80-99); MEAN PLATELET VOLUME 11.1 fL (9.0-12.2); MONOCYTES % (AUTO) 8 % (0-12); NEUTROPHILS # (AUTO) 9.6 10^3/uL (1.8-7.8); NEUTROPHILS % (AUTO) 80 % (42-75); PLATELET COUNT 146 10^3/uL (130-400); WHITE BLOOD COUNT 11.9 10^3/uL (4.3-11.0)
[2023-05-06 06:00] LABS: ALBUMIN 3.6 GM/DL (3.2-4.5); BILIRUBIN,TOTAL 1.2 MG/DL (0.1-1.0); CALCIUM 8.6 MG/DL (8.5-10.1); CREATININE SERUM 0.76 MG/DL (0.60-1.30); POTASSIUM 3.9 MMOL/L (3.6-5.0); TOTAL PROTEIN 6.4 GM/DL (6.4-8.2)
[2023-05-06] MEDS: POTASSIUM CL 10MEQ/50ML IVPB 50 ML IV SCH (06:09)
[2023-05-06] MEDS: POTASSIUM CHLORIDE 20 MEQ TABLET PO SCH (06:10)
[2023-05-06] MEDS: MAGNESIUM 1 GM/100 ML IVPB 100 ML IV SCH (06:10)
[2023-05-06 07:26] VITALS: BP 115/67
[2023-05-06] MEDS: RT-Ipratropium/Albuterol NEB 3 ML VIAL INH SCH ×3 (08:08→21:10)
[2023-05-06] MEDS: FOLIC ACID 1 MG TAB PO SCH (08:44)
[2023-05-06] MEDS: AMIODARONE 200 MG TABLET PO SCH (08:44)
[2023-05-06] MEDS: APIXABAN 5 MG TABLET PO SCH ×2 (08:44→19:26)
[2023-05-06] MEDS: DOCUSATE SODIUM 100 MG CAPSULE PO SCH ×2 (08:44→19:27)
[2023-05-06] MEDS: SENNOSIDES 8.6 MG TABLET PO SCH ×2 (08:44→19:10)
[2023-05-06] MEDS: THIAMINE 100 MG (VITAMIN B-1) TAB PO SCH (08:44)
[2023-05-06] MEDS: guaiFENesin 600 MG TABLET PO SCH ×2 (08:44→19:27)
[2023-05-06] MEDS: MAGNESIUM OXIDE 400 MG TABLET PO SCH ×2 (08:44→17:18)
[2023-05-06] MEDS ORDERED: POTASSIUM CHLORIDE 20 MEQ TABLET PO ONE (09:00)
[2023-05-06 11:10] VITALS: BP 132/67
--- NOTE | 2023-05-06 12:46 | Progress Note ---
CARYN DIALLO 05/06/23 1246: Subjective Date Seen by a Provider: May 06, 2023 Time Seen by a Provider: 10:25 Subjective/Events-last exam 05/06/2023: CC: Acute on Chronic Hypoxic Respiratory Failure HPI: Edward, 67M, notes that he is feeling better. He is still sitting in the chair and feels unable to sleep supine. He is not in pain and has no SOB. When discussing returning home, Edward notes that he would be okay with it, but wants to make sure that his lungs are good. He still has some anxiety about potentially being intubated due to his history. He appears much better today. He understands that his ABx needed is IV due to his history of anaphylaxis with cephalosporins and penicillins. His agrees to staying another night to ensure that everything remains stable. He has no other concerns. He is in good spirits and is joking about his stay. Review of Systems General: No Chills, No Night Sweats; Fatigue HEENT: No Head Aches, No Visual Changes, No Eye Pain, No Ear Pain Pulmonary: No Dyspnea; Cough; No Pleuritic Chest Pain Cardiovascular: No: Chest Pain, Edema Gastrointestinal: No: Nausea, Vomiting, Abdominal Pain Genitourinary: No Dysuria, No Frequency, No Incontinence Musculoskeletal: No: other, neck pain, shoulder pain, arm pain, back pain, hand pain, leg pain, foot pain Neurological: No: Weakness, Numbness, Incoordination, Change in speech, Confusion, Seizures, Other Focused Exam Lactate Level 05/03/23 16:14: Lactic Acid Level 1.70 Objective Exam Last Set of Vital Signs Vital Signs Date Time Temp Pulse Resp B/P (MAP) Pulse Ox O2 Delivery O2 Flow Rate FiO2 05/06/23 11:10 36.6 67 17 132/67 (88) 94 Nasal Cannula 3.00 05/06/23 02:15 32 Capillary Refill : Less Than 3 Seconds I&O Intake and Output 05/06/23 00:00 Intake Total 1600 ml Balance 1600 ml Intake Oral 1600 ml # Voids 5 # Bowel Movements 2 General: Alert, Oriented X3, Cooperative, No Acute Distress HEENT: Atraumatic, PERRLA, EOMI Neck: Supple Lungs: Other (Rhonchi present, no changes negative changes. Slight improvement. Crackles present ) Heart: Regular Rate, Normal S1, Normal S2, No Murmurs Abdomen: Normal Bowel Sounds, Soft Extremities: No Clubbing, No Cyanosis, No Edema Skin: No Rashes, No Breakdown, No Significant Lesion Neuro: Normal Gait, Normal Speech, Strength at 5/5 X4 Ext, Normal Tone Results Lab Laboratory Tests 05/06/23 05:15: White Blood Count 11.9H, Red Blood Count 3.56L, Hemoglobin 11.4L, Hematocrit 35L , Mean Corpuscular Volume 99, Mean Corpuscular Hemoglobin 32, Mean Corpuscular Hemoglobin Concent 32, Red Cell Distribution Width 15.9H, Platelet Count 146, Mean Platelet Volume 11.1, Immature Granulocyte % (Auto) 1, Neutrophils (%) (Auto) 80H, Lymphocytes (%) (Auto) 9L, Monocytes (%) (Auto) 8, Eosinophils (%) (Auto) 2, Basophils (%) (Auto) 0, Neutrophils # (Auto) 9.6H, Lymphocytes # (Auto) 1.1, Monocytes # (Auto) 1.0, Eosinophils # (Auto) 0.2, Basophils # (Auto) 0.1, Immature Granulocyte # (Auto) 0.1, Sodium Level 142, Potassium Level 3.9, Chloride Level 102, Carbon Dioxide Level 29, Anion Gap 11, Blood Urea Nitrogen 9, Creatinine 0.76, Estimat Glomerular Filtration Rate 99, BUN/Creatinine Ratio 12, Glucose Level 86, Calcium Level 8.6, Corrected Calcium 8.9, Magnesium Level 2.0, Total Bilirubin 1.2H, Aspartate Amino Transf (AST/SGOT) 19, Alanine Aminotransferase (ALT/SGPT) 28, Alkaline Phosphatase 66, Total Protein 6.4, Albumin 3.6 Microbiology 05/03/23 Urine Culture - Final, Complete NO GROWTH 05/03/23 MRSA Screen - Final, Complete MRSA not isolated 05/03/23 Blood Culture - Preliminary, Resulted Assessment/Plan Assessment/Plan Assess & Plan/Chief Complaint 05/06/2023: Assessment/Plan: -Acute on Chronic Hypoxic Respiratory Failure * Ambulate, O2 support (potentially try to titrated down), RT, supportive medications -PNA * Meropenem -Sepsis * Abx, CBC/CMP -COPD Exacerbation * O2 support 05/05/2023: Assessment/Plan: -Acute on Chronic Hypoxic Respiratory Failure * O2 Support, RT, Spiriva, Brio, Albuterol/Ipratropium -PNA * IV Meropenem, repeat CXR, -Sepsis * ABX, CBC and CMP monitoring -COPD Exacerbation Transfer to 4th floor due to decreased acuity of symptoms Diagnosis/Problems Diagnosis/Problems (1) Acute on chronic hypoxic respiratory failure Status: Acute (2) COPD (chronic obstructive pulmonary disease) Status: Chronic Qualifiers: Qualified Codes: J44.1 - Chronic obstructive pulmonary disease with (acute) exacerbation (3) Pneumonia Status: Acute Qualifiers: Qualified Codes: J18.9 - Pneumonia, unspecified organism (4) COPD exacerbation Status: Acute (5) Sepsis Status: Acute Qualifiers: Qualified Codes: A41.9 - Sepsis, unspecified organism (6) Elevated liver enzymes Status: Acute Clinical Quality Measures Admission Status Admission Dx Acute on Chronic Hypoxic Respiratory Failure MADIE JOHNSON DO 05/06/232031: Subjective Subjective/Events-last exam Patient doing a lot better Denies any new issues no pain Breathing better Objective Exam General: Alert, Oriented X3, Cooperative, No Acute Distress Lungs: Other (Rhonchi present, no changes negative changes. Slight improvement. Crackles present ) Heart: Regular Rate Psych/Mental Status: Mental Status NL Assessment/Plan Assessment/Plan Assess & Plan/Chief Complaint Continue IV antibiotics Ambulate Oxygen Supervisory-Addendum Brief Verification & Attestation Participated in pt care: history, MDM, physical Personally performed: exam, history, MDM, supervision of care Care discussed with: Medical Student Procedures: n/a Results interpretation: Verified all documentation Verification and Attestation of Medical Student E/M Service A medical student performed and documented this service in my presence. I revie wed and verified all information documented by the medical student and made modifications to such information, when appropriate. I personally performed the physical exam and medical decision making. Madie Johnson May 06, 2023,20:31 CARYN DIALLO May 06, 2023 12:46 MADIE JOHNSON DO May 06, 2023 20:32
--- NOTE | 2023-05-06 13:02 | Progress Note - Cardiology ---
Cardiology SOAP Progress Note Subjective: He states he feels better today He has been up ambulating the room No c/o CP or palpitations Objective: I&O/Vital Signs 05/08/23 00:00 Intake Total 960 ml Balance 960 ml Weight (Pounds): 211 Weight (Ounces): 3.0 Weight (Calculated Kilograms): 95.358267 Constitutional: AAO x 3, well-developed, well-nourished Respiratory: No accessory muscle use; respiratory distress, chest expansion is symmetric, chest is bilaterally symmetric, rhonchi (scattered), other (coarse breath sounds) Cardiovascular: regular rate-rhythm; No JVD; S1 and S2 Gastrointestional: No tender; soft, round; No guarding; audible bowel sounds Extremities: no lower extremity edema bilateral Neurologic/Psychiatric: oriented x 3, other (moves all extremities) Skin: normal color; No rash on exposed areas, No ulcerations on exposed areas Results/Procedures: Labs Microbiology 05/03/23 Urine Culture - Final, Complete NO GROWTH 05/03/23 MRSA Screen - Final, Complete MRSA not isolated 05/03/23 Blood Culture - Preliminary, Resulted A/P: Assessment: Pneumonia - management per medical services H/O ac resp failure (and transient PEA) due to spontaneous L pneumothorax due to ruptured bleb (treated at [facility] in ) in November 2022 Ch diastolic CHF - clinically compensated - Echo of 12-05-22: LVEF 55-60%, PASP 30-35 mmHg Ch COPD H/o NICM - but echo at [facility], is reported to have shown normal LVEF (Dr Rizzo's note of 11/29/22) - No significant CAD on cath of 05/22/[address] Owens - LVEF 20% on DARSHANA of 05/23/15 - pt reports resolution of heart failure and cardiomyopathy after ablation of A Fl in May [address] Padilla at [facility] - DARSHANA prior to elec CV on 09/16/22: reduced systolic function, no thrombus, no shunt, mild MR, no veg H/o DELIA - intolerant to CPAP tx per pt report H/o Atrial flutter - treated with ablation by Dr Padilla in May 2015 - admitted on 09-15-22 to [facility] d/t a-fib with RVR - underwent cardioversion after DARSHANA was carried out, which was initially successful after 3 attempts - however, he converted back to a-fib with RVR and was then started on amiodarone by Dr. Paiz - SR CT chest 08/14/22 - Right lower lobe mass present for the past 5 years and showed minimal increased size from 2017, likely with a partial calcification consistent with benign behavior and requiring no further dedicated workup. COPD and coronary artery atherosclerotic calcification, chronic. No pneumonia, failure or acute abnormality. 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
--- NOTE | 2023-05-06 13:23 | Progress Note - Cardiology ---
Cardiology SOAP Progress Note Subjective: Gen weakness and malaise Shortness of breath much improved No cp or palp or syncope No n/v/d Objective: I&O/Vital Signs 05/06/23 05/06/23 05/06/23 05/06/23 02:15 03:33 05:07 07:00 Temp 37.0 36.2 Pulse 74 82 69 Resp 18 B/P (MAP) 126/69 (88) Pulse Ox 95 94 95 O2 Delivery Nasal Cannula Nasal Cannula O2 Flow Rate 3.00 3.00 3.00 FiO2 32 05/06/23 05/06/23 05/06/23 07:26 08:00 11:10 Temp 36.6 36.6 Pulse 61 67 Resp 16 17 B/P (MAP) 115/67 (83) 132/67 (88) Pulse Ox 96 94 O2 Delivery Nasal Cannula Nasal Cannula Nasal Cannula O2 Flow Rate 3.00 3.00 3.00 05/06/23 00:00 Intake Total 1600 ml Balance 1600 ml Weight (Pounds): 211 Weight (Ounces): 3.0 Weight (Calculated Kilograms): 95.238221 Constitutional: AAO x 3, well-developed, well-nourished Respiratory: No accessory muscle use; respiratory distress, chest expansion is symmetric, chest is bilaterally symmetric, rhonchi (scattered), other (coarse breath sounds) Cardiovascular: regular rate-rhythm; No JVD; S1 and S2 Gastrointestional: No tender; soft, round; No guarding; audible bowel sounds Extremities: no lower extremity edema bilateral Neurologic/Psychiatric: oriented x 3, other (moves all extremities) Skin: normal color; No rash on exposed areas, No ulcerations on exposed areas Results/Procedures: Labs Laboratory Tests 05/06/23 05:15: White Blood Count 11.9H, Red Blood Count 3.56L, Hemoglobin 11.4L, Hematocrit 35L , Mean Corpuscular Volume 99, Mean Corpuscular Hemoglobin 32, Mean Corpuscular Hemoglobin Concent 32, Red Cell Distribution Width 15.9H, Platelet Count 146, Mean Platelet Volume 11.1, Immature Granulocyte % (Auto) 1, Neutrophils (%) (Auto) 80H, Lymphocytes (%) (Auto) 9L, Monocytes (%) (Auto) 8, Eosinophils (%) (Auto) 2, Basophils (%) (Auto) 0, Neutrophils # (Auto) 9.6H, Lymphocytes # (Auto) 1.1, Monocytes # (Auto) 1.0, Eosinophils # (Auto) 0.2, Basophils # (Auto) 0.1, Immature Granulocyte # (Auto) 0.1, Sodium Level 142, Potassium Level 3.9, Chloride Level 102, Carbon Dioxide Level 29, Anion Gap 11, Blood Urea Nitrogen 9, Creatinine 0.76, Estimat Glomerular Filtration Rate 99, BUN/Creatinine Ratio 12, Glucose Level 86, Calcium Level 8.6, Corrected Calcium 8.9, Magnesium Level 2.0, Total Bilirubin 1.2H, Aspartate Amino Transf (AST/SGOT) 19, Alanine Aminotransferase (ALT/SGPT) 28, Alkaline Phosphatase 66, Total Protein 6.4, Albumin 3.6 Microbiology 05/03/23 Urine Culture - Final, Complete NO GROWTH 05/03/23 MRSA Screen - Final, Complete MRSA not isolated 05/03/23 Blood Culture - Preliminary, Resulted Laboratory Tests 05/05/23 04:27 05/06/23 05:15 A/P: Assessment: Pneumonia - management per medical services H/O ac resp failure (and transient PEA) due to spontaneous L pneumothorax due to ruptured bleb (treated at [facility] in ) in November 2022 Ch diastolic CHF - clinically compensated - Echo of 12-05-22: LVEF 55-60%, PASP 30-35 mmHg Ch COPD H/o NICM - but echo at [facility], is reported to have shown normal LVEF (Dr Rizzo's note of 11/29/22) - No significant CAD on cath of 05/22/[address] Owens - LVEF 20% on DARSHANA of 05/23/15 - pt reports resolution of heart failure and cardiomyopathy after ablation of A Fl in [address] Padilla at [facility] - DARSHANA prior to elec CV on 09/16/22: reduced systolic function, no thrombus, no shunt, mild MR, no veg H/o DELIA - intolerant to CPAP tx per pt report H/o Atrial flutter - treated with ablation by Dr Padilla in May 2015 - admitted on 09-15-22 to [facility] d/t a-fib with RVR - underwent cardioversion after DARSHANA was carried out, which was initially successful after 3 attempts - however, he converted back to a-fib with RVR and was then started on amiodarone by Dr. Paiz - SR CT chest 08/14/22 - Right lower lobe mass present for the past 5 years and showed minimal increased size from 2017, likely with a partial calcification consistent with benign behavior and requiring no further dedicated workup. COPD and coronary artery atherosclerotic calcification, chronic. No pneumonia, failure or acute abnormality. 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
[2023-05-06 15:48] VITALS: BP 144/77
[2023-05-06] MEDS: MONTELUKAST 10 MG TABLET PO SCH (19:26)
[2023-05-06 20:01] VITALS: BP 147/76
[2023-05-06] MEDS ORDERED: ALLOPURINOL 100 MG TABLET PO SCH (21:00)
[2023-05-06 23:15] VITALS: BP 140/60
[2023-05-07 04:00] VITALS: BP 134/76
[2023-05-07 05:54] LABS: BASOPHILS # (AUTO) 0.1 10^3/uL (0.0-0.1); BASOPHILS % (AUTO) 1 % (0-10); EOSINOPHILS # (AUTO) 0.3 10^3/uL (0.0-0.3); EOSINOPHILS % (AUTO) 3 % (0-10); HEMATOCRIT 35 % (40-54); HEMOGLOBIN 11.6 g/dL (13.3-17.7); LYMPHOCYTES # (AUTO) 1.1 10^3/uL (1.0-4.0); LYMPHOCYTES % (AUTO) 10 % (12-44); MEAN CORPUSCULAR HEMOGLOBIN 32 pg (25-34); MEAN CORPUSCULAR HGB CONC 33 g/dL (32-36); MEAN CORPUSCULAR VOLUME 97 fL (80-99); MEAN PLATELET VOLUME 10.6 fL (9.0-12.2); MONOCYTES # (AUTO) 0.9 10^3/uL (0.0-1.0); MONOCYTES % (AUTO) 9 % (0-12); NEUTROPHILS # (AUTO) 7.9 10^3/uL (1.8-7.8); NEUTROPHILS % (AUTO) 77 % (42-75); PLATELET COUNT 163 10^3/uL (130-400); WHITE BLOOD COUNT 10.3 10^3/uL (4.3-11.0)
[2023-05-07 06:07] LABS: ALBUMIN 3.6 GM/DL (3.2-4.5); POTASSIUM 4.1 MMOL/L (3.6-5.0)
[2023-05-07 06:08] LABS: CALCIUM 8.9 MG/DL (8.5-10.1)
[2023-05-07 06:09] LABS: TOTAL PROTEIN 6.4 GM/DL (6.4-8.2)
[2023-05-07 06:11] LABS: BILIRUBIN,TOTAL 1.4 MG/DL (0.1-1.0)
[2023-05-07 06:13] LABS: CREATININE SERUM 0.83 MG/DL (0.60-1.30)
[2023-05-07 06:16] LABS: MAGNESIUM 1.8 MG/DL (1.6-2.4)
[2023-05-07] MEDS: POTASSIUM CHLORIDE 20 MEQ TABLET PO SCH (06:23)
[2023-05-07] MEDS: MAGNESIUM 1 GM/100 ML IVPB 100 ML IV SCH (06:23)
[2023-05-07] MEDS: POTASSIUM CL 10MEQ/50ML IVPB 50 ML IV SCH (06:23)
[2023-05-07 07:38] VITALS: BP 148/80
[2023-05-07] MEDS: THIAMINE 100 MG (VITAMIN B-1) TAB PO SCH (08:08)
[2023-05-07] MEDS: guaiFENesin 600 MG TABLET PO SCH (08:08)
[2023-05-07] MEDS: APIXABAN 5 MG TABLET PO SCH (08:08)
[2023-05-07] MEDS: FOLIC ACID 1 MG TAB PO SCH (08:08)
[2023-05-07] MEDS: AMIODARONE 200 MG TABLET PO SCH (08:09)
[2023-05-07] MEDS: SENNOSIDES 8.6 MG TABLET PO SCH (08:09)
[2023-05-07] MEDS: DOCUSATE SODIUM 100 MG CAPSULE PO SCH (08:09)
[2023-05-07] MEDS: MAGNESIUM OXIDE 400 MG TABLET PO SCH (08:09)
--- NOTE | 2023-05-07 10:25 | Progress Note ---
CARYN DIALLO 05/07/23 1025: Progress Note 05/07/2023: CC: SOB/PNA Hospital Course: Edward is a 67 year old male that presented to the ED on 05/03 due to some flu- like symptoms and SOB. Edward has a history of respiratory issues. In November of 2022, he was intubated due to respiratory distress. Since this event he has used 2L of oxygen each night. Edward decided to come into the hospital after having to use 3L during the day while traveling back from [place]. Given his history, Edward was admitted to the ICU for management. Serology for flu A/B and COVID were negative. Edward was noted to have PNA. Given his drug allergy to Rocephin, penicillins and cephalosporins were not able to be used. Due to this IV Meropenem was used. Due to improvement, Edward was transferred to the 4th floor MED/SURG unit. At initial presentation, Edward's WBC count was elevated in the 30s, but over his course in the hospital this has continued to decrease to a normal level (10.3) at time of discharge. Over the course of his hospital stay, Riaz lungs have improved. He has some rhonchi present but this has shown improvement over the course of his hospital stay. Edward also struggled with some anxiety about potentially being intubated, but as his lung function improved these fears dissipated. Cardiology was also consulted and deferred care back to the medical team. It did not appear that his lung concerns were related to his cardiac system. Dr. Carty held his furosemide. Overall, Edward has improved substantially over the course of his stay. He is aware that his lungs have chronic issues, but is happy with the improvement that he has experienced during his stay. He has home oxygen that he can use as needed. He had a home oxygen test and will follow their guidelines for discharge. Edward is expected to have no further issues with this case of PNA. He will be discharged on PO Prednisone 40mg, tapered down per discharge order. He will also go home on Levofloxacin for continued management of his PNA and to prevent rebound illness. There are no other concerns. Edward should follow up with his PCP. MADIE KOROMA DO 05/07/232045: Supervisory-Addendum Brief Verification & Attestation Participated in pt care: history, MDM, physical Personally performed: exam, history, MDM, supervision of care Care discussed with: Medical Student Procedures: n/a Results interpretation: Verified all documentation Verification and Attestation of Medical Student E/M Service A medical student performed and documented this service in my presence. I reviewed and verified all information documented by the medical student and made modifications to such information, when appropriate. I personally performed the physical exam and medical decision making. Madie Koroma, May 07, 2023,20:46 CARYN DIALLO May 07, 2023 10:25 MADIE KOROMA DO May 07, 2023 20:46
--- NOTE | 2023-05-07 10:50 | Progress Note - Cardiology ---
Cardiology SOAP Progress Note Subjective: Gen weakness and malaise, imrpoving Shortness of breath improving No palp or syncope No n/v/d Objective: I&O/Vital Signs 05/06/23 05/07/23 05/07/23 05/07/23 23:15 01:00 04:00 07:00 Temp 36.8 36.7 Pulse 65 66 76 67 Resp 18 18 B/P (MAP) 140/60 (86) 134/76 (95) Pulse Ox 95 96 O2 Delivery Nasal Cannula Nasal Cannula O2 Flow Rate 3.00 3.00 05/07/23 05/07/23 07:38 08:00 Temp 36.6 Pulse 63 Resp 17 B/P (MAP) 148/80 (102) Pulse Ox 94 O2 Delivery Room Air Nasal Cannula O2 Flow Rate 4.00 05/07/23 00:00 Intake Total 1780 ml Balance 1780 ml Weight (Pounds): 211 Weight (Ounces): 3.0 Weight (Calculated Kilograms): [id number] Constitutional: AAO x 3, well-developed, well-nourished Respiratory: No accessory muscle use; respiratory distress, chest expansion is symmetric, chest is bilaterally symmetric, rhonchi (scattered), other (coarse breath sounds) Cardiovascular: regular rate-rhythm; No JVD; S1 and S2 Gastrointestional: No tender; soft, round; No guarding; audible bowel sounds Extremities: no lower extremity edema bilateral Neurologic/Psychiatric: oriented x 3, other (moves all extremities) Skin: normal color; No rash on exposed areas, No ulcerations on exposed areas Results/Procedures: Labs Laboratory Tests 05/07/23 05:25: White Blood Count 10.3, Red Blood Count 3.65L, Hemoglobin 11.6L, Hematocrit 35L, Mean Corpuscular Volume 97, Mean Corpuscular Hemoglobin 32, Mean Corpuscular He moglobin Concent 33, Red Cell Distribution Width 15.6H, Platelet Count 163, Mean Platelet Volume 10.6, Immature Granulocyte % (Auto) 1, Neutrophils (%) (Auto) 77H, Lymphocytes (%) (Auto) 10L, Monocytes (%) (Auto) 9, Eosinophils (%) (Auto) 3, Basophils (%) (Auto) 1, Neutrophils # (Auto) 7.9H, Lymphocytes # (Auto) 1.1, Monocytes # (Auto) 0.9, Eosinophils # (Auto) 0.3, Basophils # (Auto) 0.1, Immature Granulocyte # (Auto) 0.1, Sodium Level 141, Potassium Level 4.1, Chloride Level 100, Carbon Dioxide Level 31, Anion Gap 10, Blood Urea Nitrogen 9, Creatinine 0.83, Estimat Glomerular Filtration Rate 96, BUN/Creatinine Ratio 11, Glucose Level 94, Calcium Level 8.9, Corrected Calcium 9.2, Magnesium Level 1.8, Total Bilirubin 1.4H, Aspartate Amino Transf (AST/SGOT) 18, Alanine Aminotransferase (ALT/SGPT) 27, Alkaline Phosphatase 62, Total Protein 6.4, Albumin 3.6 Microbiology 05/03/23 Urine Culture - Final, Complete NO GROWTH 05/03/23 MRSA Screen - Final, Complete MRSA not isolated 05/03/23 Blood Culture - Preliminary, Resulted Laboratory Tests 05/06/23 05:15 05/07/23 05:25 A/P: Assessment: Pneumonia - management per medical services H/O ac resp failure (and transient PEA) due to spontaneous L pneumothorax due to ruptured bleb (treated at [facility] in ) in November 2022 Ch diastolic CHF - clinically compensated - Echo of 12-05-22: LVEF 55-60%, PASP 30-35 mmHg Ch COPD H/o NICM - but echo at [facility], is reported to have shown normal LVEF (Dr Rizzo's note of 11/29/22) - No significant CAD on cath of 05/22/[address] Owens - LVEF 20% on DARSHANA of 05/23/15 - pt reports resolution of heart failure and cardiomyopathy after ablation of A Fl in May [address] Padilla at [facility] - DARSHANA prior to elec CV on 09/16/22: reduced systolic function, no thrombus, no shunt, mild MR, no veg H/o DELIA - intolerant to CPAP tx per pt report H/o Atrial flutter - treated with ablation by Dr Padilla in May 2015 - admitted on 09-15-22 to [facility] d/t a-fib with RVR - underwent cardioversion after DARSHANA was carried out, which was initially successful after 3 attempts - however, he converted back to a-fib with RVR and was then started on amiodarone by Dr. Paiz - SR CT chest 08/14/22 - Right lower lobe mass present for the past 5 years and showed minimal increased size from 2017, likely with a partial calcification consistent with benign behavior and requiring no further dedicated workup. COPD and coronary artery atherosclerotic calcification, chronic. No pneumonia, failure or acute abnormality. Chronic tobacco use, quit in Aug 2022 H/o heavy alcohol use, none since Aug 2022 per his report COPD - followed and treated by his glassie Dr Roque Plan: Pneumonia, Dr Koroma managing Continue home medications including rate controlling agents and OAC Monitor lab closely OK to discharge home from cardiac stand point NADIR ORTEGA MD FACP [facility] CCDS May 07, 2023 10:50
[2023-05-07 11:28] VITALS: BP 137/77
[2023-05-07] MEDS ORDERED: predniSONE 20 MG TABLET PO NR (11:30)
[2023-05-07] MEDS ORDERED: PRD20T PO (12:50)
[2023-05-07] MEDS ORDERED: LEVO750T PO (12:50)
--- NOTE | 2023-05-07 12:52 | Discharge Summary ---
SILVA COLEMAN MD,RESIDENT 05/07/23 1252: Discharge Summary Hospital Course Was the Problem List Reviewed?: Yes Problems/Dx: (1) Acute on chronic hypoxic respiratory failure Status: Acute (2) COPD (chronic obstructive pulmonary disease) Status: Chronic Qualifiers: Qualified Codes: J44.1 - Chronic obstructive pulmonary disease with (acute) exacerbation (3) Pneumonia Status: Acute Qualifiers: Qualified Codes: J18.9 - Pneumonia, unspecified organism (4) COPD exacerbation Status: Acute (5) Sepsis Status: Acute Qualifiers: Qualified Codes: A41.9 - Sepsis, unspecified organism (6) Elevated liver enzymes Status: Acute Hospital Course Date of Admission: May 03, 2023 at 20:03 Admission Diagnosis : Family Physician/Provider: Tasha Nicolas MD Date of Discharge: 05/07/23 Discharge Diagnosis: Pneumonia Hospital Course: Edward is a 67 year old male that presented to the ED on 05/03 due to some flu- like symptoms and SOB. Edward has a history of respiratory issues. In November of 2022, he was intubated due to respiratory distress. Since this event he has used 2L of oxygen each night. Edward decided to come into the hospital after having to use 3L during the day while traveling back from [place]. Given his history, Edward was admitted to the ICU for management. Serology for flu A/B and COVID were negative. Edward was noted to have PNA. Given his drug allergy to Rocephin, penicillins and cephalosporins were not able to be used. Due to this IV Meropenem was used. Due to improvement, Edward was transferred to the 4th floor MED/SURG unit. At initial presentation, Edward's WBC count was elevated in the 30s, but over his course in the hospital this has continued to decrease to a normal level (10.3) at time of discharge. Over the course of his hospital stay, Riaz lungs have improved. He has some rhonchi present but this has shown improvement over the course of his hospital stay. Edward also struggled with some anxiety about potentially being intubated, but as his lung function improved these fears dissipated. Cardiology was also consulted and deferred care back to the medical team. It did not appear that his lung concerns were related to his cardiac system. Dr. Carty held his furosemide. Overall, Edward has improved substantially over the course of his stay. He is aware that his lungs have chronic issues, but is happy with the improvement that he has experienced during his stay. He has home oxygen that he can use as needed. He had a home oxygen test and will follow their guidelines for discharge. Edward is expected to have no further issues with this case of PNA. He will be discharged on PO Prednisone 40mg, tapered down per discharge order. He will also go home on Levofloxacin for continued management of his PNA and to prevent rebound illness. There are no other concerns. Edward should follow up with his PCP. Labs and Pending Lab Test: Laboratory Tests 05/07/23 05:25: White Blood Count 10.3, Red Blood Count 3.65L, Hemoglobin 11.6L, Hematocrit 35L, Mean Corpuscular Volume 97, Mean Corpuscular Hemoglobin 32, Mean Corpuscular Hemoglobin Concent 33, Red Cell Distribution Width 15.6H, Platelet Count 163, Mean Platelet Volume 10.6, Immature Granulocyte % (Auto) 1, Neutrophils (%) (Auto) 77H, Lymphocytes (%) (Auto) 10L, Monocytes (%) (Auto) 9, Eosinophils (%) (Auto) 3, Basophils (%) (Auto) 1, Neutrophils # (Auto) 7.9H, Lymphocytes # (Auto) 1.1, Monocytes # (Auto) 0.9, Eosinophils # (Auto) 0.3, Basophils # (Auto) 0.1, Immature Granulocyte # (Auto) 0.1, Sodium Level 141, Potassium Level 4.1, Chloride Level 100, Carbon Dioxide Level 31, Anion Gap 10, Blood Urea Nitrogen 9, Creatinine 0.83, Estimat Glomerular Filtration Rate 96, BUN/Creatinine Ratio 11, Glucose Level 94, Calcium Level 8.9, Corrected Calcium 9.2, Magnesium Level 1.8, Total Bilirubin 1.4H, Aspartate Amino Transf (AST/SGOT) 18, Alanine Aminotransferase (ALT/SGPT) 27, Alkaline Phosphatase 62, Total Protein 6.4, Albumin 3.6 Microbiology 05/03/23 Urine Culture - Final, Complete NO GROWTH 05/03/23 MRSA Screen - Final, Complete MRSA not isolated 05/03/23 Blood Culture - Preliminary, Resulted Home Meds Active Prednisone 20 Mg Tab 20 Mg PO DAILY 4 Days Take 2 tablets once daily for 2 days then take 1 tablet daily for 2 days. Levofloxacin 750 Mg Tablet 750 Mg PO DAILY 4 Days Reported Magnesium (Magnesium Oxide) 400 Mg Magnesium Tablet 400 Mg PO BID Folic Acid 1 Mg Tablet 1 Mg PO DAILY Vitamin B-1 (Thiamine HCl) 100 Mg Tablet 100 Mg PO DAILY Albuterol Sulfate 2.5 Mg/3 Ml (0.083 %) Vial.neb 2.5 Mg NEB Q8H PRN Furosemide 40 Mg Tablet 40 Mg PO DAILY Breztri Aerosphere Inhaler (Budesonide/Glycopyr/Formoterol) 160 Mcg-9 Mcg-4.8 Mcg/Actuation Hfa.aer.ad 2 Puff INH BID Metoprolol Succinate 25 Mg Tab.er.24h 25 Mg PO DAILY Singulair (Montelukast Sodium) 10 Mg Tablet 10 Mg PO HS Allopurinol 100 Mg Tablet 100 Mg PO 3X WEEKLY @HS Eliquis (Apixaban) 5 Mg Tablet 5 Mg PO BID Amiodarone HCl 200 Mg Tablet 200 Mg PO 1900 Ventolin Hfa (Albuterol Sulfate) 90 Mcg Hfa.aer.ad 2 Puff INH Q6H PRN Assessment/Pt Instructions Pneumonia Pt to continue with Prednisone daily on a taper (40 mg once daily for 2 days followed by 20 mg once daily for 2 days) Pt to start taking levaquin 750mg daily for 4 days Pt to follow-up with PCP in 7-14 days after discharge. Home oxygen ordered Discharge Instructions Discharge Diet: No Restrictions Activity as Tolerated: Yes Discharge Physical Examination Vital Signs Vital Signs Date Time Temp Pulse Resp B/P (MAP) Pulse Ox O2 Delivery O2 Flow Rate FiO2 05/07/23 12:50 64 05/07/23 11:28 36.5 18 137/77 (97) 95 Nasal Cannula 3.00 05/06/23 02:15 32 General Appearance: No Apparent Distress Respiratory: Chest Non Tender, No Accessory Muscle Use, No Respiratory Distr ess, Crackles Cardiovascular: Regular Rate, Rhythm Gastrointestinal: Non Tender, Soft Skin: Warm/Dry Neurologic/Psychiatric: Alert, Oriented x3, Normal Mood/Affect Allergies: Coded Allergies: ceftriaxone (Verified Allergy, Severe, Anaphylaxis, 05/03/23) NATALY Inhibitors (Verified Allergy, Unknown, 08/12/19) angioedema Discharge Summary Date of Admission May 03, 2023 at 20:03 Date of Discharge Discharge Diagnosis (1) Acute on chronic hypoxic respiratory failure Status: Acute (2) COPD (chronic obstructive pulmonary disease) Status: Chronic Qualifiers: Qualified Codes: J44.1 - Chronic obstructive pulmonary disease with (acute) exacerbation (3) Pneumonia Status: Acute Qualifiers: Qualified Codes: J18.9 - Pneumonia, unspecified organism (4) COPD exacerbation Status: Acute (5) Sepsis Status: Acute Qualifiers: Qualified Codes: A41.9 - Sepsis, unspecified organism (6) Elevated liver enzymes Status: Acute TABATHA JOHNSON DO 05/07/232053: Discharge Summary Hospital Course Was the Problem List Reviewed?: Yes Problems/Dx: (1) Acute on chronic hypoxic respiratory failure Status: Acute (2) COPD exacerbation Status: Acute (3) Pneumonia Status: Acute Qualifiers: Qualified Codes: J18.9 - Pneumonia, unspecified organism Hospital Course Hospital Course: Edward is a 67 year old male that presented to the ED on 05/03 due to some flu- like symptoms and SOB. Edward has a history of respiratory issues. In November of 2022, he was intubated due to respiratory distress. Since this event he has used 2L of oxygen each night. Edward decided to come into the hospital after having to use 3L during the day while traveling back from [place]. Given his history, Edward was admitted to the ICU for management. Serology for flu A/B and COVID were negative. Edward was noted to have PNA. Given his drug allergy to Rocephin, penicillins and cephalosporins were not able to be used. Due to this IV Meropenem was used. Due to improvement, Edward was transferred to the 4th floor MED/SURG unit. At initial presentation, Edward's WBC count was elevated in the 30s, but over his course in the hospital this has continued to decrease t o a normal level (10.3) at time of discharge. Over the course of his hospital stay, Riaz lungs have improved. He has some rhonchi present but this has shown improvement over the course of his hospital stay. Edward also struggled with some anxiety about potentially being intubated, but as his lung function improved these fears dissipated. Cardiology was also consulted and deferred care back to the medical team. It did not appear that his lung concerns were related to his cardiac system. Dr. Carty held his furosemide. Overall, Edward has improved substantially over the course of his stay. He is aware that his lungs have chronic issues, but is happy with the improvement that he has experienced during his stay. He has home oxygen that he can use as needed. He had a home oxygen test and will follow their guidelines for discharge. Edward is expected to have no further issues with this case of PNA. He will be discharged on PO Prednisone 40mg, tapered down per discharge order. He will also go home on Levofloxacin for continued management of his PNA and to prevent rebound illness. There are no other concerns. Edward should follow up with his PCP. CARYN DIALLO Assessment/Pt Instructions PCP 1 week Discharge Planning: <30 minutes discharge planning Discharge Instructions Discharge Diet: No Restrictions Discharge Physical Examination Allergies: Coded Allergies: ceftriaxone (Verified Allergy, Severe, Anaphylaxis, 05/03/23) NATALY Inhibitors (Verified Allergy, Unknown, 08/12/19) angioedema SILVA COLEMAN MD,RESIDENT May 07, 2023 12:52 TABATHA JOHNSON DO May 07, 2023 20:54
[2023-05-07 14:25] VITALS: BP 137/77
[2023-05-08] MEDS ORDERED: predniSONE 20 MG TABLET PO SCH (07:00)
== END 2023-05-07 13:25 | disposition home or self-care (01) | DRG 871 ==
LOC: EDUNIT# 15:56 → ER 15:58 → ICU 20:03 → CSD 05-04 15:18 → 4TH 05-05 11:53
PROVIDERS: ADMIT Internal Medicine; ATTEND Internal Medicine
DX: A41.9 Sepsis, unspecified organism (principal); J18.9 Pneumonia, unspecified organism; J96.21 Acute and chronic respiratory failure with hypoxia; N17.9 Acute kidney failure, unspecified; I50.32 Chronic diastolic (congestive) heart failure; J44.0 Chronic obstructive pulmonary disease with (acute) lower respiratory infection; J44.1 Chronic obstructive pulmonary disease with (acute) exacerbation; I48.0 Paroxysmal atrial fibrillation; I11.0 Hypertensive heart disease with heart failure; Z11.52 Encounter for screening for COVID-19; G47.33 Obstructive sleep apnea (adult) (pediatric); I34.0 Nonrheumatic mitral (valve) insufficiency; R74.8 Abnormal levels of other serum enzymes; M10.9 Gout, unspecified; Z99.81 Dependence on supplemental oxygen; Z87.891 Personal history of nicotine dependence; Z79.01 Long term (current) use of anticoagulants; Z79.891 Long term (current) use of opiate analgesic; Z79.899 Other long term (current) drug therapy; Z88.1 Allergy status to other antibiotic agents; Z91.09 Other allergy status, other than to drugs and biological substances
CPT/HCPCS: 36415; 71045; 80053; 81000; 83605; 83735; 83880; 84100; 85007; 85025; 85027; 85610; 85730; 86141; 87040; 87081; 87088; 87636; 93005; 94640; 94664; 94760; 94761